=== PATIENT | male | born 1955 | race Caucasian/White ===

== ENCOUNTER 2018-06-14 03:47 | Emergency (ER) | payer MEDICARE, SELFPAY ==
[2018-06-14] VITALS (10 sets, daily range): BP systolic 179–219; BP diastolic 101–112; PULSE 67–91; RESP 14–19; TEMP 36.6; O2SAT 96–98; BMI 38.3
--- NOTE | 2018-06-14 03:55 | EKG12_ITS ---
Test Reason : Blood Pressure : / mmHG Vent. Rate : 070 BPM Atrial Rate : 070 BPM P-R Int : 162 ms QRS Dur : 094 ms QT Int : 440 ms P-R-T Axes : 037 -39 -16 degrees QTc Int : 475 ms Sinus rhythm with Premature atrial complexes Left axis deviation Inferior infarct , age undetermined, cannot be excluded Abnormal ECG Confirmed by ASHWINI NDIAYE, STEVEN ([id number]), commercial production editor HAILEE COLON ([id number] on 06/16/2018 10:59:57 AM Referred By: DEBI Confirmed By:STEVEN MARADIAGA MD
--- NOTE | 2018-06-14 03:57 | ED.DCSUM_ITS ---
- ER Visit Summary Date of Service: 06/14/18 Chief Complaint: Woke up sweaty History of Present Illness: The patient is a 62 M with no primary care physician. Reports an hour and a half ago he woke from sleep with a night sweats. He denies any fever or chills. No chest pain, cough, or shortness of breath. No abdominal pain, nausea, vomiting, or diarrhea. No dysuria or frequency. No headache. No numbness or weakness. Physical Examination: Vitals: Stable. Afebrile. General: Well-nourished and well-developed. Head: Normocephalic atraumatic. Neck: Supple, no lymphadenopathy. No JVD. Nontender. Cardiovascular: Regular rate and rhythm. No murmurs. Respiratory: No respiratory distress. Clear to auscultation bilaterally. Abdominal: Soft, nontender, nondistended, normal bowel sounds. No guarding, rebound, or peritoneal signs. Back: Nontender. Extremities: Nontender, 3+ pitting edema of his lower extremity bilaterally. Skin: Normal color, no rash. Neurologic: Alert and oriented ?3. Cranial nerves II through XII are intact. Normal strength and sensation. Psych: Normal affect. Test Results: EKG is sinus at [address] changes. Q's inferiorly. No old EKG for comparison. CBC is marked for monocytes of 11. Chem-7 marked potassium 3.1, glucose 120, BUN 35, creatinine 2.14. Initial troponin 0 0.543. Chest x-ray shows no acute disease. Emergency Department Course and Treatment: Patient had an IV placed. He was given aspirin p.o. He is resting comfortably. Treatment Plan: Patient was discussed with Dr. Briggs. He will be admitted to the hospital for further evaluation and treatment. Dr. Briggs spoke with Dr. Daly and he has to the patient be transferred to a tertiary care center. The patient has been seen at [facility] by a vascular surgeon is asked for transfer there. Disposition: Admitted in improved condition. Impression: 1. Diaphoresis. 2. Indeterminate troponin. 3. Renal insufficiency. 4. Hypokalemia. 5. CHRISTA score of 2. This note was generated with [employer] dictation software. It may contain incorrect words, spelling, and punctuation that were not noted in review of the chart prior to signing ED Disposition - Plan for ED Patient: Chief Complaint: General Illness Referrals: [facility] Doctor,Out of [Primary Care Provider] -
[2018-06-14] MEDS: Aspirin 81 MG TAB.CHEW 324 MG PO (04:03)
--- NOTE | 2018-06-14 04:05 | RAD_ITS ---
STUDY: X-RAY CHEST REASON FOR EXAM: Male, 62 years old. Patient woke up not feeling well. TECHNIQUE: AP portable chest. COMPARISON: March 26, 2007. FINDINGS: The lungs are clear and expanded. There is no demonstrated pleural abnormality. Surgical clips overlying the base of the neck on the right and the right lung apex. No pneumothorax. Normal size heart. Normal mediastinum and cirilo. Normal visualized pulmonary arteries. Normal visualized aortic arch and descending thoracic aorta. Normal visualized thoracic spine. Normal visualized ribs, clavicles, and shoulders. There is no demonstrated abnormality of the visualized soft tissue structures of the upper abdomen. RAD/Chest 1 View (Portable) IMPRESSION: No acute cardiopulmonary disease. Electronically Signed: Alfonso Curiel MD at 5:04 EDT , Service support ,
[2018-06-14 04:32] LABS: Absolute Neutrophil Count 4.9 X10^3/uL (2.0-7.7); Basophil# 0.05 X10^3/uL; Basophil% 0.6 % (0-1); Eosinophil# 0.43 X10^3/uL; Eosinophils% 4.9 % (0-5); Hematocrit 46.8 % (40-54); Hemoglobin 16.4 g/dl (13.0-16.5); Lymphocyte % 28.2 % (19-41); Mean Corpuscular Hgb 31.8 pg (27.0-32.0); Mean Corpuscular Volume 90.9 fL (80-94); Mean Platelet Vol. 11.1 fl (6.2-12.0); Monocyte# 0.94 X10^3/uL; Monocyte% 10.6 % (0-10); Neutrophil # 4.92 X10^3/uL (2.7-7.7); Neutrophil % 55.5 % (47-70); POSITIVE COUNT NO; POSITIVE DIFFERENTIAL NO; POSITIVE MORPHOLOGY NO; Platelet Count 187 K/mm3 (150-450); RBC Distribution Width CV 13.2 % (11.6-14.6); RBC Distribution Width SD 43.3 fl (35.1-43.9); Red Blood Count 5.15 M/mm3 (4.6-6.2); White Blood Count 8.9 K/mm3 (4.4-11.0)
[2018-06-14 04:49] LABS: Anion Gap 10 (5-15); BUN 35 mg/dL (7-18); BUN/Creat Ratio 16.4 RATIO (10-20); Calcium,Total 8.7 mg/dL (8.5-10.1); Chloride 104 mmol/L (98-107); Creatinine, Serum 2.14 mg/dL (0.70-1.30); EST Glomerular Filtration Rate 33 mL/min (>60); Est Glom Filt Rate - Afr Amer 40 mL/min (>60); Estimated Creatinine Clearance 38.12 ml/min; Glucose 122 mg/dL (74-106); Potassium 3.1 mmol/L (3.5-5.1); Sodium Level 139 mmol/L (136-145)
--- NOTE | 2018-06-14 05:10 | PCM.HP.STD ---
Problem List (1) Chest pain Status: Acute Qualifiers: Chest pain type: unspecified Qualified Code(s): R07.9 - Chest pain, unspecified (2) HTN (hypertension) Status: Chronic Qualifiers: Hypertension type: essential hypertension Qualified Code(s): I10 - Essential (primary) hypertension (3) Obesity (BMI 30-39.9) Status: Chronic (4) Tobacco use Status: Chronic (5) Rheumatoid arthritis Status: Chronic Qualifiers: Rheumatoid arthritis location: unspecified site Rheumatoid factor presence: unspecified presence Qualified Code(s): M06.9 - Rheumatoid arthritis, unspecified History of Present Illness Date of Admission: 06/14/18 Chief Complaint: Diaphoresis, BL UE paresthesias The patient is a 62 y/o M w/ PMHx: Chronic BL LE Lymphedema w/ PVD, ? 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 In the ED upon evaluation he notes feeling improved since the initial onset but anxious given his need for admission. He notes that he following w/ his Grey Inspector who also is his primary care physician. He notes recent labs and denies any baseline renal disease. In the ED work-up included T 98, heart rate 74, BP initially 215/103--> 200/112, respiratory rate 18, 97% on room air, CBC unremarkable, BMP with potassium 3.1, BUN/creatinine 35/2.14, glucose 122, troponin 0 0.543, chest x-ray with no acute finding, EKG with non-specific changes but no comparison. In the ED patient administered aspirin 324 mg p.o. ?1. Past Medical History Past Medical History (Chronic Problems): Chronic Problems HTN (hypertension) (Chronic) Obesity (BMI 30-39.9) (Chronic) Tobacco use (Chronic) Rheumatoid arthritis (Chronic) Allergies No Known Allergies Allergy (Verified 06/14/18 03:48) Home Medications: Ambulatory Orders Medication Instructions Recorded Amlodipine [Norvasc] 10 mg PO DAILY 06/14/18 Aspirin [Aspirin, Baby] 162 mg PO DAILY@0800 06/14/18 Atenolol [Atenolol] 100 mg PO DAILY 06/14/18 Surgical History: - - 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 Psychiatric History: No pertinent psych hx Lives: Spouse/ Significant Other Smoking Status: Current every day smoker - Audra approximate one half pack per day since teenager although he did quit intermittently in between. Tobacco Use: Cigarettes Alcohol: None Drugs: None - *Family History Maternal History Items: - - Patient notes a maternal family history of heart disease/CO, age 8888 year old. Paternal History Items: Heart Disease, - - Father w/ Review of Systems Constitutional: Reports: Malaise, Weakness, Fatigue. Denies: Chills, Fever, Weight Change HEENT: Denies: Head Aches, Sinus Congestion, Sinus Drainage Cardiovascular: Reports: Edema. Denies: Chest Pain, Palpitations Respiratory: Denies: Cough, Shortness of breath at rest, Sputum production Gastrointestinal: Denies: Abdominal Pain, Nausea, Vomiting Genitourinary: Denies: Dysuria Musculoskeletal: Reports: Arm Pain. Denies: Joint Pain, Joint Tenderness Skin: Denies: Rash, Wounds Neurological: Denies: Numbness, Tingling, Focal weakness Psychiatric: Denies: Anxiety, Depression, Homicidal Ideations, Suicidal Ideations Hematologic/ Lymphatic: Denies: Easy Bruising, Easy Bleeding VTE Information - Inpt Only VTE Present on Admission: No VTE Mechan Device Prophylaxis: SCD's VTE Pharm Prophylaxis ordered?: Yes Patient Problems: Active and Suspected Problems Chest pain (Acute) Subjective: Seated upright in the ED bed, fatigued appearance, notes prior paresthesias and diaphoresis have since resolved. Objective: Physical Examination: General: awake, alert, oriented x 3 and cooperative, seated upright in the ED bed in no apparent distress. Skin: normal color, turgor, no icterus, cyanosis except notable BL LE chronic venous stasis skin changes and severe bilateral lower extremity lymphedema. HEENT: AT/NC, EOMI, PERRLA, MMM, no carotid bruits or JVD noted; ever thickened neck makes examination occult. Lungs: CTA bilaterally, moderate effort, mild decrease BL bases, no rales, ronchi or wheezing. Heart: Regular rate and rhythm; no gallop, rub audible. Abdomen: soft, obese, NTTP, ND, normal BS, no HSM; however, habitus makes examination difficult. Extremities: no cyanosis, clubbing, tonic bilateral lower extremity venous skin changes and severe lymphedema extending to knee bilaterally. Neurological: patient awake, alert, oriented x 3; cognitive function intact; pupils equally reactive to light and accomodation; cranial nerves II-XII grossly normal, moving all 4 extremities, no focal deficits, strength moderately to severely globally decreased secondary to acute presentation. Psychiatric: affect appears normal, no acute evidence of depressive or anxiety feelings. - Physical Exam Vital Signs Temp Pulse Resp BP Pulse Ox 98 F 91 19 H 200/112 H 98 06/14/18 03:48 06/14/18 05:03 06/14/18 05:03 06/14/18 05:03 06/14/18 05:03 Oxygen Flow Rate (L/min) 2 Oxygen Delivery Method Nasal Cannula Weight: 275 lb 2.19 oz Body Mass Index (BMI) 38.3 Laboratory Tests Past 24 Hrs 06/14/18 06/14/18 04:00 04:00 WBC 8.9 RBC 5.15 Hgb 16.4 Hct 46.8 MCV 90.9 MCH 31.8 MCHC 35.0 RDW 13.2 RDW Differential 43.3 Plt Count 187 MPV 11.1 Immature Gran % (Auto) 0.200 Neut % (Auto) 55.5 Lymph % (Auto) 28.2 [place] % (Auto) 10.6 H Eos % (Auto) 4.9 Baso % (Auto) 0.6 Absolute Neuts (auto) 4.9 Absolute Lymphs (auto) 2.50 Total Counted Not Reportable Sodium 139 Potassium 3.1 L Chloride 104 Carbon Dioxide 25.0 Anion Gap 10 BUN 35 H Creatinine 2.14 H Estim Creat Clear Calc 38.12 Est GFR (MDRD) Af Amer 40 L Est GFR (MDRD) Non-Af 33 L BUN/Creatinine Ratio 16.4 Glucose 122 H Calcium 8.7 Troponin I 0.543 H Assessment/Plan All Active Problems Chest pain (Acute) The patient is a 62 y/o M w/ PMHx: Chronic BL LE Lymphedema w/ PVD, ? 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 (1) Chest Pain w/ Acute NSTEMI: EKG in ED w/ non-specific changes but no comparison, CXR w/ no acute process. Trop elevated, 0.543. Will admit to ICU if unable to lower BP appropriate without drip usage, otherwise will transition to PCU, maintain on a monitored bed, continue serial cardiac enzymes and EKGs. Obtain magnesium level upon admission. Start Heparin drip given unclear trending of enzymes. Continue medical management w/ asa, BB, add statin w/ AM FLP. Cardiology consulted. Maintain NPO. ASA, NG, morphine. ECHO pending. (2) Hypertensive emergency: BP initially 215/103--> 200/112, requested labetolol in the ED, if BP improved w/ regimen will consider admission to the PCU; however, if intractable may need to consider ICU w/ NG or alternate agent. Awaiting Cardiology input. (3) Hypokalemia: Admission K+ 3.1, supplementation given, repeat level in AM. (4) ? ANI versus possible CKD unclear stage: Unclear baseline renal function, noted normal per patient, admission BUN/Cr 35/2.14, will hydrate, obtain FeNa, repeat BMP in AM, renal US. Given possible need for cardiac catheterization will attempt to reach out to his physicians to obtain baseline renal function. (5) Hyperglycemia: Admission glucose 122, hemoglobin A1c pending. (6) Obesity: Weight loss and lifestyle changes encouraged, nutrition consulted. (7) Hypertension: Continue home regimen including atenolol, Norvasc, PRN hydralazine. (8) Tobacco Abuse: Encouraged cessation, inpatient consultation per RT, NR if desired. (9) Rheumatoid Arthritis: Regimen noted listed, does following w/ Rheumatology. (10) Chronic Lymphedema w/ PVD: Notable on examination, has never worn compression. (11) DVT Prophylaxis: SCDs, heparin drip. FOLLOWING EVALUATION OF PATIENT DISCUSSED WITH CARDIOLOGY, DR. MARADIAGA AND GIVEN HISTORY, POSSIBLE UNDERLYING VASCULAR ISSUES, ANI OR POSSIBLE CKD W/ CURRENT PRESENTATION REQUESTED PATIENT BE TRANSFERRED FROM THE ED TO TERTIARY FACILITY. PATIENT REQUESTED [facility] THIS IS WHERE IS VASCULAR SURGEON IS LOCATED WHO PERFORMED THE ANEURYSM REPAIR. Code Visit Procedures: Other Procedure - See Report - ED Consultation: [id number]
--- NOTE | 2018-06-14 05:31 | HP.PCM_ITS ---
Problem List (1) Chest pain Status: Acute Qualifiers: Chest pain type: unspecified Qualified Code(s): R07.9 - Chest pain, unspecified (2) HTN (hypertension) Status: Chronic Qualifiers: Hypertension type: essential hypertension Qualified Code(s): I10 - Essential (primary) hypertension (3) Obesity (BMI 30-39.9) Status: Chronic (4) Tobacco use Status: Chronic (5) Rheumatoid arthritis Status: Chronic Qualifiers: Rheumatoid arthritis location: unspecified site Rheumatoid factor presence : unspecified presence Qualified Code(s): M06.9 - Rheumatoid arthritis, unspecified History of Present Illness Date of Admission: 06/14/18 Chief Complaint: Diaphoresis, BL UE paresthesias The patient is a 62 y/o M w/ PMHx: Chronic BL LE Lymphedema w/ PVD, ? 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 In the ED upon evaluation he notes feeling improved since the initial onset but anxious given his need for admission. He notes that he following w/ his Final Application Reviewer who also is his primary care physician. He notes recent labs and denies any baseline renal disease. In the ED work-up included T 98, heart rate 74, BP initially 215/103--> 200/112, respiratory rate 18, 97% on room air, CBC unremarkable, BMP with potassium 3.1, BUN/creatinine 35/2.14, glucose 122, troponin 0 0.543, chest x-ray with no acute finding, EKG with non-specific changes but no comparison. In the ED patient administered aspirin 324 mg p.o. ? 1. Past Medical History Past Medical History (Chronic Problems): Chronic Problems HTN (hypertension) (Chronic) Obesity (BMI 30-39.9) (Chronic) Tobacco use (Chronic) Rheumatoid arthritis (Chronic) Allergies No Known Allergies Allergy (Verified 06/14/18 03:48) Home Medications: Ambulatory Orders Medication Instructions Recorded Amlodipine [Norvasc] 10 mg PO DAILY 06/14/18 Aspirin [Aspirin, Baby] 162 mg PO DAILY@0800 06/14/18 Atenolol [Atenolol] 100 mg PO DAILY 06/14/18 Surgical History: - - 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 Psychiatric History: No pertinent psych hx Lives: Spouse/ Significant Other Smoking Status: Current every day smoker - Audra approximate one half pack per day since teenager although he did quit intermittently in between. Tobacco Use: Cigarettes Alcohol: None Drugs: None - *Family History Maternal History Items: - - Patient notes a maternal family history of heart disease/VT, age 8888 year old. Paternal History Items: Heart Disease, - - Father w/ Review of Systems Constitutional: Reports: Malaise, Weakness, Fatigue. Denies: Chills, Fever, Weight Change HEENT: Denies: Head Aches, Sinus Congestion, Sinus Drainage Cardiovascular: Reports: Edema. Denies: Chest Pain, Palpitations Respiratory: Denies: Cough, Shortness of breath at rest, Sputum production Gastrointestinal: Denies: Abdominal Pain, Nausea, Vomiting Genitourinary: Denies: Dysuria Musculoskeletal: Reports: Arm Pain. Denies: Joint Pain, Joint Tenderness Skin: Denies: Rash, Wounds Neurological: Denies: Numbness, Tingling, Focal weakness Psychiatric: Denies: Anxiety, Depression, Homicidal Ideations, Suicidal Ideations Hematologic/ Lymphatic: Denies: Easy Bruising, Easy Bleeding VTE Information - Inpt Only VTE Present on Admission: No VTE Mechan Device Prophylaxis: SCD's VTE Pharm Prophylaxis ordered?: Yes Patient Problems: Active and Suspected Problems Chest pain (Acute) Subjective: Seated upright in the ED bed, fatigued appearance, notes prior paresthesias and diaphoresis have since resolved. Objective: Physical Examination: General: awake, alert, oriented x 3 and cooperative, seated upright in the ED bed in no apparent distress. Skin: normal color, turgor, no icterus, cyanosis except notable BL LE chronic venous stasis skin changes and severe bilateral lower extremity lymphedema. HEENT: AT/NC, EOMI, PERRLA, MMM, no carotid bruits or JVD noted; ever thickened neck makes examination occult. Lungs: CTA bilaterally, moderate effort, mild decrease BL bases, no rales, ronchi or wheezing. Heart: Regular rate and rhythm; no gallop, rub audible. Abdomen: soft, obese, NTTP, ND, normal BS, no HSM; however, habitus makes examination difficult. Extremities: no cyanosis, clubbing, tonic bilateral lower extremity venous skin changes and severe lymphedema extending to knee bilaterally. Neurological: patient awake, alert, oriented x 3; cognitive function intact; pupils equally reactive to light and accomodation; cranial nerves II-XII grossly normal, moving all 4 extremities, no focal deficits, strength moderately to severely globally decreased secondary to acute presentation. Psychiatric: affect appears normal, no acute evidence of depressive or anxiety feelings. - Physical Exam Vital Signs Temp Pulse Resp BP Pulse Ox 98 F 91 19 H 200/112 H 98 06/14/18 03:48 06/14/18 05:03 06/14/18 05:03 06/14/18 05:03 06/14/18 05:03 Oxygen Flow Rate (L/min) 2 Oxygen Delivery Method Nasal Cannula Weight: 275 lb 2.19 oz Body Mass Index (BMI) 38.3 Laboratory Tests Past 24 Hrs 06/14/18 06/14/18 04:00 04:00 WBC 8.9 RBC 5.15 Hgb 16.4 Hct 46.8 MCV 90.9 MCH 31.8 MCHC 35.0 RDW 13.2 RDW Differential 43.3 Plt Count 187 MPV 11.1 Immature Gran % (Auto) 0.200 Neut % (Auto) 55.5 Lymph % (Auto) 28.2 [place] % (Auto) 10.6 H Eos % (Auto) 4.9 Baso % (Auto) 0.6 Absolute Neuts (auto) 4.9 Absolute Lymphs (auto) 2.50 Total Counted Not Reportable Sodium 139 Potassium 3.1 L Chloride 104 Carbon Dioxide 25.0 Anion Gap 10 BUN 35 H Creatinine 2.14 H Estim Creat Clear Calc 38.12 Est GFR (MDRD) Af Amer 40 L Est GFR (MDRD) Non-Af 33 L BUN/Creatinine Ratio 16.4 Glucose 122 H Calcium 8.7 Troponin I 0.543 H Assessment/Plan All Active Problems Chest pain (Acute) The patient is a 62 y/o M w/ PMHx: Chronic BL LE Lymphedema w/ PVD, ? 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 (1) Chest Pain w/ Acute NSTEMI: EKG in ED w/ non-specific changes but no comparison, CXR w/ no acute process. Trop elevated, 0.543. Will admit to ICU if unable to lower BP appropriate without drip usage, otherwise will transition to PCU, maintain on a monitored bed, continue serial cardiac enzymes and EKGs. Obtain magnesium level upon admission. Start Heparin drip given unclear trending of enzymes. Continue medical management w/ asa, BB, add statin w/ AM FLP. Cardiology consulted. Maintain NPO. ASA, NG, morphine. ECHO pending. (2) Hypertensive emergency: BP initially 215/103--> 200/112, requested labetolol in the ED, if BP improved w/ regimen will consider admission to the PCU; however, if intractable may need to consider ICU w/ NG or alternate agent. Awaiting Cardiology input. (3) Hypokalemia: Admission K+ 3.1, supplementation given, repeat level in AM. (4) ? ANI versus possible CKD unclear stage: Unclear baseline renal function, noted normal per patient, admission BUN/Cr 35/2.14, will hydrate, obtain FeNa, repeat BMP in AM, renal US. Given possible need for cardiac catheterization will attempt to reach out to his physicians to obtain baseline renal function. (5) Hyperglycemia: Admission glucose 122, hemoglobin A1c pending. (6) Obesity: Weight loss and lifestyle changes encouraged, nutrition consulted. (7) Hypertension: Continue home regimen including atenolol, Norvasc, PRN hydralazine. (8) Tobacco Abuse: Encouraged cessation, inpatient consultation per RT, NR if desired. (9) Rheumatoid Arthritis: Regimen noted listed, does following w/ Rheumatology. (10) Chronic Lymphedema w/ PVD: Notable on examination, has never worn compression. (11) DVT Prophylaxis: SCDs, heparin drip. FOLLOWING EVALUATION OF PATIENT DISCUSSED WITH CARDIOLOGY, DR. MARADIAGA AND GIVEN HISTORY, POSSIBLE UNDERLYING VASCULAR ISSUES, ANI OR POSSIBLE CKD W/ CURRENT PRESENTATION REQUESTED PATIENT BE TRANSFERRED FROM THE ED TO TERTIARY FACILITY. PATIENT REQUESTED [facility] THIS IS WHERE IS VASCULAR SURGEON IS LOCATED WHO PERFORMED THE ANEURYSM REPAIR. Code Visit Procedures: Other Procedure - See Report - ED Consultation: [id number]
--- NOTE | 2018-06-14 07:42 | NURSING ---
[facility] ACCEPTING DR STEWARD REPORT [phone]
--- NOTE | 2018-06-14 09:00 | ED.RN ---
lab called with critical lab results trop 1.520. Dr. Bethea made aware. no new orders at this time
== END 2018-06-14 09:14 | disposition short-term general hospital (02) ==
LOC: ED 05:27 → PCU 05:40
PROVIDERS: Emergency Provider Emergency Medicine
DX: R61 Generalized hyperhidrosis (principal); N28.9 Disorder of kidney and ureter, unspecified; E87.6 Hypokalemia; R79.89 Other specified abnormal findings of blood chemistry; I10 Essential (primary) hypertension; M06.9 Rheumatoid arthritis, unspecified; Z72.0 Tobacco use; Z79.82 Long term (current) use of aspirin; Z79.899 Other long term (current) drug therapy
CPT/HCPCS: 71045; 80048; 84484; 85025; 93005; 96361; 96374; 96376; 99285; J7030; J7040; A4216

== ENCOUNTER 2018-11-11 11:09 | Emergency (ER) | payer MEDICARE, SELFPAY ==
[2018-11-11 11:10] VITALS: BP 155/84; PULSE 61; RESP 16; TEMP 36.8; O2SAT 97; BMI 37.6
[2018-11-11] MEDS: Ondansetron 4 MG/2 ML Vial IV ×2 (11:45→14:05)
[2018-11-11] MEDS: morphine 8 MG/ML Syringe IV ×2 (11:45→12:44)
[2018-11-11] MEDS: 0.9% Normal Saline 1,000 ML 150 ML IV (11:49)
[2018-11-11 12:00] LABS: Absolute Lymphocyte Count 1.07 X10^3/ul (0.83-4.51); Absolute Neutrophil Count 8.9 X10^3/uL (2.0-7.7); Basophil# 0.03 X10^3/uL; Basophil% 0.3 % (0-1); Eosinophils% 1.8 % (0-5); Hematocrit 42.1 % (40-54); Hemoglobin 14.2 g/dl (13.0-16.5); Lymphocyte # 1.07 X10^3/ul (4.0); Lymphocyte % 9.7 % (19-41); Mean Corp Hgb Conc 33.7 g/gl (32-36); Mean Corpuscular Hgb 31.1 pg (27.0-32.0); Mean Corpuscular Volume 92.1 fL (80-94); Mean Platelet Vol. 11.2 fl (6.2-12.0); Monocyte# 0.78 X10^3/uL; Monocyte% 7.1 % (0-10); Neutrophil % 80.8 % (47-70); POSITIVE COUNT NO; POSITIVE DIFFERENTIAL NO; POSITIVE MORPHOLOGY NO; Platelet Count 186 K/mm3 (150-450); RBC Distribution Width SD 42.9 fl (35.1-43.9); Red Blood Count 4.57 M/mm3 (4.6-6.2)
[2018-11-11 12:08] LABS: Anion Gap 12 (5-15); BUN 33 mg/dL (7-18); BUN/Creat Ratio 13.4 RATIO (10-20); Calcium,Total 8.7 mg/dL (8.5-10.1); Chloride 104 mmol/L (98-107); Creatinine, Serum 2.47 mg/dL (0.70-1.30); EST Glomerular Filtration Rate 28 mL/min (>60); Est Glom Filt Rate - Afr Amer 34 mL/min (>60); Estimated Creatinine Clearance 33.03 ml/min; Glucose 147 mg/dL (74-106); Potassium 3.6 mmol/L (3.5-5.1); Sodium Level 139 mmol/L (136-145)
[2018-11-11 12:28] LABS: White Blood Cells 0 SEEN /hpf (0-5)
[2018-11-11 12:29] LABS: Color, Urine Yellow (Yellow); Glucose, Dipstick Normal (Normal); Ketone-Dipstick Negative (Negative); Leukocyte Esterase-Dipstick Negative /ul (Negative); Nitrite-Dipstick Negative (Negative); Occult Blood-Urine 250 /ul (Negative); Protein-Dipstick 500 mg/dl (Negative); Specific Gravity, Urine 1.015 (1.002-1.030); Urine Bilirubin Dipstick Negative (Negative); Urine Clarity Sl. Cloudy (Clear); Urine Urobilinogen Normal (Normal)
[2018-11-11 12:35] LABS: Bacteria RARE /hpf (None Seen); Mucous, Urine RARE /hpf (<or=2+); Red Blood Cells-Urine 10-25 SEEN /hpf (0-5); Squamous Epithelial Cells - UA 0-5 SEEN /hpf (0-5)
--- NOTE | 2018-11-11 12:38 | CT_ITS ---
STUDY: CT ABDOMEN AND PELVIS WITHOUT CONTRAST REASON FOR EXAM: Male, 62 years old. Severe pain following a left renal biopsy. RADIATION DOSAGE (If Supplied By Facility): CTDIvol = ( 14.80 ) mGy, DLP = ( 800.05 ) mGycm TECHNIQUE: Transaxial images were obtained from the dome of the diaphragm to the symphysis pubis without oral contrast, and without intravenous contrast. Sagittal and coronal images were reconstructed. Individualized dose optimization techniques were used for this CT. COMPARISON: None. FINDINGS: Minimal degree of linear atelectasis at the right lung base. Coronary artery calcification. Normal liver. Normal gallbladder and extrahepatic biliary system. Normal spleen. Normal pancreas. Normal bilateral adrenal glands. Normal right kidney. There is evidence of a left perinephric stranding. Mild deformity along the anterior superior aspect of the left kidney most likely the site of the renal biopsy. There is no evidence of perinephric hematoma. Fullness of the left renal pelvis. There is evidence of a focal increased density at the left ureteropelvic junction. This may represent a small blood clot causing mild degree of left renal pelvic dilatation. There is a small hiatal hernia. Normal small intestine. There are multiple colonic diverticula consistent with diverticulosis. The appendix is visualized and appears normal. There is diffuse atherosclerotic calcification of the abdominal aorta, without a demonstrated aneurysm. Normal inferior vena cava. Normal retroperitoneum. Normal urinary bladder. There are prostatic calcifications. There is evidence of prior umbilical hernia repair with a mesh. There are degenerative changes of the visualized lumbar spine. Minimal anterior listhesis of L4 on L5. CT/Abdomen/Pelvis without Cont IMPRESSION: Left perinephric stranding with deformity of the anterior superior aspect of the left kidney most likely the site of the biopsy. Mild degree of dilatation of the left renal pelvis down to a focal area of increased density at the left ureteral pelvic junction most likely representing a small blood clot. No significant perinephric hematoma is seen. Electronically Signed: Pierce Kuhn MD at 13:25 EST Tel [phone], Service support ,
[2018-11-11 13:26] VITALS: BP 166/94; PULSE 69; RESP 18
[2018-11-11] MEDS: HYDROmorphone 1 MG/ML Syringe IV (14:02)
[2018-11-11 14:06] VITALS: BP 179/97; PULSE 72; RESP 18; O2SAT 95
--- NOTE | 2018-11-11 14:45 | ED.VISSUMM ---
- ER Visit Summary Date of Service: 11/11/18 Chief Complaint: Severe left flank pain History of Present Illness: The patient is a 62 M status post left renal biopsy at [facility] yesterday. Presents after speaking with the coordinator at [facility]. He reported chills and sweats this morning in addition to the severe pain. He does report nausea without vomiting or diarrhea. He reported hematuria last evening. He denies gross blood this morning. He denies discomfort with urination. He denies cough, shortness of breath, difficulty breathing or dyspnea on exertion. He denies anginal-like symptoms. He does report generalized weakness. Review of systems otherwise negative. Physical Examination: Vital signs noted and blood pressure is elevated 135/84. He does appear uncomfortable. HEENT exam is unremarkable. Heart is regular without murmur, gallop or rub. S1 and S2 are normal. Lungs are clear to auscultation with good movement of air bilaterally. Abdomen is soft nontender. There is no CVA tenderness noted. Biopsy site is noted with no erythema, warmth, induration or fluctuance. Lower extremity exam is unremarkable. Neuro exam is nonfocal. Test Results: White count is 11.0 with 81 segs no bands. BUN and creatinine are 33 and 2.47 with a GFR of 28. Glucose is 147. There are 5-10 RBCs on microscopic urinalysis. There is no evidence of infection. CT of the abdomen pelvis without contrast was ordered because of the low GFR. There is perinephric stranding with small hematoma and clot resulting in mild hydronephrosis. Emergency Department Course and Treatment: Patient had an IV established was given several doses of morphine IV push and Zofran. He was subsequently given 1 mg of Dilaudid. He states he feels markedly better. The pain is not resolved, however. Treatment Plan: Prescription for Dilaudid and follow-up with real estate underwriter as scheduled Disposition: Discharge to home Impression: Left flank pain secondary to hydronephrosis status post renal biopsy with small hematoma This note was generated with [employer] dictation software. It may contain incorrect words, spelling, and punctuation that were not noted in review of the chart prior to signing ED Disposition - Plan for ED Patient: Disposition: Home or Assisted Living Chief Complaint: Back Instructions: ED Wound Check Post Op No Infec, ED Post Op Pain Prescriptions: HYDROmorphone tablet [Dilaudid] 2 mg PO Q4H PRN PRN 2 Days #12 tab PRN Reason: Severe flank pain Referrals: Care Physician,No Primary [Primary Care Provider] - Additional Instructions: Follow-up with your real estate underwriter as scheduled and/or needed
--- NOTE | 2018-11-11 14:51 | ED.DCSUM_ITS ---
- ER Visit Summary Date of Service: 11/11/18 Chief Complaint: Severe left flank pain History of Present Illness: The patient is a 62 M status post left renal biopsy at [facility] yesterday. Presents after speaking with the coordinator at [facility]. He reported chills and sweats this morning in addition to the severe pain. He does report nausea without vomiting or diarrhea. He reported hematuria last evening. He denies gross blood this morning. He denies discomfort with urination. He denies cough, shortness of breath, difficulty breathing or dyspnea on exertion. He denies anginal-like symptoms. He does report generalized weakness. Review of systems otherwise negative. Physical Examination: Vital signs noted and blood pressure is elevated 135/84. He does appear uncomfortable. HEENT exam is unremarkable. Heart is regular without murmur, gallop or rub. S1 and S2 are normal. Lungs are clear to auscultation with good movement of air bilaterally. Abdomen is soft nontender. There is no CVA tenderness noted. Biopsy site is noted with no erythema, warmth, induration or fluctuance. Lower extremity exam is unremarkable. Neuro exam is nonfocal. Test Results: White count is 11.0 with 81 segs no bands. BUN and creatinine are 33 and 2.47 with a GFR of 28. Glucose is 147. There are 5-10 RBCs on microscopic urinalysis. There is no evidence of infection. CT of the abdomen pelvis without contrast was ordered because of the low GFR. There is perinephric stranding with small hematoma and clot resulting in mild hydronephrosis. Emergency Department Course and Treatment: Patient had an IV established was given several doses of morphine IV push and Zofran. He was subsequently given 1 mg of Dilaudid. He states he feels markedly better. The pain is not resolved, however. Treatment Plan: Prescription for Dilaudid and follow-up with hvac controls technician as scheduled Disposition: Discharge to home Impression: Left flank pain secondary to hydronephrosis status post renal biopsy with small hematoma This note was generated with [employer] dictation software. It may contain incorrect words, spelling, and punctuation that were not noted in review of the chart prior to signing ED Disposition - Plan for ED Patient: Disposition: Home or Assisted Living Chief Complaint: Back Instructions: ED Wound Check Post Op No Infec, ED Post Op Pain Prescriptions: HYDROmorphone tablet [Dilaudid] 2 mg PO Q4H PRN PRN 2 Days #12 tab PRN Reason: Severe flank pain Referrals: Care Physician,No Primary [Primary Care Provider] - Additional Instructions: Follow-up with your hvac controls technician as scheduled and/or needed
--- NOTE | 2018-11-11 14:53 | ED.DCSUM_ITS ---
- ER Visit Summary Date of Service: 11/11/18 Chief Complaint: [] History of Present Illness: The patient is a 62 M [] Physical Examination: [] Test Results: [] Emergency Department Course and Treatment: [] Treatment Plan: [] Disposition: [] Impression: [] This note was generated with [employer] dictation software. It may contain incorrect words, spelling, and punctuation that were not noted in review of the chart prior to signing ED Disposition - Plan for ED Patient: Disposition: Home or Assisted Living Chief Complaint: Back Instructions: ED Wound Check Post Op No Infec, ED Post Op Pain Prescriptions: HYDROmorphone tablet [Dilaudid] 2 mg PO Q4H PRN PRN 2 Days #12 tab PRN Reason: Severe flank pain Ondansetron [Zofran Odt] 4 mg PO Q8H PRN PRN #10 tab PRN Reason: Nausea Referrals: Care Physician,No Primary [Primary Care Provider] - Additional Instructions: Follow-up with your manager assisted living as scheduled and/or needed
[2018-11-11 15:16] VITALS: BP 159/102; PULSE 74; RESP 16; O2SAT 92
--- NOTE | 2018-11-11 15:30 | ED.RN ---
reviewed dc instructions. pt concerned for pain levels. conversation with dr domínguez. pt able to take his rx as soon as he gets it filled. tubed rx fro retail pharmacy for pt. to pickup prior to dc. no further needs voiced.
== END 2018-11-11 16:21 | disposition home or self-care (01) ==
PROVIDERS: Emergency Provider Emergency Medicine
DX: N99.840 Postprocedural hematoma of a genitourinary system organ or structure following a genitourinary system procedure (principal); N99.89 Other postprocedural complications and disorders of genitourinary system; N13.30 Unspecified hydronephrosis; E66.9 Obesity, unspecified; Z72.0 Tobacco use
CPT/HCPCS: 74176; 80048; 81001; 85025; 96361; 96374; 96375; 96376; 99284; J7030; A4216; J2405

== ENCOUNTER 2019-11-22 11:34 | Observation (INO) | payer MEDICARE, SELFPAY ==
[2019-11-21 14:29] VITALS: BMI 37.6
[2019-11-22] VITALS (15 sets, daily range): BP systolic 140–165; BP diastolic 78–96; PULSE 64–75; RESP 16–20; TEMP 36.4–36.9; O2SAT 96–98; BMI 40.3
--- NOTE | 2019-11-22 08:52 | EKG12_ITS ---
Test Reason : PREOP Blood Pressure : / mmHG Vent. 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
[2019-11-22] MEDS: 0.45% Normal Saline 1,000 ML 15 ML IV (09:15)
[2019-11-22 09:16] LABS: Hematocrit 30.6 % (40-54); Hemoglobin 10.1 g/dL (13.0-16.5); Mean Corpuscular Hgb 30.9 pg (27.0-32.0); Mean Corpuscular Volume 93.6 fL (80-94); Mean Platelet Vol. 9.9 fl (6.2-12.0); Platelet Count 121 K/mm3 (150-450); RBC Distribution Width CV 15.6 % (11.6-14.6); RBC Distribution Width SD 53.8 fl (35.1-43.9); Red Blood Count 3.27 M/mm3 (4.6-6.2); White Blood Count 6.7 K/mm3 (4.4-11.0)
[2019-11-22 09:32] LABS: Anion Gap 9 (5-15); BUN 102 mg/dL (7-18); Calcium,Total 7.4 mg/dL (8.5-10.1); Chloride 115 mmol/L (98-107); EST Glomerular Filtration Rate 10 mL/min (>60); Est Glom Filt Rate - Afr Amer 12 mL/min (>60); Estimated Creatinine Clearance 12.84 ml/min; Glucose 93 mg/dL (74-106); Potassium 4.2 mmol/L (3.5-5.1); Sodium Level 141 mmol/L (136-145)
--- NOTE | 2019-11-22 09:52 | HP.PCM_ITS ---
Problem List (1) Chronic renal insufficiency, stage V Status: Chronic History and Physical Date of Admission: 11/22/19 [facility] [address] [place], [place] [address] OFFICE VISIT Date of Service: 11/21/19 MR#: [id number] Acct: [id number] Name: BINDU DUMONT Rep #: [id number] : 1955 Provider: Love ott PA-C Age/Sex: 64/M Location: [facility] Status: Signed 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 Placement Branch Coordinator Required: No Is patient in pain?: Yes (generalized) Allergies No Known Allergies Allergy (Verified 11/21/19 14:29) Medications Aspirin [Aspirin, Baby] 81 mg PO DAILY@0800 06/14/18 [History Confirmed 11/21/19] Acetaminophen [Tylenol Extra Strength] 500 mg PO DAILY 11/21/19 [History Confirmed 11/21/19] Carvedilol 25 mg PO BID 11/21/19 [History Confirmed 11/21/19] Cyanocobalamin [Vitamin B12] 500 mcg PO DAILY@0800 11/21/19 [History Confirmed 11/21/19] Nifedipine [Nifedipine ER] 60 mg PO DAILY 11/21/19 [History Confirmed 11/21/19] Pantoprazole Sodium [Protonix] 40 mg PO DAILY 11/21/19 [History Confirmed 11/21/19] Prednisone 20 mg PO DAILY 11/21/19 [History Confirmed 11/21/19] [facility] Medical History Cardiac disease (Acute) Kidney failure due to vascular disorder (Acute) 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 Patient states back in June of 2018 he woke in the middle of the night with tingling all over his body. He presented to the [place] ED and was transferred to [facility] due to possible heart attack/previous subclavian graft placement. Patient noted he was hospitalized for 5 days. He noted there was never a definitive diagnosis made as far as why he had decreased renal function. Patient noted he had a kidney biopsy in November 2018 which was non-specific and did not have a diagnosis. Patient then went to his PCP who referred the patient to Dr. Russo. Dr. Russo ran numerous lab tests which revealed patient had rheumatoid vasculitis. Patient was started on prednisone approximately 1 month ago. He noted unfortunately his kidneys did not rebound back. Patient has never been on dialysis previously. He does not have a current start date for dialysis. Patient states he has discussed with Dr. Russo about a fistula creation which he would like to pursue. He has not had any vein mapping at this point. Patient notes the previous subclavian stent graft was placed approximately 12 years ago after having multiple blood clots in the right upper extremity. ROS General General: Yes fatigue; no weight change, appetite, colon cancer, breast cancer or weakness HEENT HEENT: No difficulty swallowing, eye injury, eye surgery, swollen glands or hoarseness Endo Endocrine: No thyroid disease, diabetes mellitus, thyroid cancer, Hair loss, heat intolerance or cold intolerance Skin Skin: No rash or changing moles Breast Breast: No left breast lump, right breast lump, nipple discharge, breast pain, abnormal mammogram, abnormal US or breast enlargement Musc Musculoskeletal: Yes back problems, arthritis and rheumatoid arthritis; no gout or joint pain Cardio Cardiovascular: Yes murmur; no pacemaker, heart disease, atrial fibrillation, high blood pressure, heart attack, heart stent, palpitations, shortness of breat with exertion or chest pain Psych Psychiatric: No depression, anxiety or hearing voices Resp Respiratory: Yes shortness of breath, No sleep apnea, No cough, No COPD, No asthma, No emphysema, No wheezing Gastro Gastrointestinal: No abdominal pain, No nausea or vomiting, No diarrhea, No constipation, No blood in stool, No acid reflux, No hemorrhoids, No ulcers, No gallbladder problem, No black,tarry stools Matthew Hematologic: Yes blood thinners, No blood disorders, No bleeding, No anemia, No blood clots Neuro Neurologic: No system reviewed and no additional complaints, except as docu, No as per HPI, No abnormal walking, No abnormal hearing, No abnormal movements, No abnormal speech, No behavioral changes, No burning sensations, No confusion, No seizure-like activity, No unsteadiness, No dizziness, No localized weakness, No frequent falls, No headache(s), No lack of coordination, No loss of vision, No memory loss, No numbness, No other visual disturbances, No radiating pain, No restless legs, No sensory deficit, No fainting, No tingling, No tremor(s), No weakness, No other Exam Const General: cooperative, healthy appearing, comfortable, no acute distress [facility] Head: normal to inspection Eyes General: appearance normal, both eyes and all related structures Neck Neck: normal visual inspection Neck mass: No Chest Breast Palpation: No nipple discharge Resp Effort & Inspection: normal respiratory effort Auscultation: clear to auscultation bilaterally Cardio Rate: regular rate Rhythm: regular rhythm Heart Sounds: murmur GI Inspection: normal to inspection, obesity Auscultation: normal bowel sounds Skin General: dry skin Other: right upper chest- two nicely healed incisions noted. Neuro General: no focal motor deficits, CN's II-XI intact bilaterally Extrem General: edema Laterality: bilateral Psych Appearance: grossly normal Affect: normal affect Assessment & Plan Problems 1. Stage 5 chronic kidney disease not on chronic dialysis N18.5 2. Rheumatoid vasculitis M05.[address] Nuñez will plan to perform a left possible right tunneled dialysis chest catheter placement. Procedure details, risks and benefits have been explained. Patient has had the opportunity to ask and have questions answered. Patient verbally understands and agrees with the plan. Patient will be scheduled for vein mapping. He is scheduled for chest catheters for tomorrow. 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 ~ The patient was reevaluated. He apparently has rheumatoid arthritis and rheumatoid vasculitis. Prednisone is not been effective. He has chronic bilateral lower extremity lymphedema and he has significant fluid retention throughout. He has been treated recently with prednisone without benefit. He has had a right subclavian biologic graft placed in treatment of a subclavian artery aneurysm. Clearly he represents a higher risk operative intervention candidate. I have proposed for him a left internal jugular tunneled dialysis catheter placement. With his present we have discussed the technique, benefit, risk, alternatives. He is aware that we anticipate that this is a bridge device and do not anticipate this to be a long-term access. The patient will require future vein mapping of his upper extremities to see if he would be a future fistula candidate. He has significant edema of both upper extremities which would make that surgery quite challenging at this time. We will proceed with placement of the tunneled catheters Arian Nuñez M.D., F.A.C.S.
[2019-11-22] MEDS: Cefazolin 2 GM in 0.9% Normal Saline 100 ML IV (10:17)
--- NOTE | 2019-11-22 10:20 | DCINST_ITS ---
Discharge Diet: Renal Diet Discharge Activity: May Not Drive, May Not Shower Lifting Restrictions: 10 lb weight lifting restriction Additional Dressing/Incision Instructions:: Please keep your catheter sites clean and dry. Dressing changes will be performed per the dialysis center Additional Instructions: You may resume your prednisone today. You may resume your aspirin tomorrow Allergies/Adverse Reactions: Allergies No Known Allergies Allergy (Verified 11/22/19 09:03) Medications to take at Discharge Aspirin [Aspirin, Baby] 81 mg PO DAILY@0806/14/18 Acetaminophen [Tylenol Extra Strength] 500 mg PO DAILY 11/21/19 Carvedilol 25 mg PO BID 11/21/19 Cyanocobalamin [Vitamin B12] 500 mcg PO DAILY@0800 11/21/19 Nifedipine [Nifedipine ER] 60 mg PO DAILY 11/21/19 Pantoprazole Sodium [Protonix] 40 mg PO DAILY 11/21/19 Prednisone 20 mg PO DAILY 11/21/19 Primary Care Physician: Bekah Washington MD [Primary Care Provider] - Test Results: Test results from this visit will be discussed in further detail at your follow- up appointment, if applicable. Please Follow Up With: Arian Nuñez MD - [phone] When: Please plan to follow up in 7 days in the office.
[2019-11-22] MEDS: Heparin 10,000 UNITS/10 ML Vial 10000 UNITS (10:58)
[2019-11-22] MEDS: Bupivacaine Mpf 0.5% 30 ML VIAL (11:07)
--- NOTE | 2019-11-22 11:07 | PCM.OPRPT ---
Problem List (1) Chronic renal insufficiency, stage V Status: Chronic Report of Operation Date of Procedure: 11/22/19 Pre-Operative Diagnosis: Stage V chronic renal insufficiency Post-Operative Diagnosis: Same Surgery/Procedure Performed:: Left internal jugular tunneled dual-lumen palindrome dialysis catheters. 23 cm. Reference #[id number]. Lot #[id number] Description of Surgical Findings:: 64-year-old gentleman was taken the operating room. He received 2 g of Ancef. Because of his shortness of breath he could not be placed supine. The head of the bed was elevated. He underwent monitored anesthesia care local anesthetic. His left neck was and chest were sterilely prepped draped. Ultrasound was used to identify the left internal jugular vein. 1% lidocaine mixed 50-50 with 0.5% Marcaine was used as local anesthetic. Total 20 cc was used. Local was instilled under ultrasound guidance. Micropuncture needle inserted. Micropuncture wire inserted. Micropuncture sheath inserted. 035 J-wire was inserted. The tubing was tunneled from the chest site to the neck. Then serial dilatation performed with fluoroscopic control. The sheath dilator was inserted the wire and dilator removed the catheters and through the sheath the sheath was split. The catheter ended up being in the very proximal SVC. This was a 23 cm catheter placed at essentially full length. It aspirated easily. It was flushed with saline and then with 2 cc heparinized saline per channel. The neck site was closed interrupted 5-0 Vicryl subdermal stitch. The catheter was secured to skin with 3-0 nylon. Silver impregnated dressing followed by Gelfoam and OpSite dressings applied. Counts correct blood loss minimal he tolerated well was taken to recovery room in satisfactory edition without apparent complication. Set portable chest x-ray is pending. Specimens none. Drains none. Blood loss minimal. Arian Nuñez M.D., F.A.C.S. Type of Anesthesia:: Local MAC Anesthesiologist: Rodney Rod
--- NOTE | 2019-11-22 11:23 | RAD_ITS ---
STUDY: X-RAY CHEST REASON FOR EXAM: Male, 64 years old. POST OP HEMODIALYSIS CATHETER PLACEMENT. TECHNIQUE: Hemodialysis catheter placement. COMPARISON: Comparison is made with prior study June 14, 2018. FINDINGS: A left-sided hemodialysis catheter has been placed. The tip is in the proximal portion of the superior vena cava. Surgical clips are seen in the inferior aspect of the right cervical region. There is evidence of a right cervical rib. Mild increased markings at the left lung base suggestive of atelectasis. There is no demonstrated pleural abnormality. Normal size heart. Normal mediastinum and cirilo. Normal visualized pulmonary arteries. There is atherosclerotic tortuosity of the aortic arch and descending thoracic aorta. There are diffuse degenerative changes of the visualized thoracic spine. Normal visualized ribs, clavicles, and shoulders. There is no demonstrated abnormality of the visualized soft tissue structures of the upper abdomen. RAD/CXR for Line Placement IMPRESSION: The tip of the hemodialysis catheter is in the proximal portion of the superior vena cava. Electronically Signed: Pierce Kuhn, at 12:20 EST , Service support ,
--- NOTE | 2019-11-22 11:40 | PCM.PN.BLA ---
Progress Note Chest x-ray demonstrates line to be in the superior vena cava brachiocephalic. No pneumothorax. It aspirated and flushed easily after completion of the procedure. I would recommend utilization. Arian Nuñez M.D., F.A.C.S. STROKE Vital Signs/Narrative: Vital Signs Temp Pulse Resp BP Pulse Ox 11/22/19 11:31 98.4 F 69 18 140/83 H 98 11/22/19 11:25 65 18 141/91 H 98 11/22/19 11:20 65 18 156/82 H 96 11/22/19 11:15 66 18 146/78 H 97 11/22/19 11:10 97.9 F 68 18 153/93 H 98 11/22/19 09:05 98.4 F 74 16 156/89 H 98
--- NOTE | 2019-11-22 12:45 | PCM.CONS.R ---
Consultation - Renal 11/22/19 PCP/ Referring MD: Requesting physician: [] Primary care physician: Bekah Washington MD - History of Present Illness History of Present Illness: The patient is a 64 year old M past medical history as below who underwent placement of left IJ tunneled dialysis catheter today and was found to be short of breath postoperatively. He was admitted to the floor for further evaluation and management. He denies chest pain headache fever chills dysuria hematuria. He has chronic lower extremity edema. 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 He denies abdominal pain nausea vomiting diarrhea. He has no other complaints. He also has some on and off wheezing. He never had dialysis before. He was sent here for placement of IJ tunneled dialysis catheter in order to initiate hemodialysis for likely end-stage renal disease. - Allergies Allergies: Allergies No Known Allergies Allergy (Verified 11/22/19 09:03) - Current Medications Current Medications: Current Medications Acetaminophen (Tylenol) 500 mg PO DAILY [facility] Acetaminophen (Tylenol) 650 mg PO Q6H PRN PRN PRN Reason: Pain Score 1-3/Temp > 100.7 F Hydrocodone Bitart/Acetaminophen (Chester 5mg-325mg) 1 tablet PO Q6H PRN PRN PRN Reason: Pain Score 1-10/10 Al Hydroxide/Mg Hydroxide (Mylanta Ii) 30 ml PO Q6H PRN PRN PRN Reason: Gastric Burning Albuterol Sulfate (Ventolin Aerosols) 2.5 mg INHALATION Q2H PRN PRN PRN Reason: SOB/Wheezing Aspirin (Aspirin, Baby) 81 mg PO DAILY@0800 [facility] Carvedilol (Coreg) 25 mg PO BID [facility] Cyanocobalamin (Vitamin B12) 500 mcg PO DAILY@0800 [facility] Guaifenesin (Robitussin) 20 ml PO Q4H PRN PRN PRN Reason: COUGH Heparin Sodium (Porcine) (Heparin Na) 5,000 unit SC Q8 [facility] Sodium Chloride () 1,000 mls @ 15 mls/hr IV .Q48H [facility] Last Admin: 11/22/19 09:15 Dose: 15 mls/hr Documented by: Nifedipine (Procardia Xl) 60 mg PO DAILY [facility] Nitroglycerin (Nitrostat) 0.4 mg SUBLINGUAL Q5M PRN PRN Reason: CARDIAC/CHEST PAIN Ondansetron HCl (Zofran) 4 mg IV Q8H PRN PRN PRN Reason: NAUSEA/VOMITING Oxycodone HCl (Oxyir) 5 mg PO Q4H PRN PRN PRN Reason: Pain Score 4-5/10 Oxycodone HCl (Oxyir) 10 mg PO Q4H PRN PRN PRN Reason: Pain Score 6-10/10 Pantoprazole Sodium (Protonix) 40 mg PO DAILY [facility] Prednisone () 20 mg PO DAILY@0800 [facility] Promethazine HCl (Phenergan) 25 mg IM Q6H PRN PRN PRN Reason: Breakthrough Nausea/Vomiting Senna/Docusate Sodium (Senokot-S, Mendy-Colace) 2 tablet PO BID PRN PRN PRN Reason: Constipation - Past Medical History Past Medical History (Chronic Problems): Chronic Problems (Last Reviewed 11/21/19 @ 14:27 by Allyssa Carr) Chronic renal insufficiency, stage V (Chronic) HTN (hypertension) (Chronic) Obesity (BMI 30-39.9) (Chronic) Tobacco use (Chronic) Rheumatoid arthritis (Chronic) - Past Surgical History Surgical History: - - 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 - Social History Smoking Status: Light Smoker (<10/day) - Family History Maternal History Items: - - Patient notes a maternal family history of heart disease/IA, age 8888 year old. Paternal History Items: Heart Disease, - - Father w/ Review of Systems Eyes: Reports: - - View of systems is otherwise essentially negative unless noted in the history of present illness. - Physical Exam Vitals/I&O's: Vital Signs Temp Pulse Resp BP Pulse Ox 97.6 F L 65 16 160/94 H 96 11/22/19 12:36 11/22/19 12:36 11/22/19 12:36 11/22/19 12:36 11/22/19 12:36 Oxygen Delivery Method Room Air Weight: 127.459 kg Body Mass Index (BMI) 40.3 Intake and Output for Last 24 Hours 11/20/19 11/21/19 11/22/19 23:59 23:59 23:59 Intake Total 110 / 110 Balance 110 / 110 Cardiovascular: - - LIJ tunneled dialysis catheter Abdomen: Obese Extremities: - - Lower extremity edema pretibial. Laboratory Results 11/22/19 09:08: WBC 6.7, RBC 3.27 L, Hgb 10.1 L, Hct 30.6 L, MCV 93.6, MCH 30.9, MCHC 33.0, RDW Std Deviation 53.8 H, RDW Coeff of Brynn 15.6 H, Plt Count 121 L, MPV 9.9 11/22/19 09:08: Sodium 141, Potassium 4.2, Chloride 115 H, Carbon Dioxide 17.0 L, Anion Gap 9, BUN 102 H*, Creatinine 6.00 H, Estim Creat Clear Calc 12.84, Est GFR (MDRD) Af Amer 12 L, Est GFR (MDRD) Non-Af 10 L, BUN/Creatinine Ratio 17.0, Glucose 93, Calcium 7.4 L Current Medications Acetaminophen (Tylenol) 500 mg PO DAILY [facility] Acetaminophen (Tylenol) 650 mg PO Q6H PRN PRN PRN Reason: Pain Score 1-3/Temp > 100.7 F Hydrocodone Bitart/Acetaminophen (Chester 5mg-325mg) 1 tablet PO Q6H PRN PRN PRN Reason: Pain Score 1-10/10 Al Hydroxide/Mg Hydroxide (Mylanta Ii) 30 ml PO Q6H PRN PRN PRN Reason: Gastric Burning Albuterol Sulfate (Ventolin Aerosols) 2.5 mg INHALATION Q2H PRN PRN PRN Reason: SOB/Wheezing Aspirin (Aspirin, Baby) 81 mg PO DAILY@0800 [facility] Carvedilol (Coreg) 25 mg PO BID [facility] Cyanocobalamin (Vitamin B12) 500 mcg PO DAILY@0800 [facility] Guaifenesin (Robitussin) 20 ml PO Q4H PRN PRN PRN Reason: COUGH Heparin Sodium (Porcine) (Heparin Na) 5,000 unit SC Q8 [facility] Sodium Chloride () 1,000 mls @ 15 mls/hr IV .Q48H [facility] Last Admin: 11/22/19 09:15 Dose: 15 mls/hr Documented by: Nifedipine (Procardia Xl) 60 mg PO DAILY [facility] Nitroglycerin (Nitrostat) 0.4 mg SUBLINGUAL Q5M PRN PRN Reason: CARDIAC/CHEST PAIN Ondansetron HCl (Zofran) 4 mg IV Q8H PRN PRN PRN Reason: NAUSEA/VOMITING Oxycodone HCl (Oxyir) 5 mg PO Q4H PRN PRN PRN Reason: Pain Score 4-5/10 Oxycodone HCl (Oxyir) 10 mg PO Q4H PRN PRN PRN Reason: Pain Score 6-10/10 Pantoprazole Sodium (Protonix) 40 mg PO DAILY [facility] Prednisone () 20 mg PO DAILY@0800 [facility] Promethazine HCl (Phenergan) 25 mg IM Q6H PRN PRN PRN Reason: Breakthrough Nausea/Vomiting Senna/Docusate Sodium (Senokot-S, Mendy-Colace) 2 tablet PO BID PRN PRN PRN Reason: Constipation Assessment/Plan All Active Problems (Last Reviewed 11/21/19 @ 14:27 by Allyssa Carr) Chest pain (Acute) ANI on CKD likely ESRD LE edema Metabolic acidosis Hypertension Status post left IJ tunneled dialysis catheter. We will initiate dialysis today with 1 to 1.5 L fluid removal as tolerated. We will also provide another dialysis treatment tomorrow with UF as tolerated. Case management to help facilitate placement in the dialysis unit. Resume home meds including tapering steroids The above assessment and plan was discussed at length with the patient and his present at the bedside. They were given the opportunity to ask questions and stated those were answered to their satisfaction and both voiced understanding and agreed to proceed with the plan as outlined above. Very much for allowing me to participate in the care of this patient. Please do not hesitate to call if you have any questions or concerns.
--- NOTE | 2019-11-22 13:00 | PCM.HP.STD ---
Problem List (1) Chronic renal insufficiency, stage V Status: Chronic (2) HTN (hypertension) Status: Chronic Qualifiers: Hypertension type: essential hypertension Qualified Code(s): I10 - Essential (primary) hypertension (3) Obesity (BMI 30-39.9) Status: Chronic (4) Tobacco use Status: Chronic (5) Rheumatoid arthritis Status: Chronic Qualifiers: Rheumatoid arthritis location: unspecified site Rheumatoid factor presence: unspecified presence Qualified Code(s): M06.9 - Rheumatoid arthritis, unspecified (6) Dyspnea Status: Acute History of Present Illness Date of Admission: 11/22/19 Chief Complaint: Dyspnea The patient is a 64 year old M with past medical history significant for 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 Arian Nuñez on 11/22/2019. Patient was reported to be dyspneic following his procedure. Decision was made to admit patient for initiation of dialysis in the hospital. 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 Allergies No Known Allergies Allergy (Verified 11/22/19 09:03) Home Medications: Ambulatory Orders Medication Instructions Recorded Aspirin [Aspirin, Baby] 81 mg PO DAILY@0800 06/14/18 Acetaminophen [Tylenol Extra 500 mg PO DAILY 11/21/19 Strength] Carvedilol 25 mg PO BID 11/21/19 Cyanocobalamin [Vitamin B12] 500 mcg PO DAILY@0800 11/21/19 Nifedipine [Nifedipine ER] 60 mg PO DAILY 11/21/19 Pantoprazole Sodium [Protonix] 40 mg PO DAILY 11/21/19 Prednisone 20 mg PO DAILY 11/21/19 Surgical History: Surgical History (Last Reviewed 11/22/19 @ 13:08 by Landon Carmen MD) History of bicuspid aortic valve Z87.74 History of umbilical hernia Z87.19 S/P knee surgery Z98.890 s/p subclavian graft Surgical History: - - 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 Psychiatric History: No pertinent psych hx Smoking Status: Light Smoker (<10/day) - *Family History Maternal History Items: - - Patient notes a maternal family history of heart disease/HI, age 8888 year old. Paternal History Items: Heart Disease, - - Father w/ Review of Systems Constitutional: Denies: Anorexia, Chills, Fever, Night Sweats, Weight Change HEENT: Denies: Head Aches, Sinus Congestion, Sinus Drainage Cardiovascular: Denies: Chest Pain, Orthopnea, Palpitations, Paroxysmal Noc. Dyspnea Respiratory: Reports: Shortness of breath at rest. Denies: Cough Gastrointestinal: Denies: Abdominal Pain, Hematemesis, Hematochezia, Nausea, Melena, Vomiting Genitourinary: Denies: Dysuria, Frequency, Hematuria, Urgency Musculoskeletal: Denies: Joint Pain, Joint Tenderness Skin: Denies: Rash Neurological: Denies: Focal weakness, Numbness, Tingling Psychiatric: Denies: Homicidal Ideations, Suicidal Ideations Hematologic/ Lymphatic: Denies: Easy Bruising, Easy Bleeding VTE Information - Inpt Only VTE Present on Admission: Yes VTE Mechan Device Prophylaxis: None VTE Pharm Prophylaxis ordered?: Yes Patient Problems: Active and Suspected Problems (Last Reviewed 11/21/19 @ 14:27 by Allyssa Carr) Dyspnea (Acute) Objective: GENERAL: cooperative HEENT: Atraumatic; EYES; Anicteric, Normal Conjunctiva NECK; supple, normal thyroid, RESPIRATORY: Diminished to auscultation CARDIOVASCULAR: Regular S1 S2, GI: soft, normoactive bowel sounds, : No Renal angle tenderness; EXTREMITIES: No edema, no clubbing, MUSCULOSKELETAL: no muscle waisting NEURO: Awake; no lateralizing signs. SKIN: No Rash PSYCH; Flat affect - Physical Exam Vitals/I&O's: Vital Signs Temp Pulse Resp BP Pulse Ox 97.6 F L 65 16 160/94 H 96 11/22/19 12:36 11/22/19 12:36 11/22/19 12:36 11/22/19 12:36 11/22/19 12:36 Oxygen Delivery Method Room Air Weight: 127.5 kg Body Mass Index (BMI) 40.3 Intake and Output for Last 24 Hours 11/20/19 11/21/19 11/22/19 23:59 23:59 23:59 Intake Total 110 / 110 Balance 110 / 110 Laboratory Results 11/22/19 09:08: WBC 6.7, RBC 3.27 L, Hgb 10.1 L, Hct 30.6 L, MCV 93.6, MCH 30.9, MCHC 33.0, RDW Std Deviation 53.8 H, RDW Coeff of Brynn 15.6 H, Plt Count 121 L, MPV 9.9 11/22/19 09:08: Sodium 141, Potassium 4.2, Chloride 115 H, Carbon Dioxide 17.0 L, Anion Gap 9, BUN 102 H*, Creatinine 6.00 H, Estim Creat Clear Calc 12.84, Est GFR (MDRD) Af Amer 12 L, Est GFR (MDRD) Non-Af 10 L, BUN/Creatinine Ratio 17.0, Glucose 93, Calcium 7.4 L 11/22/19 12:54: WBC Pending, RBC Pending, Hgb Pending, Hct Pending, MCV Pending, MCH Pending, MCHC Pending, RDW Std Deviation Pending, RDW Coeff of Brynn Pending, Plt Count Pending 11/22/19 12:54: Sodium Pending, Potassium Pending, Chloride Pending, Carbon Dioxide Pending, Anion Gap Pending, BUN Pending, Creatinine Pending, Est GFR (MDRD) Af Amer Pending, Est GFR (MDRD) Non-Af Pending, BUN/Creatinine Ratio Pending, Glucose Pending, Calcium Pending, Magnesium Pending, Total Bilirubin Pending, AST Pending, ALT Pending, Alkaline Phosphatase Pending, Total Protein Pending, Albumin Pending Current Medications Acetaminophen (Tylenol) 500 mg PO DAILY [facility] Acetaminophen (Tylenol) 650 mg PO Q6H PRN PRN PRN Reason: Pain Score 1-3/Temp > 100.7 F Hydrocodone Bitart/Acetaminophen ([place] 5mg-325mg) 1 tablet PO Q6H PRN PRN PRN Reason: Pain Score 1-10/10 Al Hydroxide/Mg Hydroxide (Mylanta Ii) 30 ml PO Q6H PRN PRN PRN Reason: Gastric Burning Albuterol Sulfate (Ventolin Aerosols) 2.5 mg INHALATION Q2H PRN PRN PRN Reason: SOB/Wheezing Aspirin (Aspirin, Baby) 81 mg PO DAILY@0800 [facility] Carvedilol (Coreg) 25 mg PO BID [facility] Cyanocobalamin (Vitamin B12) 500 mcg PO DAILY@0800 [facility] Guaifenesin (Robitussin) 20 ml PO Q4H PRN PRN PRN Reason: COUGH Heparin Sodium (Porcine) (Heparin Na) 5,000 unit SC Q8 [facility] Sodium Chloride () 1,000 mls @ 15 mls/hr IV .Q48H [facility] Last Admin: 11/22/19 09:15 Dose: 15 mls/hr Documented by: Sodium Chloride () 250 mls @ 15 mls/hr IV .[id number] PRN PRN Reason: Saline Flush Sodium Chloride () 250 mls @ 15 mls/hr IV .[id number] PRN PRN Reason: Additional IVPB Infusion Nifedipine (Procardia Xl) 60 mg PO DAILY [facility] Nitroglycerin (Nitrostat) 0.4 mg SUBLINGUAL Q5M PRN PRN Reason: CARDIAC/CHEST PAIN Ondansetron HCl (Zofran) 4 mg IV Q8H PRN PRN PRN Reason: NAUSEA/VOMITING Oxycodone HCl (Oxyir) 5 mg PO Q4H PRN PRN PRN Reason: Pain Score 4-5/10 Oxycodone HCl (Oxyir) 10 mg PO Q4H PRN PRN PRN Reason: Pain Score 6-10/10 Pantoprazole Sodium (Protonix) 40 mg PO DAILY [facility] Prednisone () 20 mg PO DAILY@0800 [facility] Promethazine HCl (Phenergan) 25 mg IM Q6H PRN PRN PRN Reason: Breakthrough Nausea/Vomiting Senna/Docusate Sodium (Senokot-S, Mendy-Colace) 2 tablet PO BID PRN PRN PRN Reason: Constipation Sodium Chloride () 10 - 40 ml IV UD PRN PRN Reason: SALINE FLUSH Assessment/Plan All Active Problems (Last Reviewed 11/21/19 @ 14:27 by Allyssa Carr) Dyspnea (Acute) Chest pain (Resolved) Patient is a 64-year-old gentleman who developed dyspnea following insertion of temporary dialysis catheter 1. Acute dyspnea Suspected to be secondary to congestive heart failure from fluid overload as a result of patient underlying impaired kidney function. Admitted to monitored bed consult placed to nephrology for patient undergo emergency dialysis echo ordered for EF assessment 2. 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 Essential hypertension ?Did continue home medications 4. Rheumatoid arthritis ?Currently asymptomatic symptoms well controlled with prednisone 5. Tobacco dependence ?Counseled on cessation offered nicotine patch for tobacco cravings 6. DVT prophylaxis ?SC heparin Code Visit OBSV E&M: 35932 Initial observation care L3
[2019-11-22 13:02] LABS: Hematocrit 29.6 % (40-54); Hemoglobin 9.8 g/dL (13.0-16.5); Mean Corp Hgb Conc 33.1 g/dL (32-36); Mean Corpuscular Volume 93.7 fL (80-94); Platelet Count 114 K/mm3 (150-450); RBC Distribution Width CV 15.5 % (11.6-14.6); RBC Distribution Width SD 53.7 fl (35.1-43.9); Red Blood Count 3.16 M/mm3 (4.6-6.2); White Blood Count 5.8 K/mm3 (4.4-11.0)
[2019-11-22] MEDS: Heparin Injection (Vial) 5,000 UNIT/ML VIAL 5000 UNIT SC ×2 (13:16→23:05)
[2019-11-22] MEDS: Acetaminophen 325 MG Tablet 650 MG PO (13:16)
[2019-11-22 13:17] LABS: AST(SGOT) 13 U/L (15-37); Alanine Aminotransfer ALT/SGPT 27 U/L (16-61); Albumin, Serum 2.9 g/dL (3.2-5.0); Alkaline Phosphatase 35 U/L (45-117); Anion Gap 7 (5-15); BUN 100 mg/dL (7-18); BUN/Creat Ratio 16.7 RATIO (10-20); Calcium,Total 7.3 mg/dL (8.5-10.1); Chloride 118 mmol/L (98-107); Creatinine, Serum 5.99 mg/dL (0.70-1.30); EST Glomerular Filtration Rate 10 mL/min (>60); Est Glom Filt Rate - Afr Amer 12 mL/min (>60); Estimated Creatinine Clearance 12.86 ml/min; Glucose 107 mg/dL (74-106); Magnesium 1.9 mg/dL (1.6-2.6); Potassium 4.1 mmol/L (3.5-5.1); Protein, Total 5.9 g/dL (6.4-8.2); Sodium Level 142 mmol/L (136-145)
--- NOTE | 2019-11-22 15:54 | CASEMGMT ---
Per Dr. Rueda, pt needs set up for OP dialysis at this time. This RN CM to room to speak with pt and regarding same and per pt/, they have started educational classes at [facility]. Per Brian at [facility], pt has not had a referral sent yet at this time. Pt/ state they would like referral faxed to [facility] and pt states would like TTS afternoons. Referral faxed to [facility] admissions at this time and to [facility]. Call to [facility] and Shereen made aware of pt referral at this time, voices understanding. She gave this RN CM a chair time of TTS 1150 at this time. Hep B antigen, antibody,and total core still need to be drawn at this time. Per pt/, pt to run for 2 hours tonight and 3 hours tomorrow. Pt is end stage renal per Dr. Rueda's note. Shereen states that pt could come to OP dialysis on if ready for discharge. Nargis, PCU charge, updated at this time, voices understanding. Mary RN CM
[2019-11-22] MEDS: Heparin 10,000 UNITS/10 ML Vial 2500 UNITS IV (22:10)
--- NOTE | 2019-11-22 22:17 | DIALYSIS ---
Hemodialysis completed as ordered. x 2 hours. -1500ml off. Stable t/o. tolerated well. CVC ran w/o issue. CVC closed with heparin to each lumen fill volume. Post op dressing not changed today. blood under dressing noted however not saturated. Report to Leatha FERNANDEZ at bedside given.
[2019-11-22] MEDS: Carvedilol 25 MG Tablet PO (23:04)
[2019-11-23] VITALS (9 sets, daily range): BP systolic 179–193; BP diastolic 77–100; PULSE 63–80; RESP 16–18; TEMP 36.8–37.1; O2SAT 97
[2019-11-23] MEDS: Acetaminophen 325 MG Tablet 650 MG PO (05:22)
[2019-11-23] MEDS: Heparin Injection (Vial) 5,000 UNIT/ML VIAL 5000 UNIT SC (05:22)
[2019-11-23] MEDS: hydrALAZINE 20 MG/ML Vial 10 MG IV (05:31)
[2019-11-23] MEDS: 0.9% Saline Lock 10 ML Syringe IV (05:31)
[2019-11-23 05:54] LABS: Absolute Lymphocyte Count 0.67 X10^3/uL (0.83-4.51); Absolute Neutrophil Count 3.2 X10^3/uL (2.0-7.7); Eosinophil# 0.05 X10^3/uL; Eosinophils% 1.1 % (0-5); Hematocrit 26.1 % (40-54); Hemoglobin 8.6 g/dL (13.0-16.5); Lymphocyte # 0.67 X10^3/ul (4.0); Lymphocyte % 14.8 % (19-41); Mean Corpuscular Hgb 30.4 pg (27.0-32.0); Mean Corpuscular Volume 92.2 fL (80-94); Mean Platelet Vol. 11.3 fl (6.2-12.0); Monocyte# 0.56 X10^3/uL; Monocyte% 12.4 % (0-10); NRBC Flagged by Analyzer 0 % (0-5); Neutrophil # 3.23 X10^3/uL (2.7-7.7); Neutrophil % 71.3 % (47-70); POSITIVE COUNT YES; Platelet Count 97 K/mm3 (150-450); RBC Distribution Width CV 15.4 % (11.6-14.6); RBC Distribution Width SD 52.3 fl (35.1-43.9); Red Blood Count 2.83 M/mm3 (4.6-6.2); White Blood Count 4.5 K/mm3 (4.4-11.0)
[2019-11-23 06:05] LABS: Anion Gap 8 (5-15); BUN 79 mg/dL (7-18); BUN/Creat Ratio 15.8 RATIO (10-20); Chloride 112 mmol/L (98-107); EST Glomerular Filtration Rate 13 mL/min (>60); Est Glom Filt Rate - Afr Amer 15 mL/min (>60); Estimated Creatinine Clearance 15.41 ml/min; Glucose 85 mg/dL (74-106); Magnesium 1.7 mg/dL (1.6-2.6); Phosphorus 4.4 mg/dL (2.5-4.9); Potassium 3.5 mmol/L (3.5-5.1); Sodium Level 141 mmol/L (136-145)
--- NOTE | 2019-11-23 06:07 | PN.SURG_ITS ---
Patient Problems: Active and Suspected Problems (Last Reviewed 11/22/19 @ 13:08 by Landon Carmen MD) Dyspnea (Acute) Subjective: Pt has no complaints SOB improved - Physical Exam Vitals/I&O's: Vital Signs Temp Pulse Resp BP Pulse Ox 98.3 F 68 18 179/88 H 97 11/23/19 03:30 11/23/19 05:31 11/23/19 03:30 11/23/19 05:30 11/23/19 03:30 Oxygen Delivery Method Room Air Weight: 281 lb 1.43 oz Body Mass Index (BMI) 40.3 Intake and Output for Last 24 Hours 11/21/19 11/22/19 11/23/19 23:59 23:59 23:59 Intake Total 909.5 / 909.5 Output Total 1750 / 1750 200 / 200 Balance -840.5 / -840.5 -200 / -200 Lungs: - - catheter site clean Laboratory Results 11/22/19 09:08: WBC 6.7, RBC 3.27 L, Hgb 10.1 L, Hct 30.6 L, MCV 93.6, MCH 30.9, MCHC 33.0, RDW Std Deviation 53.8 H, RDW Coeff of Brynn 15.6 H, Plt Count 121 L, MPV 9.9 11/22/19 09:08: Sodium 141, Potassium 4.2, Chloride 115 H, Carbon Dioxide 17.0 L , Anion Gap 9, BUN 102 H*, Creatinine 6.00 H, Estim Creat Clear Calc 12.84, Est GFR (MDRD) Af Amer 12 L, Est GFR (MDRD) Non-Af 10 L, BUN/Creatinine Ratio 17.0, Glucose 93, Calcium 7.4 L 11/22/19 12:54: WBC 5.8, RBC 3.16 L, Hgb 9.8 L, Hct 29.6 L, MCV 93.7, MCH 31.0, MCHC 33.1, RDW Std Deviation 53.7 H, RDW Coeff of Brynn 15.5 H, Plt Count 114 L, MPV 10.0 11/22/19 12:54: Sodium 142, Potassium 4.1, Chloride 118 H, Carbon Dioxide 17.0 L , Anion Gap 7, BUN 100 H, Creatinine 5.99 H, Estim Creat Clear Calc 12.86, Est GFR (MDRD) Af Amer 12 L, Est GFR (MDRD) Non-Af 10 L, BUN/Creatinine Ratio 16.7, Glucose 107 H, Calcium 7.3 L, Magnesium 1.9, Total Bilirubin 0.20, AST 13 L, ALT 27, Alkaline Phosphatase 35 L, Total Protein 5.9 L, Albumin 2.9 L, Globulin 3.0, Albumin/Globulin Ratio 1.0 11/22/19 19:35: Hep B Core Total Ab Pending 11/22/19 19:35: Hep Bs Antigen Pending, Hep Bs Antibody Pending 11/23/19 05:05: WBC Pending, RBC Pending, Hgb Pending, Hct Pending, MCV Pending, MCH Pending, MCHC Pending, RDW Std Deviation Pending, RDW Coeff of Brynn Pending, Plt Count Pending, Neut % (Auto) Pending, Absolute Neuts (auto) Pending 11/23/19 05:05: Sodium 141, Potassium 3.5, Chloride 112 H, Carbon Dioxide 21.0, Anion Gap 8, BUN 79 H, Creatinine 5.00 H, Estim Creat Clear Calc 15.41, Est GFR (MDRD) Af Amer 15 L, Est GFR (MDRD) Non-Af 13 L, BUN/Creatinine Ratio 15.8, Glucose 85, Calcium 7.0 L, Phosphorus 4.4, Magnesium 1.7 Current Medications Acetaminophen (Tylenol) 500 mg PO DAILY [facility] Acetaminophen (Tylenol) 650 mg PO Q6H PRN PRN PRN Reason: Pain Score 1-3/Temp > 100.7 F Last Admin: 11/23/19 05:22 Dose: 650 mg Documented by: Hydrocodone Bitart/Acetaminophen ([place] 5mg-325mg) 1 tablet PO Q6H PRN PRN PRN Reason: Pain Score 1-10/10 Al Hydroxide/Mg Hydroxide (Mylanta Ii) 30 ml PO Q6H PRN PRN PRN Reason: Gastric Burning Albuterol Sulfate (Ventolin Aerosols) 2.5 mg INHALATION Q2H PRN PRN PRN Reason: SOB/Wheezing Aspirin (Aspirin, Baby) 81 mg PO DAILY@0800 [facility] Carvedilol (Coreg) 25 mg PO BID [facility] Last Admin: 01/14/20 23:04 Dose: 25 mg Documented by: Cyanocobalamin (Vitamin B12) 500 mcg PO DAILY@0800 [facility] Guaifenesin (Robitussin) 20 ml PO Q4H PRN PRN PRN Reason: COUGH Heparin Sodium (Porcine) (Heparin Na) 5,000 unit SC Q8 [facility] Last Admin: 11/23/19 05:22 Dose: 5,000 unit Documented by: Heparin Sodium (Porcine) () 2,500 units IV UD PRN PRN Reason: Dialysis Cath Heparin Flush Last Admin: 11/22/19 22:10 Dose: 2,500 units Documented by: Hydralazine HCl (Apresoline Iv) 10 mg IV Q4H PRN PRN PRN Reason: SBP > 160 Last Admin: 11/23/19 05:31 Dose: 10 mg Documented by: Sodium Chloride () 250 mls @ 15 mls/hr IV .[id number] PRN PRN Reason: Saline Flush Sodium Chloride () 250 mls @ 15 mls/hr IV .[id number] PRN PRN Reason: Additional IVPB Infusion Nifedipine (Procardia Xl) 60 mg PO DAILY [facility] Nitroglycerin (Nitrostat) 0.4 mg SUBLINGUAL Q5M PRN PRN Reason: CARDIAC/CHEST PAIN Ondansetron HCl (Zofran) 4 mg IV Q8H PRN PRN PRN Reason: NAUSEA/VOMITING Oxycodone HCl (Oxyir) 5 mg PO Q4H PRN PRN PRN Reason: Pain Score 4-5/10 Oxycodone HCl (Oxyir) 10 mg PO Q4H PRN PRN PRN Reason: Pain Score 6-10/10 Pantoprazole Sodium (Protonix) 40 mg PO DAILY [facility] Prednisone () 20 mg PO DAILY@0800 [facility] Promethazine HCl (Phenergan) 25 mg IM Q6H PRN PRN PRN Reason: Breakthrough Nausea/Vomiting Senna/Docusate Sodium (Senokot-S, Mendy-Colace) 2 tablet PO BID PRN PRN PRN Reason: Constipation Sodium Chloride () 10 - 40 ml IV UD PRN PRN Reason: SALINE FLUSH Last Admin: 11/23/19 05:31 Dose: 10 ml Documented by: Sodium Chloride () 10 ml IV UD PRN PRN Reason: Dialysis Catheter Flush Medical Necessity - Tobacco Use Smoking Status: Light Smoker (<10/day) Assessment/Plan All Active Problems (Last Reviewed 11/22/19 @ 13:08 by Landon Carmen MD) Dyspnea (Acute) Chest pain (Resolved) Plan office f/u after vein mapping
[2019-11-23 06:14] LABS: Differential Indicated SCAN CRITERIA MET
[2019-11-23 06:21] LABS: Platelet Estimate MOD DEC (ADEQ)
--- NOTE | 2019-11-23 09:55 | NURSING ---
Dialysis in progress
--- NOTE | 2019-11-23 10:01 | ECHOD_ITS ---
Reason For Study: Dyspnea/SOB Procedure This was a 2D Doppler, Color Flow transthoracic echocardiogram. The study was technically difficult. Exam performed portable in patient room. Left Ventricle Moderate concentric left ventricular hypertrophy. The estimated ejection fraction is 65 %. Stage 1 diastolic dysfunction. No regional wall motion abnormalities noted. Right Ventricle Normal size and thickness. Normal systolic function. Atria Normal left atrium. Normal right atrium. Normal atrial septum. Mitral Valve Mild diffuse mitral valve thickening. Trivial mitral valve insufficiency. Tricuspid Valve Normal tricuspid valve. Unable to estimate RV systolic pressure due to insufficient tricuspid regurgitant envelope. Aortic Valve Bicuspid aortic valve. Severe focal aortic valve thickening. Proable immobile right coronary cusp. Moderate aortic stenosis. Peak aortic valve gradient 54 mmHg. Mean aortic valve gradient 29 mmHg. Calculated aortic valve area (continuity equation) is 1.2 cm2. Mild (1+) aortic valve insufficiency. Pulmonic Valve Normal pulmonic valve. Great Vessels Normal aortic root. Mild atherosclerosis of the aortic arch. The inferior vena cava is dilated. No collapse of the inferior vena cava. Pericardium/Pleural No pericardial effusion. MMode/2D Measurements & Calculations LVIDd: 5.4 cm IVSd: 1.7 cm LVOT diam: 2.1 cm LVIDs: 3.5 cm LVPWd: 1.5 cm LVOT area: 3.4 cm2 RVDd: 4.3 cm FS: 35.3 % Ao root diam: 3.1 cm LAV(MOD-bp): 78.7 ml LVAd ap4: 37.5 cm2 LAV(MOD-bp) Indexed: 32.6 ml/m2 EDV(MOD-sp4): 126.4 ml LAV(MOD-sp2): 103.3 ml EDV(sp4-el): 130.4 ml LAV(MOD-sp4): 56.5 ml LVAs ap4: 21.1 cm2 ESV(MOD-sp4): 52.6 ml ESV(sp4-el): 51.3 ml EF(MOD-sp4): 58.4 % EF(sp4-el): 60.6 % SV(MOD-sp4): 73.9 ml SV(sp4-el): 79.1 ml LA A4 area: 20.4 cm2 LA dimension(2D): 5.4 cm RA A4 area: 19.0 cm2 Doppler Measurements & Calculations MV E max tejas: 95.1 cm/sec Lat Peak E' Tejas: 10.3 cm/sec Med Peak E' Tejas: 10.4 cm/sec MV A max tejas: 131.0 cm/sec E/E' lat: 9.3 E/E' med: 9.2 MV E/A: 0.73 Ao V2 max: 368.5 cm/sec AI max tejas: 569.8 cm/sec LV V1 max: 125.1 cm/sec Ao max P.3 mmHg AI max P.9 mmHg LV V1 max P.3 mmHg Ao V2 mean: 252.1 cm/sec LV V1 mean P.1 mmHg Ao mean P.9 mmHg AI dec slope: 364.7 cm/sec2 LV V1 mean: 96.5 cm/sec Ao V2 VTI: 82.4 cm AI P1/2t: 457.6 msec LV V1 VTI: 29.6 cm BRITTANY(I,D): 1.2 cm2 BRITTANY(V,D): 1.1 cm2 SV(LVOT): 100.1 ml PA V2 max: 110.7 cm/sec Interpretation Summary Moderate concentric left ventricular hypertrophy. The estimated ejection fraction is 65 %. Stage 1 diastolic dysfunction. Trivial mitral valve insufficiency. Unable to estimate RV systolic pressure due to insufficient tricuspid regurgitant envelope. Proable immobile right coronary cusp. Possible bicuspid aortic valve. Moderate aortic stenosis. Peak aortic valve gradient 54 mmHg. Mean aortic valve gradient 29 mmHg. Calculated aortic valve area (continuity equation) is 1.2 cm2. Mild (1+) aortic valve insufficiency. There is no comparison study available. The study was technically difficult. Ordering Physician: Landon Carmen Referring Physician: Bekah Washington Performed By: Lesly Badillo, DON, RVT
--- NOTE | 2019-11-23 10:01 | PCM.PN.HOSP ---
Patient Problems: Active and Suspected Problems (Last Reviewed 11/22/19 @ 13:08 by Landon Carmen MD) Dyspnea (Acute) Reason for Visit: Acute dyspnea following insertion of dialysis catheter Subjective: Patient is a 64-year-old gentleman who developed dyspnea following insertion of temporary dialysis catheter Patient admitted to a monitored bed for initiation of dialysis Objective: GENERAL: cooperative HEENT: Atraumatic; EYES; Anicteric, Normal Conjunctiva NECK; supple, normal thyroid, RESPIRATORY: Diminished to auscultation CARDIOVASCULAR: Regular S1 S2, GI: soft, normoactive bowel sounds, : No Renal angle tenderness; EXTREMITIES: No edema, no clubbing, MUSCULOSKELETAL: no muscle waisting NEURO: Awake; no lateralizing signs. SKIN: No Rash PSYCH; Flat affect Vitals/I&O's: Vital Signs Temp Pulse Resp BP Pulse Ox 98.2 F 80 18 193/92 H 97 11/23/19 08:52 11/23/19 08:52 11/23/19 08:52 11/23/19 08:52 11/23/19 08:52 Oxygen Delivery Method Room Air Weight: 127.5 kg Body Mass Index (BMI) 40.3 Intake and Output for Last 24 Hours 11/21/19 11/22/19 11/23/19 23:59 23:59 23:59 Intake Total 909.5 / 909.5 Output Total 1750 / 1750 200 / 200 Balance -840.5 / -840.5 -200 / -200 Laboratory Results 11/22/19 12:54: WBC 5.8, RBC 3.16 L, Hgb 9.8 L, Hct 29.6 L, MCV 93.7, MCH 31.0, MCHC 33.1, RDW Std Deviation 53.7 H, RDW Coeff of Brynn 15.5 H, Plt Count 114 L, MPV 10.0 11/22/19 12:54: Sodium 142, Potassium 4.1, Chloride 118 H, Carbon Dioxide 17.0 L, Anion Gap 7, BUN 100 H, Creatinine 5.99 H, Estim Creat Clear Calc 12.86, Est GFR (MDRD) Af Amer 12 L, Est GFR (MDRD) Non-Af 10 L, BUN/Creatinine Ratio 16.7, Glucose 107 H, Calcium 7.3 L, Magnesium 1.9, Total Bilirubin 0.20, AST 13 L, ALT 27, Alkaline Phosphatase 35 L, Total Protein 5.9 L, Albumin 2.9 L, Globulin 3.0, Albumin/Globulin Ratio 1.0 11/22/19 19:35: Hep B Core Total Ab Pending 11/22/19 19:35: Hep Bs Antigen Pending, Hep Bs Antibody Pending 11/23/19 05:05: WBC 4.5, RBC 2.83 L, Hgb 8.6 L, Hct 26.1 L, MCV 92.2, MCH 30.4, MCHC 33.0, RDW Std Deviation 52.3 H, RDW Coeff of Brynn 15.4 H, Plt Count 97 L, MPV 11.3, Immature Gran % (Auto) 0.400, Neut % (Auto) 71.3 H, Lymph % (Auto) 14.8 L, [place] % (Auto) 12.4 H, Eos % (Auto) 1.1, Baso % (Auto) 0.0, Absolute Neuts (auto) 3.2, Absolute Lymphs (auto) 0.67 L, Nucleated RBC % 0, Platelet Estimate MOD 11/23/19 05:05: Sodium 141, Potassium 3.5, Chloride 112 H, Carbon Dioxide 21.0, Anion Gap 8, BUN 79 H, Creatinine 5.00 H, Estim Creat Clear Calc 15.41, Est GFR (MDRD) Af Amer 15 L, Est GFR (MDRD) Non-Af 13 L, BUN/Creatinine Ratio 15.8, Glucose 85, Calcium 7.0 L, Phosphorus 4.4, Magnesium 1.7 Current Medications Acetaminophen (Tylenol) 500 mg PO DAILY [facility] Acetaminophen (Tylenol) 650 mg PO Q6H PRN PRN PRN Reason: Pain Score 1-3/Temp > 100.7 F Last Admin: 11/23/19 05:22 Dose: 650 mg Documented by: Hydrocodone Bitart/Acetaminophen ([place] 5mg-325mg) 1 tablet PO Q6H PRN PRN PRN Reason: Pain Score 1-10/10 Al Hydroxide/Mg Hydroxide (Mylanta Ii) 30 ml PO Q6H PRN PRN PRN Reason: Gastric Burning Albuterol Sulfate (Ventolin Aerosols) 2.5 mg INHALATION Q2H PRN PRN PRN Reason: SOB/Wheezing Aspirin (Aspirin, Baby) 81 mg PO DAILY@0800 [facility] Carvedilol (Coreg) 25 mg PO BID [facility] Last Admin: 11/22/19 23:04 Dose: 25 mg Documented by: Cyanocobalamin (Vitamin B12) 500 mcg PO DAILY@0800 [facility] Guaifenesin (Robitussin) 20 ml PO Q4H PRN PRN PRN Reason: COUGH Heparin Sodium (Porcine) (Heparin Na) 5,000 unit SC Q8 [facility] Last Admin: 11/23/19 05:22 Dose: 5,000 unit Documented by: Heparin Sodium (Porcine) () 2,500 units IV UD PRN PRN Reason: Dialysis Cath Heparin Flush Last Admin: 11/22/19 22:10 Dose: 2,500 units Documented by: Hydralazine HCl (Apresoline Iv) 10 mg IV Q4H PRN PRN PRN Reason: SBP > 160 Last Admin: 11/23/19 05:31 Dose: 10 mg Documented by: Sodium Chloride () 250 mls @ 15 mls/hr IV .[id number] PRN PRN Reason: Saline Flush Sodium Chloride () 250 mls @ 15 mls/hr IV .[id number] PRN PRN Reason: Additional IVPB Infusion Nifedipine (Procardia Xl) 60 mg PO DAILY [facility] Nitroglycerin (Nitrostat) 0.4 mg SUBLINGUAL Q5M PRN PRN Reason: CARDIAC/CHEST PAIN Ondansetron HCl (Zofran) 4 mg IV Q8H PRN PRN PRN Reason: NAUSEA/VOMITING Oxycodone HCl (Oxyir) 5 mg PO Q4H PRN PRN PRN Reason: Pain Score 4-5/10 Oxycodone HCl (Oxyir) 10 mg PO Q4H PRN PRN PRN Reason: Pain Score 6-10/10 Pantoprazole Sodium (Protonix) 40 mg PO DAILY [facility] Prednisone () 20 mg PO DAILY@0800 [facility] Promethazine HCl (Phenergan) 25 mg IM Q6H PRN PRN PRN Reason: Breakthrough Nausea/Vomiting Senna/Docusate Sodium (Senokot-S, Mendy-Colace) 2 tablet PO BID PRN PRN PRN Reason: Constipation Sodium Chloride () 10 - 40 ml IV UD PRN PRN Reason: SALINE FLUSH Last Admin: 11/23/19 05:31 Dose: 10 ml Documented by: Sodium Chloride () 10 ml IV UD PRN PRN Reason: Dialysis Catheter Flush STROKE Vital Signs/Narrative: Vital Signs Temp Pulse Resp BP Pulse Ox 11/23/19 08:52 98.2 F 80 18 193/92 H 97 11/23/19 07:47 63 Medical Necessity - Tobacco Use Smoking Status: Light Smoker (<10/day) Assessment/Plan All Active Problems (Last Reviewed 11/22/19 @ 13:08 by Landon Carmen MD) Dyspnea (Acute) Chest pain (Resolved) Patient is a 64-year-old gentleman who developed dyspnea following insertion of temporary dialysis catheter 1. Acute dyspnea Suspected to be secondary to congestive heart failure from fluid overload as a result of patient underlying impaired kidney function. Admitted to monitored bed consult placed to nephrology for patient undergo emergency dialysis echo ordered for EF assessment ?11/23/2019. Patient had his first dialysis session on 11/22/2019. Is scheduled to have repeat this a.m. 2. 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 Essential hypertension ?Did continue home medications 4. Rheumatoid arthritis ?Currently asymptomatic symptoms well controlled with prednisone 5. Tobacco dependence ?Counseled on cessation offered nicotine patch for tobacco cravings 6. DVT prophylaxis ?SC heparin Code Visit OBSV E&M: 67257 Subsequent observation care L3
[2019-11-23 10:45] LABS: Hepatitis B Surface Antibody Non-Reactive; Hepatitis B Surface Antigen Non-Reactive (Nonreactive)
[2019-11-23 10:47] LABS: Iron 71 ug/dL (65-175); Iron Binding Capacity,Total 166 ug/dL (250-450); PERCENT IRON SATURATION 42.8 % (15.0-55.0)
--- NOTE | 2019-11-23 11:07 | DCINST_ITS ---
- Discharge Diagnoses Current Active Problems: Current Active and Chronic Problems (Last Reviewed 11/22/19 @ 13:08 by Landon Carmen MD) Chronic renal insufficiency, stage V (Chronic) Dyspnea (Acute) You will use the following diet at home:: Renal (restricted protein/sodium) Discharge Activity: May Not Drive, May Not Shower Additional Dressing/Incision Instructions:: Please keep your catheter sites clean and dry. Dressing changes will be performed per the dialysis center Allergies/Adverse Reactions: Allergies No Known Allergies Allergy (Verified 11/22/19 09:03) Medications to take at Discharge Aspirin [Aspirin, Baby] 81 mg PO DAILY@0800 06/14/18 Acetaminophen [Tylenol Extra Strength] 500 mg PO DAILY 11/21/19 Carvedilol 25 mg PO BID 11/21/19 Cyanocobalamin [Vitamin B12] 500 mcg PO DAILY@0800 11/21/19 Nifedipine [Nifedipine ER] 60 mg PO DAILY 11/21/19 Pantoprazole Sodium [Protonix] 40 mg PO DAILY 11/21/19 Prednisone 20 mg PO DAILY 11/21/19 Primary Care Physician: Bekah Washington MD [Primary Care Provider] - Please follow up with your Primary Care Physician in: in 1 week Test Results: Test results from this visit will be discussed in further detail at your follow- up appointment, if applicable. Please Follow Up With: Arian Nuñez MD - [phone] When: Please plan to follow up in 7 days in the office. Please Follow Up With: Hanh Russo MD When: as scheduled Proposed Discharge Date: 11/23/19
--- NOTE | 2019-11-23 11:07 | PCM.PROGNOTE ---
Patient Problems: Active and Suspected Problems (Last Reviewed 11/22/19 @ 13:08 by Landon Carmen MD) Dyspnea (Acute) Subjective: no sob/cp tolerating well dialysis - Physical Exam Vitals/I&O's: Vital Signs Temp Pulse Resp BP Pulse Ox 98.2 F 70 18 193/92 H 97 11/23/19 08:52 11/23/19 10:54 11/23/19 08:52 11/23/19 08:52 11/23/19 08:52 Oxygen Delivery Method Room Air Weight: 127.5 kg Body Mass Index (BMI) 40.3 Intake and Output for Last 24 Hours 11/21/19 11/22/19 11/23/19 23:59 23:59 23:59 Intake Total 909.5 / 909.5 Output Total 1750 / 1750 200 / 200 Balance -840.5 / -840.5 -200 / -200 General: Alert, Oriented x3, Cooperative HEENT: Atraumatic, PERRLA, EOMI, Normocephalic Neck: Supple, No JVD, Negative Carotid Bruits Lungs: Clear to auscultation, Normal air movement Cardiovascular: Regular rate, No murmurs Abdomen: Bowel Sounds Present, Soft, Non Tender, Obese - IJ tunneled dialysis catheter Extremities: No edema, Capillary Refill Less than 3 Seconds Skin: No rashes, No breakdown Musculoskeletal: No Tenderness to Palpation of Joints or Extremities Neurological: Cranial nerves II-XII grossly intact Psych/Mental Status: Normal Affect, Appropriate Laboratory Results 11/22/19 12:54: WBC 5.8, RBC 3.16 L, Hgb 9.8 L, Hct 29.6 L, MCV 93.7, MCH 31.0, MCHC 33.1, RDW Std Deviation 53.7 H, RDW Coeff of Brynn 15.5 H, Plt Count 114 L, MPV 10.0 11/22/19 12:54: Sodium 142, Potassium 4.1, Chloride 118 H, Carbon Dioxide 17.0 L, Anion Gap 7, BUN 100 H, Creatinine 5.99 H, Estim Creat Clear Calc 12.86, Est GFR (MDRD) Af Amer 12 L, Est GFR (MDRD) Non-Af 10 L, BUN/Creatinine Ratio 16.7, Glucose 107 H, Calcium 7.3 L, Magnesium 1.9, Total Bilirubin 0.20, AST 13 L, ALT 27, Alkaline Phosphatase 35 L, Total Protein 5.9 L, Albumin 2.9 L, Globulin 3.0, Albumin/Globulin Ratio 1.0 11/22/19 19:35: Hep B Core Total Ab Pending 11/22/19 19:35: Hep Bs Antigen Non-Reactive, Hep Bs Antibody Non-Reactive 11/23/19 05:05: WBC 4.5, RBC 2.83 L, Hgb 8.6 L, Hct 26.1 L, MCV 92.2, MCH 30.4, MCHC 33.0, RDW Std Deviation 52.3 H, RDW Coeff of Brynn 15.4 H, Plt Count 97 L, MPV 11.3, Immature Gran % (Auto) 0.400, Neut % (Auto) 71.3 H, Lymph % (Auto) 14.8 L, [place] % (Auto) 12.4 H, Eos % (Auto) 1.1, Baso % (Auto) 0.0, Absolute Neuts (auto) 3.2, Absolute Lymphs (auto) 0.67 L, Nucleated RBC % 0, Platelet Estimate MOD 11/23/19 05:05: Sodium 141, Potassium 3.5, Chloride 112 H, Carbon Dioxide 21.0, Anion Gap 8, BUN 79 H, Creatinine 5.00 H, Estim Creat Clear Calc 15.41, Est GFR (MDRD) Af Amer 15 L, Est GFR (MDRD) Non-Af 13 L, BUN/Creatinine Ratio 15.8, Glucose 85, Calcium 7.0 L, Phosphorus 4.4, Magnesium 1.7 11/23/19 05:05: Vitamin B12 Pending 11/23/19 05:05: Iron 71, TIBC 166 L, Iron Saturation 42.8 Current Medications Acetaminophen (Tylenol) 500 mg PO DAILY [facility] Acetaminophen (Tylenol) 650 mg PO Q6H PRN PRN PRN Reason: Pain Score 1-3/Temp > 100.7 F Last Admin: 11/23/19 05:22 Dose: 650 mg Documented by: Hydrocodone Bitart/Acetaminophen ([place] 5mg-325mg) 1 tablet PO Q6H PRN PRN PRN Reason: Pain Score 1-10/10 Al Hydroxide/Mg Hydroxide (Mylanta Ii) 30 ml PO Q6H PRN PRN PRN Reason: Gastric Burning Albuterol Sulfate (Ventolin Aerosols) 2.5 mg INHALATION Q2H PRN PRN PRN Reason: SOB/Wheezing Aspirin (Aspirin, Baby) 81 mg PO DAILY@0800 [facility] Carvedilol (Coreg) 25 mg PO BID [facility] Last Admin: 11/22/19 23:04 Dose: 25 mg Documented by: Cyanocobalamin (Vitamin B12) 500 mcg PO DAILY@0800 [facility] Guaifenesin (Robitussin) 20 ml PO Q4H PRN PRN PRN Reason: COUGH Heparin Sodium (Porcine) (Heparin Na) 5,000 unit SC Q8 [facility] Last Admin: 11/23/19 05:22 Dose: 5,000 unit Documented by: Heparin Sodium (Porcine) () 2,500 units IV UD PRN PRN Reason: Dialysis Cath Heparin Flush Last Admin: 11/22/19 22:10 Dose: 2,500 units Documented by: Hydralazine HCl (Apresoline Iv) 10 mg IV Q4H PRN PRN PRN Reason: SBP > 160 Last Admin: 11/23/19 05:31 Dose: 10 mg Documented by: Sodium Chloride () 250 mls @ 15 mls/hr IV .[id number] PRN PRN Reason: Saline Flush Sodium Chloride () 250 mls @ 15 mls/hr IV .[id number] PRN PRN Reason: Additional IVPB Infusion Nifedipine (Procardia Xl) 60 mg PO DAILY [facility] Nitroglycerin (Nitrostat) 0.4 mg SUBLINGUAL Q5M PRN PRN Reason: CARDIAC/CHEST PAIN Ondansetron HCl (Zofran) 4 mg IV Q8H PRN PRN PRN Reason: NAUSEA/VOMITING Oxycodone HCl (Oxyir) 5 mg PO Q4H PRN PRN PRN Reason: Pain Score 4-5/10 Oxycodone HCl (Oxyir) 10 mg PO Q4H PRN PRN PRN Reason: Pain Score 6-10/10 Pantoprazole Sodium (Protonix) 40 mg PO DAILY [facility] Prednisone () 20 mg PO DAILY@0800 [facility] Promethazine HCl (Phenergan) 25 mg IM Q6H PRN PRN PRN Reason: Breakthrough Nausea/Vomiting Senna/Docusate Sodium (Senokot-S, Mendy-Colace) 2 tablet PO BID PRN PRN PRN Reason: Constipation Sodium Chloride () 10 - 40 ml IV UD PRN PRN Reason: SALINE FLUSH Last Admin: 11/23/19 05:31 Dose: 10 ml Documented by: Sodium Chloride () 10 ml IV UD PRN PRN Reason: Dialysis Catheter Flush Medical Necessity - Tobacco Use Smoking Status: Light Smoker (<10/day) Assessment/Plan All Active Problems (Last Reviewed 11/22/19 @ 13:08 by Landon Carmen MD) Dyspnea (Acute) Chest pain (Resolved) ANI on CKD likely ESRD LE edema Metabolic acidosis Hypertension Status post left IJ tunneled dialysis catheter. seen on dialysis. The patient is tolerating dialysis well.
--- NOTE | 2019-11-23 11:09 | DS.PCM_ITS ---
Discharge Date and Diagnosis - Problem List Patient Problems: Active and Suspected Problems (Last Reviewed 11/22/19 @ 13:08 by Landon Carmen MD) Dyspnea (Acute) Date of Admission: 11/22/19 Date of Discharge: 11/23/19 - Primary Discharge Diagnosis Active and Suspected Problems (Last Reviewed 11/22/19 @ 13:08 by Landon Carmen MD) Dyspnea (Acute) - Secondary Discharge Diagnosis Chronic Problems (Last Reviewed 11/22/19 @ 13:08 by Landon Carmen MD) Chronic renal insufficiency, stage V (Chronic) HTN (hypertension) (Chronic) Obesity (BMI 30-39.9) (Chronic) Tobacco use (Chronic) Rheumatoid arthritis (Chronic) Hospital Course and Treatment Imaging Results: 11/23/19 10:01 Echo Complete [ECHO] Routine Summary of Care Provided: Patient is a 64-year-old gentleman who developed dyspnea following insertion of temporary dialysis catheter 1. Acute dyspnea Suspected to be secondary to congestive heart failure from fluid overload as a result of patient underlying impaired kidney function. Admitted to monitored bed consult placed to nephrology for patient undergo emergency dialysis echo ordered for EF assessment (results pending at the time of discharge) ?11/23/2019. Patient had his first dialysis session on 11/22/2019. Peaked on the day of his discharge. Patient already has a chair at the dialysis center. He is scheduled to undergo vein mapping on 11/24/2019 2. 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 Essential hypertension ?Did continue home medications 4. Rheumatoid arthritis ?Currently asymptomatic symptoms well controlled with prednisone 5. Tobacco dependence ?Counseled on cessation offered nicotine patch for tobacco cravings 6. DVT prophylaxis ?SC heparin Patient Problems: Active and Suspected Problems (Last Reviewed 11/22/19 @ 13:08 by Landon aCrmen MD) Dyspnea (Acute) - Physical Exam Vitals/I&O's: Vital Signs Temp Pulse Resp BP Pulse Ox 98.2 F 70 18 193/92 H 97 11/23/19 08:52 11/23/19 10:54 11/23/19 08:52 11/23/19 08:52 11/23/19 08:52 Oxygen Delivery Method Room Air Weight: 127.5 kg Body Mass Index (BMI) 40.3 Intake and Output for Last 24 Hours 11/21/19 11/22/19 11/23/19 23:59 23:59 23:59 Intake Total 909.5 / 909.5 Output Total 1750 / 1750 200 / 200 Balance -840.5 / -840.5 -200 / -200 General: Alert HEENT: Atraumatic Neck: Supple Neurological: Neuro grossly intact Psych/Mental Status: Normal Affect Laboratory Results 11/22/19 12:54: WBC 5.8, RBC 3.16 L, Hgb 9.8 L, Hct 29.6 L, MCV 93.7, MCH 31.0, MCHC 33.1, RDW Std Deviation 53.7 H, RDW Coeff of Brynn 15.5 H, Plt Count 114 L, MPV 10.0 11/22/19 12:54: Sodium 142, Potassium 4.1, Chloride 118 H, Carbon Dioxide 17.0 L , Anion Gap 7, BUN 100 H, Creatinine 5.99 H, Estim Creat Clear Calc 12.86, Est GFR (MDRD) Af Amer 12 L, Est GFR (MDRD) Non-Af 10 L, BUN/Creatinine Ratio 16.7, Glucose 107 H, Calcium 7.3 L, Magnesium 1.9, Total Bilirubin 0.20, AST 13 L, ALT 27, Alkaline Phosphatase 35 L, Total Protein 5.9 L, Albumin 2.9 L, Globulin 3.0, Albumin/Globulin Ratio 1.0 11/22/19 19:35: Hep B Core Total Ab Pending 11/22/19 19:35: Hep Bs Antigen Non-Reactive, Hep Bs Antibody Non-Reactive 11/23/19 05:05: WBC 4.5, RBC 2.83 L, Hgb 8.6 L, Hct 26.1 L, MCV 92.2, MCH 30.4, MCHC 33.0, RDW Std Deviation 52.3 H, RDW Coeff of Brynn 15.4 H, Plt Count 97 L, MPV 11.3, Immature Gran % (Auto) 0.400, Neut % (Auto) 71.3 H, Lymph % (Auto) 14.8 L, [place] % (Auto) 12.4 H, Eos % (Auto) 1.1, Baso % (Auto) 0.0, Absolute Neuts (auto) 3.2, Absolute Lymphs (auto) 0.67 L, Nucleated RBC % 0, Platelet Estimate MOD DEC 11/23/19 05:05: Sodium 141, Potassium 3.5, Chloride 112 H, Carbon Dioxide 21.0, Anion Gap 8, BUN 79 H, Creatinine 5.00 H, Estim Creat Clear Calc 15.41, Est GFR (MDRD) Af Amer 15 L, Est GFR (MDRD) Non-Af 13 L, BUN/Creatinine Ratio 15.8, Glucose 85, Calcium 7.0 L, Phosphorus 4.4, Magnesium 1.7 11/23/19 05:05: Vitamin B12 Pending 11/23/19 05:05: Iron 71, TIBC 166 L, Iron Saturation 42.8 Current Medications Acetaminophen (Tylenol) 500 mg PO DAILY [facility] Acetaminophen (Tylenol) 650 mg PO Q6H PRN PRN PRN Reason: Pain Score 1-3/Temp > 100.7 F Last Admin: 11/23/19 05:22 Dose: 650 mg Documented by: Hydrocodone Bitart/Acetaminophen ([place] 5mg-325mg) 1 tablet PO Q6H PRN PRN PRN Reason: Pain Score 1-10/10 Al Hydroxide/Mg Hydroxide (Mylanta Ii) 30 ml PO Q6H PRN PRN PRN Reason: Gastric Burning Albuterol Sulfate (Ventolin Aerosols) 2.5 mg INHALATION Q2H PRN PRN PRN Reason: SOB/Wheezing Aspirin (Aspirin, Baby) 81 mg PO DAILY@0800 [facility] Carvedilol (Coreg) 25 mg PO BID [facility] Last Admin: 11/22/19 23:04 Dose: 25 mg Documented by: Cyanocobalamin (Vitamin B12) 500 mcg PO DAILY@0800 [facility] Guaifenesin (Robitussin) 20 ml PO Q4H PRN PRN PRN Reason: COUGH Heparin Sodium (Porcine) (Heparin Na) 5,000 unit SC Q8 [facility] Last Admin: 11/23/19 05:22 Dose: 5,000 unit Documented by: Heparin Sodium (Porcine) () 2,500 units IV UD PRN PRN Reason: Dialysis Cath Heparin Flush Last Admin: 11/22/19 22:10 Dose: 2,500 units Documented by: Hydralazine HCl (Apresoline Iv) 10 mg IV Q4H PRN PRN PRN Reason: SBP > 160 Last Admin: 11/23/19 05:31 Dose: 10 mg Documented by: Sodium Chloride () 250 mls @ 15 mls/hr IV .[id number] PRN PRN Reason: Saline Flush Sodium Chloride () 250 mls @ 15 mls/hr IV .[id number] PRN PRN Reason: Additional IVPB Infusion Nifedipine (Procardia Xl) 60 mg PO DAILY [facility] Nitroglycerin (Nitrostat) 0.4 mg SUBLINGUAL Q5M PRN PRN Reason: CARDIAC/CHEST PAIN Ondansetron HCl (Zofran) 4 mg IV Q8H PRN PRN PRN Reason: NAUSEA/VOMITING Oxycodone HCl (Oxyir) 5 mg PO Q4H PRN PRN PRN Reason: Pain Score 4-5/10 Oxycodone HCl (Oxyir) 10 mg PO Q4H PRN PRN PRN Reason: Pain Score 6-10/10 Pantoprazole Sodium (Protonix) 40 mg PO DAILY [facility] Prednisone () 20 mg PO DAILY@0800 [facility] Promethazine HCl (Phenergan) 25 mg IM Q6H PRN PRN PRN Reason: Breakthrough Nausea/Vomiting Senna/Docusate Sodium (Senokot-S, Mendy-Colace) 2 tablet PO BID PRN PRN PRN Reason: Constipation Sodium Chloride () 10 - 40 ml IV UD PRN PRN Reason: SALINE FLUSH Last Admin: 11/23/19 05:31 Dose: 10 ml Documented by: Sodium Chloride () 10 ml IV UD PRN PRN Reason: Dialysis Catheter Flush Discharge Diet: Renal Diet Discharge Activity: May Not Drive, May Not Shower Additional Dressing/Incision Instructions:: Please keep your catheter sites clean and dry. Dressing changes will be performed per the dialysis center Home Medications: Medications to take at Discharge Aspirin [Aspirin, Baby] 81 mg PO DAILY@0800 06/14/18 Acetaminophen [Tylenol Extra Strength] 500 mg PO DAILY 11/21/19 Carvedilol 25 mg PO BID 11/21/19 Cyanocobalamin [Vitamin B12] 500 mcg PO DAILY@0800 11/21/19 Nifedipine [Nifedipine ER] 60 mg PO DAILY 11/21/19 Pantoprazole Sodium [Protonix] 40 mg PO DAILY 11/21/19 Prednisone 20 mg PO DAILY 11/21/19 Primary Care Physician: Bekah Washington MD [Primary Care Provider] - Please follow up with your Primary Care Physician in: in 1 week Please Follow Up With: Arian Nuñez MD - [phone] When: Please plan to follow up in 7 days in the office. Please Follow Up With: Hanh Russo MD When: as scheduled Additional Instructions: You may resume your prednisone today. You may resume your aspirin tomorrow Disposition: Home Minutes spent on discharge:: 35 Patient Condition:: Stable Medical Necessity - Tobacco Use Smoking Status: Light Smoker (<10/day) Meaningful Use Info Meaningful Use Diagnoses (Choose all that apply): None applicable Code Visit OBSV E&M: 66063 Observation care discharge
[2019-11-23 11:11] LABS: Vitamin B12 > 2000 pg/mL (211-911)
--- NOTE | 2019-11-23 11:13 | CASEMGMT ---
Hep B antibody/antigen resulted [facility] Call to [facility] to notify, voices understanding. Pt has vein mapping scheduled tomorrow OP at 1300. Pt will be discharged today and per mehran Alegre to discharge pt today and they will get pt into dialysis on 11/25/19 at 1415 for the first OP visit. Pt/ updated on all, voice understanding. Pt/ voice no further questions/concerns/needs at this time. Pt to be discharged after dialysis complete. Mary FERNANDEZ CM
--- NOTE | 2019-11-23 11:26 | PHA.DC.MR ---
Pharmacy Service has performed discharge medication reconciliation for this patient. Home Medications Aspirin [Aspirin, Baby] 81 mg PO DAILY@0800 06/14/18 Acetaminophen [Tylenol Extra Strength] 500 mg PO DAILY 11/21/19 Carvedilol 25 mg PO BID 11/21/19 Cyanocobalamin [Vitamin B12] 500 mcg PO DAILY@0800 11/21/19 Nifedipine [Nifedipine ER] 60 mg PO DAILY 11/21/19 Pantoprazole Sodium [Protonix] 40 mg PO DAILY 11/21/19 Prednisone 20 mg PO DAILY 11/21/19 The patient's discharge medication list was reviewed for discrepancies and discrepancies were resolved.
--- NOTE | 2019-11-23 12:39 | CASEMGMT ---
Intro role of CM to patient and GOFF form explained re: Observation status for treatment of chest pain. Explained hospitalization will be paid per? insurance policy for Outpatient billing?and condition will continue to be evaluated for Inpt necessity. Also let pt know that [facility] sends paper in the billing packet with their phone number if questions arise. Discussed Pharmacy section of GOFF form and self administered medication guideline.? Pt verbalizes understanding and does not have further questions. Form signed and placed in chart, copy to pt. IRAJ FERNANDEZ BSN CM
[2019-11-23] MEDS: Aspirin 81 MG TAB.CHEW PO (13:21)
[2019-11-23] MEDS: Cyanocobalamin 500 MCG Tablet PO (13:21)
[2019-11-23] MEDS: NIFEdipine 60 MG Tablet PO ×2 (13:21)
[2019-11-23] MEDS: Carvedilol 25 MG Tablet PO (13:21)
[2019-11-23] MEDS: predniSONE 20 MG Tablet PO (13:21)
[2019-11-23] MEDS: Pantoprazole Sodium 40 MG Tablet PO (13:21)
[2019-11-23] MEDS: Acetaminophen 500 MG Tablet PO (13:22)
--- NOTE | 2019-11-23 13:23 | DIALYSIS ---
HD x 3 hours complete. Tolerated tx well. UF of 2000ml. Ran on 4k bath. Used left chest wall catheter. Catheter closed with heparin per fill volume. Report was given to REBECCA Zuñiga.
[2019-11-24 13:39] LABS: Hepatitis B Core Ab Total Negative (Negative)
== END 2019-11-23 11:08 | disposition home or self-care (01) ==
LOC: SDC 12:32 → PCU 12:32
PROVIDERS: Internal Medicine; Admitting Provider Surgery; Family Provider Internal Medicine; PCP Internal Medicine; Referring Provider Surgery; Visit Provider Internal Medicine
PROC: (CPT 36558; principal; 2019-11-22 10:00)
DX: Z49.01 Encounter for fitting and adjustment of extracorporeal dialysis catheter (principal); N18.5 Chronic kidney disease, stage 5; F17.200 Nicotine dependence, unspecified, uncomplicated; K21.9 Gastro-esophageal reflux disease without esophagitis; I10 Essential (primary) hypertension; Q23.1 Congenital insufficiency of aortic valve; G25.81 Restless legs syndrome; E66.9 Obesity, unspecified; M05.20 Rheumatoid vasculitis with rheumatoid arthritis of unspecified site; Z86.718 Personal history of other venous thrombosis and embolism; Z79.899 Other long term (current) drug therapy; Z79.82 Long term (current) use of aspirin; Z79.52 Long term (current) use of systemic steroids; Z68.41 Body mass index [BMI] 40.0-44.9, adult; Z71.3 Dietary counseling and surveillance
CPT/HCPCS: 00532; 36558; 36415; 71045; 76000; 80048; 80053; 82607; 83540; 83550; 83735; 84100; 85025; 85027; 86704; 86706; 87340; 90937; 93005; 93306; 96372; 96374; 96375; 99218; 99251; J7030; Q9957; A4216; G0257; G0378; G0379; G0463

== ENCOUNTER 2019-11-24 11:56 | Emergency (ER) | payer MEDICARE, SELFPAY ==
[2019-11-22 12:40] VITALS: BMI 40.3
[2019-11-24 11:57] VITALS: BP 174/88; PULSE 78; RESP 17; TEMP 36.8; O2SAT 98; BMI 38.7
--- NOTE | 2019-11-24 12:20 | ED.VISSUMM ---
- ER Visit Summary Date of Service: 11/24/19 Chief Complaint: Bleeding from his left subclavian tunneled dialysis catheter. History of Present Illness: The patient is a 64 M recently diagnosed with renal failure. Had a left subclavian tunneled dialysis catheter placed on Thursday. He was dialyzed on ago Thursday and Thursday. And today's had oozing from the site. He was recently on Lovenox shots when he was hospitalized and he is on aspirin. He is not on Coumadin. He denies any other complaints. Physical Examination: Older male no acute distress vital signs are stable afebrile. H EENT exam unremarkable. Neck nontender. Lungs clear to auscultation bilaterally. Heart regular rhythm no murmur. Abdomen soft nontender normal bowel sounds no peritoneal signs. His left subclavian Vas-Cath there is dark blood around the dressing. There is minimal oozing. There is no pulsatile bleeding. There is no bright red blood. He is moving all 4 extremities. He has significant edema both lower extremities which is chronic. Neurologically is awake and alert with no focal motor deficits. Test Results: None Emergency Department Course and Treatment: Clean no dressing. Apply let to the area. Observe till the bleeding resolves. Treatment Plan: Follow-up as needed. Disposition: Discharge Impression: Bleeding from left subclavian vein. Vas-Cath dialysis site This note was generated with Animated Speech dictation software. It may contain incorrect words, spelling, and punctuation that were not noted in review of the chart prior to signing ED Disposition - Plan for ED Patient: Referrals: Bekah Washington MD [Primary Care Provider] -
--- NOTE | 2019-11-24 12:23 | ED.DEP ---
ED Disposition - Plan for ED Patient: Disposition: Home or Assisted Living Referrals: Bekah Washington MD [Primary Care Provider] - As Needed Additional Instructions: Follow-up with your doctors as needed. If the bleeding reoccurs hold direct pressure over the dressing and ice. Eventually typically the bleeding will resolve.
[2019-11-24] MEDS: Lidocaine/Epi/Tetracaine 50 ML 1 APPLIC TOPICAL (12:28)
== END 2019-11-24 14:26 | disposition home or self-care (01) ==
LOC: ED 12:32
PROVIDERS: Emergency Provider Emergency Medicine; PCP Internal Medicine; Referring Provider Internal Medicine
DX: T82.838A Hemorrhage due to vascular prosthetic devices, implants and grafts, initial encounter (principal); I12.0 Hypertensive chronic kidney disease with stage 5 chronic kidney disease or end stage renal disease; N18.6 End stage renal disease; Z99.2 Dependence on renal dialysis; Z79.82 Long term (current) use of aspirin; Z79.01 Long term (current) use of anticoagulants; Z79.52 Long term (current) use of systemic steroids; Z79.899 Other long term (current) drug therapy; Z01.818 Encounter for other preprocedural examination; N17.9 Acute kidney failure, unspecified
CPT/HCPCS: 93970; 99283

== ENCOUNTER → 2019-11-24 12:52 | Outpatient (CLI) | payer MEDICARE, SELFPAY ==
[2019-11-21 14:29] VITALS: BMI 37.6
[2019-11-24 11:57] VITALS: BMI 38.7
--- NOTE | 2019-11-24 12:53 | VDUE_ITS ---
Reason For Study: Pre op testing Right Arm Left Arm Right Cephalic Vein at the wrist measures Left Cephalic Vein at the wrist measures 0.26 x 0.29 cm. 0.16 x 0.19 cm. Right Cephalic Vein in the forearm measures Left Cephalic Vein in the forearm measures 0.43 x 0.44 cm. 0.34 x 0.37 cm. Right Cephalic Vein below antecub measures Left Cephalic Vein below antecub measures 0.38 x 0.44 cm. 0.32 x 0.36 cm. Right Cephalic Vein above antecub measures Left Cephalic Vein above antecub measures 0.41 x 0.43 cm. 0.44 x 0.43 cm. Right Cephalic Vein mid bicep measures 0.37 Left Cephalic Vein at mid bicep measures x 0.40 cm. 0.30 x 0.31 cm. Right Cephalic Vein at the shoulder measures Left Cephalic Vein at the shoulder measures 0.35 x 0.37 cm. 0.35 x 0.40 cm. Right Basilic Vein at the origin measures Basilic vein at origin measures 0.74 x 0.79 0.88 x 0.91 cm. cm. Right Basilic Vein mid bicep measures 0.53 x Basilic vein at bicep measures 0.67 x 0.71 0.54 cm. cm. Right Basilic Vein above antecub measures Basilic vein above antecub measures 0.56 x 0.64 x 0.65 cm. 0.56 cm. Right Brachial artery measures 0.51 x 0.50 Left Brachial artery measures 0.55 x 0.57 cm cm with a velocity of 64 cm/sec. with a velocity of 86.4 cm/sec. Right Radial artery measures 0.29 x 0.30 cm Left Radial artery measures 0.34 x 0.34 cm with a. with a velocity of 62 cm/sec. Interpretation Summary Patent and compressible bilateral upper extremity cephalic and basilic veins with dimensions as noted Normal diameter and flow bilateral brachial and radial arteries Ordering Physician: Love Leon Referring Physician: Bekah Washington Performed By: Ashlie Mast RVT ?
== END ==
PROVIDERS: Family Provider Internal Medicine; PCP Internal Medicine; Referring Provider Surgery; Visit Provider Surgery
DX: Z01.818 Encounter for other preprocedural examination (principal); N17.9 Acute kidney failure, unspecified; N18.4 Chronic kidney disease, stage 4 (severe)
CPT/HCPCS: 93970

== ENCOUNTER 2019-12-02 21:33 | Inpatient (IN) | payer MEDICARE, SELFPAY ==
[2019-12-02 21:34] VITALS: BP 155/87; PULSE 74; RESP 18; TEMP 37.2; O2SAT 97; BMI 35.9
[2019-12-02 22:58] LABS: Absolute Lymphocyte Count 0.62 X10^3/uL (0.83-4.51); Absolute Neutrophil Count 3.3 X10^3/uL (2.0-7.7); Basophil# 0.02 X10^3/uL; Basophil% 0.4 % (0-1); Eosinophil# 0.11 X10^3/uL; Eosinophils% 2.2 % (0-5); Hematocrit 28.3 % (40-54); Hemoglobin 9.1 g/dL (13.0-16.5); Lymphocyte # 0.62 X10^3/ul (4.0); Lymphocyte % 12.6 % (19-41); Mean Corp Hgb Conc 32.2 g/dL (32-36); Mean Corpuscular Hgb 30.1 pg (27.0-32.0); Mean Corpuscular Volume 93.7 fL (80-94); Mean Platelet Vol. 10.7 fl (6.2-12.0); Monocyte# 0.81 X10^3/uL; Monocyte% 16.5 % (0-10); NRBC Flagged by Analyzer 0 % (0-5); Neutrophil # 3.34 X10^3/uL (2.7-7.7); Neutrophil % 67.9 % (47-70); Platelet Count 146 K/mm3 (150-450); RBC Distribution Width CV 14.6 % (11.6-14.6); RBC Distribution Width SD 49.9 fl (35.1-43.9); Red Blood Count 3.02 M/mm3 (4.6-6.2); White Blood Count 4.9 K/mm3 (4.4-11.0)
--- NOTE | 2019-12-02 23:15 | HP.PCM_ITS ---
Problem List (1) Acute GI bleeding Status: Acute (2) Chronic renal insufficiency, stage V Status: Chronic (3) Anemia Status: Acute (4) HTN (hypertension) Status: Chronic Qualifiers: Hypertension type: essential hypertension Qualified Code(s): I10 - Essential (primary) hypertension (5) Obesity (BMI 30-39.9) Status: Chronic (6) Tobacco use Status: Chronic (7) Rheumatoid arthritis Status: Chronic Qualifiers: Rheumatoid arthritis location: unspecified site Rheumatoid factor presence: unspecified presence Qualified Code(s): M06.9 - Rheumatoid arthritis, unspecified History of Present Illness Date of Admission: 12/02/19 Chief Complaint: Hematochezia The patient is a 64 year old M with a significant history of end-stage renal disease; rheumatoid arthritis; subclavian aneurysm; and who was recently started on dialysis presenting with hematochezia. He had blood in his stool. He denies any nausea vomiting or abdominal pain. He denies any previous colonoscopy. Emergent department doctor reported maroon stool on rectal examination. Patient reports taking ibuprofen every day because of pain from rheumatoid arthritis. 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 Subclavian aneurysm I72.8 Allergies No Known Allergies Allergy (Verified 12/02/19 21:34) Home Medications: Ambulatory Orders Medication Instructions Recorded Aspirin [Aspirin, Baby] 81 mg PO DAILY@0800 06/14/18 Acetaminophen [Tylenol Extra 500 mg PO DAILY 11/21/19 Strength] Carvedilol 25 mg PO BID 11/21/19 Cyanocobalamin [Vitamin B12] 500 mcg PO DAILY@0800 11/21/19 Nifedipine [Nifedipine ER] 60 mg PO DAILY 11/21/19 Pantoprazole Sodium [Protonix] 40 mg PO DAILY 11/21/19 Surgical History: Surgical History (Last Reviewed 12/03/19 @ 01:10 by Sean Smith MD) History of bicuspid aortic valve Z87.74 History of umbilical hernia Z87.19 S/P knee surgery Z98.890 s/p subclavian graft Surgical History: - - 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 Psychiatric History: No pertinent psych hx Lives: Spouse/ Significant Other Smoking Status: Current every day smoker Alcohol: None - *Family History Maternal History Items: - - Patient notes a maternal family history of heart disease/[place], age 8888 year old. Paternal History Items: Heart Disease, - Review of Systems Constitutional: Denies: Chills, Fever, Weight Change HEENT: Denies: Head Aches, Sinus Congestion, Sinus Drainage Cardiovascular: Reports: Edema. Denies: Chest Pain, Palpitations Respiratory: Denies: Cough, Shortness of breath at rest, Sputum production Gastrointestinal: Reports: Hematochezia. Denies: Abdominal Pain, Nausea, Vomiting Genitourinary: Denies: Dysuria Musculoskeletal: Denies: Joint Pain, Joint Tenderness Skin: Denies: Rash, Wounds Neurological: Denies: Numbness, Tingling, Focal weakness Psychiatric: Denies: Anxiety, Depression, Homicidal Ideations, Suicidal Ideations Hematologic/ Lymphatic: Denies: Easy Bruising, Easy Bleeding VTE Information - Inpt Only VTE Present on Admission: No VTE Mechan Device Prophylaxis: SCD's VTE Pharm Prophylaxis ordered?: No Patient Problems: Active and Suspected Problems (Last Reviewed 12/03/19 @ 01:09 by Sean Smith MD) Anemia (Acute) Acute GI bleeding (Acute) - Physical Exam Vitals/I&O's: Vital Signs Temp Pulse Resp BP Pulse Ox 98.9 F 74 18 155/87 H 97 12/02/19 21:34 12/02/19 21:34 12/02/19 21:34 12/02/19 21:34 12/02/19 21:34 Oxygen Delivery Method Room Air Weight: 113.398 kg Body Mass Index (BMI) 35.9 General: Alert, Oriented x3, Cooperative HEENT: Atraumatic, PERRLA, EOMI, Normocephalic Neck: Supple, No JVD, Negative Carotid Bruits Lungs: Clear to auscultation, Normal air movement Cardiovascular: Regular rate, Normal S1, Normal S2, Murmur Abdomen: Bowel Sounds Present, Soft, Non Tender, - - Rectal exams was not done. Emergency department doctor reported maroon stools on rectal exams. Extremities: Capillary Refill Less than 3 Seconds, Edema - Bilateral leg edema Skin: No rashes, No breakdown Musculoskeletal: No Tenderness to Palpation of Joints or Extremities Neurological: Cranial nerves II-XII grossly intact Psych/Mental Status: Normal Affect, Appropriate Laboratory Results 12/02/19 22:40: WBC 4.9, RBC 3.02 L, Hgb 9.1 L, Hct 28.3 L, MCV 93.7, MCH 30.1, MCHC 32.2, RDW Std Deviation 49.9 H, RDW Coeff of Brynn 14.6, Plt Count 146 L, MPV 10.7, Immature Gran % (Auto) 0.400, Neut % (Auto) 67.9, Lymph % (Auto) 12.6 L, Bell % (Auto) 16.5 H, Eos % (Auto) 2.2, Baso % (Auto) 0.4, Absolute Neuts (auto) 3.3, Absolute Lymphs (auto) 0.62 L, Nucleated RBC % 0 12/02/19 22:40: PT Pending, INR Pending, APTT Pending 12/02/19 22:40: Sodium Pending, Potassium Pending, Chloride Pending, Carbon Dioxide Pending, Anion Gap Pending, BUN Pending, Creatinine Pending, Est GFR (M DRD) Af Amer Pending, Est GFR (MDRD) Non-Af Pending, BUN/Creatinine Ratio Pending, Glucose Pending, Calcium Pending 12/02/19 22:40: Blood Type Pending, Antibody Screen Pending Assessment/Plan All Active Problems (Last Reviewed 12/03/19 @ 01:09 by Sean Smith MD) Anemia (Acute) Acute GI bleeding (Acute) The patient is a 64 year old M with a significant history of end-stage renal disease; rheumatoid arthritis; subclavian aneurysm; and who was recently started on dialysis presenting with hematochezia. Acute GI bleed Hematochezia at home and maroon stools per rectal exams of emergency department doctor. Follow stool for guaiac ordered in the emergency department. Hemoglobin on presentation was 9.1 which is 1 g drop from 11/22/2019. Of note patient received iron with dialysis on the same week of presentation. Trend H&H. Hold aspirin and all p.o. medications from home. At home patient is on Protonix p.o. once a day. Escalate to Protonix 40 mg IV every 12 hours. Keep patient n.p.o. 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 General surgery consult. End Stage renal disease on dialysis Patient get dialysis Thursday and Thursday. So far he has had about 5 sessions of dialysis. Nephrology consult. Hypertension Presentation blood pressure was elevated. Home blood pressure medication held secondary to n.p.o. status in the setting of GI bleed. PRN labetalol ordered. Hypokalemia Potassium ordered with a sip of water. Trend BMP. Check magnesium. Lymphedema Continue compression dressing and SCDs. Tobacco abuse Patient smokes about 2 cigarettes/day. Counseled. DVT prophylaxis SCD ordered no chemoprophylaxis secondary to GI bleed. Code Visit OBSV E&M: 93165 Initial observation care L3
[2019-12-02 23:18] LABS: Anion Gap 7 (5-15); BUN 25 mg/dL (7-18); BUN/Creat Ratio 6.7 RATIO (10-20); Calcium,Total 7.5 mg/dL (8.5-10.1); Chloride 101 mmol/L (98-107); Creatinine, Serum 3.75 mg/dL (0.70-1.30); EST Glomerular Filtration Rate 17 mL/min (>60); Est Glom Filt Rate - Afr Amer 21 mL/min (>60); Estimated Creatinine Clearance 20.55 ml/min; Glucose 115 mg/dL (74-106); Partial Thromboplast Time 28.6 Seconds (24.1-36.2); Potassium 3.1 mmol/L (3.5-5.1); Prothrombin Time (Protime)PT. 13.3 SECONDS (11.7-14.9); Sodium Level 138 mmol/L (136-145)
--- NOTE | 2019-12-02 23:28 | ED.VIS.GEN ---
History of Present Illness Chief Complaint: GI Bleed Informant: Patient Onset: Today Narrative: Presents for concerns of bright red blood per rectum with bowel movement this evening. Denies abdominal pain. Denies lightheaded symptoms. Patient on baby aspirin. In addition he reports recently started dialysis with 5 total treatments, days are Thursday and Saturdays. He gets heparin through his Vas-Cath prior to his dialysis. Vas-Cath placed by Dr. Nuñez 11 days ago. He states 20 years ago had diverticulitis, states possibly had a sigmoidoscopy on follow-up however never had a colonoscopy. No current fistula however this is planned in the near future. Reports yesterday with his dialysis received an iron infusion due to anemia. He is followed by Dr. Gonzalez. Prior similar symptoms: No Past Medical History - Allergies and Home Meds Allergies/Adverse Reactions: Allergies No Known Allergies Allergy (Verified 12/02/19 21:34) Primary Care Physician: Bekah Washington MD [Primary Care Provider] - Past Medical History: - - Anemia, rheumatoid arthritis, end-stage renal disease on dialysis, hypertension Surgical History: - - 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 Smoking Status: Current every day smoker - Family History Maternal Family History: Reports: - - Patient notes a maternal family history of heart disease/[place], age 8888 year old. Paternal Family History: Reports: Heart Disease, - - Father w/ Review of Systems General: Denies: Chills, Fever, Sweats Eyes: Denies: Visual changes - bilaterally, Diplopia ENT: Denies: Rhinorrhea, Sore throat Cardiovascular: Denies: Chest pain, Palpitations Respiratory: Denies: Dyspnea, Cough, Dyspnea on exertion Gastrointestinal: Reports: Hematochezia. Denies: Abdominal pain, Nausea, Vomiting, Diarrhea, Melena Genitourinary: Denies: Dysuria, Hematuria, Frequency Musculoskeletal: Denies: Back pain, Extremity Pain Skin: Denies: Rash, Wounds Neurological: Denies: Headache, Weakness, Numbness Physical Exam Vital Signs/Narrative: Vital Signs Temp Pulse Resp BP Pulse Ox 12/02/19 21:34 98.9 F 74 18 155/87 H 97 Inital Vital Signs reviewed: Yes General: Well nourished, Well developed, No Acute Distress Head: Normocephalic, Atraumatic Eyes: Perrl, EOMI, - - Mild pallor of conjunctiva. ENT: Moist mucous membranes, No rhinorrhea Neck: Supple, Nontender Cardiovascular: Regular rate, Regular rhythm, No murmurs Respiratory: No distress, CTA bilaterally, Chest nontender, - - Left chest wall Vas-Cath, clean, dry, intact. Abdomen: Soft, Nontender, Nondistended, Normal bowel sounds Rectal: - - No hemorrhoids, digital rectal exam with maroon color stool, guaiac sent and pending. Back: Nontender, Normal Inspection Extremities: Nontender, No edema Skin: Normal color, No rash Neurological: Alert, Oriented x3, Cranial nerves II-XII grossly intact, Normal Strength, Normal Sensation Psychological: Normal affect, Normal Mood Diagnostic/Tx/Re-eval Abnormal Lab Results 12/02/19 12/02/19 12/02/19 22:40 22:40 22:40 WBC 4.9 RBC 3.02 L Hgb 9.1 L Hct 28.3 L MCV 93.7 MCH 30.1 MCHC 32.2 RDW Std Deviation 49.9 H RDW Coeff of Brynn 14.6 Plt Count 146 L MPV 10.7 Immature Gran % (Auto) 0.400 Neut % (Auto) 67.9 Lymph % (Auto) 12.6 L Walsh % (Auto) 16.5 H Eos % (Auto) 2.2 Baso % (Auto) 0.4 Absolute Neuts (auto) 3.3 Absolute Lymphs (auto) 0.62 L Nucleated RBC % 0 PT 13.3 INR 1.0 APTT 28.6 Sodium 138 Potassium 3.1 L Chloride 101 Carbon Dioxide 30.0 Anion Gap 7 BUN 25 H Creatinine 3.75 H Estim Creat Clear Calc 20.55 Est GFR (MDRD) Af Amer 21 L Est GFR (MDRD) Non-Af 17 L BUN/Creatinine Ratio 6.7 L Glucose 115 H Calcium 7.5 L - Medical Decision Making Patient vital signs stable, denies lightheaded symptoms. No abdominal pain on exam. Rectal exam with maroon color stools. Hemoglobin returned at 9.1 recently was 10 was trended down to 8.6 on the 14th. Stable for him at this point. Patient on aspirin along with receiving heparin with his dialysis I do feel benefit from observations. Spoke with hospitalist for admission. Surgeon Dr. Dixon also updated on patient's admission and will follow. ED Disposition - Plan for ED Patient: Disposition: Acute Care Hospital [facility] Diagnosis: GI bleed, Anemia, ESRD (end stage renal disease) on dialysis Referrals: Bekah Washington MD [Primary Care Provider] -
[2019-12-02 23:38] VITALS: BP 158/87; PULSE 74; RESP 16; O2SAT 96
[2019-12-02 23:59] VITALS: BMI 35.0
[2019-12-03] VITALS (17 sets, daily range): BP systolic 142–171; BP diastolic 75–107; PULSE 65–82; RESP 15–20; TEMP 36.6–37.2; O2SAT 93–97
[2019-12-03 01:30] LABS: Magnesium 1.8 mg/dL (1.6-2.6)
[2019-12-03] MEDS: 0.9% Saline Lock 10 ML Syringe IV ×4 (01:33→22:25)
[2019-12-03 04:24] LABS: Hematocrit 26.2 % (40-54); Hemoglobin 8.7 g/dL (13.0-16.5)
[2019-12-03 04:45] LABS: Anion Gap 6 (5-15); BUN 26 mg/dL (7-18); BUN/Creat Ratio 6.9 RATIO (10-20); Chloride 102 mmol/L (98-107); Creatinine, Serum 3.78 mg/dL (0.70-1.30); EST Glomerular Filtration Rate 17 mL/min (>60); Est Glom Filt Rate - Afr Amer 21 mL/min (>60); Estimated Creatinine Clearance 20.39 ml/min; Glucose 92 mg/dL (74-106); Potassium 3.1 mmol/L (3.5-5.1); Sodium Level 138 mmol/L (136-145)
--- NOTE | 2019-12-03 07:25 | PCM.CONS.GEN ---
Reason for Consult Date of Consultation: 12/03/19 History of Present Illness: The patient is a 64 year old M admitted for blood per rectum, pt states he had a large amount of brbpr yesterday; denies known hemorrhoids or previous colonoscopy or FH of colon cancer or previous episode of blood per rectum. Pt Hb was 9.1 on admit, now 8.7- VSS. Pt recently started dialysis via left chest catheter (goes //thu). Pt is on asa 81 mg 2/2 right subclavian graft; otherwise no other blood thinner except the heparin he gets with dialysis. Denies any n/v/abd pain/GERD. Pt is on PPI because he was also taking steriods which he completed this week. 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 Subclavian aneurysm I72.8 Allergies No Known Allergies Allergy (Verified 12/02/19 21:34) Home Medications: Ambulatory Orders Medication Instructions Recorded Aspirin [Aspirin, Baby] 81 mg PO DAILY@0800 06/14/18 Acetaminophen [Tylenol Extra 500 mg PO DAILY 11/21/19 Strength] Carvedilol 25 mg PO BID 11/21/19 Cyanocobalamin [Vitamin B12] 500 mcg PO DAILY@0800 11/21/19 Nifedipine [Nifedipine ER] 60 mg PO DAILY 11/21/19 Pantoprazole Sodium [Protonix] 40 mg PO DAILY 11/21/19 Surgical History: Surgical History (Last Reviewed 12/03/19 @ 01:10 by Sean Smith MD) History of bicuspid aortic valve Z87.74 History of umbilical hernia Z87.19 S/P knee surgery Z98.890 s/p subclavian graft Surgical History: - - 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 Psychiatric History: No pertinent psych hx Lives: Spouse/ Significant Other Smoking Status: Current every day smoker Tobacco Use: Cigarettes Alcohol: None - *Family History Maternal History Items: - - Patient notes a maternal family history of heart disease/[place], age 8888 year old. Paternal History Items: Heart Disease, - Review of Systems Constitutional: Denies: Anorexia HEENT: Denies: Difficulty Swallowing Cardiovascular: Denies: Chest Pain Respiratory: Denies: Shortness of Breath Gastrointestinal: Reports: Hematochezia. Denies: Abdominal Pain, Nausea, Melena, Vomiting Genitourinary: Denies: Dysuria Skin: Denies: Rash Psychiatric: Denies: Anxiety Hematologic/ Lymphatic: Denies: Easy Bleeding Patient Problems: Active and Suspected Problems (Last Reviewed 12/03/19 @ 01:09 by Sean Smith MD) Anemia (Acute) Acute GI bleeding (Acute) - Physical Exam Vitals/I&O's: Vital Signs Temp Pulse Resp BP Pulse Ox 98.1 F 69 16 161/91 H 95 12/03/19 04:25 12/03/19 04:51 12/03/19 04:25 12/03/19 04:51 12/03/19 04:25 Oxygen Delivery Method Room Air Weight: 244 lb 4.355 oz Body Mass Index (BMI) 35.0 Intake and Output for Last 24 Hours 12/01/19 12/02/19 12/03/19 23:59 23:59 23:59 Intake Total 110 / 110 Balance 110 / 110 General: Alert, Oriented x3, Cooperative, No apparent distress HEENT: Atraumatic Lungs: Normal air movement Cardiovascular: Regular rate Abdomen: Soft, Non Tender, Non-Distended, - - REN: small internal hemorrhoids, small amount of clotted blood on my finger, no masses appreciated Extremities: Edema Skin: - - Left chest- tunneled dialysis catheter in place. Neurological: Cranial nerves II-XII grossly intact Psych/Mental Status: Normal Affect Microbiology Past 72 Hours 12/02/19 22:35 Stool Stool Occult Blood (LAMONTE) - Final Laboratory Results 12/02/19 22:40: WBC 4.9, RBC 3.02 L, Hgb 9.1 L, Hct 28.3 L, MCV 93.7, MCH 30.1, MCHC 32.2, RDW Std Deviation 49.9 H, RDW Coeff of Brynn 14.6, Plt Count 146 L, MPV 10.7, Immature Gran % (Auto) 0.400, Neut % (Auto) 67.9, Lymph % (Auto) 12.6 L, [place] % (Auto) 16.5 H, Eos % (Auto) 2.2, Baso % (Auto) 0.4, Absolute Neuts (auto) 3.3, Absolute Lymphs (auto) 0.62 L, Nucleated RBC % 0 12/02/19 22:40: PT 13.3, INR 1.0, APTT 28.6 12/02/19 22:40: Sodium 138, Potassium 3.1 L, Chloride 101, Carbon Dioxide 30.0, Anion Gap 7, BUN 25 H, Creatinine 3.75 H, Estim Creat Clear Calc 20.55, Est GFR (MDRD) Af Amer 21 L, Est GFR (MDRD) Non-Af 17 L, BUN/Creatinine Ratio 6.7 L, Glucose 115 H, Calcium 7.5 L 12/02/19 22:40: Blood Type Cancelled, Antibody Screen Cancelled 12/02/19 22:40: Magnesium 1.8 12/03/19 00:20: Blood Type A POSITIVE, Antibody Screen NEGATIVE 12/03/19 04:15: Sodium 138, Potassium 3.1 L, Chloride 102, Carbon Dioxide 30.0, Anion Gap 6, BUN 26 H, Creatinine 3.78 H, Estim Creat Clear Calc 20.39, Est GFR (MDRD) Af Amer 21 L, Est GFR (MDRD) Non-Af 17 L, BUN/Creatinine Ratio 6.9 L, Glucose 92, Calcium 7.0 L 12/03/19 04:15: Hgb 8.7 L, Hct 26.2 L Current Medications Acetaminophen (Tylenol) 650 mg PO Q6H PRN PRN PRN Reason: Pain Score 1-10/Temp > 100.7 F Glucagon () 1 mg IM .X1 PRN PRN Reason: Hypoglycemia Pantoprazole Sodium 40 mg/ (Sodium Chloride) 110 mls @ 330 mls/hr IV Q12 DEBORAH Last Infusion: 12/03/19 01:53 Dose: Infused Documented by: Dextrose (Dextrose 10%-Water) 250 mls @ 999 mls/hr IV .Q16M PRN; Protocol PRN Reason: HYPOGLYCEMIA Sodium Chloride () 250 mls @ 15 mls/hr IV .[id number] PRN PRN Reason: Saline Flush Sodium Chloride () 250 mls @ 15 mls/hr IV .[id number] PRN PRN Reason: Additional IVPB Infusion Labetalol HCl (Trandate) 10 mg IV Q4H PRN PRN PRN Reason: SBP > 160 Last Admin: 12/03/19 04:33 Dose: 10 mg Documented by: Ondansetron HCl (Zofran) 4 mg IV Q8H PRN PRN PRN Reason: NAUSEA/VOMITING Sodium Chloride () 10 - 40 ml IV UD PRN PRN Reason: SALINE FLUSH Last Admin: 12/03/19 05:44 Dose: 10 ml Documented by: Assessment/Plan All Active Problems (Last Reviewed 12/03/19 @ 01:09 by Sean Smith MD) Anemia (Acute) Acute GI bleeding (Acute) 64 y/o M with blood per rectum, anemia 1. on exam pt does have internal hemorrhoids- grade I- his Hb is fairly stable at 8.7 from 9.1, will continue to monitor. If pt remains stable colonoscopy maybe done as an outpt, pt is on Asa 81mg due to right Subclavian graft placement- ok to continue. Ok for a renal diet. I have discussed the above with the patient. I have offered the patient colonoscopy for evaluation. I have explained the risks/benefits of the procedure and described the procedure. I have discussed the risks with the patient, including but not limited to: infection, bleeding, perforation of the GI tract requiring emergency surgery, inability to complete the procedure, injury to any internal organs, complications of anesthesia, etc. - the patient understands and agrees to proceed. I have answered all the patient's questions to the patient's satisfaction and the patient has no further questions. If pt remains stable he can contact our office for golytely prep and scheduling of colonoscopy. Multi Select Codes - Visit Charges Visit Charges: 33219 Init Hosp L2
--- NOTE | 2019-12-03 09:08 | PN_ITS ---
Patient Problems: Active and Suspected Problems (Last Reviewed 12/03/19 @ 01:09 by Sean Smith MD) Anemia (Acute) Acute GI bleeding (Acute) Reason for Visit: GI bleed Subjective: No further bleeding. Noted blood on toilet paper and in the toilet. Did not recall any clot (but states was not looking them either). No abdominal pain. No prior episodes. Vitals/I&O's: Vital Signs Temp Pulse Resp BP Pulse Ox 36.7 C 69 16 161/91 H 93 12/03/19 04:25 12/03/19 07:22 12/03/19 04:25 12/03/19 04:51 12/03/19 07:45 Oxygen Delivery Method Room Air Weight: 110.8 kg Body Mass Index (BMI) 35.0 Intake and Output for Last 24 Hours 12/01/19 12/02/19 12/03/19 23:59 23:59 23:59 Intake Total 110 / 110 Balance 110 / 110 General: Alert, No apparent distress HEENT: Atraumatic, Normocephalic Oral: Moist Mucosa, No Gingival or Mucosal Lesions/ Ulcerations Neck: No Nodes, Trachea Midline Lungs: Clear to auscultation, Normal air movement, No rhonchi, No wheeze, No rales Cardiovascular: Regular rate, Regular Rhythm, Normal S1, Normal S2, No murmurs Abdomen: Bowel Sounds Present, Soft, Non Tender, Non-Distended, No Hepato- splenomegaly Extremities: No Calf Tenderness, Edema Skin: No rashes, No breakdown Musculoskeletal: No Tenderness to Palpation of Joints or Extremities, No Muscle Wasting Psych/Mental Status: Normal Affect, Appropriate Microbiology Past 72 Hours 12/02/19 22:35 Stool Stool Occult Blood (LAMONTE) - Final Laboratory Results 12/02/19 22:40: WBC 4.9, RBC 3.02 L, Hgb 9.1 L, Hct 28.3 L, MCV 93.7, MCH 30.1, MCHC 32.2, RDW Std Deviation 49.9 H, RDW Coeff of Brynn 14.6, Plt Count 146 L, MPV 10.7, Immature Gran % (Auto) 0.400, Neut % (Auto) 67.9, Lymph % (Auto) 12.6 L, [place] % (Auto) 16.5 H, Eos % (Auto) 2.2, Baso % (Auto) 0.4, Absolute Neuts (auto) 3.3, Absolute Lymphs (auto) 0.62 L, Nucleated RBC % 0 12/02/19 22:40: PT 13.3, INR 1.0, APTT 28.6 12/02/19 22:40: Sodium 138, Potassium 3.1 L, Chloride 101, Carbon Dioxide 30.0, Anion Gap 7, BUN 25 H, Creatinine 3.75 H, Estim Creat Clear Calc 20.55, Est GFR (MDRD) Af Amer 21 L, Est GFR (MDRD) Non-Af 17 L, BUN/Creatinine Ratio 6.7 L, Glucose 115 H, Calcium 7.5 L 12/02/19 22:40: Blood Type Cancelled, Antibody Screen Cancelled 12/02/19 22:40: Magnesium 1.8 12/03/19 00:20: Blood Type A POSITIVE, Antibody Screen NEGATIVE 12/03/19 04:15: Sodium 138, Potassium 3.1 L, Chloride 102, Carbon Dioxide 30.0, Anion Gap 6, BUN 26 H, Creatinine 3.78 H, Estim Creat Clear Calc 20.39, Est GFR (MDRD) Af Amer 21 L, Est GFR (MDRD) Non-Af 17 L, BUN/Creatinine Ratio 6.9 L, Glucose 92, Calcium 7.0 L 12/03/19 04:15: Hgb 8.7 L, Hct 26.2 L Current Medications Acetaminophen (Tylenol) 650 mg PO Q6H PRN PRN PRN Reason: Pain Score 1-10/Temp > 100.7 F Glucagon () 1 mg IM .X1 PRN PRN Reason: Hypoglycemia Pantoprazole Sodium 40 mg/ (Sodium Chloride) 110 mls @ 330 mls/hr IV Q12 DEBORAH Last Infusion: 12/03/19 01:53 Dose: Infused Documented by: Dextrose (Dextrose 10%-Water) 250 mls @ 999 mls/hr IV .Q16M PRN; Protocol PRN Reason: HYPOGLYCEMIA Sodium Chloride () 250 mls @ 15 mls/hr IV .[id number] PRN PRN Reason: Saline Flush Sodium Chloride () 250 mls @ 15 mls/hr IV .[id number] PRN PRN Reason: Additional IVPB Infusion Labetalol HCl (Trandate) 10 mg IV Q4H PRN PRN PRN Reason: SBP > 160 Last Admin: 12/03/19 04:33 Dose: 10 mg Documented by: Ondansetron HCl (Zofran) 4 mg IV Q8H PRN PRN PRN Reason: NAUSEA/VOMITING Sodium Chloride () 10 - 40 ml IV UD PRN PRN Reason: SALINE FLUSH Last Admin: 12/03/19 05:44 Dose: 10 ml Documented by: STROKE Vital Signs/Narrative: Vital Signs Pulse Pulse Ox 12/03/19 07:45 93 12/03/19 07:22 69 Medical Necessity - Tobacco Use Smoking Status: Current every day smoker Tobacco Use: Cigarettes Assessment/Plan All Active Problems (Last Reviewed 12/03/19 @ 01:09 by Sean Smith MD) Anemia (Acute) Acute GI bleeding (Acute) 1. GI bleed * appears to have resolved * etiology suspected to be diverticulosis or internal hemorrhoids. * Discussed likely etiologies and recommended colonoscopy for evaluation, also, since he has never had one. Though this could be done as outpt * DW Dr. Mendoza 2. Anemia * appears stable * likely anemia of chronic disease 3. ESRD * HD due today. * nephrology on consult * Suspected due to rheumatid vasculitis, but not confirmed on Bx * Follow up with Dr. Nuñez this Thursday 4. Rheumatoid arthritis * on no DMARDs * take acetaminophen, no NSAIDs, for pain * follow up with Rheumatology as outpt. 5. VTE proph: SCDs. Chemical prophylaxis contraindicated given GI bleed Spent 35 minutes, of which greater than 50% of the time counseling the patient and his about the GI bleed, etiology and plan. All questions answered. Code Visit Inpatient E&M: 32489 Subs Hosp L3
[2019-12-03 12:36] LABS: Hematocrit 28.7 % (40-54); Hemoglobin 9.4 g/dL (13.0-16.5)
--- NOTE | 2019-12-03 13:16 | NURSING ---
called dialysis acute team asking when will preform dialysis today, informed that they are unaware of patient, have no orders from form worker yet, form worker called and reinformed of consult. lab work given.
[2019-12-03] MEDS: Acetaminophen 325 MG Tablet 650 MG PO (14:16)
--- NOTE | 2019-12-03 15:43 | PCM.CONS.R ---
Consultation - Renal 12/03/19 PCP/ Referring MD: Requesting physician: [] Primary care physician: Bekah Washington MD - History of Present Illness History of Present Illness: The patient is a 64 year old M with past medical history of end-stage renal disease and rheumatoid arthritis who presented with a chief complaint of hematochezia. He denies abdominal pain nausea vomiting diarrhea. Per ER he had maroon stool on rectal examination. He has been taking ibuprofen for pain because of rheumatoid arthritis. He denies fever chills discharge from the left IJ tunneled dialysis catheter chest pain or shortness of breath. He has no other complaints. His last dialysis was on and he dialyzes Thursday. - Allergies Allergies: Allergies No Known Allergies Allergy (Verified 12/02/19 21:34) - Current Medications Current Medications: Current Medications Acetaminophen (Tylenol) 650 mg PO Q6H PRN PRN PRN Reason: Pain Score 1-10/Temp > 100.7 F Last Admin: 12/03/19 14:16 Dose: 650 mg Documented by: Glucagon () 1 mg IM .X1 PRN PRN Reason: Hypoglycemia Pantoprazole Sodium 40 mg/ (Sodium Chloride) 110 mls @ 330 mls/hr IV Q12 DEBORAH Last Infusion: 12/03/19 10:21 Dose: Infused Documented by: Dextrose (Dextrose 10%-Water) 250 mls @ 999 mls/hr IV .Q16M PRN; Protocol PRN Reason: HYPOGLYCEMIA Sodium Chloride () 250 mls @ 15 mls/hr IV .[id number] PRN PRN Reason: Saline Flush Sodium Chloride () 250 mls @ 15 mls/hr IV .[id number] PRN PRN Reason: Additional IVPB Infusion Labetalol HCl (Trandate) 10 mg IV Q4H PRN PRN PRN Reason: SBP > 160 Last Admin: 12/03/19 04:33 Dose: 10 mg Documented by: Ondansetron HCl (Zofran) 4 mg IV Q8H PRN PRN PRN Reason: NAUSEA/VOMITING Sodium Chloride () 10 - 40 ml IV UD PRN PRN Reason: SALINE FLUSH Last Admin: 12/03/19 05:44 Dose: 10 ml Documented by: - Past Medical History Past Medical History (Chronic Problems): Chronic Problems (Last Reviewed 12/03/19 @ 01:09 by Sean Smith MD) Chronic renal insufficiency, stage V (Chronic) HTN (hypertension) (Chronic) Obesity (BMI 30-39.9) (Chronic) Tobacco use (Chronic) Rheumatoid arthritis (Chronic) - Past Surgical History Surgical History: - - 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 - Social History Smoking Status: Current every day smoker Alcohol: None - Family History Maternal History Items: - - Patient notes a maternal family history of heart disease/MT, age 8888 year old. Paternal History Items: Heart Disease, - Review of Systems Eyes: Reports: - - Of systems otherwise negative unless noted in the history of present illness Patient Problems: Active and Suspected Problems (Last Reviewed 12/03/19 @ 01:09 by Sean Smith MD) Anemia (Acute) Acute GI bleeding (Acute) - Physical Exam Vitals/I&O's: Vital Signs Temp Pulse Resp BP Pulse Ox 98.6 F 71 18 142/75 H 95 12/03/19 14:49 12/03/19 14:49 12/03/19 14:49 12/03/19 14:49 12/03/19 14:49 Oxygen Delivery Method Room Air Weight: 110.8 kg Body Mass Index (BMI) 35.0 Intake and Output for Last 24 Hours 12/01/19 12/02/19 12/03/19 23:59 23:59 23:59 Intake Total 684 / 684 Balance 684 / 684 General: Alert, Oriented x3, Cooperative HEENT: Atraumatic, PERRLA, EOMI, Normocephalic Neck: Supple, No JVD, Negative Carotid Bruits Lungs: Clear to auscultation, Normal air movement Cardiovascular: Regular rate, No murmurs Abdomen: Bowel Sounds Present, Soft, Non Tender Extremities: No edema, Capillary Refill Less than 3 Seconds Skin: No rashes, No breakdown Musculoskeletal: No Tenderness to Palpation of Joints or Extremities Neurological: Cranial nerves II-XII grossly intact Psych/Mental Status: Normal Affect, Appropriate Microbiology Past 72 Hours 12/02/19 22:35 Stool Stool Occult Blood (LAMONTE) - Final Laboratory Results 12/02/19 22:40: WBC 4.9, RBC 3.02 L, Hgb 9.1 L, Hct 28.3 L, MCV 93.7, MCH 30.1, MCHC 32.2, RDW Std Deviation 49.9 H, RDW Coeff of Brynn 14.6, Plt Count 146 L, MPV 10.7, Immature Gran % (Auto) 0.400, Neut % (Auto) 67.9, Lymph % (Auto) 12.6 L, [place] % (Auto) 16.5 H, Eos % (Auto) 2.2, Baso % (Auto) 0.4, Absolute Neuts (auto) 3.3, Absolute Lymphs (auto) 0.62 L, Nucleated RBC % 0 12/02/19 22:40: PT 13.3, INR 1.0, APTT 28.6 12/02/19 22:40: Sodium 138, Potassium 3.1 L, Chloride 101, Carbon Dioxide 30.0, Anion Gap 7, BUN 25 H, Creatinine 3.75 H, Estim Creat Clear Calc 20.55, Est GFR (MDRD) Af Amer 21 L, Est GFR (MDRD) Non-Af 17 L, BUN/Creatinine Ratio 6.7 L, Glucose 115 H, Calcium 7.5 L 12/02/19 22:40: Blood Type Cancelled, Antibody Screen Cancelled 12/02/19 22:40: Magnesium 1.8 12/03/19 00:20: Blood Type A POSITIVE, Antibody Screen NEGATIVE 12/03/19 04:15: Sodium 138, Potassium 3.1 L, Chloride 102, Carbon Dioxide 30.0, Anion Gap 6, BUN 26 H, Creatinine 3.78 H, Estim Creat Clear Calc 20.39, Est GFR (MDRD) Af Amer 21 L, Est GFR (MDRD) Non-Af 17 L, BUN/Creatinine Ratio 6.9 L, Glucose 92, Calcium 7.0 L 12/03/19 04:15: Hgb 8.7 L, Hct 26.2 L 12/03/19 12:20: Hgb 9.4 L, Hct 28.7 L Current Medications Acetaminophen (Tylenol) 650 mg PO Q6H PRN PRN PRN Reason: Pain Score 1-10/Temp > 100.7 F Last Admin: 12/03/19 14:16 Dose: 650 mg Documented by: Glucagon () 1 mg IM .X1 PRN PRN Reason: Hypoglycemia Pantoprazole Sodium 40 mg/ (Sodium Chloride) 110 mls @ 330 mls/hr IV Q12 DEBORAH Last Infusion: 12/03/19 10:21 Dose: Infused Documented by: Dextrose (Dextrose 10%-Water) 250 mls @ 999 mls/hr IV .Q16M PRN; Protocol PRN Reason: HYPOGLYCEMIA Sodium Chloride () 250 mls @ 15 mls/hr IV .[id number] PRN PRN Reason: Saline Flush Sodium Chloride () 250 mls @ 15 mls/hr IV .[id number] PRN PRN Reason: Additional IVPB Infusion Labetalol HCl (Trandate) 10 mg IV Q4H PRN PRN PRN Reason: SBP > 160 Last Admin: 12/03/19 04:33 Dose: 10 mg Documented by: Ondansetron HCl (Zofran) 4 mg IV Q8H PRN PRN PRN Reason: NAUSEA/VOMITING Sodium Chloride () 10 - 40 ml IV UD PRN PRN Reason: SALINE FLUSH Last Admin: 12/03/19 05:44 Dose: 10 ml Documented by: Assessment/Plan All Active Problems (Last Reviewed 12/03/19 @ 01:09 by Sean Smith MD) Anemia (Acute) Acute GI bleeding (Acute) ESRD anemia multifactorial GI bleed Dialysis today then resume Thursday. Blood pressure acceptable Continue to monitor hemoglobin. Noted surgery consult. Above assessment and plan was discussed at length with the patient voiced understanding and agrees to proceed with the plan as outlined above. He was given the opportunity to ask questions and stated that those were answered to his satisfaction. Thank you very much for allowing me to participate in the care of this patient. Please do not hesitate to call if you have any questions or concerns.
[2019-12-03 21:10] LABS: Hematocrit 29.6 % (40-54); Hemoglobin 9.5 g/dL (13.0-16.5)
[2019-12-03] MEDS: Heparin 10,000 UNITS/10 ML Vial 10000 UNITS IV (22:05)
--- NOTE | 2019-12-03 22:15 | DIALYSIS ---
Pt completed 3 hours hemodialysis via right chest CVC. 4 liters fluid removed during treatment. Dressing to CVC changed, site dry and nonred. CVC flushed with normal saline and locked with heparin per order. Pt tolerated treatment well.
[2019-12-04 00:08] VITALS: BP 155/88; PULSE 68; RESP 16; TEMP 37.5; O2SAT 94
[2019-12-04 00:39] VITALS: PULSE 138
[2019-12-04 01:31] VITALS: PULSE 70
[2019-12-04] MEDS: Acetaminophen 325 MG Tablet 650 MG PO (02:15)
[2019-12-04 06:00] VITALS: BP 147/86; PULSE 68; RESP 18; TEMP 36.8; O2SAT 97
[2019-12-04 06:49] LABS: Absolute Lymphocyte Count 0.82 X10^3/uL (0.83-4.51); Absolute Neutrophil Count 2.7 X10^3/uL (2.0-7.7); Basophil# 0.02 X10^3/uL; Basophil% 0.4 % (0-1); Eosinophil# 0.07 X10^3/uL; Eosinophils% 1.6 % (0-5); Hematocrit 28.2 % (40-54); Hemoglobin 9.1 g/dL (13.0-16.5); Lymphocyte # 0.82 X10^3/ul (4.0); Lymphocyte % 18.3 % (19-41); Mean Corp Hgb Conc 32.3 g/dL (32-36); Mean Corpuscular Hgb 30.8 pg (27.0-32.0); Mean Corpuscular Volume 95.6 fL (80-94); Mean Platelet Vol. 10.8 fl (6.2-12.0); Monocyte# 0.84 X10^3/uL; Monocyte% 18.8 % (0-10); NRBC Flagged by Analyzer 0 % (0-5); Neutrophil % 60.5 % (47-70); Platelet Count 156 K/mm3 (150-450); RBC Distribution Width CV 14.6 % (11.6-14.6); RBC Distribution Width SD 51.2 fl (35.1-43.9); Red Blood Count 2.95 M/mm3 (4.6-6.2); White Blood Count 4.5 K/mm3 (4.4-11.0)
[2019-12-04 06:58] LABS: Anion Gap 6 (5-15); BUN 21 mg/dL (7-18); BUN/Creat Ratio 5.8 RATIO (10-20); Calcium,Total 7.7 mg/dL (8.5-10.1); Chloride 105 mmol/L (98-107); Creatinine, Serum 3.59 mg/dL (0.70-1.30); EST Glomerular Filtration Rate 18 mL/min (>60); Est Glom Filt Rate - Afr Amer 22 mL/min (>60); Estimated Creatinine Clearance 21.46 ml/min; Glucose 90 mg/dL (74-106); Potassium 3.5 mmol/L (3.5-5.1); Sodium Level 139 mmol/L (136-145)
--- NOTE | 2019-12-04 08:52 | PCM.PN.SRG ---
Patient Problems: Active and Suspected Problems (Last Reviewed 12/03/19 @ 01:09 by Sean Smith MD) Anemia (Acute) Acute GI bleeding (Acute) Subjective: Patient's hemoglobin remained stable, patient did have a bowel movement with a small amount of blood stool was brown. - Physical Exam Vitals/I&O's: Vital Signs Temp Pulse Resp BP Pulse Ox 98.2 F 68 18 147/86 H 97 12/04/19 06:00 12/04/19 06:00 12/04/19 06:00 12/04/19 06:00 12/04/19 06:00 Oxygen Delivery Method Room Air Weight: 244 lb 4.355 oz Body Mass Index (BMI) 35.0 Intake and Output for Last 24 Hours 12/02/19 12/03/19 12/04/19 23:59 23:59 23:59 Intake Total 1314 / 1314 120 / 120 Balance 1314 / 1314 120 / 120 General: Alert, Oriented x3, Cooperative, No apparent distress HEENT: Atraumatic Lungs: Normal air movement Cardiovascular: Regular rate Abdomen: Soft, Non Tender, Non-Distended Microbiology Past 72 Hours 12/02/19 22:35 Stool Stool Occult Blood (LAMONTE) - Final Laboratory Results 12/03/19 12:20: Hgb 9.4 L, Hct 28.7 L 12/03/19 20:35: Hgb 9.5 L, Hct 29.6 L 12/04/19 05:44: Sodium 139, Potassium 3.5, Chloride 105, Carbon Dioxide 28.0, Anion Gap 6, BUN 21 H, Creatinine 3.59 H, Estim Creat Clear Calc 21.46, Est GFR (MDRD) Af Amer 22 L, Est GFR (MDRD) Non-Af 18 L, BUN/Creatinine Ratio 5.8 L, Glucose 90, Calcium 7.7 L 12/04/19 05:44: WBC 4.5, RBC 2.95 L, Hgb 9.1 L, Hct 28.2 L, MCV 95.6 H, MCH 30.8, MCHC 32.3, RDW Std Deviation 51.2 H, RDW Coeff of Brynn 14.6, Plt Count 156, MPV 10.8, Immature Gran % (Auto) 0.400, Neut % (Auto) 60.5, Lymph % (Auto) 18.3 L, [place] % (Auto) 18.8 H, Eos % (Auto) 1.6, Baso % (Auto) 0.4, Absolute Neuts (auto) 2.7, Absolute Lymphs (auto) 0.82 L, Nucleated RBC % 0 Current Medications Acetaminophen (Tylenol) 650 mg PO Q6H PRN PRN PRN Reason: Pain Score 1-10/Temp > 100.7 F Last Admin: 12/04/19 02:15 Dose: 650 mg Documented by: Glucagon () 1 mg IM .X1 PRN PRN Reason: Hypoglycemia Pantoprazole Sodium 40 mg/ (Sodium Chloride) 110 mls @ 330 mls/hr IV Q12 DEBORAH Last Infusion: 12/03/19 22:54 Dose: Infused Documented by: Dextrose (Dextrose 10%-Water) 250 mls @ 999 mls/hr IV .Q16M PRN; Protocol PRN Reason: HYPOGLYCEMIA Sodium Chloride () 250 mls @ 15 mls/hr IV .[id number] PRN PRN Reason: Saline Flush Sodium Chloride () 250 mls @ 15 mls/hr IV .[id number] PRN PRN Reason: Additional IVPB Infusion Labetalol HCl (Trandate) 10 mg IV Q4H PRN PRN PRN Reason: SBP > 160 Last Admin: 12/03/19 22:29 Dose: 10 mg Documented by: Ondansetron HCl (Zofran) 4 mg IV Q8H PRN PRN PRN Reason: NAUSEA/VOMITING Sodium Chloride () 10 - 40 ml IV UD PRN PRN Reason: SALINE FLUSH Last Admin: 12/03/19 22:25 Dose: 30 ml Documented by: Medical Necessity - Tobacco Use Smoking Status: Current every day smoker Tobacco Use: Cigarettes Assessment/Plan All Active Problems (Last Reviewed 12/03/19 @ 01:09 by Sean Smith MD) Anemia (Acute) Acute GI bleeding (Acute) 64 y/o M with blood per rectum, anemia 1. Tolerating diet hemoglobin remained stable okay to follow-up as an outpatient for colonoscopy. Patient is agreeable with plan. I have discussed the above with the patient. I have offered the patient colonoscopy for evaluation. I have explained the risks/benefits of the procedure and described the procedure. I have discussed the risks with the patient, including but not limited to: infection, bleeding, perforation of the GI tract requiring emergency surgery, inability to complete the procedure, injury to any internal organs, complications of anesthesia, etc. - the patient understands and agrees to proceed. I have answered all the patient's questions to the patient's satisfaction and the patient has no further questions. Patient can contact our office for golytely prep and scheduling of colonoscopy. Ivy Dixon M.D. Pager: [phone] [facility] [address] [place] [address], [address] [place] [address] Office: [phone] Code Visit Inpatient E&M: 86534 Subs Hosp L1
--- NOTE | 2019-12-04 09:31 | DCINST_ITS ---
- Discharge Diagnoses Current Active Problems: Current Active and Chronic Problems (Last Reviewed 12/03/19 @ 01:09 by Sean Smith MD) Anemia (Acute) Acute GI bleeding (Acute) You will use the following diet at home:: Renal (restricted protein/sodium) Discharge Activity: Return to Normal Activity Call your doctor if you observe: - - recurrent rectal bleeding. Allergies/Adverse Reactions: Allergies No Known Allergies Allergy (Verified 12/02/19 21:34) Medications to take at Discharge Acetaminophen [Tylenol Extra Strength] 500 mg PO DAILY 11/21/19 Carvedilol 25 mg PO BID 11/21/19 Cyanocobalamin [Vitamin B12] 500 mcg PO DAILY@0800 11/21/19 Nifedipine [Nifedipine ER] 60 mg PO DAILY 11/21/19 Pantoprazole Sodium [Protonix] 40 mg PO DAILY 11/21/19 Aspirin [Aspirin, Baby] 81 mg PO DAILY@0800 #0 12/04/19 Primary Care Physician: Bekah Washington MD [Primary Care Provider] - Within 2 Weeks Test Results: Test results from this visit will be discussed in further detail at your follow- up appointment, if applicable. Please Follow Up With: Ivy Dixon MD - General Surgery When: 2-4 weeks [facility] When: Every Thursday, , Thursday. Proposed Discharge Date: 12/04/19
--- NOTE | 2019-12-04 09:33 | DS.PCM_ITS ---
Discharge Date and Diagnosis - Problem List Patient Problems: Active and Suspected Problems (Last Reviewed 12/03/19 @ 01:09 by Saen Smith MD) Acute GI bleeding (Acute) Date of Admission: 12/02/19 Date of Discharge: 12/04/19 - Primary Discharge Diagnosis Active and Suspected Problems (Last Reviewed 12/03/19 @ 01:09 by Sean Smith MD) Anemia (Acute) Acute GI bleeding (Acute) - Secondary Discharge Diagnosis Chronic Problems (Last Reviewed 12/03/19 @ 01:09 by Sean Smith MD) Chronic renal insufficiency, stage V (Chronic) HTN (hypertension) (Chronic) Obesity (BMI 30-39.9) (Chronic) Tobacco use (Chronic) Rheumatoid arthritis (Chronic) Hospital Course and Treatment Anju Dixon, general surgery Nicolas Rueda, nephrology Operations: None Procedures: None Summary of Care Provided: The patient is a 64 year old M presents with rectal bleeding. Presented to the emergency room and was found to be anemic, with hemoglobin 9.1, but this is baseline for the patient. Patient was monitored and general surgery was consulted. Patient had no further bleeding while he was here and he denied having had any abdominal pain. Hemoglobin remained stable patient was otherwise doing well and tolerating diet. There is feeling of that this was due to diverticulosis or internal hemorrhoids. Patient will follow-up with general surgery to have an outpatient colonoscopy for further evaluation and screening purposes as patient is never had a colonoscopy. Patient was on aspirin which did not cause this but certainly did contribute to the amount of blood. That has been held and will be held until the when he can resume that. Patient instructed to hold that 5 days prior to any procedure. Patient is a dialysis patient and was seen in consultation by nephrology and patient did have hemodialysis on his regular scheduled day which was the . Patient will continue with his regular schedule of every Thursday and Thursday. [] Patient Problems: Active and Suspected Problems (Last Reviewed 12/03/19 @ 01:09 by Sean Smith MD) Acute GI bleeding (Acute) Subjective: No further bleeding. No abdominal pain. Tolerating diet. - Physical Exam Vitals/I&O's: Vital Signs Temp Pulse Resp BP Pulse Ox 36.8 C 68 18 147/86 H 97 12/04/19 06:00 12/04/19 06:00 12/04/19 06:00 12/04/19 06:00 12/04/19 06:00 Oxygen Delivery Method Room Air Weight: 110.8 kg Body Mass Index (BMI) 35.0 Intake and Output for Last 24 Hours 12/02/19 12/03/19 12/04/19 23:59 23:59 23:59 Intake Total 1314 / 1314 120 / 120 Balance 1314 / 1314 120 / 120 General: Alert, No apparent distress HEENT: Atraumatic, Normocephalic Oral: Moist Mucosa, No Gingival or Mucosal Lesions/ Ulcerations Neck: No Nodes, Trachea Midline Lungs: Clear to auscultation, Normal air movement, No rhonchi, No wheeze, No rales Cardiovascular: Regular rate, Regular Rhythm, Normal S1, Normal S2, No murmurs Abdomen: Bowel Sounds Present, Soft, Non Tender, Non-Distended, No Hepato- splenomegaly Extremities: No Calf Tenderness, Edema Microbiology Past 72 Hours 12/02/19 22:35 Stool Stool Occult Blood (LAMONTE) - Final Laboratory Results 12/03/19 12:20: Hgb 9.4 L, Hct 28.7 L 12/03/19 20:35: Hgb 9.5 L, Hct 29.6 L 12/04/19 05:44: Sodium 139, Potassium 3.5, Chloride 105, Carbon Dioxide 28.0, Anion Gap 6, BUN 21 H, Creatinine 3.59 H, Estim Creat Clear Calc 21.46, Est GFR (MDRD) Af Amer 22 L, Est GFR (MDRD) Non-Af 18 L, BUN/Creatinine Ratio 5.8 L, Glucose 90, Calcium 7.7 L 12/04/19 05:44: WBC 4.5, RBC 2.95 L, Hgb 9.1 L, Hct 28.2 L, MCV 95.6 H, MCH 30.8, MCHC 32.3, RDW Std Deviation 51.2 H, RDW Coeff of Brynn 14.6, Plt Count 156, MPV 10.8, Immature Gran % (Auto) 0.400, Neut % (Auto) 60.5, Lymph % (Auto) 18.3 L, [place] % (Auto) 18.8 H, Eos % (Auto) 1.6, Baso % (Auto) 0.4, Absolute Neuts (auto) 2.7, Absolute Lymphs (auto) 0.82 L, Nucleated RBC % 0 Current Medications Acetaminophen (Tylenol) 650 mg PO Q6H PRN PRN PRN Reason: Pain Score 1-10/Temp > 100.7 F Last Admin: 12/04/19 02:15 Dose: 650 mg Documented by: Glucagon () 1 mg IM .X1 PRN PRN Reason: Hypoglycemia Pantoprazole Sodium 40 mg/ (Sodium Chloride) 110 mls @ 330 mls/hr IV Q12 DEBORAH Last Infusion: 12/03/19 22:54 Dose: Infused Documented by: Dextrose (Dextrose 10%-Water) 250 mls @ 999 mls/hr IV .Q16M PRN; Protocol PRN Reason: HYPOGLYCEMIA Sodium Chloride () 250 mls @ 15 mls/hr IV .[id number] PRN PRN Reason: Saline Flush Sodium Chloride () 250 mls @ 15 mls/hr IV .[id number] PRN PRN Reason: Additional IVPB Infusion Labetalol HCl (Trandate) 10 mg IV Q4H PRN PRN PRN Reason: SBP > 160 Last Admin: 12/03/19 22:29 Dose: 10 mg Documented by: Ondansetron HCl (Zofran) 4 mg IV Q8H PRN PRN PRN Reason: NAUSEA/VOMITING Sodium Chloride () 10 - 40 ml IV UD PRN PRN Reason: SALINE FLUSH Last Admin: 12/03/19 22:25 Dose: 30 ml Documented by: Discharge Diet: Renal Diet Discharge Activity: Return to Normal Activity Call your doctor if you observe: - - recurrent rectal bleeding. Home Medications: Medications to take at Discharge Acetaminophen [Tylenol Extra Strength] 500 mg PO DAILY 11/21/19 Carvedilol 25 mg PO BID 11/21/19 Cyanocobalamin [Vitamin B12] 500 mcg PO DAILY@0800 11/21/19 Nifedipine [Nifedipine ER] 60 mg PO DAILY 11/21/19 Pantoprazole Sodium [Protonix] 40 mg PO DAILY 11/21/19 Aspirin [Aspirin, Baby] 81 mg PO DAILY@0800 #0 12/04/19 Primary Care Physician: Bekah Washington MD [Primary Care Provider] - Within 2 Weeks Please Follow Up With: Ivy Dixon MD - General Surgery When: 2-4 weeks Please Follow [facility] With: [facility] When: Every Thursday, , Thursday. Disposition: Home Minutes spent on discharge:: 28 Medical Necessity - Tobacco Use Smoking Status: Current every day smoker Tobacco Use: Cigarettes Meaningful Use Info Meaningful Use Diagnoses (Choose all that apply): None applicable Code Visit Inpatient E&M: 21926 Disch Hosp
[2019-12-04 10:01] VITALS: BP 148/93; PULSE 66; RESP 18; TEMP 37; O2SAT 99
--- NOTE | 2019-12-05 14:06 | CASEMGMT ---
REBECCA CM DC PHONE CALL DC DATE: 12.04.2019 DC Disposition: Home Diagnosis on Discharge: GIB LACE/STRATA: `08/11 Attempted call, no answer. PT has dialysis Juan GALO BSN RN ACM
== END 2019-12-04 10:16 | disposition home or self-care (01) | DRG 377 ==
LOC: ED 22:21 → MS3 23:34
PROVIDERS: Admitting Provider Hospitalist; Emergency Provider Emergency Medicine; PCP Internal Medicine
DX: K92.1 Melena (principal); N18.6 End stage renal disease; I12.0 Hypertensive chronic kidney disease with stage 5 chronic kidney disease or end stage renal disease; K64.0 First degree hemorrhoids; D63.8 Anemia in other chronic diseases classified elsewhere; M06.9 Rheumatoid arthritis, unspecified; E66.9 Obesity, unspecified; F17.210 Nicotine dependence, cigarettes, uncomplicated; Z68.35 Body mass index [BMI] 35.0-35.9, adult; Z99.2 Dependence on renal dialysis; E87.6 Hypokalemia; I89.0 Lymphedema, not elsewhere classified
CPT/HCPCS: 36415; 80048; 82274; 83735; 85014; 85018; 85025; 85610; 85730; 86850; 86900; 86901; 90937; 99284; 99406; A4216; G0257

== ENCOUNTER 2019-12-21 05:16 | Day surgery (SDC) | payer MEDICARE, SELFPAY ==
--- NOTE | 2019-11-21 03:20 | HP_ITS ---
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 Required: No Is patient in pain?: Yes (generalized) Allergies No Known Allergies Allergy (Verified 11/21/19 14:29) Medications Aspirin [Aspirin, Baby] 81 mg PO DAILY@0800 06/14/18 [History Confirmed 11/21/19] Acetaminophen [Tylenol Extra Strength] 500 mg PO DAILY 11/21/19 [History Confirmed 11/21/19] Carvedilol 25 mg PO BID 11/21/19 [History Confirmed 11/21/19] Cyanocobalamin [Vitamin B12] 500 mcg PO DAILY@0800 11/21/19 [History Confirmed 11/21/19] Nifedipine [Nifedipine ER] 60 mg PO DAILY 11/21/19 [History Confirmed 11/21/19] Pantoprazole Sodium [Protonix] 40 mg PO DAILY 11/21/19 [History Confirmed 11/21/19] Prednisone 20 mg PO DAILY 11/21/19 [History Confirmed 11/21/19] [facility] Medical History Cardiac disease (Acute) Kidney failure due to vascular disorder (Acute) 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 Patient states back in June of 2018 he woke in the middle of the night with tingling all over his body. He presented to the [place] ED and was transferred to [facility] due to possible heart attack/previous subclavian graft placement. Patient noted he was hospitalized for 5 days. He noted there was never a definitive diagnosis made as far as why he had decreased renal function. Patient noted he had a kidney biopsy in November 2018 which was non-specific and did not have a diagnosis. Patient then went to his PCP who referred the patient to Dr. Russo. Dr. Russo ran numerous lab tests which revealed patient had rheumatoid vasculitis. Patient was started on prednisone approximately 1 month ago. He noted unfortunately his kidneys did not rebound back. Patient has never been on dialysis previously. He does not have a current start date for dialysis. Patient states he has discussed with Dr. Russo about a fistula creation which he would like to pursue. He has not had any vein mapping at this point. Patient notes the previous subclavian stent graft was placed approximately 12 years ago after having multiple blood clots in the right upper extremity. ROS General General: Yes fatigue; no weight change, appetite, colon cancer, breast cancer or weakness HEENT HEENT: No difficulty swallowing, eye injury, eye surgery, swollen glands or hoarseness Endo Endocrine: No thyroid disease, diabetes mellitus, thyroid cancer, Hair loss, heat intolerance or cold intolerance Skin Skin: No rash or changing moles Breast Breast: No left breast lump, right breast lump, nipple discharge, breast pain, abnormal mammogram, abnormal US or breast enlargement Musc Musculoskeletal: Yes back problems, arthritis and rheumatoid arthritis; no gout or joint pain Cardio Cardiovascular: Yes murmur; no pacemaker, heart disease, atrial fibrillation, high blood pressure, heart attack, heart stent, palpitations, shortness of breat with exertion or chest pain Psych Psychiatric: No depression, anxiety or hearing voices Resp Respiratory: Yes shortness of breath, No sleep apnea, No cough, No COPD, No asthma, No emphysema, No wheezing Gastro Gastrointestinal: No abdominal pain, No nausea or vomiting, No diarrhea, No constipation, No blood in stool, No acid reflux, No hemorrhoids, No ulcers, No gallbladder problem, No black,tarry stools Matthew Hematologic: Yes blood thinners, No blood disorders, No bleeding, No anemia, No blood clots Neuro Neurologic: No system reviewed and no additional complaints, except as docu, No as per HPI, No abnormal walking, No abnormal hearing, No abnormal movements, No abnormal speech, No behavioral changes, No burning sensations, No confusion, No seizure-like activity, No unsteadiness, No dizziness, No localized weakness, No frequent falls, No headache(s), No lack of coordination, No loss of vision, No memory loss, No numbness, No other visual disturbances, No radiating pain, No restless legs, No sensory deficit, No fainting, No tingling, No tremor(s), No weakness, No other Exam Const General: cooperative, healthy appearing, comfortable, no acute distress HENFL Head: normal to inspection Eyes General: appearance normal, both eyes and all related structures Neck Neck: normal visual inspection Neck mass: No Chest Breast Palpation: No nipple discharge Resp Effort & Inspection: normal respiratory effort Auscultation: clear to auscultation bilaterally Cardio Rate: regular rate Rhythm: regular rhythm Heart Sounds: murmur GI Inspection: normal to inspection, obesity Auscultation: normal bowel sounds Skin General: dry skin Other: right upper chest- two nicely healed incisions noted. Neuro General: no focal motor deficits, CN's II-XI intact bilaterally Extrem General: edema Laterality: bilateral Psych Appearance: grossly normal Affect: normal affect Assessment & Plan Problems 1. Stage 5 chronic kidney disease not on chronic dialysis N18.5 2. Rheumatoid vasculitis M05.[address] Nuñez will plan to perform a left possible right tunneled dialysis chest catheter placement. Procedure details, risks and benefits have been explained. Patient has had the opportunity to ask and have questions answered. Patient verbally understands and agrees with the plan. Patient will be scheduled for vein mapping. He is scheduled for chest catheters for tomorrow. 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
--- NOTE | 2019-12-09 03:35 | HP_ITS ---
Intake Vital Signs 12/09/19 Height 5 ft 10 in 12/09/19 Weight: 235 lb 4 oz 12/09/19 BMI 33.7 12/09/19 BP 135/76 H 12/09/19 Blood Pressure Location Rt brachial 12/09/19 Position Sitting 12/09/19 Respiration 20 H 12/09/19 Pulse 68 12/09/19 Pulse Oximetry (%) 97 12/09/19 BMI 35.0 Intake Visit Reasons: FISTULA CREATION Chief Complaint: fistula creation Garment Liner Required: No Is patient in pain?: No Allergies No Known Allergies Allergy (Verified 12/09/19 15:11) Medications Acetaminophen [Tylenol Extra Strength] 500 mg PO DAILY 11/21/19 [History Confirmed 12/09/19] Carvedilol 25 mg PO BID 11/21/19 [History Confirmed 12/09/19] Cyanocobalamin [Vitamin B12] 500 mcg PO DAILY@0800 11/21/19 [History Confirmed 12/09/19] Nifedipine [Nifedipine ER] 60 mg PO DAILY 11/21/19 [History Confirmed 12/09/19] Pantoprazole Sodium [Protonix] 40 mg PO DAILY 11/21/19 [History Confirmed 12/09/19] Aspirin [Aspirin, Baby] 81 mg PO DAILY@0800 #0 12/04/19 [Rx Confirmed 12/09/19] [facility] Medical History (Updated 12/09/19 @ 15:32 by Arian Nuñez MD) Rectal bleeding (Acute) Cardiac disease (Acute) Kidney failure due to vascular disorder (Acute) 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 The patient has stage V chronic renal insufficiency. I urgently placed left internal jugular tunneled dialysis catheters. He has had remote right subclavian artery grafting. He ostensibly presents at this time for planning for a arteriovenous hemodialysis fistula. In the interim he has had an episode of rectal bleeding bright red blood around the stool. He was seen by [address] Maria Fernanda Dixon and recommendation for colonoscopy has been made. The patient states that that since that initial episode he has not had further rectal bleeding. He does not ever recall having had a colonoscopy. Since initiation of his dialysis he has lost 30 to 40 pounds in fluid weight. He feels much improved. [facility] [address] [place] [address] Saphenous Vein Mapping, Bilat 11/24/19 1302 MR#: [id number] Name:BINDU DUMONT PRep #:[id number] : 1955 64From:Arian Nuñez MD Attending Dr: ISABEL Brodericktatus: REG CLI Ordering Dr: Love Leon PA-CDate: 11/24/19 Location:CVSSex: Admitted: Reason For Study: Pre op testing Right Arm Left Arm Right Cephalic Vein at the wrist measures Left Cephalic Vein at the wrist measures 0.26 x 0.29 cm. 0.16 x 0.19 cm. Right Cephalic Vein in the forearm measures Left Cephalic Vein in the forearm measures 0.43 x 0.44 cm. 0.34 x 0.37 cm. Right Cephalic Vein below antecub measures Left Cephalic Vein below antecub measures 0.38 x 0.44 cm. 0.32 x 0.36 cm. Right Cephalic Vein above antecub measures Left Cephalic Vein above antecub measures 0.41 x 0.43 cm. 0.44 x 0.43 cm. Right Cephalic Vein mid bicep measures 0.37 Left Cephalic Vein at mid bicep measures x 0.40 cm. 0.30 x 0.31 cm. Right Cephalic Vein at the shoulder measures Left Cephalic Vein at the shoulder measures 0.35 x 0.37 cm. 0.35 x 0.40 cm. Right Basilic Vein at the origin measures Basilic vein at origin measures 0.74 x 0.79 0.88 x 0.91 cm. cm. Right Basilic Vein mid bicep measures 0.53 x Basilic vein at bicep measures 0.67 x 0.71 0.54 cm. cm. Right Basilic Vein above antecub measures Basilic vein above antecub measures 0.56 x 0.64 x 0.65 cm. 0.56 cm. Right Brachial artery measures 0.51 x 0.50 Left Brachial artery measures 0.55 x 0.57 cm cm with a velocity of 64 cm/sec. with a velocity of 86.4 cm/sec. Right Radial artery measures 0.29 x 0.30 cm Left Radial artery measures 0.34 x 0.34 cm with a. with a velocity of 62 cm/sec. Interpretation Summary Patent and compressible bilateral upper extremity cephalic and basilic veins with dimensions as noted Normal diameter and flow bilateral brachial and radial arteries Ordering Physician: Love Leon Referring Physician: Bekah Washington Performed By: Ashlie Mast RVT ? 11/24/19 1648 Date ROS General General: Yes fatigue; no weight change, appetite, colon cancer, breast cancer or weakness HEENT HEENT: No difficulty swallowing, eye injury, eye surgery, swollen glands or hoarseness Endo Endocrine: No thyroid disease, diabetes mellitus, thyroid cancer, Hair loss, heat intolerance or cold intolerance Skin Skin: No rash or changing moles Breast Breast: No left breast lump, right breast lump, nipple discharge, breast pain, abnormal mammogram, abnormal US or breast enlargement Musc Musculoskeletal: Yes back problems, arthritis and rheumatoid arthritis; no gout or joint pain Cardio Cardiovascular: Yes murmur (2/6 systolic ejection murmur); no pacemaker, heart disease, atrial fibrillation, high blood pressure, heart attack, heart stent, palpitations, shortness of breat with exertion or chest pain Psych Psychiatric: No depression, anxiety or hearing voices Resp Respiratory: Yes shortness of breath, No sleep apnea, No cough, No COPD, No asthma, No emphysema, No wheezing Gastro Gastrointestinal: No abdominal pain, No nausea or vomiting, No diarrhea, No constipation, No blood in stool, No acid reflux, No hemorrhoids, No ulcers, No gallbladder problem, No black,tarry stools Matthew Hematologic: Yes blood thinners, No blood disorders, No bleeding, No anemia, No blood clots Neuro Neurologic: No weakness Exam Const General: cooperative, comfortable, no acute distress Nutritional Appearance: obese Orientation: awake [facility] Head: normal to inspection Chest Breast Palpation: No nipple discharge Other: Marked kyphosis Resp Effort & Inspection: normal respiratory effort Auscultation: clear to auscultation bilaterally Cardio Rate: regular rate Rhythm: regular rhythm Heart Sounds: murmur (2/6 systolic ejection murmur) GI Palpation: soft, no hepatosplenomegaly Neuro Cognition: normal cognition Extrem Other: Persistent 2+ pitting edema bilateral lower extremities Left upper extremity has a nicely patent cephalic vein all the way from the wrist to the antecubital space. 3+ left radial pulse Normal Louis test with adequate ulnar flow Psych Affect: normal affect Assessment & Plan Problems 1. Chronic renal insufficiency, stage V N18.5 2. ESRD (end stage renal disease) on dialysis N18.6; Z99.2 3. Rectal bleeding K62.5 Plan For the patient's rectal bleeding I recommend to him a colonoscopy with possible biopsy or polypectomy as indicated. He claims that remotely he had an episode of diverticulitis. He thinks previously he had maybe a barium enema but that was greater than 20 years ago. I discussed with him colonoscopy with possible biopsy or polypectomy as indicated. He is aware of the technique, benefit, risk, alternatives. He has had an opportunity to ask and have questions answered. We will schedule and proceed at his discretion. Regarding the patient's need for arteriovenous fistula I propose for him a left forearm radial to cephalic arteriovenous fistula creation. I have described the technique, benefit, risk of alternatives. Because of the patient's previous right subclavian artery reconstruction grafting I prefer not to perform procedure on his right upper extremity. We additionally will schedule procedure at his discretion. I appreciate the ongoing opportunity of assisting with his surgical care. cc:Dr Washington and Dr Rafaela Nuñez M.D., F.A.C.S. Coding Level of Care Code Off vis,est,level 4 Diagnoses Chronic renal insufficiency, stage V N18.5 ESRD (end stage renal disease) on dialysis N18.6; Z99.2 Rectal bleeding K62.5 12/09/19 1535 <Electronically signed by Arian delaney MD> Date _ Arian Nuñez MD
[2019-12-09 15:07] VITALS: BMI 33.7
[2019-12-21 05:47] VITALS: BP 127/90; PULSE 71; RESP 16; TEMP 36.9; O2SAT 100; BMI 32.5
[2019-12-21] MEDS: Lactated Ringers 1,000 ML 100 ML IV (06:09)
--- NOTE | 2019-12-21 06:30 | COLBX_PTH ---
PATIENT: BINDU DUMONT LOC: EN U#:[id number] AGE/SX: 64/M ROOM: RE12/21/[address]: Dr. Arian Nuñez MD : 1955 BED: DIS: 12/21/2019 SPEC #: [id number] RECD: 12/21/19 08:18 STATUS: DALE REKizzy #: [id number] SHELBY: 12/21/19 06:[address]: Arian Nuñez DEPT: SURGICAL PATHOLOGY RECD BY: Milana Mcgee ENTERED: 12/22/19 08:19 SP TYPE: COLON BX OTHR DR: Dr. Bekah Washington MD Tissues: Transverse colon Procedures: Surgery Specimen Level IV HEADER OPERATION: Colonoscopy (MAC) PRE-OP DIAGNOSIS: Rectal bleeding TISSUE SUBMITTED: Transverse colon polyp MICROSCOPIC DIAGNOSIS Transverse colon polyp, biopsy: Tubular adenoma. AM:luis miguel 12/22/19 MICROSCOPIC DESCRIPTION Slides are reviewed. GROSS DESCRIPTION Received in fixative is one container labeled with the patient's name and designated transverse colon polyp. The specimen consists of a piece of hermosillo-pink polyp measuring 0.6 x 0.6 x 0.3 cm. The entire specimen is submitted in one cassette. / SJ:luis miguel 12/21/19 TC:5 CPT: 81363
[2019-12-21 07:04] VITALS: BP 127/90; BP 86/49; PULSE 61; RESP 12; TEMP 36.4; O2SAT 97
--- NOTE | 2019-12-21 07:08 | OP.CCLET_ITS ---
12/21/2019 Bekah Washington Md Re : Colonoscopy procedure for Barry Joe Sabino Washington This procedure was performed on Saturday, December 21, 2019. My impressions and recommendations are as follows: Impressions : - Preparation of the colon was fair. - Non-thrombosed external hemorrhoids, non-thrombosed internal hemorrhoids and internal hemorrhoids that prolapse with straining, but spontaneously regress to the resting position (Grade II) found on digital rectal exam. - A single non-bleeding colonic angiodysplastic lesion. Treated with argon beam coagulation. Clip was placed. - One 8 mm polyp in the distal transverse colon, removed with a hot snare. Resected and retrieved. Clip was placed. - One 4 mm polyp in the rectum, removed with a hot snare. Resected and retrieved. - Diverticulosis in the sigmoid colon and in the descending colon. Recommendations : - Discharge patient to home. - Resume previous diet. - Continue present medications. - Telephone my office for pathology results in 1 week. - Repeat colonoscopy in 5 years for surveillance based on pathology results. My findings are described in the full procedure note, which is enclosed. If I can be of further assistance, please feel free to contact me at Doctor phone number(s): Work: . Sincerely, Arian Nuñez MD 12/21/2019 7:08:06 AM This report has been signed electronically.
--- NOTE | 2019-12-21 07:08 | OP.COLON_ITS ---
Patient Name: Barry Joe Procedure Date: 12/21/2019 6:20 AM Date of : 1955 Age: 64 Procedure: Colonoscopy Indications: Rectal bleeding Providers: Arian Nuñez MD Referring MD: Bekah Washington Md Medicines: See the Anesthesia note for documentation of the administered medications Patient Profile: Last Colonoscopy: date unknown. Complications: No immediate complications. Procedure: Pre-Anesthesia Assessment: - Prior to the procedure, a History and Physical was performed, and patient medications and allergies were reviewed. The patient's tolerance of previous anesthesia was also reviewed. The risks and benefits of the procedure and the sedation options and risks were discussed with the patient. All questions were answered, and informed consent was obtained. Prior Anticoagulants: The patient has taken aspirin, last dose was day of procedure. ASA Grade Assessment: III - A patient with severe systemic disease. After reviewing the risks and benefits, the patient was deemed in satisfactory condition to undergo the procedure. After I obtained informed consent, the scope was passed under direct vision. Throughout the procedure, the patient's blood pressure, pulse, and oxygen saturations were monitored continuously. The colonoscope was introduced through the anus and advanced to the cecum, identified by appendiceal orifice and ileocecal valve. The colonoscopy was performed without difficulty. The patient tolerated the procedure well. The quality of the bowel preparation was fair. The ileocecal valve and the appendiceal orifice were photographed. Scope In: 6:39:41 AM Scope Withdrawal Time 0 hours 16 minutes 42 seconds Scope Out: 6:59:44 AM Total Procedure Duration Time 0 hours 20 minutes 3 seconds Findings: The digital rectal exam findings include non-thrombosed external hemorrhoids, non-thrombosed internal hemorrhoids and internal hemorrhoids that prolapse with straining, but spontaneously regress to the resting position (Grade II). A single medium-sized localized angiodysplastic lesion without bleeding was found in the cecum. Coagulation for bleeding prevention using argon beam at 0.8 liters/minute and 15 fortune was successful. To prevent bleeding post-intervention, one hemostatic clip was successfully placed. There was no bleeding at the end of the procedure. A 8 mm polyp was found in the distal transverse colon. The polyp was sessile. The polyp was removed with a hot snare. Resection and retrieval were complete. To prevent bleeding post-intervention, one hemostatic clip was successfully placed. There was no bleeding at the end of the procedure. A 4 mm polyp was found in the rectum. The polyp was sessile. The polyp was removed with a hot snare. Resection and retrieval were complete. Multiple diverticula were found in the sigmoid colon and descending colon. Impression: - Preparation of the colon was fair. - Non-thrombosed external hemorrhoids, non-thrombosed internal hemorrhoids and internal hemorrhoids that prolapse with straining, but spontaneously regress to the resting position (Grade II) found on digital rectal exam. - A single non-bleeding colonic angiodysplastic lesion. Treated with argon beam coagulation. Clip was placed. - One 8 mm polyp in the distal transverse colon, removed with a hot snare. Resected and retrieved. Clip was placed. - One 4 mm polyp in the rectum, removed with a hot snare. Resected and retrieved. - Diverticulosis in the sigmoid colon and in the descending colon. Recommendation: - Discharge patient to home. - Resume previous diet. - Continue present medications. - Telephone my office for pathology results in 1 week. - Repeat colonoscopy in 5 years for surveillance based on pathology results. Procedure Code(s): --- Professional --- 36368, 59, Colonoscopy, flexible; with control of bleeding, any method 32333, Colonoscopy, flexible; with removal of tumor(s), polyp(s), or other lesion(s) by snare technique Diagnosis Code(s): --- Professional --- K64.1, Second degree hemorrhoids K64.4, Residual hemorrhoidal skin tags K55.20, Angiodysplasia of colon without hemorrhage D12.3, Benign neoplasm of transverse colon (hepatic flexure or splenic flexure) K62.1, Rectal polyp K62.5, Hemorrhage of anus and rectum K57.30, Diverticulosis of large intestine without perforation or abscess without bleeding CPT copyright 2017 [employer] [place] [employer]. All rights reserved. The codes documented in this report are preliminary and upon wood heel attacher review may be revised to meet current compliance requirements. Arian Nuñez MD 12/21/2019 7:08:06 AM This report has been signed electronically. Number of Addenda: 0 Note Initiated On: 12/21/2019 6:20 AM
[2019-12-21 07:10] VITALS: BP 127/90; BP 82/70; PULSE 59; RESP 14; O2SAT 97
[2019-12-21 07:15] VITALS: BP 115/68; BP 127/90; PULSE 60; RESP 14; O2SAT 98
[2019-12-21 07:21] VITALS: BP 121/68; BP 127/90; PULSE 61; RESP 14; TEMP 36.2; O2SAT 99
[2019-12-21 07:44] VITALS: BP 127/90
== END 2019-12-21 07:46 | disposition home or self-care (01) ==
LOC: EN 05:16 → AC 05:17
PROVIDERS: PCP Internal Medicine; Referring Provider Internal Medicine; Visit Provider Surgery
PROC: 0DJD8ZZ Inspection of Lower Intestinal Tract, Via Natural or Artificial Opening Endoscopic (ICD-10-PCS; CPT 45378; principal; 2019-12-21 06:25)
DX: D12.3 Benign neoplasm of transverse colon (principal); K62.1 Rectal polyp; K55.20 Angiodysplasia of colon without hemorrhage; K64.1 Second degree hemorrhoids; K64.4 Residual hemorrhoidal skin tags; K57.30 Diverticulosis of large intestine without perforation or abscess without bleeding; M05.20 Rheumatoid vasculitis with rheumatoid arthritis of unspecified site; I12.0 Hypertensive chronic kidney disease with stage 5 chronic kidney disease or end stage renal disease; N18.6 End stage renal disease; Z99.2 Dependence on renal dialysis; R01.1 Cardiac murmur, unspecified; G25.81 Restless legs syndrome; Z87.19 Personal history of other diseases of the digestive system; Z86.718 Personal history of other venous thrombosis and embolism; Z79.82 Long term (current) use of aspirin; Z79.899 Other long term (current) drug therapy; F17.200 Nicotine dependence, unspecified, uncomplicated
CPT/HCPCS: 45382; 45385; 88305; J7120

== ENCOUNTER 2019-12-30 05:26 | Day surgery (SDC) | payer MEDICARE, SELFPAY ==
--- NOTE | 2019-11-21 03:20 | HP_ITS ---
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 Required: No Is patient in pain?: Yes (generalized) Allergies No Known Allergies Allergy (Verified 11/21/19 14:29) Medications Aspirin [Aspirin, Baby] 81 mg PO DAILY@0800 06/14/18 [History Confirmed 11/21/19] Acetaminophen [Tylenol Extra Strength] 500 mg PO DAILY 11/21/19 [History Confirmed 11/21/19] Carvedilol 25 mg PO BID 11/21/19 [History Confirmed 11/21/19] Cyanocobalamin [Vitamin B12] 500 mcg PO DAILY@0800 11/21/19 [History Confirmed 11/21/19] Nifedipine [Nifedipine ER] 60 mg PO DAILY 11/21/19 [History Confirmed 11/21/19] Pantoprazole Sodium [Protonix] 40 mg PO DAILY 11/21/19 [History Confirmed 11/21/19] Prednisone 20 mg PO DAILY 11/21/19 [History Confirmed 11/21/19] [facility] Medical History Cardiac disease (Acute) Kidney failure due to vascular disorder (Acute) 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 Patient states back in June of 2018 he woke in the middle of the night with tingling all over his body. He presented to the [place] ED and was transferred to [facility] due to possible heart attack/previous subclavian graft placement. Patient noted he was hospitalized for 5 days. He noted there was never a definitive diagnosis made as far as why he had decreased renal function. Patient noted he had a kidney biopsy in November 2018 which was non-specific and did not have a diagnosis. Patient then went to his PCP who referred the patient to Dr. Russo. Dr. Russo ran numerous lab tests which revealed patient had rheumatoid vasculitis. Patient was started on prednisone approximately 1 month ago. He noted unfortunately his kidneys did not rebound back. Patient has never been on dialysis previously. He does not have a current start date for dialysis. Patient states he has discussed with Dr. Russo about a fistula creation which he would like to pursue. He has not had any vein mapping at this point. Patient notes the previous subclavian stent graft was placed approximately 12 years ago after having multiple blood clots in the right upper extremity. ROS General General: Yes fatigue; no weight change, appetite, colon cancer, breast cancer or weakness HEENT HEENT: No difficulty swallowing, eye injury, eye surgery, swollen glands or hoarseness Endo Endocrine: No thyroid disease, diabetes mellitus, thyroid cancer, Hair loss, heat intolerance or cold intolerance Skin Skin: No rash or changing moles Breast Breast: No left breast lump, right breast lump, nipple discharge, breast pain, abnormal mammogram, abnormal US or breast enlargement Musc Musculoskeletal: Yes back problems, arthritis and rheumatoid arthritis; no gout or joint pain Cardio Cardiovascular: Yes murmur; no pacemaker, heart disease, atrial fibrillation, high blood pressure, heart attack, heart stent, palpitations, shortness of breat with exertion or chest pain Psych Psychiatric: No depression, anxiety or hearing voices Resp Respiratory: Yes shortness of breath, No sleep apnea, No cough, No COPD, No asthma, No emphysema, No wheezing Gastro Gastrointestinal: No abdominal pain, No nausea or vomiting, No diarrhea, No constipation, No blood in stool, No acid reflux, No hemorrhoids, No ulcers, No gallbladder problem, No black,tarry stools Matthew Hematologic: Yes blood thinners, No blood disorders, No bleeding, No anemia, No blood clots Neuro Neurologic: No system reviewed and no additional complaints, except as docu, No as per HPI, No abnormal walking, No abnormal hearing, No abnormal movements, No abnormal speech, No behavioral changes, No burning sensations, No confusion, No seizure-like activity, No unsteadiness, No dizziness, No localized weakness, No frequent falls, No headache(s), No lack of coordination, No loss of vision, No memory loss, No numbness, No other visual disturbances, No radiating pain, No restless legs, No sensory deficit, No fainting, No tingling, No tremor(s), No weakness, No other Exam Const General: cooperative, healthy appearing, comfortable, no acute distress HENNH Head: normal to inspection Eyes General: appearance normal, both eyes and all related structures Neck Neck: normal visual inspection Neck mass: No Chest Breast Palpation: No nipple discharge Resp Effort & Inspection: normal respiratory effort Auscultation: clear to auscultation bilaterally Cardio Rate: regular rate Rhythm: regular rhythm Heart Sounds: murmur GI Inspection: normal to inspection, obesity Auscultation: normal bowel sounds Skin General: dry skin Other: right upper chest- two nicely healed incisions noted. Neuro General: no focal motor deficits, CN's II-XI intact bilaterally Extrem General: edema Laterality: bilateral Psych Appearance: grossly normal Affect: normal affect Assessment & Plan Problems 1. Stage 5 chronic kidney disease not on chronic dialysis N18.5 2. Rheumatoid vasculitis M05.[address] Nuñez will plan to perform a left possible right tunneled dialysis chest catheter placement. Procedure details, risks and benefits have been explained. Patient has had the opportunity to ask and have questions answered. Patient verbally understands and agrees with the plan. Patient will be scheduled for vein mapping. He is scheduled for chest catheters for tomorrow. 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
--- NOTE | 2019-12-09 03:35 | HP_ITS ---
Intake Vital Signs 12/09/19 Height 5 ft 10 in 12/09/19 Weight: 235 lb 4 oz 12/09/19 BMI 33.7 12/09/19 BP 135/76 H 12/09/19 Blood Pressure Location Rt brachial 12/09/19 Position Sitting 12/09/19 Respiration 20 H 12/09/19 Pulse 68 12/09/19 Pulse Oximetry (%) 97 12/09/19 BMI 35.0 Intake Visit Reasons: FISTULA CREATION Chief Complaint: fistula creation Bilingual Administrative Assistant Required: No Is patient in pain?: No Allergies No Known Allergies Allergy (Verified 12/09/19 15:11) Medications Acetaminophen [Tylenol Extra Strength] 500 mg PO DAILY 11/21/19 [History Confirmed 12/09/19] Carvedilol 25 mg PO BID 11/21/19 [History Confirmed 12/09/19] Cyanocobalamin [Vitamin B12] 500 mcg PO DAILY@0800 11/21/19 [History Confirmed 12/09/19] Nifedipine [Nifedipine ER] 60 mg PO DAILY 11/21/19 [History Confirmed 12/09/19] Pantoprazole Sodium [Protonix] 40 mg PO DAILY 11/21/19 [History Confirmed 12/09/19] Aspirin [Aspirin, Baby] 81 mg PO DAILY@0800 #0 12/04/19 [Rx Confirmed 12/09/19] [facility] Medical History (Updated 12/09/19 @ 15:32 by Arian Nuñez MD) Rectal bleeding (Acute) Cardiac disease (Acute) Kidney failure due to vascular disorder (Acute) 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 The patient has stage V chronic renal insufficiency. I urgently placed left internal jugular tunneled dialysis catheters. He has had remote right subclavian artery grafting. He ostensibly presents at this time for planning for a arteriovenous hemodialysis fistula. In the interim he has had an episode of rectal bleeding bright red blood around the stool. He was seen by [address] Maria Fernanda Dixon and recommendation for colonoscopy has been made. The patient states that that since that initial episode he has not had further rectal bleeding. He does not ever recall having had a colonoscopy. Since initiation of his dialysis he has lost 30 to 40 pounds in fluid weight. He feels much improved. [facility] [address] [place] [address] Saphenous Vein Mapping, Bilat 11/24/19 1302 MR#: [id number] Name:BINDU DUMONT PRep #:[id number] : 1955 64From:Arian Nuñez MD Attending Dr: ISABEL Brodericktatus: REG CLI Ordering Dr: Love Leon PA-CDate: 11/24/19 Location:CVSSex: Admitted: Reason For Study: Pre op testing Right Arm Left Arm Right Cephalic Vein at the wrist measures Left Cephalic Vein at the wrist measures 0.26 x 0.29 cm. 0.16 x 0.19 cm. Right Cephalic Vein in the forearm measures Left Cephalic Vein in the forearm measures 0.43 x 0.44 cm. 0.34 x 0.37 cm. Right Cephalic Vein below antecub measures Left Cephalic Vein below antecub measures 0.38 x 0.44 cm. 0.32 x 0.36 cm. Right Cephalic Vein above antecub measures Left Cephalic Vein above antecub measures 0.41 x 0.43 cm. 0.44 x 0.43 cm. Right Cephalic Vein mid bicep measures 0.37 Left Cephalic Vein at mid bicep measures x 0.40 cm. 0.30 x 0.31 cm. Right Cephalic Vein at the shoulder measures Left Cephalic Vein at the shoulder measures 0.35 x 0.37 cm. 0.35 x 0.40 cm. Right Basilic Vein at the origin measures Basilic vein at origin measures 0.74 x 0.79 0.88 x 0.91 cm. cm. Right Basilic Vein mid bicep measures 0.53 x Basilic vein at bicep measures 0.67 x 0.71 0.54 cm. cm. Right Basilic Vein above antecub measures Basilic vein above antecub measures 0.56 x 0.64 x 0.65 cm. 0.56 cm. Right Brachial artery measures 0.51 x 0.50 Left Brachial artery measures 0.55 x 0.57 cm cm with a velocity of 64 cm/sec. with a velocity of 86.4 cm/sec. Right Radial artery measures 0.29 x 0.30 cm Left Radial artery measures 0.34 x 0.34 cm with a. with a velocity of 62 cm/sec. Interpretation Summary Patent and compressible bilateral upper extremity cephalic and basilic veins with dimensions as noted Normal diameter and flow bilateral brachial and radial arteries Ordering Physician: Love Leon Referring Physician: Bekah Washington Performed By: Ashlie Mast RVT ? 11/24/19 1648 Date ROS General General: Yes fatigue; no weight change, appetite, colon cancer, breast cancer or weakness HEENT HEENT: No difficulty swallowing, eye injury, eye surgery, swollen glands or hoarseness Endo Endocrine: No thyroid disease, diabetes mellitus, thyroid cancer, Hair loss, heat intolerance or cold intolerance Skin Skin: No rash or changing moles Breast Breast: No left breast lump, right breast lump, nipple discharge, breast pain, abnormal mammogram, abnormal US or breast enlargement Musc Musculoskeletal: Yes back problems, arthritis and rheumatoid arthritis; no gout or joint pain Cardio Cardiovascular: Yes murmur (2/6 systolic ejection murmur); no pacemaker, heart disease, atrial fibrillation, high blood pressure, heart attack, heart stent, palpitations, shortness of breat with exertion or chest pain Psych Psychiatric: No depression, anxiety or hearing voices Resp Respiratory: Yes shortness of breath, No sleep apnea, No cough, No COPD, No asthma, No emphysema, No wheezing Gastro Gastrointestinal: No abdominal pain, No nausea or vomiting, No diarrhea, No constipation, No blood in stool, No acid reflux, No hemorrhoids, No ulcers, No gallbladder problem, No black,tarry stools Matthew Hematologic: Yes blood thinners, No blood disorders, No bleeding, No anemia, No blood clots Neuro Neurologic: No weakness Exam Const General: cooperative, comfortable, no acute distress Nutritional Appearance: obese Orientation: awake [facility] Head: normal to inspection Chest Breast Palpation: No nipple discharge Other: Marked kyphosis Resp Effort & Inspection: normal respiratory effort Auscultation: clear to auscultation bilaterally Cardio Rate: regular rate Rhythm: regular rhythm Heart Sounds: murmur (2/6 systolic ejection murmur) GI Palpation: soft, no hepatosplenomegaly Neuro Cognition: normal cognition Extrem Other: Persistent 2+ pitting edema bilateral lower extremities Left upper extremity has a nicely patent cephalic vein all the way from the wrist to the antecubital space. 3+ left radial pulse Normal Louis test with adequate ulnar flow Psych Affect: normal affect Assessment & Plan Problems 1. Chronic renal insufficiency, stage V N18.5 2. ESRD (end stage renal disease) on dialysis N18.6; Z99.2 3. Rectal bleeding K62.5 Plan For the patient's rectal bleeding I recommend to him a colonoscopy with possible biopsy or polypectomy as indicated. He claims that remotely he had an episode of diverticulitis. He thinks previously he had maybe a barium enema but that was greater than 20 years ago. I discussed with him colonoscopy with possible biopsy or polypectomy as indicated. He is aware of the technique, benefit, risk, alternatives. He has had an opportunity to ask and have questions answered. We will schedule and proceed at his discretion. Regarding the patient's need for arteriovenous fistula I propose for him a left forearm radial to cephalic arteriovenous fistula creation. I have described the technique, benefit, risk of alternatives. Because of the patient's previous right subclavian artery reconstruction grafting I prefer not to perform procedure on his right upper extremity. We additionally will schedule procedure at his discretion. I appreciate the ongoing opportunity of assisting with his surgical care. cc:Dr Washington and Dr Rafaela Nuñez M.D., F.A.C.S. Coding Level of Care Code Off vis,est,level 4 Diagnoses Chronic renal insufficiency, stage V N18.5 ESRD (end stage renal disease) on dialysis N18.6; Z99.2 Rectal bleeding K62.5 12/09/19 1535 <Electronically signed by Arian delaney MD> Date Arian Nuñez MD I have re-examined the patient. There are no clinical changes since date of exam.
[2019-12-09 15:07] VITALS: BMI 33.7
[2019-12-22 17:25] LABS: Hematocrit 36.8 % (40-54); Hemoglobin 11.8 g/dL (13.0-16.5); Mean Corp Hgb Conc 32.1 g/dL (32-36); Mean Corpuscular Hgb 30.1 pg (27.0-32.0); Mean Corpuscular Volume 93.9 fL (80-94); Mean Platelet Vol. 10.5 fl (6.2-12.0); Platelet Count 323 K/mm3 (150-450); RBC Distribution Width CV 14.3 % (11.6-14.6); RBC Distribution Width SD 48.4 fl (35.1-43.9); Red Blood Count 3.92 M/mm3 (4.6-6.2); White Blood Count 8.1 K/mm3 (4.4-11.0)
[2019-12-22 17:51] LABS: Anion Gap 4 (5-15); BUN 11 mg/dL (7-18); BUN/Creat Ratio 4.6 RATIO (10-20); Calcium,Total 9.1 mg/dL (8.5-10.1); Chloride 101 mmol/L (98-107); Creatinine, Serum 2.41 mg/dL (0.70-1.30); EST Glomerular Filtration Rate 29 mL/min (>60); Est Glom Filt Rate - Afr Amer 35 mL/min (>60); Glucose 99 mg/dL (74-106); Potassium 3.2 mmol/L (3.5-5.1); Sodium Level 139 mmol/L (136-145)
--- NOTE | 2019-12-30 05:54 | HP.PCM_ITS ---
Problem List (1) Chronic renal insufficiency, stage V Status: Chronic History and Physical Date of Admission: 12/30/19 Intake Visit Reasons: FISTULA CREATION Chief Complaint: fistula creation [employer] Required: No Is patient in pain?: No Allergies No Known Allergies Allergy (Verified 12/09/19 15:11) Medications Acetaminophen [Tylenol Extra Strength] 500 mg PO DAILY 11/21/19 [History Confirmed 12/09/19] Carvedilol 25 mg PO BID 11/21/19 [History Confirmed 12/09/19] Cyanocobalamin [Vitamin B12] 500 mcg PO DAILY@0800 11/21/19 [History Confirmed 12/09/19] Nifedipine [Nifedipine ER] 60 mg PO DAILY 11/21/19 [History Confirmed 12/09/19] Pantoprazole Sodium [Protonix] 40 mg PO DAILY 11/21/19 [History Confirmed 12/09/19] Aspirin [Aspirin, Baby] 81 mg PO DAILY@0800 #0 12/04/19 [Rx Confirmed 12/09/19] [facility] Medical History (Updated 12/09/19 @ 15:32 by Arian Nuñez MD) Rectal bleeding (Acute) Cardiac disease (Acute) Kidney failure due to vascular disorder (Acute) 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 The patient has stage V chronic renal insufficiency. I urgently placed left internal jugular tunneled dialysis catheters. He has had remote right subclavian artery grafting. He ostensibly presents at this time for planning for a arteriovenous hemodialysis fistula. In the interim he has had an episode of rectal bleeding bright red blood around the stool. He was seen by [address] Maria Fernanda Dixon and recommendation for colonoscopy has been made. The patient states that that since that initial episode he has not had further rectal bleeding. He does not ever recall having had a colonoscopy. Since initiation of his dialysis he has lost 30 to 40 pounds in fluid weight. He feels much improved. [facility] [address] [place] [address] Saphenous Vein Mapping, Bilat 11/24/19 1302 MR#: [id number] Name:BINDU DUMONT PRep #:[id number] : 1955 64From:Arian Nuñez MD Attending Dr: ISABEL Brodericktatus: REG CLI Ordering Dr: Love Leon-CDate: 11/24/19 Location:[facility]: Admitted: Reason For Study: Pre op testing Right Arm Left Arm Right Cephalic Vein at the wrist measures Left Cephalic Vein at the wrist measures 0.26 x 0.29 cm. 0.16 x 0.19 cm. Right Cephalic Vein in the forearm measures Left Cephalic Vein in the forearm measures 0.43 x 0.44 cm. 0.34 x 0.37 cm. Right Cephalic Vein below antecub measures Left Cephalic Vein below antecub measures 0.38 x 0.44 cm. 0.32 x 0.36 cm. Right Cephalic Vein above antecub measures Left Cephalic Vein above antecub measures 0.41 x 0.43 cm. 0.44 x 0.43 cm. Right Cephalic Vein mid bicep measures 0.37 Left Cephalic Vein at mid bicep measures x 0.40 cm. 0.30 x 0.31 cm. Right Cephalic Vein at the shoulder measures Left Cephalic Vein at the shoulder measures 0.35 x 0.37 cm. 0.35 x 0.40 cm. Right Basilic Vein at the origin measures Basilic vein at origin measures 0.74 x 0.79 0.88 x 0.91 cm. cm. Right Basilic Vein mid bicep measures 0.53 x Basilic vein at bicep measures 0.67 x 0.71 0.54 cm. cm. Right Basilic Vein above antecub measures Basilic vein above antecub measures 0.56 x 0.64 x 0.65 cm. 0.56 cm. Right Brachial artery measures 0.51 x 0.50 Left Brachial artery measures 0.55 x 0.57 cm cm with a velocity of 64 cm/sec. with a velocity of 86.4 cm/sec. Right Radial artery measures 0.29 x 0.30 cm Left Radial artery measures 0.34 x 0.34 cm with a. with a velocity of 62 cm/sec. Interpretation Summary Patent and compressible bilateral upper extremity cephalic and basilic veins with dimensions as noted Normal diameter and flow bilateral brachial and radial arteries Ordering Physician: Love Leon Referring Physician: Bekah Washington Performed By: Ashlie Mast RVT ? 11/24/19 1648 Date ROS General General: Yes fatigue; no weight change, appetite, colon cancer, breast cancer or weakness HEENT HEENT: No difficulty swallowing, eye injury, eye surgery, swollen glands or hoarseness Endo Endocrine: No thyroid disease, diabetes mellitus, thyroid cancer, Hair loss, heat intolerance or cold intolerance Skin Skin: No rash or changing moles Breast Breast: No left breast lump, right breast lump, nipple discharge, breast pain, abnormal mammogram, abnormal US or breast enlargement Musc Musculoskeletal: Yes back problems, arthritis and rheumatoid arthritis; no gout or joint pain Cardio Cardiovascular: Yes murmur (2/6 systolic ejection murmur); no pacemaker, heart disease, atrial fibrillation, high blood pressure, heart att ack, heart stent, palpitations, shortness of breat with exertion or chest pain Psych Psychiatric: No depression, anxiety or hearing voices Resp Respiratory: Yes shortness of breath, No sleep apnea, No cough, No COPD, No asthma, No emphysema, No wheezing Gastro Gastrointestinal: No abdominal pain, No nausea or vomiting, No diarrhea, No constipation, No blood in stool, No acid reflux, No hemorrhoids, No ulcers, No gallbladder problem, No black,tarry stools Matthew Hematologic: Yes blood thinners, No blood disorders, No bleeding, No anemia, No blood clots Neuro Neurologic: No weakness Exam Const General: cooperative, comfortable, no acute distress Nutritional Appearance: obese Orientation: awake [facility] Head: normal to inspection Chest Breast Palpation: No nipple discharge Other: Marked kyphosis Resp Effort & Inspection: normal respiratory effort Auscultation: clear to auscultation bilaterally Cardio Rate: regular rate Rhythm: regular rhythm Heart Sounds: murmur (2/6 systolic ejection murmur) GI Palpation: soft, no hepatosplenomegaly Neuro Cognition: normal cognition Extrem Other: Persistent 2+ pitting edema bilateral lower extremities Left upper extremity has a nicely patent cephalic vein all the way from the wrist to the antecubital space. 3+ left radial pulse Normal Louis test with adequate ulnar flow Psych Affect: normal affect Assessment & Plan Problems 1. Chronic renal insufficiency, stage V N18.5 2. ESRD (end stage renal disease) on dialysis N18.6; Z99.2 3. Rectal bleeding K62.5 Plan For the patient's rectal bleeding I recommend to him a colonoscopy with possible biopsy or polypectomy as indicated. He claims that remotely he had an episode of diverticulitis. He thinks previously he had maybe a barium enema but that was greater than 20 years ago. I discussed with him colonoscopy with possible biopsy or polypectomy as indicated. He is aware of the technique, benefit, risk, alternatives. He has had an opportunity to ask and have questions answered. We will schedule and proceed at his discretion. Regarding the patient's need for arteriovenous fistula I propose for him a left forearm radial to cephalic arteriovenous fistula creation. I have described the technique, benefit, risk of alternatives. Because of the patient's previous right subclavian artery reconstruction grafting I prefer not to perform procedure on his right upper extremity. We additionally will schedule procedure at his discretion. I appreciate the ongoing opportunity of assisting with his surgical care. cc:Dr Washington and Dr Rafaela Nuñez M.D., F.A.C.S. Coding Level of Care Code Off vis,est,level 4 Diagnoses Chronic renal insufficiency, stage V N18.5 ESRD (end stage renal disease) on dialysis N18.6; Z99.2 Rectal bleeding K62.5 I anticipate proceeding with a left forearm radiocephalic arteriovenous fistula creation for him for long-term hemodialysis access. He has had an opportunity to ask and have questions answered. His colonoscopy was notable for an angiodysplasia quite small nonbleeding that was treated with argon beam and hemostatic clip. A tubular adenoma was resected from the colon was small. The patient did have hemorrhoids. There was no signs of GI bleeding at the time of the procedure. Arian Nuñez M.D., F.A.C.S.
[2019-12-30 05:55] VITALS: BP 163/95; PULSE 63; RESP 16; TEMP 36.7; O2SAT 97; BMI 31.6
[2019-12-30] MEDS: 0.45% Normal Saline 1,000 ML 100 ML IV (06:02)
--- NOTE | 2019-12-30 07:07 | DCINST_ITS ---
Discharge Diet: Renal Diet Discharge Activity: May Not Drive - for 2-3 days or while taking narcotic pain medications., May Shower, May Take a Tub Bath - in 5 days. May shower in (days): 2 Lifting Restrictions: 5 pounds Keep extremity elevated above heart level: - - Keep arm elevated above the heart level for 3 days. Additional Activity Instructions:: Exercise hand vigorously with a stress ball. Call your doctor if your incision/area has: Continuous Slow Oozing, Sudden Increased Bleeding - apply pressure and call your doctor., Increased Pain/ Swelling, Increased Redness, Foul Smelling Discharge Call your doctor if you observe: Fever of 101 or Higher Suture Line Care: Avoid Pulling/Pushing, Avoid Pinching/Bending Cleanse incision/area with: Keep Dressing Clean & Dry Additional Dressing/Incision Instructions:: Change or remove dressing in one day. May protect with a gauze bandaid. Allergies/Adverse Reactions: Allergies No Known Allergies Allergy (Verified 12/30/19 05:54) Medications to take at Discharge Acetaminophen [Tylenol Extra Strength] 500 mg PO DAILY 11/21/19 Carvedilol 25 mg PO BID 11/21/19 Cyanocobalamin [Vitamin B12] 500 mcg PO DAILY@0800 11/21/19 Nifedipine [Nifedipine ER] 30 mg PO QHS 11/21/19 Pantoprazole Sodium [Protonix] 40 mg PO DAILY 11/21/19 Aspirin [Aspirin, Baby] 81 mg PO DAILY@0800 #0 12/04/19 Orders to be completed after discharge: Basic Metabolic Profile (BMP) Time Frame: 12/19/19, Facility: [facility], Location: Laboratory CBC-Complete Blood Cnt No Diff Time Frame: 12/19/19, Facility: [facility], Location: Laboratory Primary Care Physician: Bekah Washington MD [Primary Care Provider] - Test Results: Test results from this visit will be discussed in further detail at your follow- up appointment, if applicable. Please Follow Up With: Arian Nuñez MD - [phone] When: Call to make an appointment for suture removal and follow up in 7-10 days
[2019-12-30] MEDS: Heparin Injection (Vial) 5,000 UNIT/ML VIAL 5000 UNIT (08:00)
[2019-12-30] MEDS: Bupivacaine Mpf 0.5% 30 ML VIAL (08:00)
--- NOTE | 2019-12-30 08:21 | OP.PCM_ITS ---
Problem List (1) Chronic renal insufficiency, stage V Status: Chronic Report of Operation Date of Procedure: 12/30/19 Pre-Operative Diagnosis: Stage V chronic renal insufficiency in need of arteriovenous access Post-Operative Diagnosis: Same Surgery/Procedure Performed:: Left forearm radial to cephalic arteriovenous hemodialysis fistula creation Description of Surgical Findings:: Timeout and informed consent was obtained. 64-year-old gentleman was taken the operating placement table. Underwent monitored anesthesia care. Clean procedure. No antibiotics required. The left upper extremity was sterilely prepped and draped. 1% lidocaine mixed 50-50 with 0.5% Marcaine was used as a local anesthetic. Throughout the procedure a total of 8 cc was used. Ultrasound was used to map the location of the left forearm cephalic vein and radial artery. The local was instilled. A slightly oblique transverse incision was created. Sharp and blunt dissection was used to identify the cephalic vein it was dissected free. Sharp and blunt dissection was used to identify the radial artery and it was elevated. The patient received 8000 units of heparin intravenously. The cephalic vein was ligated distally with a Hemoclip. The vein was slightly spatulated. Peripheral vascular clamps were placed on the radial artery. A 11 blade was used to make an arteriotomy which was extended wi th Castro scissors. A end-to-side anastomosis was created with a running 7-0 Prolene. Prior to completion of there is good retrograde and antegrade flow. The anastomosis was completed. There was initially very good flow through the vein. Vein appeared to be in good position. Doppler suggested nice flow. Hemostasis was intact. The deep tissue was approximated with a simple suture of 3-0 Vicryl. Skin edges proximal running septic or 4-0 Monocryl. Steri-Strips Telfa and tape dressings applied. Sponge and instrument and needle counts were reported to the surgeon to be correct. Blood loss quite minimal. He tolerated the procedure well was taken to the recovery room in satisfactory addition without apparent complication. Specimens none. Drains none. Blood loss minimal. Arian Nuñez M.D., F.A.C.S. Type of Anesthesia:: Local MAC Anesthesiologist: Erica Sutherland
[2019-12-30 08:25] VITALS: BP 124/92; BP 163/95; PULSE 70; RESP 16; TEMP 37; O2SAT 97
[2019-12-30 08:30] VITALS: BP 130/93; BP 163/95; PULSE 62; RESP 16; O2SAT 96
[2019-12-30 08:35] VITALS: BP 148/103; BP 163/95; PULSE 69; RESP 16; O2SAT 97
[2019-12-30 08:40] VITALS: BP 141/87; BP 163/95; PULSE 63; RESP 16; TEMP 36.9; O2SAT 97
[2019-12-30 10:57] VITALS: BP 163/95
== END 2019-12-30 10:58 | disposition home or self-care (01) ==
LOC: SDC 05:26 → AC 05:27
PROVIDERS: PCP Internal Medicine; Referring Provider Surgery; Visit Provider Surgery
PROC: (CPT 36821; principal; 2019-12-30 07:00)
DX: Z49.01 Encounter for fitting and adjustment of extracorporeal dialysis catheter (principal); I12.0 Hypertensive chronic kidney disease with stage 5 chronic kidney disease or end stage renal disease; N18.6 End stage renal disease; F17.200 Nicotine dependence, unspecified, uncomplicated; K55.20 Angiodysplasia of colon without hemorrhage; K64.9 Unspecified hemorrhoids; Z79.899 Other long term (current) drug therapy; Z79.82 Long term (current) use of aspirin; Z99.2 Dependence on renal dialysis; G25.81 Restless legs syndrome; Z86.718 Personal history of other venous thrombosis and embolism; M06.9 Rheumatoid arthritis, unspecified
CPT/HCPCS: 01844; 36821; 36415; 80048; 85027; J7120; J2405

== ENCOUNTER 2020-01-18 13:49 | Outpatient (RCR) | payer MEDICARE, SELFPAY ==
--- NOTE | 2020-01-18 15:26 | HP.PTEVAL ---
Patient's Visit Information BINDU DUMONT is a 64 year old M referred to Physical Therapy by Hanh Russo MD with a diagnosis of ESRD,LYMPHEDEMA,RA. Date of Evaluation: 01/18/20 Physical Therapist: Mike Danielle PT, Cert MDT, OCS - Visit Plan Frequency: 2x /Week Duration: 4 Weeks Plan: PRECATION: LIMIT RESTRICTION WT 20# .CHEST CATHEDAR ,DIAYLISIS T-TH-SAT. PT INTERVENTIONS GRADED LE STRENGTHENING,BALANCE/ENDURANCE PROGRAM - Subjective Subjective: This 64 y/o male presents to physical therapy with generalised weakness. Patient has multiple complexity issues developing ERSD 2018 whch progressivly worse with being hospitalized several times.Patient had dailysis left chest catheder placement Nov 2019 then 3 weeks fistaula left wrist surgery. Patient has h/o rheumatoid disease 20 years. Patient has lympedema in legs and calf uses compression sleeves. Patient lost 80 #. Patient denies parathesia/tingling. Patient major issue is weakness and balance,endurance. . Patient condtion affects ADLS',housework tasks.Patient affects QOL. PRECAUTION: 20 # wt limit,diaylsis T-TH-S. SOCAIL:. VOCATION: disablity. HOBBIES: fishing - Pain Bilateral Lower Extremity Pain Intensity (Out of 10): 5 Pain Intensity Range: 10 Comment: grossly - Objective POSTURE: mild foward posture. NEURO: intact. PALAPTION: unremarkabkle. EDEMA: 2+ lower legs. MMT: quads/hams 4-/5,hip flexion/abd 3+/5,ankle 4-/5. GAIT: reciprocal pattern. STAIRS: one step at a time. FLEXABLITY: hams mod tight - Balance Scores Functional Gait Assessment Score: 24 % Disability: 20.0000 CATSIB Score (Max score 120 seconds): 105 - Goals Goal 1:: Independant with HEP Goal Time Frame: 4-6 Weeks Goal 2:: Patient to improve functional gait assesment score by 5 points to improve gait. Goal Time Frame: 4-6 Weeks Goal 3:: Patient to increase strength by 4/5 to improve with ADLS' Goal Time Frame: 4-6 Weeks Goal 4:: Patient improve LFES score by 5-8 points to improve QOL. Goal Time Frame: 4-6 Weeks Goal 5:: Patient improve endurance to good - for ADL'S Goal Time Frame: 4-6 Weeks - Rehabilitation Potential Physical Therapy Diagnosis: Patient has multiple complexity issues with generalized weakness lower legs,decrease endurance and function/balance with with ADLS Rehabilitation Potential: Good - Anticipated Interventions Patient/Client Instruction: Educate patient on: Condition, Plan of Care For the Purpose of:: To decrease pain, To improve muscle performance and motor function, To improve ability to perform ADL's, To increase tolerance to activity/condition/position, To improve performance and independence with ADL's, To improve ability of physical actions for home/community/work/leisure Thank you for the opportunity to evaluate your patient. For Medicare and Medicare HMO plans, please review the plan of care and approve it. It will need to be FAXED BACK to us at [phone] for Medicare purposes. For Medicare only, by signing this I certify the plan of care. Please let me know if there are questions or concerns regarding this plan of care. Physician Signature: Date:
--- NOTE | 2020-02-29 08:56 | HP.PT.NRP ---
BINDU DUMONT was seen in my office for initial evaluation on 01/18/20. The following Plan of Care was established for this patient: Initial Frequency: 2x /Week Initial Duration: 4 Weeks Patient/Client Instruction: Educate patient on: Condition, Plan of Care For the Purpose of:: To decrease pain, To improve muscle performance and motor function, To improve ability to perform ADL's, To increase tolerance to activity/condition/position, To improve performance and independence with ADL's, To improve ability of physical actions for home/community/work/leisure This patient was last seen in our office . Pertinent comments regarding their Physical therapy will appear below: Patient seen for PT for valuation for HEP. At this point I will be discontinuing this patient from physical therapy. I would be happy to see this patient again in the future if found appropriate by the physician. Thank you! Mike Danielle, PT, Cert MDT, OCS
== END 2020-01-18 19:00 | disposition home or self-care (01) ==
LOC: PT 13:49
PROVIDERS: PCP Internal Medicine; Referring Provider Internal Medicine Nephrology; Visit Provider Internal Medicine Nephrology
DX: N18.6 End stage renal disease (principal); I89.0 Lymphedema, not elsewhere classified; M05.10 Rheumatoid lung disease with rheumatoid arthritis of unspecified site
CPT/HCPCS: 97110; 97162

== ENCOUNTER 2020-03-10 16:37 | Emergency (ER) | payer MEDICARE, SELFPAY ==
[2020-02-20 13:15] VITALS: BMI 31.6
[2020-03-10 16:38] VITALS: BP 118/79; PULSE 52; RESP 18; TEMP 36.6; O2SAT 99; BMI 31.7
[2020-03-10 16:42] VITALS: BP 118/79; PULSE 52; RESP 18; TEMP 36.6; O2SAT 99
--- NOTE | 2020-03-10 17:15 | EKG12_ITS ---
Test Reason : DIZZINESS Blood Pressure : / mmHG Vent. Rate : 053 BPM Atrial Rate : 053 BPM P-R Int : 200 ms QRS Dur : 084 ms QT Int : 494 ms P-R-T Axes : -17 -33 -28 degrees QTc Int : 463 ms Sinus bradycardia Left axis deviation Low voltage QRS Inferior infarct , age undetermined Abnormal ECG Confirmed by OTILIO NDIAYE, CRIS ([id number]), state editor HAILEE COLON ([id number]) on 03/13/2020 10:57:48 AM Referred By: DEBI Confirmed By:CRIS YAÑEZ MD
[2020-03-10 17:42] VITALS: BP 129/74; PULSE 51; RESP 18; TEMP 36.6; O2SAT 100
[2020-03-10 18:00] VITALS: BP 129/74; PULSE 51; RESP 18; TEMP 36.6; O2SAT 100
[2020-03-10 18:06] LABS: Absolute Lymphocyte Count 2.06 X10^3/uL (0.83-4.51); Absolute Neutrophil Count 3.2 X10^3/uL (2.0-7.7); Basophil# 0.06 X10^3/uL; Basophil% 0.9 % (0-1); Eosinophil# 0.61 X10^3/uL; Hematocrit 35.2 % (40-54); Hemoglobin 11.5 g/dL (13.0-16.5); Lymphocyte # 2.06 X10^3/ul (4.0); Lymphocyte % 30.3 % (19-41); Mean Corp Hgb Conc 32.7 g/dL (32-36); Mean Corpuscular Hgb 31.2 pg (27.0-32.0); Mean Corpuscular Volume 95.4 fL (80-94); Monocyte# 0.81 X10^3/uL; Monocyte% 11.9 % (0-10); NRBC Flagged by Analyzer 0 % (0-5); Neutrophil # 3.23 X10^3/uL (2.7-7.7); Neutrophil % 47.6 % (47-70); Platelet Count 156 K/mm3 (150-450); RBC Distribution Width CV 15.2 % (11.6-14.6); RBC Distribution Width SD 52.9 fl (35.1-43.9); Red Blood Count 3.69 M/mm3 (4.6-6.2); White Blood Count 6.8 K/mm3 (4.4-11.0)
[2020-03-10 18:17] LABS: Anion Gap 6 (5-15); BUN 40 mg/dL (7-18); Calcium,Total 8.8 mg/dL (8.5-10.1); Chloride 100 mmol/L (98-107); Creatinine, Serum 5.69 mg/dL (0.70-1.30); EST Glomerular Filtration Rate 11 mL/min (>60); Est Glom Filt Rate - Afr Amer 13 mL/min (>60); Estimated Creatinine Clearance 13.54 ml/min; Glucose 97 mg/dL (74-106); Potassium 4.1 mmol/L (3.5-5.1); Sodium Level 136 mmol/L (136-145)
--- NOTE | 2020-03-10 18:47 | ED.DCSUM_ITS ---
- ER Visit Summary Date of Service: 03/10/20 Chief Complaint: Lightheaded History of Present Illness: The patient is a [address] Rogers and Dr. Gonzalez. He has a history of end-stage renal disease. He had dialysis today. He reports that he was stopped an hour early because his fistula had infil trated. They took off 1 kg. However, he still 1 kg over his dry weight. Patient reports that he went home and been standing outside in the sun for approximately 10 minutes when he began feeling very lightheaded. He denies any chest pain or palpitations. No abdominal pain or shortness of breath with this. He denies any other symptoms. He went inside the house and sat down and this did not resolve. He laid his head on the table and then it did resolve after approximately 30 minutes. He denies any loss of consciousness. He denies any other complaints. He is never had any thing like this before. Physical Examination: Vitals: Stable. Afebrile. General: Well-nourished and well-developed. Head: Normocephalic atraumatic. Neck: Supple, no lymphadenopathy. No JVD. Nontender. Cardiovascular: Bradycardic regular rhythm. No murmurs. Respiratory: No respiratory distress. Clear to auscultation bilaterally. Abdominal: Soft, nontender, nondistended, normal bowel sounds. No guarding, rebound, or peritoneal signs. Back: Nontender. Extremities: Nontender, no edema. Fistula in his left forearm. There is a palpable thrill. Skin: Normal color, no rash. Neurologic: Alert and oriented ?3. Cranial nerves II through XII are intact. Normal strength and sensation. Psych: Normal affect. Test Results: EKG is sinus bradycardia at [address] changes. Chem- 7 shows a BUN of 40 and creatinine 5.69. CBC shows an H&H 11.5 and 35.2, monocytes 12, eosinophils of 9. Emergency Department Course and Treatment: Patient received reports that since beginning dialysis in November that he has been doing much better. He has lost a significant amount of weight. They are having to decrease his antihypertensive. He has had his Norvasc decreased to 5 mg a day. However, he still takes 25 mg of carvedilol twice daily. Has been on this for quite some time. I suspect the patient had some fluid shifts from dialysis. He went outside into the warm sun and vasodilated. Due to his carvedilol he was unable to increase his heart rate and became lightheaded from this. Treatment Plan: Patient was discussed with his conventional machinist, Dr. Russo, who agrees with cutting the dose of his carvedilol in half and will follow up with him next week. Patient is happy with this plan. Return to the emergency department for any worsening symptoms. Disposition: To home in improved and stable condition. Impression: 1. Near syncope. 2. Bradycardia on carvedilol. 3. End stage renal disease. This note was generated with [employer] dictation software. It may contain incorrect words, spelling, and punctuation that were not noted in review of the chart prior to signing ED Disposition - Plan for ED Patient: Disposition: Home or Assisted Living Instructions: ED Hypotension Orthostatic Prescriptions: Carvedilol [Coreg] 12.5 mg PO BID #60 tab Prescription Printed Referrals: Bekah Washington MD [Primary Care Provider] - Hanh Russo MD [STAFF PHYSICIAN] - Keep Curtis appointment Additional Instructions: Decrease your carvedilol to 12.5 mg twice a day.
[2020-03-10 19:19] VITALS: BP 129/73; PULSE 53; RESP 18; O2SAT 98
== END 2020-03-10 19:26 | disposition home or self-care (01) ==
LOC: ED 16:50
PROVIDERS: Emergency Provider Emergency Medicine; PCP Internal Medicine
DX: R55 Syncope and collapse (principal); R00.1 Bradycardia, unspecified; N18.6 End stage renal disease; I12.9 Hypertensive chronic kidney disease with stage 1 through stage 4 chronic kidney disease, or unspecified chronic kidney disease; F17.200 Nicotine dependence, unspecified, uncomplicated; Z99.2 Dependence on renal dialysis; Z79.82 Long term (current) use of aspirin
CPT/HCPCS: 80048; 85025; 93005; 99285; A4216

== ENCOUNTER 2020-06-18 10:10 | Day surgery (SDC) | payer MEDICARE, SELFPAY ==
[2020-06-06 15:55] VITALS: BMI 31.7
[2020-06-13 14:11] LABS: Hematocrit 35.8 % (40-54); Mean Corp Hgb Conc 33.5 g/dL (32-36); Mean Corpuscular Hgb 35.7 pg (27.0-32.0); Mean Corpuscular Volume 106.5 fL (80-94); Mean Platelet Vol. 10.6 fl (6.2-12.0); Platelet Count 206 K/mm3 (150-450); RBC Distribution Width CV 13.6 % (11.6-14.6); RBC Distribution Width SD 52.9 fl (35.1-43.9); Red Blood Count 3.36 M/mm3 (4.6-6.2); White Blood Count 7.2 K/mm3 (4.4-11.0)
[2020-06-13 15:04] LABS: Anion Gap 9 (5-15); BUN 65 mg/dL (7-18); Calcium,Total 8.6 mg/dL (8.5-10.1); Chloride 99 mmol/L (98-107); Creatinine, Serum 8.13 mg/dL (0.70-1.30); EST Glomerular Filtration Rate 7 mL/min (>60); Est Glom Filt Rate - Afr Amer 9 mL/min (>60); Glucose 82 mg/dL (74-106); Potassium 4.7 mmol/L (3.5-5.1); Sodium Level 136 mmol/L (136-145)
--- NOTE | 2020-06-18 09:51 | HP.PCM_ITS ---
Problem List (1) Problem with dialysis access Status: Acute Qualifiers: History and Physical Date of Admission: 06/18/20 Intake Visit Reasons: RECHECK FISTULA Chief Complaint: decreased flows, diff cannulating Pediatric Intensive Physician Required: No Is patient in pain?: No Allergies No Known Allergies Allergy (Verified 06/06/20 15:55) Medications Acetaminophen [Tylenol Extra Strength] 500 mg PO DAILY 11/21/19 [History Confirmed 06/06/20] Cyanocobalamin [Vitamin B12] 500 mcg PO DAILY@0800 11/21/19 [History Confirmed 06/06/20] Nifedipine [Nifedipine ER] 30 mg PO QHS 11/21/19 [History Confirmed 06/06/20] Pantoprazole Sodium [Protonix] 40 mg PO DAILY 11/21/19 [History Confirmed 06/06/20] Aspirin [Aspirin, Baby] 81 mg PO DAILY@0800 #0 12/04/19 [Rx Confirmed 06/06/20] Carvedilol [Coreg] 12.5 mg PO BID #60 tab 03/10/20 [Rx Confirmed 06/06/20] PFSH Medical History Rectal bleeding (Acute) Cardiac disease (Acute) Kidney failure due to vascular disorder (Acute) 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 Arian Nuñez MD) Smoking Status: Current every day smoker alcohol intake: never HPI HPI HPI: BINDU DUMONT, is a 64 M who presents to the office today for surgical consultation regarding difficulties with a left forearm radiocephalic arteriovenous hemodialysis fistula. There is been difficulty at the dialysis center with infiltration. His most recent attempt apparently was 4 separate efforts. I created this fistula for him on December 30, 2019. His most recent office visit was May 09, 2020 where I removed tunneled dialysis catheters for him. He otherwise has no complaints. No hand pain. He states that he is currently being evaluated for possible valve replacement or repair of his mitral valve HPI HPI HPI: BINDU DUMONT, is a 64 M who presents to the office today for ROS General General: Yes fatigue; no weight change, appetite, colon cancer, breast cancer or weakness HEENT HEENT: No difficulty swallowing, eye injury, eye surgery, swollen glands or hoarseness Endo Endocrine: No thyroid disease, diabetes mellitus, thyroid cancer, Hair loss, heat intolerance or cold intolerance Skin Skin: No rash or changing moles Breast Breast: No left breast lump, right breast lump, nipple discharge, breast pain, abnormal mammogram, abnormal US or breast enlargement Musc Musculoskeletal: Yes back problems, arthritis and rheumatoid arthritis; no gout or joint pain Cardio Cardiovascular: Yes murmur (2/6 systolic ejection murmur); no pacemaker, heart disease, atrial fibrillation, high blood pressure, heart attack, heart stent, palpitations, shortness of breat with exertion or chest pain Psych Psychiatric: No depression, anxiety or hearing voices Resp Respiratory: Yes shortness of breath, No sleep apnea, No cough, No COPD, No asthma, No emphysema, No wheezing Gastro Gastrointestinal: No abdominal pain, No nausea or vomiting, No diarrhea, No constipation, No blood in stool, No acid reflux, No hemorrhoids, No ulcers, No gallbladder problem, No black,tarry stools Matthew Hematologic: Yes blood thinners, No blood disorders, No bleeding, No anemia, No blood clots Neuro Neurologic: No weakness Exam Const General: cooperative, comfortable, no acute distress Nutritional Appearance: average body habitus Orientation: alert, awake [facility] Head: normal to inspection Chest Breast Palpation: No nipple discharge Resp Effort & Inspection: normal respiratory effort Auscultation: clear to auscultation bilaterally Cardio Rate: regular rate Rhythm: regular rhythm Heart Sounds: murmur (2/6 systolic ejection murmur) GI Palpation: soft Extrem Other: Left upper extremity demonstrates a radial cephalic arteriovenous hemodialysis fistula with a pulse and thrill and bruit. I performed ultrasound inspection and I believe that there is a relative area of stenosis within 1 to 2 cm of the arterial anastomosis. There are also several dominant side branches as well to in the proximal third of the forearm and one more distally. Assessment & Plan Problems 1. Problem with dialysis access, initial encounter T82.767V Plan I recommend to the patient a left upper extremity fistulogram. I would anticipate using ultrasound to access much closer to the antecubital space retrograde with flow. I have discussed with him the technique, benefit, risk and alternatives. He is aware of the Covid-19 pandemic. He is aware that the [facility] is reporting a low local incidence. We will schedule procedure at his discretion. In addition he has 2 dominant side branches in the proximal third of the forearm and one distally closer to the wrist. If the angioplasty is not sufficient then I would recommend an additional office appointment in future for sidebranch ligation. Arian Nuñez M.D., F.A.C.S. Coding Level of Care Code Off vis,est,level 2 Diagnoses Problem with dialysis access, initial encounter T82.898A ??Encounter type: initial encounter I have re-examined the patient. There are no clinical changes since date of exam. Procedure Criteria Procedure Type: Elective COVID Risk Discussion: The surgeon/proceduralist and patient have discussed in detail the risk of exposure to and/or potential harm posed by the COVID-19 virus with having a surgery/procedure at this time versus the risk of delaying the surgery/procedure. It is not possible to know either the risk of delaying the surgery or procedure or chance of getting an infection with perfect accuracy, but a joint decision was made between the patient and the surgeon/proceduralist to proceed at this time with the scheduled surgery/procedure as indicated on the consent form.
--- NOTE | 2020-06-18 11:45 | OP.PCM_ITS ---
Problem List (1) Problem with dialysis access Status: Acute Qualifiers: Report of Operation Date of Procedure: 06/18/20 Pre-Operative Diagnosis: Diminished flow left forearm radial to cephalic arteriovenous hemodialysis fistula Post-Operative Diagnosis: Moderately severe 4 cm long stenosis proximal left forearm radiocephalic AV fistula. Moderate mid forearm sidebranch collateralization Surgery/Procedure Performed:: Left upper extremity fistulogram with 6 x 4 [employer] proximal fistula balloon angioplasty Description of Surgical Findings:: Timeout and informed consent was obtained. 64-year-old gentleman was taken to the special procedures lab placed upon the table. The left upper semi-was sterilely prepped and draped. 50 mcg of fentanyl and 2 mg of Versed were given as intravenous sedation. Under ultrasound guidance 2% lidocaine was instilled closer to the antecubital space retrograde with flow. Micropuncture needle inserted. Micropuncture wire inserted. 6 Jordanian short sheath dilator is inserted. Using a 035 angled Glidewire and a 4 Jordanian glide cath access was gained to the radial artery proximal to the anastomosis. A fistulogram was o btained using Isovue contrast. This demonstrated about a 3 to 6 to 4 cm long area of moderately severe stenosis with variability. So then I was able to place the Glidewire back in. I placed a 6 x 4 [employer] balloon. Balloon angioplasty up to 30 steph of pressure was performed. Completion view demonstrated improvement some residual stenosis and there appeared to be some venous spasm at the access site so at this point I gave the patient 5000 units of heparin. I reintroduced a balloon and at the additional area of proximal venous stenosis reperform balloon angioplasty up to 30 steph of pressure. I then obtained a completion fistulogram demonstrated resolution of the area of proximal venous stenosis. We completed the fistulogram for the upper extremity demonstrating wide open central venous outflow. Sheath was removed. A U suture of 4-0 nylon was placed. Additional simple suture of 4-0 nylon was required. Hemostasis was intact. There was a nice pulse thrill and bruit at the completion no apparent complication hand was viable and the patient tolerated the procedure well. The fistulogram demonstrates a left forearm radiocephalic AV fistula. The anastomosis appears to be nicely patent however there appears to be some variability in the moderate severe stenosis of the proximal first 4 cm of the fistula. There is collateralized flow in the mid fistula. The upper arm outflo w is excellent. This is through the left upper arm cephalic and basilic vein. Subsequent to the balloon angioplasty there is resolution of the proximal fistula venous stenosis. Arian Nuñez M.D., F.A.C.S. Type of Anesthesia:: IV Sedation, Local
== END 2020-06-18 12:55 | disposition home or self-care (01) ==
LOC: CLSP 10:10
PROVIDERS: PCP Internal Medicine; Referring Provider Surgery; Visit Provider Surgery
DX: T82.858A Stenosis of other vascular prosthetic devices, implants and grafts, initial encounter (principal); Y83.9 Surgical procedure, unspecified as the cause of abnormal reaction of the patient, or of later complication, without mention of misadventure at the time of the procedure; Z79.82 Long term (current) use of aspirin; Z79.899 Other long term (current) drug therapy; I51.9 Heart disease, unspecified; F17.200 Nicotine dependence, unspecified, uncomplicated; Z99.2 Dependence on renal dialysis; N18.9 Chronic kidney disease, unspecified
CPT/HCPCS: 36415; 36902; 76937; 80048; 85027; 99152; 99153; Q9967; C1725; C1769

== ENCOUNTER → 2022-03-19 | Outpatient (CLI) | payer MEDICARE, BC, SELFPAY ==
[2022-03-19 11:09] LABS: Erythrocyte Sedimentation Rate 35 mm/hr (0-20)
[2022-03-19 11:11] LABS: Absolute Neutrophil Count 4.4 X10^3/uL (2.0-7.7); Basophil# 0.05 X10^3/uL; Basophil% 0.7 % (0-1); Eosinophil# 0.29 X10^3/uL; Eosinophils% 4.1 % (0-5); Hematocrit 35.2 % (40-54); Mean Corp Hgb Conc 34.1 g/dL (32-36); Mean Corpuscular Hgb 34.2 pg (27.0-32.0); Mean Corpuscular Volume 100.3 fL (80-94); Mean Platelet Vol. 10.5 fl (6.2-12.0); Monocyte# 0.88 X10^3/uL; Monocyte% 12.6 % (0-10); NRBC Flagged by Analyzer 0 % (0-5); Neutrophil # 4.36 X10^3/uL (2.7-7.7); Neutrophil % 62.3 % (47-70); Platelet Count 198 K/mm3 (150-450); RBC Distribution Width CV 12.6 % (11.6-14.6); RBC Distribution Width SD 45.9 fl (35.1-43.9); Red Blood Count 3.51 M/mm3 (4.6-6.2)
[2022-03-19 11:25] LABS: International Normalized Ratio 1.1; Prothrombin Time (Protime)PT. 13.5 SECONDS (11.7-14.9)
[2022-03-19 11:57] LABS: ALB/GLOB Ratio 0.9 RATIO (0.9-2.4); AST(SGOT) 19 U/L (15-37); Alanine Aminotransfer ALT/SGPT 29 U/L (16-61); Albumin, Serum 3.8 g/dL (3.2-5.0); Alkaline Phosphatase 54 U/L (45-117); Anion Gap 9 (5-15); BUN 42 mg/dL (7-18); BUN/Creat Ratio 6.7 RATIO (10-20); CRP < 2.90 mg/L (0.0-3.0); Calcium,Total 9.2 mg/dL (8.5-10.1); Chloride 94 mmol/L (98-107); EST Glomerular Filtration Rate 10 mL/min (>60); Est Glom Filt Rate - Afr Amer 12 mL/min (>60); Ferritin 166 ng/mL (26-388); Globulin 4.1 g/dL (2.2-4.2); Glucose 94 mg/dL (74-106); HIV - WCH Non-Reactive (Nonreactive); LDH 170 U/L (87-241); Potassium 4.8 mmol/L (3.5-5.1); Protein, Total 7.9 g/dL (6.4-8.2); Sodium Level 132 mmol/L (136-145)
[2022-03-19 12:55] LABS: Hemoglobin A1c 4.7 % (3.8-5.6)
[2022-03-20 14:10] LABS: Anti-Centromere B Ab <0.2 AI (0.0-0.9); Anti-Chromatin <0.2 AI (0.0-0.9); Anti-Jo <0.2 AI (0.0-0.9); Anti-Scleroderma-70 AB <0.2 AI (0.0-0.9); RNP Ab 0.2 AI (0.0-0.9); SJOGREN'S Anti-SS-A test < 0.2 AI (0.0-0.9); SJOGREN'S Anti-SS-B test < 0.2 AI (0.0-0.9); Smith Ab <0.2 AI (0.0-0.9)
[2022-03-20 16:04] LABS: Anti-Mitochondrial AB <20.0 Units (0.0-20.0); Anti-dsDNA Ab <1 IU/mL (0-9)
[2022-03-24 10:07] LABS: Angiotensin Convert Enzyme 35 U/L (14-82); Ceruloplasmin 20.2 mg/dL (16.0-31.0); Cytoplasmic Ab (C-ANCA) <1:20 titer (Neg:<1:20)
[2022-03-24 13:35] LABS: AFP, Tumor Marker 4.2 ng/mL (0.0-8.4); Anti-Smooth Muscle ABS 6 Units (0-19); Copper, Serum or Plasma 97 ug/dL (69-132); Haptoglobin 127 mg/dL (32-363); Perinuclear Ab (P-ANCA) <1:20 titer (Neg:<1:20)
[2022-03-24 14:15] LABS: Hepatitis C Genotype 1b
== END | disposition home or self-care (01) ==
LOC: LAB 10:38
PROVIDERS: PCP Internal Medicine; Visit Provider Nurse Practitioner Adult Health
DX: R07.9 Chest pain, unspecified (principal); N18.5 Chronic kidney disease, stage 5; B19.20 Unspecified viral hepatitis C without hepatic coma
CPT/HCPCS: 36415; 80053; 82105; 82140; 82164; 82390; 82525; 82728; 83010; 83036; 83516; 83615; 85025; 85610; 85652; 86140; 86225; 86235; 86256; 86703; 87902

== ENCOUNTER → 2022-04-11 | Outpatient (CLI) | payer MEDICARE, BC, SELFPAY ==
--- NOTE | 2022-04-11 09:19 | US_ITS ---
STUDY: ABDOMINAL ULTRASOUND - RIGHT UPPER QUADRANT REASON FOR VISIT: Male, 66 years old . History of hepatitis C. TECHNIQUE: Ultrasound evaluation of the right upper quadrant was performed with real-time and static marx-scale imaging. TECHNICAL QUALITY: Adequate. COMPARISON: None. FINDINGS: Liver: The liver measures 17.6 cm. There is a heterogeneous echogenicity of the liver. The bile ducts are within normal limits. There is hepatic color flow. The direction of portal flow is hepatopetal. There is no demonstrated mass lesion. Gallbladder: Normal distended gallbladder. The gallbladder wall measures 1.6 mm. There is a negative sonographic Nowak''s sign. There is no pericholecystic fluid. There are no gallstones. Common Bile Duct (C.B.D.): The common bile duct measures 5.2 mm. Pancreas: Normal size of the head, body and tail of the pancreas. There is normal echogenicity of the pancreas. There is no demonstrated pancreatic mass or cyst. Right Kidney: There is atrophy of the right kidney. The right kidney measures 8.8 cm x 4 cm x 3.6 cm. There is thinning of the renal cortex. The renal cortex is echogenic suggestive of medical renal disease. The right cortex measures 0.5 cm. 2 renal cysts are seen the largest measures 1.7 cm x 1.6 x 1.5 cm in the lower pole. There is no right hydronephrosis. US/Abdomen Limited IMPRESSION: Heterogeneous appearance of the liver. Borderline hepatomegaly. Atrophy of the right kidney. Electronically Signed: Pierce Kuhn MD at 11:50 EDT ,
--- NOTE | 2022-04-11 09:19 | US_ITS ---
STUDY: ABDOMINAL ULTRASOUND - ELASTOGRAPHY REASON FOR VISIT: Male, 66 years old. History of hepatitis C. TECHNIQUE: Liver stiffness measurements were obtained on a [employer] RS 85 ultrasound machine using a CA 1-7 probe following the SRU guidelines. 3 measurements were obtained using a 2-D-SWE method. The IQR/M was 23% suggesting a quality data set. TECHNICAL QUALITY: Adequate. COMPARISON: Comparison is made with prior study done earlier in the day. FINDINGS: Liver: Heterogeneous appearance of the hepatic parenchyma. Median liver stiffness measured 7.6 kPa. US/Elastography Parenchyma/Organ IMPRESSION: Liver stiffness measures 7.6 kPa compatible with F2-F3 (Mild to moderate liver fibrosis) Metavir score. Electronically Signed: Pierce Kuhn MD at 11:52 EDT ,
== END | disposition home or self-care (01) ==
LOC: US 09:18
PROVIDERS: PCP Internal Medicine; Referring Provider Nurse Practitioner Adult Health; Visit Provider Nurse Practitioner Adult Health
DX: B19.20 Unspecified viral hepatitis C without hepatic coma (principal)
CPT/HCPCS: 76705; 76981

== ENCOUNTER → 2022-06-04 | Outpatient (CLI) | payer MEDICARE, BC, SELFPAY ==
[2022-06-04 15:30] LABS: Absolute Lymphocyte Count 1.56 X10^3/uL (0.83-4.51); Absolute Neutrophil Count 4.9 X10^3/uL (2.0-7.7); Basophil# 0.04 X10^3/uL; Basophil% 0.5 % (0-1); Eosinophil# 0.29 X10^3/uL; Eosinophils% 3.7 % (0-5); Hematocrit 33.4 % (40-54); Hemoglobin 11.3 g/dL (13.0-16.5); Lymphocyte # 1.56 X10^3/ul (0.83-4.51); Lymphocyte % 20.1 % (19-41); Mean Corp Hgb Conc 33.8 g/dL (32-36); Mean Corpuscular Hgb 33.6 pg (27.0-32.0); Mean Corpuscular Volume 99.4 fL (80-94); Mean Platelet Vol. 11.3 fl (6.2-12.0); Monocyte# 0.99 X10^3/uL; Monocyte% 12.7 % (0-10); NRBC Flagged by Analyzer 0 % (0-5); Neutrophil # 4.87 X10^3/uL (2.7-7.7); Neutrophil % 62.7 % (47-70); Platelet Count 212 K/mm3 (150-450); RBC Distribution Width CV 12.4 % (11.6-14.6); RBC Distribution Width SD 45.1 fl (35.1-43.9); Red Blood Count 3.36 M/mm3 (4.6-6.2); White Blood Count 7.8 K/mm3 (4.4-11.0)
[2022-06-04 16:16] LABS: ALB/GLOB Ratio 0.9 RATIO (0.9-2.4); AST(SGOT) 13 U/L (15-37); Alanine Aminotransfer ALT/SGPT 15 U/L (16-61); Albumin, Serum 3.8 g/dL (3.2-5.0); Alkaline Phosphatase 54 U/L (45-117); Anion Gap 10 (5-15); BUN 46 mg/dL (7-18); BUN/Creat Ratio 6.6 RATIO (10-20); Calcium,Total 9.4 mg/dL (8.5-10.1); Chloride 93 mmol/L (98-107); Creatinine, Serum 6.93 mg/dL (0.70-1.30); EST Glomerular Filtration Rate 9 mL/min (>60); Est Glom Filt Rate - Afr Amer 10 mL/min (>60); Globulin 4.1 g/dL (2.2-4.2); Glucose 91 mg/dL (74-106); Potassium 4.6 mmol/L (3.5-5.1); Protein, Total 7.9 g/dL (6.4-8.2); Sodium Level 135 mmol/L (136-145)
[2022-06-06 21:07] LABS: HCV Quant. RNA PCR HCV Not Detected IU/mL (.)
== END | disposition home or self-care (01) ==
LOC: LAB 13:35
PROVIDERS: PCP Internal Medicine; Referring Provider Nurse Practitioner Adult Health; Visit Provider Nurse Practitioner Adult Health
DX: B19.20 Unspecified viral hepatitis C without hepatic coma (principal)
CPT/HCPCS: 36415; 80053; 85025; 87522

== ENCOUNTER → 2022-08-01 | Outpatient (CLI) | payer MEDICARE, BC, SELFPAY ==
[2022-08-01 13:43] LABS: Absolute Neutrophil Count 4.2 X10^3/uL (2.0-7.7); Basophil# 0.05 X10^3/uL; Basophil% 0.7 % (0-1); Eosinophil# 0.22 X10^3/uL; Eosinophils% 3.1 % (0-5); Hematocrit 34.9 % (40-54); Hemoglobin 11.6 g/dL (13.0-16.5); Lymphocyte % 24.1 % (19-41); Mean Corp Hgb Conc 33.2 g/dL (32-36); Mean Corpuscular Volume 102.3 fL (80-94); Mean Platelet Vol. 10.6 fl (6.2-12.0); Monocyte% 12.8 % (0-10); NRBC Flagged by Analyzer 0 % (0-5); Neutrophil # 4.15 X10^3/uL (2.7-7.7); Platelet Count 213 K/mm3 (150-450); RBC Distribution Width CV 13.2 % (11.6-14.6); RBC Distribution Width SD 49.5 fl (35.1-43.9); Red Blood Count 3.41 M/mm3 (4.6-6.2)
[2022-08-01 14:08] LABS: ALB/GLOB Ratio 0.8 RATIO (0.9-2.4); AST(SGOT) 10 U/L (15-37); Alanine Aminotransfer ALT/SGPT 15 U/L (16-61); Albumin, Serum 3.6 g/dL (3.2-5.0); Alkaline Phosphatase 46 U/L (45-117); Anion Gap 8 (5-15); BUN 38 mg/dL (7-18); BUN/Creat Ratio 5.9 RATIO (10-20); Chloride 95 mmol/L (98-107); Creatinine, Serum 6.48 mg/dL (0.70-1.30); EST Glomerular Filtration Rate 9 mL/min (>60); Est Glom Filt Rate - Afr Amer 11 mL/min (>60); Globulin 4.4 g/dL (2.2-4.2); Glucose 96 mg/dL (74-106); Potassium 4.8 mmol/L (3.5-5.1); Sodium Level 137 mmol/L (136-145)
[2022-08-04 16:08] LABS: HCV Quant. RNA PCR HCV Not Detected IU/mL (.)
== END | disposition home or self-care (01) ==
LOC: LAB 13:02
PROVIDERS: PCP Internal Medicine; Referring Provider Nurse Practitioner Adult Health; Visit Provider Nurse Practitioner Adult Health
DX: B19.20 Unspecified viral hepatitis C without hepatic coma (principal)
CPT/HCPCS: 36415; 80053; 85025; 87522

== ENCOUNTER 2023-11-08 00:12 | Emergency (ER) | payer MEDICARE, BC, SELFPAY ==
[2023-11-08 00:13] VITALS: BP 162/93; PULSE 89; RESP 18; TEMP 36.4; O2SAT 98; BMI 31.1
--- NOTE | 2023-11-08 00:22 | EDS_ITS ---
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 Home Medications acetaminophen 500 mg tablet 500 mg PO DAILY PAIN 11/21/19 [History Last Taken Unknown] cyanocobalamin (vitamin B-12) 500 mcg tablet 500 mcg PO DAILY@0800 supplement 11/21/19 [History Last Taken 12/02/19 08:00] nifedipine 60 mg tablet,extended release 30 mg PO QHS BLOOD PRESSURE 11/21/19 [History Last Taken 12/20/19 22:00] pantoprazole 40 mg tablet,delayed release 40 mg PO DAILY REFLUX 11/21/19 [History Last Taken 12/02/19 07:00] aspirin 81 mg chewable tablet 81 mg PO DAILY@0800 [employer] ##0 12/04/19 [Rx Last Taken 12/20/19 08:00] amlodipine 5 mg tablet 5 mg PO BID 08/24/23 [History Last Taken Unknown] carvedilol 12.5 mg tablet 6.25 mg PO BID 08/24/23 [History Last Taken Unknown] Allergy/AdvReac Type Severity Reaction Status Date / Time No Known Allergies Allergy Verified 11/08/23 00:13 Surgical History History of bicuspid aortic valve History of umbilical hernia Hx of arteriovenostomy for renal dialysis (~12/2019) S/P knee surgery s/p subclavian graft Status post insertion of dialysis catheter (~11/2019) Social History Smoking Status: Current every day smoker tobacco type: cigarettes alcohol intake: never EXAM Physical Exam Const Vital Signs: 11/08/23 00:13 Temperature 97.6 F L Temperature Source Temporal Pulse Rate 89 Respiratory Rate 18 Blood Pressure 162/93 H Blood Pressure Mean 116 Pulse Ox 98 Oxygen Delivery Method Room Air MDM MDM MDM Narrative Medical decision making narrative: HISTORY OF PRESENT ILLNESS: 67-year-old male scratched area on his upper lip that will not stop bleeding . States he received heparin today prior to dialysis. REVIEW OF SYSTEMS: Pertinent positives: Bleeding wound Pertinent negatives: Lightheadedness, dizziness, syncope, chest pain, shortness of breath PHYSICAL EXAM: Nursing triage notes reviewed, Vital signs reviewed Constitutional: please see mdm HENT: MMM, small punctate area of bleeding noted to the left upper lip. Eyes: Pupils equal round and reactive to light, Extraocular muscles intact MEDICAL DECISION MAKING: Chief Complaint: Lip bleeding External records reviewed: No blood thinners or upon medication review Factors affecting care: Hypertension, ESRD, tobacco abuse, rheumatoid arthritis no blood thinners noted Social determinants of health: none History obtained from others: The patient's Consults: none [facility] Narrative: Patient was hemodynamically stable, afebrile, nontoxic-appearing. There is a patchy area of the left upper lip that was slightly oozing bright red blood. There is a possibility of the bleeding. There is Surgicel and direct p ressure for approximate half hour without relief of symptoms. Apply chlorhexidine cleaning solution and then placed 1 [id number] stitch over the area with hemostasis. Bleeding precautions discussed. Infection precautions were discussed. Procedure: Laceration repair. The procedure was performed by myself. Indication: Wound repair Risks and benefits: risks, benefits and alternatives were discussed Consent: Consent was obtained. Wound Details: Punctate lesion to the left lateral upper lip Anesthesia: None Wound prep: Patient was prepped and draped in the usual sterile fashion. Tetanus: No indication for update as this was not a laceration Irrigation Solution: Saline Wound Preparation: Cleaned with chlorhexidine The wound was explored to its base in a bloodless field. Procedure Description: Placed one 5-0 Chromic Gut stitch in a [id number] pattern with complete hemostasis Patient tolerated the procedure well with no immediate complications The patient and/or family, caregivers express understanding. The patient and/or family, caregivers agrees with the plan. Shared decision making: I will have a discussion with the patient and or visitors regarding risk/benefits of further testing or admission. They will be made aware of of the risk/benefits inherent in this decision they will be given the opportunity to voice understanding. Total critical care time today provided was at least 0 minutes. This excludes separately billable procedures. Critical care time (if documented) is secondary to the patient having high probability of clinically significant/life threatening deterioration in the patient's condition which required my urgent intervention. Impression: 1. Lip hemorrhage Dispo: Discharge Discharge Plan Triage Chief Complaint: Wound Check ED Provider: Wiley Fraire Dx/Rx/DC Orders Clinical Impression: Hemorrhage Instructions: First Aid: Bleeding Prescriptions: No Action carvedilol 12.5 mg tablet 6.25 mg PO BID amlodipine 5 mg tablet 5 mg PO BID acetaminophen 500 MG tablet 500 mg PO DAILY cyanocobalamin (vitamin B-12) 500 MCG tablet 500 mcg PO DAILY@0800 pantoprazole 40 MG tablet 40 mg PO DAILY Patient Comments: Pt was taking Protonix when he was taking Prednisone. No longer taking Prednisone but not sure if he is to stop taking Protonix. nifedipine 60 MG tablet extended release 30 mg PO QHS Patient Comments: TAKE 1 TABLET BY MOUTH EVERY DAY aspirin 81 MG tablet,chewable 81 mg PO DAILY@0800 Qty: 0 0RF Rx Instructions: . Primary Care Provider: Bekah Washington Referrals: Bekah Washington MD [Primary Care Provider] - Activity Restrictions/Additional Instructions: Thank you for trusting us with your care today! Please return to the emergency department if your symptoms change or worsen. Specifically develop bleeding. Specifically if you develop lightheadedness, dizziness, fatigue, chest pain, syncope. Specifically develop redness, white- yellow discharge, increasing pain as these are signs of infection. Please follow with your primary care physician for further outpatient evaluation and management. Disposition Disposition: Home, Self Care Discharge Date/Time: 11/08/23 01:35
--- OUTSIDE RECORDS SUMMARY | 2023-11-08 01:02 | XMS RPT_ITS | CCD ---
Author Name Unknown Address [address] [place] [address] Organization [facility] Care Team Providers Care Global Professional Name Role Phone Preeti Emerson Unavailable Unavailable Preeti Emerson Unavailable Unavailable Kuchynski, Margarita Unavailable Unavailable Boshkos, Christopher Unavailable Unavailable Boshkos, Christopher Unavailable Unavailable Boshkos, Christopher Unavailable Unavailable Clavecilla, Flakito Unavailable Unavailable PROVIDER, UNKNOWN Unavailable Unavailable Kuchynski, Margarita Unavailable Unavailable JACKELINE Unavailable Unavailable PROVIDER, UNKNOWN Unavailable Unavailable Kuchynski, Margarita Unavailable Unavailable King Di Unavailable Unavailable PROVIDER, UNKNOWN Unavailable Unavailable Kuchynski, Margarita Unavailable Unavailable JACKELINE Unavailable Unavailable PROVIDER, UNKNOWN Unavailable Unavailable Kuchynski, Margarita Unavailable Unavailable Boshkos, Christopher Unavailable Unavailable Boshkos, Christopher Unavailable Unavailable Boshkos, Christopher Unavailable Unavailable Kuchynski, Margarita Unavailable Unavailable KIDNEY TRANSPLANT EDUCATION, NURSE Unavailable Unavailable Kuchynski, Margarita Unavailable Unavailable Sofia, Dayday Unavailable Unavailable Jittportillo, o[place] Unavailable Unavailable Margarita Shannon MD Unavailable Unavailable Kuchynski, Margarita Unavailable Unavailable Buffy Russo R Unavailable Unavailabl e Padmini Margarita Unavailable Unavailable Unavailable MARGARITA SHANNON Primary Care Unavailable GEORGI MENDOSA Attending Unavailable ERMELINDA EVERETT Referring Unavailable Margarita Shannon MD Primary Care Provider MARGARITA SHANNON Primary Care Unavailable RASHAD PIEDRA Referring Unavailable MARGARITA SHANNON Primary Care Unavailable RASHAD PIEDRA Attending Unavailable Medications Completed/Discontinued Medications Medication Drug Class(es) Dates Sig (Normalized) Sig (Original) amLODIPine 5 mg oral tablet (11 sources) Dihydropyridine Calcium Channel Yary Start: 02-10-2020 take 1 tablet by mouth once daily amLODIPine (NORVASC) 5 mg tablet Take 1 tablet by mouth once daily. 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] Chronic Chronic kidney disease (8 sources) Chronic kidney disease stage 5 on dialysis; Translations: [End stage renal disease] Chronic Coronary atherosclerosis and other heart disease (2 sources) Atherosclerotic heart disease of [place] coronary artery without angina pectoris; Translations: [Athscl heart disease of [place] coronary artery w/o ang pctrs] Onset: 06-14-2018 Chronic Deficiency and other anemia (8 sources) Anemia; Translations: [Anemia, unspecified] Episodic Disorders of lipid metabolism (8 sources) Mixed hyperlipidemia; Translations: [Mixed hyperlipidemia] Chronic Past or Other Problems Problem Classification Problem Date Documented Da te Episodic/Chronic Acute and unspecified renal failure (2 sources) Acute kidney failure, unspecified; Translations: [Acute kidney failure, unspecified] Onset: 07-03-2018 Episodic Coronary atherosclerosis and other heart disease (2 sources) Presence of aortocoronary bypass graft; Translations: [Presence of aortocoronary bypass graft] Onset: 06-14-2018 Episodic Crushing injury or internal injury (2 sources) Unspecified injury of unspecified kidney, initial encounter; Translations: [Unspecified injury of unspecified kidney, initial encounter] Onset: 06-29-2018 Episodic Fluid and electrolyte disorders (2 sources) Hypokalemia; Translations: [Hypokalemia] Onset: 06-14-2018 Episodic Mycoses (6 sources) Onychomycosis of toenails; Translations: [Dermatophytosis of nail] Resolved: 12-24-2016 Episodic Other aftercare (2 sources) group home (current) use of aspirin; Translations: [group home (current) use of aspirin] Onset: 06-14-2018 Episodic Other circulatory disease (8 sources) H/O: hypertension; Translations: [Personal history of other diseases of circulatory system] Resolved: 08-23-2019 Episodic Other connective tissue disease (6 sources) Soft tissue swelling; Translations: [Localized superficial swelling, mass, or lump] Resolved: 12-24-2016 Episodic Other non-traumatic joint disorders (6 sources) Shoulder pain; Translations: [Pain in joint, shoulder region] Resolved: 12-24-2016 Episodic Other skin disorders (6 sources) Mass of neck; Translations: [Swelling, mass, or lump in head and neck] Resolved: 12-24-2016 Episodic Residual codes; unclassified (2 sources) Localized edema; Translations: [Localized edema] Onset: 06-29-2018 Episodic Residual codes; unclassified (5 sources) Colonoscopy refused; Translations: [Surgical or other procedure not carried out because of patient's decision] Resolved: 04-19-2019 Episodic Results Test Name Value Interpretation Reference Range Facil ity Vital Signs Date Time Vital Sign Value Performing Clinician Geovany lity 07-12-2021 13:52-0400 Body mass index (BMI) [Ratio] 32.84 kg/m2 Margarita Currycecilleinderjit Work Phone: [facility] Work Phone: 07-12-2021 13:52-0400 Body surface area Derived from formula 2.25 m2 Margarita Currytristonmeenu Work Phone: [email or web address] [facility] Work Phone: 07-12-2021 13:52-0400 Body temperature 98 [degF] Margarita Caterinaibeth Work Phone: [facility] Work Phone: 07-12-2021 13:52-0400 Body weight 105.92 kg Margarita Padmini Work Phone: [place] [facility] Work Phone: 07-12-2021 13:52-0400 Diastolic blood pressure 117 mm[Hg] Margarita Shannon Work Phone: [employer] [facility] Work Phone: 07-12-2021 13:52-0400 Heart rate 75 /min Margarita Shannon Work Phone: [facility] Work Phone: 07-12-2021 13:52-0400 Respiratory rate 18 /min Margarita Shannon Work Phone: [facility] Work Phone: 07-12-2021 13:52-0400 SaO2% (BldA) [Mass fraction] 96 % Margarita Shannon Work Phone: [facility] Work Phone: 07-12-2021 13:52-0400 Systolic blood pressure 183 mm[Hg] Margarita Shannon Work Phone: [facility] Work Phone: 07-12-2021 13:52-0400 7 1 Margarita Shannon Work Phone: [facility] Work Phone: Encounters Encounter Date Encounter Type Care Provider Facility Start: 09-04-2023 End: 09-04-2023 ambulatory MARGARITA CURRYCECILLESHANMEENU Facility:[facility] Start: 09-04-2023 End: 09-04-2023 Patient encounter procedure Rashad Piedra DO Work Phone: [facility] Procedures Date Procedure Procedure Detail Performing Clinician Start: 09-04-2023 Arthrocentesis aspir &/inj major jt/bursa w/o us Rashad Piedra DO Work Phone: Start: 09-04-2023 Radex shoulder compl ete minimum 2 views Rashad Piedra DO Work Phone: Start: 06-27-2020 Ct abdomen & pelvis w/o contrast material Margarita Shannon Start: 06-27-2020 CT Cardiac Scoring Breana christine Shannon Start: 12-21-2019 Colonoscopy Rashad Artie dumont V, DO Work Phone: Arthroscopy of knee Margarita langston Cataract surgery Margarita daugherty MD Repair of umbilical hernia M edgar Shannon Plan of Treatment Date Care Activity Detail Author Start: 12-01-2024 Pneumococcal Vaccine: 65+ (3 - PPSV23 or PCV20) Pneumococcal Vaccine: 65+ (3 - PPSV23 or PCV20) [facility] Start: 07-10-2023 Covid-19 Vaccine () Covid-19 Vaccine () [facility] Start: 07-10-2023 Covid-19 Vaccine () Covid-19 Vaccine () [facility] Start: 07-10-2023 Influenza vaccination Influenza Vaccine (#1) [facility] Start: 11-09-2022 Advance Directive Discussion Advance Directive Discussion [facility] Start: 11-09-2022 Depression Assessment Depression Assessment [facility] Start: 10-11-2022 Diabetes Screening Diabetes Screening [facility] Start: 07-18-2022 Patient encounter procedure MCRANNUAL, Provider: Margarita Shannon, Status: Pen, Time: 2:15 PM [facility] Work Phone: Start: 01-10-2022 FUV, Provider: Margarita Shannon, Status: Pen, Time: 2:15 PM FUV, Provider: Margarita Shannon, Status: Pen, Time: 2:15 PM [employer] Work Phone: Start: 01-01-2021 Urine microalbumin profile DTaP,Tdap,Td Vaccine (2 - Td or Tdap) [facility] Start: 12-21-2020 Colonoscopy Colonoscopy [facility] Start: 12-21-2020 Colorectal Cancer Screening Colorectal Cancer Screening [facility] Start: 2015 Hepatitis B Vaccine (1 of 3 - Risk 3-dose series) Hepatitis B Vaccine (1 of 3 - Risk 3-dose series) [facility] Start: 2015 RSV Vaccine (1 - 1-dose 60+ series) RSV Vaccine (1 - 1-dose 60+ series) [facility] Start: 2010 Prostate Cancer Screening Discussion Prostate Cancer Screening Discussion [facility] Start: 2000 Cologuard (FIT-DNA) Cologuard (FIT-DNA) [facility] Start: [address] Colonography [facility] Start: 2000 Fecal Occult Blood Fecal Occult Blood [facility] Start: 2000 Sigmoidoscopy Sigmoidoscopy [facility] Start: 1990 Lipid 1996 panel - Serum or Plasma Lipid Screening [facility] Start: 1974 Hepatitis A Vaccine (1 of 2 - Risk 2-dose series) Hepatitis A Vaccine (1 of 2 - Risk 2-dose series) [facility] Start: 1974 Shingrix Vaccine (1 of 2) Shingrix Vaccine (1 of 2) [facility] Start: 1974 Urine microalbumin profile DTaP,Tdap,Td Vaccine (1 - Tdap) [facility] Start: 1973 Hepatitis C Screening Hepatitis C Screening [facility] Start: 1961 Pneumococcal Vaccine: 65+ (1 - PCV) Pneumococcal Vaccine: 65+ (1 - PCV) [facility] Start: 1955 Abdominal Aortic Aneurysm Screening Abdominal Aortic Aneurysm Screening [facility] End: 09-30-2024 XR SHOULDER GENERAL 3V OR MORE AP/TRUE AP/OTHER RIGHT XR SHOULDER GENERAL 3V OR MORE AP/TRUE AP/OTHER RIGHT Radiology Routine Right shoulder pain, unspecified chronicity 1 Occurrences starting 09/01/2023 until 09/30/2024 [facility] Work Phone: Immunizations Immunization Date Immunization Notes Care Provider Siva zamora 09-12-2021 Moderna COVID-19 Vac cine 100 MCG/0.5ML Intramuscular Suspension Margarita Shannon Work Phone: [facility] Work Phone: 02-08-2021 Moderna COVID-19 Vac cine 100 MCG/0.5ML Intramuscular Suspension Margarita Shannon Work Phone: [facility] Work Phone: 01-11-2021 Moderna COVID-19 Vac cine 100 MCG/0.5ML Intramuscular Suspension Margarita Shannon Work Phone: [employer] [facility] Work Phone: 01-11-2021 Pfizer-BioNTech COVI D-19 Vacc 30 MCG/0.3ML Intramuscular Suspension Margarita Shannon MD [facility] Work Phone: Payers Date Payer Category Payer Unknown 2020 Unknown [id number] 2006 Medicare 2003 Medicare [id number] 1955 Unknown [id number] [id number] 1955 Unknown [id number] [id number] [id number] 1955 Unknown [id number] 2.16.8 [id number] 1955 Unknown [id number] 2.16.8 [id number] 1955 Unknown [id number] 2.16.8 [id number] 1955 Unknown [id number] 2.16.8 [id number] 1955 Unknown [id number] [id number] Social History Date Type Detail Facility Start: 10-09-2021 End: 09-04-2023 Former tobacco use Former tobacco use [facility] Work Phone: Start: 10-09-2021 Tobacco smoking status NCIS Smokes tobacco daily [facility] History of tobacco use Cigarette Smoker [facility] Start: 10-09-2021 Tobacco use and exposure Smokeless tobacco non-user [facility] Start: 10-09-2021 End: 09-04-2023 Alcohol intake Lifetime non-drinker (finding) [facility] Start: 10-09-2021 End: 09-04-2023 Tobacco use panel [facility] National Score (1-100), lower number is lower risk Not on file [facility] Start: 1955 Sex Assigned At Not on file [facility] NEGATED: Highlighted row - - [facility] Work Phone: Functional Status Date Assessment Result Facility NEGATED: Highlighted row Functional performance Functional status health issues are not documented Disease QP-Ioavqnczuu-Wmazj r Work Phone: Mental Status Date Assessment Result Facility NEGATED: Highlighted row Cognitive function [Interpretation] Cognitive status health issues are not documented Disease VS-Xmmyilxlxl-Qzjjw r Work Phone: Clinical Notes 09-04-2023 Rashad Piedra V, DO - 09/04/2023 2:41 PM EDTRafferNy bright Ma M - 09/04/2023 2:01 PM EDFederica Patel RT(R) - 09/04/2023 1:40 PM EDT Note Date & Type Note Facility 09-04-2023 Note HNO ID: [id number] Author: Rashad Piedra V, DO Service: ? Author Type: Physician Type: Progress Notes Filed: 09/04/2023 3:12 PM Note Text: No referring provider defined for this encounter. Mr. Joe is a 67 year old right handed male that presents today complaining of shoulder problems on the right side for the last 1 month. He claims that there is no specific incident that brought on this pain. The pain is described as chronic located in the front and back of the shoulder. Patient states that his pain level is a number 7 on a scale of 1-10 He has had rheumatoid arthritis for many years. ALLERGIES: Patient has no known allergies. MEDICATIONS: Current Outpatient Medications Medication Sig calcium acetate,phosphat bind, (PHOSLO) 667 mg capsule TAKE 4 CAPSULES BY MOUTH THREE TIMES DAILY WITH MEALS amLODIPine (NORVASC) 5 mg tablet Take 1 tablet by mouth once daily. aspirin, enteric coated (ASPIRIN, ENTERIC COATED) 81 mg EC tablet Take 1 tablet by mouth once daily. carvedilol (COREG) 6.25 mg tablet Take 6.25 mg by mouth twice daily. No current facility-administered medications for this visit. MEDICAL HISTORY: No past medical history on file. SURGICAL HISTORY: No past surgical history on file. FAMILY HISTORY: No family history on file. SOCIAL HISTORY: Social History Tobacco Use Smoking status: Every Day Packs/day: .5 Types: Cigarettes Smokeless tobacco: Never Vaping Use Vaping Use: Never used Substance Use Topics Alcohol use: Never Drug use: Never PHYSICAL ASSESSMENT: ATROPHY: Yes, PAIN TO PALPATION: Yes, with palpable soft tissue mass over anterior shoulder ACTIVE ROM: Elevation: 100 Internal Rotation: 40 External Rotation: 30 ROTATOR CUFF STRENGTH: Abnormal 3/5 with positive drop arm RADIOGRAPH: Severe degenerative changes in the glenohumeral joint right shoulder ASSESSMENT: Rheumatoid arthritis with degenerative arthritis of the right shoulder PLAN: We discussed options for treatment. Patient states that he is not at all interested in pursuing surgical treatment options. He would like to try conservative measures, cortisone injection and therapeutic exercise. Large Joint Arthro/Inj: R shoulder joint Informed Consent Consent Obtained: Verbal [place] Protocol A moment to CARE was completed. SIGN IN TIME OUT 09/04/2023 2:41 PM The procedure site was prepped in the usual sterile fashion. Site: R shoulder joint Medications: 6 mg betamethasone acetate-betamethasone sodium phosphate 6 mg/mL Anesthetics: 4 mL lidocaine (PF) 10 mg/mL (1 %); 2 mL lidocaine (PF) 10 mg/mL (1 %); 2 mL BUPivacaine (PF) 0.5 % (5 mg/mL) Outcome: Tolerated well, no immediate complications Post-injection instructions were reviewed with the patient and the patient voiced understanding of these instructions. Rashad Piedra DO [facility] 09-04-2023 Note HNO ID: [id number] Author: Ny Sylvester Ma Service: ? Author Type: ? Type: Progress Notes Filed: 09/04/2023 3:12 PM Note Text: AMB ROOMING INTAKE FLOWSHEET DATA Risk Screening Do you have concerns about personal safety or safety in the home?: No Pain Pain Level: 7 Pain Location: Shoulder-Right Description: Sore Duration Amount of Time: 24 Duration Units: Hours Frequency: Continuous Intervention/Comfort measure: Medication Comments: Rhematoid Arthritis Patient here today for right shoulder pain x 1 month. He denies any injury. Gives history of RA. He has been taking tylenol in the morning and ibuprofen at night. He is left hand dominant. Does not work outside the home. New x-ray today at [facility]. [facility] 09-04-2023 Note HNO ID: [id number] Author: Federica Mai RT(R) Service: ? Author Type: Technologist Type: Progress Notes Filed: 09/04/2023 1:55 PM Note Text: Radiology Service Progress Note PATIENT NAME: Bindu Joe DATE OF SERVICE: September 04, 2023 TIME: 1:55 PM PATIENT IDENTITY VERIFICATION COMPLETED USING TWO (2) IDENTIFIERS: Name and Date of confirmed by patient verbally. FALL SCREENING: Has the patient had 2 falls in the last year or 1 fall with injury or currently using an Ambulatory Assistive Device (Walker, Cane, Wheelchair, Crutches, etc.)? 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 Mr. Joe is a 67 year old right handed male that presents today complaining of shoulder problems on the right side for the last 1 month. He claims that there is no specific incident that brought on this pain. The pain is described as chronic located in the front and back of the shoulder. Patient states that his pain level is a number 7 on a scale of 1-10 He has had rheumatoid arthritis for many years. ALLERGIES: Patient has no known allergies. MEDICATIONS: Current Outpatient Medications Medication Sig calcium acetate,phosphat bind, (PHOSLO) 667 mg capsule TAKE 4 CAPSULES BY MOUTH THREE TIMES DAILY WITH MEALS amLODIPine (NORVASC) 5 mg tablet Take 1 tablet by mouth once daily. aspirin, enteric coated (ASPIRIN, ENTERIC COATED) 81 mg EC tablet Take 1 tablet by mouth once daily. carvedilol (COREG) 6.25 mg tablet Take 6.25 mg by mouth twice daily. No current facility-administered medications for this visit. MEDICAL HISTORY: No past medical history on file. SURGICAL HISTORY: No past surgical history on file. FAMILY HISTORY: No family history on file. SOCIAL HISTORY: Social History Tobacco Use Smoking status: Every Day Packs/day: .5 Types: Cigarettes Smokeless tobacco: Never Vaping Use Vaping Use: Never used Substance Use Topics Alcohol use: Never Drug use: Never PHYSICAL ASSESSMENT: ATROPHY: Yes, PAIN TO PALPATION: Yes, with palpable soft tissue mass over anterior shoulder ACTIVE ROM: Elevation: 100 Internal Rotation: 40 External Rotation: 30 ROTATOR CUFF STRENGTH: Abnormal 3/5 with positive drop arm RADIOGRAPH: Severe degenerative changes in the glenohumeral joint right shoulder ASSESSMENT: Rheumatoid arthritis with degenerative arthritis of the right shoulder PLAN: We discussed options for treatment. Patient states that he is not at all interested in pursuing surgical treatment options. He would like to try conservative measures, cortisone injection and therapeutic exercise. Large Joint Arthro/Inj: R shoulder joint Informed Consent Consent Obtained: Verbal [place] Protocol A moment to CARE was completed. SIGN IN TIME OUT 09/04/2023 2:41 PM The procedure site was prepped in the usual sterile fashion. Site: R shoulder joint Medications: 6 mg betamethasone acetate-betamethasone sodium phosphate 6 mg/mL Anesthetics: 4 mL lidocaine (PF) 10 mg/mL (1 %); 2 mL lidocaine (PF) 10 mg/mL (1 %); 2 mL BUPivacaine (PF) 0.5 % (5 mg/mL) Outcome: Tolerated well, no immediate complications Post-injection instructions were reviewed with the patient and the patient voiced understanding of these instructions. Rashad Piedra DO AMB ROOMING INTAKE FLOWSHEET DATA Risk Screening Do you have concerns about personal safety or safety in the home?: No Pain Pain Level: 7 Pain Location: Shoulder-Right Description: Sore Duration Amount of Time: 24 Duration Units: Hours Frequency: Continuous Intervention/Comfort measure: Medication Comments: Rhematoid Arthritis Patient here today for right shoulder pain x 1 month. He denies any injury. Gives history of RA. He has been taking tylenol in the morning and ibuprofen at night. He is left hand dominant. Does not work outside the home. New x-ray today at [facility]. documented in this encounter [facility] 09-04-2023 History of Present illness Narrative Radiology Service Progress Note PATIENT NAME: Bindu Joe DATE OF SERVICE: September 04, 2023 TIME: 1:55 PM PATIENT IDENTITY VERIFICATION COMPLETED USING TWO (2) IDENTIFIERS: Name and Date of confirmed by patient verbally. FALL SCREENING: Has the patient had 2 falls in the last year or 1 fall with injury or currently using an Ambulatory Assistive Device (Walker, Cane, Wheelchair, Crutches, etc.)? 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 * Past Medical, Surgical and Family History: reviewed and updated in chart. * Interval History: Patient has not been hospitalized previously. * Medications and Supplements: Medications and supplements, including calcium and vitamins reviewed and updated in chart. * No, the patient is not using opioids. * Patient Self Assessment of Health Status: fair. * Tobacco use: User (recently restarted. ) * Alcohol use: Non-User * Illicit drug use: Non-User * Current diet: Heart Healthy Diet, does consume adequate fluids (on dialysis) and does consume caffeine. * Exercise Frequency: regularly. * Depression/Suicide Screening: . * During the past 2 weeks, the patient has not felt down, depressed or hopeless. * During the past 2 weeks, the patient has not felt little interest or pleasure in doing things. * Hearing Impairment: none. * Cognitive Impairment: No cognitive impairment observed. * Bathing: performs independently. * Dressing: performs independently. * Walking: performs independently. * Toileting: performs independently. * Feeding: performs independently. * Personal Hygiene: performs independently. * Bowels: continent. * Managing Finances: performs independently. * Shopping: performs independently. * Managing Medications: performs independently. * Housework / Basic Home Maintenance: performs independently. * Handling Transportation: performs independently. * Preparing Meals: performs independently. * Using the Telephone/ Communication Devices: performs independently. * Falls Risk Screening:. BINDU has not fallen in the last 6 months. * Home safety risk factors: none. * Advance directives:. Patient has no living will. * The patient presents for follow-up of primary hypertension. The patient states he has been stable with his blood pressure control since the last visit. Comorbid Illnesses: nephropathy. * Interval Events: getting dialysis 3x a week. Doing better overall. * Symptoms: Associated symptoms include no headache. * Home monitoring: The patient is not checking blood pressure at home. * Lifestyle: Diet: He consumes a diverse and healthy diet.Weight Issues: He does not have any weight concerns.Exercise: He does not exercise regularly. * Medications: the patient is adherent with his medication regimen. He denies medication side effects. * The patient states his rheumatoid arthritis has been stable since the last visit. * Interval Events: Doing exercises and doing better with less knee pain. * Symptoms: stable low back pain and swelling. * Associated Symptoms: no fatigue. * Activities: able to do activities of daily living with limitations, able to do housework with limitations and unable to work. * Medications: The patient is not currently on any medications for his rheumatoid arthritis. takes tylenol. [facility] Phone: Instructions* Name Dates Details Instructions not documented [facility] Phone: [facility] for referral (narrative)* Diagnostic Procedure Only (Routine) - Pending Review Specialty Diagnoses / Procedures Referred By Jennifer t Referred To Contact XR IMAGING Diagnoses Right shoulder pain, unspecified chronicity Procedures XR SHOULDER GENERAL 3V OR MORE AP/TRUE AP/OTHER RIGHT RADEX SHOULDER COMPLETE MINIMUM 2 VIEWS Rashad Piedra V, DO [address] [place] [address] [place] [address] Referral ID Status Reason Start Date Expiration Date Visits Requested Visits Authorized [id number] Pending Review Auto-Generat ed Referral 09/30/2024 1 1 [facility] for referral (narrative)* Diagnostic Procedure Only (Routine) - Closed Specialty Diagnoses / Procedures Referred By Jennifer t Referred To Contact XR IMAGING Diagnoses Right shoulder pain, unspecified chronicity Procedures XR SHOULDER GENERAL 3V OR MORE AP/TRUE AP/OTHER RIGHT RADEX SHOULDER COMPLETE MINIMUM 2 VIEWS Rashad Piedra V, DO [address] [place] [address] [place] [address] Referral ID Status Reason Start Date Expiration Date V isits Requested Visits Authorized [id number] Closed Auto-Generate d Referral 09/01/2023 09/30/2024 1 1 [facility] for visit Narrative* Diagnostic Procedure Only (Routine) - Closed Specialty Diagnoses / Procedures Referred By Contac t Referred To Contact XR IMAGING Diagnoses Right shoulder pain, unspecified chronicity Procedures XR SHOULDER GENERAL 3V OR MORE AP/TRUE AP/OTHER RIGHT RADEX SHOULDER COMPLETE MINIMUM 2 VIEWS Rashad Piedra V, DO [address] [place] [address] [place] [address] Referral ID Status Reason Start Date Expiration Date V isits Requested Visits Authorized [id number] Closed Auto-Generate d Referral 09/01/2023 09/30/2024 1 1 [facility] Summary Purpose Family History Unknown Family Member Name Dates Details Family history of diabetes m ellitus(V18.0, Z83.3) Comments:Family History Status:Active Family history of malignant neoplasm(V16.9, Z80.9) Comments:Family History Status:Active Family history of hypertensi on(V17.49, Z82.49) Comments:Family History Status:Active Family history of skin cance r(V16.8, Z80.8) Comments:Family History Status:Active Mother Name Dates Details Family history of myocardial infarction(V17.3, Z82.49) Status:Active Family history of (7 99.9, R99) Status:Active Unknown Family Member Name Dates Details Family history of diabetes m ellitus(V18.0, Z83.3) Comments:Family History Status:Active Family history of malignant neoplasm(V16.9, Z80.9) Comments:Family History Status:Active Family history of hypertensi on(V17.49, Z82.49) Comments:Family History Status:Active Family history of skin cance r(V16.8, Z80.8) Comments:Family History Status:Active Mother Name Dates Details Family history of myocardial infarction(V17.3, Z82.49) Status:Active Family history of (7 99.9, R99) Status:Active Unknown Family Member Name Dates Details Family history of diabetes m ellitus(V18.0, Z83.3) Comments:Family History Status:Active Family history of malignant neoplasm(V16.9, Z80.9) Comments:Family History Status:Active Family history of hypertensi on(V17.49, Z82.49) Comments:Family History Status:Active Family history of skin cance r(V16.8, Z80.8) Comments:Family History Status:Active Mother Name Dates Details Family history of myocardial infarction(V17.3, Z82.49) Status:Active Family history of (7 99.9, R99) Status:Active Unknown Family Member Name Dates Details Family history of skin cance r(V16.8, Z80.8) Comments:Family History Status:Active Family history of diabetes m ellitus(V18.0, Z83.3) Comments:Family History Status:Active Family history of malignant neoplasm(V16.9, Z80.9) Comments:Family History Status:Active Family history of hypertensi on(V17.49, Z82.49) Comments:Family History Status:Active Mother Name Dates Details Family history of myocardial infarction(V17.3, Z82.49) Status:Active Family history of (7 99.9, R99) Status:Active Unknown Family Member Name Dates Details Family history of skin cance r: Family History(V16.8, Z80.8) Status:Active : Mother Status:Active Family history of myocardial infarction: Mother(V17.3, Z82.49) Status:Active Family history of hypertensi on: Family History(V17.49, Z82.49) Status:Active Family history of malignant neoplasm: Family History(V16.9, Z80.9) Status:Active Family history of diabetes m ellitus: Family History(V18.0, Z83.3) Status:Active Unknown Family Member Name Dates Details Family history of diabetes m ellitus: Family History(V18.0, Z83.3) Status:Active Family history of malignant neoplasm: Family History(V16.9, Z80.9) Status:Active Family history of hypertensi on: Family History(V17.49, Z82.49) Status:Active Family history of myocardial infarction: Mother(V17.3, Z82.49) Status:Active : Mother Status:Active Family history of skin cance r: Family History(V16.8, Z80.8) Status:Active Unknown Family Member Name Dates Details Family history of diabetes m ellitus: Family History(V18.0, Z83.3) Status:Active Family history of malignant neoplasm: Family History(V16.9, Z80.9) Status:Active Family history of hypertensi on: Family History(V17.49, Z82.49) Status:Active Family history of myocardial infarction: Mother(V17.3, Z82.49) Status:Active : Mother Status:Active Family history of skin cance r: Family History(V16.8, Z80.8) Status:Active Unknown Family Member Name Dates Details Family history of diabetes m ellitus: Family History(V18.0, Z83.3) Status:Active Family history of malignant neoplasm: Family History(V16.9, Z80.9) Status:Active Family history of hypertensi on: Family History(V17.49, Z82.49) Status:Active Family history of myocardial infarction: Mother(V17.3, Z82.49) Status:Active : Mother Status:Active Family history of skin cance r: Family History(V16.8, Z80.8) Status:Active Advance Directives No Advanced Directives Records FoundNo Advanced Directives Records FoundNo Advanced Directives Records FoundNo Advanced Directives Records FoundNo Advanced Directives Records FoundNo Advanced Directives Records FoundNo Advanced Directives Records Found Chief Complaint Annual wellness check - RA follow-up Medications Administered Section Inactive Administered Medications - up to 3 most recent administrations Medication Order MAR Action Action Date Dose Rate Site betamethasone acetate-betamethasone sodium phosphate 6 mg injection (CELESTONE) 6 mg, Injection - FOR ORTHO USE ONLY, ONCE, 1 dose, Starting on Thu09/04/23 at 1441, Until Thu09/04/23 at 1441 Given 09/04/2023 2:41 PM EDT 6 mg Shoulder, Right BUPivacaine (PF) 0.5 % (5 mg/mL) 2 mL injection 2 mL, Injection - FOR ORTHO USE ONLY, ONCE, 1 dose, Starting on Thu09/04/23 at 1441, Until Thu09/04/23 at 1441 Given 09/04/2023 2:41 PM EDT 2 mL Shoulder, Right lidocaine (PF) 10 mg/mL (1 %) 2 mL injection (XYLOCAINE) 2 mL, Injection - FOR ORTHO USE ONLY, ONCE, 1 dose, Starting on Thu09/04/23 at 1441, Until Thu09/04/23 at 1441 Given 09/04/2023 2:41 PM EDT 2 mL Shoulder, Right lidocaine (PF) 10 mg/mL (1 %) 4 mL injection (XYLOCAINE) 4 mL, Injection - FOR ORTHO USE ONLY, ONCE, 1 dose, Starting on Thu09/04/23 at 1441, Until Thu09/04/23 at 1441 Given 09/04/2023 2:41 PM EDT 4 mL Shoulder, Right Additional Source Comments (unrecognized sect ion and content) No Status Records FoundNo Status Records FoundNo Status Records FoundNo Status Records FoundNo Status Records FoundNo Status Records FoundNo Status Records Found INFORMATION SOURCE (unrecogn ized section and content) DATE CREATED AUTHOR AUTHOR'S ORGANIZ ATION 11/03/2018 [facility] DATE CREATED AUTHOR AUTHOR'S ORGANIZ ATION 11/19/2018 [facility] DATE CREATED AUTHOR AUTHOR'S ORGANIZ ATION 06/03/2020 [facility] DATE CREATED AUTHOR AUTHOR'S ORGANIZ ATION 07/14/2021 [employer] DATE CREATED AUTHOR AUTHOR'S ORGANIZ ATION 12/10/2021 [facility] DATE CREATED AUTHOR AUTHOR'S ORGANIZ ATION 09/08/2023 [facility] Source Comments (unrecognize d section and content) In the event this informatio n is protected by the Federal Confidentiality of Alcohol and Drug Abuse Patient Records regulations: The Federal rules restrict any use of the information to criminally investigate or prosecute any alcohol or drug abuse patient.[facility] the event this information is protected by the Federal Confidentiality of Alcohol and Drug Abuse Patient Records regulations: The Federal rules restrict any use of the information to criminally investigate or prosecute any alcohol or drug abuse patient.[facility] the event this information is protected by the Federal Confidentiality of Alcohol and Drug Abuse Patient Records regulations: The Federal rules restrict any use of the information to criminally investigate or prosecute any alcohol or drug abuse patient.[facility] Care Teams (unrecognized sec tion and content) Global Professional Relationship Specialty Start Date End Date Margarita Shannon MD [address] [address] PCP - General 01/23/03 Reason for Visit (unrecogniz ed section and content) FOR RECORDS PERTAINING TO PATIENTS WHO ARE OR HAVE BEEN ENROLLED IN A CHEMICAL DEPENDENCY/SUBSTANCEABUSE PROGRAM, SOME INFORMATION MAY BE OMITTED. This clinical summary was aggregated from multiple sources. Caution should be exercised in using it in the provision of clinical care. This summary normalizes information from multiple sources, and as a consequence, information in this document may materially change the coding, format and clinical context of patient data. In addition, data may be omitted in some cases. CLINICAL DECISIONS SHOULD BE BASED ON THE PRIMARY CLINICAL RECORDS. [facility] [employer] [facility]. provides no warranty or guarantee of the accuracy or completeness of information in this document.
== END 2023-11-08 01:35 | disposition home or self-care (01) ==
PROVIDERS: Emergency Provider Emergency Medicine; PCP Internal Medicine; Visit Provider Emergency Medicine
DX: S09.93XA Unspecified injury of face, initial encounter (principal); Z99.2 Dependence on renal dialysis; N18.6 End stage renal disease; F17.210 Nicotine dependence, cigarettes, uncomplicated; X58.XXXA Exposure to other specified factors, initial encounter
CPT/HCPCS: 99282

== ENCOUNTER 2023-12-12 09:21 | Inpatient (IN) | payer MEDICARE, BC, SELFPAY ==
[2023-12-12] VITALS (10 sets, daily range): BP systolic 122–146; BP diastolic 73–89; PULSE 70–96; RESP 16–18; TEMP 36.4–37.1; O2SAT 95–100; BMI 30.8; BMI 30.4
--- NOTE | 2023-12-12 09:33 | EX.ED.DYSGE1 ---
HPI History of Present Illness Chief Complaint: Dizziness [facility] Medical History (Updated 12/12/23 @ 13:13 by Josefa Melton) Bursitis Cardiac disease Dialysis patient Hepatitis Kidney disease Kidney failure due to vascular disorder Migraines Problem with dialysis access Rectal bleeding Rheumatoid aortitis Rheumatoid vasculitis Smoker Subclavian aneurysm Home Medications acetaminophen 500 mg tablet 500 mg PO DAILY PAIN 11/21/19 [History Last Taken 12/12/23] cyanocobalamin (vitamin B-12) 500 mcg tablet 500 mcg PO DAILY@0800 supplement 11/21/19 [History Last Taken 12/02/19 08:00] nifedipine 60 mg tablet,extended release 30 mg PO QHS BLOOD PRESSURE 11/21/19 [History Last Taken 12/20/19 22:00] pantoprazole 40 mg tablet,delayed release 40 mg PO DAILY REFLUX 11/21/19 [History Last Taken 12/02/19 07:00] aspirin 81 mg chewable tablet 81 mg PO DAILY@0800 [employer] ##0 12/04/19 [Rx Last Taken 12/12/23] amlodipine 5 mg tablet 5 mg PO BID 08/24/23 [History Last Taken 12/12/23] calcium acetate(phosphat bind) 667 mg capsule 2,668 mg PO TID 12/12/23 [History Last Taken Unknown] carvedilol 6.25 mg tablet 6.25 mg PO Q12H 12/12/23 [History Last Taken 12/12/23] vitamin B complex-vitamin C-folic acid 0.8 mg tablet (Nephro-Christiano) 1 tab PO Q24H 12/12/23 [History Last Taken 12/12/23] Allergy/AdvReac Type Severity Reaction Status Date / Time No Known Allergies Allergy Verified 12/12/23 09:22 Family History (Updated 12/12/23 @ 14:[address] Mathew Vargas MD) Other Cancer Diabetes Heart disease Surgical History History of bicuspid aortic valve History of umbilical hernia Hx of arteriovenostomy for renal dialysis (~12/2019) S/P knee surgery s/p subclavian graft Status post insertion of dialysis catheter (~11/2019) Social History Smoking Status: Current every day smoker tobacco type: cigarettes alcohol intake: never EXAM Physical Exam Const Vital Signs: 12/12/23 09:22 12/12/23 09:42 12/12/23 10:21 Temperature 97.6 F L 97.6 F L Temperature Source Temporal Pulse Rate 96 77 Respiratory Rate 18 16 Respiratory Effort Normal Non-Labored Respiratory Pattern Normal Blood Pressure 133/80 H 131/78 H Blood Pressure Mean 97 95 Pulse Ox 98 97 Oxygen Delivery Method Room Air [facility] Narrative Medical decision making narrative: HISTORY OF PRESENT ILLNESS: 68-year-old male presents with lightheadedness and dizziness. He reports fatigue and skin pallor as well. THe Patient denies any bleeding diathesis (melena, hematochezia, hematemesis, hematuria) states symptoms are worse with exertion. Denies chest pain, shortness of breath, incoordination, focal weakness, slurred speech. Denies any blood thinner use. Denies any diarrhea, vomiting. Notes last dialysis session was on . States he typically has dialysis Thursday, and Thursday. States he did not go to dialysis today secondary to feeling fatigued and ill. REVIEW OF SYSTEMS: Pertinent positives: Lightheadedness/dizziness Pertinent negatives: Chest pain, focal weakness, slurred speech, incoordination, vomiting, diarrhea PHYSICAL EXAM: Nursing triage notes reviewed, Vital signs reviewed Constitutional: please see [facility] HENT: MMM, mucosal pallor Eyes: Pupils equal round and reactive to light, Extraocular muscles intact Neck: No stridor, no JVD, full neck ROM Lungs: Clear to auscultation, No wheezing or rales. No increased work of breathing, no conversational dyspnea, no accessory muscle use, no nasal flaring. No respiratory distress noted Heart: Regular rate and rhythm, No murmurs, No rubs and No gallops, 2+ distal pulses (radial, femoral, posterior tibial) in all extremities Abdomen: Soft, there is no tenderness, rigidity, rebound or guarding, no obvious peritoneal signs, no palpable pulsatile abdominal masses, no auscultated abdominal bruit : No CVAT Extremities: No edema, left upper extremity AV fistula palpable thrill Rectal: No hemorrhoids, noted dark stool Neuro: Alert and oriented x3, neuro exam at baseline, cranial nerves II through XII are intact. No pain with extraocular muscle movement. There is negative test of skew. 5 of 5 strength in upper and lower extremities in flexion extension. Intact sensation to light touch in upper and lower extremity dermatomes. No truncal or extremity ataxia. No dysdiadochokinesia. Normal gait. 2+ reflexes in upper and lower extremities. No meningeal signs. Negative Babinski. NIH of 0. Skin: Noted pallor MEDICAL DECISION MAKING: Chief Complaint: Lightheadedness/dizziness External records reviewed: Last ED visit on 11/08/2023 for bleeding. Factors affecting care: ESRD, GI bleed, GERD, hypertension, Social determinants of health: Tobacco abuse Consults: Internal Medicine (Dr. Vargas) MDM Narrative: Patient was initially hemodynamically stable, afebrile, nontoxic-appearing. Exam with pallor, no focal deficits, no focal cardiopulmonary maladies. Left upper extremity AV fistula with palpable thrill I considered the following differential diagnosis: Anemia, GI bleed, electrolyte disturbance, dehydration, ACS, arrhythmia, posterior circulation CVA I obtained a broad lab and imaging workup to further elucidate the etiology the patient complaints. ALL IMAGES (IF OBTAINED) HAVE BEEN PERSONALLY REVIEWED AND INTERPRETED BY MYSELF. CBC with no leukocytosis, noted significant anemia that is decreased from baseline, no thrombocytopenia EKG with normal sinus rhythm, normal axis, no intervals, no STEMI CMP with hyponatremia, no significant potassium issues, noted ESRD, no evidence of hepatobiliary issues Troponin elevated consistent with likely demand ischemia from anemia and end-stage renal disease. Had no chest pain or EKG changes to suggest STEMI CT scan of the head was negative for acute intracranial abnormality I have personally reviewed the patient's chest x-ray. Chest x-ray is unremarkable for pulmonary edema, pneumothorax, pneumonia or focal cardiopulmonary abnormality. Hemoccult blood testing is negative The synthesis of the patient's history, physical exam, labs images suggest evidence of severe anemia. His occult stool sample is negative for blood however I still suspect internal bleeding versus anemia of chronic disease as potential etiologies. He was typed and crossed for 2 units of packed red blood cells. Is consented verbally and in written form. To be admitted to medicine to undergo further transfusion and dialysis. Discussed with hospitalist (Dr. Vargas) who recommended med/surg. The patient and/or family, caregivers express understanding. The patient and/or family, caregivers agrees with the plan. Shared decision making: I will have a discussion with the patient and or visitors regarding risk/benefits of further testing or admission. They will be made aware of of the risk/benefits inherent in this decision they will be given the opportunity to voice understanding. Total critical care time today provided was at least 35 minutes. This excludes separately billable procedures. Critical care time (if documented) is secondary to the patient having high probability of clinically significant/life threatening deterioration in the patient's condition which required my urgent intervention. Impression: 1. Severe anemia 2. ESRD 3. Elevated Troponin Dispo: admit to PCU This note was generated with HASH dictation software. It may contain incorrect words, spelling, and punctuation that were not noted in review of the chart prior to signing. Lab Data Labs: Laboratory Results - last 24 hr 12/12/23 09:36 WBC 10.7 RBC 1.71 L Hgb 5.9 L* Hct 19.4 L MCV 113.5 H MCH 34.5 H MCHC 30.4 L RDW Std Deviation 66.2 H RDW Coeff of Brynn 16.7 H Plt Count 220 MPV 11.4 Immature Gran % (Auto) 1.000 H Neut % (Auto) 72.1 H Lymph % (Auto) 14.0 L [place] % (Auto) 10.5 H Eos % (Auto) 1.7 Baso % (Auto) 0.7 Absolute Neuts (auto) 7.7 Absolute Lymphs (auto) 1.50 Nucleated RBC % 0.3 Anisocytosis 2+ Sodium 135 L Potassium 4.6 Chloride 95 L Carbon Dioxide 27.0 Anion Gap 13 BUN 118 H* Creatinine 7.77 H* Estim Creat Clear Calc 10.98 Est GFR (MDRD) Af Amer 9 L Est GFR (MDRD) Non-Af 7 L BUN/Creatinine Ratio 15.2 Glucose 179 H Calcium 9.6 Iron 86 TIBC 249 L Iron Saturation 34.5 Ferritin 92 Total Bilirubin 0.30 Direct Bilirubin 0.07 AST 12 L ALT 12 L Alkaline Phosphatase 41 L Troponin I High Sens 186 H* Total Protein 6.3 L Albumin 3.0 L Globulin 3.3 Blood Type A POSITIVE Antibody Screen NEGATIVE Crossmatch See Detail Radiography Diagnostic Testing: Clinical Impression(s) from Imaging Studies Brain CT 12/12/23 09:46 IMPRESSION: Chronic involutional changes of the brain. Electronically Signed: Meliton Drew MD at 10:54 EST , Chest X-Ray 12/12/23 10:09 IMPRESSION: Degenerative changes, as described above. No demonstrated acute cardiopulmonary process. Electronically Signed: Meliton Drew MD at 11:04 EST , Discharge Plan Disposition Disposition: Acute Care Hospital [facility] Discharge Date/Time: 12/12/23 12:45
--- NOTE | 2023-12-12 09:46 | CT_ITS ---
STUDY: CT BRAIN WITHOUT CONTRAST REASON FOR EXAM: Male, 68 years old. Dizzy RADIATION DOSAGE (If Supplied By Facility): CTDIvol = ( 44.99 ) mGy, DLP = ( 829.85 ) mGycm TECHNIQUE: Transaxial CT imaging of the brain was performed without administration of intravenous contrast material. Individualized dose optimization techniques were used for this CT. COMPARISON: No relevant priors. FINDINGS: Normal soft tissue structures. Normal calvarium. There is mild cerebral atrophy with widening of the extra-axial spaces and ventricular dilatation. Normal white matter tracts of the cerebral hemispheres. Normal basal ganglia and thalami. Normal brainstem. Normal cerebellum. There is no intracranial hemorrhage. There are no findings of an acute ischemic infarction. Normal visualized paranasal sinuses. CT/Brain/Head without Contrast IMPRESSION: Chronic involutional changes of the brain. Electronically Signed: Meliton Drew MD at 10:54 EST ,
[2023-12-12 09:57] LABS: Absolute Neutrophil Count 7.7 X10^3/uL (2.0-7.7); Basophil# 0.08 X10^3/uL; Basophil% 0.7 % (0-1); Eosinophil# 0.18 X10^3/uL; Eosinophils% 1.7 % (0-5); Hematocrit 19.4 % (40-54); Hemoglobin 5.9 g/dL (13.0-16.5); Mean Corp Hgb Conc 30.4 g/dL (32-36); Mean Corpuscular Hgb 34.5 pg (27.0-32.0); Mean Corpuscular Volume 113.5 fL (80-94); Mean Platelet Vol. 11.4 fl (6.2-12.0); Monocyte# 1.13 X10^3/uL; Monocyte% 10.5 % (0-10); NRBC Flagged by Analyzer 0.3 % (0-5); Neutrophil # 7.73 X10^3/uL (2.7-7.7); Neutrophil % 72.1 % (47-70); POSITIVE COUNT YES; POSITIVE MORPHOLOGY YES; Platelet Count 220 K/mm3 (150-450); RBC Distribution Width CV 16.7 % (11.6-14.6); RBC Distribution Width SD 66.2 fl (35.1-43.9); Red Blood Count 1.71 M/mm3 (4.6-6.2); White Blood Count 10.7 K/mm3 (4.4-11.0)
--- NOTE | 2023-12-12 10:09 | RAD_ITS ---
STUDY: X-RAY CHEST REASON FOR EXAM: Male, 68 years old. Dizziness TECHNIQUE: PA and lateral views of the chest. COMPARISON: November 22, 2019 FINDINGS: There are monitoring devices. There are surgical clips overlying the right lung apex. The lungs are clear and expanded. There is no demonstrated pleural abnormality. Normal size heart. Normal mediastinum and cirilo. Normal visualized pulmonary arteries. There is atherosclerotic calcification of the aortic arch with tortuosity. There are diffuse degenerative changes of the visualized thoracic spine. Normal visualized ribs, clavicles, and shoulders. There is no demonstrated abnormality of the visualized soft tissue structures of the upper abdomen. RAD/Chest PA and Lateral IMPRESSION: Degenerative changes, as described above. No demonstrated acute cardiopulmonary process. Electronically Signed: Meliton Drew MD at 11:04 EST ,
[2023-12-12 10:12] LABS: Differential Indicated SCAN CRITERIA MET
[2023-12-12 10:27] LABS: AST(SGOT) 12 U/L (15-37); Alanine Aminotransfer ALT/SGPT 12 U/L (16-61); Alkaline Phosphatase 41 U/L (45-117); Anion Gap 13 (5-15); BUN 118 mg/dL (7-18); BUN/Creat Ratio 15.2 RATIO (10-20); Bilirubin, Direct 0.07 mg/dL (0.00-0.30); Calcium,Total 9.6 mg/dL (8.5-10.1); Chloride 95 mmol/L (98-107); Creatinine, Serum 7.77 mg/dL (0.70-1.30); EST Glomerular Filtration Rate 7 mL/min (>60); Est Glom Filt Rate - Afr Amer 9 mL/min (>60); Estimated Creatinine Clearance 10.98 ml/min; Globulin 3.3 g/dL (2.2-4.2); Glucose 179 mg/dL (74-106); Potassium 4.6 mmol/L (3.5-5.1); Protein, Total 6.3 g/dL (6.4-8.2); Sodium Level 135 mmol/L (136-145); Troponin-I HS 186 pg/mL (3.0-78.0)
[2023-12-12 10:40] LABS: Anisocytosis 2+
--- OUTSIDE RECORDS SUMMARY | 2023-12-12 10:47 | XMS RPT_ITS | CCD ---
Author Name Unknown Address [email or web address] [place] [address] Organization [facility] Care Team Providers Care Preform Machine Operator Name Role Phone Preeti Emerson Unavailable Unavailable [...] NURSE Unavailable Unavailable Kuchynski, Margarita Unavailable Unavailable Dayday Black Unavailable Unavailable Cesilia Balderrama Unavailable Unavailable Margarita Shannon MD Unavailable Unavailable Ernestoynski Margarita Unavailable Unavailable Buffy Russo Unavailable Unavailabl e Margarita Shannon Unavailable Unavailable Unavailable MARGARITA SHANNON Primary Care Unavailable GEORGI MENDOSA Attending Unavailable ERMELINDA EVERETT Referring Unavailable Margarita hSannon MD Primary Care Provider MARGARITA SHANNON Primary [...] disease (2 sources) Atherosclerotic heart disease of [place] coronary artery without angina pectoris; Translations: [Athscl heart disease of [place] coronary artery w/o ang pctrs] Onset: 06-14-2018 [...] Resolved: 12-24-2016 Episodic Other aftercare (2 sources) half-way (current) use of aspirin; 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] Onset: 06-14-2018 Episodic [...] Time Vital Sign Value Performing Clinician Geovany tinajero 07-12-2021 13:52-0400 Body mass index (BMI) [Ratio] 32.84 kg/m2 Margarita Aaronivis Work Phone: [facility] Work Phone: 07-12-2021 13:52-0400 Body surface area Derived from formula 2.25 m2 Margarita Padmini Work Phone: [facility] Work Phone: 07-12-2021 13:52-0400 Body temperature 98 [degF] Margarita Padmini Work Phone: [facility] Work Phone: 07-12-2021 13:52-0400 Body weight 105.92 kg Margarita Padmini Work Phone: [facility] Work Phone: 07-12-2021 13:52-0400 Diastolic blood pressure 117 mm[Hg] Margarita Shannon Work Phone: [employer] [facility] Work Phone: 07-12-2021 13:52-0400 Heart rate 75 /min Margarita Shannon Work Phone: [employer] [facility] Work Phone: 07-12-2021 13:52-0400 Respiratory rate 18 /min Margarita Shannon Work Phone: [employer] [facility] Work Phone: 07-12-2021 13:52-0400 SaO2% (BldA) [Mass fraction] 96 % Margarita Shannon Work Phone: [employer] [facility] Work Phone: 07-12-2021 13:52-0400 Systolic blood pressure 183 mm[Hg] Margarita Shannon Work Phone: [employer] [facility] Work Phone: 07-12-2021 13:52-0400 7 1 Margarita Shannon Work Phone: [employer] [facility] Work Phone: Encounters Encounter Date Encounter Type Care Provider Facility Start: 09-04-2023 End: 09-04-2023 ambulatory MARGARITA ERNESTOSHANHAKEEM Facility:[facility] Start: 09-04-2023 End: 09-04-2023 Patient encounter procedure Rashad Piedra DO Work Phone: [facility] [place] Procedures Date Procedure Procedure Detail Performing Clinician Start: 09-04-2023 Arthrocentesis aspir &/inj major jt/bursa w/o us Rashad Piedra DO Work Phone: Start: 09-04-2023 Radex shoulder compl ete minimum 2 views Rashad Piedra DO Work Phone: Start: 06-27-2020 Ct abdomen & pelvis w/o contrast material Margarita Shannon Start: 06-27-2020 CT Cardiac Scoring Breana Shannon Start: 12-21-2019 Colonoscopy Rashad Artie dumont V, DO Work Phone: Arthroscopy of knee Margarita langston Cataract surgery Margarita daugherty MD Repair of umbilical hernia M edgar Shannon Plan of Treatment Date Care Activity Detail Author Start: 12-01-2024 Pneumococcal Vaccine: 65+ (3 - PPSV23 or PCV20) Pneumococcal Vaccine: 65+ (3 - PPSV23 or PCV20) [facility] Start: 07-10-2023 Covid-19 Vaccine () Covid-19 Vaccine () [facility] Start: 07-10-2023 Covid-19 Vaccine () Covid-19 Vaccine () [facility] Start: 07-10-2023 Influenza vaccination Influenza Vaccine (#1) [facility] Start: 11-09-2022 Advance Directive Discussion Advance Directive Discussion [facility] Start: 11-09-2022 Depression Assessment Depression Assessment [facility] Start: 10-11-2022 Diabetes Screening Diabetes Screening [facility] Start: 07-18-2022 Patient encounter procedure MCRANNUAL, Provider: Margarita Shannon, Status: Pen, Time: 2:15 PM [facility] [facility] Work Phone: Start: 01-10-2022 FUV, Provider: Margarita Shannon, Status: Pen, Time: 2:15 PM FUV, Provider: Margarita Shannon, Status: Pen, Time: 2:15 PM [employer] [facility] Work Phone: Start: 01-01-2021 Urine microalbumin profile DTaP,Tdap,Td Vaccine (2 - Td or Tdap) [facility] Start: 12-21-2020 Colonoscopy Colonoscopy [facility] Start: 12-21-2020 Colorectal Cancer Screening Colorectal Cancer Screening [facility] Start: 2015 Hepatitis B Vaccine (1 of 3 - Risk 3-dose series) Hepatitis B Vaccine (1 of 3 - Risk 3-dose series) [facility] Start: 2015 RSV Vaccine (1 - 1-dose 60+ series) RSV Vaccine (1 - 1-dose 60+ series) [facility] Start: 2010 Prostate Cancer Screening Discussion Prostate Cancer Screening Discussion [facility] Start: 2000 Cologuard (FIT-DNA) Cologuard (FIT-DNA) [facility] Start: [address] Colonography [facility] Start: 2000 Fecal Occult Blood Fecal Occult Blood [facility] Start: 2000 Sigmoidoscopy Sigmoidoscopy [facility] Start: 1990 Lipid 1996 panel - Serum or Plasma Lipid Screening [facility] Start: 1974 Hepatitis A Vaccine (1 of 2 - Risk 2-dose series) Hepatitis A Vaccine (1 of 2 - Risk 2-dose series) [facility] Start: 1974 Shingrix Vaccine (1 of 2) Shingrix Vaccine (1 of 2) [facility] Start: 1974 Urine microalbumin profile DTaP,Tdap,Td Vaccine (1 - Tdap) [facility] Start: 1973 Hepatitis C Screening Hepatitis C Screening [facility] Start: 1961 Pneumococcal Vaccine: 65+ (1 - PCV) Pneumococcal Vaccine: 65+ (1 - PCV) [facility] Start: 1955 Abdominal Aortic Aneurysm Screening Abdominal Aortic Aneurysm Screening [facility] End: 09-30-2024 XR SHOULDER GENERAL 3V OR MORE AP/TRUE AP/OTHER RIGHT XR SHOULDER GENERAL 3V OR MORE AP/TRUE AP/OTHER RIGHT Radiology Routine Right shoulder pain, unspecified chronicity 1 Occurrences starting 09/01/2023 until 09/30/2024 [facility] Work Phone: Immunizations Immunization Date Immunization Notes Care Provider Siva zamroa 09-12-2021 Moderna COVID-19 Vac cine 100 MCG/0.5ML Intramuscular Suspension Margarita Shannon Work Phone: [facility] Work Phone: 02-08-2021 Moderna COVID-19 Vac cine 100 MCG/0.5ML Intramuscular Suspension Margarita Shannon Work Phone: [facility] Work Phone: 01-11-2021 Moderna COVID-19 Vac cine 100 MCG/0.5ML Intramuscular Suspension Margarita Shannon Work Phone: [facility] Work Phone: 01-11-2021 Pfizer-BioNTech COVI D-19 Vacc 30 MCG/0.3ML Intramuscular Suspension Margarita Shannon MD [facility] Work Phone: Payers Date Payer Category Payer Unknown 2020 Unknown [id number] 2006 Medicare 2003 Medicare [id number] 1955 Unknown [id number] [id number] 1955 Unknown [id number] 2.16.8 [id number] 1955 Unknown [id number] 2.16.8 [id number] 1955 Unknown [id number] 2.16.8 [id number] 1955 Unknown [id number] 2.16.8 [id number] 1955 Unknown [id number] 2.16.8 [id number] 1955 Unknown [id number] [id number] Social History Date Type Detail Facility Start: 10-09-2021 End: 09-04-2023 Former tobacco use Former tobacco use [facility] Work Phone: Start: 10-09-2021 Tobacco smoking status NHIS Smokes tobacco daily [facility] History of tobacco use Cigarette Smoker [facility] Start: 10-09-2021 Tobacco use and exposure Smokeless tobacco non-user [facility] Start: 10-09-2021 End: 09-04-2023 Alcohol intake Lifetime non-drinker (finding) [facility] Start: 10-09-2021 End: 09-04-2023 Tobacco use panel [facility] National Score (1-100), lower number is lower risk Not on file [facility] Start: 1955 Sex Assigned At Not on file [facility] NEGATED: Highlighted row - - [facility] Work Phone: Functional Status Date Assessment Result Facility NEGATED: Highlighted row Functional performance Functional status health issues are not documented Disease [facility] Work Phone: Mental Status Date Assessment Result Facility NEGATED: Highlighted row Cognitive function [Interpretation] Cognitive status health issues are not documented Disease [facility] Work Phone: Clinical Notes 09-04-2023 Rashad Piedra V, DO - 09/04/2023 2:41 PM EDTRaNy heller Ma - 09/04/2023 2:01 PM Federica Henderson RT(R) - 09/04/2023 1:40 PM EDT Note Date & Type Note Facility 09-04-2023 Note HNO ID: [id number] Author: Rashad Piedra V, DO Service: ? [...] shoulder joint Informed Consent Consent Obtained: Verbal [place] Protocol A moment to CARE was completed. [...] understanding of these instructions. Rashad Piedra DO [facility] 09-04-2023 Note HNO ID: [id number] Author: Ny Sylvester Ma Service: ? Author [...] outside the home. New x-ray today at [facility]. [facility] 09-04-2023 Note HNO ID: [id number] Author: Federica Mai RT(R) Service: ? Author [...] RT Aide(R) September 04, 2023 1:55 PM [facility] 09-04-2023 History of Present illness Narrative Associated [...] shoulder joint Informed Consent Consent Obtained: Verbal [place] Protocol A moment to CARE was completed. [...] outside the home. New x-ray today at [facility]. 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 takes tylenol. [employer] [facility] Work Phone: Instructions* Name Dates Details Instructions not documented -[facility] Work Phone: Reason for referral (narrative)* Diagnostic Procedure Only (Routine) - Pending Review Specialty Diagnoses / Procedures Referred By Jennifer sosa Referred To Contact XR IMAGING Diagnoses Right shoulder pain, unspecified chronicity Procedures XR SHOULDER GENERAL 3V OR MORE AP/TRUE AP/OTHER RIGHT RADEX SHOULDER COMPLETE MINIMUM 2 VIEWS Rashad Piedra V, DO [address] [place] [address] [place] [address] Referral ID Status Reason Start Date Expiration Date Visits Requested Visits Authorized [id number] Pending Review Auto-Generat ed Referral 09/30/2024 1 1 [facility] for referral (narrative)* Diagnostic Procedure Only (Routine) - Closed Specialty Diagnoses / Procedures Referred By Jennifer sosa Referred To Contact XR IMAGING Diagnoses Right shoulder pain, unspecified chronicity Procedures XR SHOULDER GENERAL 3V OR MORE AP/TRUE AP/OTHER RIGHT RADEX SHOULDER COMPLETE MINIMUM 2 VIEWS Rashad Piedra V, DO [address] [place] [address] [place] [address] Referral ID Status Reason Start Date Expiration Date V isits Requested Visits Authorized [id number] Closed Auto-Generate d Referral 09/01/2023 09/30/2024 1 1 [facility] for visit Narrative* Diagnostic Procedure Only (Routine) - Closed Specialty Diagnoses / Procedures Referred By Jennifer t Referred To Contact XR IMAGING Diagnoses Right shoulder pain, unspecified chronicity Procedures XR SHOULDER GENERAL 3V OR MORE AP/TRUE AP/OTHER RIGHT RADEX SHOULDER COMPLETE MINIMUM 2 VIEWS Rashad Piedra V DO [address] [place] [address] [place] [address] Referral ID Status Reason Start Date Expiration Date V isits Requested Visits Authorized [id number] Closed Auto-Generate d Referral 09/01/2023 09/30/2024 1 1 [facility] Summary Purpose Family History Unknown Family [...] DATE CREATED AUTHOR AUTHOR'S ORGANIZ ATION 11/03/2018 [facility] DATE CREATED AUTHOR AUTHOR'S ORGANIZ ATION 11/19/2018 [facility] DATE CREATED AUTHOR AUTHOR'S ORGANIZ ATION 06/03/2020 [facility] DATE CREATED AUTHOR AUTHOR'S ORGANIZ ATION 07/14/2021 [employer] DATE CREATED AUTHOR AUTHOR'S ORGANIZ ATION 12/10/2021 [facility] DATE CREATED AUTHOR AUTHOR'S ORGANIZ ATION 09/08/2023 [facility] Source Comments (unrecognize d section and content) In the event this informatio n is protected by the Federal Confidentiality of Alcohol and Drug Abuse Patient Records regulations: The Federal rules restrict any use of the information to criminally investigate or prosecute any alcohol or drug abuse patient.[facility] the event this information is protected by the Federal Confidentiality of Alcohol and Drug Abuse Patient Records regulations: The Federal rules restrict any use of the information to criminally investigate or prosecute any alcohol or drug abuse patient.[facility] Hospital[facility] the event this information is protected by the Federal Confidentiality of Alcohol and Drug Abuse Patient Records regulations: The Federal rules restrict any use of the information to criminally investigate or prosecute any alcohol or drug abuse patient.[facility] Care Teams (unrecognized sec tion and content) Preform Machine Operator Relationship Specialty Start Date End Date Margarita Shannon MD [address] [address] PCP - General 01/23/03 Reason for Visit [...] BE BASED ON THE PRIMARY CLINICAL RECORDS. [facility] [employer] [facility]. provides no warranty or guarantee of the accuracy or completeness of information in this document.
[2023-12-12 11:37] LABS: Ferritin 92 ng/mL (26-388); Iron 86 ug/dL (65-175); Iron Binding Capacity,Total 249 ug/dL (250-450); PERCENT IRON SATURATION 34.5 % (15.0-55.0)
--- OUTSIDE RECORDS SUMMARY | 2023-12-12 12:24 | XMS RPT_ITS | CCD ---
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] Onset: 06-14-2018 Episodic [...] [Ratio] 32.84 kg/m2 Margarita Aaronivis Work Phone: [facility] Work Phone: 07-12-2021 13:52-0400 Body surface area Derived from formula 2.25 m2 Margarita Padmini Work Phone: [facility] Work Phone: 07-12-2021 13:52-0400 Body temperature 98 [degF] Margarita Padmini Work Phone: [facility] Work Phone: 07-12-2021 13:52-0400 Body weight 105.92 kg Margarita Padmini Work Phone: [facility] Work Phone: 07-12-2021 13:52-0400 Diastolic blood pressure 117 mm[Hg] Margarita Shannon Work Phone: [facility] Work Phone: 07-12-2021 13:52-0400 Heart rate 75 /min Margarita Shannon Work Phone: [facility] Work Phone: 07-12-2021 13:52-0400 Respiratory rate 18 /min Margarita Shannon Work Phone: [facility] Work Phone: 07-12-2021 13:52-0400 SaO2% (BldA) [Mass fraction] 96 % Margarita Shannon Work Phone: [facility] Work Phone: 07-12-2021 13:52-0400 Systolic blood pressure 183 mm[Hg] Margarita Shannon Work Phone: [facility] Work Phone: 07-12-2021 13:52-0400 7 1 Margarita Shannon Work Phone: [facility] Work Phone: Encounters Encounter Date Encounter Type Care Provider Facility Start: 09-04-2023 End: 09-04-2023 ambulatory MARGARITA ERNESTOSHANHAKEEM Facility:[facility] Start: 09-04-2023 End: 09-04-2023 Patient encounter procedure Rashad Piedra DO Work Phone: [facility] Procedures Date Procedure Procedure Detail Performing Clinician [...] Arthroscopy of knee Margarita langston Cataract surgery Margraita daugherty MD Repair of umbilical hernia M edgar Shannon Plan of Treatment Date Care Activity Detail Author Start: 12-01-2024 Pneumococcal Vaccine: 65+ (3 - PPSV23 or PCV20) Pneumococcal Vaccine: 65+ (3 - PPSV23 or PCV20) [facility] Start: 07-10-2023 Covid-19 Vaccine () Covid-19 Vaccine () [facility] Start: 07-10-2023 Covid-19 Vaccine () Covid-19 Vaccine () [facility] Start: 07-10-2023 Influenza vaccination Influenza Vaccine (#1) [facility] Start: 11-09-2022 Advance Directive Discussion Advance Directive Discussion [facility] Start: 11-09-2022 Depression Assessment Depression Assessment [facility] Start: 10-11-2022 Diabetes Screening Diabetes Screening [facility] Start: 07-18-2022 Patient encounter procedure MCRANNUAL, Provider: Margarita Shannon, Status: Pen, Time: 2:15 PM [facility] Work Phone: Start: 01-10-2022 FUV, Provider: Margarita Shannon, Status: Pen, Time: 2:15 PM FUV, Provider: Margarita Shannon, Status: Pen, Time: 2:15 PM [facility] Work Phone: Start: 01-01-2021 Urine microalbumin profile DTaP,Tdap,Td Vaccine (2 - Td or Tdap) [facility] Start: 12-21-2020 Colonoscopy Colonoscopy [facility] Start: 12-21-2020 Colorectal Cancer Screening Colorectal Cancer Screening [facility] Start: 2015 Hepatitis B Vaccine (1 of 3 - Risk 3-dose series) Hepatitis B Vaccine (1 of 3 - Risk 3-dose series) [facility] Start: 2015 RSV Vaccine (1 - 1-dose 60+ series) RSV Vaccine (1 - 1-dose 60+ series) [facility] Start: 2010 Prostate Cancer Screening Discussion Prostate Cancer Screening Discussion [facility] Start: 2000 Cologuard (FIT-DNA) Cologuard (FIT-DNA) [facility] Start: [address] Colonography [facility] Start: 2000 Fecal Occult Blood Fecal Occult Blood [facility] Start: 2000 Sigmoidoscopy Sigmoidoscopy [facility] Start: 1990 Lipid 1996 panel - Serum or Plasma Lipid Screening [facility] Start: 1974 Hepatitis A Vaccine (1 of 2 - Risk 2-dose series) Hepatitis A Vaccine (1 of 2 - Risk 2-dose series) [facility] Start: 1974 Shingrix Vaccine (1 of 2) Shingrix Vaccine (1 of 2) [facility] Start: 1974 Urine microalbumin profile DTaP,Tdap,Td Vaccine (1 - Tdap) [facility] Start: 1973 Hepatitis C Screening Hepatitis C Screening [facility] Start: 1961 Pneumococcal Vaccine: 65+ (1 - PCV) Pneumococcal Vaccine: 65+ (1 - PCV) [facility] Start: 1955 Abdominal Aortic Aneurysm Screening Abdominal Aortic Aneurysm Screening [facility] End: 09-30-2024 XR SHOULDER GENERAL 3V OR MORE AP/TRUE AP/OTHER RIGHT XR SHOULDER GENERAL 3V OR MORE AP/TRUE AP/OTHER RIGHT Radiology Routine Right shoulder pain, unspecified chronicity 1 Occurrences starting 09/01/2023 until 09/30/2024 [facility] Work Phone: Immunizations Immunization Date Immunization Notes Care Provider Siva zamora 09-12-2021 Moderna COVID-19 Vac cine 100 MCG/0.5ML Intramuscular Suspension Margarita Shannon Work Phone: [facility] Work Phone: 02-08-2021 Moderna COVID-19 Vac cine 100 MCG/0.5ML Intramuscular Suspension Margarita Shannon Work Phone: [facility] Work Phone: 01-11-2021 Moderna COVID-19 Vac cine 100 MCG/0.5ML Intramuscular Suspension Margarita Shannon Work Phone: [facility] Work Phone: 01-11-2021 Pfizer-BioNTech COVI D-19 Vacc 30 MCG/0.3ML Intramuscular Suspension Margarita Shannon MD [facility] Work Phone: Payers Date Payer Category Payer Unknown 2020 Unknown [id number] 2006 Medicare 2003 Medicare [id number] 1955 Unknown [id number] [id number] 1955 Unknown [id number] 2.16.8 [id number] 1955 Unknown [id number] 2.16.8 [id number] 1955 Unknown [id number] 2.16.8 [id number] 1955 Unknown [id number] 2.16.8 [id number] 1955 Unknown [id number] 2.16.8 [id number] 1955 Unknown [id number] [id number] Social History Date Type Detail Facility Start: 10-09-2021 End: 09-04-2023 Former tobacco use Former tobacco use [facility] Work Phone: Start: 10-09-2021 Tobacco smoking status NHIS Smokes tobacco daily [facility] History of tobacco use Cigarette Smoker [facility] Start: 10-09-2021 Tobacco use and exposure Smokeless tobacco non-user [facility] Start: 10-09-2021 End: 09-04-2023 Alcohol intake Lifetime non-drinker (finding) [facility] Start: 10-09-2021 End: 09-04-2023 Tobacco use panel [facility] National Score (1-100), lower number is lower risk Not on file [facility] Start: 1955 Sex Assigned At Not on file [facility] NEGATED: Highlighted row - - [facility] Work Phone: Functional Status Date Assessment Result Facility NEGATED: Highlighted row Functional performance Functional status health issues are not documented Disease [facility] Work Phone: Mental Status Date Assessment Result Facility NEGATED: Highlighted row Cognitive function [Interpretation] Cognitive status health issues are not documented Disease [facility] Work Phone: Clinical Notes 09-04-2023 Rashad Piedra V, DO - 09/04/2023 2:41 PM EDTRaNy heller Ma - 09/04/2023 2:01 PM Federica Henderson RT(R) - 09/04/2023 1:40 PM EDT Note Date & Type Note Facility 09-04-2023 Note HNO ID: [id number] Author: Rashad Piedra V, DO Service: ? [...] shoulder joint Informed Consent Consent Obtained: Verbal Brea Protocol A moment to CARE was completed. [...] of these instructions. Rashad Piedra DO [facility] 09-04-2023 Note HNO ID: [id number] Author: Ny Sylvester Ma Service: ? Author [...] outside the home. New x-ray today at [facility]. [facility] 09-04-2023 Note HNO ID: [id number] Author: Federica Mai RT(R) Service: ? Author [...] Aide(R) September 04, 2023 1:55 PM [facility] 09-04-2023 History of Present illness [...] shoulder joint Informed Consent Consent Obtained: Verbal Brea Protocol A moment to CARE was completed. [...] outside the home. New x-ray today at [facility]. 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 takes tylenol. [facility] Work Phone: Instructions* Name Dates Details Instructions not documented -[facility] Work Phone: Reason for referral (narrative)* Diagnostic Procedure Only (Routine) - Pending Review Specialty Diagnoses / Procedures Referred By Jennifer sosa Referred To Contact XR IMAGING Diagnoses Right shoulder pain, unspecified chronicity Procedures XR SHOULDER GENERAL 3V OR MORE AP/TRUE AP/OTHER RIGHT RADEX SHOULDER COMPLETE MINIMUM 2 VIEWS Rashad Piedra V, DO [address] [place] [address] [place] [address] Referral ID Status Reason Start Date Expiration Date Visits Requested Visits Authorized [id number] Pending Review Auto-Generat ed Referral 09/30/2024 1 1 [facility] for referral (narrative)* Diagnostic Procedure Only (Routine) - Closed Specialty Diagnoses / Procedures Referred By Jennifer sosa Referred To Contact XR IMAGING Diagnoses Right shoulder pain, unspecified chronicity Procedures XR SHOULDER GENERAL 3V OR MORE AP/TRUE AP/OTHER RIGHT RADEX SHOULDER COMPLETE MINIMUM 2 VIEWS Rashad Piedra V, DO [address] [place] [address] [place] [address] Referral ID Status Reason Start Date Expiration Date V isits Requested Visits Authorized [id number] Closed Auto-Generate d Referral 09/01/2023 09/30/2024 1 1 [facility] for visit Narrative* Diagnostic Procedure Only (Routine) - Closed Specialty Diagnoses / Procedures Referred By Jennifer t Referred To Contact XR IMAGING Diagnoses Right shoulder pain, unspecified chronicity Procedures XR SHOULDER GENERAL 3V OR MORE AP/TRUE AP/OTHER RIGHT RADEX SHOULDER COMPLETE MINIMUM 2 VIEWS Rashad Piedra V DO [address] [place] [address] [place] [address] Referral ID Status Reason Start Date Expiration Date V isits Requested Visits Authorized [id number] Closed Auto-Generate d Referral 09/01/2023 09/30/2024 1 1 [facility] Summary Purpose Family History Unknown Family Member [...] DATE CREATED AUTHOR AUTHOR'S ORGANIZ ATION 11/03/2018 [facility] DATE CREATED AUTHOR AUTHOR'S ORGANIZ ATION 11/19/2018 [facility] DATE CREATED AUTHOR AUTHOR'S ORGANIZ ATION 06/03/2020 [facility] DATE CREATED AUTHOR AUTHOR'S ORGANIZ ATION 07/14/2021 [employer] DATE CREATED AUTHOR AUTHOR'S ORGANIZ ATION 12/10/2021 [facility] DATE CREATED AUTHOR AUTHOR'S ORGANIZ ATION 09/08/2023 [facility] Source Comments (unrecognize d section and content) In the event this informatio n is protected by the Federal Confidentiality of Alcohol and Drug Abuse Patient Records regulations: The Federal rules restrict any use of the information to criminally investigate or prosecute any alcohol or drug abuse patient.[facility] the event this information is protected by the Federal Confidentiality of Alcohol and Drug Abuse Patient Records regulations: The Federal rules restrict any use of the information to criminally investigate or prosecute any alcohol or drug abuse patient.[facility] the event this information is protected by the Federal Confidentiality of Alcohol and Drug Abuse Patient Records regulations: The Federal rules restrict any use of the information to criminally investigate or prosecute any alcohol or drug abuse patient.[facility] Care Teams (unrecognized sec tion and content) Shaper Setter Relationship Specialty Start Date End Date Margarita Shannon MD [address] [address] PCP - General 01/23/03 Reason for Visit [...] BE BASED ON THE PRIMARY CLINICAL RECORDS. [facility] [employer] [facility]. provides no warranty or guarantee of the accuracy or completeness of information in this document.
--- OUTSIDE RECORDS SUMMARY | 2023-12-12 12:35 | XMS RPT_ITS | CCD ---
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] Onset: 06-14-2018 Episodic [...] [Ratio] 32.84 kg/m2 Margarita Aaronivis Work Phone: [facility] Work Phone: 07-12-2021 13:52-0400 Body surface area Derived from formula 2.25 m2 Margarita Padmini Work Phone: [facility] Work Phone: 07-12-2021 13:52-0400 Body temperature 98 [degF] Margarita Padmini [facility] Phone: [facility] Work Phone: 07-12-2021 13:52-0400 Body weight 105.92 kg Margarita Padmini Work Phone: [facility] Work Phone: 07-12-2021 13:52-0400 Diastolic blood pressure 117 mm[Hg] Margarita Shannon Work Phone: [employer] [facility] Work Phone: 07-12-2021 13:52-0400 Heart rate 75 /min Margarita Shannon Work Phone: [employer] [facility] Work Phone: 07-12-2021 13:52-0400 Respiratory rate 18 /min Margarita Shannon Work Phone: [employer] [facility] Work Phone: 07-12-2021 13:52-0400 SaO2% (BldA) [Mass fraction] 96 % Margarita Shannon Work Phone: [employer] [facility] Work Phone: 07-12-2021 13:52-0400 Systolic blood pressure 183 mm[Hg] Margarita Shannon Work Phone: [employer] [facility] Work Phone: 07-12-2021 13:52-0400 7 1 Margarita Shannon Work Phone: [employer] [facility] Work Phone: Encounters Encounter Date Encounter Type Care Provider Facility Start: 09-04-2023 End: 09-04-2023 ambulatory MARGARITA ERNESTOSHANHAKEEM Facility:[facility] Start: 09-04-2023 End: 09-04-2023 Patient encounter procedure Rashad Piedra DO Work Phone: [facility] [place] Procedures Date Procedure Procedure Detail Performing Clinician [...] Vaccine: 65+ (3 - PPSV23 or PCV20) [facility] Start: 07-10-2023 Covid-19 Vaccine () Covid-19 Vaccine () [facility] Start: 07-10-2023 Covid-19 Vaccine () Covid-19 Vaccine () [facility] Start: 07-10-2023 Influenza vaccination Influenza Vaccine (#1) [facility] Start: 11-09-2022 Advance Directive Discussion Advance Directive Discussion [facility] Start: 11-09-2022 Depression Assessment Depression Assessment [facility] Start: 10-11-2022 Diabetes Screening Diabetes Screening [facility] Start: 07-18-2022 Patient encounter procedure MCRANNUAL, Provider: Margarita Shannon, Status: Pen, Time: 2:15 PM [facility] Work Phone: Start: 01-10-2022 FUV, Provider: Margarita Shannon, Status: Pen, Time: 2:15 PM FUV, Provider: Margarita Shannon, Status: Pen, Time: 2:15 PM [facility] Work Phone: Start: 01-01-2021 Urine microalbumin profile DTaP,Tdap,Td Vaccine (2 - Td or Tdap) [facility] Start: 12-21-2020 Colonoscopy Colonoscopy [facility] Start: 12-21-2020 Colorectal Cancer Screening Colorectal Cancer Screening [facility] Start: 2015 Hepatitis B Vaccine (1 of 3 - Risk 3-dose series) Hepatitis B Vaccine (1 of 3 - Risk 3-dose series) [facility] Start: 2015 RSV Vaccine (1 - 1-dose 60+ series) RSV Vaccine (1 - 1-dose 60+ series) [facility] Start: 2010 Prostate Cancer Screening Discussion Prostate Cancer Screening Discussion [facility] Start: 2000 Cologuard (FIT-DNA) Cologuard (FIT-DNA) [facility] Start: [address] Colonography [facility] Start: 2000 Fecal Occult Blood Fecal Occult Blood [facility] Start: 2000 Sigmoidoscopy Sigmoidoscopy [facility] Start: 1990 Lipid 1996 panel - Serum or Plasma Lipid Screening [facility] Start: 1974 Hepatitis A Vaccine (1 of 2 - Risk 2-dose series) Hepatitis A Vaccine (1 of 2 - Risk 2-dose series) [facility] Start: 1974 Shingrix Vaccine (1 of 2) Shingrix Vaccine (1 of 2) [facility] Start: 1974 Urine microalbumin profile DTaP,Tdap,Td Vaccine (1 - Tdap) [facility] Start: 1973 Hepatitis C Screening Hepatitis C Screening [facility] Start: 1961 Pneumococcal Vaccine: 65+ (1 - PCV) Pneumococcal Vaccine: 65+ (1 - PCV) [facility] Start: 1955 Abdominal Aortic Aneurysm Screening Abdominal Aortic Aneurysm Screening [facility] End: 09-30-2024 XR SHOULDER GENERAL 3V OR MORE AP/TRUE AP/OTHER RIGHT XR SHOULDER GENERAL 3V OR MORE AP/TRUE AP/OTHER RIGHT Radiology Routine Right shoulder pain, unspecified chronicity 1 Occurrences starting 09/01/2023 until 09/30/2024 [facility] Work Phone: Immunizations Immunization Date Immunization Notes Care Provider Siva zamora 09-12-2021 Moderna COVID-19 Vac cine 100 MCG/0.5ML Intramuscular Suspension Margarita Shannon Work Phone: [facility] Work Phone: 02-08-2021 Moderna COVID-19 Vac cine 100 MCG/0.5ML Intramuscular Suspension Margarita Shannon Work Phone: [facility] Work Phone: 01-11-2021 Moderna COVID-19 Vac cine 100 MCG/0.5ML Intramuscular Suspension Margarita Shannon Work Phone: [facility] Work Phone: 01-11-2021 Pfizer-BioNTech COVI D-19 Vacc 30 MCG/0.3ML Intramuscular Suspension Margarita Shannon MD [facility] Work Phone: Payers Date Payer Category Payer Unknown 2020 Unknown [id number] 2006 Medicare 2003 Medicare [id number] 1955 Unknown [id number] 1955 Unknown [id number] [id number] 1955 Unknown [id number] [id number] [id number] 1955 Unknown [id number] 2.16.8 [id number] 1955 Unknown [id number] 2.16.8 [id number] 1955 Unknown [id number] [id number] [id number] 1955 Unknown [id number] [id number] Social History Date Type Detail Facility Start: 10-09-2021 End: 09-04-2023 Former tobacco use Former tobacco use [facility] Work Phone: Start: 10-09-2021 Tobacco smoking status NHIS Smokes tobacco daily [facility] History of tobacco use Cigarette Smoker [facility] Start: 10-09-2021 Tobacco use and exposure Smokeless tobacco non-user [facility] Start: 10-09-2021 End: 09-04-2023 Alcohol intake Lifetime non-drinker (finding) [facility] Start: 10-09-2021 End: 09-04-2023 Tobacco use panel [facility] National Score (1-100), lower number is lower risk Not on file [facility] Start: 1955 Sex Assigned At Not on file [facility] NEGATED: Highlighted row - - [facility] Work Phone: Functional Status Date Assessment Result Facility NEGATED: Highlighted row Functional performance Functional status health issues are not documented Disease [facility] Work Phone: Mental Status Date Assessment Result Facility NEGATED: Highlighted row Cognitive function [Interpretation] Cognitive status health issues are not documented Disease [facility] Work Phone: Clinical Notes 09-04-2023 Rashad Piedra V, DO - 09/04/2023 2:41 PM EDTRaNy heller Ma - 09/04/2023 2:01 PM Federica Henderson RT(R) - 09/04/2023 1:40 PM EDT Note Date & Type Note Facility 09-04-2023 Note HNO ID: [id number] Author: Rashad Piedra V, DO Service: ? [...] shoulder joint Informed Consent Consent Obtained: Verbal Boelus Protocol A moment to CARE was completed. [...] understanding of these instructions. Rashad Piedra DO [facility] 09-04-2023 Note HNO ID: [id number] Author: Ny Sylvester Ma Service: ? Author [...] outside the home. New x-ray today at [facility]. [facility] 09-04-2023 Note HNO ID: [id number] Author: Federica Mai RT(R) Service: ? Author [...] RT Aide(R) September 04, 2023 1:55 PM [facility] 09-04-2023 History of Present illness [...] shoulder joint Informed Consent Consent Obtained: Verbal Boelus Protocol A moment to CARE was completed. [...] outside the home. New x-ray today at [facility]. 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 takes tylenol. [employer] [facility] Work Phone: Instructions* Name Dates Details Instructions not documented -[facility] [place] [facility] Work Phone: Reason for referral (narrative)* Diagnostic Procedure Only (Routine) - Pending Review Specialty Diagnoses / Procedures Referred By Jennifer sosa Referred To Contact XR IMAGING Diagnoses Right shoulder pain, unspecified chronicity Procedures XR SHOULDER GENERAL 3V OR MORE AP/TRUE AP/OTHER RIGHT RADEX SHOULDER COMPLETE MINIMUM 2 VIEWS Rasahd Piedra V, DO [address] [place] [address] [place] [address] Referral ID Status Reason Start Date Expiration Date Visits Requested Visits Authorized [id number] Pending Review Auto-Generat ed Referral 09/30/2024 1 1 [facility] for referral (narrative)* Diagnostic Procedure Only (Routine) - Closed Specialty Diagnoses / Procedures Referred By Jennifer sosa Referred To Contact XR IMAGING Diagnoses Right shoulder pain, unspecified chronicity Procedures XR SHOULDER GENERAL 3V OR MORE AP/TRUE AP/OTHER RIGHT RADEX SHOULDER COMPLETE MINIMUM 2 VIEWS Rashad Piedra V, DO [address] [place] [address] [place] [address] Referral ID Status Reason Start Date Expiration Date V isits Requested Visits Authorized [id number] Closed Auto-Generate d Referral 09/01/2023 09/30/2024 1 1 [facility] for visit Narrative* Diagnostic Procedure Only (Routine) - Closed Specialty Diagnoses / Procedures Referred By Jennifer t Referred To Contact XR IMAGING Diagnoses Right shoulder pain, unspecified chronicity Procedures XR SHOULDER GENERAL 3V OR MORE AP/TRUE AP/OTHER RIGHT RADEX SHOULDER COMPLETE MINIMUM 2 VIEWS Rashad Piedra V DO [address] [place] [address] [place] [address] Referral ID Status Reason Start Date Expiration Date V isits Requested Visits Authorized [id number] Closed Auto-Generate d Referral 09/01/2023 09/30/2024 1 1 [facility] Summary Purpose Family History Unknown Family [...] DATE CREATED AUTHOR AUTHOR'S ORGANIZ ATION 11/03/2018 [facility] DATE CREATED AUTHOR AUTHOR'S ORGANIZ ATION 11/19/2018 [facility] DATE CREATED AUTHOR AUTHOR'S ORGANIZ ATION 06/03/2020 [facility] DATE CREATED AUTHOR AUTHOR'S ORGANIZ ATION 07/14/2021 [employer] DATE CREATED AUTHOR AUTHOR'S ORGANIZ ATION 12/10/2021 [facility] DATE CREATED AUTHOR AUTHOR'S ORGANIZ ATION 09/08/2023 [facility] Source Comments (unrecognize d section and content) In the event this informatio n is protected by the Federal Confidentiality of Alcohol and Drug Abuse Patient Records regulations: The Federal rules restrict any use of the information to criminally investigate or prosecute any alcohol or drug abuse patient.[facility] the event this information is protected by the Federal Confidentiality of Alcohol and Drug Abuse Patient Records regulations: The Federal rules restrict any use of the information to criminally investigate or prosecute any alcohol or drug abuse patient.[facility] the event this information is protected by the Federal Confidentiality of Alcohol and Drug Abuse Patient Records regulations: The Federal rules restrict any use of the information to criminally investigate or prosecute any alcohol or drug abuse patient.[facility] Care Teams (unrecognized sec tion and content) Co Founder Relationship Specialty Start Date End Date Margarita Shannon MD [address] [address] PCP - General 01/23/03 Reason for Visit [...] BE BASED ON THE PRIMARY CLINICAL RECORDS. [facility] [employer] [facility]. provides no warranty or guarantee of the accuracy or completeness of information in this document.
--- NOTE | 2023-12-12 14:48 | HP.PCM.HOS_ITS ---
HPI - General General Date of Admission: 12/12/23 HPI Narrative BINDU DUMONT, is a 68 M who presents to the hospital with fatigue and dizziness consistent with his anemia of 5.9, he was supposed to go to dialysis today but did not feel well enough to go. He states that he has noticed dark stools but no bright red blood per rectum nor hematemesis. He does not take oral iron but he does have frequent iron infusions and is also given Epogen by nephrology during dialysis periodically. He does state that his last hemoglobin a few weeks ago was in the eights and a few weeks prior to that he was close to hemoglobin of 10 or 11 which is around his baseline. Currently unclear as to t he etiology as his stool occult was negative. Transfusions were started in the ER, he denies any fevers or chills or any abdominal pain. [facility] Medical History (Updated 12/12/23 @ 13:13 by Josefa Melton) Bursitis Cardiac disease Dialysis patient Hepatitis Kidney disease Kidney failure due to vascular disorder Migraines Problem with dialysis access Rectal bleeding Rheumatoid aortitis Rheumatoid vasculitis Smoker Subclavian aneurysm Home Medications acetaminophen 500 mg tablet 500 mg PO DAILY PAIN 11/21/19 [History Last Taken 12/12/23] cyanocobalamin (vitamin B-12) 500 mcg tablet 500 mcg PO DAILY@0800 supplement 11/21/19 [History Last Taken 12/02/19 08:00] nifedipine 60 mg tablet,extended release 30 mg PO QHS BLOOD PRESSURE 11/21/19 [History Last Taken 12/20/19 22:00] pantoprazole 40 mg tablet,delayed release 40 mg PO DAILY REFLUX 11/21/19 [History Last Taken 12/02/19 07:00] aspirin 81 mg chewable tablet 81 mg PO DAILY@0800 [facility] ##0 12/04/19 [Rx Last Taken 12/12/23] amlodipine 5 mg tablet 5 mg PO BID 08/24/23 [History Last Taken 12/12/23] calcium acetate(phosphat bind) 667 mg capsule 2,668 mg PO TID 12/12/23 [History Last Taken Unknown] carvedilol 6.25 mg tablet 6.25 mg PO Q12H 12/12/23 [History Last Taken 12/12/23] vitamin B complex-vitamin C-folic acid 0.8 mg tablet (Nephro-Christiano) 1 tab PO Q24H 12/12/23 [History Last Taken 12/12/23] Allergy/AdvReac Type Severity Reaction Status Date / Time No Known Allergies Allergy Verified 12/12/23 09:22 Family History (Updated 12/12/23 @ 14:[address] Mathew Vargas MD) Other Cancer Diabetes Heart disease Surgical History History of bicuspid aortic valve History of umbilical hernia Hx of arteriovenostomy for renal dialysis (~12/2019) S/P knee surgery s/p subclavian graft Status post insertion of dialysis catheter (~11/2019) Social History Smoking Status: Current every day smoker tobacco type: cigarettes alcohol intake: never ROS Constitutional Constitutional: Reports fatigue; Denies chills, fever(s) or malaise Eyes Eyes: Denies blurry vision ENT HEENT: Denies headache(s) or nasal discharge Cardiovascular Cardiovascular: Reports lightheadedness; Denies chest pain, dyspnea on exertion or syncope Respiratory/Chest Respiratory/Chest: Denies cough, shortness of breath at rest or shortness of breath with exertion Gastrointestinal Gastrointestinal: Denies constipation, diarrhea, nausea or vomiting Genitourinary Genitourinary: Denies dysuria Neurologic Neurologic: Denies focal weakness, numbness or tremor(s) Psychiatric Psychiatric: Denies anxiety or depression Vital Signs Vital Signs Vital Signs: 12/12/23 09:22 12/12/23 09:42 12/12/23 10:21 Temperature 97.6 F L 97.6 F L Temperature Source Temporal Pulse Rate 96 77 Respiratory Rate 18 16 Respiratory Effort Normal Non-Labored Respiratory Pattern Normal Blood Pressure 133/80 H 131/78 H Blood Pressure Mean 97 95 Blood Pressure Source Blood Pressure Position Blood Pressure Location Pulse Ox 98 97 Oxygen Delivery Method Room Air 12/12/23 11:38 12/12/23 11:53 12/12/23 12:53 Temperature 97.8 F 97.8 F 98.0 F Temperature Source Temporal Temporal Oral Pulse Rate 83 82 89 Respiratory Rate 16 16 18 Respiratory Effort Respiratory Pattern Blood Pressure 142/80 H 143/82 H 142/88 H Blood Pressure Mean 100 102 106 Blood Pressure Source Monitor Monitor Monitor Blood Pressure Position Semi-Fowlers Semi-Fowlers Semi-Fowlers Blood Pressure Location Right Arm Right Arm Right Forearm Pulse Ox 99 99 97 Oxygen Delivery Method Room Air Room Air Room Air 12/12/23 12:52 12/12/23 12:50 Temperature 98.0 F 98.5 F Temperature Source Temporal Temporal Pulse Rate 91 91 Respiratory Rate 18 18 Respiratory Effort Respiratory Pattern Blood Pressure 146/88 H 146/88 H Blood Pressure Mean 107 107 Blood Pressure Source Monitor Monitor Blood Pressure Position Semi-Fowlers Blood Pressure Location Right Arm Pulse Ox 100 100 Oxygen Delivery Method Room Air Room Air Weight Weight: 218 lb 7.649 oz Body Mass Index (BMI) 30.4 Physical Exam Narrative General: Alert, Oriented x3, Cooperative, No apparent distress HEENT: Atraumatic, PERRLA, EOMI, Normocephalic Oral: Moist Mucosa Neck: Supple, No JVD Lungs: Diminished, Normal air movement, No rhonchi, No wheeze, No rales Cardiovascular: Regular rate, Regular Rhythm, Normal S1, Normal S2, murmurs Abdomen: Soft, Non Tender, Non-Distended, No Hepato-splenomegaly Extremities: No edema, Capillary Refill Less than 3 Seconds Skin: No rashes, No breakdown Musculoskeletal: No Tenderness to Palpation of Joints or Extremities, left forearm fistula Neurological: No focal neurological deficits, Motor Exam 5/5 strength throughout, Sensory exam intact to light touch and pain Psych/Mental Status: Normal Affect, Appropriate Results Lab / Micro Data 12/12/23 09:36 12/12/23 09:36 Labs: Laboratory Results - last 24 hr 12/12/23 09:36: WBC 10.7, RBC 1.71 L, Hgb 5.9 L*, Hct 19.4 L, MCV 113.5 H, MCH 34.5 H, MCHC 30.4 L, RDW Std Deviation 66.2 H, RDW Coeff of Brynn 16.7 H, Plt Count 220, MPV 11.4, Immature Gran % (Auto) 1.000 H, Neut % (Auto) 72.1 H, Lymph % (Auto) 14.0 L, Williamson % (Auto) 10.5 H, Eos % (Auto) 1.7, Baso % (Auto) 0.7, Absolute Neuts (auto) 7.7, Absolute Lymphs (auto) 1.50, Nucleated RBC % 0.3, Anisocytosis 2+, Sodium 135 L, Potassium 4.6, Chloride 95 L, Carbon Dioxide 27.0, Anion Gap 13, BUN 118 H*, Creatinine 7.77 H*, Estim Creat Clear Calc 10.98, Est GFR (MDRD) Af Amer 9 L, Est GFR (MDRD) Non-Af 7 L, BUN/Creatinine Ratio 15.2, Glucose 179 H, Calcium 9.6, Iron 86, TIBC 249 L, Iron Saturation 34.5, Ferritin 92, Total Bilirubin 0.30, Direct Bilirubin 0.07, AST 12 L, ALT 12 L, Alkaline Phosphatase 41 L, Troponin I High Sens 186 H*, Total Protein 6.3 L, Albumin 3.0 L, Globulin 3.3, Blood Type A POSITIVE, Antibody Screen NEGATIVE, Crossmatch See Detail Micro: Microbiology 12/12/23 10:35 Stool Stool Occult Blood (LAMONTE) - Final Imaging Radiology Impression Brain CT 12/12/23 09:46 IMPRESSION: Chronic involutional changes of the brain. Electronically Signed: Meliton Drew MD at 10:54 EST , Chest X-Ray 12/12/23 10:09 IMPRESSION: Degenerative changes, as described above. No demonstrated acute cardiopulmonary process. Electronically Signed: Meliton Drew MD at 11:04 EST , Assessment & Plan Assessment/Plan (1) Anemia: PLAN: Plan 1. Acute anemia in the setting of anemia of chronic disease due to end-stage renal disease on dialysis ? Unclear as to his acute etiology currently we will place him on twice daily Protonix and consult GI ? Will place on a clear liquid diet ? Will transfuse 2 units and obtain iron studies ? 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 HTN ? Continue with his Norvasc but will hold his Coreg secondary to his anemia ? After transfusion if his blood pressures are still holding can resume his beta-ivelisse and his nifedipine ? Will monitor make adjustments as necessary DVT: SCDs 75 minutes was spent on direct patient care, including documentation as well as chart review and collaboration with colleagues Charges/Coding Visit Charges Inpatient E&M: 59968 Init Hosp L3
--- NOTE | 2023-12-12 16:03 | EX.PCM.CON.G ---
HPI Consult Data Date of Consult: 12/12/23 HPI Narrative Reason for Consultation: GI bleed HPI Narrative: BINDU DUMONT, is a 68 M who presents with worsening fatigue and weakness. He has a past medical history of end-stage renal disease on hemodialysis Thursday and history of chronic hepatitis C. I got a chance to know him approximately a year and a half ago for treatment of hepatitis C. He has no history of cirrhosis. He has no complications for hepatitis C except for end-stage renal disease. He has no history of vasculitis. He does not take any blood thinners on a daily basis except for aspirin. He says that his hemoglobin usually ranges around 11-1/2. Recently he was told that his hemoglobin was 8.3. When he came to the ER for evaluation he was determined to have a hemoglobin of 5.9. He denies any chest pain or shortness of breath. He has had a colonoscopy in the past. He has no history of polyps. He has no family history of GI malignancy. [facility] Medical History (Updated 12/12/23 @ 13:13 by Josefa Melton) Bursitis Cardiac disease Dialysis patient Hepatitis Kidney disease Kidney failure due to vascular disorder Migraines Problem with dialysis access Rectal bleeding Rheumatoid aortitis Rheumatoid vasculitis Smoker Subclavian aneurysm Home Medications acetaminophen 500 mg tablet 500 mg PO DAILY PAIN 11/21/19 [History Last Taken 12/12/23] cyanocobalamin (vitamin B-12) 500 mcg tablet 500 mcg PO DAILY@0800 supplement 11/21/19 [History Last Taken 12/02/19 08:00] nifedipine 60 mg tablet,extended release 30 mg PO QHS BLOOD PRESSURE 11/21/19 [History Last Taken 12/20/19 22:00] pantoprazole 40 mg tablet,delayed release 40 mg PO DAILY REFLUX 11/21/19 [History Last Taken 12/02/19 07:00] aspirin 81 mg chewable tablet 81 mg PO DAILY@0800 [facility] ##0 12/04/19 [Rx Last Taken 12/12/23] amlodipine 5 mg tablet 5 mg PO BID 08/24/23 [History Last Taken 12/12/23] calcium acetate(phosphat bind) 667 mg capsule 2,668 mg PO TID 12/12/23 [History Last Taken Unknown] carvedilol 6.25 mg tablet 6.25 mg PO Q12H 12/12/23 [History Last Taken 12/12/23] vitamin B complex-vitamin C-folic acid 0.8 mg tablet (Nephro-Christiano) 1 tab PO Q24H 12/12/23 [History Last Taken 12/12/23] Allergy/AdvReac Type Severity Reaction Status Date / Time No Known Allergies Allergy Verified 12/12/23 09:22 Family History (Updated 12/12/23 @ 14:[address] Mathew Vargas MD) Other Cancer Diabetes Heart disease Surgical History History of bicuspid aortic valve History of umbilical hernia Hx of arteriovenostomy for renal dialysis (~12/2019) S/P knee surgery s/p subclavian graft Status post insertion of dialysis catheter (~11/2019) Social History Smoking Status: Current every day smoker tobacco type: cigarettes alcohol intake: never ROS Constitutional Constitutional: Reports fatigue; Denies chills, fever(s) or malaise Eyes Eyes: Denies blurry vision ENT HEENT: Denies headache(s) or nasal discharge Cardiovascular Cardiovascular: Reports lightheadedness; Denies chest pain, dyspnea on exertion or syncope Respiratory/Chest Respiratory/Chest: Denies cough, shortness of breath at rest or shortness of breath with exertion Gastrointestinal Gastrointestinal: Denies constipation, diarrhea, nausea or vomiting Genitourinary Genitourinary: Denies dysuria Neurologic Neurologic: Denies focal weakness, numbness or tremor(s) Psychiatric Psychiatric: Denies anxiety or depression Physical Exam Narrative General: Alert, Oriented x3, Cooperative, No apparent distress HEENT: Atraumatic, PERRLA, EOMI, Normocephalic Oral: Moist Mucosa Neck: Supple, No JVD Lungs: Diminished, Normal air movement, No rhonchi, No wheeze, No rales Cardiovascular: Regular rate, Regular Rhythm, Normal S1, Normal S2, murmurs Abdomen: Soft, Non Tender, Non-Distended, No Hepato-splenomegaly Extremities: No edema, Capillary Refill Less than 3 Seconds Skin: No rashes, No breakdown Musculoskeletal: No Tenderness to Palpation of Joints or Extremities, left forearm fistula Neurological: No focal neurological deficits, Motor Exam 5/5 strength throughout, Sensory exam intact to light touch and pain Psych/Mental Status: Normal Affect, Appropriate Lab / Micro Data 12/12/23 09:36 12/12/23 09:36 Labs: Laboratory Results - last 24 hr 12/12/23 09:36: WBC 10.7, RBC 1.71 L, Hgb 5.9 L*, Hct 19.4 L, MCV 113.5 H, MCH 34.5 H, MCHC 30.4 L, RDW Std Deviation 66.2 H, RDW Coeff of Brynn 16.7 H, Plt Count 220, MPV 11.4, Immature Gran % (Auto) 1.000 H, Neut % (Auto) 72.1 H, Lymph % (Auto) 14.0 L, [place] % (Auto) 10.5 H, Eos % (Auto) 1.7, Baso % (Auto) 0.7, Absolute Neuts (auto) 7.7, Absolute Lymphs (auto) 1.50, Nucleated RBC % 0.3, Anisocytosis 2+, Sodium 135 L, Potassium 4.6, Chloride 95 L, Carbon Dioxide 27.0, Anion Gap 13, BUN 118 H*, Creatinine 7.77 H*, Estim Creat Clear Calc 10.98, Est GFR (MDRD) Af Amer 9 L, Est GFR (MDRD) Non-Af 7 L, BUN/Creatinine Ratio 15.2, Glucose 179 H, Calcium 9.6, Iron 86, TIBC 249 L, Iron Saturation 34.5, Ferritin 92, Total Bilirubin 0.30, Direct Bilirubin 0.07, AST 12 L, ALT 12 L, Alkaline Phosphatase 41 L, Troponin I High Sens 186 H*, Total Protein 6.3 L, Albumin 3.0 L, Globulin 3.3, Blood Type A POSITIVE, Antibody Screen NEGATIVE, Crossmatch See Detail Micro: Microbiology 12/12/23 10:35 Stool Stool Occult Blood (LAMONTE) - Final Imaging Radiology Impression Brain CT 12/12/23 09:46 IMPRESSION: Chronic involutional changes of the brain. Electronically Signed: Meliton Drew MD at 10:54 EST , Chest X-Ray 12/12/23 10:09 IMPRESSION: Degenerative changes, as described above. No demonstrated acute cardiopulmonary process. Electronically Signed: Meliton Drew MD at 11:04 EST , Assessment & Plan Assessment/Plan (1) Acute GI bleeding: PLAN: The differential diagnosis for GI bleed and a hemodialysis patient would be angiodysplasia, telangiectasia, upper GI bleed secondary to peptic ulcer disease. He will undergo an upper endoscopy on 12/14/2023. We will keep him n.p.o. past midnight. He can have full liquid diet at this time. We will keep an eye on his H&H. If he develops any bleeding prior to 12/14/2023 then we will do the upper endoscopy sooner. Recommend continue pantoprazole. Further recommendations to follow. Charges/Coding Visit Charges Inpatient E&M: 35814 Init Hosp L3
[2023-12-12] MEDS: 0.9% Saline Lock 10 ML Syringe IV (19:55)
[2023-12-12] MEDS: 0.9% Normal Saline (250mL Bag) 250 ML 15 ML IV (19:55)
[2023-12-12] MEDS: Pantoprazole Sodium 40 MG in 0.9% Normal Saline (100mL MB+) 100 ML 330 MG IV (19:56)
[2023-12-13] VITALS (15 sets, daily range): BP systolic 117–258; BP diastolic 66–93; PULSE 59–89; RESP 14–18; TEMP 36.5–36.7; O2SAT 94–99; BMI 30.5; BMI 29.6
[2023-12-13 05:50] LABS: Absolute Lymphocyte Count 1.87 X10^3/uL (0.83-4.51); Absolute Neutrophil Count 7.8 X10^3/uL (2.0-7.7); Basophil# 0.06 X10^3/uL; Basophil% 0.6 % (0-1); Eosinophil# 0.16 X10^3/uL; Eosinophils% 1.5 % (0-5); Hematocrit 21.8 % (40-54); Hemoglobin 7.1 g/dL (13.0-16.5); Lymphocyte # 1.87 X10^3/ul (0.83-4.51); Lymphocyte % 17.2 % (19-41); Mean Corp Hgb Conc 32.6 g/dL (32-36); Mean Corpuscular Hgb 32.3 pg (27.0-32.0); Mean Corpuscular Volume 99.1 fL (80-94); Mean Platelet Vol. 11.1 fl (6.2-12.0); Monocyte# 0.91 X10^3/uL; Monocyte% 8.4 % (0-10); NRBC Flagged by Analyzer 0.2 % (0-5); Neutrophil # 7.81 X10^3/uL (2.7-7.7); Neutrophil % 71.7 % (47-70); POSITIVE MORPHOLOGY YES; Platelet Count 187 K/mm3 (150-450); RBC Distribution Width CV 22.4 % (11.6-14.6); White Blood Count 10.9 K/mm3 (4.4-11.0)
[2023-12-13 06:18] LABS: Differential Indicated SCAN CRITERIA MET
[2023-12-13 06:36] LABS: Anisocytosis 1+
[2023-12-13 07:02] LABS: Anion Gap 13 (5-15); BUN 136 mg/dL (7-18); BUN/Creat Ratio 15.2 RATIO (10-20); Calcium,Total 9.4 mg/dL (8.5-10.1); Chloride 93 mmol/L (98-107); Creatinine, Serum 8.93 mg/dL (0.70-1.30); EST Glomerular Filtration Rate 6 mL/min (>60); Est Glom Filt Rate - Afr Amer 8 mL/min (>60); Glucose 95 mg/dL (74-106); Potassium 4.7 mmol/L (3.5-5.1); Sodium Level 132 mmol/L (136-145)
[2023-12-13] MEDS: Pantoprazole Sodium 40 MG in 0.9% Normal Saline (100mL MB+) 100 ML 330 MG IV ×2 (07:56→20:00)
[2023-12-13] MEDS: 0.9% Saline Lock 10 ML Syringe IV ×2 (07:56→20:01)
[2023-12-13] MEDS: amLODIPine 5 MG Tablet PO (07:57)
--- NOTE | 2023-12-13 10:06 | PCM.PN.HOSP ---
Subjective Subjective Still no obvious signs of GI bleeding Objective Data Objective Data Vital Signs: Vital Signs Temp Pulse Resp BP Pulse Ox O2 Del Method 98.1 F 89 18 137/88 H 97 Room Air 12/13/23 08:22 12/13/23 08:22 12/13/23 08:22 12/13/23 08:22 12/13/23 08:22 12/13/23 08:22 Oxygen Delivery Method Room Air Weight: 218 lb 7.649 oz Body Mass Index (BMI) 30.4 Intake & Output: Intake and Output for Last 24 Hours 12/12/23 12/13/23 12/14/23 03:59 03:59 03:59 Intake Total 861.25 / 861.25 Balance 861.25 / 861.25 Lab / Micro Data 12/13/23 05:25 12/13/23 05:25 Labs: Laboratory Results - last 24 hr 12/12/23 09:36: WBC 10.7, RBC 1.71 L, Hgb 5.9 L*, Hct 19.4 L, MCV 113.5 H, MCH 34.5 H, MCHC 30.4 L, RDW Std Deviation 66.2 H, RDW Coeff of Brynn 16.7 H, Plt Count 220, MPV 11.4, Immature Gran % (Auto) 1.000 H, Neut % (Auto) 72.1 H, Lymph % (Auto) 14.0 L, [place] % (Auto) 10.5 H, Eos % (Auto) 1.7, Baso % (Auto) 0.7, Absolute Neuts (auto) 7.7, Absolute Lymphs (auto) 1.50, Nucleated RBC % 0.3, Diff Path Review March foll, Anisocytosis 2+, Sodium 135 L, Potassium 4.6, Chloride 95 L, Carbon Dioxide 27.0, Anion Gap 13, BUN 118 H*, Creatinine 7.77 H*, Estim Creat Clear Calc 10.98, Est GFR (MDRD) Af Amer 9 L, Est GFR (MDRD) Non-Af 7 L, BUN/Creatinine Ratio 15.2, Glucose 179 H, Calcium 9.6, Iron 86, TIBC 249 L, Iron Saturation 34.5, Ferritin 92, Total Bilirubin 0.30, Direct Bilirubin 0.07, AST 12 L, ALT 12 L, Alkaline Phosphatase 41 L, Troponin I High Sens 186 H*, Total Protein 6.3 L, Albumin 3.0 L, Globulin 3.3, Blood Type A POSITIVE, Antibody Screen NEGATIVE, Crossmatch See Detail 12/13/23 05:25: WBC 10.9, RBC 2.20 L, Hgb 7.1 L, Hct 21.8 L, MCV 99.1 H D, MCH 32.3 H, MCHC 32.6 D, RDW Std Deviation 79.0 H, RDW Coeff of Brynn 22.4 H, Plt Count 187, MPV 11.1, Immature Gran % (Auto) 0.600, Neut % (Auto) 71.7 H, Lymph % (Auto) 17.2 L, [place] % (Auto) 8.4, Eos % (Auto) 1.5, Baso % (Auto) 0.6, Absolute Neuts (auto) 7.8 H, Absolute Lymphs (auto) 1.87, Nucleated RBC % 0.2, Anisocytosis 1+, Sodium 132 L, Potassium 4.7, Chloride 93 L, Carbon Dioxide 26.0, Anion Gap 13, BUN 136 H*, Creatinine 8.93 H*, Estim Creat Clear Calc 9.50, Est GFR (MDRD) Af Amer 8 L, Est GFR (MDRD) Non-Af 6 L, BUN/Creatinine Ratio 15.2, Glucose 95, Calcium 9.4 Micro: Microbiology 12/12/23 10:35 Stool Stool Occult Blood (LAMONTE) - Final Radiography Diagnostic Testing: Radiology Impression Brain CT 12/12/23 09:46 IMPRESSION: Chronic involutional changes of the brain. Electronically Signed: Meliton Drew MD at 10:54 EST , Chest X-Ray 12/12/23 10:09 IMPRESSION: Degenerative changes, as described above. No demonstrated acute cardiopulmonary process. Electronically Signed: Meliton Drew MD at 11:04 EST , Physical Exam Narrative General: Alert, Oriented x3, Cooperative, No apparent distress HEENT: Atraumatic, PERRLA, EOMI, Normocephalic Oral: Moist Mucosa Neck: Supple, No JVD Lungs: Diminished, Normal air movement, No rhonchi, No wheeze, No rales Cardiovascular: Regular rate, Regular Rhythm, Normal S1, Normal S2, murmurs Abdomen: Soft, Non Tender, Non-Distended, No Hepato-splenomegaly Extremities: No edema, Capillary Refill Less than 3 Seconds Skin: No rashes, No breakdown Musculoskeletal: No Tenderness to Palpation of Joints or Extremities, left forearm fistula Neurological: No focal neurological deficits, Motor Exam 5/5 strength throughout, Sensory exam intact to light touch and pain Psych/Mental Status: Normal Affect, Appropriate Assessment & Plan Assessment/Plan (1) Anemia: PLAN: Plan 1. Acute anemia in the setting of anemia of chronic disease due to end-stage renal disease on dialysis ? Unclear as to his acute etiology currently we will place him on twice daily Protonix and consult GI ? Will place on a full liquid diet ? Was given 2 units of blood on admission, iron studies do not show an iron deficiency anemia. He did not correct appropriately so we will recheck hemoglobin this afternoon ? 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 HTN ? Continue with his Norvasc but will hold his Coreg secondary to his anemia ? After transfusion if his blood pressures are still holding can resume his beta-ivelisse and his nifedipine ? Will monitor make adjustments as necessary DVT: SCDs Charges/Coding Visit Charges Inpatient E&M: 67463 Subs Hosp L2
[2023-12-13 12:31] LABS: Hemoglobin 6.9 g/dL (13.0-16.5)
[2023-12-13] MEDS: PureFlow B 2K Dialysis Soln 1 BAG 6 BAG PF (13:31)
[2023-12-13] MEDS: 0.9% Normal Saline 1,000 ML IV.SOLN. 1000 ML OPERA.SITE (13:32)
--- NOTE | 2023-12-13 17:32 | CON.PCM.RE_ITS ---
Assessment & Plan Assessment/Plan (1) ESRD (end stage renal disease) on dialysis: (2) Anemia: (3) GI bleed: PLAN: Plan Impression/Plan: The patient is a 68-year-old man with past history of ESRD, hypertension, and osteoarthritis. Patient presented to hospital on 12/12/2023 with fatigue and dizziness. He was found to have hemoglobin of 5.9 g/dL. The patient has received PRBC transfusion. The patient being evaluated for GI bleed. He is scheduled for EGD on 12/14/2023. Nephrology is following for ESRD. ESRD. The patient usually dialyzes at [facility] on TTS. He missed his outpatient dialysis yesterday because of presentation to the hospital. I arrange for dialysis and supervise dialysis treatment today. We used NxStage dialysis machine for IHD. Patient was dialyzed for 3 hours, and 3.25 L was removed. Patient should be okay for next dialysis on 12/15/2023. Acute blood loss anemia. Patient being evaluated for GI bleed. The patient has 1 month history of melena. He incorrectly attributed cause of melena to IV iron which she was getting on hemodialysis treatment. He is scheduled for EGD on 12/14/2023. Blood transfusion is as per hospital medicine service. HPI Consult Data Date of Consult: 12/13/23 HPI Narrative Reason for Consultation: ESRD HPI Narrative: The patient is a 68-year-old man with past history of ESRD, hypertension, and o steoarthritis. Patient presented to hospital on 12/12/2023 with fatigue and dizziness. The patient does report 1 month history of melena. He was found to have hemoglobin of 5.9 g/dL. The patient has been treated with blood transfusion and is on schedule for EGD with GI tomorrow on 12/14/2023. Nephrology is asked see the patient because of ESRD and need for dialysis management. The patient dialyzes at [facility] on TTS. He is followed there by my partner, Dr. Russo. However, the patient missed his scheduled dialysis on 12/12/2023 because of presentation to the [facility]. The patient was short of breath earlier today. However, dyspnea has improved after ultrafiltration. He denies current chest pain, shortness of breath at rest, or nausea. There has been no diarrhea. He has chronic lower extremity edema which is unchanged. [facility] Medical History (Updated 12/12/23 @ 13:13 by Josefa Melton) Bursitis Cardiac disease Dialysis patient Hepatitis Kidney disease Kidney failure due to vascular disorder Migraines Problem with dialysis access Rectal bleeding Rheumatoid aortitis Rheumatoid vasculitis Smoker Subclavian aneurysm Home Medications acetaminophen 500 mg tablet 500 mg PO DAILY PAIN 11/21/19 [History Last Taken 12/12/23] cyanocobalamin (vitamin B-12) 500 mcg tablet 500 mcg PO DAILY@0800 supplement 11/21/19 [History Last Taken 12/02/19 08:00] nifedipine 60 mg tablet,extended release 30 mg PO QHS BLOOD PRESSURE 11/21/19 [History Last Taken 12/20/19 22:00] pantoprazole 40 mg tablet,delayed release 40 mg PO DAILY REFLUX 11/21/19 [History Last Taken 12/02/19 07:00] aspirin 81 mg chewable tablet 81 mg PO DAILY@0800 [facility] ##0 12/04/19 [Rx Last Taken 12/12/23] amlodipine 5 mg tablet 5 mg PO BID 08/24/23 [History Last Taken 12/12/23] calcium acetate(phosphat bind) 667 mg capsule 2,668 mg PO TID 12/12/23 [History Last Taken Unknown] carvedilol 6.25 mg tablet 6.25 mg PO Q12H 12/12/23 [History Last Taken 12/12/23] vitamin B complex-vitamin C-folic acid 0.8 mg tablet (Nephro-Christiano) 1 tab PO Q24H 12/12/23 [History Last Taken 12/12/23] Allergy/AdvReac Type Severity Reaction Status Date / Time No Known Allergies Allergy Verified 12/12/23 09:22 Family History (Updated 12/12/23 @ 14:[address] Mathew Vargas MD) Other Cancer Diabetes Heart disease Surgical History History of bicuspid aortic valve History of umbilical hernia Hx of arteriovenostomy for renal dialysis (~12/2019) S/P knee surgery s/p subclavian graft Status post insertion of dialysis catheter (~11/2019) Social History Smoking Status: Current every day smoker tobacco type: cigarettes alcohol intake: never ROS ROS Narrative As per HPI, otherwise noncontributory. There is no hematochezia. Physical Exam Narrative General: Alert and oriented x3, NAD. HEENT: Normocephalic, atraumatic. Mucous membrane moist without erythema. PERRLA, EOMI. Hearing is intact. Neck: Supple, no JVD. Trachea is midline. No thyromegaly or lymphadenopathy. Cardiovascular: Normal S1, S2. No rubs, murmurs, or gallops. Respiratory: Decreased breath sound at bases. No wheezing, rhonchi, or rales. Abdomen: Normal bowel sounds, soft, nontender, no guarding or rebound, no organomegaly. Extremities: No clubbing, cyanosis, or edema. Musculoskeletal: Full passive range of motion, no joint swelling. Psychiatric: Normal mood and affect. Skin: Warm and dry, no rash. Neurologic: Cranial nerve II to XII are grossly intact. No focal neurologic deficits. Lab / Micro Data 12/13/23 12:24 12/13/23 05:25 Labs: Laboratory Results - last 24 hr 12/12/23 09:36: Diff Path Review Eneida shaffer, Crossmatch See Detail 12/13/23 05:25: WBC 10.9, RBC 2.20 L, Hgb 7.1 L, Hct 21.8 L, MCV 99.1 H D, MCH 32.3 H, MCHC 32.6 D, RDW Std Deviation 79.0 H, RDW Coeff of Brynn 22.4 H, Plt Count 187, MPV 11.1, Immature Gran % (Auto) 0.600, Neut % (Auto) 71.7 H, Lymph % (Auto) 17.2 L, [place] % (Auto) 8.4, Eos % (Auto) 1.5, Baso % (Auto) 0.6, Absolute Neuts (auto) 7.8 H, Absolute Lymphs (auto) 1.87, Nucleated RBC % 0.2, Anisocytosis 1+, Sodium 132 L, Potassium 4.7, Chloride 93 L, Carbon Dioxide 26.0, Anion Gap 13, BUN 136 H*, Creatinine 8.93 H*, Estim Creat Clear Calc 9.50, Est GFR (MDRD) Af Amer 8 L, Est GFR (MDRD) Non-Af 6 L, BUN/Creatinine Ratio 15.2, Glucose 95, Calcium 9.4 12/13/23 12:24: Hgb 6.9 L, Hct 21.0 L
[2023-12-14] VITALS (9 sets, daily range): BP systolic 80–138; BP diastolic 55–90; PULSE 73–85; RESP 15–16; TEMP 36.3–36.9; O2SAT 90–99
[2023-12-14 06:15] LABS: Absolute Lymphocyte Count 1.51 X10^3/uL (0.83-4.51); Absolute Neutrophil Count 6.3 X10^3/uL (2.0-7.7); Basophil# 0.05 X10^3/uL; Basophil% 0.6 % (0-1); Eosinophil# 0.15 X10^3/uL; Eosinophils% 1.7 % (0-5); Hemoglobin 8.3 g/dL (13.0-16.5); Lymphocyte # 1.51 X10^3/ul (0.83-4.51); Lymphocyte % 16.7 % (19-41); Mean Corp Hgb Conc 31.9 g/dL (32-36); Mean Corpuscular Hgb 31.9 pg (27.0-32.0); Mean Platelet Vol. 11.2 fl (6.2-12.0); Monocyte# 1.01 X10^3/uL; Monocyte% 11.2 % (0-10); NRBC Flagged by Analyzer 0 % (0-5); Neutrophil # 6.25 X10^3/uL (2.7-7.7); Neutrophil % 69.2 % (47-70); POSITIVE MORPHOLOGY YES; Platelet Count 200 K/mm3 (150-450); RBC Distribution Width CV 20.9 % (11.6-14.6); RBC Distribution Width SD 75.9 fl (35.1-43.9)
[2023-12-14 06:20] LABS: Differential Indicated SCAN CRITERIA MET
[2023-12-14 07:09] LABS: Anion Gap 9 (5-15); BUN 105 mg/dL (7-18); BUN/Creat Ratio 13.2 RATIO (10-20); Calcium,Total 9.2 mg/dL (8.5-10.1); Chloride 95 mmol/L (98-107); Creatinine, Serum 7.97 mg/dL (0.70-1.30); EST Glomerular Filtration Rate 7 mL/min (>60); Est Glom Filt Rate - Afr Amer 9 mL/min (>60); Estimated Creatinine Clearance 10.49 ml/min; Glucose 97 mg/dL (74-106); Potassium 4.4 mmol/L (3.5-5.1); Sodium Level 130 mmol/L (136-145)
--- NOTE | 2023-12-14 07:37 | PN.HOSP_ITS ---
Reason for Visit Reason for Visit: Diagnoses Anemia, unspecified (12/12/23) Gastrointestinal hemorrhage, unspecified (12/12/23) End stage renal disease (12/12/23) Dependence on renal dialysis (12/12/23) Subjective Subjective Patient is a 68-year-old gentleman with multiple comorbidities including end- stage renal disease on hemodialysis presented with progressive generalized weakness and fatigue and dizziness. Patient was found to have hemoglobin of 5.9. Admitted to regular nursing floor following transfusion with 2 unit PRBC Objective Data Objective Data Vital Signs: Vital Signs Temp Pulse Resp BP Pulse Ox O2 Del Method 98.1 F 82 16 122/74 H 95 Room Air 12/14/23 02:00 12/14/23 02:00 12/14/23 02:00 12/14/23 02:00 12/14/23 02:00 12/14/23 02:00 Oxygen Delivery Method Room Air Weight: 96 kg Body Mass Index (BMI) 29.6 Intake & Output: Intake and Output for Last 24 Hours 12/12/23 12/13/23 12/14/23 23:59 23:59 23:59 Intake Total 861.25 / 861.25 1270 / 1270 Output Total 3250 / 3250 0 / 0 Balance 861.25 / 861.25 -1979 / -1979 0 / 0 Lab / Micro Data 12/14/23 05:22 12/14/23 05:22 Labs: Laboratory Results - last 24 hr 12/12/23 09:36: Crossmatch See Detail 12/13/23 12:24: Hgb 6.9 L, Hct 21.0 L 12/14/23 05:22: WBC 9.0, RBC 2.60 L, Hgb 8.3 L, Hct 26.0 L, MCV 100.0 H, MCH 31.9, MCHC 31.9 L, RDW Std Deviation 75.9 H, RDW Coeff of Brynn 20.9 H, Plt Count 200, MPV 11.2, Immature Gran % (Auto) 0.600, Neut % (Auto) 69.2, Lymph % (Auto) 16.7 L, [place] % (Auto) 11.2 H, Eos % (Auto) 1.7, Baso % (Auto) 0.6, Absolute Neuts (auto) 6.3, Absolute Lymphs (auto) 1.51, Nucleated RBC % 0, Sodium 130 L, Potassium 4.4, Chloride 95 L, Carbon Dioxide 26.0, Anion Gap 9, BUN 105 H*, Creatinine 7.97 H*, Estim Creat Clear Calc 10.49, Est GFR (MDRD) Af Amer 9 L, Est GFR (MDRD) Non-Af 7 L, BUN/Creatinine Ratio 13.2, Glucose 97, Calcium 9.2 Micro: Microbiology 12/12/23 10:35 Stool Stool Occult Blood (LAMONTE) - Final Physical Exam Narrative GENERAL: cooperative HEENT: Atraumatic; normocephalic EYES; Anicteric, Normal Conjunctiva NECK; supple, normal thyroid, RESPIRATORY: Diminished to auscultation CARDIOVASCULAR: Regular S1 S2, GI: soft, normoactive bowel sounds, : No Renal angle tenderness; EXTREMITIES: No edema, no clubbing, MUSCULOSKELETAL: no muscle wasting NEURO: Awake; no lateralizing signs. SKIN: No Rash PSYCH; Flat affect Assessment & Plan Assessment/Plan (1) Anemia: PLAN: Plan Patient is a 68-year-old gentleman with multiple comorbidities including end- stage renal disease on hemodialysis presented with progressive generalized weakness and fatigue and dizziness. Patient was found to have hemoglobin of 5.9. Admitted to regular nursing floor following transfusion with 2 unit PRBC 1. Severe symptomatic anemia ? Patient was transfused with 2 unit PRBC consult placed to GI DrParas Ross plan is for patient to undergo endoscopic evaluation. 2. End-stage renal disease ? Patient on hemodialysis consult placed to nephrology for dialysis orders 3. Hypertension - Blood pressure controlled, home medications continued with dose adjustment as needed 4. GERD ? On PPI 5. DVT prophylaxis ? SCDs only given patient's significant anemia Time spent in the patient's overall evaluation,decision-making process, review of diagnostic data, adjustment of management, discussion with other providers, nursing nursing and ancillary staff involved in patient's care documentation, 50 Minutes Charges/Coding Visit Charges Inpatient E&M: 02704 [facility] Hosp L3
[2023-12-14] MEDS: Pantoprazole Sodium 40 MG in 0.9% Normal Saline (100mL MB+) 100 ML 330 MG IV ×2 (08:25→21:31)
[2023-12-14 09:34] LABS: Anisocytosis 2+; Differential Comment SCANNED; Macrocytosis 1+; Microcytosis 1+
[2023-12-14] MEDS: 0.9% Normal Saline (500mL Bag) 500 ML 15 ML IV (11:41)
--- NOTE | 2023-12-14 12:30 | EGD_PTH ---
PATHOLOGY RESULTS PATIENT: BINDU DUMONT LOC: MS3 U#:[id number] AGE/SX: 68/M ROOM: [facility] [place] RE12/12/[address]: Dr. Landon Carmen MD : 1955 BED: 1 DIS: 12/15/2023 SPEC #: [id number] RECD: 12/14/23 13:47 STATUS: DALE REQ #: [id number] SHELBY: 12/14/23 12:[address]: Cade Ross DEPT: SURGICAL PATHOLOGY RECD BY: Yasmin Luu ENTERED: 12/14/23 14:01 SP TYPE: EGD BIOPSY OTHR DR: MD Dr. Bekah Aguilar MD Dr. Nicholas F Kotsonis, MD Tissues: Duodenum, NOS Procedures: Surgery Specimen Level IV Comments: @ Ordering doctor for SUIV edited from to @ by CATHY at 12/14/23 1516 @ Submitting doctor edited from to @ by CATHY at 12/14/23 1516 HEADER OPERATION: EGD with biopsy PRE-OP DIAGNOSIS: Anemia TISSUE SUBMITTED: Duodenal biopsy MICROSCOPIC DIAGNOSIS Duodenal biopsy: Fragments of duodenal mucosa with focal congestion. CHAPO:luis miguel 12/15/2023 MICROSCOPIC DESCRIPTION Slides are reviewed. GROSS DESCRIPTION Received in fixative is one container labeled with the patient's name and designated duodenal biopsy. The specimen consists of two irregular fragments of light hermosillo soft tissue that in aggregate measure 0.8 x 0.4 x 0.1 cm. The specimen is totally submitted in one cassette. / CHAPO:luis miguel 12/14/2023 TC:5 CPT: 62880
--- NOTE | 2023-12-14 12:48 | OP.EGD_ITS ---
Patient Name: Barry Joe Procedure Date: 12/14/2023 12:28 PM Date of : 1955 Age: 68 Procedure: Upper GI endoscopy Indications: Iron deficiency anemia, Melena Providers: Cade Ross DO Medicines: Monitored Anesthesia Care Patient Profile: This is a 68 year old male. Refer to note in patient chart for documentation of history and physical. Patient has symptoms of acute epigastric abdominal pain. Complications: No immediate complications. Procedure: Pre-Anesthesia Assessment: - Prior to the procedure, a History and Physical was performed, and patient medications and allergies were reviewed. The risks and benefits of the procedure and the sedation options and risks were discussed with the patient. All questions were answered and informed consent was obtained. Patient identification and proposed procedure were verified by the physician in the pre-procedure area. Mental Status Examination: alert and oriented. Airway Examination: normal oropharyngeal airway and neck mobility. Respiratory Examination: clear to auscultation. CV Examination: normal. Prophylactic Antibiotics: The patient does not require prophylactic antibiotics. Prior Anticoagulants: The patient has taken no anticoagulant or antiplatelet agents. ASA Grade Assessment: III - A patient with severe systemic disease. After reviewing the risks and benefits, the patient was deemed in satisfactory condition to undergo the procedure. The anesthesia plan was to use monitored anesthesia care (MAC). Immediately prior to administration of medications, the patient was re-assessed for adequacy to receive sedatives. The heart rate, respiratory rate, oxygen saturations, blood pressure, adequacy of pulmonary ventilation, and response to care were monitored throughout the procedure. The physical status of the patient was re-assessed after the procedure. After obtaining informed consent, the endoscope was passed under direct vision. Throughout the procedure, the patient's blood pressure, pulse, and oxygen saturations were monitored continuously. The Endoscope was introduced through the mouth, and advanced to the second part of duodenum. The upper GI endoscopy was accomplished without difficulty. The patient tolerated the procedure well. Scope In: 12:40:24 PM Scope Out: 12:43:55 PM Total Procedure Duration Time 0 hours 3 minutes 31 seconds Findings: The examined esophagus was normal. A small hiatal hernia was present. No other significant abnormalities were identified in a careful examination of the stomach. Few oozing linear duodenal ulcers with pigmented material were found in the duodenal bulb and in the first portion of the duodenum. The largest lesion was 5 mm in largest dimension. Area was successfully injected with 5 mL of a 0.1 mg/mL solution of epinephrine for drug delivery. Coagulation for hemostasis using heater probe was successful. Estimated blood loss was minimal. Two non-bleeding superficial duodenal ulcers with no stigmata of bleeding were found in the duodenal bulb. The largest lesion was 3 mm in largest dimension. Biopsies were taken with a cold forceps for histology. Verification of patient identification for the specimen was done. Estimated blood loss was minimal. Impression: - Normal esophagus. - Small hiatal hernia. - Oozing duodenal ulcers with pigmented material. Injected. Treated with a heater probe. - Non-bleeding duodenal ulcers with no stigmata of bleeding. Biopsied. Recommendation: - [facility]. - Resume regular diet. - Continue present medications. - Use sucralfate suspension 1 gram PO BID for 13 days. Procedure Code(s): --- Professional --- 21815, 59, Esophagogastroduodenoscopy, flexible, transoral; with control of bleeding, any method 05893, Esophagogastroduodenoscopy, flexible, transoral; with biopsy, single or multiple 15627, 59,51, Esophagogastroduodenoscopy, flexible, transoral; with directed submucosal injection(s), any substance CPT copyright 2021 [employer]. All rights reserved. The codes documented in this report are preliminary and upon senior field service engineer review may be revised to meet current compliance requirements. Cade Ross DO 12/14/2023 12:48:24 PM This report has been signed electronically. Number of Addenda: 0 Note Initiated On: 12/14/2023 12:28 PM
--- NOTE | 2023-12-14 12:49 | OP.CCLET_ITS ---
12/14/2023 Bekah Washington Md Re : Upper GI endoscopy procedure for Barry Joe Sabino Washington This procedure was performed on Thursday, December 14, 2023. My impressions and recommendations are as follows: Impressions : - Normal esophagus. - Small hiatal hernia. - Oozing duodenal ulcers with pigmented material. Injected. Treated with a heater probe. - Non-bleeding duodenal ulcers with no stigmata of bleeding. Biopsied. Recommendations : - [facility]. - Resume regular diet. - Continue present medications. - Use sucralfate suspension 1 gram PO BID for 13 days. My findings are described in the full procedure note, which is enclosed. If I can be of further assistance, please feel free to contact me at . Sincerely, Cade Ross, 12/14/2023 12:48:24 PM This report has been signed electronically.
--- NOTE | 2023-12-14 14:40 | CASEMGMT ---
RN CM Face to Face with patient for initial transition planning/care coordination assessment. RN CM introduced self and role at [facility]. Patient sitting in chair, alert and oriented, at bedside. Patient willing to participate in assessment and is able to answer all questions appropriately. Care providers, pharmacy, and demographics verified. Patient wishes to discharge home, denies need for home health at this time. Patient states he has no further needs or concerns at this time. CM to follow for discharge planning needs that may arise. PCP: Padmini Specialists: Rafaela [employer] music director; Friend, GI; chris Piedra Preferred Pharmacy: [facility] Insurance: [employer] [place] Prescription Benefit: yes Living Will/HPOA: yes, Rohini Joe LNOK: Living Arrangements: Patient lives with in a story home with 2 steps to enter. Patient states he is independent Transportation: self, DME/HHC: [facility] denies DME in the home. No previous HHC or SNF. Patient attends HD at [facility] on [address]. Disposition Plan: Patient to discharge home with family support and follow-up plans in place. Ashlie JEROME, RN, CM
--- NOTE | 2023-12-14 15:30 | PN.RENAL_ITS ---
Subjective Subjective S/p endoscopy. No new complaints otherwise. Objective Data Objective Data Vital Signs: Vital Signs Temp Pulse Resp BP Pulse Ox O2 Del Method 98.3 F 73 16 110/55 L 97 Room Air 12/14/23 15:29 12/14/23 15:29 12/14/23 15:29 12/14/23 15:29 12/14/23 15:29 12/14/23 15:29 Oxygen Delivery Method Room Air Weight: 96 kg Body Mass Index (BMI) 29.6 Intake & Output: Intake and Output for Last 24 Hours 12/12/23 12/13/23 12/14/23 23:59 23:59 23:59 Intake Total 861.25 / 861.25 1270 / 1270 110 / 110 Output Total 3250 / 3250 0 / 0 Balance 861.25 / 861.25 -1979 / 110 / 110 Lab / Micro Data 12/14/23 05:22 12/14/23 05:22 Labs: Laboratory Results - last 24 hr 12/12/23 09:36: Crossmatch See Detail 12/14/23 05:22: WBC 9.0, RBC 2.60 L, Hgb 8.3 L, Hct 26.0 L, MCV 100.0 H, MCH 31.9, MCHC 31.9 L, RDW Std Deviation 75.9 H, RDW Coeff of Brynn 20.9 H, Plt Count 200, MPV 11.2, Immature Gran % (Auto) 0.600, Neut % (Auto) 69.2, Lymph % (Auto) 16.7 L, [place] % (Auto) 11.2 H, Eos % (Auto) 1.7, Baso % (Auto) 0.6, Absolute Neuts (auto) 6.3, Absolute Lymphs (auto) 1.51, Nucleated RBC % 0, Differential Comment SCANNED, Anisocytosis 2+, Microcytosis 1+, Macrocytosis 1+, Sodium 130 L , Potassium 4.4, Chloride 95 L, Carbon Dioxide 26.0, Anion Gap 9, BUN 105 H*, Creatinine 7.97 H*, Estim Creat Clear Calc 10.49, Est GFR (MDRD) Af Amer 9 L, Est GFR (MDRD) Non-Af 7 L, BUN/Creatinine Ratio 13.2, Glucose 97, Calcium 9.2 Micro: Microbiology 12/12/23 10:35 Stool Stool Occult Blood (LAMONTE) - Final Physical Exam Narrative General: Alert and oriented x3, NAD. HEENT: Normocephalic, atraumatic. Mucous membrane moist without erythema. PERRLA, EOMI. Hearing is intact. Neck: Supple, no JVD. Trachea is midline. No thyromegaly or lymphadenopathy. Cardiovascular: Normal S1, S2. No rubs, murmurs, or gallops. Respiratory: Decreased breath sound at bases. No wheezing, rhonchi, or rales. Abdomen: Normal bowel sounds, soft, nontender, no guarding or rebound, no organomegaly. Extremities: No clubbing, cyanosis, or edema. Musculoskeletal: Full passive range of motion, no joint swelling. Psychiatric: Normal mood and affect. Skin: Warm and dry, no rash. Neurologic: Cranial nerve II to XII are grossly intact. No focal neurologic deficits. Assessment & Plan Assessment/Plan (1) ESRD (end stage renal disease) on dialysis: (2) Anemia: (3) GI bleed: PLAN: Plan Impression/Plan: The patient is a 68-year-old man with past history of ESRD, hypertension, and osteoarthritis. Patient presented to hospital on 12/12/2023 with fatigue and dizziness. He was found to have hemoglobin of 5.9 g/dL. The patient has received PRBC transfusion. ESRD. The patient usually dialyzes at [facility] on TTS. Dialysis yesterday. Will continue dialysis as per schedule. Acute blood loss anemia. S/p PRBC. Endoscopy with bleeding ulcers
[2023-12-14] MEDS: Acetaminophen 325 MG Tablet 650 MG PO (17:20)
[2023-12-15] VITALS (12 sets, daily range): BP systolic 70–256; BP diastolic 51–105; PULSE 62–91; RESP 15–18; TEMP 36.6–36.8; O2SAT 95–98; BMI 29.6
[2023-12-15 06:55] LABS: Absolute Lymphocyte Count 0.85 X10^3/uL (0.83-4.51); Absolute Neutrophil Count 5.1 X10^3/uL (2.0-7.7); Basophil# 0.03 X10^3/uL; Basophil% 0.4 % (0-1); Eosinophil# 0.15 X10^3/uL; Eosinophils% 2.1 % (0-5); Hematocrit 24.8 % (40-54); Hemoglobin 7.8 g/dL (13.0-16.5); Lymphocyte # 0.85 X10^3/ul (0.83-4.51); Lymphocyte % 12.1 % (19-41); Mean Corp Hgb Conc 31.5 g/dL (32-36); Mean Corpuscular Hgb 31.5 pg (27.0-32.0); Mean Platelet Vol. 11.4 fl (6.2-12.0); Monocyte# 0.93 X10^3/uL; Monocyte% 13.2 % (0-10); NRBC Flagged by Analyzer 0 % (0-5); Neutrophil # 5.05 X10^3/uL (2.7-7.7); Neutrophil % 71.9 % (47-70); POSITIVE MORPHOLOGY YES; Platelet Count 177 K/mm3 (150-450); RBC Distribution Width CV 20.1 % (11.6-14.6); RBC Distribution Width SD 74.1 fl (35.1-43.9); Red Blood Count 2.48 M/mm3 (4.6-6.2)
[2023-12-15 07:05] LABS: Differential Indicated SCAN CRITERIA MET
[2023-12-15 07:28] LABS: Anisocytosis 2+; Differential Comment SCANNED
[2023-12-15 07:42] LABS: Anion Gap 12 (5-15); BUN 115 mg/dL (7-18); BUN/Creat Ratio 11.4 RATIO (10-20); Calcium,Total 8.5 mg/dL (8.5-10.1); Chloride 100 mmol/L (98-107); EST Glomerular Filtration Rate 6 mL/min (>60); Est Glom Filt Rate - Afr Amer 7 mL/min (>60); Estimated Creatinine Clearance 8.28 ml/min; Glucose 103 mg/dL (74-106); Magnesium 3.2 mg/dL (1.6-2.6); Phosphorus 8.4 mg/dL (2.5-4.9); Potassium 5.1 mmol/L (3.5-5.1); Sodium Level 135 mmol/L (136-145)
[2023-12-15] MEDS: 0.9% Normal Saline 1,000 ML IV.SOLN. 1000 ML OPERA.SITE (09:10)
[2023-12-15] MEDS: PureFlow B 2K Dialysis Soln 1 BAG 6 BAG PF (09:11)
[2023-12-15] MEDS: Acetaminophen 325 MG Tablet 650 MG PO (09:25)
--- NOTE | 2023-12-15 09:36 | PN.HOSP_ITS ---
Reason for Visit Reason for Visit: Diagnoses Anemia, unspecified (12/12/23) Gastrointestinal hemorrhage, unspecified (12/12/23) End stage renal disease (12/12/23) Dependence on renal dialysis (12/12/23) Subjective Subjective Patient seen EGD the day prior found the bleeding duodenal ulcer treated with a heater probe. Objective Data Objective Data Vital Signs: Vital Signs Temp Pulse Resp BP Pulse Ox O2 Del Method 98.2 F 84 18 152/105 H 97 Room Air 12/15/23 09:28 12/15/23 09:28 12/15/23 09:28 12/15/23 09:28 12/15/23 09:28 12/15/23 09:28 Oxygen Delivery Method Room Air Weight: 96 kg Body Mass Index (BMI) 29.6 Intake & Output: Intake and Output for Last 24 Hours 12/13/23 12/14/23 12/15/23 23:59 23:59 23:59 Intake Total 1270 / 1270 670 / 970 500 / 500 Output Total 3250 / 3250 0 / 0 Balance -1979 / -1979 670 / 970 500 / 500 Lab / Micro Data 12/15/23 06:13 12/15/23 06:13 Labs: Laboratory Results - last 24 hr 12/15/23 06:13: WBC 7.0, RBC 2.48 L, Hgb 7.8 L, Hct 24.8 L, MCV 100.0 H, MCH 31.5, MCHC 31.5 L, RDW Std Deviation 74.1 H, RDW Coeff of Brynn 20.1 H, Plt Count 177, MPV 11.4, Immature Gran % (Auto) 0.300, Neut % (Auto) 71.9 H, Lymph % (Auto) 12.1 L, [place] % (Auto) 13.2 H, Eos % (Auto) 2.1, Baso % (Auto) 0.4, Absolute Neuts (auto) 5.1, Absolute Lymphs (auto) 0.85, Nucleated RBC % 0, Differential Comment SCANNED, Anisocytosis 2+, Sodium 135 L, Potassium 5.1, Chloride 100, Carbon Dioxide 23.0, Anion Gap 12, BUN 115 H*, Creatinine 10.10 H* , Estim Creat Clear Calc 8.28, Est GFR (MDRD) Af Amer 7 L, Est GFR (MDRD) Non-Af 6 L, BUN/Creatinine Ratio 11.4, Glucose 103, Calcium 8.5, Phosphorus 8.4 H, Magnesium 3.2 H Micro: Microbiology 12/12/23 10:35 Stool Stool Occult Blood (LAMONTE) - Final Physical Exam Narrative GENERAL: cooperative HEENT: Atraumatic; normocephalic EYES; Anicteric, Normal Conjunctiva NECK; supple, normal thyroid, RESPIRATORY: Diminished to auscultation CARDIOVASCULAR: Regular S1 S2, GI: soft, normoactive bowel sounds, : No Renal angle tenderness; EXTREMITIES: No edema, no clubbing, MUSCULOSKELETAL: no muscle wasting NEURO: Awake; no lateralizing signs. SKIN: No Rash PSYCH; Flat affect Assessment & Plan Assessment/Plan (1) Anemia: PLAN: Plan Patient is a 68-year-old gentleman with multiple comorbidities including end- stage renal disease on hemodialysis presented with progressive generalized weakness and fatigue and dizziness. Patient was found to have hemoglobin of 5.9. Admitted to regular nursing floor following transfusion with 2 unit PRBC 1. Severe symptomatic anemia ? Patient was transfused with 2 unit PRBC consult placed to GI DrParas Ross plan is for patient to undergo endoscopic evaluation. 12/15/2023; patient underwent EGD on 12/14/2019 for results and recommendations as below Impressions : - Normal esophagus. - Small hiatal hernia. - Oozing duodenal ulcers with pigmented material. Injected. Treated with a heater probe. - Non-bleeding duodenal ulcers with no stigmata of bleeding. Biopsied. Recommendations : - [facility]. - Resume regular diet. - Continue present medications. - Use sucralfate suspension 1 gram PO BID for 13 days. 2. End-stage renal disease ? Patient on hemodialysis consult placed to nephrology for dialysis orders 3. Hypertension - Blood pressure controlled, home medications continued with dose adjustment as needed 4. GERD ? On PPI 5. DVT prophylaxis ? SCDs only given patient's significant anemia Time spent in the patient's overall evaluation,decision-making process, review of diagnostic data, adjustment of management, discussion with other providers, nursing nursing and ancillary staff involved in patient's care documentation, 35 Minutes
--- NOTE | 2023-12-15 09:41 | PCM.DC.SUM ---
Providers Date of Admission: 12/12/23 Date of Discharge: 12/15/23 Primary Care Physician: Dr. Bekah Washington MD Consultations 12/12/23 12:51 Consult: Gastroenterology Routine Consulting Provider: [facility] Reason for Consult: ? GI bleed EMERGENT Consult: No Notified: No Date Notified: 12/12/23 Time Notified: 11:19 12/12/23 12:55 Consult: Nephrology Routine Consulting Provider: Hanh Russo Reason for Consult: Dialysis EMERGENT Consult: No Notified: No Date Notified: 12/12/23 Time Notified: 12:55 Reason For Visit: LIGHTHEADED Diagnosis Discharge Diagnosis (1) Anemia: Status: Chronic Code(s): D64.9 - Anemia, unspecified Plan Patient is a 68-year-old gentleman with multiple comorbidities including end-stage renal disease on hemodialysis presented with progressive generalized weakness and fatigue and dizziness. Patient was found to have hemoglobin of 5.9. Admitted to regular nursing floor following transfusion with 2 unit PRBC 1. Severe symptomatic anemia ? Patient was transfused with 2 unit PRBC consult placed to GI Dr. Ross plan is for patient to undergo endoscopic evaluation. 12/15/2023; patient underwent EGD on 12/14/2019 for results and recommendations as below Impressions : - Normal esophagus. - Small hiatal hernia. - Oozing duodenal ulcers with pigmented material. Injected. Treated with a heater probe. - Non-bleeding duodenal ulcers with no stigmata of bleeding. Biopsied. Recommendations : - [facility]. - Resume regular diet. - Continue present medications. - Use sucralfate suspension 1 gram PO BID for 13 days. 2. End-stage renal disease ? Patient on hemodialysis consult placed to nephrology for dialysis orders 3. Hypertension - Blood pressure controlled, home medications continued with dose adjustment as needed 4. GERD ? On PPI 5. DVT prophylaxis ? SCDs only given patient's significant anemia Time spent in the patient's overall evaluation,decision-making process, review of diagnostic data, adjustment of management, discussion with other providers, nursing nursing and ancillary staff involved in patient's care documentation, 35 Minutes Medications at Discharge Home Medications acetaminophen 500 mg tablet 500 mg PO DAILY PAIN 11/21/19 cyanocobalamin (vitamin B-12) 500 mcg tablet 500 mcg PO DAILY@0800 supplement 11/21/19 nifedipine 60 mg tablet,extended release 30 mg PO QHS BLOOD PRESSURE 11/21/19 amlodipine 5 mg tablet 5 mg PO BID 08/24/23 calcium acetate(phosphat bind) 667 mg capsule 2,668 mg PO TID 12/12/23 carvedilol 6.25 mg tablet 6.25 mg PO Q12H 12/12/23 vitamin B complex-vitamin C-folic acid 0.8 mg tablet (Nephro-Christiano) 1 tab PO Q24H 12/12/23 ferrous sulfate 325 mg (65 mg iron) tablet (Feosol) 325 mg PO BID #60 tabs 12/15/23 pantoprazole 40 mg tablet,delayed release 40 mg PO DAILY REFLUX #60 tabs 12/15/23 sucralfate 1 gram tablet 1 g PO BID #30 tabs 12/15/23 Physical Exam Narrative GENERAL: cooperative HEENT: Atraumatic; normocephalic EYES; Anicteric, Normal Conjunctiva NECK; supple, normal thyroid, RESPIRATORY: Diminished to auscultation CARDIOVASCULAR: Regular S1 S2, GI: soft, normoactive bowel sounds, : No Renal angle tenderness; EXTREMITIES: No edema, no clubbing, MUSCULOSKELETAL: no muscle wasting NEURO: Awake; no lateralizing signs. SKIN: No Rash PSYCH; Flat affect Weight / BMI Weight Weight: 96 kg Body Mass Index (BMI) 29.6 ABG / Lab / Microbiology Data 12/15/23 06:13 12/15/23 06:13 Laboratory: Laboratory Results - last 24 hr 12/15/23 06:13: WBC 7.0, RBC 2.48 L, Hgb 7.8 L, Hct 24.8 L, MCV 100.0 H, MCH 31.5, MCHC 31.5 L, RDW Std Deviation 74.1 H, RDW Coeff of Brynn 20.1 H, Plt Count 177, MPV 11.4, Immature Gran % (Auto) 0.300, Neut % (Auto) 71.9 H, Lymph % (Auto) 12.1 L, [place] % (Auto) 13.2 H, Eos % (Auto) 2.1, Baso % (Auto) 0.4, Absolute Neuts (auto) 5.1, Absolute Lymphs (auto) 0.85, Nucleated RBC % 0, Differential Comment SCANNED, Anisocytosis 2+, Sodium 135 L, Potassium 5.1, Chloride 100, Carbon Dioxide 23.0, Anion Gap 12, BUN 115 H*, Creatinine 10.10 H*, Estim Creat Clear Calc 8.28, Est GFR (MDRD) Af Amer 7 L, Est GFR (MDRD) Non-Af 6 L, BUN/Creatinine Ratio 11.4, Glucose 103, Calcium 8.5, Phosphorus 8.4 H, Magnesium 3.2 H Microbiology: Microbiology 12/12/23 10:35 Stool Stool Occult Blood (LAMONTE) - Final D/C Instructions Discharge Activity: Return to Normal Activity Call your doctor if you observe: Fever of 101 or Higher, Shortness of breath, Fainting spells and Chest pain Meaningful Use Info Meaningful Use Diagnoses (Choose all that apply): None applicable Discharge Plan Admission Admit Date/Time: 12/12/23 11:14 Attending Provider: Landon Carmen Primary Care Provider: Bekah Washington Consulting Providers: Mathew Vargas Discharge Orders/Prescriptions Prescriptions: New sucralfate 1 gram tablet 1 g PO BID Qty: 30 0RF ferrous sulfate [Feosol] 325 mg (65 mg iron) tablet 325 mg PO BID Qty: 60 0RF Continued amlodipine 5 mg tablet 5 mg PO BID acetaminophen 500 MG tablet 500 mg PO DAILY cyanocobalamin (vitamin B-12) 500 MCG tablet 500 mcg PO DAILY@0800 nifedipine 60 MG tablet extended release 30 mg PO QHS Patient Comments: TAKE 1 TABLET BY MOUTH EVERY DAY calcium acetate(phosphat bind) 667 mg capsule 2,668 mg PO TID Patient Comments: TAKE 4 CAPSULES BY MOUTH THREE TIMES DAILY WITH MEALS carvedilol 6.25 mg tablet 6.25 mg PO Q12H Patient Comments: TAKE ONE TABLET BY MOUTH TWICE A DAY Nephro-Christiano 0.8 mg tablet 1 tab PO Q24H Patient Comments: TAKE 1 TABLET BY MOUTH EVERY DAY (ON DIALYSIS DAYS, TAKE AFTER DIALYSIS TREATMENT) pantoprazole 40 MG tablet 40 mg PO DAILY Qty: 60 0RF Discontinued aspirin 81 MG tablet,chewable 81 mg PO DAILY@0800 Qty: 0 0RF Rx Instructions: . Referrals / Follow Up: Bekah Washington MD [Primary Care Provider] - Friend,Cade, DO [Med Staff - Active Staff] - Within 2 Weeks Disposition Disposition (needs filled in before D/C Order can be placed): Home, Self Care Charges/Coding Visit Charges Inpatient E&M: 67145 Disch Hosp >30min
[2023-12-15 09:59] LABS: Pathologist Review Reviewed
--- NOTE | 2023-12-15 10:10 | CASEMGMT ---
Patient has order for discharge. RN CM in to discuss needs at discharge. Patient denies needs or help at discharge. Patient had no further questions or conerns.
--- NOTE | 2023-12-15 10:46 | PHA.DC.MC.R ---
Pharmacy [facility] has performed discharge medication reconciliation and counseling for this patient. Patient requested meds to beds delivery, this [facility] called retail and requested delivery. 1. FERROUS SULFATE 325MG PO BID 2. PANTOPRAZOLE 40MG PO DAILY 3. SUCRALFATE 1GM PO BID The patient's discharge medication list was reviewed for discrepancies and discrepancies were resolved. The patient was counseled on the following discharge medications and changes in medications for homegoing were reviewed. The Reason for Use, instructions for use, and potential side effects were reviewed for all new medications. The patient's questions regarding all of their medications were answered. The patient was able to verbally demonstrate an understanding of their discharge medications. Patient counseled by clinical pharmacy specialist, Marcelo. Medications at Discharge Home Medications acetaminophen 500 mg tablet 500 mg PO DAILY PAIN 11/21/19 cyanocobalamin (vitamin B-12) 500 mcg tablet 500 mcg PO DAILY@0800 supplement 11/21/19 nifedipine 60 mg tablet,extended release 30 mg PO QHS BLOOD PRESSURE 11/21/19 amlodipine 5 mg tablet 5 mg PO BID 08/24/23 calcium acetate(phosphat bind) 667 mg capsule 2,668 mg PO TID 12/12/23 carvedilol 6.25 mg tablet 6.25 mg PO Q12H 12/12/23 vitamin B complex-vitamin C-folic acid 0.8 mg tablet (Nephro-Christiano) 1 tab PO Q24H 12/12/23 ferrous sulfate 325 mg (65 mg iron) tablet (Feosol) 325 mg PO BID #60 tabs 12/15/23 pantoprazole 40 mg tablet,delayed release 40 mg PO DAILY REFLUX #60 tabs 12/15/23 sucralfate 1 gram tablet 1 g PO BID #30 tabs 12/15/23
--- NOTE | 2023-12-15 12:14 | PCM.PN.REN ---
Subjective Subjective Seen on dialysis today. No new complaints. Objective Data Objective Data Vital Signs: Vital Signs Temp Pulse Resp BP Pulse Ox O2 Del Method 98.2 F 74 16 140/86 H 97 Room Air 12/15/23 11:31 12/15/23 12:01 12/15/23 11:31 12/15/23 12:01 12/15/23 11:02 12/15/23 11:31 Oxygen Delivery Method Room Air Weight: 96 kg Body Mass Index (BMI) 29.6 Intake & Output: Intake and Output for Last 24 Hours 12/13/23 12/14/23 12/15/23 23:59 23:59 23:59 Intake Total 1270 / 1270 670 / 970 866.25 / 866.25 Output Total 3250 / 3250 0 / 0 Balance -1979 / 670 / 970 866.25 / 866.25 Lab / Micro Data 12/15/23 06:13 12/15/23 06:13 Labs: Laboratory Results - last 24 hr 12/12/23 09:36: Diff Path Review Reviewed 12/15/23 06:13: WBC 7.0, RBC 2.48 L, Hgb 7.8 L, Hct 24.8 L, MCV 100.0 H, MCH 31.5, MCHC 31.5 L, RDW Std Deviation 74.1 H, RDW Coeff of Brynn 20.1 H, Plt Count 177, MPV 11.4, Immature Gran % (Auto) 0.300, Neut % (Auto) 71.9 H, Lymph % (Auto) 12.1 L, [place] % (Auto) 13.2 H, Eos % (Auto) 2.1, Baso % (Auto) 0.4, Absolute Neuts (auto) 5.1, Absolute Lymphs (auto) 0.85, Nucleated RBC % 0, Differential Comment SCANNED, Anisocytosis 2+, Sodium 135 L, Potassium 5.1, Chloride 100, Carbon Dioxide 23.0, Anion Gap 12, BUN 115 H*, Creatinine 10.10 H*, Estim Creat Clear Calc 8.28, Est GFR (MDRD) Af Amer 7 L, Est GFR (MDRD) Non-Af 6 L, BUN/Creatinine Ratio 11.4, Glucose 103, Calcium 8.5, Phosphorus 8.4 H, Magnesium 3.2 H Micro: Microbiology 12/12/23 10:35 Stool Stool Occult Blood (LAMONTE) - Final Physical Exam Narrative General: Alert and oriented x3, NAD. HEENT: Normocephalic, atraumatic. Mucous membrane moist without erythema. PERRLA, EOMI. Hearing is intact. Neck: Supple, no JVD. Trachea is midline. No thyromegaly or lymphadenopathy. Cardiovascular: Normal S1, S2. No rubs, murmurs, or gallops. Respiratory: Decreased breath sound at bases. No wheezing, rhonchi, or rales. Abdomen: Normal bowel sounds, soft, nontender, no guarding or rebound, no organomegaly. Extremities: No clubbing, cyanosis, or edema. Musculoskeletal: Full passive range of motion, no joint swelling. Psychiatric: Normal mood and affect. Skin: Warm and dry, no rash. Neurologic: Cranial nerve II to XII are grossly intact. No focal neurologic deficits. Assessment & Plan Assessment/Plan (1) ESRD (end stage renal disease) on dialysis: (2) Anemia: (3) GI bleed: PLAN: Plan Impression/Plan: The patient is a 68-year-old man with past history of ESRD, hypertension, and osteoarthritis. Patient presented to hospital on 12/12/2023 with fatigue and dizziness. He was found to have hemoglobin of 5.9 g/dL. The patient has received PRBC transfusion. ESRD. The patient usually dialyzes at [facility] on TTS. Seen on dialysis today. Acute blood loss anemia. S/p PRBC. Endoscopy with bleeding ulcers We can arrange for IV iron with dialysis. Possible discharge home today
[2023-12-15] MEDS: amLODIPine 5 MG Tablet PO (12:34)
[2023-12-15] MEDS: Pantoprazole Sodium 40 MG Tablet PO (12:35)
== END 2023-12-15 13:19 | disposition home or self-care (01) | DRG 377 ==
LOC: ED 10:45 → MS3 12:32
PROVIDERS: Internal Medicine Gastroenterology; Admitting Provider Family Medicine; Emergency Provider Emergency Medicine; PCP Internal Medicine; Visit Provider Internal Medicine
PROC: 0DJ08ZZ Inspection of Upper Intestinal Tract, Via Natural or Artificial Opening Endoscopic (ICD-10-PCS; CPT 43235; principal; 2023-12-14 12:25)
DX: K26.4 Chronic or unspecified duodenal ulcer with hemorrhage (principal); N18.6 End stage renal disease; I12.0 Hypertensive chronic kidney disease with stage 5 chronic kidney disease or end stage renal disease; D62 Acute posthemorrhagic anemia; D63.1 Anemia in chronic kidney disease; Z99.2 Dependence on renal dialysis; K21.9 Gastro-esophageal reflux disease without esophagitis; K44.9 Diaphragmatic hernia without obstruction or gangrene; F17.210 Nicotine dependence, cigarettes, uncomplicated; Z79.82 Long term (current) use of aspirin; Z79.899 Other long term (current) drug therapy
CPT/HCPCS: 36415; 70450; 71046; 80048; 80076; 82274; 82728; 83540; 83550; 83735; 84100; 84484; 85014; 85018; 85025; 86850; 86900; 86901; 86920; 86922; 88305; 90937; 93005; 99285; 99406; J7030; J7040; J7050; P9016; A4216; G0257; J2405

== ENCOUNTER 2023-12-22 08:17 | Emergency (ER) | payer MEDICARE, BC, SELFPAY ==
[2023-12-22 08:18] VITALS: BP 147/100; PULSE 110; RESP 20; TEMP 36.4; O2SAT 92
[2023-12-22 08:20] VITALS: BP 146/91; PULSE 92; RESP 20; TEMP 36.6; O2SAT 95
[2023-12-22 08:35] VITALS: O2SAT 98
--- NOTE | 2023-12-22 08:59 | EKG12_ITS ---
Test Reason : SOB Blood Pressure : / mmHG Vent. Rate : 092 BPM Atrial Rate : 092 BPM P-R Int : 190 ms QRS Dur : 096 ms QT Int : 386 ms P-R-T Axes : 057 -13 050 degrees QTc Int : 477 ms Sinus rhythm with occasional Premature ventricular complexes and Premature atrial complexes Cannot rule out Anterior infarct , age undetermined Abnormal ECG Confirmed by Aric Palomo ([id number]), metropolitan editor DARRIUS ALONSO ([id number]) on 12/23/2023 10:54:41 AM Referred By: SAHARA/YONAS Confirmed By:Aric Palomo
--- NOTE | 2023-12-22 09:00 | ED.VIS.DYS ---
HPI History of Present Illness Chief Complaint: Shortness of Breath Narrative Narrative: 68-year-old male past medical history of end-stage renal disease, on dialysis Thursday, , and Thursday presents with increasing shortness of breath and dyspnea on exertion that has had over the last few days. He relates history that he is attended dialysis, the last being 3 days ago. He had full dialysis. He is supposed to have a treatment today and 15 minutes, but presents to the emergency department because he feels short of breath. He denies any fever but has an occasional cough. He also has dyspnea on exertion. Of note, he states that he is a smoker, but does not have a diagnosis of COPD. He has chronic lymphedema but has not noticed any increased leg swelling. He and his relate history that he was seen in the emergency department approximately a week ago where he was diagnosed with bleeding ulcers. He had a low hemoglobin at that time, but they performed endoscopy on Thursday of last week, cauterized areas, and he was released from the hospital on Thursday. He states that approximately 5 days ago they checked his hemoglobin and it was at 8. His stools have returned to normal color but have become dark again, but not black when he had his bleeding ulcers. [facility] Medical History Bursitis Cardiac disease Dialysis patient Hepatitis Kidney disease Kidney failure due to vascular disorder Migraines Problem with dialysis access Rectal bleeding Rheumatoid aortitis Rheumatoid vasculitis Smoker Subclavian aneurysm Home Medications acetaminophen 500 mg tablet 500 mg PO DAILY PAIN 11/21/19 [History Last Taken 12/12/23] cyanocobalamin (vitamin B-12) 500 mcg tablet 500 mcg PO DAILY@0800 supplement 11/21/19 [History Last Taken 12/02/19 08:00] nifedipine 60 mg tablet,extended release 30 mg PO QHS BLOOD PRESSURE 11/21/19 [History Last Taken 12/20/19 22:00] amlodipine 5 mg tablet 5 mg PO BID 08/24/23 [History Last Taken 12/12/23] calcium acetate(phosphat bind) 667 mg capsule 2,668 mg PO TID 12/12/23 [History Last Taken Unknown] carvedilol 6.25 mg tablet 6.25 mg PO Q12H 12/12/23 [History Last Taken 12/12/23] vitamin B complex-vitamin C-folic acid 0.8 mg tablet (Nephro-Christiano) 1 tab PO Q24H 12/12/23 [History Last Taken 12/12/23] ferrous sulfate 325 mg (65 mg iron) tablet (Feosol) 325 mg PO BID #60 tabs 12/15/23 [Rx Last Taken Unknown] pantoprazole 40 mg tablet,delayed release 40 mg PO DAILY REFLUX #60 tabs 12/15/23 [Rx Last Taken Unknown] sucralfate 1 gram tablet 1 g PO BID #30 tabs 12/15/23 [Rx Last Taken Unknown] Allergy/AdvReac Type Severity Reaction Status Date / Time No Known Allergies Allergy Verified 12/22/23 08:18 Family History Other Cancer Diabetes Heart disease Surgical History History of bicuspid aortic valve History of umbilical hernia Hx of arteriovenostomy for renal dialysis (~12/2019) S/P knee surgery s/p subclavian graft Status post insertion of dialysis catheter (~11/2019) Social History Smoking Status: Current every day smoker tobacco type: cigarettes alcohol intake: never ROS ROS ED ROS Narrative Constitutional: No fever, no chills. HEENT: No sore throat. No neck pain. No loss of vision. No rhinorrhea. Cardiovascular: No chest pain. No palpitations. Chronic pedal edema. Respiratory: Occasional productive cough, positive dyspnea on exertion and shortness of breath. Positive orthopnea. Abdominal: No abdominal pain. No nausea. No vomiting. Genitourinary: No dysuria. No hematuria. Musculoskeletal: No myalgias. No arthralgias. Neurologic: No headaches. No dizziness. No lightheadedness. Skin: No rash. No change in color. Psychiatric: No depression. No anxiety. EXAM Physical Exam Narrative Exam Narrative: Afebrile. Vital signs noted. HEENT: Normocephalic. Atraumatic. PERRL, EOMI. Neck soft and supple. No point tenderness or step off. Cardiovascular: Regular rate and rhythm. No murmurs, rubs, or gallops appreciated. Respiratory: No tachypnea. Lungs clear to auscultation bilaterally. Decreased breath sounds left base greater than right. Gastrointestinal: Abdomen soft, nontender, with normoactive bowel sounds. No rebound or guarding. Neurological: Awake. Alert. Nonfocal, nonlateralizing. Skin: No rash. Normal color. No pallor. Musculoskeletal: No pedal edema. Full range of motion extremities. Const Vital Signs: 12/22/23 08:18 12/22/23 08:35 12/22/23 08:20 Temperature 97.6 F L 97.9 F Temperature Source Temporal Temporal Pulse Rate 110 H 92 Respiratory Rate 20 H 20 H Respiratory Effort Short of Breath Respiratory Pattern Tachypnea Blood Pressure 147/100 H 146/91 H Blood Pressure Mean 115 109 Pulse Ox 92 95 Oxygen Delivery Method Room Air Room Air Room Air 12/22/23 09:09 Temperature Temperature Source Pulse Rate 91 Respiratory Rate 16 Respiratory Effort Respiratory Pattern Normal Blood Pressure Blood Pressure Mean Pulse Ox Oxygen Delivery Method MDM MDM MDM Narrative Medical decision making narrative: In the differential diagnosis is fluid overload/CHF as he is due for dialysis today. Additionally, he may have an undiagnosed COPD exacerbation as he is a smoker. Concern is also for pneumonia or pneumothorax. However, history and physical does not support pneumothorax. Apprehensive workup was pursued. I do feel chest x-ray is indicated in 1 view. I will obtain basic laboratory work as he is due for dialysis today as well. I do not feel that a troponin or BNP is indicated as he is not having chest pain and he has history of end-stage renal disease. EKG was obtained and interpreted by myself independently as normal sinus rhythm at 92 bpm with PVC but no acute ST changes. No STEMI. I reviewed his laboratory work and he has slightly elevated white count of 11.1 which I think is nonspecific, hemoglobin has increased to 8.4 and is stable, I do not feel he needs a blood transfusion or that he is having continued GI bleeding. Platelet count normal at 296. Electrolyte panel is grossly unremarkable except for the BUN of 75 and creatinine 9.47 consistent with his end-stage renal disease. Glucose is appropriately elevated at 136 with an anion gap normal at 13. Potassium is normal at 4.3. Chest x-ray in 1 view interpreted by myself shows bibasilar atelectasis with fluid overload with blunting of the costophrenic angles. At this point in time, I feel he can be discharged to follow-up with dialysis. The dialysis center was contacted and they state that they can still take him as long as he is discharged and reports there immediately. I feel he can be discharged to have his dialysis and for them to take off fluid. Disposition is discharged in stable condition. History & Record Review Discussion w/independent historian: Patient and Family Additional record(s) reviewed:: Prior ED visit and Prior labs Lab Data Attestation: I reviewed the patient's lab results. Labs: Laboratory Results - last 24 hr 12/22/23 08:35 WBC 11.1 H RBC 2.64 L Hgb 8.4 L Hct 27.1 L MCV 102.7 H MCH 31.8 MCHC 31.0 L RDW Std Deviation 67.7 H RDW Coeff of Brynn 18.3 H Plt Count 296 MPV 11.8 Immature Gran % (Auto) 0.400 Neut % (Auto) 79.9 H Lymph % (Auto) 9.1 L [place] % (Auto) 8.8 Eos % (Auto) 1.3 Baso % (Auto) 0.5 Absolute Neuts (auto) 8.9 H Absolute Lymphs (auto) 1.01 Nucleated RBC % 0 Anisocytosis 1+ Sodium 136 Potassium 4.3 Chloride 94 L Carbon Dioxide 29.0 Anion Gap 13 BUN 75 H Creatinine 9.47 H* Est GFR (MDRD) Af Amer 7 L Est GFR (MDRD) Non-Af 6 L BUN/Creatinine Ratio 7.9 L Glucose 136 H Calcium 9.6 Total Bilirubin 0.40 AST 13 L ALT 9 L Alkaline Phosphatase 50 Total Protein 7.2 Albumin 3.3 Globulin 3.9 Albumin/Globulin Ratio 0.8 L Radiography Diagnostic Testing: Clinical Impression(s) from Imaging Studies Chest X-Ray 12/22/23 09:15 IMPRESSION: Bibasilar atelectasis and/or infiltrates worse on the left side with some blunting of both costophrenic angles. Electronically Signed: Pierce Kuhn MD at 9:58 EST , Discharge Plan Triage Chief Complaint: Shortness of Breath ED Provider: Arnulfo Sofia Dx/Rx/DC Orders Clinical Impression: ESRD needing dialysis, SOB (shortness of breath) Instructions: ED Dyspnea Prescriptions: No Action amlodipine 5 mg tablet 5 mg PO BID acetaminophen 500 MG tablet 500 mg PO DAILY cyanocobalamin (vitamin B-12) 500 MCG tablet 500 mcg PO DAILY@0800 nifedipine 60 MG tablet extended release 30 mg PO QHS Patient Comments: TAKE 1 TABLET BY MOUTH EVERY DAY calcium acetate(phosphat bind) 667 mg capsule 2,668 mg PO TID Patient Comments: TAKE 4 CAPSULES BY MOUTH THREE TIMES DAILY WITH MEALS carvedilol 6.25 mg tablet 6.25 mg PO Q12H Patient Comments: TAKE ONE TABLET BY MOUTH TWICE A DAY Nephro-Christiano 0.8 mg tablet 1 tab PO Q24H Patient Comments: TAKE 1 TABLET BY MOUTH EVERY DAY (ON DIALYSIS DAYS, TAKE AFTER DIALYSIS TREATMENT) sucralfate 1 gram tablet 1 g PO BID Qty: 30 0RF ferrous sulfate [Feosol] 325 mg (65 mg iron) tablet 325 mg PO BID Qty: 60 0RF pantoprazole 40 MG tablet 40 mg PO DAILY Qty: 60 0RF Primary Care Provider: Bekah Washington Referrals: Bekah Washington MD [Primary Care Provider] - Activity Restrictions/Additional Instructions: Report immediately to dialysis. Disposition Disposition: Home, Self Care
[2023-12-22] MEDS: Ipratropium/Albuterol Sulfate 3 ML AMPUL.NEB INHALATION (09:07)
[2023-12-22 09:08] LABS: Absolute Lymphocyte Count 1.01 X10^3/uL (0.83-4.51); Absolute Neutrophil Count 8.9 X10^3/uL (2.0-7.7); Basophil# 0.05 X10^3/uL; Basophil% 0.5 % (0-1); Eosinophil# 0.14 X10^3/uL; Eosinophils% 1.3 % (0-5); Hematocrit 27.1 % (40-54); Hemoglobin 8.4 g/dL (13.0-16.5); Lymphocyte # 1.01 X10^3/ul (0.83-4.51); Lymphocyte % 9.1 % (19-41); Mean Corpuscular Hgb 31.8 pg (27.0-32.0); Mean Corpuscular Volume 102.7 fL (80-94); Mean Platelet Vol. 11.8 fl (6.2-12.0); Monocyte# 0.97 X10^3/uL; Monocyte% 8.8 % (0-10); NRBC Flagged by Analyzer 0 % (0-5); Neutrophil # 8.87 X10^3/uL (2.7-7.7); Neutrophil % 79.9 % (47-70); POSITIVE MORPHOLOGY YES; Platelet Count 296 K/mm3 (150-450); RBC Distribution Width CV 18.3 % (11.6-14.6); RBC Distribution Width SD 67.7 fl (35.1-43.9); Red Blood Count 2.64 M/mm3 (4.6-6.2); White Blood Count 11.1 K/mm3 (4.4-11.0)
[2023-12-22 09:09] VITALS: PULSE 91; RESP 16
[2023-12-22 09:11] LABS: Differential Indicated SCAN CRITERIA MET
--- NOTE | 2023-12-22 09:15 | RAD_ITS ---
STUDY: X-RAY CHEST REASON FOR EXAM: Male, 68 years old. Shortness of Breath TECHNIQUE: Single AP portable view of the chest. COMPARISON: Comparison is made with prior study dated December 12, 2023. FINDINGS: EKG electrodes are seen. Bibasilar patchy atelectasis and/or infiltrates more prominent on the left side. Blunting of the left costophrenic angle. There is borderline cardiomegaly. Normal mediastinum and cirilo. Normal visualized pulmonary arteries. There is atherosclerotic calcification of the aortic arch with tortuosity. There are diffuse degenerative changes of the visualized thoracic spine. Normal visualized ribs, clavicles, and shoulders. There is no demonstrated abnormality of the visualized soft tissue structures of the upper abdomen. RAD/Chest 1 View (Portable) IMPRESSION: Bibasilar atelectasis and/or infiltrates worse on the left side with some blunting of both costophrenic angles. Electronically Signed: Pierce Kuhn MD at 9:58 EST ,
[2023-12-22 09:27] LABS: ALB/GLOB Ratio 0.8 RATIO (0.9-2.4); AST(SGOT) 13 U/L (15-37); Alanine Aminotransfer ALT/SGPT 9 U/L (16-61); Albumin, Serum 3.3 g/dL (3.2-5.0); Alkaline Phosphatase 50 U/L (45-117); Anion Gap 13 (5-15); BUN 75 mg/dL (7-18); BUN/Creat Ratio 7.9 RATIO (10-20); Calcium,Total 9.6 mg/dL (8.5-10.1); Chloride 94 mmol/L (98-107); Creatinine, Serum 9.47 mg/dL (0.70-1.30); EST Glomerular Filtration Rate 6 mL/min (>60); Est Glom Filt Rate - Afr Amer 7 mL/min (>60); Globulin 3.9 g/dL (2.2-4.2); Glucose 136 mg/dL (74-106); Potassium 4.3 mmol/L (3.5-5.1); Protein, Total 7.2 g/dL (6.4-8.2); Sodium Level 136 mmol/L (136-145)
[2023-12-22 10:13] LABS: Anisocytosis 1+
[2023-12-22 11:06] VITALS: BP 140/100; PULSE 93; RESP 18; TEMP 36.6; O2SAT 94
== END 2023-12-22 11:08 | disposition home or self-care (01) ==
PROVIDERS: Emergency Provider Emergency Medicine; PCP Internal Medicine; Visit Provider Emergency Medicine
DX: N18.6 End stage renal disease (principal); Z99.2 Dependence on renal dialysis; F17.210 Nicotine dependence, cigarettes, uncomplicated; R06.02 Shortness of breath
CPT/HCPCS: 99284; 71045; 80053; 85025; 93005; 94640

== ENCOUNTER 2023-12-24 16:05 | Inpatient (IN) | payer MEDICARE, BC, SELFPAY ==
[2023-12-24] VITALS (7 sets, daily range): BP systolic 101–135; BP diastolic 69–85; PULSE 72–84; RESP 12–17; TEMP 36.4–37; O2SAT 96–98; BMI 29.7; BMI 29.3
--- NOTE | 2023-12-24 16:38 | EKG12_ITS ---
Test Reason : GENERAL Blood Pressure : / mmHG Vent. Rate : 078 BPM Atrial Rate : 078 BPM P-R Int : 194 ms QRS Dur : 100 ms QT Int : 444 ms P-R-T Axes : 056 -11 107 degrees QTc Int : 506 ms Normal sinus rhythm Nonspecific ST changes Prolonged QT Abnormal ECG Confirmed by Aric Palomo ([id number]), medical editor DARRIUS ALONSO ([id number]) on 12/25/2023 9:46:06 AM Referred By: Ofelia Walls Confirmed By:Aric Palomo
[2023-12-24 16:53] LABS: Absolute Lymphocyte Count 0.74 X10^3/uL (0.83-4.51); Absolute Neutrophil Count 5.5 X10^3/uL (2.0-7.7); Basophil# 0.04 X10^3/uL; Basophil% 0.6 % (0-1); Eosinophil# 0.14 X10^3/uL; Eosinophils% 1.9 % (0-5); Hematocrit 25.4 % (40-54); Hemoglobin 7.9 g/dL (13.0-16.5); Lymphocyte # 0.74 X10^3/ul (0.83-4.51); Lymphocyte % 10.3 % (19-41); Mean Corp Hgb Conc 31.1 g/dL (32-36); Mean Corpuscular Hgb 32.6 pg (27.0-32.0); Mean Platelet Vol. 11.3 fl (6.2-12.0); Monocyte# 0.79 X10^3/uL; NRBC Flagged by Analyzer 0 % (0-5); Neutrophil # 5.46 X10^3/uL (2.7-7.7); Neutrophil % 75.8 % (47-70); POSITIVE MORPHOLOGY YES; Platelet Count 249 K/mm3 (150-450); RBC Distribution Width CV 18.6 % (11.6-14.6); RBC Distribution Width SD 71.3 fl (35.1-43.9); Red Blood Count 2.42 M/mm3 (4.6-6.2); White Blood Count 7.2 K/mm3 (4.4-11.0)
--- NOTE | 2023-12-24 16:54 | EX.ED.DYSGE1 ---
HPI <Pretty Hyde RN - Last Filed: 12/24/23 18:20> History of Present Illness Chief Complaint: Abn Labs Detail of Chief Complaint: Weakness and shortness of breath Informant: patient Onset/Context/Timing Onset: Days (1) Context: Gradual Onset Timing: Continuous Current Severity: Mild Maximum Severity: Moderate Worsened by: Activity Relieved by: Rest Narrative Narrative: Patient presents to the ED for weakness and increased shortness of breath. Patient reports hemoglobin 7.6 after dialysis (Thursday, , Thursday) today. Patient reports being too weak to shower. Also reports black stool today. Patient reports stool had returned to normal/dark brown after admission. Of note, patient 12/12/2023 to 12/15/2023 for GI bleeding. Had EGD on 12/14/2023 for which he was treated for oozing duodenal ulcers. Patient required transfusions during admission. Patient seen in the ED on 12/22/2023 for increasing shortness of breath and dyspnea on exertion. Patient had dialysis following ED visit in which he reports feeling better after dialysis. Prior similar symptoms: Yes Recent Illness/Hospitalization: Yes PFSH <Pretty Hyde RN - Last Filed: 12/24/23 18:20> [facility] Medical History Bursitis Cardiac disease Dialysis patient Hepatitis Kidney disease Kidney failure due to vascular disorder Migraines Problem with dialysis access Rectal bleeding Rheumatoid aortitis Rheumatoid vasculitis Smoker Subclavian aneurysm Home Medications acetaminophen 500 mg tablet 500 mg PO DAILY PAIN 11/21/19 [History Last Taken 12/12/23] amlodipine 5 mg tablet 5 mg PO BID 08/24/23 [History Last Taken 12/24/23] calcium acetate(phosphat bind) 667 mg capsule 2,668 mg PO TID 12/12/23 [History Last Taken 12/23/23] carvedilol 6.25 mg tablet 6.25 mg PO Q12H 12/12/23 [History Last Taken 12/24/23] vitamin B complex-vitamin C-folic acid 0.8 mg tablet (Nephro-Christiano) 1 tab PO Q24H 12/12/23 [History Last Taken 12/23/23] pantoprazole 40 mg tablet,delayed release 40 mg PO DAILY REFLUX #60 tabs 12/15/23 [Rx Last Taken 12/23/23] sucralfate 1 gram tablet 1 g PO BID #30 tabs 12/15/23 [Rx Last Taken 12/23/23] Allergy/AdvReac Type Severity Reaction Status Date / Time No Known Allergies Allergy Verified 12/22/23 08:18 Family History Other Cancer Diabetes Heart disease Surgical History History of bicuspid aortic valve History of umbilical hernia Hx of arteriovenostomy for renal dialysis (~12/2019) S/P knee surgery s/p subclavian graft Status post insertion of dialysis catheter (~11/2019) Social History Smoking Status: Current every day smoker tobacco type: cigarettes alcohol intake: never ROS <Pretty Hyde RN - Last Filed: 12/24/23 18:20> ROS ED Constitutional Constitutional ED: Denies chills, fever(s) or sweats Eyes Eyes: Denies blurry vision or change in vision Cardiovascular Cardiovascular: Denies chest pain, orthopnea, palpitations or racing heartbeat Respiratory/Chest Respiratory/Chest: Reports dyspnea and dyspnea on exertion; Denies cough or orthopnea Gastrointestinal Gastrointestinal: Reports melena; Denies abdominal pain, constipation, diarrhea, nausea or vomiting Genitourinary Genitourinary ED: Denies dysuria, hematuria or urinary frequency Musculoskeletal Musculoskeletal: Denies arthralgias or myalgias Neurologic Neurologic: Reports weakness; Denies headache(s) or paresthesias EXAM <Pretty Hyde RN - Last Filed: 12/24/23 18:20> Physical Exam Const Vital Signs: 12/24/23 16:05 12/24/23 16:14 12/24/23 17:19 Temperature 97.6 F L Temperature Source Temporal Pulse Rate 82 76 Respiratory Rate 16 13 Respiratory Effort Short of Breath Respiratory Pattern Normal Blood Pressure 118/69 115/70 Blood Pressure Mean 85 85 Pulse Ox 97 97 Oxygen Delivery Method Room Air Room Air 12/24/23 18:10 Temperature Temperature Source Pulse Rate 77 Respiratory Rate 14 Respiratory Effort Respiratory Pattern Blood Pressure 101/76 Blood Pressure Mean 84 Pulse Ox 96 Oxygen Delivery Method Room Air Positive well nourished and well developed General Appearance ED: well developed and NAD HEENT Reports moist mucous membranes Eyes PERRL Chest Wall inspection of chest normal and palpation of chest normal Resp normal respiratory effort and clear to auscultation bilaterally Cardio regular rate, regular rhythm, S1 normal heart sound and S2 normal heart sound; Negative for no murmurs Rate: other Other Details: Systolic murmur GI normal to inspection, nondistended, normoactive bowel sounds and non-tender Auscultation: normoactive bowel sounds Palpation: soft Extremity Extremity Narrative: AV fistula to left lower arm with positive bruit and thrill. 2+ bilateral lower extremity edema. Patient reports history of lymphedema. Reports this is his usual edema. General Extremety ED: Yes edema General Extremity: edema Neuro oriented x3 Sensorium / Orientation: alert Motor Exam: strength 5/5 throughout Psych mental status grossly normal Skin no rashes or lesions noted Skin Narrative: Pale <Dr. Eric Lema MD - Last Filed: 12/24/23 18:28> Physical Exam Const Vital Signs: 12/24/23 16:05 12/24/23 16:14 12/24/23 17:19 Temperature 97.6 F L Temperature Source Temporal Pulse Rate 82 76 Respiratory Rate 16 13 Respiratory Effort Short of Breath Respiratory Pattern Normal Blood Pressure 118/69 115/70 Blood Pressure Mean 85 85 Pulse Ox 97 97 Oxygen Delivery Method Room Air Room Air 12/24/23 18:10 Temperature Temperature Source Pulse Rate 77 Respiratory Rate 14 Respiratory Effort Respiratory Pattern Blood Pressure 101/76 Blood Pressure Mean 84 Pulse Ox 96 Oxygen Delivery Method Room Air MDM <Pretty Hyde RN - Last Filed: 12/24/23 18:20> [facility] Narrative Medical decision making narrative: IV line initiated. Labwork obtained to evaluate for leukocytosis, anemia, and electrolyte derangement. EKG obtained to evaluate for cardiac arrhythmia/ischemia. Stool collected to evaluate for occult blood. I have personally performed a face to face assessment of the patient and have reviewed the VIJAY Note. I performed a substantive portion of the visit including all aspects of the following. My tilley findings include: History is [68-year-old male recent history of an upper GI bleed due to bleeding gastric ulcer. Basically presents today complaining of black stool. Currently on no blood thinners. He does get dialysis. I believe that he is not on heparin at this time either. He denies any hematemesis.] Exam is [well-appearing 60-year-old male. Vital signs stable afebrile. HEENT exam unremarkable. Neck nontender. Lungs clear. Heart regular rhythm rate about 75 no murmur. Abdomen soft, nontender, nondistended normal bowel sounds no peritoneal signs. Moving all 4 extremities. He does have a dialysis shunt in his left forearm with good thrill. Chronic lower extremity edema. Neurologically is awake and alert with no focal motor deficits.] Medical Decision Making [68-year-old with concern for possible recurrent upper GI bleed. CBC shows a white count of 7. H&H is 7.9 and 25. Platelets 249.] Other additions or changes: [None] History & Record Review Discussion w/independent historian: Patient Additional record(s) reviewed:: Prior inpatient record Lab Data Attestation: I reviewed the patient's lab results. Labs: Laboratory Results - last 24 hr 12/24/23 16:21 WBC 7.2 RBC 2.42 L Hgb 7.9 L Hct 25.4 L MCV 105.0 H MCH 32.6 H MCHC 31.1 L RDW Std Deviation 71.3 H RDW Coeff of Brynn 18.6 H Plt Count 249 MPV 11.3 Immature Gran % (Auto) 0.400 Neut % (Auto) 75.8 H Lymph % (Auto) 10.3 L [place] % (Auto) 11.0 H Eos % (Auto) 1.9 Baso % (Auto) 0.6 Absolute Neuts (auto) 5.5 Absolute Lymphs (auto) 0.74 L Nucleated RBC % 0 Platelet Estimate ADEQUATE RBC Morphology N CHROM Anisocytosis 1+ Macrocytosis 1+ Ovalocytes RARE Sodium 138 Potassium 3.1 L Chloride 96 L Carbon Dioxide 36.0 H Anion Gap 6 BUN 18 Creatinine 3.97 H Estim Creat Clear Calc 21.10 Est GFR (MDRD) Af Amer 20 L Est GFR (MDRD) Non-Af 16 L BUN/Creatinine Ratio 4.5 L Glucose 139 H Calcium 8.5 Total Bilirubin 0.40 AST 12 L ALT 10 L Alkaline Phosphatase 51 Total Protein 6.9 Albumin 3.2 Globulin 3.7 Albumin/Globulin Ratio 0.9 Blood Type A POSITIVE Antibody Screen NEGATIVE Crossmatch See Detail Differential Diagnosis Chest pain/SOB: CHF Abdominal Pain: UTI Differential Diagnosis: Upper GI bleed Management Discussion w/another healthcare provider: Other (Dr. Lema, ED provider) Treatment and Re-Evaluation :: Upon reevaluation, patient awake and alert. No acute distress noted. at bedside. CBC revealed hemoglobin 7.9 which had previously been 7.6 earlier today. Chemistry showed a potassium of 3.1, creatinine 3.97. Patient with chronically elevated creatinine due to renal disease. Case discussed with Dr. Friend by Dr. Lema who recommended discharge home with follow-up CBC tomorrow. Discussed plan for discharge with patient. Patient and both concerned about patient overall weakness and ability to care for self at home. <Dr. Eric Lema MD - Last Filed: 12/24/23 18:28> MDM MDM Narrative Medical decision making narrative: IV line initiated. Labwork obtained to evaluate for leukocytosis, anemia, and electrolyte derangement. EKG obtained to evaluate for cardiac arrhythmia/ischemia. Stool collected to evaluate for occult blood. I have personally performed a face to face assessment of the patient and have reviewed the VIJAY Note. I performed a substantive portion of the visit including all aspects of the following. My tilley findings include: History is [68-year-old male recent history of an upper GI bleed due to bleeding gastric ulcer. Basically presents today complaining of black stool. Currently on no blood thinners. He does get dialysis. I believe that he is not on heparin at this time either. He denies any hematemesis.] Exam is [well-appearing 60-year-old male. Vital signs stable afebrile. HEENT exam unremarkable. Neck nontender. Lungs clear. Heart regular rhythm rate about 75 no murmur. Abdomen soft, nontender, nondistended normal bowel sounds no peritoneal signs. Moving all 4 extremities. He does have a dialysis shunt in his left forearm with good thrill. Chronic lower extremity edema. Neurologically is awake and alert with no focal motor deficits.] Medical Decision Making [68-year-old with concern for possible recurrent upper GI bleed. CBC shows a white count of 7. H&H is 7.9 and 25. Platelets 249.] Other additions or changes: [None] I spoke to the hospitalist then GI. We initially relent the patient go home with outpatient follow-up with a repeat CBC to check his blood counts. Discussed and have the patient and his states she is unable to care for him he is too weak to go home so the hospitalist will admit the patient. Lab Data Attestation: I reviewed the patient's lab results. Lab results narrative: CBC is a white count 7. H&H 10.9 and 25.4. Platelets 249. Potassium 3.1. Gap of 6. BUN of 18 creatinine 3.97. He was dialyzed today. Glucose 139. Liver enzymes are unremarkable. Labs: Laboratory Results - last 24 hr 12/24/23 16:21 WBC 7.2 RBC 2.42 L Hgb 7.9 L Hct 25.4 L MCV 105.0 H MCH 32.6 H MCHC 31.1 L RDW Std Deviation 71.3 H RDW Coeff of Brynn 18.6 H Plt Count 249 MPV 11.3 Immature Gran % (Auto) 0.400 Neut % (Auto) 75.8 H Lymph % (Auto) 10.3 L [place] % (Auto) 11.0 H Eos % (Auto) 1.9 Baso % (Auto) 0.6 Absolute Neuts (auto) 5.5 Absolute Lymphs (auto) 0.74 L Nucleated RBC % 0 Platelet Estimate ADEQUATE RBC Morphology N CHROM Anisocytosis 1+ Macrocytosis 1+ Ovalocytes RARE Sodium 138 Potassium 3.1 L Chloride 96 L Carbon Dioxide 36.0 H Anion Gap 6 BUN 18 Creatinine 3.97 H Estim Creat Clear Calc 21.10 Est GFR (MDRD) Af Amer 20 L Est GFR (MDRD) Non-Af 16 L BUN/Creatinine Ratio 4.5 L Glucose 139 H Calcium 8.5 Total Bilirubin 0.40 AST 12 L ALT 10 L Alkaline Phosphatase 51 Total Protein 6.9 Albumin 3.2 Globulin 3.7 Albumin/Globulin Ratio 0.9 Blood Type A POSITIVE Antibody Screen NEGATIVE Crossmatch See Detail Rhythm Strip Rhythm Strip: Sinus Rhythm Rate: 78 Ectopy: None EKG Initial EKG: Attestation: I personally reviewed and interpreted this EKG as follows: Interpretation: Sinus Rhythm and No Acute Injury Pattern Comments: Normal sinus rhythm rate 78 no acute signs of VT or ischemia. No dysrhythmia. Discharge Plan Dx/Rx/DC Orders Clinical Impression: History of renal dialysis, History of end stage renal disease, Acute upper GI bleed, Chronic anemia Disposition Disposition: [facility]
[2023-12-24 17:07] LABS: ALB/GLOB Ratio 0.9 RATIO (0.9-2.4); AST(SGOT) 12 U/L (15-37); Alanine Aminotransfer ALT/SGPT 10 U/L (16-61); Albumin, Serum 3.2 g/dL (3.2-5.0); Alkaline Phosphatase 51 U/L (45-117); Anion Gap 6 (5-15); BUN 18 mg/dL (7-18); BUN/Creat Ratio 4.5 RATIO (10-20); Calcium,Total 8.5 mg/dL (8.5-10.1); Chloride 96 mmol/L (98-107); Creatinine, Serum 3.97 mg/dL (0.70-1.30); EST Glomerular Filtration Rate 16 mL/min (>60); Est Glom Filt Rate - Afr Amer 20 mL/min (>60); Globulin 3.7 g/dL (2.2-4.2); Glucose 139 mg/dL (74-106); Potassium 3.1 mmol/L (3.5-5.1); Protein, Total 6.9 g/dL (6.4-8.2); Sodium Level 138 mmol/L (136-145)
[2023-12-24 17:08] LABS: Differential Indicated SCAN CRITERIA MET
[2023-12-24] MEDS: Pantoprazole Sodium 80 MG in 0.9% Normal Saline (50mL Bag) 15 ML 420 MG IV BOLUS (17:16)
[2023-12-24 17:17] LABS: Platelet Estimate ADEQUATE (ADEQ); Red Cell Morphology N CHROM NORMAL (NORM C&C)
[2023-12-24 17:18] LABS: Anisocytosis 1+; Macrocytosis 1+; Ovalocyte RARE
--- NOTE | 2023-12-24 18:38 | EDS_ITS ---
HPI History of Present Illness Chief Complaint: Abn Labs [facility] Medical History Bursitis Cardiac disease Dialysis patient Hepatitis Kidney disease Kidney failure due to vascular disorder Migraines Problem with dialysis access Rectal bleeding Rheumatoid aortitis Rheumatoid vasculitis Smoker Subclavian aneurysm Home Medications acetaminophen 500 mg tablet 500 mg PO DAILY PAIN 11/21/19 [History Last Taken 12/12/23] amlodipine 5 mg tablet 5 mg PO BID 08/24/23 [History Last Taken 12/24/23] calcium acetate(phosphat bind) 667 mg capsule 2,668 mg PO TID 12/12/23 [History Last Taken 12/23/23] carvedilol 6.25 mg tablet 6.25 mg PO Q12H 12/12/23 [History Last Taken 12/24/23] vitamin B complex-vitamin C-folic acid 0.8 mg tablet (Nephro-Christiano) 1 tab PO Q24H 12/12/23 [History Last Taken 12/23/23] pantoprazole 40 mg tablet,delayed release 40 mg PO DAILY REFLUX #60 tabs 12/15/23 [Rx Last Taken 12/23/23] sucralfate 1 gram tablet 1 g PO BID #30 tabs 12/15/23 [Rx Last Taken 12/23/23] Allergy/AdvReac Type Severity Reaction Status Date / Time No Known Allergies Allergy Verified 12/22/23 08:18 Family History Other Cancer Diabetes Heart disease Surgical History History of bicuspid aortic valve History of umbilical hernia Hx of arteriovenostomy for renal dialysis (~12/2019) S/P knee surgery s/p subclavian graft Status post insertion of dialysis catheter (~11/2019) Social History Smoking Status: Current every day smoker tobacco type: cigarettes alcohol intake: never EXAM Physical Exam Const Vital Signs: 12/24/23 16:05 12/24/23 16:14 12/24/23 17:19 Temperature 97.6 F L Temperature Source Temporal Pulse Rate 82 76 Respiratory Rate 16 13 Respiratory Effort Short of Breath Respiratory Pattern Normal Blood Pressure 118/69 115/70 Blood Pressure Mean 85 85 Pulse Ox 97 97 Oxygen Delivery Method Room Air Room Air 12/24/23 18:10 Temperature Temperature Source Pulse Rate 77 Respiratory Rate 14 Respiratory Effort Respiratory Pattern Blood Pressure 101/76 Blood Pressure Mean 84 Pulse Ox 96 Oxygen Delivery Method Room Air MDM MDM MDM Narrative Medical decision making narrative: IV line initiated. Labwork obtained to evaluate for leukocytosis, anemia, and electrolyte derangement. EKG obtained to evaluate for cardiac arrhythm ia/ischemia. Type and cross obtained in the event patient would need blood products. Stool of obtained for occult blood. History & Record Review Discussion w/independent historian: Patient and Family Additional record(s) reviewed:: Prior inpatient record Lab Data Attestation: I reviewed the patient's lab results. Labs: Laboratory Results - last 24 hr 12/24/23 16:21 WBC 7.2 RBC 2.42 L Hgb 7.9 L Hct 25.4 L MCV 105.0 H MCH 32.6 H MCHC 31.1 L RDW Std Deviation 71.3 H RDW Coeff of Brynn 18.6 H Plt Count 249 MPV 11.3 Immature Gran % (Auto) 0.400 Neut % (Auto) 75.8 H Lymph % (Auto) 10.3 L Child[place] % (Auto) 11.0 H Eos % (Auto) 1.9 Baso % (Auto) 0.6 Absolute Neuts (auto) 5.5 Absolute Lymphs (auto) 0.74 L Nucleated RBC % 0 Platelet Estimate ADEQUATE RBC Morphology N CHROM Anisocytosis 1+ Macrocytosis 1+ Ovalocytes RARE Sodium 138 Potassium 3.1 L Chloride 96 L Carbon Dioxide 36.0 H Anion Gap 6 BUN 18 Creatinine 3.97 H Estim Creat Clear Calc 21.10 Est GFR (MDRD) Af Amer 20 L Est GFR (MDRD) Non-Af 16 L BUN/Creatinine Ratio 4.5 L Glucose 139 H Calcium 8.5 Total Bilirubin 0.40 AST 12 L ALT 10 L Alkaline Phosphatase 51 Total Protein 6.9 Albumin 3.2 Globulin 3.7 Albumin/Globulin Ratio 0.9 Blood Type A POSITIVE Antibody Screen NEGATIVE Crossmatch See Detail Rhythm Strip Rhythm Strip: Sinus Rhythm Rate: 78 Ectopy: None EKG Initial EKG: Interpretation: Sinus Rhythm and No Acute Injury Pattern Prior EKG tracings: not available for review Differential Diagnosis Abdominal Pain: Bowel obstruction and UTI Differential Diagnosis: GI bleed Management Discussion w/another healthcare provider: Other (Dr. Lema, ED provider) Treatment and Re-Evaluation :: Upon reevaluation, patient awake and alert. No acute distress. at bedside. CBC shows a white count of 7.2, hemoglobin 7.9 which is actually increased from 7.6 earlier today. Chemistry shows a potassium of 3.1, creatinine 3.97 yesterday. Patient has chronically elevated creatinine due to end-stage renal disease. Protonix 80 mg ordered for concern for GI bleed. Dr. Lema spoke with Dr. Ross who suggested patient be discharged home with repeat CBC tomorrow. Patient and concerned about going home due to weakness. Spoke with hospitalist who is agreeable for observation with repeat lab work tomorrow. Patient agreeable with plan. Discharge Plan Dx/Rx/DC Orders Clinical Impression: History of renal dialysis, History of end stage renal disease, Acute upper GI bleed, Chronic anemia Disposition Disposition: Acute Care Hospital [facility]
--- NOTE | 2023-12-24 18:42 | HP.PCM.HOS_ITS ---
HPI - General General Date of Admission: 12/24/23 Date of Service: 12/24/23 Chief Complaint: Generalized weakness/abnormal lab-worsening anemia HPI Narrative BINDU DUMONT, is a 68 M who presented to the emergency department at [facility] on 12/24/2023 with weakness and worsening anemia. Patient was recently admitted for acute GI bleed from 12/12/2023 through 12/15/2023. At that time he had an EGD that revealed a normal esophagus, small hiatal hernia and an oozing duodenal ulcers with pigmented material which were injected and treated with heater probe. He also had a nonbleeding duodenal ulcer with no stigmata of recent bleeding that was biopsied. He was maintained on Protonix 40 mg daily and Carafate at the time of discharge. Pathology has been reviewed and showed fragments of duodenal mucosa with focal congestion. He came back to the emergency department on the and was seen by the emergency department ph ysician at which time he was complaining of worsening shortness of breath with dyspnea on exertion. He is dialysis dependent and had been going to dialysis and receiving full treatments. He reported at that time that his stools were dark again but not black when he came in with bleeding ulcers. Repeat hemoglobin was assessed at that time and found to be 8.4. It was 7.8 at the time of discharge. Today he presented with worsening anemia with a hemoglobin of 7.6 done after dialysis. He reported too weak to be in the shower and reported black stools again today. He was having shortness of breath prior to dialysis today but states his breathing is much improved. He has had no nausea and vomiting no hematemesis or coffee-ground emesis. He denies any focal weakness but still feels generally weak and his is concerned about him being able to go home and take care of himself. At the time of my exam he was able to get out of bed independently and stand at the bedside without any li ghtheadedness and no assistive device. Vital signs on presentation demonstrated temperature of 97.6, heart rate 82, blood pressure is 118/69, respiratory was 16 oxygen saturations were 97% on room air. CBC showed a normal white count with a hemoglobin of 7.9 and normal platelet count. His chemistry panel revealed mild hypokalemia with potassium of 3.1 and chronically elevated serum creatinine. Stool guaiac was negative however it was negative prior to his previous scope as well despite our findings on EGD with an oozing duodenal ulcer. With his concern for weakness and slight drop in his hemoglobin the case was discussed with Dr. Ross and he recommended a repeat hemoglobin tomorrow. If hemoglobin drops we will be happy to reconsult for repeat EGD. [facility] Medical History Bursitis Cardiac disease Dialysis patient Hepatitis Kidney disease Kidney failure due to vascular disorder Migraines Problem with dialysis access Rectal bleeding Rheumatoid aortitis Rheumatoid vasculitis Smoker Subclavian aneurysm Home Medications acetaminophen 500 mg tablet 500 mg PO DAILY PAIN 11/21/19 [History Last Taken 12/12/23] amlodipine 5 mg tablet 5 mg PO BID 08/24/23 [History Last Taken 12/24/23] calcium acetate(phosphat bind) 667 mg capsule 2,668 mg PO TID 12/12/23 [History Last Taken 12/23/23] carvedilol 6.25 mg tablet 6.25 mg PO Q12H 12/12/23 [History Last Taken 12/24/23] vitamin B complex-vitamin C-folic acid 0.8 mg tablet (Nephro-Christiano) 1 tab PO Q24H 12/12/23 [History Last Taken 12/23/23] pantoprazole 40 mg tablet,delayed release 40 mg PO DAILY REFLUX #60 tabs 12/15/23 [Rx Last Taken 12/23/23] sucralfate 1 gram tablet 1 g PO BID #30 tabs 12/15/23 [Rx Last Taken 12/23/23] Allergy/AdvReac Type Severity Reaction Status Date / Time No Known Allergies Allergy Verified 12/22/23 08:18 Family History Other Cancer Diabetes Heart disease Surgical History History of bicuspid aortic valve History of umbilical hernia Hx of arteriovenostomy for renal dialysis (~12/2019) S/P knee surgery s/p subclavian graft Status post insertion of dialysis catheter (~11/2019) Social History (Updated 12/24/23 @ 18:[address] Ofelia Walls DO) household members: spouse housing: house Smoking Status: Current every day smoker tobacco type: cigarettes alcohol intake: never substance use type: does not use ROS Constitutional Constitutional: Reports fatigue, malaise and weakness; Denies anorexia, change in weight, chills, fever(s), night sweats or other Eyes Eyes: Denies blurry vision, change in eye color, change in vision, discharge from eye(s), double vision, erythema, eye pain, loss of vision or other ENT HEENT: Reports abnormal hearing and hearing loss; Denies dysphagia, ear pain, epistaxis, headache(s), nasal congestion, nasal discharge, post nasal drip, sinus pressure, sore throat or other Cardiovascular Cardiovascular: Reports edema; Denies chest pain, claudication, dyspnea on exertion, lightheadedness, orthopnea, palpitations, paroxysmal nocturnal dyspnea, rapid heart rate, syncope or other Respiratory/Chest Respiratory/Chest: Denies cough, dyspnea, excessive phlegm production, hemoptysis, productive cough, shortness of breath at rest, shortness of breath with exertion, wheezing or other Gastrointestinal Gastrointestinal: Reports other Details: Dark stools ; Denies abdominal pain, coffee ground emesis, constipation, diarrhea, dyspepsia, hematemesis, hematochezia, loose stools, melena, nausea or vomiting Genitourinary Genitourinary: Denies burning urination, difficulty urinating, dysuria, hematuria, nocturia, urinary frequency, urinary hesitancy, urinary incontinence, urinary urgency or other Musculoskeletal Musculoskeletal: Reports back pain, joint pain and other Details: Right leg cramp Neurologic Neurologic: Denies abnormal gait, abnormal speech, confusion, disequilibrium, dizziness, focal weakness, headache(s), numbness, paresthesias, seizure-like activity, seizures, syncope, tingling, tremor(s) or other Psychiatric Psychiatric: Denies anxiety, depression, homicidal ideation, suicidal ideation or other Endocrine Endocrinology: Denies change in body appearance, cold intolerance, excessive sweating, heat intolerance, polydipsia, polyuria or other Hematologic/Lymphatic Hematologic/Lymphatic: Denies anemia, easy bleeding, easy bruising, lymphadenopathy or other Allergic/Immunologic Allergic/Immunologic: Denies rhinitis, hives, eczemia, asthma or other Vital Signs Vital Signs Vital Signs: 12/24/23 16:05 12/24/23 16:14 12/24/23 17:19 Temperature 97.6 F L Temperature Source Temporal Pulse Rate 82 76 Respiratory Rate 16 13 Respiratory Effort Short of Breath Respiratory Pattern Normal Blood Pressure 118/69 115/70 Blood Pressure Mean 85 85 Pulse Ox 97 97 Oxygen Delivery Method Room Air Room Air 12/24/23 18:10 Temperature Temperature Source Pulse Rate 77 Respiratory Rate 14 Respiratory Effort Respiratory Pattern Blood Pressure 101/76 Blood Pressure Mean 84 Pulse Ox 96 Oxygen Delivery Method Room Air Weight Weight: 96.5 kg Body Mass Index (BMI) 29.7 Physical Exam Const alert, oriented x3, no apparent distress and well nourished; Negative for healthy appearing Constitutional Narrative: Abnormal age white male who appears older than stated age, sitting up in bed, appears comfortable currently, at bedside, nontoxic, appears chronically ill General Appearance: cooperative HEENT normocephalic, head/scalp atraumatic and moist oral mucous membranes HEENT Narrative: Mild hearing loss, Mallampati 2, no thrush Resp normal respiratory effort, no retractions, no use of accessory muscles and clear to auscultation bilaterally Auscultation: Negative for rales, rhonchi or wheezes Cardio regular rate, regular rhythm, S1 normal heart sound, S2 normal heart sound, no rub, no gallops and no clicks Cardio Narrative: Holosystolic murmur noted from fistula GI normal to inspection, nondistended, normoactive bowel sounds, soft to palpation and non-tender Extremity Extremity Narrative: Chronic right lower extremity edema, wraps in place, no cyanosis or clubbing Skin Skin Narrative: Left distal upper extremity fistula noted with palpable thrill and positive bruit Neuro oriented x3, moves all extremities and no focal motor deficits Neuro Narrative: Mild generalized weakness noted however patient was able to independently perform bed mobility independent stand up at the bedside without any signs of significant weakness Speech: speech normal Psych Psych Narrative: Slightly agitated at first but became more pleasant and interactive-seems frustrated with the overall situation Results Lab / Micro Data 12/24/23 16:21 12/24/23 16:21 Labs: Laboratory Results - last 24 hr 12/24/23 16:21: WBC 7.2, RBC 2.42 L, Hgb 7.9 L, Hct 25.4 L, MCV 105.0 H, MCH 32.6 H, MCHC 31.1 L, RDW Std Deviation 71.3 H, RDW Coeff of Brynn 18.6 H, Plt Count 249, MPV 11.3, Immature Gran % (Auto) 0.400, Neut % (Auto) 75.8 H, Lymph % (Auto) 10.3 L, [place] % (Auto) 11.0 H, Eos % (Auto) 1.9, Baso % (Auto) 0.6, Absolute Neuts (auto) 5.5, Absolute Lymphs (auto) 0.74 L, Nucleated RBC % 0, Platelet Estimate ADEQUATE, RBC Morphology N CHROM, Anisocytosis 1+, Macrocytosis 1+, Ovalocytes RARE, Sodium 138, Potassium 3.1 L, Chloride 96 L, Carbon Dioxide 36.0 H, Anion Gap 6, BUN 18, Creatinine 3.97 H, Estim Creat Clear Calc 21.10, Est GFR (MDRD) Af Amer 20 L, Est GFR (MDRD) Non-Af 16 L, BUN/Creatinine Ratio 4.5 L, Glucose 139 H, Calcium 8.5, Total Bilirubin 0.40, AST 12 L, ALT 10 L, Alkaline Phosphatase 51, Total Protein 6.9, Albumin 3.2, Globulin 3.7, Albumin/Globulin Ratio 0.9, Blood Type A POSITIVE, Antibody Screen NEGATIVE, Crossmatch See Detail Micro: Microbiology 12/24/23 17:45 Stool Stool Occult Blood (LAMONTE) - Final Rhythm Strip Rhythm Strip: Sinus Rhythm Rate: 78 Ectopy: None Assessment & Plan Assessment/Plan (1) Acute on chronic anemia: (2) Generalized weakness: PLAN: Plan Acute on chronic anemia -Recent EGD on 12/15/2023 that showed normal esophagus, small hiatal hernia, oozing duodenal ulcers that were injected and treated with heater probe as well as a nonbleeding duodenal ulcer -Biopsies are unremarkable -Continue Protonix but increase dose from 40 mg daily to 40 mg p.o. twice daily -Continue home Carafate -Repeat CBC in a.m. if hemoglobin drops consult Dr. Ross for repeat EGD if stable and patient does well with therapy may be able to go home -Will make n.p.o. after midnight just in case EGD is required Generalized weakness -Patient states this has been more significant since he was admitted for his GI bleed -Patient's was worried about him going home -Will have PT and OT see him and see if he may qualify for outpatient therapy or home health -Consult case management/social work End-stage renal disease on HD -Has dialysis Thursday//Thursday -Follows with Dr. Russo -Continue home phosphate binder -Continue home nephro vitamin -Will hold off on consultation to nephrology as the patient may be able to be discharged tomorrow but if not we will need to be consulted for dialysis on Thursday Hypertension -Amlodipine is on hold -Continue home carvedilol 6.25 mg grams twice daily Peptic ulcer disease -Continue Carafate and Protonix but increase Protonix to twice daily for now -Outpatient GI follow-up after discharge History of migraines -Patient's not in any chronic medication -As needed Tylenol available History of subclavian aneurysm -Status postrepair History of rheumatoid arthritis/vasculitis -Patient is not on any chronic medication for this -Continue outpatient follow-up Tobacco abuse -Recommend cessation -Nicotine patch if patient desires DVT prophylaxis -SCDs for now given recent GI bleed CODE STATUS -Full code is verified on admission Charges/Coding Visit Charges Inpatient E&M: 90969 Init Hosp L2
--- OUTSIDE RECORDS SUMMARY | 2023-12-24 21:15 | XMS RPT_ITS | CCD ---
Author Name Unknown Address [address] [place] [address] Organization [facility] Care Team Providers Care Privacy Officer Name Role Phone Preeti Emerson Unavailable Unavailable [...] Unavailable Unavailable Boshkos, Christopher Unavailable Unavailable Kuchynski, Magrarita Unavailable Unavailable KIDNEY TRANSPLANT EDUCATION, NURSE Unavailable Unavailable Kuchynski, Margarita Unavailable Unavailable Sofia, Dayday Unavailable Unavailable Jittportillo, [place] Unavailable Unavailable Margarita Shannon MD Unavailable Unavailable [...] disease (2 sources) Atherosclerotic heart disease of [place] coronary artery without angina pectoris; Translations: [Athscl heart disease of [place] coronary artery w/o ang pctrs] Onset: 06-14-2018 [...] Body mass index (BMI) [Ratio] 32.84 kg/m2 Margairta Currycecilleinderjit Work Phone: [facility] Work Phone: 07-12-2021 13:52-0400 Body surface area Derived from formula 2.25 m2 Margarita Currytristonmeenu Work Phone: [facility] Work Phone: 07-12-2021 13:52-0400 Body temperature 98 [degF] Margarita Caterinaibeth Work Phone: [facility] Work Phone: 07-12-2021 13:52-0400 Body weight 105.92 kg Margarita Padmini Work Phone: [employer] [facility] Work Phone: 07-12-2021 13:52-0400 Diastolic blood pressure 117 mm[Hg] Margarita Shannon Work Phone: [employer] [facility] Work Phone: 07-12-2021 13:52-0400 Heart rate 75 /min Margarita Shannon Work Phone: [employer] [facility] Work Phone: 07-12-2021 13:52-0400 Respiratory rate 18 /min Margarita Shannon Work Phone: [employer] [facility] Work Phone: 07-12-2021 13:52-0400 SaO2% (BldA) [Mass fraction] 96 % Margarita Shannon Work Phone: [employer] [facility] Work Phone: 07-12-2021 13:52-0400 Systolic blood pressure 183 mm[Hg] Margarita Shannon Work Phone: [employer] [facility] Work Phone: 07-12-2021 13:52-0400 7 1 Margarita Shannon Work Phone: [employer] [facility] Work Phone: Encounters Encounter Date Encounter Type Care Provider Facility Start: 09-04-2023 End: 09-04-2023 ambulatory MARGARITA CURRYCECILLESHANMEENU Facility:[facility] Start: 09-04-2023 End: 09-04-2023 Patient encounter procedure Rashad Piedra DO Work Phone: [facility] Procedures Date Procedure Procedure Detail Performing Clinician [...] Vaccine: 65+ (3 - PPSV23 or PCV20) [facility] Start: 07-10-2023 Covid-19 Vaccine () Covid-19 Vaccine () [facility] Start: 07-10-2023 Covid-19 Vaccine () Covid-19 Vaccine () [facility] Start: 07-10-2023 Influenza vaccination Influenza Vaccine (#1) [facility] Start: 11-09-2022 Advance Directive Discussion Advance Directive Discussion [facility] Start: 11-09-2022 Depression Assessment Depression Assessment [facility] Start: 10-11-2022 Diabetes Screening Diabetes Screening [facility] Start: 07-18-2022 Patient encounter procedure MCRANNUAL, Provider: Margarita Shannon, Status: Pen, Time: 2:15 PM [employer] ([employer]) Work Phone: Start: 01-10-2022 FUV, Provider: Margarita Shannon, Status: Pen, Time: 2:15 PM FUV, Provider: Margarita Shannon, Status: Pen, Time: 2:15 PM [employer] ([employer]) Work Phone: Start: 01-01-2021 Urine microalbumin profile DTaP,Tdap,Td Vaccine (2 - Td or Tdap) [facility] Start: 12-21-2020 Colonoscopy Colonoscopy [facility] Start: 12-21-2020 Colorectal Cancer Screening Colorectal Cancer Screening [facility] Start: 2015 Hepatitis B Vaccine (1 of 3 - Risk 3-dose series) Hepatitis B Vaccine (1 of 3 - Risk 3-dose series) [facility] Start: 2015 RSV Vaccine (1 - 1-dose 60+ series) RSV Vaccine (1 - 1-dose 60+ series) [facility] Start: 2010 Prostate Cancer Screening Discussion Prostate Cancer Screening Discussion [facility] Start: 2000 Cologuard (FIT-DNA) Cologuard (FIT-DNA) [facility] Start: [address] Colonography [facility] Start: 2000 Fecal Occult Blood Fecal Occult Blood [facility] Start: 2000 Sigmoidoscopy Sigmoidoscopy [facility] Start: 1990 Lipid 1996 panel - Serum or Plasma Lipid Screening [facility] Start: 1974 Hepatitis A Vaccine (1 of 2 - Risk 2-dose series) Hepatitis A Vaccine (1 of 2 - Risk 2-dose series) [facility] Start: 1974 Shingrix Vaccine (1 of 2) Shingrix Vaccine (1 of 2) [facility] Start: 1974 Urine microalbumin profile DTaP,Tdap,Td Vaccine (1 - Tdap) [facility] Start: 1973 Hepatitis C Screening Hepatitis C Screening [facility] Start: 1961 Pneumococcal Vaccine: 65+ (1 - PCV) Pneumococcal Vaccine: 65+ (1 - PCV) [facility] Start: 1955 Abdominal Aortic Aneurysm Screening Abdominal Aortic Aneurysm Screening [facility] End: 09-30-2024 XR SHOULDER GENERAL 3V OR MORE AP/TRUE AP/OTHER RIGHT XR SHOULDER GENERAL 3V OR MORE AP/TRUE AP/OTHER RIGHT Radiology Routine Right shoulder pain, unspecified chronicity 1 Occurrences starting 09/01/2023 until 09/30/2024 [facility] Work Phone: Immunizations Immunization Date Immunization Notes Care Provider Siva zamora 09-12-2021 Moderna COVID-19 Vac cine 100 MCG/0.5ML Intramuscular Suspension Margarita Shannon Work Phone: [facility] Work Phone: 02-08-2021 Moderna COVID-19 Vac cine 100 MCG/0.5ML Intramuscular Suspension Margarita Shannon Work Phone: [facility] Work Phone: 01-11-2021 Moderna COVID-19 Vac cine 100 MCG/0.5ML Intramuscular Suspension Margarita Shannon Work Phone: [facility] [facility] Work Phone: 01-11-2021 Pfizer-BioNTech COVI D-19 Vacc 30 MCG/0.3ML Intramuscular Suspension Margarita Shannon MD [facility] Work Phone: Payers Date Payer Category Payer Unknown 2020 Unknown [id number] 2006 Medicare 2003 Medicare [id number] 1955 Unknown [id number] [id number] 1955 Unknown [id number] [id number] [id number] 1955 Unknown [id number] 2.16.8 [id number] 1955 Unknown [id number] 2.16.8 [id number] 1955 Unknown [id number] 2.16.8 [id number] 1955 Unknown [id number] 2.16.8 [id number] 1955 Unknown [id number] [id number] Social History Date Type Detail Facility Start: 10-09-2021 End: 09-04-2023 Former tobacco use Former tobacco use [facility] Work Phone: Start: 10-09-2021 Tobacco smoking status FLIS Smokes tobacco daily [facility] History of tobacco use Cigarette Smoker [facility] Start: 10-09-2021 Tobacco use and exposure Smokeless tobacco non-user [facility] Start: 10-09-2021 End: 09-04-2023 Alcohol intake Lifetime non-drinker (finding) [facility] Start: 10-09-2021 End: 09-04-2023 Tobacco use panel [facility] National Score (1-100), lower number is lower risk Not on file [facility] Start: 1955 Sex Assigned At Not on file [facility] NEGATED: Highlighted row - - [facility] Work Phone: Functional Status Date Assessment Result Facility NEGATED: Highlighted row Functional performance Functional status health issues are not documented Disease EX[facility] Work Phone: Mental Status Date Assessment Result Facility NEGATED: Highlighted row Cognitive function [Interpretation] Cognitive status health issues are not documented Disease TX-[facility]yl[facility] Work Phone: Clinical Notes 09-04-2023 Rashad Piedra V, DO - 09/04/2023 2:41 PM EDTRafferNy bright Ma M - 09/04/2023 2:01 PM EDFederica Patel RT(R) - 09/04/2023 1:40 PM EDT Note Date & Type Note Facility 09-04-2023 Note HNO ID: [id number] Author: Rashad Piedra V, DO Service: ? [...] shoulder joint Informed Consent Consent Obtained: Verbal Thurman Protocol A moment to CARE was completed. [...] understanding of these instructions. Rashad Piedra DO [facility] 09-04-2023 Note HNO ID: [id number] Author: Ny Sylvester Ma Service: ? Author [...] outside the home. New x-ray today at [facility]. [facility] 09-04-2023 Note HNO ID: [id number] Author: Federica Mai RT(R) Service: ? Author [...] RT Aide(R) September 04, 2023 1:55 PM [facility] 09-04-2023 History of Present illness Narrative Associated [...] shoulder joint Informed Consent Consent Obtained: Verbal Thurman Protocol A moment to CARE was completed. [...] outside the home. New x-ray today at [facility]. 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 takes tylenol. [employer] [facility] [email or web address] Phone: Instructions* Name Dates Details Instructions not documented [email or web address] Phone: [facility] for referral (narrative)* Diagnostic Procedure Only (Routine) - Pending Review Specialty Diagnoses / Procedures Referred By Jennifer t Referred To Contact XR IMAGING Diagnoses Right shoulder pain, unspecified chronicity Procedures XR SHOULDER GENERAL 3V OR MORE AP/TRUE AP/OTHER RIGHT RADEX SHOULDER COMPLETE MINIMUM 2 VIEWS Rashad Piedra V, DO [address] [place] [address] [place] [address] Referral ID Status Reason Start Date Expiration Date Visits Requested Visits Authorized [id number] Pending Review Auto-Generat ed Referral 09/30/2024 1 1 [facility] for referral (narrative)* Diagnostic Procedure Only (Routine) - Closed Specialty Diagnoses / Procedures Referred By Jennifer t Referred To Contact XR IMAGING Diagnoses Right shoulder pain, unspecified chronicity Procedures XR SHOULDER GENERAL 3V OR MORE AP/TRUE AP/OTHER RIGHT RADEX SHOULDER COMPLETE MINIMUM 2 VIEWS Rashad Piedra V, DO [address] [place] [address] [place] [address] Referral ID Status Reason Start Date Expiration Date V isits Requested Visits Authorized [id number] Closed Auto-Generate d Referral 09/01/2023 09/30/2024 1 1 [facility] for visit Narrative* Diagnostic Procedure Only (Routine) - Closed Specialty Diagnoses / Procedures Referred By Contac t Referred To Contact XR IMAGING Diagnoses Right shoulder pain, unspecified chronicity Procedures XR SHOULDER GENERAL 3V OR MORE AP/TRUE AP/OTHER RIGHT RADEX SHOULDER COMPLETE MINIMUM 2 VIEWS Rashad Piedra V, DO [address] [place] [address] [place] [address] Referral ID Status Reason Start Date Expiration Date V isits Requested Visits Authorized [id number] Closed Auto-Generate d Referral 09/01/2023 09/30/2024 1 1 [facility] Summary Purpose Family History Unknown Family [...] DATE CREATED AUTHOR AUTHOR'S ORGANIZ ATION 11/03/2018 [facility] DATE CREATED AUTHOR AUTHOR'S ORGANIZ ATION 11/19/2018 [facility] DATE CREATED AUTHOR AUTHOR'S ORGANIZ ATION 06/03/2020 [facility] DATE CREATED AUTHOR AUTHOR'S ORGANIZ ATION 07/14/2021 [employer] DATE CREATED AUTHOR AUTHOR'S ORGANIZ ATION 12/10/2021 [facility] DATE CREATED AUTHOR AUTHOR'S ORGANIZ ATION 09/08/2023 [facility] Source Comments (unrecognize d section and content) In the event this informatio n is protected by the Federal Confidentiality of Alcohol and Drug Abuse Patient Records regulations: The Federal rules restrict any use of the information to criminally investigate or prosecute any alcohol or drug abuse patient.[facility] the event this information is protected by the Federal Confidentiality of Alcohol and Drug Abuse Patient Records regulations: The Federal rules restrict any use of the information to criminally investigate or prosecute any alcohol or drug abuse patient.[facility] the event this information is protected by the Federal Confidentiality of Alcohol and Drug Abuse Patient Records regulations: The Federal rules restrict any use of the information to criminally investigate or prosecute any alcohol or drug abuse patient.[facility] Care Teams (unrecognized sec tion and content) Privacy Officer Relationship Specialty Start Date End Date Margarita Shannon MD [address] [address] PCP - General 01/23/03 Reason for Visit [...] BE BASED ON THE PRIMARY CLINICAL RECORDS. [facility] [facility]. provides no warranty or guarantee of the accuracy or completeness of information in this document.
[2023-12-24] MEDS: Calcium Acetate 667 MG Capsule 2668 MG PO (22:33)
[2023-12-24] MEDS: Carvedilol 6.25 MG Tablet PO (22:34)
[2023-12-24] MEDS: Pantoprazole Sodium 40 MG Tablet PO (22:35)
[2023-12-25] VITALS (7 sets, daily range): BP systolic 101–122; BP diastolic 68–77; PULSE 67–80; RESP 16; TEMP 36.8–37.3; O2SAT 94–99; BMI 29.3
[2023-12-25 05:53] LABS: Absolute Lymphocyte Count 1.02 X10^3/uL (0.83-4.51); Absolute Neutrophil Count 3.8 X10^3/uL (2.0-7.7); Basophil# 0.04 X10^3/uL; Basophil% 0.7 % (0-1); Eosinophil# 0.15 X10^3/uL; Eosinophils% 2.5 % (0-5); Hematocrit 24.1 % (40-54); Hemoglobin 7.3 g/dL (13.0-16.5); Lymphocyte # 1.02 X10^3/ul (0.83-4.51); Lymphocyte % 17.2 % (19-41); Mean Corp Hgb Conc 30.3 g/dL (32-36); Mean Corpuscular Volume 105.7 fL (80-94); Mean Platelet Vol. 11.1 fl (6.2-12.0); Monocyte# 0.94 X10^3/uL; Monocyte% 15.9 % (0-10); NRBC Flagged by Analyzer 0.3 % (0-5); Neutrophil # 3.75 X10^3/uL (2.7-7.7); Neutrophil % 63.4 % (47-70); POSITIVE MORPHOLOGY YES; Platelet Count 218 K/mm3 (150-450); RBC Distribution Width CV 18.5 % (11.6-14.6); RBC Distribution Width SD 71.1 fl (35.1-43.9); Red Blood Count 2.28 M/mm3 (4.6-6.2); White Blood Count 5.9 K/mm3 (4.4-11.0)
[2023-12-25 06:00] LABS: Differential Indicated SCAN CRITERIA MET
[2023-12-25] MEDS: Sucralfate 1 GM Tablet PO ×2 (06:20→15:21)
[2023-12-25 06:32] LABS: Differential Comment SCANNED
[2023-12-25 06:33] LABS: Anisocytosis 2+
[2023-12-25] MEDS: Carvedilol 6.25 MG Tablet PO ×2 (08:06→19:48)
[2023-12-25] MEDS: Acetaminophen 500 MG Tablet PO (08:06)
[2023-12-25] MEDS: Pantoprazole Sodium 40 MG Tablet PO ×2 (08:06→19:48)
[2023-12-25] MEDS: Folic Acid/Vitamin B Comp W-C 1 Capsule 1 CAP PO (08:06)
[2023-12-25] MEDS: Electrolyte Solution/Peg's 4000 ML 2000 ML PO (15:21)
--- NOTE | 2023-12-25 17:30 | CON.PCM.GI_ITS ---
HPI Consult Data Date of Consult: 12/25/23 HPI Narrative Reason for Consultation: Anemia HPI Narrative: BINDU DUMONT, is a 68 M who presented to the emergency department at [facility] on 12/24/2023 with weakness and worsening anemia. Patient was recently admitted for acute GI bleed from 12/12/2023 through 12/15/2023. At that time he had an EGD that revealed a normal esophagus, small hiatal hernia and an oozing duodenal ulcers with pigmented material which were injected and treated with heater probe. He also had a nonbleeding duodenal ulcer with no stigmata of recent bleeding that was biopsied. He was maintained on Protonix 40 mg daily and Carafate at the time of discharge. Pathology has been reviewed and showed fragments of duodenal mucosa with focal congestion. He came back to the emergency department on the and was seen by the emergency department physician at which time he was complaining of worsening shortness of breath with dyspnea on exertion. He is dialysis dependent and had been going to dialysis and receiving full treatments. He reported at that time that his stools were dark again but not black when he came in with bleeding ulcers. Repeat hemoglobin was assessed at that time and found to be 8.4. It was 7.8 at the time of discharge. Today he presented with worsening anemia with a hemoglobin of 7.6 done after dialysis. He reported too weak to be in the shower and reported black stools again today. He was having shortness of breath prior to dialysis today but states his b reathing is much improved. He has had no nausea and vomiting no hematemesis or coffee-ground emesis. He denies any focal weakness but still feels generally weak and his is concerned about him being able to go home and take care of himself. At the time of my exam he was able to get out of bed independently and stand at the bedside without any lightheadedness and no assistive device. Vital signs on presentation demonstrated temperature of 97.6, heart rate 82, blood pressure is 118/69, respiratory was 16 oxygen saturations were 97% on room air. CBC showed a normal white count with a hemoglobin of 7.9 and normal platelet count. His chemistry panel revealed mild hypokalemia with potassium of 3.1 and chronically elevated serum creatinine. Stool guaiac was negative however it was negative prior to his previous scope as well despite our findings on EGD with an oozing duodenal ulcer. With his concern for weakness and slight drop in his hemoglobin I recommended EGD and colonoscopy. [facility] Medical History Bursitis Cardiac disease Dialysis patient Hepatitis Kidney disease Kidney failure due to vascular disorder Migraines Problem with dialysis access Rectal bleeding Rheumatoid aortitis Rheumatoid vasculitis Smoker Subclavian aneurysm Home Medications acetaminophen 500 mg tablet 500 mg PO DAILY PAIN 11/21/19 [History Last Taken 12/12/23] amlodipine 5 mg tablet 5 mg PO BID 08/24/23 [History Last Taken 12/24/23] calcium acetate(phosphat bind) 667 mg capsule 2,668 mg PO TID 12/12/23 [History Last Taken 12/23/23] carvedilol 6.25 mg tablet 6.25 mg PO Q12H 12/12/23 [History Last Taken 12/24/23] vitamin B complex-vitamin C-folic acid 0.8 mg tablet (Nephro-Christiano) 1 tab PO Q24H 12/12/23 [History Last Taken 12/23/23] pantoprazole 40 mg tablet,delayed release 40 mg PO DAILY REFLUX #60 tabs 12/15/23 [Rx Last Taken 12/23/23] sucralfate 1 gram tablet 1 g PO BID #30 tabs 12/15/23 [Rx Last Taken 12/23/23] Allergy/AdvReac Type Severity Reaction Status Date / Time No Known Allergies Allergy Verified 12/22/23 08:18 Family History Other Cancer Diabetes Heart disease Surgical History History of bicuspid aortic valve History of umbilical hernia Hx of arteriovenostomy for renal dialysis (~12/2019) S/P knee surgery s/p subclavian graft Status post insertion of dialysis catheter (~11/2019) Social History (Updated 12/24/23 @ 18:[address] Ofelia Walls DO) household members: spouse housing: house Smoking Status: Current every day smoker tobacco type: cigarettes alcohol intake: never substance use type: does not use ROS Constitutional Constitutional: Reports fatigue, malaise and weakness; Denies anorexia, change in weight, chills, fever(s), night sweats or other Eyes Eyes: Denies blurry vision, change in eye color, change in vision, discharge from eye(s), double vision, erythema, eye pain, loss of vision or other ENT HEENT: Reports abnormal hearing and hearing loss; Denies dysphagia, ear pain, epistaxis, headache(s), nasal congestion, nasal discharge, post nasal drip, sinus pressure, sore throat or other Cardiovascular Cardiovascular: Reports edema; Denies chest pain, claudication, dyspnea on exertion, lightheadedness, orthopnea, palpitations, paroxysmal nocturnal dyspnea, rapid heart rate, syncope or other Respiratory/Chest Respiratory/Chest: Denies cough, dyspnea, excessive phlegm production, hemoptysis, productive cough, shortness of breath at rest, shortness of breath with exertion, wheezing or other Gastrointestinal Gastrointestinal: Reports other Details: Dark stools ; Denies abdominal pain, coffee ground emesis, constipation, diarrhea, dyspepsia, hematemesis, hematochezia, loose stools, melena, nausea or vomiting Genitourinary Genitourinary: Denies burning urination, difficulty urinating, dysuria, hematuria, nocturia, urinary frequency, urinary hesitancy, urinary incontinence, urinary urgency or other Musculoskeletal Musculoskeletal: Reports back pain, joint pain and other Details: Right leg cramp Neurologic Neurologic: Denies abnormal gait, abnormal speech, confusion, disequilibrium, dizziness, focal weakness, headache(s), numbness, paresthesias, seizure-like activity, seizures, syncope, tingling, tremor(s) or other Psychiatric Psychiatric: Denies anxiety, depression, homicidal ideation, suicidal ideation or other Endocrine Endocrinology: Denies change in body appearance, cold intolerance, excessive sweating, heat intolerance, polydipsia, polyuria or other Hematologic/Lymphatic Hematologic/Lymphatic: Denies anemia, easy bleeding, easy bruising, lymphadenopathy or other Allergic/Immunologic Allergic/Immunologic: Denies rhinitis, hives, eczemia, asthma or other Physical Exam Const alert, oriented x3, no apparent distress and well nourished; Negative for healthy appearing Constitutional Narrative: Abnormal age white male who appears older than stated age, sitting up in bed, appears comfortable currently, at bedside, nontoxic, appears chronically ill General Appearance: cooperative HEENT normocephalic, head/scalp atraumatic and moist oral mucous membranes HEENT Narrative: Mild hearing loss, Mallampati 2, no thrush Resp normal respiratory effort, no retractions, no use of accessory muscles and clear to auscultation bilaterally Auscultation: Negative for rales, rhonchi or wheezes Cardio regular rate, regular rhythm, S1 normal heart sound, S2 normal heart sound, no rub, no gallops and no clicks Cardio Narrative: Holosystolic murmur noted from fistula GI normal to inspection, nondistended, normoactive bowel sounds, soft to palpation and non-tender Extremity Extremity Narrative: Chronic right lower extremity edema, wraps in place, no cyanosis or clubbing Skin Skin Narrative: Left distal upper extremity fistula noted with palpable thrill and positive bruit Neuro oriented x3, moves all extremities and no focal motor deficits Neuro Narrative: Mild generalized weakness noted however patient was able to independently perform bed mobility independent stand up at the bedside without any signs of significant weakness Speech: speech normal Psych Psych Narrative: Slightly agitated at first but became more pleasant and interactive-seems frustrated with the overall situation Lab / Micro Data 12/25/23 05:09 12/24/23 16:21 Labs: Laboratory Results - last 24 hr 12/24/23 16:21: Blood Type A POSITIVE, Antibody Screen NEGATIVE, Crossmatch See Detail 12/25/23 05:09: WBC 5.9, RBC 2.28 L, Hgb 7.3 L, Hct 24.1 L, MCV 105.7 H, MCH 32.0, MCHC 30.3 L, RDW Std Deviation 71.1 H, RDW Coeff of Brynn 18.5 H, Plt Count 218, MPV 11.1, Immature Gran % (Auto) 0.300, Neut % (Auto) 63.4, Lymph % (Auto) 17.2 L, [place] % (Auto) 15.9 H, Eos % (Auto) 2.5, Baso % (Auto) 0.7, Absolute Neuts (auto) 3.8, Absolute Lymphs (auto) 1.02, Nucleated RBC % 0.3, Differential Comment SCANNED, Anisocytosis 2+ Micro: Microbiology 12/24/23 17:45 Stool Stool Occult Blood (LAMONTE) - Final Rhythm Strip Rhythm Strip: Sinus Rhythm Rate: 78 Ectopy: None Assessment & Plan Assessment/Plan (1) Acute on chronic anemia: (2) Generalized weakness: PLAN: Plan 68-year-old gentleman with past medical history of CKD resulting in end-stage renal disease on dialysis, anemia of chronic disease, rheumatoid arthritis, GI bleed who presents with worsening fatigue and weakness and discovered to have decreased hemoglobin and Hemoccult positive stools. Recommend upper endoscopy and colonoscopy evaluate his upper and lower GI tract. If that is normal then we will have to have capsule endoscopy. He was explained alternatives, risk, benefits including not withstanding bleeding, in fection, sepsis, perforation, need for emergent urgent . He will have an ASA of 3. Peptic ulcer disease -Continue Carafate and Protonix but increase Protonix to twice daily for now -Outpatient GI follow-up after discharge Charges/Coding Visit Charges Inpatient E&M: 07969 Init Hosp L3
--- NOTE | 2023-12-25 18:04 | PCM.CONS.R ---
Assessment & Plan Assessment/Plan (1) ESRD needing dialysis: (2) Acute on chronic anemia: (3) Secondary hyperparathyroidism: PLAN: Plan Impression/Plan: The patient is a 68-year-old man with past history of ESRD, hypertension, and osteoarthritis. Patient presented to hospital on 12/24/2023 with with fatigue and acute on chronic anemia. He was found to have hemoglobin of 7.6 g/dL on 12/24/2023. The patient was just admitted to hospital tween 12/12/2023 until 12/15/2023 with upper GI bleed. The patient being evaluated for recurrent GI bleed. He is scheduled for repeat EGD and colonoscopy on 12/26/2023 with automation lead. Nephrology is following for ESRD. ESRD. The patient usually dialyzes at [facility] on TTS. I arrange for dialysis tomorrow on his usual schedule after GI workup. Acute blood loss anemia. Patient being evaluated for GI bleed. He is scheduled for repeat EGD and for colonoscopy tomorrow with Dr. Ross. Will continue HERMINIO with dialysis as outpatient. Secondary hyperparathyroidism. The patient is on calcium acetate with meals. Recheck calcium/phosphorus tomorrow. HPI Consult Data Date of Consult: 12/25/23 HPI Narrative Reason for Consultation: ESRD HPI Narrative: BINDU DUMONT, is a 68-year-old man with past history of ESRD, hypertension, and osteoarthritis. Patient was recently admitted to the hospital between 12/12/2023 until 12/15/2023 with GI bleed attributed to duodenal ulcer. The patient presents to hospital again on on 12/24/2023 with weakness and recurrent acute blood loss anemia. Hemoglobin was 7.6 g/dL on presentation on 12/24/2023. On 12/22/2023, hemoglobin was 8.4 g/dL. Nephrology is asked see the patient because of ESRD and need for dialysis management. The patient dialyzes at [facility] on TTS. He is followed there by my partner, Dr. Russo. The patient reports fatigued. He is undergoing bowel prep for colonoscopy which is scheduled for tomorrow. He denies current chest pain, shortness of breath, nausea, or vomiting. There is some edema of the lower extremity which has not increased in severity over her usual baseline. The patient did receive dialysis at his outpatient dialysis center yesterday. [facility] Medical History Bursitis Cardiac disease Dialysis patient Hepatitis Kidney disease Kidney failure due to vascular disorder Migraines Problem with dialysis access Rectal bleeding Rheumatoid aortitis Rheumatoid vasculitis Smoker Subclavian aneurysm Home Medications acetaminophen 500 mg tablet 500 mg PO DAILY PAIN 11/21/19 [History Last Taken 12/12/23] amlodipine 5 mg tablet 5 mg PO BID 08/24/23 [History Last Taken 12/24/23] calcium acetate(phosphat bind) 667 mg capsule 2,668 mg PO TID 12/12/23 [History Last Taken 12/23/23] carvedilol 6.25 mg tablet 6.25 mg PO Q12H 12/12/23 [History Last Taken 12/24/23] vitamin B complex-vitamin C-folic acid 0.8 mg tablet (Nephro-Christiano) 1 tab PO Q24H 12/12/23 [History Last Taken 12/23/23] pantoprazole 40 mg tablet,delayed release 40 mg PO DAILY REFLUX #60 tabs 12/15/23 [Rx Last Taken 12/23/23] sucralfate 1 gram tablet 1 g PO BID #30 tabs 12/15/23 [Rx Last Taken 12/23/23] Allergy/AdvReac Type Severity Reaction Status Date / Time No Known Allergies Allergy Verified 12/22/23 08:18 Family History Other Cancer Diabetes Heart disease Surgical History History of bicuspid aortic valve History of umbilical hernia Hx of arteriovenostomy for renal dialysis (~12/2019) S/P knee surgery s/p subclavian graft Status post insertion of dialysis catheter (~11/2019) Social History (Updated 12/24/23 @ 18:[address] Ofelia Walls DO) household members: spouse housing: house Smoking Status: Current every day smoker tobacco type: cigarettes alcohol intake: never substance use type: does not use Physical Exam Narrative General: Alert and oriented x3, NAD. HEENT: Normocephalic, atraumatic. Mucous membrane moist without erythema. PERRLA, EOMI. Hearing is intact. Neck: Supple, no JVD. Trachea is midline. No thyromegaly or lymphadenopathy. Cardiovascular: Normal S1, S2. No rubs, murmurs, or gallops. Respiratory: Clear to auscultation bilaterally. No wheezing, rhonchi, or rales. Abdomen: Normal bowel sounds, soft, nontender, no guarding or rebound, no organomegaly. Extremities: No clubbing or cyanosis. There is trace edema lower extremities bilaterally.. Musculoskeletal: Full passive range of motion, no joint swelling. Psychiatric: Normal mood and affect. Skin: Warm and dry, no rash. Neurologic: Cranial nerve II to XII are grossly intact. No focal neurologic deficits. Lab / Micro Data 12/25/23 05:09 12/24/23 16:21 Labs: Laboratory Results - last 24 hr 12/24/23 16:21: Blood Type A POSITIVE, Antibody Screen NEGATIVE, Crossmatch See Detail 12/25/23 05:09: WBC 5.9, RBC 2.28 L, Hgb 7.3 L, Hct 24.1 L, MCV 105.7 H, MCH 32.0, MCHC 30.3 L, RDW Std Deviation 71.1 H, RDW Coeff of Brynn 18.5 H, Plt Count 218, MPV 11.1, Immature Gran % (Auto) 0.300, Neut % (Auto) 63.4, Lymph % (Auto) 17.2 L, [place] % (Auto) 15.9 H, Eos % (Auto) 2.5, Baso % (Auto) 0.7, Absolute Neuts (auto) 3.8, Absolute Lymphs (auto) 1.02, Nucleated RBC % 0.3, Differential Comment SCANNED, Anisocytosis 2+ Micro: Microbiology 12/24/23 17:45 Stool Stool Occult Blood (LAMONTE) - Final Rhythm Strip Rhythm Strip: Sinus Rhythm Rate: 78 Ectopy: None
--- NOTE | 2023-12-25 18:34 | PCM.PN.HOSP ---
Reason for Visit Reason for Visit: Diagnoses Anemia, unspecified (12/25/23) End stage renal disease (12/25/23) Secondary hyperparathyroidism of renal origin (12/25/23) Weakness (12/25/23) Dependence on renal dialysis (12/25/23) Subjective Subjective Patient was seen and examined today, I talked with him and his , he will need to go undergo an EGD and a colonoscopy, he will be prepped for the procedures tomorrow morning. Patient will also need dialysis tomorrow morning. Patient's hemoglobin dropped slightly this morning as compared with yesterday. Objective Data Objective Data Vital Signs: Vital Signs Temp Pulse Resp BP Pulse Ox O2 Del Method 98.7 F 67 16 101/68 94 Room Air 12/25/23 14:46 12/25/23 14:46 12/25/23 14:46 12/25/23 14:46 12/25/23 14:46 12/25/23 14:46 Oxygen Delivery Method Room Air Weight: 95.5 kg Body Mass Index (BMI) 29.3 Intake & Output: Intake and Output for Last 24 Hours 12/23/23 12/24/23 12/25/23 23:59 23:59 23:59 Intake Total 35 / 35 1100 / 1100 Balance 35 / 35 1100 / 1100 Lab / Micro Data 12/25/23 05:09 12/24/23 16:21 Labs: Laboratory Results - last 24 hr 12/25/23 05:09: WBC 5.9, RBC 2.28 L, Hgb 7.3 L, Hct 24.1 L, MCV 105.7 H, MCH 32.0, MCHC 30.3 L, RDW Std Deviation 71.1 H, RDW Coeff of Brynn 18.5 H, Plt Count 218, MPV 11.1, Immature Gran % (Auto) 0.300, Neut % (Auto) 63.4, Lymph % (Auto) 17.2 L, [place] % (Auto) 15.9 H, Eos % (Auto) 2.5, Baso % (Auto) 0.7, Absolute Neuts (auto) 3.8, Absolute Lymphs (auto) 1.02, Nucleated RBC % 0.3, Differential Comment SCANNED, Anisocytosis 2+ Micro: Microbiology 12/24/23 17:45 Stool Stool Occult Blood (LAMONTE) - Final Rhythm Strip Rhythm Strip: Sinus Rhythm Rate: 78 Ectopy: None Physical Exam Const alert, oriented x3 and no apparent distress General Appearance: cooperative, well kempt and well developed Orientation / Consciousness: awake, oriented to person, oriented to place and oriented to time HEENT normocephalic and moist oral mucous membranes Eyes PERRL, EOMs intact bilaterally and conjunctivae normal Neck supple, no JVD, thyroid normal and no carotid bruits General: trachea midline Resp normal respiratory effort, no retractions, no use of accessory muscles and clear to auscultation bilaterally Auscultation: Negative for rales, rhonchi or wheezes Cardio regular rate, regular rhythm, no rub and no gallops Cardio Narrative: 2/6 systolic murmur is noted at the right sternal border GI normal to inspection, nondistended, normoactive bowel sounds, soft to palpation, non-tender and non-distended Extremity no clubbing, cyanosis or edema Skin no rashes or lesions noted General Skin Exam: no breakdown Neuro oriented x3, CN's II-XII intact bilaterally, moves all extremities, no focal motor deficits and no sensory deficits noted Sensorium / Orientation: awake and alert Speech: speech normal Psych affect normal Assessment & Plan Assessment/Plan (1) Acute on chronic anemia: PLAN: Plan 1. Acute on chronic anemia-secondary to suspected GI blood loss, patient will undergo an EGD and a colonoscopy tomorrow, labs will be repeated tomorrow morning #2 #2 end-stage renal disease on hemodialysis-patient will be dialyzed tomorrow #3 essential hypertension-patient is on carvedilol, his amlodipine is being held due to concerns of it causing low blood pressure #4 peptic ulcer disease-patient will continue Carafate and Protonix twice a day #5 bicuspid aortic valve #6 melena secondary to GI bleed-exact location unknown at this time, again patient will undergo an EGD and a colonoscopy tomorrow Total clinical time spent by myself addressing the patient's medical issues, reviewing all of his data, and collaborating with patient's care team: 35 minutes Charges/Coding Visit Charges Inpatient E&M: 53991 Subs Hosp L2
[2023-12-26] VITALS (21 sets, daily range): BP systolic 80–266; BP diastolic 46–88; PULSE 64–88; RESP 16–86; TEMP 35.5–37; O2SAT 94–97; BMI 29.3; BMI 28.5
--- NOTE | 2023-12-26 | COLBX_PTH ---
PATHOLOGY RESULTS PATIENT: BINDU DUMONT LOC: MS3 U#:[id number] AGE/SX: 68/M ROOM: OK319 RE12/25/[address]: Dr. Juan Irene DO : 1955 BED: 1 DIS: 12/26/2023 SPEC #: [id number] RECD: 12/28/23 05:43 STATUS: DALE BAER #: [id number] SHELBY: 12/26/23 00:[address]: Cade Ross DEPT: SURGICAL PATHOLOGY RECD BY: Agustin Hendrickson ENTERED: 12/28/23 08:01 SP TYPE: COLON BX OTHR DR: DO Dr. Bekah Mcghee MD Dr. Mark Tereletsky, DO Tissues: Descending colon Procedures: Surgery Specimen Level IV Comments: @ Ordering doctor for SUIV edited from to @ by CATHY at 12/28/23 1443 @ Submitting doctor edited from to @ by CATHY at 12/28/23 1443 HEADER OPERATION: Colonoscopy with polypectomy, EGD with bipolar electrohemostasis PRE-OP DIAGNOSIS: Acute on chronic anemia, generalized weakness TISSUE SUBMITTED: Descending colon polyp MICROSCOPIC DIAGNOSIS Descending colon polyp, biopsy: Tubular adenoma. AM:luis miguel 12/29/2023 MICROSCOPIC DESCRIPTION Slides are reviewed. GROSS DESCRIPTION Received in fixative is one container labeled with the patient's name and designated descending colon polyp. The specimen consists of a hermosillo-pink polyp measuring 0.7 x 0.6 x 0.3 cm. The specimen is totally submitted in one cassette. / SJ:luis miguel 12/28/2023 TC:5 CPT: 77266
[2023-12-26] MEDS: Sucralfate 1 GM Tablet PO (06:06)
[2023-12-26 06:36] LABS: Absolute Lymphocyte Count 0.99 X10^3/uL (0.83-4.51); Basophil# 0.03 X10^3/uL; Basophil% 0.5 % (0-1); Eosinophil# 0.12 X10^3/uL; Hematocrit 24.4 % (40-54); Hemoglobin 7.8 g/dL (13.0-16.5); Lymphocyte # 0.99 X10^3/ul (0.83-4.51); Lymphocyte % 16.7 % (19-41); Mean Corpuscular Hgb 32.9 pg (27.0-32.0); Monocyte% 13.5 % (0-10); NRBC Flagged by Analyzer 0 % (0-5); Neutrophil # 3.98 X10^3/uL (2.7-7.7); POSITIVE MORPHOLOGY YES; Platelet Count 228 K/mm3 (150-450); RBC Distribution Width CV 17.9 % (11.6-14.6); Red Blood Count 2.37 M/mm3 (4.6-6.2); White Blood Count 5.9 K/mm3 (4.4-11.0)
[2023-12-26 06:40] LABS: Differential Indicated SCAN CRITERIA MET
[2023-12-26 07:08] LABS: Anisocytosis 3+
[2023-12-26 07:28] LABS: Albumin, Serum 3.1 g/dL (3.2-5.0); BUN 36 mg/dL (7-18); BUN/Creat Ratio 4.8 RATIO (10-20); Calcium,Total 9.1 mg/dL (8.5-10.1); Chloride 95 mmol/L (98-107); Creatinine, Serum 7.45 mg/dL (0.70-1.30); EST Glomerular Filtration Rate 8 mL/min (>60); Est Glom Filt Rate - Afr Amer 9 mL/min (>60); Estimated Creatinine Clearance 11.19 ml/min; Glucose 86 mg/dL (74-106); Phosphorus 5.2 mg/dL (2.5-4.9); Potassium 3.6 mmol/L (3.5-5.1); Sodium Level 135 mmol/L (136-145)
[2023-12-26] MEDS: PureFlow B 3K Dialysis Soln 1 BAG 6 BAG PF (08:36)
--- NOTE | 2023-12-26 09:19 | CASEMGMT ---
REBECCA REDMOND Readmission Review/Discharge Planning: Index: 12/12 thru 12/15/23 Dx: Anemia DC Disposition: Home with spouse support Readmission: 12/24/23 obs, changed to inpt 12/25/23 Dx: Anemia Pt with comorbidities including ESRD, HTN, PUD, and RA was admitted on the above noted dates for the corresponding noted dx's. Pt underwent EGD on index with tx for oozing duodenal ulcers. Pt with ESRD and attends HD at the [facility] TTS at 0915. Pt is independent at baseline without DME or previous HH or SNF providers. Pt returned home at index with the support of his spouse without DC needs identified. Pt returned with recurrent GI bleeding noted. This RN NYLA met with pt face to face. Pt states he had been doing well after discharge but then began to feel weaker and weaker. States they checked his Hgb at HD and was directed to be seen in the ED. Pt's questions answered and support provided. Pt states he would be interested in outpt therapy at discharge to help increase his strength. Order received from Dr. Irene for PT/OT evaluations which were entered. Script for oupt tx placed on chart with green sheet if pt discharged to home this weekend. Pt awaiting EGD and colonoscopy after HD this date to determine next steps in his treatment plan. DC Plan: Return home with outpt tx and spouse support. Greta Poe RN AC
[2023-12-26] MEDS: Carvedilol 6.25 MG Tablet PO (11:13)
--- NOTE | 2023-12-26 13:21 | OP.EGD_ITS ---
Patient Name: Barry Joe Procedure Date: 12/26/2023 12:00 PM Date of : 1955 Age: 68 Procedure: Upper GI endoscopy Indications: Iron deficiency anemia, Hematochezia, Melena Providers: Cade Ross DO Referring MD: Ofelia Walls DO Medicines: Monitored Anesthesia Care Patient Profile: This is a 68 year old male. Refer to note in patient chart for documentation of history and physical. Patient has symptoms. Complications: No immediate complications. Procedure: Pre-Anesthesia Assessment: - Prior to the procedure, a History and Physical was performed, and patient medications and allergies were reviewed. The patient is competent. The risks and benefits of the procedure and the sedation options and risks were discussed with the patient. All questions were answered and informed consent was obtained. Patient identification and proposed procedure were verified by the physician in the pre-procedure area. Mental Status Examination: alert and oriented. Airway Examination: normal oropharyngeal airway and neck mobility. Respiratory Examination: clear to auscultation. CV Examination: normal. Prophylactic Antibiotics: The patient does not require prophylactic antibiotics. Prior Anticoagulants: The patient has taken no anticoagulant or antiplatelet agents. ASA Grade Assessment: III - A patient with severe systemic disease. After reviewing the risks and benefits, the patient was deemed in satisfactory condition to undergo the procedure. The anesthesia plan was to use monitored anesthesia care (MAC). Immediately prior to administration of medications, the patient was re-assessed for adequacy to receive sedatives. The heart rate, respiratory rate, oxygen saturations, blood pressure, adequacy of pulmonary ventilation, and response to care were monitored throughout the procedure. The physical status of the patient was re-assessed after the procedure. After obtaining informed consent, the endoscope was passed under direct vision. Throughout the procedure, the patient's blood pressure, pulse, and oxygen saturations were monitored continuously. The Colonoscope was introduced through the mouth, and advanced to the second part of duodenum. The upper GI endoscopy was accomplished without difficulty. The patient tolerated the procedure well. Scope In: 12:45:04 PM Scope Out: 12:56:41 PM Total Procedure Duration Time 0 hours 11 minutes 37 seconds Findings: The examined esophagus was normal. A mild Schatzki ring was found at the gastroesophageal junction. A single 5 mm angiodysplastic lesion with bleeding was found in the gastric fundus. Coagulation for hemostasis using heater probe was successful. Estimated blood loss was minimal. One oozing cratered duodenal ulcer with pigmented material was found in the duodenal bulb. The lesion was 6 mm in largest dimension. Coagulation for hemostasis using heater probe was successful. Estimated blood loss was minimal. Impression: - Normal esophagus. - Mild Schatzki ring. - A single bleeding angiodysplastic lesion in the stomach. Treated with a heater probe. - Oozing duodenal ulcer with pigmented material. Treated with a heater probe. - No specimens collected. Recommendation: - [facility] to [facility] care. - Advance diet as tolerated. - Continue present medications. Procedure Code(s): --- Professional --- 28046, Esophagogastroduodenoscopy, flexible, transoral; with control of bleeding, any method CPT copyright 2021 [employer]. All rights reserved. The codes documented in this report are preliminary and upon knockout machine operator review may be revised to meet current compliance requirements. Cade Ross DO 12/26/2023 1:21:35 PM This report has been signed electronically. Number of Addenda: 0 Note Initiated On: 12/26/2023 12:00 PM
--- NOTE | 2023-12-26 13:22 | OP.CCLET_ITS ---
12/26/2023 Bekah Washington Md Re : Upper GI endoscopy procedure for Barry Joe Sabino Washington This procedure was performed on Tuesday, December 26, 2023. My impressions and recommendations are as follows: Impressions : - Normal esophagus. - Mild Schatzki ring. - A single bleeding angiodysplastic lesion in the stomach. Treated with a heater probe. - Oozing duodenal ulcer with pigmented material. Treated with a heater probe. - No specimens collected. Recommendations : - [facility] to [facility] care. - Advance diet as tolerated. - Continue present medications. My findings are described in the full procedure note, which is enclosed. If I can be of further assistance, please feel free to contact me at . Sincerely, Cade Friend, 12/26/2023 1:21:35 PM This report has been signed electronically.
--- NOTE | 2023-12-26 13:26 | OP.COLON_ITS ---
Patient Name: Barry Joe Procedure Date: 12/26/2023 12:57 PM Date of : 1955 Age: 68 Procedure: Colonoscopy Indications: Iron deficiency anemia Providers: Cade Ross DO Referring MD: Ofelia Walls DO Medicines: Monitored Anesthesia Care Patient Profile: This is a 68 year old male. Refer to note in patient chart for documentation of history and physical. Patient has symptoms. Last Colonoscopy: date unknown. Unable to locate last colonoscopy report. Complications: No immediate complications. Procedure: Pre-Anesthesia Assessment: - Prior to the procedure, a History and Physical was performed, and patient medications and allergies were reviewed. The patient is competent. The risks and benefits of the procedure and the sedation options and risks were discussed with the patient. All questions were answered and informed consent was obtained. Patient identification and proposed procedure were verified by the physician in the pre-procedure area. Mental Status Examination: alert and oriented. Airway Examination: normal oropharyngeal airway and neck mobility. Respiratory Examination: clear to auscultation. CV Examination: normal. Prophylactic Antibiotics: The patient does not require prophylactic antibiotics. Prior Anticoagulants: The patient has taken no anticoagulant or antiplatelet agents. ASA Grade Assessment: III - A patient with severe systemic disease. After reviewing the risks and benefits, the patient was deemed in satisfactory condition to undergo the procedure. The anesthesia plan was to use monitored anesthesia care (MAC). Immediately prior to administration of medications, the patient was re-assessed for adequacy to receive sedatives. The heart rate, respiratory rate, oxygen saturations, blood pressure, adequacy of pulmonary ventilation, and response to care were monitored throughout the procedure. The physical status of the patient was re-assessed after the procedure. After I obtained informed consent, the scope was passed under direct vision. Throughout the procedure, the patient's blood pressure, pulse, and oxygen saturations were monitored continuously. The Colonoscope was introduced through the anus and advanced to the cecum, identified by appendiceal orifice and ileocecal valve. The colonoscopy was performed without difficulty. The patient tolerated the procedure well. The quality of the bowel preparation was unsatisfactory. Scope In: 12:59:39 PM Scope Withdrawal Time 0 hours 5 minutes 37 seconds Scope Out: 1:14:18 PM Total Procedure Duration Time 0 hours 14 minutes 39 seconds Findings: The perianal and digital rectal examinations were normal. Multiple small and large-mouthed diverticula were found in the recto-sigmoid colon, sigmoid colon and descending colon. A 12 mm polyp was found in the descending colon. The polyp was sessile. The polyp was removed with a hot snare. Resection and retrieval were complete. Verification of patient identification for the specimen was done. Estimated blood loss was minimal. Extensive amounts of stool was found in the entire colon. Impression: - Preparation of the colon was unsatisfactory. - Diverticulosis in the recto-sigmoid colon, in the sigmoid colon and in the descending colon. - One 12 mm polyp in the descending colon, removed with a hot snare. Resected and retrieved. - Stool in the entire examined colon. Recommendation: - Return patient to [facility] for ongoing care. - Advance diet as tolerated. - Continue present medications. - Repeat colonoscopy in 3 months because the bowel preparation was poor. Procedure Code(s): --- Professional --- 33678, Colonoscopy, flexible; with removal of tumor(s), polyp(s), or other lesion(s) by snare technique CPT copyright 2021 [employer]. All rights reserved. The codes documented in this report are preliminary and upon dental hygiene teacher review may be revised to meet current compliance requirements. Cade Ross DO 12/26/2023 1:25:49 PM This report has been signed electronically. Number of Addenda: 0 Note Initiated On: 12/26/2023 12:57 PM
--- NOTE | 2023-12-26 13:26 | OP.CCLET_ITS ---
12/26/2023 Bekah Washington Md Re : Colonoscopy procedure for Barry Joe Sabino Washington This procedure was performed on Tuesday, December 26, 2023. My impressions and recommendations are as follows: Impressions : - Preparation of the colon was unsatisfactory. - Diverticulosis in the recto-sigmoid colon, in the sigmoid colon and in the descending colon. - One 12 mm polyp in the descending colon, removed with a hot snare. Resected and retrieved. - Stool in the entire examined colon. Recommendations : - Return patient to [facility] for ongoing care. - Advance diet as tolerated. - Continue present medications. - Repeat colonoscopy in 3 months because the bowel preparation was poor. My findings are described in the full procedure note, which is enclosed. If I can be of further assistance, please feel free to contact me at . Sincerely, Cade Ross, 12/26/2023 1:25:49 PM This report has been signed electronically.
--- NOTE | 2023-12-26 16:17 | DCINST_ITS ---
Discharge Instructions Diet Discharge Diet: Renal Diet Activity Discharge Activity: Return to Normal Activity Weight Bearing Status: Full weight bearing Follow Up Care Test Results: Test results from this visit will be discussed in further detail at your follow- up appointment, if applicable. Discharge Plan Admission Admit Date/Time: 12/25/23 14:56 Primary Reason for Your Visit: Upper GI bleed Attending Provider: Juan Irene Primary Care Provider: Bekah [place] Consulting Providers: Ofelia Walls Instructions Additional Instructions / Restrictions: Contact Dr. Ross's office to schedule a repeat colonoscopy for 3 months from now Discharge Orders/Prescriptions Prescriptions: Continued amlodipine 5 mg tablet 5 mg PO BID Patient Comments: WAS TOLD TO STOP TAKING TODAY acetaminophen 500 MG tablet 500 mg PO DAILY calcium acetate(phosphat bind) 667 mg capsule 2,668 mg PO TID Patient Comments: TAKE 4 CAPSULES BY MOUTH THREE TIMES DAILY WITH MEALS carvedilol 6.25 mg tablet 6.25 mg PO Q12H Patient Comments: TAKE ONE TABLET BY MOUTH TWICE A DAY Nephro-Christiano 0.8 mg tablet 1 tab PO Q24H Patient Comments: TAKE 1 TABLET BY MOUTH EVERY DAY (ON DIALYSIS DAYS, TAKE AFTER DIALYSIS TREATMENT) sucralfate 1 gram tablet 1 g PO BID Qty: 30 0RF pantoprazole 40 MG tablet 40 mg PO DAILY Qty: 60 0RF Referrals / Follow Up: Bekah Washington MD [Primary Care Provider] - Within 1 Month Disposition Disposition (needs filled in before D/C Order can be placed): Home, Self Care
--- NOTE | 2023-12-26 16:19 | PCM.DC.SUM ---
Providers Date of Admission: 12/25/23 Date of Discharge: 12/26/23 Primary Care Physician: Dr. Bekah Washington MD Consultations 12/25/23 12:56 Consult: Gastroenterology Routine Consulting Provider: [facility] Reason for Consult: anemia EMERGENT Consult: No MD Notified: Yes Date Notified: 12/25/23 Time Notified: 12:57 Method of Notification: Verbal Reason For Visit: ANEMIA Diagnosis Discharge Diagnosis (1) Acute on chronic anemia: Status: Chronic Code(s): D64.9 - Anemia, unspecified Plan 1. Acute on chronic anemia-secondary to suspected GI blood loss, patient will undergo an EGD and a colonoscopy tomorrow, labs will be repeated tomorrow morning #2 #2 end-stage renal disease on hemodialysis-patient will be dialyzed tomorrow #3 essential hypertension-patient is on carvedilol, his amlodipine is being held due to concerns of it causing low blood pressure #4 peptic ulcer disease-patient will continue Carafate and Protonix twice a day #5 bicuspid aortic valve #6 melena secondary to GI bleed-exact location unknown at this time, again patient will undergo an EGD and a colonoscopy tomorrow Total clinical time spent by myself addressing the patient's medical issues, reviewing all of his data, and collaborating with patient's care team: 35 minutes Medications at Discharge Home Medications acetaminophen 500 mg tablet 500 mg PO DAILY PAIN 11/21/19 amlodipine 5 mg tablet 5 mg PO BID 08/24/23 calcium acetate(phosphat bind) 667 mg capsule 2,668 mg PO TID 12/12/23 carvedilol 6.25 mg tablet 6.25 mg PO Q12H 12/12/23 vitamin B complex-vitamin C-folic acid 0.8 mg tablet (Nephro-Christiano) 1 tab PO Q24H 12/12/23 pantoprazole 40 mg tablet,delayed release 40 mg PO DAILY REFLUX #60 tabs 12/15/23 sucralfate 1 gram tablet 1 g PO BID #30 tabs 12/15/23 Hospital Course Procedures Blood transfusion, Colonoscopy, Dialysis and EGD Summary of Care Provided Minutes Spent on Discharge: 32 Hospital Course: This 68-year-old white male was seen in the emergency room at [facility] with complaints of generalized weakness and suspected continued upper GI bleeding, he complained of melanotic stools. Patient had been hospitalized earlier this month and had been given blood transfusions for symptomatic anemia, there was noted to be oozing duodenal ulcers which were injected and nonbleeding duodenal ulcers which were biopsied on his EGD. Labs in the ER revealed his hemoglobin to be 7.9, creatinine was elevated at 3.97, glucose was 139. Patient was admitted to [facility], repeat hemoglobins dropped slightly, he underwent dialysis and due to his weakness he was given 1 unit of packed red blood cells. Patient was seen by gastroenterology and underwent an EGD and a colonoscopy on 12/26/2023, colonoscopy revealed a poorly prepped colon but a small polyp was removed, it was recommended that the patient undergo another colonoscopy in 3 months due to the poor prep. EGD showed a single bleeding angiodysplastic lesion in the stomach that was treated with a heater probe and a oozing duodenal ulcer with pigmented material treated with a heater probe. A mild Schatzki's ring was noted. On 12/26/2023, patient was seen and examined: On examination he appeared in good health and spirits. Vital signs as documented. Skin warm and dry and without overt rashes. Neck without JVD, neck was supple, trachea midline, thyroid was normal. Lungs clear bilaterally, normal air movement was noted. Heart exam notable for regular rhythm, 2/6 systolic murmur was noted at the right sternal border, rubs or gallops. Abdomen unremarkable and without evidence of organomegaly, masses, or abdominal aortic enlargement. Bowel sounds are present, abdomen is not distended. Extremities nonedematous, no cyanosis was noted, no clubbing was noted. Neuro: Cranial nerves II through XII are grossly intact, no focal motor deficits were noted, sensation to light touch and pinprick intact, motor exam 5/5 throughout. Psych: Patient is alert and oriented x3, he does not appear anxious or depressed, he does not appear agitated. Patient was felt to be stable for discharge home on 12/26/2023. I talked to his and son who are in the room at the time my examination about his medical care today. Weight / BMI Weight Weight: 93 kg Body Mass Index (BMI) 28.5 ABG / Lab / Microbiology Data 12/26/23 06:10 12/26/23 06:10 Laboratory: Laboratory Results - last 24 hr 12/24/23 16:21: Blood Type A POSITIVE, Antibody Screen NEGATIVE, Crossmatch See Detail 12/26/23 06:10: WBC 5.9, RBC 2.37 L, Hgb 7.8 L, Hct 24.4 L, MCV 103.0 H, MCH 32.9 H, MCHC 32.0 D, RDW Std Deviation 67.0 H, RDW Coeff of Brynn 17.9 H, Plt Count 228, MPV 11.0, Immature Gran % (Auto) 0.300, Neut % (Auto) 67.0, Lymph % (Auto) 16.7 L, Chase % (Auto) 13.5 H, Eos % (Auto) 2.0, Baso % (Auto) 0.5, Absolute Neuts (auto) 4.0, Absolute Lymphs (auto) 0.99, Nucleated RBC % 0, Anisocytosis 3+, Sodium 135 L, Potassium 3.6, Chloride 95 L, Carbon Dioxide 31.0, BUN 36 H, Creatinine 7.45 H*, Estim Creat Clear Calc 11.19, Est GFR (MDRD) Af Amer 9 L, Est GFR (MDRD) Non-Af 8 L, BUN/Creatinine Ratio 4.8 L, Glucose 86, Calcium 9.1, Phosphorus 5.2 H, Albumin 3.1 L Microbiology: Microbiology 12/24/23 17:45 Stool Stool Occult Blood (LAMONTE) - Final D/C Instructions Discharge Diet: Renal Diet Weight Bearing Status: Full weight bearing Meaningful Use Info Meaningful Use Diagnoses (Choose all that apply): None applicable Discharge Plan Admission Admit Date/Time: 12/25/23 14:56 Primary Reason for Your Visit: Upper GI bleed Attending Provider: Juan Irene Primary Care Provider: Bekah Washington Consulting Providers: Ofelia Walls Instructions Additional Instructions / Restrictions: Contact Dr. Ross's office to schedule a repeat colonoscopy for 3 months from now Discharge Orders/Prescriptions Prescriptions: Continued amlodipine 5 mg tablet 5 mg PO BID Patient Comments: WAS TOLD TO STOP TAKING TODAY acetaminophen 500 MG tablet 500 mg PO DAILY calcium acetate(phosphat bind) 667 mg capsule 2,668 mg PO TID Patient Comments: TAKE 4 CAPSULES BY MOUTH THREE TIMES DAILY WITH MEALS carvedilol 6.25 mg tablet 6.25 mg PO Q12H Patient Comments: TAKE ONE TABLET BY MOUTH TWICE A DAY Nephro-Christiano 0.8 mg tablet 1 tab PO Q24H Patient Comments: TAKE 1 TABLET BY MOUTH EVERY DAY (ON DIALYSIS DAYS, TAKE AFTER DIALYSIS TREATMENT) sucralfate 1 gram tablet 1 g PO BID Qty: 30 0RF pantoprazole 40 MG tablet 40 mg PO DAILY Qty: 60 0RF Referrals / Follow Up: Bekah Washington MD [Primary Care Provider] - Within 1 Month Disposition Disposition (needs filled in before D/C Order can be placed): Home, Self Care Charges/Coding Visit Charges Inpatient E&M: 55525 Disch Hosp >30min
== END 2023-12-26 17:03 | disposition home or self-care (01) | DRG 377 ==
LOC: ED 18:44 → MS3 19:04
PROVIDERS: Internal Medicine Gastroenterology; Internal Medicine Nephrology; Admitting Provider Internal Medicine; Emergency Provider Emergency Medicine; PCP Internal Medicine; Referring Provider Internal Medicine; Visit Provider Internal Medicine
PROC: 0DJD8ZZ Inspection of Lower Intestinal Tract, Via Natural or Artificial Opening Endoscopic (ICD-10-PCS; CPT 45378; principal; 2023-12-26 10:15)
DX: K31.811 Angiodysplasia of stomach and duodenum with bleeding (principal); N18.6 End stage renal disease; I12.0 Hypertensive chronic kidney disease with stage 5 chronic kidney disease or end stage renal disease; D62 Acute posthemorrhagic anemia; N25.81 Secondary hyperparathyroidism of renal origin; D63.1 Anemia in chronic kidney disease; K22.2 Esophageal obstruction; Z99.2 Dependence on renal dialysis; D12.4 Benign neoplasm of descending colon; F17.210 Nicotine dependence, cigarettes, uncomplicated; K26.4 Chronic or unspecified duodenal ulcer with hemorrhage; K57.31 Diverticulosis of large intestine without perforation or abscess with bleeding; Z79.899 Other long term (current) drug therapy; Z87.74 Personal history of (corrected) congenital malformations of heart and circulatory system
CPT/HCPCS: 36415; 71045; 80053; 80069; 82274; 85025; 86850; 86900; 86901; 86920; 86922; 88305; 90937; 93005; 94640; 94668; 99252; 99284; 99406; J7120; P9016; A4216; G0257; G0463; J3490

== ENCOUNTER → 2023-12-28 | Outpatient (CLI) | payer MEDICARE, BC, SELFPAY ==
[2023-12-28 15:34] LABS: Hematocrit 27.7 % (40-54); Hemoglobin 8.4 g/dL (13.0-16.5)
--- OUTSIDE RECORDS SUMMARY | 2023-12-28 17:51 | XMS RPT_ITS | CCD ---
Author Name Unknown Address [address] [place] [address] Organization [facility] Care Team Providers Care [employer] Hel[employer] Name Role Phone Preeti Emerson Unavailable Unavailable [...] disease (2 sources) Atherosclerotic heart disease of [place] coronary artery without angina pectoris; Translations: [Athscl heart disease of [place] coronary artery w/o ang pctrs] Onset: 06-14-2018 [...] Resolved: 12-24-2016 Episodic Other aftercare (2 sources) care home (current) use of aspirin; Translations: [care home (current) use of aspirin] Onset: 06-14-2018 [...] [Ratio] 32.84 kg/m2 Margarita Currycecilleinderjit Work Phone: [facility] Work Phone: 07-12-2021 13:52-0400 Body surface area Derived from formula 2.25 m2 Margarita Currytristonmeenu Work Phone: [employer] [facility] Work Phone: 07-12-2021 13:52-0400 Body temperature 98 [degF] Margarita Caterinaibeth Work Phone: [facility] Work Phone: 07-12-2021 13:52-0400 Body weight 105.92 kg Margarita Padmini Work Phone: [employer] [facility] Work Phone: 07-12-2021 13:52-0400 Diastolic blood pressure 117 mm[Hg] Margarita Shannon Work Phone: [facility] Work Phone: 07-12-2021 13:52-0400 Heart rate 75 /min Margarita Shannon Work Phone: [facility] Work Phone: 07-12-2021 13:52-0400 Respiratory rate 18 /min Margarita Shannon Work Phone: [facility] Work Phone: 07-12-2021 13:52-0400 SaO2% (BldA) [Mass fraction] 96 % Margarita Shannon Work Phone: [facility] Work Phone: 07-12-2021 13:52-0400 Systolic blood pressure 183 mm[Hg] Margarita Shannon Work Phone: [facility] Work Phone: 07-12-2021 13:52-0400 7 1 Margarita Shannon Work Phone: [facility] Work Phone: Encounters Encounter Date Encounter Type Care Provider Facility Start: 09-04-2023 End: 09-04-2023 ambulatory MARGARITA CURRYCECILLESHANMEENU Facility:[facility] Start: 09-04-2023 End: 09-04-2023 Patient encounter procedure Rashad Piedra DO Work Phone: [facility] Procedures Date Procedure Procedure Detail Performing Clinician [...] Vaccine: 65+ (3 - PPSV23 or PCV20) [facility] Start: 07-10-2023 Covid-19 Vaccine () Covid-19 Vaccine () [facility] Start: 07-10-2023 Covid-19 Vaccine () Covid-19 Vaccine () [facility] Start: 07-10-2023 Influenza vaccination Influenza Vaccine (#1) [facility] Start: 11-09-2022 Advance Directive Discussion Advance Directive Discussion [facility] Start: 11-09-2022 Depression Assessment Depression Assessment [facility] Start: 10-11-2022 Diabetes Screening Diabetes Screening [facility] Start: 07-18-2022 Patient encounter procedure MCRANNUAL, Provider: Margarita Shannon, Status: Pen, Time: 2:15 PM [employer] Work Phone: Start: 01-10-2022 FUV, Provider: Mragarita Shannon, Status: Pen, Time: 2:15 PM FUV, Provider: Margarita Shannon, Status: Pen, Time: 2:15 PM [employer] Work Phone: Start: 01-01-2021 Urine microalbumin profile DTaP,Tdap,Td Vaccine (2 - Td or Tdap) [facility] Start: 12-21-2020 Colonoscopy Colonoscopy [facility] Start: 12-21-2020 Colorectal Cancer Screening Colorectal Cancer Screening [facility] Start: 2015 Hepatitis B Vaccine (1 of 3 - Risk 3-dose series) Hepatitis B Vaccine (1 of 3 - Risk 3-dose series) [facility] Start: 2015 RSV Vaccine (1 - 1-dose 60+ series) RSV Vaccine (1 - 1-dose 60+ series) [facility] Start: 2010 Prostate Cancer Screening Discussion Prostate Cancer Screening Discussion [facility] Start: 2000 Cologuard (FIT-DNA) Cologuard (FIT-DNA) [facility] Start: [address] Colonography [facility] Start: 2000 Fecal Occult Blood Fecal Occult Blood [facility] Start: 2000 Sigmoidoscopy Sigmoidoscopy [facility] Start: 1990 Lipid 1996 panel - Serum or Plasma Lipid Screening [facility] Start: 1974 Hepatitis A Vaccine (1 of 2 - Risk 2-dose series) Hepatitis A Vaccine (1 of 2 - Risk 2-dose series) [facility] Start: 1974 Shingrix Vaccine (1 of 2) Shingrix Vaccine (1 of 2) [facility] Start: 1974 Urine microalbumin profile DTaP,Tdap,Td Vaccine (1 - Tdap) [facility] Start: 1973 Hepatitis C Screening Hepatitis C Screening [facility] Start: 1961 Pneumococcal Vaccine: 65+ (1 - PCV) Pneumococcal Vaccine: 65+ (1 - PCV) [facility] Start: 1955 Abdominal Aortic Aneurysm Screening Abdominal Aortic Aneurysm Screening [facility] End: 09-30-2024 XR SHOULDER GENERAL 3V OR MORE AP/TRUE AP/OTHER RIGHT XR SHOULDER GENERAL 3V OR MORE AP/TRUE AP/OTHER RIGHT Radiology Routine Right shoulder pain, unspecified chronicity 1 Occurrences starting 09/01/2023 until 09/30/2024 [facility] Work Phone: Immunizations Immunization Date Immunization Notes Care Provider Siva zamora 09-12-2021 Moderna COVID-19 Vac cine 100 MCG/0.5ML Intramuscular Suspension Margarita Shannon Work Phone: [facility] Work Phone: 02-08-2021 Moderna COVID-19 Vac cine 100 MCG/0.5ML Intramuscular Suspension Margarita Shannon Work Phone: [facility] Work Phone: 01-11-2021 Moderna COVID-19 Vac cine 100 MCG/0.5ML Intramuscular Suspension Margarita Shannon Work Phone: [facility] [facility] Work Phone: 01-11-2021 Pfizer-BioNTech COVI D-19 Vacc 30 MCG/0.3ML Intramuscular Suspension Margarita Shannon MD [facility] Work Phone: Payers Date Payer Category Payer Unknown 2020 Unknown [id number] 2006 Medicare 2003 Medicare [id number] 1955 Unknown [id number] [id number] 1955 Unknown [id number] [id number] [id number] 1955 Unknown [id number] 2.16.8 [id number] 1955 Unknown [id number] 2.16.8 [id number] 1955 Unknown [id number] 2.16.8 [id number] 1955 Unknown [id number] 2.16.8 [id number] 1955 Unknown [id number] [id number] Social History Date Type Detail Facility Start: 10-09-2021 End: 09-04-2023 Former tobacco use Former tobacco use [facility] Work Phone: Start: 10-09-2021 Tobacco smoking status ORIS Smokes tobacco daily [facility] History of tobacco use Cigarette Smoker [facility] Start: 10-09-2021 Tobacco use and exposure Smokeless tobacco non-user [facility] Start: 10-09-2021 End: 09-04-2023 Alcohol intake Lifetime non-drinker (finding) [facility] Start: 10-09-2021 End: 09-04-2023 Tobacco use panel [facility] National Score (1-100), lower number is lower risk Not on file [facility] Start: 1955 Sex Assigned At Not on file [facility] NEGATED: Highlighted row - - [place]-Ylnfdhqgxc-Hkwbba Work Phone: Functional Status Date Assessment Result Facility NEGATED: Highlighted row Functional performance Functional status health issues are not documented Disease NQ-Equcdpsuvg-Yfjwb r Work Phone: Mental Status Date Assessment Result Facility NEGATED: Highlighted row Cognitive function [Interpretation] Cognitive status health issues are not documented Disease SW-Hlsesxvtcv-Ygpis r Work Phone: Clinical Notes 09-04-2023 Rashad Piedra V, DO - 09/04/2023 2:41 PM EDTRafferNy bright Ma M - 09/04/2023 2:01 PM EDFederica Patel RT(R) - 09/04/2023 1:40 PM EDT Note Date & Type Note Facility 09-04-2023 Note HNO ID: [id number] Author: Rashad Piedra V, DO Service: ? [...] shoulder joint Informed Consent Consent Obtained: Verbal [place] Protocol A moment to CARE was completed. [...] these instructions. Rashad Piedra DO [facility] 09-04-2023 Note HNO ID: [id number] Author: Ny Sylvester Ma Service: ? Author [...] outside the home. New x-ray today at [facility]. [facility] 09-04-2023 Note HNO ID: [id number] Author: Federica Mai RT(R) Service: ? Author [...] September 04, 2023 1:55 PM [facility] 09-04-2023 History of Present illness Narrative [...] shoulder joint Informed Consent Consent Obtained: Verbal [place] Protocol A moment to CARE was completed. [...] outside the home. New x-ray today at [facility]. 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 takes tylenol. [facility] [employer] Phone: Instructions* Name Dates Details Instructions not documented [facility] [employer] Phone: [facility] for referral (narrative)* Diagnostic Procedure Only (Routine) - Pending Review Specialty Diagnoses / Procedures Referred By Jennifer t Referred To Contact XR IMAGING Diagnoses Right shoulder pain, unspecified chronicity Procedures XR SHOULDER GENERAL 3V OR MORE AP/TRUE AP/OTHER RIGHT RADEX SHOULDER COMPLETE MINIMUM 2 VIEWS Rashad Piedra V, DO [address] [place] [address] [place] [address] Referral ID Status Reason Start Date Expiration Date Visits Requested Visits Authorized [id number] Pending Review Auto-Generat ed Referral 09/30/2024 1 1 [facility] for referral (narrative)* Diagnostic Procedure Only (Routine) - Closed Specialty Diagnoses / Procedures Referred By Jennifer t Referred To Contact XR IMAGING Diagnoses Right shoulder pain, unspecified chronicity Procedures XR SHOULDER GENERAL 3V OR MORE AP/TRUE AP/OTHER RIGHT RADEX SHOULDER COMPLETE MINIMUM 2 VIEWS Rashad Piedra V, DO [address] [place] [address] [place] [address] Referral ID Status Reason Start Date Expiration Date V isits Requested Visits Authorized [id number] Closed Auto-Generate d Referral 09/01/2023 09/30/2024 1 1 [facility] for visit Narrative* Diagnostic Procedure Only (Routine) - Closed Specialty Diagnoses / Procedures Referred By Contac t Referred To Contact XR IMAGING Diagnoses Right shoulder pain, unspecified chronicity Procedures XR SHOULDER GENERAL 3V OR MORE AP/TRUE AP/OTHER RIGHT RADEX SHOULDER COMPLETE MINIMUM 2 VIEWS Rashad Piedra V, DO [address] [place] [address] [place] [address] Referral ID Status Reason Start Date Expiration Date V isits Requested Visits Authorized [id number] Closed Auto-Generate d Referral 09/01/2023 09/30/2024 1 1 [facility] Summary Purpose Family History Unknown Family Member [...] DATE CREATED AUTHOR AUTHOR'S ORGANIZ ATION [facility] DATE CREATED AUTHOR AUTHOR'S ORGANIZ ATION 11/19/2018 [facility] DATE CREATED AUTHOR AUTHOR'S ORGANIZ ATION 06/03/2020 [facility] DATE CREATED AUTHOR AUTHOR'S ORGANIZ ATION 07/14/2021 [employer] DATE CREATED AUTHOR AUTHOR'S ORGANIZ ATION 12/10/2021 [facility] DATE CREATED AUTHOR AUTHOR'S ORGANIZ ATION 09/08/2023 [facility] Source Comments (unrecognize d section and content) In the event this informatio n is protected by the Federal Confidentiality of Alcohol and Drug Abuse Patient Records regulations: The Federal rules restrict any use of the information to criminally investigate or prosecute any alcohol or drug abuse patient.[facility] the event this information is protected by the Federal Confidentiality of Alcohol and Drug Abuse Patient Records regulations: The Federal rules restrict any use of the information to criminally investigate or prosecute any alcohol or drug abuse patient.[facility] the event this information is protected by the Federal Confidentiality of Alcohol and Drug Abuse Patient Records regulations: The Federal rules restrict any use of the information to criminally investigate or prosecute any alcohol or drug abuse patient.[facility] Care Teams (unrecognized sec tion and content) [employer] Relationship Specialty Start Date End Date Margarita Shannon MD [address] [address] PCP - General 01/23/03 Reason for Visit [...] PRIMARY CLINICAL RECORDS. [facility] [employer] [facility]. provides no warranty or guarantee of the accuracy or completeness of information in this document.
== END | disposition home or self-care (01) ==
LOC: LAB 14:52
PROVIDERS: PCP Internal Medicine; Referring Provider Internal Medicine Gastroenterology; Visit Provider Internal Medicine Gastroenterology
DX: D64.9 Anemia, unspecified (principal)
CPT/HCPCS: 36415; 85014; 85018

== ENCOUNTER 2024-01-12 13:31 | Inpatient (IN) | payer MEDICARE, BC, SELFPAY ==
[2024-01-12] VITALS (7 sets, daily range): BP systolic 122–159; BP diastolic 68–103; PULSE 78–96; RESP 13–18; TEMP 36.4–36.8; O2SAT 97–100; BMI 29.3; BMI 28.9
[2024-01-12 14:45] LABS: Absolute Lymphocyte Count 1.36 X10^3/uL (0.83-4.51); Absolute Neutrophil Count 5.5 X10^3/uL (2.0-7.7); Basophil# 0.05 X10^3/uL; Basophil% 0.6 % (0-1); Eosinophil# 0.07 X10^3/uL; Eosinophils% 0.9 % (0-5); Hematocrit 27.6 % (40-54); Hemoglobin 8.7 g/dL (13.0-16.5); Lymphocyte # 1.36 X10^3/ul (0.83-4.51); Mean Corp Hgb Conc 31.5 g/dL (32-36); Mean Corpuscular Hgb 31.1 pg (27.0-32.0); Mean Corpuscular Volume 98.6 fL (80-94); Mean Platelet Vol. 10.4 fl (6.2-12.0); Monocyte# 0.99 X10^3/uL; Monocyte% 12.4 % (0-10); NRBC Flagged by Analyzer 0 % (0-5); Neutrophil # 5.48 X10^3/uL (2.7-7.7); Neutrophil % 68.6 % (47-70); Platelet Count 206 K/mm3 (150-450); RBC Distribution Width SD 60.6 fl (35.1-43.9)
[2024-01-12 15:05] LABS: ALB/GLOB Ratio 0.9 RATIO (0.9-2.4); AST(SGOT) 13 U/L (15-37); Alanine Aminotransfer ALT/SGPT 11 U/L (16-61); Albumin, Serum 3.4 g/dL (3.2-5.0); Alkaline Phosphatase 60 U/L (45-117); Anion Gap 3 (5-15); BUN 32 mg/dL (7-18); BUN/Creat Ratio 7.8 RATIO (10-20); Calcium,Total 8.4 mg/dL (8.5-10.1); Chloride 96 mmol/L (98-107); Creatinine, Serum 4.12 mg/dL (0.70-1.30); EST Glomerular Filtration Rate 15 mL/min (>60); Est Glom Filt Rate - Afr Amer 19 mL/min (>60); Estimated Creatinine Clearance 20.24 ml/min; Globulin 3.7 g/dL (2.2-4.2); Glucose 83 mg/dL (74-106); Potassium 3.2 mmol/L (3.5-5.1); Protein, Total 7.1 g/dL (6.4-8.2); Sodium Level 137 mmol/L (136-145)
--- NOTE | 2024-01-12 15:06 | EX.ED.DYSGE1 ---
HPI History of Present Illness Chief Complaint: GI Bleed Informant: patient and spouse/S.O. Narrative Narrative: 68-year-old male presenting to the emergency room with a chief complaint of GI bleed. Patient is currently seeing Dr. Ross from gastroenterology. He has been in the hospital twice in recent weeks for GI bleeding. He was transfused each admission. He underwent EGD as well as colonoscopy last month. He was noted to have bleeding from a stomach and duodenal areas that were treated. He states his stool had normalized at the end of last week. On Thursday he states the stool became black and tarry again. Initially felt ulcers due to NSAID use. Low-dose aspirin and heparin during dialysis were discontinued but he has since restarted them last week. Patient states he feels generalized fatigue. He states that typically if his hemoglobin is around 11 he feels pretty good. He went to dialysis today where his hemoglobin was reported to be 8.0. He states that he stayed for treatment and then was advised to come to emergency by GI. He currently denies any new pains specifically in the abdomen or chest. No known coronary artery disease. He does have a history of bicuspid valve and subclavian artery aneurysm repair. [facility] Medical History Acute on chronic anemia Acute upper GI bleed Bursitis Cardiac disease Chronic anemia Dialysis patient Generalized weakness Hepatitis History of end stage renal disease History of renal dialysis Kidney disease Kidney failure due to vascular disorder Migraines Problem with dialysis access Rectal bleeding Rheumatoid aortitis Rheumatoid vasculitis Secondary hyperparathyroidism Smoker Subclavian aneurysm Home Medications acetaminophen 500 mg tablet 500 mg PO DAILY PAIN 11/21/19 [History Last Taken 12/12/23] amlodipine 5 mg tablet 5 mg PO BID 08/24/23 [History Last Taken 12/24/23] calcium acetate(phosphat bind) 667 mg capsule 2,668 mg PO TID 12/12/23 [History Last Taken 12/23/23] carvedilol 6.25 mg tablet 6.25 mg PO Q12H 12/12/23 [History Last Taken 12/24/23] vitamin B complex-vitamin C-folic acid 0.8 mg tablet (Nephro-Christiano) 1 tab PO Q24H 12/12/23 [History Last Taken 12/23/23] pantoprazole 40 mg tablet,delayed release 40 mg PO DAILY REFLUX 90 days #90 tabs 12/28/23 [Rx Last Taken Unknown] sucralfate 1 gram tablet 1 g PO BID 90 days #180 tabs 12/28/23 [Rx Last Taken Unknown] Allergy/AdvReac Type Severity Reaction Status Date / Time No Known Allergies Allergy Verified 01/12/24 13:32 Family History Other Cancer Diabetes Heart disease Surgical History History of bicuspid aortic valve History of umbilical hernia Hx of arteriovenostomy for renal dialysis (~12/2019) S/P knee surgery s/p subclavian graft Status post insertion of dialysis catheter (~11/2019) Social History household members: spouse housing: house Smoking Status: Current every day smoker tobacco type: cigarettes alcohol intake: never substance use type: does not use ROS ROS ED Constitutional Constitutional ED: Reports other Details: Generalized weakness ; Denies chills, fever(s) or weight loss Eyes Eyes: Denies change in vision or diplopia ENT ENT ED: Denies ear pain, rhinorrhea or sore throat Cardiovascular Cardiovascular: Denies chest pain, orthopnea, palpitations or racing heartbeat Respiratory/Chest Respiratory/Chest: Denies cough, dyspnea or orthopnea Gastrointestinal Gastrointestinal: Denies abdominal pain, diarrhea, nausea or vomiting Genitourinary Genitourinary ED: Denies dysuria, hematuria or urinary frequency Musculoskeletal Musculoskeletal: Reports back pain and other Details: Back pain is chronic and he reports no change in this. He reports it is due to his RA ; Denies arthralgias or myalgias Integumentary Denies abscess or rash Neurologic Neurologic: Denies headache(s) or weakness Psychiatric Psychiatric: Denies anxiety, depression, suicidal ideation or suicidal thoughts Endocrine Endocrinology: Denies polydipsia, polyphagia or polyuria Allergic/Immunologic Allergic/Immunologic ED: Denies mouth swelling, tongue swelling or urticaria EXAM Physical Exam Const Vital Signs: 01/12/24 13:32 01/12/24 13:44 01/12/24 16:01 Temperature 97.5 F L 98.1 F Temperature Source Temporal Temporal Pulse Rate 96 78 84 Respiratory Rate 18 13 18 Blood Pressure 140/103 H 122/85 H 136/68 H Blood Pressure Mean 115 97 90 Pulse Ox 100 99 99 Oxygen Delivery Method Room Air Room Air Positive well nourished and well developed General Appearance ED: well developed HEENT Reports normocephalic, head/scalp atraumatic and moist mucous membranes Eyes PERRL and EOMs intact bilaterally Neck no lymphadenopathy, supple and no JVD Resp normal respiratory effort and clear to auscultation bilaterally Cardio regular rate and regular rhythm Heart Sounds: murmur systolic GI normal to inspection, nondistended, normoactive bowel sounds and non-tender Palpation: soft Back/Spine no CVA tenderness and normal ROM Extremity normal to inspection Extremity Narrative: AV fistula left arm General Extremety ED: Yes edema General Extremity: edema bilateral lower extremity Neuro oriented x3 and CN's II-XII intact bilaterally Sensorium / Orientation: alert Motor Exam: strength 5/5 throughout Psych mental status grossly normal Mood & Affect: Negative for depressed or tearful Skin no rashes or lesions noted and no wounds MDM MDM MDM Narrative Medical decision making narrative: After dialysis his hemoglobin is 8.7. White count 8.0 with platelet count of 206. BUN of 32 with a creatinine of 4.12. INR 1.1 PTT 30.5. Liver enzymes are normal. Normal total protein. I spoke with Dr. Ross. Plan will be admission I will speak with the hospitalist regarding this. History & Record Review Discussion w/independent historian: Patient and Significant other Additional record(s) reviewed:: Prior inpatient record, Prior ED visit and Prior labs Lab Data Attestation: I reviewed the patient's lab results. Labs: Laboratory Results - last 24 hr 01/12/24 01/12/24 14:30 15:13 WBC 8.0 RBC 2.80 L Hgb 8.7 L Hct 27.6 L MCV 98.6 H MCH 31.1 MCHC 31.5 L RDW Std Deviation 60.6 H RDW Coeff of Brynn 17.0 H Plt Count 206 MPV 10.4 Immature Gran % (Auto) 0.500 Neut % (Auto) 68.6 Lymph % (Auto) 17.0 L [place] % (Auto) 12.4 H Eos % (Auto) 0.9 Baso % (Auto) 0.6 Absolute Neuts (auto) 5.5 Absolute Lymphs (auto) 1.36 Nucleated RBC % 0 PT 14.1 INR 1.1 APTT 30.5 Sodium 137 Potassium 3.2 L Chloride 96 L Carbon Dioxide 38.0 H Anion Gap 3 L BUN 32 H Creatinine 4.12 H Estim Creat Clear Calc 20.24 Est GFR (MDRD) Af Amer 19 L Est GFR (MDRD) Non-Af 15 L BUN/Creatinine Ratio 7.8 L Glucose 83 Calcium 8.4 L Total Bilirubin 0.40 AST 13 L ALT 11 L Alkaline Phosphatase 60 Total Protein 7.1 Albumin 3.4 Globulin 3.7 Albumin/Globulin Ratio 0.9 Management Discussion w/another healthcare provider: Hospitalist (Dr Walls) and Clinical Documentation Consultant (Dr Ross) Discharge Plan Dx/Rx/DC Orders Clinical Impression: Rheumatoid arthritis, Acute on chronic anemia, End stage renal disease on dialysis Disposition Disposition: [facility]
[2024-01-12 15:45] LABS: International Normalized Ratio 1.1; Prothrombin Time (Protime)PT. 14.1 SECONDS (11.7-14.9)
[2024-01-12 15:46] LABS: Partial Thromboplast Time 30.5 Seconds (24.1-36.2)
--- NOTE | 2024-01-12 16:55 | HP.PCM.HOS_ITS ---
HPI - General General Date of Admission: 01/12/24 Date of Service: 01/12/24 Chief Complaint: Black stool HPI Narrative BINDU DUMONT, is a 68 M who presented to the emergency department at [facility] on 01/12/2024 with weakness and black tarry stools. He was recently admitted for an acute GI bleed from 12/12/2023 through 12/15/2023 and at that time an EGD that showed a normal esophagus, small hiatal hernia, and n oozing duodenal ulcer with pigmented material. This was injected and he had was treated with heater probe. He also had a nonbleeding duodenal ulcer that had no stigmata of recent bleeding it was biopsied. He was discharged on Protonix and Carafate and biopsies were unremarkable. He came back to the emergency department on 12/24/2023 at which time he was complaining of worsening shortness of breath and weakness. He reported that his stools were dark again and his hemoglobin at dialysis was assessed to be 8.4. Upon presentation it was 7.8 and he was admitted with recurrent upper GI bleed. He was taken for EGD which demonstrated normal esophagus, mild Schatzki's ring, a single bleeding angiodysplastic lesion in the stomach that was treated with heater probe and oozing duodenal ulcer that was treated with heater probe. A colonoscopy was done at that time which had unsatisfactory prep but did show diverticulosis in the rectosigmoid colon, sigmoid colon and descending colon with 112 mm polyp in the descending colon that was removed with hot snare. 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 He was discharged home and had been doing well. He recently saw Dr. Ross in the outpatient setting on 01/06/2024 and was doing well so his aspirin was reinstituted and he was allowed to start heparin with dialysis again. On Thursday his stool became tarry and black again so he came to the emergency department today after his hemoglobin was found to be 8.0 at dialysis. He did have a full dialysis session prior to coming emergency department. Vital signs on presentation showed temperature of 97.5, heart rate 96, blood pressure 140/103, respiratory to 18 oxygen saturations were 100% room air. CBC shows a normal white count with a hemoglobin of 8.7 however his repeat hemoglobin had dropped to 7.1. Platelet count was normal. Coags are unremarkable. Chemistry panel showed mild hypokalemia with potassium of 3.2 but was otherwise at his baseline with regard to his renal dysfunction. Liver enzymes are unremarkable. His stool is negative for occult blood but it has been every time he is been admitted. [facility] Medical History Acute on chronic anemia Acute upper GI bleed Bursitis Cardiac disease Chronic anemia Dialysis patient Generalized weakness Hepatitis History of end stage renal disease History of renal dialysis Kidney disease Kidney failure due to vascular disorder Migraines Problem with dialysis access Rectal bleeding Rheumatoid aortitis Rheumatoid vasculitis Secondary hyperparathyroidism Smoker Subclavian aneurysm Home Medications acetaminophen 500 mg tablet 500 mg PO DAILY PAIN 11/21/19 [History Last Taken 12/12/23] amlodipine 5 mg tablet 5 mg PO BID 08/24/23 [History Last Taken 12/24/23] calcium acetate(phosphat bind) 667 mg capsule 2,668 mg PO TID 12/12/23 [History Last Taken 12/23/23] carvedilol 6.25 mg tablet 6.25 mg PO Q12H 12/12/23 [History Last Taken 12/24/23] vitamin B complex-vitamin C-folic acid 0.8 mg tablet (Nephro-Christiano) 1 tab PO Q24H 12/12/23 [History Last Taken 12/23/23] pantoprazole 40 mg tablet,delayed release 40 mg PO DAILY REFLUX 90 days #90 tabs 12/28/23 [Rx Last Taken Unknown] sucralfate 1 gram tablet 1 g PO BID 90 days #180 tabs 12/28/23 [Rx Last Taken Unknown] Allergy/AdvReac Type Severity Reaction Status Date / Time No Known Allergies Allergy Verified 01/12/24 13:32 Family History Other Cancer Diabetes Heart disease Surgical History History of bicuspid aortic valve History of umbilical hernia Hx of arteriovenostomy for renal dialysis (~12/2019) S/P knee surgery s/p subclavian graft Status post insertion of dialysis catheter (~11/2019) Social History household members: spouse housing: house Smoking Status: Current every day smoker tobacco type: cigarettes alcohol intake: never substance use type: does not use ROS Constitutional Constitutional: Reports fatigue and weakness; Denies anorexia, change in weight, chills, fever(s), malaise, night sweats or other Eyes Eyes: Denies blurry vision, change in eye color, change in vision, discharge from eye(s), double vision, erythema, eye pain, loss of vision or other ENT HEENT: Denies abnormal hearing, dysphagia, ear pain, epistaxis, headache(s), hearing loss, nasal congestion, nasal discharge, post nasal drip, sinus pressure, sore throat or other Cardiovascular Cardiovascular: Denies chest pain, claudication, dyspnea on exertion, edema, lightheadedness, orthopnea, palpitations, paroxysmal nocturnal dyspnea, rapid heart rate, syncope or other Respiratory/Chest Respiratory/Chest: Denies cough, dyspnea, excessive phlegm production, hemoptysis, productive cough, shortness of breath at rest, shortness of breath with exertion, wheezing or other Gastrointestinal Gastrointestinal: Reports melena; Denies abdominal pain, coffee ground emesis, constipation, diarrhea, dyspepsia, hematemesis, hematochezia, loose stools, nausea, vomiting or other Genitourinary Genitourinary: Denies burning urination, difficulty urinating, dysuria, shabnam turia, nocturia, urinary frequency, urinary hesitancy, urinary incontinence, urinary urgency or other Musculoskeletal Musculoskeletal: Reports other Details: Generalized weakness ; Denies arthralgias, back pain, joint pain, joint stiffness, joint swelling, myalgias or neck pain Neurologic Neurologic: Denies abnormal gait, abnormal speech, confusion, disequilibrium, dizziness, focal weakness, headache(s), numbness, paresthesias, seizure-like activity, seizures, syncope, tingling, tremor(s) or other Psychiatric Psychiatric: Denies anxiety, depression, homicidal ideation, suicidal ideation or other Endocrine Endocrinology: Denies change in body appearance, cold intolerance, excessive sweating, heat intolerance, polydipsia, polyuria or other Hematologic/Lymphatic Hematologic/Lymphatic: Denies anemia, easy bleeding, easy bruising, lymphadenopathy or other Allergic/Immunologic Allergic/Immunologic: Denies rhinitis, hives, eczemia, asthma or other Vital Signs Vital Signs Vital Signs: 01/12/24 13:32 01/12/24 13:44 01/12/24 16:01 Temperature 97.5 F L 98.1 F Temperature Source Temporal Temporal Pulse Rate 96 78 84 Respiratory Rate 18 13 18 Blood Pressure 140/103 H 122/85 H 136/68 H Blood Pressure Mean 115 97 90 Pulse Ox 100 99 99 Oxygen Delivery Method Room Air Room Air Weight Weight: 95.527 kg Body Mass Index (BMI) 29.3 Results Lab / Micro Data 01/12/24 14:30 01/12/24 14:30 Labs: Laboratory Results - last 24 hr 01/12/24 14:30: WBC 8.0, RBC 2.80 L, Hgb 8.7 L, Hct 27.6 L, MCV 98.6 H, MCH 31.1, MCHC 31.5 L, RDW Std Deviation 60.6 H, RDW Coeff of Brynn 17.0 H, Plt Count 206, MPV 10.4, Immature Gran % (Auto) 0.500, Neut % (Auto) 68.6, Lymph % (Auto) 17.0 L, [place] % (Auto) 12.4 H, Eos % (Auto) 0.9, Baso % (Auto) 0.6, Absolute Neuts (auto) 5.5, Absolute Lymphs (auto) 1.36, Nucleated RBC % 0, Sodium 137, Potassium 3.2 L, Chloride 96 L, Carbon Dioxide 38.0 H, Anion Gap 3 L, BUN 32 H, Creatinine 4.12 H, Estim Creat Clear Calc 20.24, Est GFR (MDRD) Af Amer 19 L, Est GFR (MDRD) Non-Af 15 L, BUN/Creatinine Ratio 7.8 L, Glucose 83, Calcium 8.4 L, Total Bilirubin 0.40, AST 13 L, ALT 11 L, Alkaline Phosphatase 60, Total Pr otein 7.1, Albumin 3.4, Globulin 3.7, Albumin/Globulin Ratio 0.9 01/12/24 15:13: PT 14.1, INR 1.1, APTT 30.5 Assessment & Plan Assessment/Plan (1) Acute on chronic anemia: (2) UGIB (upper gastrointestinal bleed): (3) Hypokalemia: (4) End stage renal disease on dialysis: PLAN: Plan Acute on chronic anemia -EGD on 12/15/2023 that showed normal esophagus, small hiatal hernia, oozing duodenal ulcers that were injected and treated with heater probe as well as a nonbleeding duodenal ulcer -Readmitted on 12/24/2023 and an EGD was done at that time and showed normal esophagus, mild Schatzki's ring, a single bleeding angiodysplastic lesion in the stomach which was treated with heater probe and an oozing duodenal ulcer that had pigmented material treated with heater probe -Continue Protonix but increase dose fro -Colonoscopy was unremarkable -Protonix 40 mg BID IVP -Continue home Carafate -Patient saw Dr. Ross recently and he told him is okay to restart his aspirin and heparin with dialysis -N.p.o. at midnight with clear liquids for now -Consult gastroenterology for probable EGD tomorrow -Has chronic anemia secondary to chronic renal disease Hypokalemia -Potassium 3.2 on admission -40 mEq given -Repeat BMP in a.m. Generalized weakness -Weak again with darkening of stools -Will have PT and OT see him and see if he may qualify for outpatient therapy or home health -Consult case management/social work consultation to assist with discharge planning End-stage renal disease on HD -Has dialysis Thursday//Thursday -Follows with Dr. Russo--> will consult nephrology if he requires ongoing admission on a dialysis day -Continue home phosphate binder -Continue home nephro vitamin CAD/hypertension -Continue home amlodipine -Continue home carvedilol 6.25 mg grams twice daily -Hold aspirin indefinitely Peptic ulcer disease -Continue Carafate and Protonix however Protonix will be IV for now -Outpatient GI follow-up after discharge History of migraines -Patient's not in any chronic medication -As needed Tylenol available History of subclavian aneurysm -Status postrepair History of rheumatoid arthritis/vasculitis -Patient is not on any chronic medication for this -Continue outpatient follow-up Tobacco abuse -Recommend cessation -Nicotine patch if patient desires DVT prophylaxis -SCDs for now given recent GI bleed CODE STATUS -Full code is verified on admission Charges/Coding Visit Charges Inpatient E&M: 65225 Init Hosp L2
[2024-01-12 17:28] LABS: Hemoglobin 7.1 g/dL (13.0-16.5)
--- NOTE | 2024-01-12 18:45 | CON.PCM.GI_ITS ---
HPI Consult Data Date of Consult: 01/12/24 HPI Narrative Reason for Consultation: Anemia HPI Narrative: BINDU DUMONT, is a 68 M who presented to the emergency department at [facility] on 01/12/2024 with weakness and black tarry stools. He was recently admitted for an acute GI bleed from 12/12/2023 through 12/15/2023 and at th at time an EGD that showed a normal esophagus, small hiatal hernia, and n oozing duodenal ulcer with pigmented material. This was injected and he had was treated with heater probe. He also had a nonbleeding duodenal ulcer that had no stigmata of recent bleeding it was biopsied. He was discharged on Protonix and Carafate and biopsies were unremarkable. He came back to the emergency department on 12/24/2023 at which time he was complaining of worsening shortness of breath and weakness. He re ported that his stools were dark again and his hemoglobin at dialysis was assessed to be 8.4. Upon presentation it was 7.8 and he was admitted with recurrent upper GI bleed. He was taken for EGD which demonstrated normal esophagus, mild Schatzki's ring, a single bleeding angiodysplastic lesion in the stomach that was treated with heater probe and oozing duodenal ulcer that was treated with heater probe. A colonoscopy was done at that time which had unsatisfactory prep but did show diverticulosis in the rectosigmoid colon, sigmoid colon and descending colon with 112 mm polyp in the descending colon that was removed with hot snare. 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 He was discharged home and had been doing well. He recently saw Dr. Ross in the outpatient setting on 01/06/2024 and was doing well so his aspirin was reinstituted and he was allowed to start heparin with dialysis again. On Thursday his stool became tarry and black again so he came to the emergency department today after his hemoglobin was found to be 8.0 at dialysis. He did have a full dialysis session prior to coming emergency department. CBC shows a normal white count with a hemoglobin of 8.7 however his repeat hemoglobin had dropped to 7.1. Everything else is within normal limits except for low potassium at 3.2. [facility] Medical History (Updated 01/12/24 @ 17:55 by Carolyn Clayton) Acute on chronic anemia Acute upper GI bleed Bursitis Cardiac disease Chronic anemia Dialysis patient DVT (deep venous thrombosis) Generalized weakness Hepatitis History of end stage renal disease History of renal dialysis Kidney disease Kidney failure due to vascular disorder Migraines Non-smoker Problem with dialysis access Rectal bleeding Rheumatoid aortitis Rheumatoid vasculitis Secondary hyperparathyroidism Smoker Subclavian aneurysm Home Medications acetaminophen 500 mg tablet 500 mg PO DAILY PAIN 11/21/19 [History Last Taken 12/12/23] amlodipine 5 mg tablet 5 mg PO BID BLOOD PRESSURE 08/24/23 [History Last Taken 12/24/23] calcium acetate(phosphat bind) 667 mg capsule 2,668 mg PO TID PHOSPHATE LEVELS 12/12/23 [History Last Taken 12/23/23] carvedilol 6.25 mg tablet 6.25 mg PO BID HEART 12/12/23 [History Last Taken 12/24/23] vitamin B complex-vitamin C-folic acid 0.8 mg tablet (Nephro-Christiano) 1 tab PO DAILY RENAL HEALTH 12/12/23 [History Last Taken 12/23/23] pantoprazole 40 mg tablet,delayed release 40 mg PO DAILY REFLUX 90 days #90 tabs 12/28/23 [Rx Last Taken Unknown] sucralfate 1 gram tablet 1 g PO BID ULCER TREATMENT/PREVENTION 90 days #180 tabs 12/28/23 [Rx Last Taken Unknown] cyanocobalamin (vitamin B-12) 1,000 mcg tablet (Vitamin B-12) 1,000 mcg PO DAILY supplement 01/12/24 [History Last Taken Unknown] Allergy/AdvReac Type Severity Reaction Status Date / Time No Known Allergies Allergy Verified 01/12/24 13:32 Family History Other Cancer Diabetes Heart disease Surgical History History of bicuspid aortic valve History of umbilical hernia Hx of arteriovenostomy for renal dialysis (~12/2019) S/P knee surgery s/p subclavian graft Status post insertion of dialysis catheter (~11/2019) Social History household members: spouse housing: house Smoking Status: Current every day smoker tobacco type: cigarettes alcohol intake: never substance use type: does not use ROS Constitutional Constitutional: Reports fatigue and weakness; Denies anorexia, change in weight, chills, fever(s), malaise, night sweats or other Eyes Eyes: Denies blurry vision, change in eye color, change in vision, discharge from eye(s), double vision, erythema, eye pain, loss of vision or other ENT HEENT: Denies abnormal hearing, dysphagia, ear pain, epistaxis, headache(s), hearing loss, nasal congestion, nasal discharge, post nasal drip, sinus pressure, sore throat or other Cardiovascular Cardiovascular: Denies chest pain, claudication, dyspnea on exertion, edema, lightheadedness, orthopnea, palpitations, paroxysmal nocturnal dyspnea, rapid heart rate, syncope or other Respiratory/Chest Respiratory/Chest: Denies cough, dyspnea, excessive phlegm production, hemoptysis, productive cough, shortness of breath at rest, shortness of breath with exertion, wheezing or other Gastrointestinal Gastrointestinal: Reports melena; Denies abdominal pain, coffee ground emesis, constipation, diarrhea, dyspepsia, hematemesis, hematochezia, loose stools, nausea, vomiting or other Genitourinary Genitourinary: Denies burning urination, difficulty urinating, dysuria, hematuria, nocturia, urinary frequency, urinary hesitancy, urinary incontinence, urinary urgency or other Musculoskeletal Musculoskeletal: Reports other Details: Generalized weakness ; Denies arthralgias, back pain, joint pain, joint stiffness, joint swelling, myalgias or neck pain Neurologic Neurologic: Denies abnormal gait, abnormal speech, confusion, disequilibrium, dizziness, focal weakness, headache(s), numbness, paresthesias, seizure-like activity, seizures, syncope, tingling, tremor(s) or other Psychiatric Psychiatric: Denies anxiety, depression, homicidal ideation, suicidal ideation or other Endocrine Endocrinology: Denies change in body appearance, cold intolerance, excessive sweating, heat intolerance, polydipsia, polyuria or other Hematologic/Lymphatic Hematologic/Lymphatic: Denies anemia, easy bleeding, easy bruising, lymphadenopathy or other Allergic/Immunologic Allergic/Immunologic: Denies rhinitis, hives, eczemia, asthma or other Physical Exam Const alert, oriented x3 and no apparent distress General Appearance: cooperative, well kempt and well developed Orientation / Consciousness: awake, oriented to person, oriented to place and oriented to time HEENT normocephalic and moist oral mucous membranes Eyes PERRL, EOMs intact bilaterally and conjunctivae normal Neck supple, no JVD, thyroid normal and no carotid bruits General: trachea midline Resp normal respiratory effort, no retractions, no use of accessory muscles and clear to auscultation bilaterally Auscultation: Negative for rales, rhonchi or wheezes Cardio regular rate, regular rhythm, no rub and no gallops Cardio Narrative: 2/6 systolic murmur is noted at the right sternal border GI normal to inspection, nondistended, normoactive bowel sounds, soft to palpation, non-tender and non-distended Extremity no clubbing, cyanosis or edema Skin no rashes or lesions noted General Skin Exam: no breakdown Neuro oriented x3, CN's II-XII intact bilaterally, moves all extremities, no focal motor deficits and no sensory deficits noted Sensorium / Orientation: awake and alert Speech: speech normal Psych affect normal Lab / Micro Data 01/12/24 17:16 01/12/24 14:30 Labs: Laboratory Results - last 24 hr 01/12/24 14:30: WBC 8.0, RBC 2.80 L, Hgb 8.7 L, Hct 27.6 L, MCV 98.6 H, MCH 31.1, MCHC 31.5 L, RDW Std Deviation 60.6 H, RDW Coeff of Brynn 17.0 H, Plt Count 206, MPV 10.4, Immature Gran % (Auto) 0.500, Neut % (Auto) 68.6, Lymph % (Auto) 17.0 L, [place] % (Auto) 12.4 H, Eos % (Auto) 0.9, Baso % (Auto) 0.6, Absolute Neuts (auto) 5.5, Absolute Lymphs (auto) 1.36, Nucleated RBC % 0, Sodium 137, Potassium 3.2 L, Chloride 96 L, Carbon Dioxide 38.0 H, Anion Gap 3 L, BUN 32 H, Creatinine 4.12 H, Estim Creat Clear Calc 20.24, Est GFR (MDRD) Af Amer 19 L, Est GFR (MDRD) Non-Af 15 L, BUN/Creatinine Ratio 7.8 L, Glucose 83, Calcium 8.4 L, Total Bilirubin 0.40, AST 13 L, ALT 11 L, Alkaline Phosphatase 60, Total Protein 7.1, Albumin 3.4, Globulin 3.7, Albumin/Globulin Ratio 0.9, Blood Type A POSITIVE, Antibody Screen NEGATIVE 01/12/24 15:13: PT 14.1, INR 1.1, APTT 30.5 01/12/24 17:16: Hgb 7.1 L Assessment & Plan Assessment/Plan (1) Acute on chronic anemia: (2) Generalized weakness: PLAN: Plan Acute on chronic anemia -Recent EGD on 12/15/2023 that showed normal esophagus, small hiatal hernia, oozing duodenal ulcers that were injected and treated with heater probe as well as a nonbleeding duodenal ulcer -Biopsies are unremarkable -Continue Protonix but increase dose from 40 mg daily to 40 mg p.o. twice daily -Continue home Carafate -Repeat CBC in a.m. - n.p.o. after midnight for EGD tomorrow Charges/Coding Visit Charges Inpatient E&M: 92048 Init Hosp L3
[2024-01-12] MEDS: Potassium Chloride Oral Tablet 20 MEQ 40 MEQ PO (18:48)
[2024-01-12] MEDS: Sucralfate 1 GM Tablet PO (21:32)
[2024-01-12] MEDS: Acetaminophen 325 MG Tablet 650 MG PO (21:32)
[2024-01-12] MEDS: Pantoprazole Sodium 40 MG in 0.9% Normal Saline (100mL MB+) 100 ML 330 MG IV (22:32)
[2024-01-13] VITALS (13 sets, daily range): BP systolic 90–146; BP diastolic 59–99; PULSE 70–85; RESP 14–18; TEMP 36.6–37.2; O2SAT 93–100; BMI 29.0
[2024-01-13 00:16] LABS: Hemoglobin 7.3 g/dL (13.0-16.5)
[2024-01-13 06:15] LABS: Absolute Lymphocyte Count 1.28 X10^3/uL (0.83-4.51); Absolute Neutrophil Count 3.9 X10^3/uL (2.0-7.7); Basophil# 0.05 X10^3/uL; Basophil% 0.8 % (0-1); Eosinophil# 0.11 X10^3/uL; Eosinophils% 1.8 % (0-5); Hematocrit 24.6 % (40-54); Hemoglobin 7.4 g/dL (13.0-16.5); Lymphocyte # 1.28 X10^3/ul (0.83-4.51); Lymphocyte % 21.1 % (19-41); Mean Corp Hgb Conc 30.1 g/dL (32-36); Mean Corpuscular Volume 99.6 fL (80-94); Mean Platelet Vol. 11.1 fl (6.2-12.0); Monocyte# 0.75 X10^3/uL; Monocyte% 12.4 % (0-10); NRBC Flagged by Analyzer 0 % (0-5); Neutrophil # 3.85 X10^3/uL (2.7-7.7); Neutrophil % 63.6 % (47-70); Platelet Count 186 K/mm3 (150-450); RBC Distribution Width CV 17.2 % (11.6-14.6); RBC Distribution Width SD 61.7 fl (35.1-43.9); Red Blood Count 2.47 M/mm3 (4.6-6.2); White Blood Count 6.1 K/mm3 (4.4-11.0)
[2024-01-13 06:30] LABS: Anion Gap 7 (5-15); BUN 47 mg/dL (7-18); BUN/Creat Ratio 8.3 RATIO (10-20); Calcium,Total 8.4 mg/dL (8.5-10.1); Chloride 96 mmol/L (98-107); Creatinine, Serum 5.65 mg/dL (0.70-1.30); EST Glomerular Filtration Rate 11 mL/min (>60); Est Glom Filt Rate - Afr Amer 13 mL/min (>60); Estimated Creatinine Clearance 14.66 ml/min; Glucose 79 mg/dL (74-106); Potassium 4.2 mmol/L (3.5-5.1); Sodium Level 138 mmol/L (136-145)
[2024-01-13] MEDS: Carvedilol 6.25 MG Tablet PO ×2 (08:07→18:09)
--- NOTE | 2024-01-13 08:30 | EGD_PTH ---
PATHOLOGY RESULTS PATIENT: BINDU DUMONT LOC: ICU U#:[id number] AGE/SX: 68/M ROOM: [place] [address] RE01/12/[address]: Dr. Kian Calvert MD : [id number] BED: 1 DIS: 01/14/2024 SPEC #: [id number] RECD: 01/14/24 08:56 STATUS: DALE REKizzy #: [id number] SHELBY: 01/13/24 08:[address]: Cade Ross DEPT: SURGICAL PATHOLOGY RECD BY: Alessia Pradhan ENTERED: 01/14/24 08:56 SP TYPE: EGD BIOPSY OTHR DR: MD Dr. Ofelia Palmer DO Dr. Michael Hughes, MD Dr. Marie Kuchynski, MD Dr. Prakash Chand, MD Tissues: Duodenum, NOS Procedures: Surgery Specimen Level IV Comments: @ Ordering doctor for SUIV edited from to @ by CATHY at 01/14/24 1443 @ Submitting doctor edited from to @ by CATHY at 01/14/24 1443 HEADER OPERATION: EGD, biopsy, electrohemostasis PRE-OP DIAGNOSIS: Acute on chronic anemia, upper GI bleed, hypokalemia, end-stage renal disease TISSUE SUBMITTED: Duodenal ulcer biopsy MICROSCOPIC DIAGNOSIS Duodenal ulcer, biopsy: Fragments of duodenal mucosa with focal superficial erosion, chronic inflammation and reactive changes. CHAPO:luis miguel 01/15/2024 MICROSCOPIC DESCRIPTION Slides are reviewed. GROSS DESCRIPTION Received in fixative is one container labeled with the patient's name and designated duodenal ulcer biopsy. The specimen consists of multiple irregular fragments of light hermosillo soft tissue that in aggregate measure 1.0 x 0.5 x 0.1 cm. The specimen is totally submitted in one cassette. / CHAPO:luis miguel 01/14/2024 TC:5 CPT: 69442
--- NOTE | 2024-01-13 09:19 | PCM.PN.HOSP ---
Reason for Visit Reason for Visit: Diagnoses Anemia, unspecified (01/12/24) Hypokalemia (01/12/24) Gastrointestinal hemorrhage, unspecified (01/12/24) End stage renal disease (01/12/24) Dependence on renal dialysis (01/12/24) Objective Data Objective Data Vital Signs: Vital Signs Temp Pulse Resp BP Pulse Ox O2 Del Method 97.9 F 77 16 136/96 H 100 Room Air 01/13/24 09:08 01/13/24 09:08 01/13/24 09:08 01/13/24 09:08 01/13/24 09:08 01/13/24 09:09 Oxygen Delivery Method Room Air Weight: 207 lb 7.28 oz Body Mass Index (BMI) 29.0 Intake & Output: Intake and Output for Last 24 Hours 01/11/24 01/12/24 01/13/24 23:59 23:59 23:59 Intake Total 110 / 110 Balance 110 / 110 Lab / Micro Data 01/13/24 05:10 01/13/24 05:10 Labs: Laboratory Results - last 24 hr 01/12/24 14:30: WBC 8.0, RBC 2.80 L, Hgb 8.7 L, Hct 27.6 L, MCV 98.6 H, MCH 31.1, MCHC 31.5 L, RDW Std Deviation 60.6 H, RDW Coeff of Brynn 17.0 H, Plt Count 206, MPV 10.4, Immature Gran % (Auto) 0.500, Neut % (Auto) 68.6, Lymph % (Auto) 17.0 L, [place] % (Auto) 12.4 H, Eos % (Auto) 0.9, Baso % (Auto) 0.6, Absolute Neuts (auto) 5.5, Absolute Lymphs (auto) 1.36, Nucleated RBC % 0, Sodium 137, Potassium 3.2 L, Chloride 96 L, Carbon Dioxide 38.0 H, Anion Gap 3 L, BUN 32 H, Creatinine 4.12 H, Estim Creat Clear Calc 20.24, Est GFR (MDRD) Af Amer 19 L, Est GFR (MDRD) Non-Af 15 L, BUN/Creatinine Ratio 7.8 L, Glucose 83, Calcium 8.4 L, Total Bilirubin 0.40, AST 13 L, ALT 11 L, Alkaline Phosphatase 60, Total Protein 7.1, Albumin 3.4, Globulin 3.7, Albumin/Globulin Ratio 0.9, Blood Type A POSITIVE, Antibody Screen NEGATIVE 01/12/24 15:13: PT 14.1, INR 1.1, APTT 30.5 01/12/24 17:16: Hgb 7.1 L 01/12/24 23:34: Hgb 7.3 L 01/13/24 05:10: WBC 6.1, RBC 2.47 L, Hgb 7.4 L, Hct 24.6 L, MCV 99.6 H, MCH 30.0, MCHC 30.1 L, RDW Std Deviation 61.7 H, RDW Coeff of Brynn 17.2 H, Plt Count 186, MPV 11.1, Immature Gran % (Auto) 0.300, Neut % (Auto) 63.6, Lymph % (Auto) 21.1, [place] % (Auto) 12.4 H, Eos % (Auto) 1.8, Baso % (Auto) 0.8, Absolute Neuts (auto) 3.9, Absolute Lymphs (auto) 1.28, Nucleated RBC % 0, Sodium 138, Potassium 4.2, Chloride 96 L, Carbon Dioxide 35.0 H, Anion Gap 7, BUN 47 H, Creatinine 5.65 H, Estim Creat Clear Calc 14.66, Est GFR (MDRD) Af Amer 13 L, Est GFR (MDRD) Non-Af 11 L, BUN/Creatinine Ratio 8.3 L, Glucose 79, Calcium 8.4 L Physical Exam Narrative Seen and examined. Patient admitted with melena. Denies abdominal pain. Recently was discharged 2 times after admission for GI bleed Physical exam General: Alert, Oriented x3, Cooperative HEENT: Atraumatic, PERRLA, EOMI, Normocephalic Oral: No Gingival or Mucosal Lesions/ Ulcerations Neck: Supple, No JVD, Negative Carotid Bruits Chest wall/Lungs: Air entry diminished in bilateral lung bases. No crepitation/rhonchi Cardiovascular: Sinus rhythm, normal S1, Normal S2, systolic murmur over right second ICS with radiation to carotids, bicuspid aortic valve, moderate aortic stenosis. Right subclavian artery surgery. Abdomen: Bowel Sounds Present, Soft, Non Tender, Non-Distended : No dysuria. No renal angle tenderness. No suprapubic tenderness. Extremities: No edema, Capillary Refill Less than 3 Seconds Skin: No rashes, No breakdown Musculoskeletal: No Tenderness to Palpation of Joints or Extremities Neurological: Cranial nerves II-XII grossly intact, DTR 2+/4. No acute focal neurological deficit. Psych/Mental Status: Normal Affect, Appropriate. Assessment & Plan Assessment/Plan (1) Acute on chronic anemia: (2) UGIB (upper gastrointestinal bleed): (3) Hypokalemia: (4) End stage renal disease on dialysis: PLAN: Plan 68-year-old gentleman came to ED with black tarry stool on past Thursday on 01/09/2023. His hemoglobin typically is around 11 g. He has multiple recent admissions for GI bleed and follows Dr. Ross. 1. Acute on chronic anemia -EGD on 12/15/2023 that showed normal esophagus, small hiatal hernia, oozing duodenal ulcers that were injected and treated with heater probe as well as a nonbleeding duodenal ulcer -Readmitted on 12/24/2023 and an EGD was done at that time and showed normal esophagus, mild Schatzki's ring, a single bleeding angiodysplastic lesion in the stomach which was treated with heater probe and an oozing duodenal ulcer that had pigmented material treated with heater probe -Continue Protonix -Colonoscopy was unremarkable -Protonix 40 mg BID IVP -Continue home Carafate -Patient saw Dr. Ross recently and he told him is okay to restart his aspirin and heparin with dialysis -N.p.o. at midnight with clear liquids for now -Consult gastroenterology for probable EGD tomorrow -Has chronic anemia secondary to chronic renal disease. Probably need to hold baby aspirin and heparin for 3 months. 2. Hypokalemia -Potassium 3.2 on admission -40 mEq given Repeat BMP shows potassium 4.2. Bicarb 35 anion gap 7. 3. Moderate aortic stenosis, mild AI due to bicuspid aortic valve, history of right subclavian artery surgery: Patient had echo on November 23, 2019 which shows bicuspid aortic valve, mean AV gradient 29 mmHg, calculated aortic valve area 1.2 cm squire, mild AI. Moderate concentric LVH, EF 65%, stage I diastolic function. 4. Generalized weakness -Weak again with darkening of stools -Will have PT and OT see him and see if he may qualify for outpatient therapy or home health -Consult case management/social work consultation to assist with discharge planning 5. End-stage renal disease on HD -Has dialysis Thursday//Thursday -Follows with Dr. Russo--> nephrology consulted. -Continue home phosphate binder -Continue home nephro vitamin CAD/hypertension -Continue home amlodipine -Continue home carvedilol 6.25 mg grams twice daily -Hold aspirin indefinitely Peptic ulcer disease -Continue Carafate and Protonix however Protonix will be IV for now -Outpatient GI follow-up after discharge History of migraines -Patient's not in any chronic medication -As needed Tylenol available History of subclavian aneurysm -Status postrepair History of rheumatoid arthritis/vasculitis -Patient is not on any chronic medication for this -Continue outpatient follow-up Tobacco abuse -Recommend cessation -Nicotine patch if patient desires DVT prophylaxis -SCDs for now given recent GI bleed CODE STATUS -Full code is verified on admission Charges/Coding Visit Charges Inpatient E&M: 97157 Subs Hosp L2
[2024-01-13] MEDS: Pantoprazole Sodium 40 MG in 0.9% Normal Saline (100mL MB+) 100 ML 330 MG IV ×2 (09:40→21:05)
--- NOTE | 2024-01-13 12:43 | CON.PCM.RE_ITS ---
Assessment & Plan Assessment/Plan (1) End stage renal disease on dialysis: PLAN: On hemodialysis. Thursday, , Thursday schedule. He did receive full dialysis yesterday. We will arrange for dialysis tomorrow. Anemia. With low iron. Has been getting IV iron with dialysis. Ongoing GI bleed. Transfuse if hemoglobin is less than 7. Scheduled for upper GI endoscopy today HPI Consult Data Date of Consult: 01/13/24 HPI Narrative Reason for Consultation: ESRD. HPI Narrative: BINDU DUMONT, is a 68 M who presents To the hospital with melena. She is w ell-known to us, known history of ESRD, on hemodialysis Thursday, , Thursday schedule. Recently having issues with GI bleed. Initially was found to have a duodenal ulcer which was treated. Had another episode of bleeding hence had a repeat endoscopy and colonoscopy. Despite this he continues to have melena. Routine blood work drawn in dialysis yesterday showed a hemoglobin dropped to 8.0. He had another episode of melena hence he was directed to GI office who advised him to come into the hospital. Scheduled for upper GI endoscopy today [facility] Medical History Acute on chronic anemia Acute upper GI bleed Bursitis Cardiac disease Chronic anemia Dialysis patient DVT (deep venous thrombosis) Generalized weakness Hepatitis History of end stage renal disease History of renal dialysis Kidney disease Kidney failure due to vascular disorder Migraines Non-smoker Problem with dialysis access Rectal bleeding Rheumatoid aortitis Rheumatoid vasculitis Secondary hyperparathyroidism Smoker Subclavian aneurysm Home Medications acetaminophen 500 mg tablet 500 mg PO DAILY PAIN 11/21/19 [History Last Taken 12/12/23] amlodipine 5 mg tablet 5 mg PO BID BLOOD PRESSURE 08/24/23 [History Last Taken 12/24/23] calcium acetate(phosphat bind) 667 mg capsule 2,668 mg PO TID PHOSPHATE LEVELS 12/12/23 [History Last Taken 12/23/23] carvedilol 6.25 mg tablet 6.25 mg PO BID HEART 12/12/23 [History Last Taken 12/24/23] vitamin B complex-vitamin C-folic acid 0.8 mg tablet (Nephro-Christiano) 1 tab PO DAILY RENAL HEALTH 12/12/23 [History Last Taken 12/23/23] pantoprazole 40 mg tablet,delayed release 40 mg PO DAILY REFLUX 90 days #90 tabs 12/28/23 [Rx Last Taken Unknown] sucralfate 1 gram tablet 1 g PO BID ULCER TREATMENT/PREVENTION 90 days #180 tabs 12/28/23 [Rx Last Taken Unknown] cyanocobalamin (vitamin B-12) 1,000 mcg tablet (Vitamin B-12) 1,000 mcg PO DAILY supplement 01/12/24 [History Last Taken Unknown] Allergy/AdvReac Type Severity Reaction Status Date / Time No Known Allergies Allergy Verified 01/12/24 13:32 Family History Other Cancer Diabetes Heart disease Surgical History History of bicuspid aortic valve History of umbilical hernia Hx of arteriovenostomy for renal dialysis (~12/2019) S/P knee surgery s/p subclavian graft Status post insertion of dialysis catheter (~11/2019) Social History household members: spouse housing: house Smoking Status: Current every day smoker tobacco type: cigarettes alcohol intake: never substance use type: does not use ROS ROS Narrative Negative except above Physical Exam Narrative Alert awake oriented x 3 no obvious distress no pallor no icterus no JVD s1s2 no murmurs lungs clear abdomen soft no organomegaly no edema no cyanosis Lab / Micro Data 01/13/24 05:10 01/13/24 05:10 Labs: Laboratory Results - last 24 hr 01/12/24 14:30: WBC 8.0, RBC 2.80 L, Hgb 8.7 L, Hct 27.6 L, MCV 98.6 H, MCH 31.1, MCHC 31.5 L, RDW Std Deviation 60.6 H, RDW Coeff of Brynn 17.0 H, Plt Count 206, MPV 10.4, Immature Gran % (Auto) 0.500, Neut % (Auto) 68.6, Lymph % (Auto) 17.0 L, [place] % (Auto) 12.4 H, Eos % (Auto) 0.9, Baso % (Auto) 0.6, Absolute Neuts (auto) 5.5, Absolute Lymphs (auto) 1.36, Nucleated RBC % 0, Sodium 137, Potassium 3.2 L, Chloride 96 L, Carbon Dioxide 38.0 H, Anion Gap 3 L, BUN 32 H, Creatinine 4.12 H, Estim Creat Clear Calc 20.24, Est GFR (MDRD) Af Amer 19 L, Est GFR (MDRD) Non-Af 15 L, BUN/Creatinine Ratio 7.8 L, Glucose 83, Calcium 8.4 L, Total Bilirubin 0.40, AST 13 L, ALT 11 L, Alkaline Phosphatase 60, Total Protein 7.1, Albumin 3.4, Globulin 3.7, Albumin/Globulin Ratio 0.9, Blood Type A POSITIVE, Antibody Screen NEGATIVE 01/12/24 15:13: PT 14.1, INR 1.1, APTT 30.5 01/12/24 17:16: Hgb 7.1 L 01/12/24 23:34: Hgb 7.3 L 01/13/24 05:10: WBC 6.1, RBC 2.47 L, Hgb 7.4 L, Hct 24.6 L, MCV 99.6 H, MCH 30.0, MCHC 30.1 L, RDW Std Deviation 61.7 H, RDW Coeff of Brynn 17.2 H, Plt Count 186, MPV 11.1, Immature Gran % (Auto) 0.300, Neut % (Auto) 63.6, Lymph % (Auto) 21.1, [place] % (Auto) 12.4 H, Eos % (Auto) 1.8, Baso % (Auto) 0.8, Absolute Neuts (auto) 3.9, Absolute Lymphs (auto) 1.28, Nucleated RBC % 0, Sodium 138, Potassium 4.2, Chloride 96 L, Carbon Dioxide 35.0 H, Anion Gap 7, BUN 47 H, Creatinine 5.65 H, Estim Creat Clear Calc 14.66, Est GFR (MDRD) Af Amer 13 L, Est GFR (MDRD) Non-Af 11 L, BUN/Creatinine Ratio 8.3 L, Glucose 79, Calcium 8.4 L
--- NOTE | 2024-01-13 13:30 | OP.EGD_ITS ---
Patient Name: Barry Joe Procedure Date: 01/13/2024 1:05 PM Date of : 1955 Age: 68 Procedure: Upper GI endoscopy Indications: Iron deficiency anemia, Melena Providers: Cade Ross DO Medicines: Monitored Anesthesia Care Patient Profile: This is a 68 year old male. Refer to note in patient chart for documentation of history and physical. Patient has symptoms of acute dyspepsia. His most recent EGD for treatment of bleeding was within the past month. Complications: No immediate complications. Procedure: Pre-Anesthesia Assessment: - Prior to the procedure, a History and Physical was performed, and patient medications and allergies were reviewed. The patient is competent. The risks and benefits of the procedure and the sedation options and risks were discussed with the patient. All questions were answered and informed consent was obtained. Patient identification and proposed procedure were verified by the physician in the pre-procedure area. Mental Status Examination: alert and oriented. Airway Examination: normal oropharyngeal airway and neck mobility. Respiratory Examination: clear to auscultation. CV Examination: normal. Prophylactic Antibiotics: The patient does not require prophylactic antibiotics. Prior Anticoagulants: The patient has taken no anticoagulant or antiplatelet agents. ASA Grade Assessment: III - A patient with severe systemic disease. After reviewing the risks and benefits, the patient was deemed in satisfactory condition to undergo the procedure. The anesthesia plan was to use monitored anesthesia care (MAC). Immediately prior to administration of medications, the patient was re-assessed for adequacy to receive sedatives. The heart rate, respiratory rate, oxygen saturations, blood pressure, adequacy of pulmonary ventilation, and response to care were monitored throughout the procedure. The physical status of the patient was re-assessed after the procedure. After obtaining informed consent, the endoscope was passed under direct vision. Throughout the procedure, the patient's blood pressure, pulse, and oxygen saturations were monitored continuously. The Colonoscope was introduced through the mouth, and advanced to the second part of duodenum. The upper GI endoscopy was accomplished without difficulty. The patient tolerated the procedure well. Scope In: 1:14:55 PM Scope Out: 1:26:44 PM Total Procedure Duration Time 0 hours 11 minutes 49 seconds Findings: The examined esophagus was normal. A small hiatal hernia was present. No other significant abnormalities were identified in a careful examination of the stomach. One oozing linear duodenal ulcer with a visible vessel was found in the duodenal bulb. The lesion was 5 mm in largest dimension. Area was successfully injected with 5 mL of a 0.1 mg/mL solution of epinephrine for drug delivery. Coagulation for hemostasis using heater probe was successful. Estimated blood loss was minimal. Impression: - Normal esophagus. - Small hiatal hernia. - Oozing duodenal ulcer with a visible vessel. Injected. Treated with a heater probe. - No specimens collected. Recommendation: - Return patient to [facility] for ongoing care. - Full liquid diet. - Continue present medications. - Await pathology results. Procedure Code(s): --- Professional --- 47372, Esophagogastroduodenoscopy, flexible, transoral; with control of bleeding, any method 61458, 59,51, Esophagogastroduodenoscopy, flexible, transoral; with directed submucosal injection(s), any substance CPT copyright 2021 [employer]. All rights reserved. The codes documented in this report are preliminary and upon insurance coder review may be revised to meet current compliance requirements. Cade Ross DO 01/13/2024 1:30:25 PM This report has been signed electronically. Number of Addenda: 0 Note Initiated On: 01/13/2024 1:05 PM
--- NOTE | 2024-01-13 13:31 | OP.CCLET_ITS ---
01/13/2024 Bekah Washington Md Re : Upper GI endoscopy procedure for Barry Joe Dear Padmini This procedure was performed on Saturday, January 13, 2024. My impressions and recommendations are as follows: Impressions : - Normal esophagus. - Small hiatal hernia. - Oozing duodenal ulcer with a visible vessel. Injected. Treated with a heater probe. - No specimens collected. Recommendations : - Return patient to [facility] for ongoing care. - Full liquid diet. - Continue present medications. - Await pathology results. My findings are described in the full procedure note, which is enclosed. If I can be of further assistance, please feel free to contact me at . Sincerely, Cade Ross, 01/13/2024 1:30:25 PM This report has been signed electronically.
--- NOTE | 2024-01-13 14:58 | ECHOD_ITS ---
Reason For Study: AND AI Procedure This was a 2D Doppler, Color Flow transthoracic echocardiogram. Exam performed portable in patient room. Left Ventricle Moderately dilated left ventricle. Mild concentric left ventricular hypertrophy. The left ventricular ejection fraction is 45 %. Diastolic function is indeterminate. Right Ventricle Normal right ventricle. Atria The left atrium is moderately enlarged. Normal right atrium. Mitral Valve Moderately severe (3+) posteriorly directed mitral valve insufficiency. Tricuspid Valve Trivial tricuspid valve insufficiency. Unable to estimate RV systolic pressure due to insufficient tricuspid regurgitant envelope. Aortic Valve The aortic valve is not well visualized in the short axis view. Severe aortic stenosis. Mild- Moderate (1-2+) aortic valve insufficiency. Pulmonic Valve The pulmonic valve is not well visualized. Great Vessels Mildly dilated aortic root. Pericardium/Pleural No pericardial effusion. MMode/2D Measurements & Calculations LVIDd: 6.6 cm IVSd: 1.3 cm LVOT diam: 2.1 cm LVIDs: 4.8 cm LVPWd: 1.2 cm LVOT area: 3.6 cm2 RVDd: 3.3 cm FS: 27.6 % Ao root diam: 3.9 cm LAV(MOD-bp): 92.7 ml LVAd ap4: 45.7 cm2 LAV(MOD-bp) Indexed: 43.3 ml/m2 LVLd ap4: 9.7 cm LAV(MOD-sp2): 123.1 ml EDV(MOD-sp4): 174.5 ml LAV(MOD-sp4): 70.0 ml EDV(sp4-el): 181.5 ml LVAs ap4: 31.8 cm2 LVLs ap4: 8.8 cm ESV(MOD-sp4): 96.9 ml ESV(sp4-el): 97.9 ml EF(MOD-sp4): 44.5 % EF(sp4-el): 46.1 % LVAd ap2: 46.8 cm2 SV(MOD-sp4): 77.6 ml SV(MOD-sp2): 85.0 ml LVLd ap2: 9.7 cm EDV(MOD-sp2): 183.9 ml EDV(sp2-el): 191.2 ml LVAs ap2: 32.2 cm2 LVLs ap2: 8.8 cm ESV(MOD-sp2): 98.9 ml ESV(sp2-el): 99.6 ml EF(MOD-sp2): 46.2 % SV(sp4-el): 83.6 ml LA dimension(2D): 4.6 cm LA A4 area: 22.5 cm2 RA A4 area: 13.9 cm2 TAPSE: 2.5 cm Time Measurements MV dec time: 0.12 sec Doppler Measurements & Calculations MV E max tejas: 120.3 cm/sec Lat Peak E' Tejas: 7.3 cm/sec Med Peak E' Tejas: 5.9 cm/sec MV A max tejas: 141.2 cm/sec E/E' lat: 16.5 E/E' med: 20.4 MV E/A: 0.85 MV V2 max: 150.4 cm/sec Ao V2 max: 444.6 cm/sec MV max P.1 mmHg MV dec slope: 1001 cm/sec2 Ao max P.2 mmHg MV V2 mean: 115.4 cm/sec Ao V2 mean: 341.3 cm/sec MV mean P.6 mmHg Ao mean P.4 mmHg MV V2 VTI: 33.2 cm Ao V2 VTI: 107.5 cm AV (velocity ratio): 0.29 MVA(VTI): 3.4 cm2 BRITTANY(I,D): 1.1 cm2 BRITTANY(V,D): 0.88 cm2 AI max tejas: 450.0 cm/sec LV V1 max: 109.0 cm/sec SV(LVOT): 114.2 ml AI max P.4 mmHg LV V1 max P.8 mmHg AI dec slope: 442.2 cm/sec2 LV V1 mean P.0 mmHg AI P1/2t: 298.0 msec LV V1 mean: 82.2 cm/sec LV V1 VTI: 31.7 cm PA V2 max: 73.9 cm/sec PA max PG (full): 0.09 mmHg ECHO/Echo Complete Interpretation Summary There is a moderate sized posterior and lateral wall motion abnormality with hy pokinesis of the segments. The left ventricular ejection fraction is 45-50 %. Diastolic function is indeterminate. Moderately dilated left ventricle. Mild concentric left ventricular hypertrophy. Moderately severe (3+) posteriorly directed mitral valve insufficiency. Mild-Moderate (1-2+) aortic valve insufficiency. Severe aortic stenosis. Mean peak gradient 50 mmHg Ordering Physician: Kian Calvert Performed By: Vanessa Kamara RDCS
--- NOTE | 2024-01-13 15:56 | CASEMGMT ---
REBECCA REDMOND Readmission Note Previous Admission: 12/24/23-12/26/23 Diagnosis: anemia DC Disposition: Home with outpt therapy rx Current Admission: Admitted 01/12/24 Current Diagnosis: UGIB Pt admitted as above with anemia, Hgb of 7.6. Pt received packed red blood cells. He underwent a EGD which showed a single lesion and oozing duodenal ulcer that were both treated with heater probe. A mild schatzkis ring was noted. Pt also had a colonoscopy with poor prep and showed a small polyp that was removed. Pt to have follow up colonoscopy d/t prep in 3mos. Pt was dc?d home with outpt therapy rx and follow up with PCP in 1 month. Pt returned to [facility] ER with UGIB. Pt was directed to come to ER after dialysis by GI. Pt has dialysis on at 9:15 at [facility]. REBECCA REDMOND into pt room, pt sitting on edge of bed, had EGD today, pt present. Pt states he took his meds as ordered after last hospitalization. He did not go to outpt therapy and states he was fine at home until his hgb dropped. Pt does still have the rx and will decide if he needs this post dc. Pt states he has not followed with his PCP and does not know if he will. He states he may switch PCP's. Provided pt with a local healthcare directory pamphlet. Pt and deny further needs. 6 clicks=23. DC Plan: Home with support, pt may use his outpt therapy rx that he already has.
[2024-01-13 15:58] LABS: Hemoglobin 7.5 g/dL (13.0-16.5)
[2024-01-13] MEDS: Sucralfate 1 GM Tablet PO (21:07)
[2024-01-14] VITALS (21 sets, daily range): BP systolic 107–282; BP diastolic 52–105; PULSE 81–108; RESP 13–20; TEMP 36.6–36.7; O2SAT 92–100; BMI 29.0; BMI 27.8
--- NOTE | 2024-01-14 03:42 | EKG12_ITS ---
Test Reason : CP Blood Pressure : / mmHG Vent. Rate : 087 BPM Atrial Rate : 087 BPM P-R Int : 198 ms QRS Dur : 094 ms QT Int : 394 ms P-R-T Axes : 049 -18 009 degrees QTc Int : 474 ms Sinus rhythm with Premature atrial complexes Inferior infarct , age undetermined Cannot rule out Anterior infarct (cited on or before 14-JAN-2024) Abnormal ECG Confirmed by Aric Palomo ([id number]), editor news BHAVNA LOOMIS ([id number]) on 01/19/2024 8:21:48 AM Referred By: ABDULKADIR Confirmed By:Aric Palomo
[2024-01-14] MEDS: Calcium Carbonate 500 MG Tablet 1000 MG PO (04:12)
[2024-01-14] MEDS: Mag Hydrox/Al Hydrox/Simeth 30 ML UDC PO (04:58)
[2024-01-14 05:17] LABS: Absolute Lymphocyte Count 0.78 X10^3/uL (0.83-4.51); Absolute Neutrophil Count 4.7 X10^3/uL (2.0-7.7); Basophil# 0.04 X10^3/uL; Basophil% 0.6 % (0-1); Eosinophil# 0.11 X10^3/uL; Eosinophils% 1.7 % (0-5); Hematocrit 27.2 % (40-54); Hemoglobin 8.5 g/dL (13.0-16.5); Lymphocyte # 0.78 X10^3/ul (0.83-4.51); Lymphocyte % 12.1 % (19-41); Mean Corp Hgb Conc 31.3 g/dL (32-36); Mean Corpuscular Hgb 30.6 pg (27.0-32.0); Mean Corpuscular Volume 97.8 fL (80-94); Mean Platelet Vol. 10.9 fl (6.2-12.0); Monocyte# 0.81 X10^3/uL; Monocyte% 12.6 % (0-10); NRBC Flagged by Analyzer 0 % (0-5); Neutrophil # 4.68 X10^3/uL (2.7-7.7); Neutrophil % 72.7 % (47-70); Platelet Count 192 K/mm3 (150-450); RBC Distribution Width CV 17.8 % (11.6-14.6); RBC Distribution Width SD 62.9 fl (35.1-43.9); Red Blood Count 2.78 M/mm3 (4.6-6.2); White Blood Count 6.4 K/mm3 (4.4-11.0)
[2024-01-14] MEDS: Acetaminophen 325 MG Tablet 650 MG PO (05:27)
[2024-01-14 05:36] LABS: Troponin-I HS 115 pg/mL (3.0-78.0)
[2024-01-14 05:46] LABS: Anion Gap 11 (5-15); BUN 62 mg/dL (7-18); BUN/Creat Ratio 8.4 RATIO (10-20); Calcium,Total 8.9 mg/dL (8.5-10.1); Chloride 96 mmol/L (98-107); Creatinine, Serum 7.34 mg/dL (0.70-1.30); EST Glomerular Filtration Rate 8 mL/min (>60); Est Glom Filt Rate - Afr Amer 10 mL/min (>60); Estimated Creatinine Clearance 11.27 ml/min; Glucose 110 mg/dL (74-106); Potassium 4.7 mmol/L (3.5-5.1); Sodium Level 137 mmol/L (136-145)
--- NOTE | 2024-01-14 05:46 | PCM.HOSP.N ---
Hospitalist Note Patient with chest pain overnight, initially concerned dyspepsia; however, worse than normal, Hgb this AM appropriate. EKG without acute findings. No success with mylanta/tums ordered. Trop initial 115 but patient is of note ESRD and it is chronically elevated. NG, morphine. Patient very anxious thus discussed with staff plan for PCU transition, cycle cardiac enzymes and per discussion will have cardiology involvement. Patient does have history of bicuspid AV other no cardiac history noted in history section.
--- NOTE | 2024-01-14 05:52 | NURSING ---
sera notified of pt being transferred to icu bed 204
[2024-01-14 06:06] LABS: Cholesterol 132 mg/dL (200); High Density Lipoprotein 39 mg/dL; Magnesium 2.8 mg/dL (1.6-2.6); Triglycerides 97 mg/dL; Very Low Density Lipoprotein 19 mg/dL (5-40)
--- NOTE | 2024-01-14 06:16 | NURSING ---
called report to icu. pt transferred to 204
[2024-01-14] MEDS: Morphine 2 MG/ML Syringe IV (06:47)
--- NOTE | 2024-01-14 07:47 | PCM.CONS.C ---
Assessment & Plan Assessment/Plan (1) ESRD (end stage renal disease) on dialysis: PLAN: The patient has been on renal replacement therapy with hemodialysis for 4 years. He reports he tolerates this well and his blood pressures have been maintained to 130/80 range in his home environment. The patient appears to be volume overloaded this morning he did receive blood yesterday and is scheduled for dialysis this morning. (2) Chest pain: QUALIFIERS: Chest pain type: unspecified Qualified Code(s): R07.9 - Chest pain, unspecified PLAN: The patient developed an episode of chest discomfort late last night early this morning. It improved with sitting up and oxygen therapy. By physical exam he is volume overloaded and is due for dialysis this morning. I suspect that his chest discomfort is related to a combination of his tobacco use with his pulmonary insufficiency in the face of volume overload. This would explain the small bump in troponins to 115 he has had a history of this in the past. The level of troponins are inaccurate in the face of end-stage renal disease. (3) Bicuspid aortic valve determined by imaging: PLAN: Patient carries a history of bicuspid aortic valve. He does not remember the last time he had an echocardiogram done. He has not followed up routinely. The valve does not sound critical but it does sound like there is significant aortic stenosis. The gradients are overestimated in the face of his hemoglobin of 7 when the echo was done. This echo should be repeated after his hemoglobin is replaced and he is back to his stable chronic anemia level. Ideally this should be a hemoglobin above 10 but he may never reside at that level given his end-stage renal disease. The patient also has aortic insufficiency and mitral regurgitation both of which could be overestimated with the gradients being falsely elevated. The LV function is impaired with an EF of 45% with mild LVH but he has segmental wall motion abnormality in the posterior lateral segments. This is not inconsistent with his EKG. The patient will require invasive right and left heart cath evaluation in the future. The approach should be via the femoral approach as the patient has dialysis fistula in his left forearm and he has a surgically repaired grafted right subclavian artery. Pulses are very diminished at both radial sites. (4) Tobacco use: PLAN: The patient has pulmonary insufficiency by physical exam and he continues to smoke. I counseled him briefly on the mandatory nature he stop smoking. 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 I feel if he could accomplish this he should be able to stop smoking on his own. (5) Acute on chronic anemia: PLAN: The patient has a history of chronic anemia this will be followed and treated expectantly by the primary service. Once he is felt to be at his chronic hemoglobin level we will repeat his echocardiogram which can be done in the ambulatory setting. The patient has baseline hemoglobin is between 11 and 12. It was actually 12 last July. This was after he had been on hemodialysis for 3 years. (6) UGIB (upper gastrointestinal bleed): PLAN: The GI bleed is being handled by gastroenterology and the primary service. This will need to be well-healed before we proceed with any type of cardiovascular invasive evaluation. PLAN: Plan 1. The patient dialysis will be done today hopefully he will be able to get another unit of blood during dialysis. 2. The patient be followed up in our office after discharge. 3. If the patient hemoglobin gets back to his baseline prior to discharge would repeat his echocardiogram. Otherwise, we will repeat the echocardiogram in the ambulatory setting. 4. The patient needs to concentrate on cessation of tobacco use. It is highly likely that he will need some intervention on this valve in the near future. Pending his coronary anatomy he may require surgical intervention. 5. Once we have the hemodynamic data and invasive evaluation of his coronary anatomy and valvular heart disease he will be referred to the structural heart program for further evaluation and potential therapies including TAVR versus open surgical procedure. 6. He will probably be 6 to 8 weeks before he is back to baseline he has had recurrent GI bleeds in mid December and then again this month in January. 7. I discussed the situation with his who works in the legal field. I went over the details of the plans and options for potential future interventions. HPI Consult Data Date of Consult: 01/14/24 HPI Narrative Reason for Consultation: Chest Pain HPI Narrative: BINDU DUMONT, is a 68 M who presents with a history of GI bleed on 01/12/2024. He underwent endoscopic treatment of an oozing duodenal ulcer on 01/13/2024. The patient has a history of end-stage renal disease on renal replacement therapy with hemodialysis. He also has a history of a bicuspid aortic valve and rheumatoid vasculitis. The patient reports that he is intermittently been short of breath and his chest discomfort he complained of has resolved spontaneously. The patient's EKG did not show any acute ischemic changes. He had a troponin of 115 but this has been in this range prior by report due to his end-stage renal disease. Currently the patient denies any chest symptoms but he is struggling to breathe and requiring to be sitting straight up in the bed. He is on supplemental oxygen and he is due for dialysis this morning. He received a unit of blood yesterday and his hemoglobin went from 7 up to the little over 8. An echocardiogram done earlier in this admission when his hemoglobin was 7 showed left-ventricular ejection fraction of 45% there was some posterior lateral segmental wall motion changes mild dilation with mild left ventricular prophy. He had moderate left atrial enlargement 3+ mitral regurgitation 2+ aortic insufficiency would severe aortic stenosis with a peak gradient of 79 mean gradient of 50. However this was done when the patient was anemic. Therefore potentially giving falsely elevated gradients. The patient's lipids are in good shape he denies diabetes mellitus he does have a history of hypertension. The patient does continue to smoke. There is a family history of the ill described heart disease. The patient has a history of the rheumatoid vasculitis that he reports is the etiology of his end-stage renal disease. He has been on hemodialysis for 4 years. He also is status post a right subclavian aneurysm repair with graft material by Dr. Traore [facility] several years ago. He has a history of chronic lower extremity edema and has a compression apparatus in place. He denies any lower extremity chronic wounds or ulcers. Blood pressures he reports normally runs in the 130/80 range in his home environment. [facility] Medical History Acute on chronic anemia Acute upper GI bleed Bursitis Cardiac disease Chronic anemia Dialysis patient DVT (deep venous thrombosis) Generalized weakness Hepatitis History of end stage renal disease History of renal dialysis Kidney disease Kidney failure due to vascular disorder Migraines Non-smoker Problem with dialysis access Rectal bleeding Rheumatoid aortitis Rheumatoid vasculitis Secondary hyperparathyroidism Smoker Subclavian aneurysm Home Medications acetaminophen 500 mg tablet 500 mg PO DAILY PAIN 11/21/19 [History Last Taken 12/12/23] amlodipine 5 mg tablet 5 mg PO BID BLOOD PRESSURE 08/24/23 [History Last Taken 12/24/23] calcium acetate(phosphat bind) 667 mg capsule 2,668 mg PO TID PHOSPHATE LEVELS 12/12/23 [History Last Taken 12/23/23] carvedilol 6.25 mg tablet 6.25 mg PO BID HEART 12/12/23 [History Last Taken 12/24/23] vitamin B complex-vitamin C-folic acid 0.8 mg tablet (Nephro-Christiano) 1 tab PO DAILY RENAL HEALTH 12/12/23 [History Last Taken 12/23/23] pantoprazole 40 mg tablet,delayed release 40 mg PO DAILY REFLUX 90 days #90 tabs 12/28/23 [Rx Last Taken Unknown] sucralfate 1 gram tablet 1 g PO BID ULCER TREATMENT/PREVENTION 90 days #180 tabs 12/28/23 [Rx Last Taken Unknown] cyanocobalamin (vitamin B-12) 1,000 mcg tablet (Vitamin B-12) 1,000 mcg PO DAILY supplement 01/12/24 [History Last Taken Unknown] Allergy/AdvReac Type Severity Reaction Status Date / Time No Known Allergies Allergy Verified 01/12/24 13:32 Family History Other Cancer Diabetes Heart disease Surgical History History of bicuspid aortic valve History of umbilical hernia Hx of arteriovenostomy for renal dialysis (~12/2019) S/P knee surgery s/p subclavian graft Status post insertion of dialysis catheter (~11/2019) Social History household members: spouse housing: house Smoking Status: Current every day smoker tobacco type: cigarettes alcohol intake: never substance use type: does not use ROS Constitutional Constitutional: Reports as per HPI Eyes Eyes: Reports systems reviewed and no addt'l complaints, except as documented ENT HEENT: Reports systems reviewed and no addt'l complaints, except as documented Cardiovascular Cardiovascular: Reports as per HPI Respiratory/Chest Respiratory/Chest: Reports as per HPI Gastrointestinal Gastrointestinal: Reports systems reviewed and no addt'l complaints, except as documented Genitourinary Genitourinary: Reports systems reviewed and no addt'l complaints, except as documented Musculoskeletal Musculoskeletal: Reports systems reviewed and no addt'l complaints, except as documented Integumentary Integumentary: Reports systems reviewed and no addt'l complaints, except as documented Neurologic Neurologic: Reports systems reviewed and no addt'l complaints, except as documented Psychiatric Psychiatric: Reports systems reviewed and no addt'l complaints, except as documented Endocrine Endocrinology: Reports systems reviewed and no addt'l complaints, except as documented Hematologic/Lymphatic Hematologic/Lymphatic: Reports as per HPI Allergic/Immunologic Allergic/Immunologic: Reports systems reviewed and no addt'l complaints, except as documented Physical Exam Const oriented x3 HEENT normocephalic Eyes EOMs intact bilaterally Neck no carotid bruits Chest inspection of chest normal Resp Effort and Inspection: uses accessory muscles Auscultation: rales bilateral base and diminished lung sounds bilateral lower Cardio regular rate, regular rhythm and S1 normal heart sound Heart Sounds: murmur systolic III/ harsh holo left sternal border, right sternal border and other (Radiates widely across the precordium.) and abnormal sounds diminished A2 Bruits: Negative for carotid bruit Peripheral Pulses: radial pulses present bilateral diminished and femoral pulses present bilateral (No femoral bruits auscultated.) diminished GI soft to palpation, non-tender and no bruits Extremity Extremity Narrative: There are compression devices on both lower extremities and his feet are covered with thick socks. These are up underneath the compression devices which were not removed. Skin no rashes or lesions noted Neuro Neuro Narrative: Alert and oriented x 3 Psych mental status grossly normal Risk Stratification Risk Stratification Applicable: Yes Age >/= 65: Yes >/= 3 CAD Risk Factors (HTN, HLD, DM, family hx of CAD, or current smoker): Yes Aspirin Use in the Past 7 Days: No Severe Angina (>/= episodes in 24 hours): No EKG ST Changes >/= 0.5mm: No Positive Cardiac Marker: Yes CHRISTA Risk Stratification Score: 3 CHRISTA % Risk: 13% Risk Charges/Coding Visit Charges Inpatient E&M: 79184 Init Hosp L3 Objective Data Vital Signs: Vital Signs Temp Pulse Resp BP Pulse Ox O2 Del Method O2 Flow Rate 98.0 F 91 15 157/102 H 93 Nasal Cannula 3 01/14/24 06:42 01/14/24 07:11 01/14/24 07:11 01/14/24 06:42 01/14/24 07:11 01/14/24 07:11 01/14/24 07:11 Oxygen Flow Rate (L/min) 3 Oxygen Delivery Method Nasal Cannula Weight: 207 lb 0.225 oz Body Mass Index (BMI) 29.0 Intake & Output: Intake and Output for Last 24 Hours 01/12/24 01/13/24 01/14/24 23:59 23:59 23:59 Intake Total 110 / 110 621 / 621 250 / 250 Balance 110 / 110 621 / 621 250 / 250 Lab / Micro Data 01/14/24 05:03 01/14/24 05:03 Labs: Laboratory Results - last 24 hr 01/12/24 14:30: Crossmatch See Detail 01/13/24 15:36: Hgb 7.5 L, Hct 25.0 L 01/14/24 05:03: WBC 6.4, RBC 2.78 L, Hgb 8.5 L, Hct 27.2 L, MCV 97.8 H, MCH 30.6, MCHC 31.3 L, RDW Std Deviation 62.9 H, RDW Coeff of Brynn 17.8 H, Plt Count 192, MPV 10.9, Immature Gran % (Auto) 0.300, Neut % (Auto) 72.7 H, Lymph % (Auto) 12.1 L, [place] % (Auto) 12.6 H, Eos % (Auto) 1.7, Baso % (Auto) 0.6, Absolute Neuts (auto) 4.7, Absolute Lymphs (auto) 0.78 L, Nucleated RBC % 0, Sodium 137, Potassium 4.7, Chloride 96 L, Carbon Dioxide 30.0, Anion Gap 11, BUN 62 H, Creatinine 7.34 H, Estim Creat Clear Calc 11.27, Est GFR (MDRD) Af Amer 10 L, Est GFR (MDRD) Non-Af 8 L, BUN/Creatinine Ratio 8.4 L, Glucose 110 H, Calcium 8.9, Troponin I High Sens 115 H 01/14/24 05:12: Magnesium 2.8 H, Triglycerides 97, Cholesterol 132, LDL Cholesterol 74, VLDL Cholesterol 19, HDL Cholesterol 39 L Rhythm Strip Rhythm Strip: Sinus Rhythm Rate: 100 Cardiology Labs/Tests 01/13/24 15:36: Hgb 7.5 L, Hct 25.0 L 01/14/24 05:03: WBC 6.4, RBC 2.78 L, Hgb 8.5 L, Hct 27.2 L, MCV 97.8 H, MCH 30.6, MCHC 31.3 L, Plt Count 192, MPV 10.9, Immature Gran % (Auto) 0.300, Neut % (Auto) 72.7 H, Lymph % (Auto) 12.1 L, [place] % (Auto) 12.6 H, Eos % (Auto) 1.7, Baso % (Auto) 0.6, Absolute Neuts (auto) 4.7, Nucleated RBC % 0, Sodium 137, Potassium 4.7, Chloride 96 L, Carbon Dioxide 30.0, Anion Gap 11, BUN 62 H, Creatinine 7.34 H, Est GFR (MDRD) Af Amer 10 L, Est GFR (MDRD) Non-Af 8 L, BUN/Creatinine Ratio 8.4 L, Glucose 110 H, Calcium 8.9 01/14/24 05:12: Magnesium 2.8 H, Triglycerides 97, Cholesterol 132, LDL Cholesterol 74, VLDL Cholesterol 19, HDL Cholesterol 39 L Rhythm: EKG: ECHO: Stress Test: Cardiac Cath: PCI: CT Surgery: Holter monitor: EPS: PPM: CXR: Chest CT Scan: Radiography Diagnostic Testing: Radiology Impression Echocardiogram 01/13/24 14:58 Interpretation Summary There is a moderate sized posterior and lateral wall motion abnormality with hypokinesis of the segments. The left ventricular ejection fraction is 45-50 %. Diastolic function is indeterminate. Moderately dilated left ventricle. Mild concentric left ventricular hypertrophy. Moderately severe (3+) posteriorly directed mitral valve insufficiency. Mild-Moderate (1-2+) aortic valve insufficiency. Severe aortic stenosis. Mean peak gradient 50 mmHg Ordering Physician: Kian Calvert Performed By: Vanessa Kamara RDCS Initial EKG: Attestation: I personally reviewed and interpreted this EKG as follows: Interpretation: Normal sinus rhythm at 85 bpm. Some possible old inferior wall infarct and poor R wave progression. This is unchanged from December 24, 2023.
--- NOTE | 2024-01-14 08:00 | NURSING ---
pt in chair mode and getting ready to be hooked up to dialysis this am. spoke with cardiology and would like pt to have another unit prbc this am with dialysis. called and updated on poc. no questions at this time. pt with no further cp since morphine given
[2024-01-14] MEDS: 0.9% Normal Saline 1,000 ML IV.SOLN. 1000 ML OPERA.SITE (08:05)
[2024-01-14] MEDS: PureFlow B 2K Dialysis Soln 1 BAG 6 BAG PF (08:06)
--- NOTE | 2024-01-14 09:09 | PN.HOSP_ITS ---
Reason for Visit Reason for Visit: Diagnoses Anemia, unspecified (01/12/24) Hypokalemia (01/12/24) Gastrointestinal hemorrhage, unspecified (01/12/24) End stage renal disease (01/12/24) Congenital insufficiency of aortic valve (01/12/24) Chest pain, unspecified (01/12/24) Tobacco use (01/12/24) Dependence on renal dialysis (01/12/24) Objective Data Objective Data Vital Signs: Vital Signs Temp Pulse Resp BP Pulse Ox O2 Del Method O2 Flow Rate 98.0 F 84 15 149/95 H 100 Nasal Cannula 5 01/14/24 06:42 01/14/24 08:52 01/14/24 08:52 01/14/24 08:52 01/14/24 08:52 01/14/24 08:52 01/14/24 08:52 Oxygen Flow Rate (L/min) 5 Oxygen Delivery Method Nasal Cannula Weight: 207 lb 0.225 oz Body Mass Index (BMI) 29.0 Intake & Output: Intake and Output for Last 24 Hours 01/12/24 01/13/24 01/14/24 23:59 23:59 23:59 Intake Total 110 / 110 621 / 621 250 / 250 Balance 110 / 110 621 / 621 250 / 250 Lab / Micro Data 01/14/24 05:03 01/14/24 05:03 Labs: Laboratory Results - last 24 hr 01/12/24 14:30: Crossmatch See Detail 01/13/24 15:36: Hgb 7.5 L, Hct 25.0 L 01/14/24 05:03: WBC 6.4, RBC 2.78 L, Hgb 8.5 L, Hct 27.2 L, MCV 97.8 H, MCH 30.6, MCHC 31.3 L, RDW Std Deviation 62.9 H, RDW Coeff of Brynn 17.8 H, Plt Count 192, MPV 10.9, Immature Gran % (Auto) 0.300, Neut % (Auto) 72.7 H, Lymph % (Auto) 12.1 L, [place] % (Auto) 12.6 H, Eos % (Auto) 1.7, Baso % (Auto) 0.6, Absolute Neuts (auto) 4.7, Absolute Lymphs (auto) 0.78 L, Nucleated RBC % 0, Sodium 137, Potassium 4.7, Chloride 96 L, Carbon Dioxide 30.0, Anion Gap 11, BUN 62 H, Creatinine 7.34 H, Estim Creat Clear Calc 11.27, Est GFR (MDRD) Af Amer 10 L, Est GFR (MDRD) Non-Af 8 L, BUN/Creatinine Ratio 8.4 L, Glucose 110 H, Calcium 8.9, Troponin I High Sens 115 H 01/14/24 05:12: Magnesium 2.8 H, Triglycerides 97, Cholesterol 132, LDL Cholesterol 74, VLDL Cholesterol 19, HDL Cholesterol 39 L Radiography Diagnostic Testing: Radiology Impression Echocardiogram 01/13/24 14:58 Interpretation Summary There is a moderate sized posterior and lateral wall motion abnormality with hypokinesis of the segments. The left ventricular ejection fraction is 45-50 %. Diastolic function is indeterminate. Moderately dilated left ventricle. Mild concentric left ventricular hypertrophy. Moderately severe (3+) posteriorly directed mitral valve insufficiency. Mild-Moderate (1-2+) aortic valve insufficiency. Severe aortic stenosis. Mean peak gradient 50 mmHg Ordering Physician: Kian Calvert Performed By: Vanessa Kamara JACKIE Rhythm Strip Rhythm Strip: Sinus Rhythm Rate: 100 Physical Exam Narrative Seen and examined. Patient had chest discomfort/pain and shortness of breath on Versed and transferred to ICU. Denied any new melena. Denies abdominal pain. Recently was discharged 2 times after admission for GI bleed Physical exam General: Alert, Oriented x3, Cooperative HEENT: Atraumatic, PERRLA, EOMI, Normocephalic Oral: No Gingival or Mucosal Lesions/ Ulcerations Neck: Supple, No JVD, Negative Carotid Bruits Chest wall/Lungs: Air entry diminished in bilateral lung bases. No crepitation/rhonchi Cardiovascular: Sinus rhythm, normal S1, Normal S2, systolic murmur over right second ICS with radiation to carotids, grade 4/6 bicuspid aortic valve, moderate aortic stenosis. Right subclavian artery aneurysm surgery Abdomen: Bowel Sounds Present, Soft, Non Tender, Non-Distended : No dysuria. No renal angle tenderness. No suprapubic tenderness. Extremities: Bilateral lower extremity lymphedema, Capillary Refill Less than 3 Seconds Skin: No rashes, No breakdown Musculoskeletal: No Tenderness to Palpation of Joints or Extremities Neurological: Cranial nerves II-XII grossly intact, DTR 2+/4. No acute focal neurological deficit. Psych/Mental Status: Normal Affect, Appropriate. Assessment & Plan Assessment/Plan (1) Acute on chronic anemia: (2) UGIB (upper gastrointestinal bleed): (3) Hypokalemia: (4) End stage renal disease on dialysis: PLAN: Plan 68-year-old gentleman came to ED with black tarry stool on past Thursday on 01/09/2023. His hemoglobin typically is around 11 g. He has multiple recent admissions for GI bleed and follows Dr. Ross. Patient had chest discomfort and shortness of breath on 01/13/2024 night and transferred to ICU 1. Acute on chronic anemia -EGD on 12/15/2023 that showed normal esophagus, small hiatal hernia, oozing duodenal ulcers that were injected and treated with heater probe as well as a nonbleeding duodenal ulcer -Readmitted on 12/24/2023 and an EGD was done at that time and showed normal esophagus, mild Schatzki's ring, a single bleeding angiodysplastic lesion in the stomach which was treated with heater probe and an oozing duodenal ulcer that had pigmented material treated with heater probe -Continue Protonix -Colonoscopy was unremarkable -Protonix 40 mg BID IVP -Continue home Carafate -Patient saw Dr. Ross recently and he told him is okay to restart his aspirin and heparin with dialysis -N.p.o. at midnight with clear liquids for now -Consult gastroenterology for probable EGD tomorrow -Has chronic anemia secondary to chronic renal disease. Probably need to hold baby aspirin and heparin for 3 months. 2. Hypokalemia -Potassium 3.2 on admission -40 mEq given Repeat BMP shows potassium 4.2. Bicarb 35 anion gap 7. 3. Acute on chronic systolic and diastolic heart failure due to fluid overload: Patient had shortness of breath and chest discomfort due to fluid overload: Patient symptoms got better on sitting upright and dialysis. Troponin was elevated 115. EKG does not show acute ischemic changes. Patient was evaluated by foreign exchange student coordinator. According to Dr. Palomo, mean aortic valve gradient 50 mmHg looks worse because patient was anemic therefore may have falsely elevated grad ients. Getting hemodialysis. 4. Moderate aortic stenosis, mild AI due to bicuspid aortic valve, history of right subclavian aneurysm repair with graft by , [facility] several years ago: Patient had echo on November 23, 2019 which shows bicuspid aortic valve, mean AV gradient 29 mmHg, calculated aortic valve area 1.2 cm squire, mild AI. Moderate concentric LVH, EF 65%, stage I diastolic function. 01/13: Patient got chest pressure/pressure and shortness of breath last night and was moved to ICU. Echo was done yesterday which shows moderately dilated LV, mild concentric LVH EF 45%. LA moderately enlarged. Moderately severe 3+ posteriorly directed MR. Aortic valve reported severe with mild to moderate AI. Aortic valve area 1.21 cm?. Mean AV peak gradient reported 50 mmHg. Generalized weakness -Weak again with darkening of stools -Will have PT and OT see him and see if he may qualify for outpatient therapy or home health -Consult case management/social work consultation to assist with discharge planning 5. End-stage renal disease on HD -Has dialysis Thursday//Thursday -Follows with Dr. Russo--> nephrology consulted. -Continue home phosphate binder -Continue home nephro vitamin CAD/hypertension -Continue home amlodipine -Continue home carvedilol 6.25 mg grams twice daily -Hold aspirin indefinitely Peptic ulcer disease -Continue Carafate and Protonix however Protonix will be IV for now -Outpatient GI follow-up after discharge History of migraines -Patient's not in any chronic medication -As needed Tylenol available History of subclavian aneurysm -Status postrepair History of rheumatoid arthritis/vasculitis -Patient is not on any chronic medication for this -Continue outpatient follow-up Tobacco abuse -Recommend cessation -Nicotine patch if patient desires DVT prophylaxis -SCDs for now given recent GI bleed CODE STATUS -Full code is verified on admission Clinical Impression(s) from Imaging Studies Echocardiogram 01/13/24 14:58 Interpretation Summary There is a moderate sized posterior and lateral wall motion abnormality with hypokinesis of the segments. The left ventricular ejection fraction is 45-50 %. Diastolic function is indeterminate. Moderately dilated left ventricle. Mild concentric left ventricular hypertrophy. Moderately severe (3+) posteriorly directed mitral valve insufficiency. Mild-Moderate (1-2+) aortic valve insufficiency. Severe aortic stenosis. Mean peak gradient 50 mmHg Charges/Coding Addendum Addendum: Total time of the visit including total time spent in counseling or coordination of care, (more than 50% of the total time, spent in obtaining medical information from nurses and other ancillary care providers,explaining to the patient about labs, imaging, diagnosis and management of active complex medical conditions), discussion with foreign exchange student coordinator, up gradation of the level of care from MedSurg to ICU for acute on chronic combined heart failure, review of labs and imaging is 40 minutes. Visit Charges Inpatient E&M: 71834 [facility] Hosp L3
[2024-01-14 11:40] LABS: Hematocrit 28.1 % (40-54); Hemoglobin 8.7 g/dL (13.0-16.5); Mean Corpuscular Hgb 29.8 pg (27.0-32.0); Mean Corpuscular Volume 96.2 fL (80-94); Platelet Count 199 K/mm3 (150-450); RBC Distribution Width CV 17.4 % (11.6-14.6); Red Blood Count 2.92 M/mm3 (4.6-6.2); White Blood Count 7.2 K/mm3 (4.4-11.0)
[2024-01-14] MEDS: Pantoprazole Sodium 40 MG in 0.9% Normal Saline (100mL MB+) 100 ML 330 MG IV (11:41)
[2024-01-14] MEDS: Carvedilol 6.25 MG Tablet PO (11:42)
[2024-01-14] MEDS: Sucralfate 1 GM Tablet PO (11:43)
[2024-01-14] MEDS: Folic Acid/Vitamin B Comp W-C 1 Capsule 1 CAP PO (11:44)
[2024-01-14] MEDS: Calcium Acetate 667 MG Capsule 2668 MG PO (11:45)
--- NOTE | 2024-01-14 13:30 | PCM.DC ---
Discharge Instructions Diet Discharge Diet: Low fat / Low cholesterol and 2000 mg Sodium Diet Activity Discharge Activity: Return to Normal Activity Weight Bearing Status: Weight bearing as tolerated Dressing / Incision Call your doctor if you observe: Fever of 101 or Higher, Coldness, Increased Pain, Numbness or Tingling, Change in Color, Inability to urinate, Inability to have a bowel movement, Shortness of breath, Dizziness, Fainting spells, Swelling in the ankles, Chest pain, Prolonged hiccupping, Increased palpitations (irregular heartbeat) and Calf discomfort Follow Up Care When: IN 2 WEEKS Test Results: Test results from this visit will be discussed in further detail at your follow-up appointment, if applicable. Discharge Plan Admission Admit Date/Time: 01/12/24 17:04 Primary Reason for Your Visit: Upper GI bleed. Attending Provider: Kian Calvert Primary Care Provider: Bekah Washington Consulting Providers: Ofelia Walls; Aric Palomo; Hanh Russo Discharge Orders/Prescriptions Prescriptions: New sennosides-docusate sodium [Stool Softener-Stimulant Laxat] 8.6-50 mg Tablet 2 tab PO BID PRN PRN (Reason: Constipation) Qty: 0 0RF Continued amlodipine 5 mg tablet 5 mg PO BID acetaminophen 500 MG tablet 500 mg PO DAILY calcium acetate(phosphat bind) 667 mg capsule 2,668 mg PO TID Rx Instructions: TAKE 4 CAPSULES BY MOUTH THREE TIMES DAILY WITH MEALS. carvedilol 6.25 mg tablet 6.25 mg PO BID Nephro-Christiano 0.8 mg tablet 1 tab PO DAILY Rx Instructions: TAKE 1 TABLET BY MOUTH EVERY DAY (ON DIALYSIS DAYS, TAKE AFTER DIALYSIS TREATMENT) cyanocobalamin (vitamin B-12) [Vitamin B-12] 1,000 mcg tablet 1,000 mcg PO DAILY sucralfate 1 gram tablet 1 g PO BID 90 Days Qty: 180 0RF Changed pantoprazole 40 mg tablet,delayed release (DR/EC) 40 mg PO BIDCM 90 Days Qty: 90 1RF Referrals / Follow Up: Hanh Russo MD [Med Staff - Consulting] - Within 2 Weeks (Correction of anemia, goal hemoglobin 10 g%.) Aric Palomo MD [Med Staff - Active Staff] - Within 1 Month Bekah Washington MD [Primary Care Provider] - FriendCade DO [Med Staff - Active Staff] - Within 1 Month (For duodenal ulcer.) Disposition Disposition (needs filled in before D/C Order can be placed): Home, Self Care
--- NOTE | 2024-01-14 13:42 | PCM.DC.SUM ---
Providers Date of Admission: 01/12/24 Date of Discharge: 01/14/24 Primary Care Physician: Dr. Bekah Washington MD Consultations 01/12/24 18:22 Consult: Gastroenterology Routine Consulting Provider: [facility] Reason for Consult: GIB EMERGENT Consult: No Notified: Yes Date Notified: 01/12/24 Time Notified: 17:05 Method of Notification: ED Physician Initiated 01/13/24 09:23 Consult: Nephrology Routine Consulting Provider: Hanh Russo Reason for Consult: ESRD on HD, admitted for GI Bleed EMERGENT Consult: No Notified: Yes Date Notified: 01/13/24 Time Notified: 09:23 Method of Notification: Text 01/14/24 05:41 Consult: Cardiology Routine Consulting Provider: Aric Palomo Reason for Consult: Chest pain, elevated trop, admit w/ GI bleed EMERGENT Consult: No Notified: Yes Date Notified: 01/14/24 Time Notified: 05:41 Method of Notification: Text Reason For Visit: UGIB Diagnosis Discharge Diagnosis (1) Acute on chronic anemia: Status: Chronic Code(s): D64.9 - Anemia, unspecified (2) UGIB (upper gastrointestinal bleed): Status: Acute Code(s): K92.2 - Gastrointestinal hemorrhage, unspecified (3) Hypokalemia: Status: Acute Code(s): E87.6 - Hypokalemia (4) End stage renal disease on dialysis: Status: Acute Code(s): N18.6 - End stage renal disease; Z99.2 - Dependence on renal dialysis Plan 68-year-old gentleman came to ED with black tarry stool on past Thursday on 01/09/2023. His hemoglobin typically is around 11 g. He has multiple recent admissions for GI bleed and follows Dr. Ross. Patient had chest discomfort and shortness of breath on 01/13/2024 night and transferred to ICU 1. Acute on chronic anemia from multiple reasons including upper GI bleed, chronic kidney disease/ESRD: -Readmitted on 12/24/2023 and an EGD was done at that time and showed normal esophagus, mild Schatzki's ring, a single bleeding angiodysplastic lesion in the stomach which was treated with heater probe and an oozing duodenal ulcer that had pigmented material treated with heater probe -Continue Protonix -Colonoscopy was unremarkable -Protonix 40 mg BID IVP -Continue home Carafate -Patient saw Dr. Ross recently and he told him is okay to restart his aspirin and heparin with dialysis -N.p.o. at midnight with clear liquids for now -Has chronic anemia secondary to chronic renal disease. Probably need to hold baby aspirin and heparin for 3 months. 01/13: Patient had EGD on 01/13/2024 that showed normal esophagus, small hiatal hernia, oozing duodenal ulcers that were injected and treated with heater probe as well as a nonbleeding duodenal ulcer. Hemoglobin 8.7 after 1 unit of transfusion. 2. Hypokalemia -Potassium 3.2 on admission -40 mEq given Repeat BMP shows potassium 4.2. Bicarb 35 anion gap 7. 3. 01/13: Acute on chronic systolic and diastolic heart failure due to fluid overload: Patient had shortness of breath and chest discomfort due to fluid overload: Patient symptoms got better on sitting upright and dialysis. Troponin was elevated 115. EKG does not show acute ischemic changes. Patient was evaluated by share holder. According to Dr. Palomo, mean aortic valve gradient 50 mmHg looks worse because patient was anemic therefore may have falsely elevated gradients. Getting hemodialysis. Patient symptoms got much better and improved after dialysis. 4. Moderate aortic stenosis, mild AI due to bicuspid aortic valve, history of right subclavian aneurysm repair with graft by , [facility] several years ago: Patient had echo on November 23, 2019 which shows bicuspid aortic valve, mean AV gradient 29 mmHg, calculated aortic valve area 1.2 cm squire, mild AI. Moderate concentric LVH, EF 65%, stage I diastolic function. 01/13: Patient got chest pressure/pressure and shortness of breath last night and was moved to ICU. Echo was done yesterday which shows moderately dilated LV, mild concentric LVH EF 45%. LA moderately enlarged. Moderately severe 3+ posteriorly directed MR. Aortic valve reported severe with mild to moderate AI. Aortic valve area 1.21 cm?. Mean AV peak gradient reported 50 mmHg. Generalized weakness -Weak again with darkening of stools -Will have PT and OT see him and see if he may qualify for outpatient therapy or home health -Consult case management/social work consultation to assist with discharge planning 5. End-stage renal disease on HD -Has dialysis Thursday//Thursday -Follows with Dr. Russo--> nephrology consulted. -Continue home phosphate binder -Continue home nephro vitamin CAD/hypertension -Continue home amlodipine -Continue home carvedilol 6.25 mg grams twice daily -Hold aspirin indefinitely Peptic ulcer disease -Continue Carafate and Protonix however Protonix will be IV for now -Outpatient GI follow-up after discharge History of migraines -Patient's not in any chronic medication -As needed Tylenol available History of subclavian aneurysm -Status postrepair History of rheumatoid arthritis/vasculitis -Patient is not on any chronic medication for this -Continue outpatient follow-up Tobacco abuse -Recommend cessation -Nicotine patch if patient desires DVT prophylaxis -SCDs for now given recent GI bleed CODE STATUS -Full code is verified on admission Patient given prescription for pantoprazole 40 mg twice daily at least for 2 months. Follow-up cardiology in 1 month. Goal hemoglobin to be 10 g for 30 days to follow with Dr. Russo, [employer] party for Procrit/erythropoietin injection. Once hemoglobin is 10 g will need repeat echo as increased gradient of AV valve is related to be falsely elevated due to severe anemia. Clinical Impression(s) from Imaging Studies Echocardiogram 01/13/24 14:58 Interpretation Summary There is a moderate sized posterior and lateral wall motion abnormality with hypokinesis of the segments. The left ventricular ejection fraction is 45-50 %. Diastolic function is indeterminate. Moderately dilated left ventricle. Mild concentric left ventricular hypertrophy. Moderately severe (3+) posteriorly directed mitral valve insufficiency. Mild-Moderate (1-2+) aortic valve insufficiency. Severe aortic stenosis. Mean peak gradient 50 mmHg Medications at Discharge Home Medications acetaminophen 500 mg tablet 500 mg PO DAILY PAIN 11/21/19 amlodipine 5 mg tablet 5 mg PO BID BLOOD PRESSURE 08/24/23 calcium acetate(phosphat bind) 667 mg capsule 2,668 mg PO TID PHOSPHATE LEVELS 12/12/23 carvedilol 6.25 mg tablet 6.25 mg PO BID HEART 12/12/23 vitamin B complex-vitamin C-folic acid 0.8 mg tablet (Nephro-Christiano) 1 tab PO DAILY RENAL HEALTH 12/12/23 sucralfate 1 gram tablet 1 g PO BID ULCER TREATMENT/PREVENTION 90 days #180 tabs 12/28/23 cyanocobalamin (vitamin B-12) 1,000 mcg tablet (Vitamin B-12) 1,000 mcg PO DAILY supplement 01/12/24 pantoprazole 40 mg tablet,delayed release 40 mg PO BIDCM REFLUX 90 days #90 tabs 01/14/24 sennosides 8.6 mg-docusate sodium 50 mg tablet (Stool Softener-Stimulant Laxative) 2 tab PO BID PRN PRN Constipation #0 tabs 01/14/24 Physical Exam Narrative Seen and examined. Please see exam finding on the progress note of the same date. Patient comfortable after dialysis. Lungs clear. Chronic bilateral lymphedema. Weight / BMI Weight Weight: 199 lb 4.766 oz Body Mass Index (BMI) 27.8 ABG / Lab / Microbiology Data 01/14/24 11:40 01/14/24 05:03 Laboratory: Laboratory Results - last 24 hr 01/12/24 14:30: Crossmatch See Detail 01/13/24 15:36: Hgb 7.5 L, Hct 25.0 L 01/14/24 05:03: WBC 6.4, RBC 2.78 L, Hgb 8.5 L, Hct 27.2 L, MCV 97.8 H, MCH 30.6, MCHC 31.3 L, RDW Std Deviation 62.9 H, RDW Coeff of Brynn 17.8 H, Plt Count 192, MPV 10.9, Immature Gran % (Auto) 0.300, Neut % (Auto) 72.7 H, Lymph % (Auto) 12.1 L, [place] % (Auto) 12.6 H, Eos % (Auto) 1.7, Baso % (Auto) 0.6, Absolute Neuts (auto) 4.7, Absolute Lymphs (auto) 0.78 L, Nucleated RBC % 0, Sodium 137, Potassium 4.7, Chloride 96 L, Carbon Dioxide 30.0, Anion Gap 11, BUN 62 H, Creatinine 7.34 H, Estim Creat Clear Calc 11.27, Est GFR (MDRD) Af Amer 10 L, Est GFR (MDRD) Non-Af 8 L, BUN/Creatinine Ratio 8.4 L, Glucose 110 H, Calcium 8.9, Troponin I High Sens 115 H 01/14/24 05:12: Magnesium 2.8 H, Triglycerides 97, Cholesterol 132, LDL Cholesterol 74, VLDL Cholesterol 19, HDL Cholesterol 39 L 01/14/24 11:40: WBC 7.2, RBC 2.92 L, Hgb 8.7 L, Hct 28.1 L, MCV 96.2 H, MCH 29.8, MCHC 31.0 L, RDW Std Deviation 61.0 H, RDW Coeff of Brynn 17.4 H, Plt Count 199, MPV 11.0 Radiography Diagnostic Testing: Radiology Impression Echocardiogram 01/13/24 14:58 Interpretation Summary There is a moderate sized posterior and lateral wall motion abnormality with hypokinesis of the segments. The left ventricular ejection fraction is 45-50 %. Diastolic function is indeterminate. Moderately dilated left ventricle. Mild concentric left ventricular hypertrophy. Moderately severe (3+) posteriorly directed mitral valve insufficiency. Mild-Moderate (1-2+) aortic valve insufficiency. Severe aortic stenosis. Mean peak gradient 50 mmHg Ordering Physician: Kian Calvert Performed By: Vanessa Kamara RDCS D/C Instructions Discharge Diet: Low fat / Low cholesterol and 2000 mg Sodium Diet Weight Bearing Status: Weight bearing as tolerated Call your doctor if you observe: Fever of 101 or Higher, Coldness, Increased Pain, Numbness or Tingling, Change in Color, Inability to urinate, Inability to have a bowel movement, Shortness of breath, Dizziness, Fainting spells, Swelling in the ankles, Chest pain, Prolonged hiccupping, Increased palpitations (irregular heartbeat) and Calf discomfort When: IN 2 WEEKS Meaningful Use Info Meaningful Use Diagnoses (Choose all that apply): None applicable and CHF CHF CHELA/ARB ordered at discharge?: No Reason CHELA/ARB not ordered?: Not indicated and Worsening renal disease Documented LVEF (%): 45 Discharge Plan Admission Admit Date/Time: 01/12/24 17:04 Primary Reason for Your Visit: Upper GI bleed. Attending Provider: Kian Calvert Primary Care Provider: Bekah Washington Consulting Providers: Ofelia Walls; Aric Palomo; Hanh Russo Discharge Orders/Prescriptions Prescriptions: New sennosides-docusate sodium [Stool Softener-Stimulant Laxat] 8.6-50 mg Tablet 2 tab PO BID PRN PRN (Reason: Constipation) Qty: 0 0RF Continued amlodipine 5 mg tablet 5 mg PO BID acetaminophen 500 MG tablet 500 mg PO DAILY calcium acetate(phosphat bind) 667 mg capsule 2,668 mg PO TID Rx Instructions: TAKE 4 CAPSULES BY MOUTH THREE TIMES DAILY WITH MEALS. carvedilol 6.25 mg tablet 6.25 mg PO BID Nephro-Christiano 0.8 mg tablet 1 tab PO DAILY Rx Instructions: TAKE 1 TABLET BY MOUTH EVERY DAY (ON DIALYSIS DAYS, TAKE AFTER DIALYSIS TREATMENT) cyanocobalamin (vitamin B-12) [Vitamin B-12] 1,000 mcg tablet 1,000 mcg PO DAILY sucralfate 1 gram tablet 1 g PO BID 90 Days Qty: 180 0RF Changed pantoprazole 40 mg tablet,delayed release (DR/EC) 40 mg PO BIDCM 90 Days Qty: 90 1RF Referrals / Follow Up: Hanh Russo MD [Med Staff - Consulting] - Within 2 Weeks (Correction of anemia, goal hemoglobin 10 g%.) Aric Palomo MD [Med Staff - Active Staff] - Within 1 Month Bekah Washington MD [Primary Care Provider] - Cade Ross DO [Med Staff - Active Staff] - Within 1 Month (For duodenal ulcer.) Disposition Disposition (needs filled in before D/C Order can be placed): Home, Self Care Charges/Coding Visit Charges Inpatient E&M: 71929 Disch Hosp >30min
--- NOTE | 2024-01-14 14:13 | CASEMGMT ---
RN CM to pt room at this time regarding DC. Pt states that he feels safe and comfortable going home today. Pt states that he has an Rx for OP therapy and will most likely utilize the script through [facility]. Pt states that the transport corps officer is recommending the pt to keep an eye on his Hgb levels after DC from [facility]. Per the pt DC instructions, the pt is to f/u with his PCP, Dr. Palomo, Dr. Ross, and Dr. Russo. Pt educated to call and schedule appts as soon as possible to follow up on the pt Hgb count per the PCP. Pt states understanding and declines further needs at this time regarding DC. Pt at bedside and to transport pt home.
--- NOTE | 2024-01-14 19:24 | PN.RENAL_ITS ---
Subjective Subjective no new events Objective Data Objective Data Vital Signs: Vital Signs Temp Pulse Resp BP Pulse Ox O2 Del Method O2 Flow Rate 98.1 F 83 17 140/91 H 100 Room Air 2 01/14/24 12:00 01/14/24 12:00 01/14/24 12:00 01/14/24 12:00 01/14/24 12:00 01/14/24 12:00 01/14/24 10:58 Oxygen Flow Rate (L/min) 2 Oxygen Delivery Method Room Air Weight: 90.4 kg Body Mass Index (BMI) 27.8 Intake & Output: Intake and Output for Last 24 Hours 01/12/24 01/13/24 01/14/24 23:59 23:59 23:59 Intake Total 110 / 110 621 / 621 360 / 360 Output Total 7200 / 7200 Balance 110 / 110 621 / 621 -6840 / -6840 Lab / Micro Data 01/14/24 11:40 01/14/24 05:03 Labs: Laboratory Results - last 24 hr 01/12/24 14:30: Crossmatch See Detail 01/14/24 05:03: WBC 6.4, RBC 2.78 L, Hgb 8.5 L, Hct 27.2 L, MCV 97.8 H, MCH 30.6, MCHC 31.3 L, RDW Std Deviation 62.9 H, RDW Coeff of Brynn 17.8 H, Plt Count 192, MPV 10.9, Immature Gran % (Auto) 0.300, Neut % (Auto) 72.7 H, Lymph % (Auto) 12.1 L, [place] % (Auto) 12.6 H, Eos % (Auto) 1.7, Baso % (Auto) 0.6, Absolute Neuts (auto) 4.7, Absolute Lymphs (auto) 0.78 L, Nucleated RBC % 0, Sodium 137, Potassium 4.7, Chloride 96 L, Carbon Dioxide 30.0, Anion Gap 11, BUN 62 H, Creatinine 7.34 H, Estim Creat Clear Calc 11.27, Est GFR (MDRD) Af Amer 10 L, Est GFR (MDRD) Non-Af 8 L, BUN/Creatinine Ratio 8.4 L, Glucose 110 H, Calcium 8.9, Troponin I High Sens 115 H 01/14/24 05:12: Magnesium 2.8 H, Triglycerides 97, Cholesterol 132, LDL Cholesterol 74, VLDL Cholesterol 19, HDL Cholesterol 39 L 01/14/24 11:40: WBC 7.2, RBC 2.92 L, Hgb 8.7 L, Hct 28.1 L, MCV 96.2 H, MCH 29.8, MCHC 31.0 L, RDW Std Deviation 61.0 H, RDW Coeff of Brynn 17.4 H, Plt Count 199, MPV 11.0 Rhythm Strip Rhythm Strip: Sinus Rhythm Rate: 100 Physical Exam Narrative Alert awake oriented x 3 no obvious distress no pallor no icterus no JVD s1s2 no murmurs lungs clear abdomen soft no organomegaly no edema no cyanosis Assessment & Plan Assessment/Plan (1) End stage renal disease on dialysis: PLAN: On hemodialysis. Thursday, , Thursday schedule. HD today. looks better Anemia. With low iron. Has been getting IV iron with dialysis. Ongoing GI bleed. Transfuse if hemoglobin is less than 7. s/p EGD dc today will check HB at dialysis
== END 2024-01-14 14:55 | disposition home or self-care (01) | DRG 377 ==
LOC: ED 17:11 → MS3 17:18 → ICU 01-14 07:05
PROVIDERS: Family Medicine; Internal Medicine Gastroenterology; Admitting Provider Internal Medicine; Emergency Provider Emergency Medicine; PCP Internal Medicine; Visit Provider Internal Medicine
PROC: 0DJ08ZZ Inspection of Upper Intestinal Tract, Via Natural or Artificial Opening Endoscopic (ICD-10-PCS; CPT 43235; principal; 2024-01-13 08:25)
DX: K26.4 Chronic or unspecified duodenal ulcer with hemorrhage (principal); N18.6 End stage renal disease; I50.43 Acute on chronic combined systolic (congestive) and diastolic (congestive) heart failure; Q23.1 Congenital insufficiency of aortic valve; I13.2 Hypertensive heart and chronic kidney disease with heart failure and with stage 5 chronic kidney disease, or end stage renal disease; D63.1 Anemia in chronic kidney disease; Z99.2 Dependence on renal dialysis; D50.0 Iron deficiency anemia secondary to blood loss (chronic); K44.9 Diaphragmatic hernia without obstruction or gangrene; E87.6 Hypokalemia; F17.210 Nicotine dependence, cigarettes, uncomplicated; I25.10 Atherosclerotic heart disease of native coronary artery without angina pectoris; Z79.82 Long term (current) use of aspirin; Z79.899 Other long term (current) drug therapy; Z86.79 Personal history of other diseases of the circulatory system
CPT/HCPCS: 36415; 80048; 80053; 80061; 83735; 84484; 85014; 85018; 85025; 85027; 85610; 85730; 86850; 86900; 86901; 86920; 88305; 90937; 93005; 93306; 97802; 99284; J7030; J7040; P9016; G0257; J2405

== ENCOUNTER → 2024-01-12 | Outpatient (CLI) | payer MEDICARE, BC, SELFPAY | END | disposition home or self-care (01) | LOC: LABSPEC 10:10 | PROVIDERS: PCP Internal Medicine; Referring Provider Internal Medicine Nephrology; Visit Provider Internal Medicine Nephrology | DX: Z00.00 Encounter for general adult medical examination without abnormal findings (principal) | CPT/HCPCS: 85018 ==

== ENCOUNTER 2024-01-21 14:09 | Emergency (ER) | payer MEDICARE, BC, SELFPAY ==
[2024-01-21 14:11] VITALS: BP 122/84; PULSE 81; RESP 16; TEMP 36.3; O2SAT 98
[2024-01-21 15:14] VITALS: BMI 29.3
--- NOTE | 2024-01-21 15:48 | EX.ED.DYSGE1 ---
HPI History of Present Illness Chief Complaint: GI Bleed [facility] Medical History Acute on chronic anemia Acute upper GI bleed Bursitis Cardiac disease Chronic anemia Dialysis patient DVT (deep venous thrombosis) Generalized weakness Hepatitis History of end stage renal disease History of renal dialysis Kidney disease Kidney failure due to vascular disorder Migraines Non-smoker Problem with dialysis access Rectal bleeding Rheumatoid aortitis Rheumatoid vasculitis Secondary hyperparathyroidism Smoker Subclavian aneurysm Home Medications acetaminophen 500 mg tablet 500 mg PO DAILY PAIN 11/21/19 [History Last Taken 12/12/23] amlodipine 5 mg tablet 5 mg PO BID BLOOD PRESSURE 08/24/23 [History Last Taken 12/24/23] calcium acetate(phosphat bind) 667 mg capsule 2,668 mg PO TID PHOSPHATE LEVELS 12/12/23 [History Last Taken 12/23/23] carvedilol 6.25 mg tablet 6.25 mg PO BID HEART 12/12/23 [History Last Taken 12/24/23] vitamin B complex-vitamin C-folic acid 0.8 mg tablet (Nephro-Christiano) 1 tab PO DAILY RENAL HEALTH 12/12/23 [History Last Taken 12/23/23] sucralfate 1 gram tablet 1 g PO BID ULCER TREATMENT/PREVENTION 90 days #180 tabs 12/28/23 [Rx Last Taken Unknown] cyanocobalamin (vitamin B-12) 1,000 mcg tablet (Vitamin B-12) 1,000 mcg PO DAILY supplement 01/12/24 [History Last Taken Unknown] pantoprazole 40 mg tablet,delayed release 40 mg PO BIDCM REFLUX 90 days #90 tabs 01/14/24 [Rx Last Taken Unknown] sennosides 8.6 mg-docusate sodium 50 mg tablet (Stool Softener-Stimulant Laxative) 2 tab PO BID PRN PRN Constipation #0 tabs 01/14/24 [Rx Last Taken Unknown] Allergy/AdvReac Type Severity Reaction Status Date / Time No Known Allergies Allergy Verified 01/21/24 14:10 Family History Other Cancer Diabetes Heart disease Surgical History History of bicuspid aortic valve History of umbilical hernia Hx of arteriovenostomy for renal dialysis (~12/2019) S/P knee surgery s/p subclavian graft Status post insertion of dialysis catheter (~11/2019) Social History household members: spouse housing: house Smoking Status: Current every day smoker tobacco type: cigarettes alcohol intake: never substance use type: does not use EXAM Physical Exam Const Vital Signs: 01/21/24 14:11 01/21/24 16:09 01/21/24 16:21 Temperature 97.3 F L Temperature Source Temporal Pulse Rate 81 83 84 Respiratory Rate 16 13 13 Blood Pressure 122/84 H 137/80 H 137/80 H Blood Pressure Mean 96 99 99 Pulse Ox 98 98 97 Oxygen Delivery Method Room Air Room Air Room Air 01/21/24 18:00 01/21/24 19:16 Temperature 97.2 F L Temperature Source Pulse Rate 91 68 Respiratory Rate 20 H 16 Blood Pressure 128/76 H 123/78 H Blood Pressure Mean 93 93 Pulse Ox 100 96 Oxygen Delivery Method Room Air [facility] [place] Narrative Medical decision making narrative: HISTORY OF PRESENT ILLNESS: 68-year-old male presents with concern fo rNo recent ED visits, dark stools. Notes his hemoglobin is 8.1 this mornin. Notes he completed dialysis prior to coming in. REVIEW OF SYSTEMS: Pertinent positives: Dark stools Pertinent negatives: Lightheaded, chest pain, palpitations, shortness of breath, syncope PHYSICAL EXAM: Nursing triage notes reviewed, Vital signs reviewed Constitutional: please see mdm HENT: MMM Eyes: Pupils equal round and reactive to light, Extraocular muscles intact Neck: No stridor, no JVD, full neck ROM Lungs: Clear to auscultation, No wheezing or rales. No increased work of breathing, no conversational dyspnea, no accessory muscle use, no nasal flaring. No respiratory distress noted Heart: Regular rate and rhythm, No murmurs, No rubs and No gallops, 2+ distal pulses (radial, femoral, posterior tibial) in all extremities Abdomen: Soft, there is no tenderness, rigidity, rebound or guarding, no obvious peritoneal signs, no palpable pulsatile abdominal masses, no auscultated abdominal bruit : No CVAT Extremities: No edema Rectal: Performed with nurse at [facility] RN as a registration representative shows no obvious bleeding stool is brown Neuro: No focal neurological deficits, cranial nerves II through XII intact, 5/5 strength in all extremities. Intact sensation to light touch in all extremities, 2+ reflexes bilateral patella tendons. Normal gait. No ataxia. Skin: No rash or lesions noted, no pallor noted MEDICAL DECISION MAKING: Chief Complaint: Dark stools External records reviewed: This upper GI from 01/13/2024 shows normal esophagus, small hiatal hernia, oozing duodenal ulcer with visible vessel Factors affecting care: DVT, chronic anemia, migraines, ESRD no blood thinners Social determinants of health: none History obtained from others: Patient's Consults: Gastroenterology (Dr. Ross) MDM Narrative: Patient was hemodynamically stable, afebrile and nontoxic-appearing. I considered the following differential diagnosis: Upper/lower GI bleed, significant anemia ALL IMAGES (IF OBTAINED) HAVE BEEN PERSONALLY REVIEWED AND INTERPRETED BY MYSELF. Occult stool sample positive CBC with no leukocytosis, improved anemia from prior study, no thrombocytopenia BMP with ESRD LFTs show no evidence of hepatobiliary pathology. Discussed the case with the GI doctor Dr. oRss. Dr. Ross recommended discharge. Recommended close PCP follow-up to assess titration of blood thinner given recent scope only 8 days ago did not reveal any obvious source of bleeding. Dr. Ross did not think the patient benefit from hospitalization I agree. He is hemodynamically stable with uptrending hemoglobin. He is appropriate discharge home The patient and/or family, caregivers express understanding. The patient and/or family, caregivers agrees with the plan. Shared decision making: I will have a discussion with the patient and or visitors regarding risk/benefits of further testing or admission. They will be made aware of of the risk/benefits inherent in this decision they will be given the opportunity to voice understanding. Total critical care time today provided was at least 0 minutes. This excludes separately billable procedures. Critical care time (if documented) is secondary to the patient having high probability of clinically significant/life threatening deterioration in the patient's condition which required my urgent intervention. Impression: 1. GI bleed 2. History of anticoagulation 3. History of ESRD Dispo: Discharge home This note was generated with [employer] dictation software. It may contain incorrect words, spelling, and punctuation that were not noted in review of the chart prior to signing. Lab Data Labs: Laboratory Results - last 24 hr 01/21/24 16:12 WBC 7.0 RBC 2.91 L Hgb 8.6 L Hct 28.1 L MCV 96.6 H MCH 29.6 MCHC 30.6 L RDW Std Deviation 56.8 H RDW Coeff of Brynn 16.1 H Plt Count 246 MPV 10.8 Sodium 137 Potassium 3.6 Chloride 94 L Carbon Dioxide 37.0 H Anion Gap 6 BUN 26 H Creatinine 4.16 H Estim Creat Clear Calc 19.47 Est GFR (MDRD) Af Amer 18 L Est GFR (MDRD) Non-Af 15 L BUN/Creatinine Ratio 6.2 L Glucose 106 Calcium 8.6 Total Bilirubin 0.30 AST 15 ALT 11 L Alkaline Phosphatase 61 Total Protein 7.1 Albumin 3.3 Globulin 3.8 Albumin/Globulin Ratio 0.9 Blood Type A POSITIVE Antibody Screen NEGATIVE Discharge Plan Triage Chief Complaint: GI Bleed ED Provider: Wiley Fraire Dx/Rx/DC Orders Clinical Impression: Rectal bleeding Instructions: GI Bleeding Causes and Tests Prescriptions: No Action amlodipine 5 mg tablet 5 mg PO BID acetaminophen 500 MG tablet 500 mg PO DAILY calcium acetate(phosphat bind) 667 mg capsule 2,668 mg PO TID Rx Instructions: TAKE 4 CAPSULES BY MOUTH THREE TIMES DAILY WITH MEALS. carvedilol 6.25 mg tablet 6.25 mg PO BID Nephro-Christiano 0.8 mg tablet 1 tab PO DAILY Rx Instructions: TAKE 1 TABLET BY MOUTH EVERY DAY (ON DIALYSIS DAYS, TAKE AFTER DIALYSIS TREATMENT) cyanocobalamin (vitamin B-12) [Vitamin B-12] 1,000 mcg tablet 1,000 mcg PO DAILY sennosides-docusate sodium [Stool Softener-Stimulant Laxat] 8.6-50 mg Tablet 2 tab PO BID PRN PRN (Reason: Constipation) Qty: 0 0RF pantoprazole 40 mg tablet,delayed release (DR/EC) 40 mg PO BIDCM 90 Days Qty: 90 1RF sucralfate 1 gram tablet 1 g PO BID 90 Days Qty: 180 0RF Primary Care Provider: Bekah Washington Referrals: Bekah Washington MD [Primary Care Provider] - Activity Restrictions/Additional Instructions: Thank you for trusting us with your care today! Please take Tylenol (2 pills, 650 mg) every 6 hours as needed for pain and fever control. Please return to the emergency department if your symptoms change or worsen. Specifically develop lightheadedness, dizziness, chest pain, if you develop heavy bleeding or large volume dark stools. Please follow with your Gastroenterology (Dr. Ross) for further outpatient evaluation and management. Disposition Disposition: Home, Self Care Discharge Date/Time: 01/21/24 19:17
[2024-01-21 16:09] VITALS: BP 137/80; PULSE 83; RESP 13; O2SAT 98
[2024-01-21 16:21] VITALS: BP 137/80; PULSE 84; RESP 13; O2SAT 97
[2024-01-21 16:23] LABS: Hematocrit 28.1 % (40-54); Hemoglobin 8.6 g/dL (13.0-16.5); Mean Corp Hgb Conc 30.6 g/dL (32-36); Mean Corpuscular Hgb 29.6 pg (27.0-32.0); Mean Corpuscular Volume 96.6 fL (80-94); Mean Platelet Vol. 10.8 fl (6.2-12.0); Platelet Count 246 K/mm3 (150-450); RBC Distribution Width CV 16.1 % (11.6-14.6); RBC Distribution Width SD 56.8 fl (35.1-43.9); Red Blood Count 2.91 M/mm3 (4.6-6.2)
--- NOTE | 2024-01-21 16:31 | ED.RN ---
ISSUE WITH MOLDER PUNCH. HAND HELD MONITOR AND LEADS HAVE BEEN SWITCHED, CONTINUE TO HAVE ISSUES WITH RHYTHM STRIPS.
[2024-01-21 16:45] LABS: ALB/GLOB Ratio 0.9 RATIO (0.9-2.4); AST(SGOT) 15 U/L (15-37); Alanine Aminotransfer ALT/SGPT 11 U/L (16-61); Albumin, Serum 3.3 g/dL (3.2-5.0); Alkaline Phosphatase 61 U/L (45-117); Anion Gap 6 (5-15); BUN 26 mg/dL (7-18); BUN/Creat Ratio 6.2 RATIO (10-20); Calcium,Total 8.6 mg/dL (8.5-10.1); Chloride 94 mmol/L (98-107); Creatinine, Serum 4.16 mg/dL (0.70-1.30); EST Glomerular Filtration Rate 15 mL/min (>60); Est Glom Filt Rate - Afr Amer 18 mL/min (>60); Estimated Creatinine Clearance 19.47 ml/min; Globulin 3.8 g/dL (2.2-4.2); Glucose 106 mg/dL (74-106); Potassium 3.6 mmol/L (3.5-5.1); Protein, Total 7.1 g/dL (6.4-8.2); Sodium Level 137 mmol/L (136-145)
[2024-01-21 18:00] VITALS: BP 128/76; PULSE 91; RESP 20; O2SAT 100
--- NOTE | 2024-01-21 18:08 | NURSING ---
[address] FRIEND [address] FRIEND [address] FRIEND'S PHONE, LEFT MESSAGE [phone] DR FRIEND CALLED BACK
[2024-01-21 19:16] VITALS: BP 123/78; PULSE 68; RESP 16; TEMP 36.2; O2SAT 96
== END 2024-01-21 19:17 | disposition home or self-care (01) ==
PROVIDERS: Emergency Provider Emergency Medicine; PCP Internal Medicine; Visit Provider Emergency Medicine
DX: K92.2 Gastrointestinal hemorrhage, unspecified (principal); N18.6 End stage renal disease; F17.210 Nicotine dependence, cigarettes, uncomplicated; Z86.718 Personal history of other venous thrombosis and embolism
CPT/HCPCS: 80053; 82274; 85027; 86850; 86900; 86901; 99284; A4216

== ENCOUNTER 2024-02-02 08:06 | Observation (INO) | payer MEDICARE, BC, SELFPAY ==
[2024-02-02] VITALS (18 sets, daily range): BP systolic 123–225; BP diastolic 80–132; PULSE 86–133; RESP 11–97; TEMP 36.1–37; O2SAT 10–100; BMI 30.6; BMI 29.7; BMI 29.6; BMI 28.5
--- NOTE | 2024-02-02 08:27 | EKG12_ITS ---
Test Reason : SOB Blood Pressure : / mmHG Vent. Rate : 118 BPM Atrial Rate : 118 BPM P-R Int : 182 ms QRS Dur : 078 ms QT Int : 308 ms P-R-T Axes : 037 -47 059 degrees QTc Int : 431 ms Sinus tachycardia with occasional Premature ventricular complexes Left axis deviation Minimal voltage criteria for LVH, may be normal variant ( R in aVL ) Inferior infarct (cited on or before 14-JAN-2024) Anteroseptal infarct (cited on or before 14-JAN-2024) Abnormal ECG Confirmed by OTILIO NDIAYE, CRIS ([id number]), scientific publications editor BHAVNA LOOMIS ([id number]) on 02/03/2024 9:31:03 AM Referred By: BRENNAN Confirmed By:CRIS YAÑZE MD
--- NOTE | 2024-02-02 08:27 | RAD_ITS ---
STUDY: X-RAY CHEST REASON FOR EXAM: Male, 68 years old. Dyspnea and increasing shortness of breath. TECHNIQUE: Single AP portable view of the chest. COMPARISON: Comparison is made with prior study dated December 22, 2023. FINDINGS: EKG electrodes are seen. Findings suggestive of vascular congestion and a mild degree of CHF with superimposed bibasilar atelectasis. Stable blunting of both cost phrenic angles. There is mild cardiac enlargement. Normal mediastinum and cirilo. Normal visualized pulmonary arteries. There is atherosclerotic calcification of the aortic arch with tortuosity. There are diffuse degenerative changes of the visualized thoracic spine. Normal visualized ribs, clavicles, and shoulders. There is no demonstrated abnormality of the visualized soft tissue structures of the upper abdomen. RAD/Chest 1 View (Portable) IMPRESSION: Findings suggestive of vascular congestion and mild CHF with bibasilar atelectasis and blunting of both costophrenic angles more prominent on the left side. Electronically Signed: Pierce Kuhn MD at 8:46 EDT ,
--- NOTE | 2024-02-02 08:28 | ED.VIS.DYS ---
HPI History of Present Illness Chief Complaint: Shortness of Breath Detail of Chief Complaint: Shortness of breath Informant: patient and family Narrative Narrative: Patient presents the emergency department via EMS from home with complaint shortness of breath this morning. Patient was scheduled to have dialysis today. Started feeling more short of breath and EMS was called. He was noted to be hypoxic with O2 sat of 88% on room air. Patient's had multiple admissions recently for GI bleed and has had blood transfusions and has been getting fluids. concerned he may be fluid overloaded. Patient denies any chest pain. He denies recent travel or surgery. He has history of anemia. [facility] Medical History Acute on chronic anemia Acute upper GI bleed Bursitis Cardiac disease Chronic anemia Dialysis patient DVT (deep venous thrombosis) Generalized weakness Hepatitis History of end stage renal disease History of renal dialysis Kidney disease Kidney failure due to vascular disorder Migraines Non-smoker Problem with dialysis access Rectal bleeding Rheumatoid aortitis Rheumatoid vasculitis Secondary hyperparathyroidism Smoker Subclavian aneurysm Home Medications acetaminophen 500 mg tablet 500 mg PO DAILY PAIN 11/21/19 [History Last Taken 02/02/24] amlodipine 5 mg tablet 5 mg PO BID BLOOD PRESSURE 08/24/23 [History Last Taken 02/01/24] calcium acetate(phosphat bind) 667 mg capsule 2,668 mg PO TID PHOSPHATE LEVELS 12/12/23 [History Last Taken 02/02/24] carvedilol 6.25 mg tablet 6.25 mg PO BID HEART 12/12/23 [History Last Taken 02/01/24] vitamin B complex-vitamin C-folic acid 0.8 mg tablet (Nephro-Christiano) 1 tab PO DAILY RENAL HEALTH 12/12/23 [History Last Taken 02/02/24] sucralfate 1 gram tablet 1 g PO BID ULCER TREATMENT/PREVENTION 90 days #180 tabs 12/28/23 [Rx Last Taken 02/02/24] cyanocobalamin (vitamin B-12) 1,000 mcg tablet (Vitamin B-12) 1,000 mcg PO DAILY supplement 01/12/24 [History Last Taken 02/02/24] pantoprazole 40 mg tablet,delayed release 40 mg PO BIDCM REFLUX 90 days #90 tabs 01/14/24 [Rx Last Taken 02/02/24] sennosides 8.6 mg-docusate sodium 50 mg tablet (Stool Softener-Stimulant Laxative) 2 tab PO BID PRN PRN Constipation #0 tabs 01/14/24 [Rx Last Taken Unknown] Allergy/AdvReac Type Severity Reaction Status Date / Time No Known Allergies Allergy Verified 02/02/24 08:08 Family History Other Cancer Diabetes Heart disease Surgical History History of bicuspid aortic valve History of umbilical hernia Hx of arteriovenostomy for renal dialysis (~12/2019) S/P knee surgery s/p subclavian graft Status post insertion of dialysis catheter (~11/2019) Social History household members: spouse housing: house Smoking Status: Current every day smoker tobacco type: cigarettes alcohol intake: never substance use type: does not use ROS ROS ED Review of Systems ROS Unobtainable: other Constitutional Constitutional ED: Reports lethargy; Denies chills, fever(s), sweats or weight loss Eyes Eyes: Denies blurry vision, change in vision or diplopia ENT ENT ED: Denies rhinorrhea or sore throat Cardiovascular Cardiovascular: Denies chest pain, orthopnea or racing heartbeat Respiratory/Chest Respiratory/Chest: Reports dyspnea and dyspnea on exertion; Denies cough, orthopnea or sputum Gastrointestinal Gastrointestinal: Denies abdominal pain, diarrhea, nausea or vomiting Genitourinary Genitourinary ED: Denies dysuria, hematuria or urinary frequency Musculoskeletal Musculoskeletal: Denies arthralgias, back pain, myalgias or neck pain Integumentary Denies abscess, Abrasions or rash Neurologic Neurologic: Denies headache(s) or weakness Psychiatric Psychiatric: Denies anxiety, depression or suicidal thoughts Endocrine Endocrinology: Denies polydipsia, polyphagia or polyuria Hematologic/Lymphatic Hematologic/Lymphatic: Denies easy bleeding, easy bruising or lymphadenopathy Allergic/Immunologic Allergic/Immunologic ED: Denies mouth swelling, tongue swelling or urticaria EXAM Physical Exam Const Vital Signs: 02/02/24 08:07 02/02/24 08:07 02/02/24 08:15 Temperature 97.1 F L 97.1 F L 97.1 F L Temperature Source Temporal Temporal Temporal Pulse Rate 132 H 133 H 130 H Respiratory Rate 97 H 21 H 15 Respiratory Effort Respiratory Depth Respiratory Pattern Blood Pressure 176/132 H 176/132 H 155/115 H Blood Pressure Mean 146 146 128 Pulse Ox 94 93 93 Oxygen Delivery Method CPAP Bi-pap Bi-pap Oxygen Flow Rate (L/min) 10 Fraction of Inspired Oxygen (FIO2) 40 40 02/02/24 08:10 02/02/24 08:27 02/02/24 08:15 Temperature Temperature Source Pulse Rate 130 H Respiratory Rate 20 H Respiratory Effort Short of Breath Labored Accessory Muscle Use Respiratory Depth Deep Respiratory Pattern Tachypnea Tachypnea Blood Pressure Blood Pressure Mean Pulse Ox 93 95 Oxygen Delivery Method CPAP Bi-pap Oxygen Flow Rate (L/min) 10 Fraction of Inspired Oxygen (FIO2) 40 40 02/02/24 08:45 Temperature Temperature Source Pulse Rate Respiratory Rate Respiratory Effort Respiratory Depth Respiratory Pattern Blood Pressure Blood Pressure Mean Pulse Ox Oxygen Delivery Method Oxygen Flow Rate (L/min) Fraction of Inspired Oxygen (FIO2) 30 Positive well nourished and well developed General Appearance ED: well developed and NAD HEENT Reports TM's clear and moist mucous membranes normocephalic and atraumatic; Negative for trauma or tenderness Tympanic Membrane ED: Yes TM's clear Eyes PERRL and EOMs intact bilaterally General Eye ED: Negative for pale conjunctiva or scleral icterus Neck no lymphadenopathy, supple and no JVD General: Negative for tenderness Chest Wall inspection of chest normal and palpation of chest normal Chest: Negative for tenderness Resp normal respiratory effort and clear to auscultation bilaterally Resp Narrative: Diminished breath sounds both lower lobes with some faint Rales. Mild tachypnea. Mild conversational dyspnea. Patient on BiPAP as I entered the room and does not appear to be in any acute respiratory distress. Effort and Inspection: Negative for respiratory distress or pain with movement Auscultation: Negative for rhonchi, wheezes or diminished lung sounds Cardio regular rate, regular rhythm, S1 normal heart sound, S2 normal heart sound and no murmurs Peripheral Pulses: pulses 2+ throughout GI normal to inspection, nondistended, normoactive bowel sounds, soft to palpation, non-tender, non-distended and no masses Back/Spine no CVA tenderness and no thoracic nor lumbar tenderness Extremity normal to inspection Extremity Narrative: Lymphedema both lower extremities. General Extremety ED: Yes edema General Extremity: edema Neuro oriented x3, CN's II-XII intact bilaterally, no sensory deficits noted and gait normal Sensorium / Orientation: awake, alert, oriented to person, oriented to place and oriented to time Motor Exam: strength 5/5 throughout and strength abnormal Psych mental status grossly normal Skin no rashes or lesions noted and no wounds MDM MDM MDM Narrative Medical decision making narrative: Patient presents with respiratory failure scheduled for dialysis today. Clinically suspect fluid overload. Patient was started on BiPAP. Patient placed on a playground monitor. EKG obtained showed sinus sinus tachycardia with ventricular rate of 118 bpm with evidence of LVH. CBC with differential showed a white count 11.5 with hemoglobin 9.7 and platelet count of 273. Chest x-ray showed fluid overload/CHF. Discussed case with patient's thread marker who will arrange emergent dialysis for patient. Will discuss with hospitalist evaluate for admission. Lab Data Attestation: I reviewed the patient's lab results. Labs: Laboratory Results - last 24 hr 02/02/24 08:15 WBC 11.5 H RBC 3.39 L Hgb 9.7 L Hct 34.2 L MCV 100.9 H MCH 28.6 MCHC 28.4 L RDW Std Deviation 62.1 H RDW Coeff of Brynn 17.1 H Plt Count 273 MPV 11.6 Immature Gran % (Auto) 0.300 Neut % (Auto) 68.8 Lymph % (Auto) 17.5 L [place] % (Auto) 10.0 Eos % (Auto) 2.4 Baso % (Auto) 1.0 Absolute Neuts (auto) 7.9 H Absolute Lymphs (auto) 2.00 Nucleated RBC % 0 Radiography Diagnostic Testing: Clinical Impression(s) from Imaging Studies Chest X-Ray 02/02/24 08:27 IMPRESSION: Findings suggestive of vascular congestion and mild CHF with bibasilar atelectasis and blunting of both costophrenic angles more prominent on the left side. Electronically Signed: Pierce Kuhn MD at 8:46 EDT , 1 view chest x-ray obtained interpreted by myself as mild cardiomegaly with vascular congestion and suspect CHF. Radiology in agreement. EKG Initial EKG: Attestation: I personally reviewed and interpreted this EKG as follows: Comments: Sinus tachycardia with ventricular rate of 118 bpm with LVH Discharge Plan Dx/Rx/DC Orders Clinical Impression: Respiratory failure, Anemia, CHF (congestive heart failure), Chronic renal failure Disposition Disposition: Acute Care Hospital [facility]
[2024-02-02 08:33] LABS: Absolute Neutrophil Count 7.9 X10^3/uL (2.0-7.7); Basophil# 0.11 X10^3/uL; Eosinophil# 0.27 X10^3/uL; Eosinophils% 2.4 % (0-5); Hematocrit 34.2 % (40-54); Hemoglobin 9.7 g/dL (13.0-16.5); Lymphocyte % 17.5 % (19-41); Mean Corp Hgb Conc 28.4 g/dL (32-36); Mean Corpuscular Hgb 28.6 pg (27.0-32.0); Mean Corpuscular Volume 100.9 fL (80-94); Mean Platelet Vol. 11.6 fl (6.2-12.0); Monocyte# 1.15 X10^3/uL; NRBC Flagged by Analyzer 0 % (0-5); Neutrophil # 7.88 X10^3/uL (2.7-7.7); Neutrophil % 68.8 % (47-70); Platelet Count 273 K/mm3 (150-450); RBC Distribution Width CV 17.1 % (11.6-14.6); RBC Distribution Width SD 62.1 fl (35.1-43.9); Red Blood Count 3.39 M/mm3 (4.6-6.2); White Blood Count 11.5 K/mm3 (4.4-11.0)
--- NOTE | 2024-02-02 08:45 | CPS ---
decreased FiO2 to 30%
--- NOTE | 2024-02-02 09:14 | PCM.HP.STD ---
HPI - General General Date of Admission: 02/02/24 Date of Service: 02/02/24 Chief Complaint: Shortness of breath HPI Narrative BINDU DUMONT, is a 68 M who presented to the emergency department at [facility] on 02/02/2024 complaining of shortness of breath. Symptoms starting on the morning of presentation. He was scheduled to have dialysis today as he is a Thursday, , Thursday dialysis patient. EMS was called due to his shortness of breath and he was found to be hypoxic with an oxygen saturation of 88% on room air. He had multiple recent admissions recently for GI bleed and multiple transfusions along with getting IV fluids. is concerned that he may be overloaded on presentation. The patient states that he has been having shortness of breath even between his Thursday and dialysis sessions. He is unclear what his current dry weight is and states that they have been changing it. He states at the [facility] he is going to for his dialysis they are not able to tell much fluid they are taking off because the machines are broken. They do weigh him before and after but he cannot recall his last weight. He had multiple admissions recently for bleeding gastric ulcers but his hemoglobin at this point is stable and actually improving up to 9.7 today. He denies any fevers, chills, cough, hemoptysis, nausea, vomiting, diarrhea or chest pain. Vital signs on presentation showed a temperature of 97.1, heart rate was 132, blood pressure was 176/132, respiratory rate was 21 and the squad had placed him on CPAP on 10 L and his pulse ox was 94%. Evidently on room air, his oxygen saturations were in the 80s in the field. CBC shows a mild leukocytosis with white count 11.5, hemoglobin is improving and currently at 9.7 he had no left shift. His chemistry panel shows chronic BUN and serum creatinine elevation consistent with his hemodialysis requirements at baseline. A troponin was done and was 240 however the significance of this is unclear as he has chronic troponin elevation and he has chronic renal disease. A BNP was ordered but is pending. Chest x-ray is consistent with volume overload showing vascular congestion and mild CHF with bibasilar atelectasis and blunting of both costophrenic angles more prominent on the left than the right. EKG showed sinus tachycardia with no ST-T wave changes concerning for acute ischemia. Respiratory viral workup is pending at the time of admission. The emergency department physician contacted nephrology and arranged for emergent dialysis to be done. [facility] Medical History Acute on chronic anemia Acute upper GI bleed Bursitis Cardiac disease Chronic anemia Dialysis patient DVT (deep venous thrombosis) Generalized weakness Hepatitis History of end stage renal disease History of renal dialysis Kidney disease Kidney failure due to vascular disorder Migraines Non-smoker Problem with dialysis access Rectal bleeding Rheumatoid aortitis Rheumatoid vasculitis Secondary hyperparathyroidism Smoker Subclavian aneurysm Home Medications acetaminophen 500 mg tablet 500 mg PO DAILY PAIN 11/21/19 [History Last Taken 02/02/24] amlodipine 5 mg tablet 5 mg PO BID BLOOD PRESSURE 08/24/23 [History Last Taken 02/01/24] calcium acetate(phosphat bind) 667 mg capsule 2,668 mg PO TID PHOSPHATE LEVELS 12/12/23 [History Last Taken 02/02/24] carvedilol 6.25 mg tablet 6.25 mg PO BID HEART 12/12/23 [History Last Taken 02/01/24] vitamin B complex-vitamin C-folic acid 0.8 mg tablet (Nephro-Christiano) 1 tab PO DAILY RENAL HEALTH 12/12/23 [History Last Taken 02/02/24] sucralfate 1 gram tablet 1 g PO BID ULCER TREATMENT/PREVENTION 90 days #180 tabs 12/28/23 [Rx Last Taken 02/02/24] cyanocobalamin (vitamin B-12) 1,000 mcg tablet (Vitamin B-12) 1,000 mcg PO DAILY supplement 01/12/24 [History Last Taken 02/02/24] pantoprazole 40 mg tablet,delayed release 40 mg PO BIDCM REFLUX 90 days #90 tabs 01/14/24 [Rx Last Taken 02/02/24] sennosides 8.6 mg-docusate sodium 50 mg tablet (Stool Softener-Stimulant Laxative) 2 tab PO BID PRN PRN Constipation #0 tabs 01/14/24 [Rx Last Taken Unknown] Allergy/AdvReac Type Severity Reaction Status Date / Time No Known Allergies Allergy Verified 02/02/24 08:08 Family History Other Cancer Diabetes Heart disease Surgical History History of bicuspid aortic valve History of umbilical hernia Hx of arteriovenostomy for renal dialysis (~12/2019) S/P knee surgery s/p subclavian graft Status post insertion of dialysis catheter (~11/2019) Social History household members: spouse housing: house Smoking Status: Current every day smoker tobacco type: cigarettes alcohol intake: never substance use type: does not use ROS Constitutional Constitutional: Reports change in weight; Denies anorexia, chills, fatigue, fever(s), malaise, night sweats, weakness or other Eyes Eyes: Denies blurry vision, change in eye color, change in vision, discharge from eye(s), double vision, erythema, eye pain, loss of vision or other ENT HEENT: Denies abnormal hearing, dysphagia, ear pain, epistaxis, headache(s), hearing loss, nasal congestion, nasal discharge, post nasal drip, sinus pressure, sore throat or other Cardiovascular Cardiovascular: Reports dyspnea on exertion; Denies chest pain, claudication, edema, lightheadedness, orthopnea, palpitations, paroxysmal nocturnal dyspnea, rapid heart rate, syncope or other Respiratory/Chest Respiratory/Chest: Reports dyspnea, shortness of breath at rest and shortness of breath with exertion; Denies cough, excessive phlegm production, hemoptysis, productive cough, wheezing or other Gastrointestinal Gastrointestinal: Denies abdominal pain, coffee ground emesis, constipation, diarrhea, dyspepsia, hematemesis, hematochezia, loose stools, melena, nausea, vomiting or other Genitourinary Genitourinary: Denies burning urination, difficulty urinating, dysuria, hematuria, nocturia, urinary frequency, urinary hesitancy, urinary incontinence, urinary urgency or other Musculoskeletal Musculoskeletal: Denies arthralgias, back pain, joint pain, joint stiffness, joint swelling, myalgias, neck pain or other Neurologic Neurologic: Denies abnormal gait, abnormal speech, confusion, disequilibrium, dizziness, focal weakness, headache(s), numbness, paresthesias, seizure-like activity, seizures, syncope, tingling, tremor(s) or other Psychiatric Psychiatric: Denies anxiety, depression, homicidal ideation, suicidal ideation or other Endocrine Endocrinology: Denies change in body appearance, cold intolerance, excessive sweating, heat intolerance, polydipsia, polyuria or other Hematologic/Lymphatic Hematologic/Lymphatic: Reports anemia; Denies easy bleeding, easy bruising, lymphadenopathy or other Allergic/Immunologic Allergic/Immunologic: Denies rhinitis, hives, eczemia, asthma or other Vital Signs Vital Signs Vital Signs: 02/02/24 08:07 02/02/24 08:07 02/02/24 08:15 Temperature 97.1 F L 97.1 F L 97.1 F L Temperature Source Temporal Temporal Temporal Pulse Rate 132 H 133 H 130 H Respiratory Rate 97 H 21 H 15 Respiratory Effort Respiratory Depth Respiratory Pattern Blood Pressure 176/132 H 176/132 H 155/115 H Blood Pressure Mean 146 146 128 Pulse Ox 94 93 93 Oxygen Delivery Method CPAP Bi-pap Bi-pap Oxygen Flow Rate (L/min) 10 Fraction of Inspired Oxygen (FIO2) 40 40 02/02/24 08:10 02/02/24 08:27 02/02/24 08:15 Temperature Temperature Source Pulse Rate 130 H Respiratory Rate 20 H Respiratory Effort Short of Breath Labored Accessory Muscle Use Respiratory Depth Deep Respiratory Pattern Tachypnea Tachypnea Blood Pressure Blood Pressure Mean Pulse Ox 93 95 Oxygen Delivery Method CPAP Bi-pap Oxygen Flow Rate (L/min) 10 Fraction of Inspired Oxygen (FIO2) 40 40 02/02/24 08:45 Temperature Temperature Source Pulse Rate Respiratory Rate Respiratory Effort Respiratory Depth Respiratory Pattern Blood Pressure Blood Pressure Mean Pulse Ox Oxygen Delivery Method Oxygen Flow Rate (L/min) Fraction of Inspired Oxygen (FIO2) 30 Weight Weight: 96.9 kg Body Mass Index (BMI) 30.6 Physical Exam Const alert, oriented x3, no apparent distress and well nourished; Negative for average body habitus or healthy appearing Constitutional Narrative: Obese, chronically ill-appearing, white male, sitting up in bed, currently appears comfortable on 2 L nasal cannula, at bedside, nontoxic, very pleasant General Appearance: cooperative HEENT normocephalic, head/scalp atraumatic and moist oral mucous membranes Resp normal respiratory effort, no retractions and no use of accessory muscles Resp Narrative: Diffuse bilateral crackles worse at bilateral bases Auscultation: crackles Cardio regular rate, regular rhythm, S1 normal heart sound, no rub, no gallops and no clicks; Negative for S2 normal heart sound or no murmurs Cardio Narrative: 3 out of 6 to 4 out of 6 systolic murmur loudest at right upper sternal border and radiates to bilateral carotids, soft S2 GI normal to inspection, nondistended, normoactive bowel sounds, soft to palpation and non-tender Extremity Extremity Narrative: Bilateral lower extremity edema that is chronic, no cyanosis or clubbing Skin Skin Narrative: Left upper extremity fistula Neuro oriented x3, moves all extremities and no focal motor deficits Speech: speech normal Psych affect normal Psych Narrative: Eye contact is good, patient is extremely pleasant, interacts appropriately Results Lab / Micro Data 02/02/24 08:15 02/02/24 08:15 Labs: Laboratory Results - last 24 hr 02/02/24 08:15: WBC 11.5 H, RBC 3.39 L, Hgb 9.7 L, Hct 34.2 L, MCV 100.9 H, MCH 28.6, MCHC 28.4 L, RDW Std Deviation 62.1 H, RDW Coeff of Brynn 17.1 H, Plt Count 273, MPV 11.6, Immature Gran % (Auto) 0.300, Neut % (Auto) 68.8, Lymph % (Auto) 17.5 L, [place] % (Auto) 10.0, Eos % (Auto) 2.4, Baso % (Auto) 1.0, Absolute Neuts (auto) 7.9 H, Absolute Lymphs (auto) 2.00, Nucleated RBC % 0 Imaging Radiology Impression Chest X-Ray 02/02/24 08:27 IMPRESSION: Findings suggestive of vascular congestion and mild CHF with bibasilar atelectasis and blunting of both costophrenic angles more prominent on the left side. Electronically Signed: Pierce Kuhn MD at 8:46 EDT , Assessment & Plan Assessment/Plan (1) CHF (congestive heart failure): (2) Respiratory failure: PLAN: Plan Acute hypoxic respiratory failure secondary to volume overload - on presentation patient was hypoxic with hypertension, tachycardia, and tachypnea -Required transient BiPAP in the emergency department to decrease work of breathing with oxygen saturations at 93% on BiPAP of 40% -Recent echocardiogram done however he was markedly anemic at the time -If hemoglobin above 10 tomorrow will repeat echocardiogram and discussed case with Dr. Barclay -I did discuss the case with Dr. Palomo and the above was his suggestion the patient does have pretty significant aortic valve disease however his anemia was felt to be confounding the clinical picture and the intent was to repeat his echocardiogram once his hemoglobin was above 10. -Chest x-ray shows volume overload -Will check flu/COVID/RSV panel and this is currently pending -Continuous pulse ox while on BiPAP -ER physician has already discussed the case with nephrology and they are arranging for emergent dialysis here today -As needed nebulizers Tachycardia -Likely related to the above -Anticipate heart rate should improve once his respiratory status improves -Will monitor on telemetry Aortic valve stenosis -Severity is unclear -Last echocardiogram reported severe disease however he is anemic which confounded the clinical picture -Will repeat echocardiogram tomorrow if hemoglobin above 10 -Hemoglobin is currently 9.7 Chronic anemia -Hemoglobin is stable and actually up trending nicely -Continue to monitor End-stage renal disease on HD -Has dialysis Thursday//Thursday -Emergent dialysis arranged by Dr. Russo -Will try to call Dr. 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
[2024-02-02 09:24] LABS: Anion Gap 14 (5-15); BUN 51 mg/dL (7-18); BUN/Creat Ratio 5.4 RATIO (10-20); Calcium,Total 9.3 mg/dL (8.5-10.1); Chloride 99 mmol/L (98-107); Creatinine, Serum 9.47 mg/dL (0.70-1.30); EST Glomerular Filtration Rate 6 mL/min (>60); Est Glom Filt Rate - Afr Amer 7 mL/min (>60); Estimated Creatinine Clearance 8.72 ml/min; Glucose 245 mg/dL (74-106); Potassium 4.2 mmol/L (3.5-5.1); Sodium Level 139 mmol/L (136-145); Troponin-I HS 240 pg/mL (3.0-78.0)
[2024-02-02] MEDS: Calcium Acetate 667 MG Capsule 2668 MG PO ×2 (11:19→17:21)
[2024-02-02 12:24] LABS: BNP,B-Type NATRIURETIC PEPTIDE > 5000.0 pg/mL (0-100)
[2024-02-02] MEDS: Folic Acid/Vitamin B Comp W-C 1 Capsule 1 CAP PO (17:21)
[2024-02-02] MEDS: Pantoprazole Sodium 40 MG Tablet PO (17:22)
--- NOTE | 2024-02-02 18:10 | CON.PCM.RE_ITS ---
Assessment & Plan Assessment/Plan (1) End stage renal disease on dialysis: PLAN: On hemodialysis. He is previous dry weight was 97 kg. Due to repeated hospitalizations, he has lost a significant amount of weight. Over the last 1 week, his dry weight has been adjusted down to 93 kg. With aggressive volume removal, his blood pressure has been dropping. Chest x-ray looks somewhat wet. Troponins are borderline high. For now we will plan for dialysis today, with goal fluid removal of 3 to 4 L. Depending on the response, we might plan for extra ultrafiltration tomorrow. Will call outpatient dialysis unit to arrange for isolated UF followed by hemodialysis. HPI Consult Data Date of Consult: 02/02/24 HPI Narrative Reason for Consultation: ESRD HPI Narrative: BINDU DUMONT, is a 68 M who presents To the hospital with shortness of breath. Nephrology on consultation due to ESRD. Currently on hemodialysis Thursday, , Thursday schedule. Last dialysis was Thursday, uneventful. He has had several hospitalizations recently due to GI bleed. On aggressive IV iron regimen along with HERMINIO. Did require 1 extra dialysis treatment last week due to shortness of breath. Currently does not have any lower extremity edema. Woke up this morning with sudden onset of shortness of breath. Denies any chest pain, chest tightness. Reviewed dialysis records, his blood pressure coming in has been okay but has been dropping blood pressure with aggressive volume removal. [facility] Medical History Acute on chronic anemia Acute upper GI bleed Bursitis Cardiac disease Chronic anemia Dialysis patient DVT (deep venous thrombosis) Generalized weakness Hepatitis History of end stage renal disease History of renal dialysis Kidney disease Kidney failure due to vascular disorder Migraines Non-smoker Problem with dialysis access Rectal bleeding Rheumatoid aortitis Rheumatoid vasculitis Secondary hyperparathyroidism Smoker Subclavian aneurysm Home Medications acetaminophen 500 mg tablet 500 mg PO DAILY PAIN 11/21/19 [History Last Taken 02/02/24] amlodipine 5 mg tablet 5 mg PO BID BLOOD PRESSURE 08/24/23 [History Last Taken 02/01/24] calcium acetate(phosphat bind) 667 mg capsule 2,668 mg PO TID PHOSPHATE LEVELS 12/12/23 [History Last Taken 02/02/24] carvedilol 6.25 mg tablet 6.25 mg PO BID HEART 12/12/23 [History Last Taken 02/01/24] vitamin B complex-vitamin C-folic acid 0.8 mg tablet (Nephro-Christiano) 1 tab PO DAILY RENAL HEALTH 12/12/23 [History Last Taken 02/02/24] sucralfate 1 gram tablet 1 g PO BID ULCER TREATMENT/PREVENTION 90 days #180 tabs 12/28/23 [Rx Last Taken 02/02/24] cyanocobalamin (vitamin B-12) 1,000 mcg tablet (Vitamin B-12) 1,000 mcg PO DAILY supplement 01/12/24 [History Last Taken 02/02/24] pantoprazole 40 mg tablet,delayed release 40 mg PO BIDCM REFLUX 90 days #90 tabs 01/14/24 [Rx Last Taken 02/02/24] sennosides 8.6 mg-docusate sodium 50 mg tablet (Stool Softener-Stimulant Laxative) 2 tab PO BID PRN PRN Constipation #0 tabs 01/14/24 [Rx Last Taken Unknown] Allergy/AdvReac Type Severity Reaction Status Date / Time No Known Allergies Allergy Verified 02/02/24 08:08 Family History Other Cancer Diabetes Heart disease Surgical History History of bicuspid aortic valve History of umbilical hernia Hx of arteriovenostomy for renal dialysis (~12/2019) S/P knee surgery s/p subclavian graft Status post insertion of dialysis catheter (~11/2019) Social History household members: spouse housing: house Smoking Status: Current every day smoker tobacco type: cigarettes alcohol intake: never substance use type: does not use ROS ROS Narrative Negative except above Physical Exam Narrative Alert awake oriented x 3 no obvious distress no pallor no icterus no JVD s1s2 no murmurs lungs clear abdomen soft no organomegaly no edema no cyanosis Lab / Micro Data 02/02/24 08:15 02/02/24 08:15 Labs: Laboratory Results - last 24 hr 02/02/24 08:15: WBC 11.5 H, RBC 3.39 L, Hgb 9.7 L, Hct 34.2 L, MCV 100.9 H, MCH 28.6, MCHC 28.4 L, RDW Std Deviation 62.1 H, RDW Coeff of Brynn 17.1 H, Plt Count 273, MPV 11.6, Immature Gran % (Auto) 0.300, Neut % (Auto) 68.8, Lymph % (Auto) 17.5 L, [place] % (Auto) 10.0, Eos % (Auto) 2.4, Baso % (Auto) 1.0, Absolute Neuts (auto) 7.9 H, Absolute Lymphs (auto) 2.00, Nucleated RBC % 0, Sodium 139, Potassium 4.2, Chloride 99, Carbon Dioxide 26.0, Anion Gap 14, BUN 51 H, Creatinine 9.47 H*, Estim Creat Clear Calc 8.72, Est GFR (MDRD) Af Amer 7 L, Est GFR (MDRD) Non-Af 6 L, BUN/Creatinine Ratio 5.4 L, Glucose 245 H, Calcium 9.3, Troponin I High Sens 240 H*, B-Natriuretic Peptide > 5000.0 H Micro: Microbiology 02/02/24 09:40 Mucosa - Nasopharyngeal SARS-CoV-2, Influenza & RSV (PCR) - Final Imaging Radiology Impression Chest X-Ray 02/02/24 08:27 IMPRESSION: Findings suggestive of vascular congestion and mild CHF with bibasilar atelectasis and blunting of both costophrenic angles more prominent on the left side. Electronically Signed: Pierce Kuhn MD at 8:46 EDT ,
--- NOTE | 2024-02-02 20:45 | CPS ---
Patient refused PAP therapy for the night.
[2024-02-02] MEDS: Sucralfate 1 GM Tablet PO (22:38)
[2024-02-03 03:05] VITALS: BP 116/84; PULSE 86; RESP 18; TEMP 37.2; O2SAT 96
[2024-02-03 05:31] VITALS: BMI 29.5
[2024-02-03 06:02] LABS: Absolute Lymphocyte Count 0.81 X10^3/uL (0.83-4.51); Basophil# 0.05 X10^3/uL; Basophil% 0.9 % (0-1); Eosinophil# 0.11 X10^3/uL; Eosinophils% 1.9 % (0-5); Hematocrit 28.6 % (40-54); Hemoglobin 8.4 g/dL (13.0-16.5); Lymphocyte # 0.81 X10^3/ul (0.83-4.51); Lymphocyte % 14.1 % (19-41); Mean Corp Hgb Conc 29.4 g/dL (32-36); Mean Corpuscular Hgb 29.3 pg (27.0-32.0); Mean Corpuscular Volume 99.7 fL (80-94); Mean Platelet Vol. 10.7 fl (6.2-12.0); Monocyte# 0.77 X10^3/uL; Monocyte% 13.4 % (0-10); NRBC Flagged by Analyzer 0 % (0-5); Neutrophil # 4.02 X10^3/uL (2.7-7.7); Neutrophil % 69.7 % (47-70); Platelet Count 199 K/mm3 (150-450); RBC Distribution Width CV 16.7 % (11.6-14.6); RBC Distribution Width SD 60.8 fl (35.1-43.9); Red Blood Count 2.87 M/mm3 (4.6-6.2); White Blood Count 5.8 K/mm3 (4.4-11.0)
[2024-02-03] MEDS: Sucralfate 1 GM Tablet PO (06:05)
[2024-02-03 07:13] LABS: Anion Gap 8 (5-15); BUN 47 mg/dL (7-18); BUN/Creat Ratio 5.5 RATIO (10-20); Calcium,Total 9.1 mg/dL (8.5-10.1); Chloride 103 mmol/L (98-107); Creatinine, Serum 8.62 mg/dL (0.70-1.30); EST Glomerular Filtration Rate 7 mL/min (>60); Est Glom Filt Rate - Afr Amer 8 mL/min (>60); Estimated Creatinine Clearance 9.42 ml/min; Glucose 119 mg/dL (74-106); Sodium Level 139 mmol/L (136-145)
[2024-02-03 09:05] VITALS: BP 112/91; PULSE 95; RESP 18; TEMP 36.9; O2SAT 98
--- NOTE | 2024-02-03 09:15 | CASEMGMT ---
RN [facility] NOTE: RN CM to room. Pt sitting up in chair. @ bedside. Intro role of CM to patient and GOFF form explained re: Observation status for treatment of hypoxia secondary to volume overload.? Explained hospitalization will be paid per?his insurance policy for Outpatient billing?and condition will continue to be evaluated for Inpt necessity. Also let pt and know that [facility] sends paper in the billing packet with their phone number if questions arise. Discussed Pharmacy section of GOFF form and self administered medication guideline.? Pt and verbalizes understanding and do not have further questions. ?Form signed, copy made and placed in chart, and original given to pt. Gordon JEROME RN CM
[2024-02-03] MEDS: Acetaminophen 500 MG Tablet PO (10:01)
[2024-02-03] MEDS: Calcium Acetate 667 MG Capsule 2668 MG PO ×2 (10:01→11:33)
[2024-02-03] MEDS: Cyanocobalamin 500 MCG Tablet 1000 MCG PO (10:01)
[2024-02-03] MEDS: Folic Acid/Vitamin B Comp W-C 1 Capsule 1 CAP PO (10:01)
[2024-02-03] MEDS: Pantoprazole Sodium 40 MG Tablet PO (10:02)
[2024-02-03 10:10] VITALS: O2SAT 95; O2SAT 96
[2024-02-03 11:59] LABS: Hemoglobin 8.7 g/dL (13.0-16.5)
--- NOTE | 2024-02-03 13:04 | DS.PCM_ITS ---
Providers Date of Admission: 02/02/24 Date of Discharge: 02/03/24 Primary Care Physician: Dr. Bekah Washington MD Consultations 02/02/24 10:14 Consult: Nephrology Routine Consulting Provider: Hanh Russo Reason for Consult: HD EMERGENT Consult: No MD Notified: Yes Date Notified: 02/02/24 Time Notified: 09:12 Method of Notification: ED Physician Initiated Reason For Visit: HYPOXIA 2/2 VOLUME OVERLOAD Diagnosis Discharge Diagnosis (1) End stage renal disease on dialysis: Status: Acute Code(s): N18.6 - End stage renal disease; Z99.2 - Dependence on renal dialysis Medications at Discharge Home Medications acetaminophen 500 mg tablet 500 mg PO DAILY PAIN 11/21/19 calcium acetate(phosphat bind) 667 mg capsule 2,668 mg PO TID PHOSPHATE LEVELS 12/12/23 carvedilol 6.25 mg tablet 6.25 mg PO BID HEART 12/12/23 vitamin B complex-vitamin C-folic acid 0.8 mg tablet (Nephro-Christiano) 1 tab PO DAILY RENAL HEALTH 12/12/23 sucralfate 1 gram tablet 1 g PO BID ULCER TREATMENT/PREVENTION 90 days #180 tabs 12/28/23 cyanocobalamin (vitamin B-12) 1,000 mcg tablet (Vitamin B-12) 1,000 mcg PO DAILY supplement 01/12/24 pantoprazole 40 mg tablet,delayed release 40 mg PO BIDCM REFLUX 90 days #90 tabs 01/14/24 sennosides 8.6 mg-docusate sodium 50 mg tablet (Stool Softener-Stimulant Laxative) 2 tab PO BID PRN PRN Constipation #0 tabs 01/14/24 Hospital Course Operations None Procedures Dialysis, EKG and - (Chest x-ray) Summary of Care Provided Minutes Spent on Discharge: 30 Hospital Course: Mr. Joe is a 68-year-old white male who presented to emergency department was from hospital on 02/02/2024 complaining of shortness of breath. His symptoms started on the morning of presentation. He was scheduled to have dialysis that day as he gets dialysis on Thursday, , and Thursday. EMS was called due to his shortness of breath and he was found to be hypoxic with an oxygen saturations of 88% on room air. He has had recent multiple admissions for GI bleeding with multiple transfusions along with getting IV fluids and his is concerned that he may be volume overloaded on presentation. The patient reported that he been having shortness of breath even between his Thursday and dialysis sessions and does not feel like there pulling enough fluid at his outpatient dialysis unit. His hemoglobin was noted to be stable on admission so this was felt to be noncontributory. His vital signs on presentation demonstrated temperature of 97.1, heart rate 132, blood pressure 176/132 and respiratory rate was 21. The squad placed him on CPAP at 10 L and h is pulse ox improved to 94%. He required transient BiPAP in the emergency department however recovered quite nicely and was able to be weaned to 2 L supplemental nasal cannula. CBC showed mild leukocytosis with a white count of 11.5. Again his hemoglobin was stable compared to his most recent admission. He had no left shift. His chemistry panel was overtly unremarkable and at his baseline with regards to his serum creatinine and BUN. His troponin was 240 however the significance of this was unclear due to his history of chronic renal disease. He had no chest pain. I discussed the case with cardiology and they felt that this was likely insignificant at this point and we have arranged outpatient follow-up for further evaluation and ongoing evaluation of his aortic valve which is stenotic on his most recent echocardiogram. We have scheduled appointment to see Dr. Aric Palomo in the outpatient setting on February 14. His chest x-ray did show vascular congestion. EKG showed sinus tachycardia with no ST-T wave changes concerning for acute ischemia. Respiratory viral panel was ne gative at the time of admission. He was admitted to the PCU and nephrology was consulted. I discussed the case with nephrology and they were able to remove fluid with dialysis on 02/02/2024. Just with dialysis his oxygenation improved and he was able to be on room air with oxygen saturations at 96% at rest and 95% with exertion. Dr. Russo has also arranged changes in his outpatient dialysis unit which were reflected yesterday in his dialysis which I am hoping help him considerably with fluid removal and help him from being short of breath and get volume overloaded between his dialysis sessions as an outpatient. I suspect this is likely multifactorial with a bad aortic valve, his worsening anemia from baseline due to his recent multiple GI bleeds, and his volume removal with dialysis. He was able to be discharged in stable condition on 02/03/2024 to home. He is to follow-up with his primary care physician in the next 2 to 4 weeks, appointment with Dr. Palomo has been made for February 14 and he is to continue dialysis and follow-up with Dr. Russo as previously directed. Discharge diagnoses Acute hypoxic respiratory failure secondary to volume overload-resolved with dialysis Tachycardia-resolved Aortic valve stenosis-moderate to severe Anemia End-stage renal disease CAD Hypertension Peptic ulcer disease History of migraines History of subclavian aneurysm History of rheumatoid arthritis/vasculitis History of tobacco abuse Physical Exam Narrative Patient states his breathing feels fine. Was worried about his hemoglobin because it dropped from yesterday however was stable after 6-hour check here going from 8.4-8.7. He is comfortable with discharge home. Const alert, oriented x3, no apparent distress, no limitations and well nourished; Negative for average body habitus or healthy appearing Constitutional Narrative: Obese, chronically ill-appearing, white male, sitting up in a chair at the beds giovanny, on room air, at bedside, nontoxic, very pleasant General Appearance: cooperative, comfortable, well kempt and well developed Orientation / Consciousness: awake, oriented to person, oriented to place and oriented to time Exam Limitations: no limitations Nutritional Appearance: overweight HEENT normocephalic, head/scalp atraumatic and moist oral mucous membranes HEENT Narrative: Mild to moderate hearing loss, Mallampati 2, no thrush Resp normal respiratory effort, no retractions, no use of accessory muscles and clear to auscultation bilaterally Auscultation: Negative for crackles, rhonchi or wheezes Cardio regular rate, regular rhythm, S1 normal heart sound, no rub, no gallops and no clicks; Negative for S2 normal heart sound or no murmurs Cardio Narrative: 3 out of 6 to 4 out of 6 systolic murmur loudest at right upper sternal border and radiates to bilateral carotids, soft S2 GI normal to inspection, nondistended, normoactive bowel sounds, soft to palpation and non-tender Extremity Extremity Narrative: Bilateral lower extremity edema that is chronic, no cyanosis or clubbing Skin Skin Narrative: Left upper extremity fistula Neuro oriented x3, moves all extremities and no focal motor deficits Speech: speech normal Psych affect normal Psych Narrative: Eye contact is good, patient is extremely pleasant, interacts appropriately Weight / BMI Weight Weight: 93.6 kg Body Mass Index (BMI) 29.5 ABG / Lab / Microbiology Data 02/03/24 11:41 02/03/24 05:45 Laboratory: Laboratory Results - last 24 hr 02/03/24 05:45: WBC 5.8, RBC 2.87 L, Hgb 8.4 L, Hct 28.6 L, MCV 99.7 H, MCH 29.3, MCHC 29.4 L, RDW Std Deviation 60.8 H, RDW Coeff of Brynn 16.7 H, Plt Count 199, MPV 10.7, Immature Gran % (Auto) 0.000, Neut % (Auto) 69.7, Lymph % (Auto) 14.1 L, Cobb % (Auto) 13.4 H, Eos % (Auto) 1.9, Baso % (Auto) 0.9, Absolute Neuts (auto) 4.0, Absolute Lymphs (auto) 0.81 L, Nucleated RBC % 0, Sodium 139, Potassium 4.0, Chloride 103, Carbon Dioxide 28.0, Anion Gap 8, BUN 47 H, Creatinine 8.62 H*, Estim Creat Clear Calc 9.42, Est GFR (MDRD) Af Amer 8 L, Est GFR (MDRD) Non-Af 7 L, BUN/Creatinine Ratio 5.5 L, Glucose 119 H, Calcium 9.1 02/03/24 11:41: Hgb 8.7 L Microbiology: Microbiology 02/02/24 09:40 Mucosa - Nasopharyngeal SARS-CoV-2, Influenza & RSV (PCR) - Final D/C Instructions Discharge Diet: Low fat / Low cholesterol and Renal Diet Discharge Activity: Return to Normal Activity Meaningful Use Info Meaningful Use Diagnoses (Choose all that apply): None applicable Discharge Plan Admission Admit Date/Time: 02/02/24 09:09 Primary Reason for Your Visit: Shortness of breath Attending Provider: Ofelia Walls Primary Care Provider: Bekah Washington Consulting Providers: Hanh Russo Discharge Orders/Prescriptions Prescriptions: Continued acetaminophen 500 MG tablet 500 mg PO DAILY calcium acetate(phosphat bind) 667 mg capsule 2,668 mg PO TID Rx Instructions: TAKE 4 CAPSULES BY MOUTH THREE TIMES DAILY WITH MEALS. carvedilol 6.25 mg tablet 6.25 mg PO BID Nephro-Christiano 0.8 mg tablet 1 tab PO DAILY Rx Instructions: TAKE 1 TABLET BY MOUTH EVERY DAY (ON DIALYSIS DAYS, TAKE AFTER DIALYSIS TREATMENT) cyanocobalamin (vitamin B-12) [Vitamin B-12] 1,000 mcg tablet 1,000 mcg PO DAILY sennosides-docusate sodium [Stool Softener-Stimulant Laxat] 8.6-50 mg Tablet 2 tab PO BID PRN PRN (Reason: Constipation) Qty: 0 0RF pantoprazole 40 mg tablet,delayed release (DR/EC) 40 mg PO BIDCM 90 Days Qty: 90 1RF sucralfate 1 gram tablet 1 g PO BID 90 Days Qty: 180 0RF Discontinued amlodipine 5 mg tablet 5 mg PO BID Referrals / Follow Up: Aric Palomo MD [Med Staff - Active Staff] - 02/15/24 2:30 pm Bekah Washington MD [Primary Care Provider] - Disposition Disposition (needs filled in before D/C Order can be placed): Home, Self Care Charges/Coding Visit Charges Inpatient E&M: 41862 Disch Hosp
--- NOTE | 2024-02-03 13:21 | PN.RENAL_ITS ---
Subjective Subjective Breathing is better, back to baseline. Hemoglobin is noted to be lower. No obvious bleeding. Objective Data Objective Data Vital Signs: Vital Signs Temp Pulse Resp BP Pulse Ox O2 Del Method O2 Flow Rate 98.5 F 95 18 112/91 H 96 Room Air 0 02/03/24 09:05 02/03/24 09:05 02/03/24 09:05 02/03/24 09:05 02/03/24 10:10 02/03/24 09:05 02/03/24 10:10 FiO2 30 02/02/24 08:45 Oxygen Flow Rate (L/min) [ 0 AMBULATING on Room Air] Oxygen Flow Rate (L/min) [At 0 REST on Room Air] Oxygen Flow Rate (L/min) 2 Oxygen Delivery Method Room Air Weight: 93.6 kg Body Mass Index (BMI) 29.5 Intake & Output: Intake and Output for Last 24 Hours 02/01/24 02/02/24 02/03/24 23:59 23:59 23:59 Intake Total 930 / 930 360 / 360 Output Total 3550 / 3550 Balance -2620 / -2620 360 / 360 Lab / Micro Data 02/03/24 11:41 02/03/24 05:45 Labs: Laboratory Results - last 24 hr 02/03/24 05:45: WBC 5.8, RBC 2.87 L, Hgb 8.4 L, Hct 28.6 L, MCV 99.7 H, MCH 29.3, MCHC 29.4 L, RDW Std Deviation 60.8 H, RDW Coeff of Brynn 16.7 H, Plt Count 199, MPV 10.7, Immature Gran % (Auto) 0.000, Neut % (Auto) 69.7, Lymph % (Auto) 14.1 L, [place] % (Auto) 13.4 H, Eos % (Auto) 1.9, Baso % (Auto) 0.9, Absolute Neuts (auto) 4.0, Absolute Lymphs (auto) 0.81 L, Nucleated RBC % 0, Sodium 139, Potassium 4.0, Chloride 103, Carbon Dioxide 28.0, Anion Gap 8, BUN 47 H, Creatinine 8.62 H*, Estim Creat Clear Calc 9.42, Est GFR (MDRD) Af Amer 8 L, Est GFR (MDRD) Non-Af 7 L, BUN/Creatinine Ratio 5.5 L, Glucose 119 H, Calcium 9.1 02/03/24 11:41: Hgb 8.7 L Micro: Microbiology 02/02/24 09:40 Mucosa - Nasopharyngeal SARS-CoV-2, Influenza & RSV (PCR) - Final Physical Exam Narrative Alert awake oriented x 3 no obvious distress no pallor no icterus no JVD s1s2 no murmurs lungs clear abdomen soft no organomegaly no edema no cyanosis Assessment & Plan Assessment/Plan (1) End stage renal disease on dialysis: PLAN: On hemodialysis. S/p dialysis yesterday. We were able to remove good amount of fluid. Breathing is better. His troponins were borderline, will follow with cardiology. Hemoglobin is lower today. Values to be repeated. I have called the dialysis unit and updated orders for isolated ultrafiltration in the beginning and hemodialysis after. Possible discharge home this afternoon as long as hemoglobin is stable.
[2024-02-03 13:26] VITALS: BP 112/91; PULSE 95; RESP 18; TEMP 36.9; O2SAT 98
--- NOTE | 2024-02-03 14:40 | PHA.DC.MR.R ---
Pharmacy ID Med Reconciliation Pharmacy Service has performed discharge medication reconciliation for this patient. The patient's discharge medication list was reviewed for discrepancies and discrepancies were resolved. Medications at Discharge Home Medications acetaminophen 500 mg tablet 500 mg PO DAILY PAIN 11/21/19 calcium acetate(phosphat bind) 667 mg capsule 2,668 mg PO TID PHOSPHATE LEVELS 12/12/23 carvedilol 6.25 mg tablet 6.25 mg PO BID HEART 12/12/23 vitamin B complex-vitamin C-folic acid 0.8 mg tablet (Nephro-Christiano) 1 tab PO DAILY RENAL HEALTH 12/12/23 sucralfate 1 gram tablet 1 g PO BID ULCER TREATMENT/PREVENTION 90 days #180 tabs 12/28/23 cyanocobalamin (vitamin B-12) 1,000 mcg tablet (Vitamin B-12) 1,000 mcg PO DAILY supplement 01/12/24 pantoprazole 40 mg tablet,delayed release 40 mg PO BIDCM REFLUX 90 days #90 tabs 01/14/24 sennosides 8.6 mg-docusate sodium 50 mg tablet (Stool Softener-Stimulant Laxative) 2 tab PO BID PRN PRN Constipation #0 tabs 01/14/24
--- NOTE | 2024-02-03 14:41 | CASEMGMT ---
Patient has order for discharge. RN CM in to discuss needs or help at discharge. Patient denies needs or help at discharge. Patient had no further questions or concerns.
== END 2024-02-03 13:05 | disposition home or self-care (01) ==
LOC: ED 09:04 → PCU 09:17
PROVIDERS: Admitting Provider Internal Medicine; Emergency Provider Emergency Medicine; PCP Internal Medicine; Visit Provider Internal Medicine
DX: E87.70 Fluid overload, unspecified (principal); I13.2 Hypertensive heart and chronic kidney disease with heart failure and with stage 5 chronic kidney disease, or end stage renal disease; N18.6 End stage renal disease; M06.9 Rheumatoid arthritis, unspecified; J96.01 Acute respiratory failure with hypoxia; I50.20 Unspecified systolic (congestive) heart failure; I35.0 Nonrheumatic aortic (valve) stenosis; Z99.2 Dependence on renal dialysis; F17.210 Nicotine dependence, cigarettes, uncomplicated; D64.9 Anemia, unspecified; Z79.899 Other long term (current) drug therapy
CPT/HCPCS: 36415; 71045; 80048; 83880; 84484; 85018; 85025; 87631; 90937; 93005; 94002; 94668; 99221; 99252; 99284; G0257; G0378; G0463

== ENCOUNTER 2024-02-10 06:02 | Day surgery (SDC) | payer MEDICARE, BC, SELFPAY ==
[2024-02-10 06:20] VITALS: BP 114/78; PULSE 81; RESP 18; TEMP 36.9; O2SAT 98; BMI 28.8
[2024-02-10] MEDS: 0.9% Normal Saline (500mL Bag) 500 ML 15 ML IV (06:30)
--- NOTE | 2024-02-10 07:15 | EGD_PTH ---
PATIENT: BINDU DUMONT LOC: EN U#:[id number] AGE/SX: 68/M ROOM: RE02/10/[address]: Dr. Cade Ross DO : 1955 BED: DIS: 02/10/2024 SPEC #: [id number] RECD: 02/10/24 10:17 STATUS: DALE KEYUR #: [id number] SHELBY: 02/10/24 07:[address]: Cade Ross DEPT: SURGICAL PATHOLOGY RECD BY: Yasmin Luu ENTERED: 02/10/24 11:22 SP TYPE: EGD BIOPSY MENA DR: Dr. Bekah Washington MD Tissues: Esophagus, NOS Procedures: Special Stain Group II Surgery Specimen Level IV Alcian Blue/PAS (control) HEADER OPERATION: EGD PRE-OP DIAGNOSIS: GI bleed TISSUE SUBMITTED: Distal esophagus biopsy MICROSCOPIC DIAGNOSIS Distal esophagus, biopsy: Fragments of gastric mucosa with moderate chronic inflammation. Intestinal metaplasia (goblet cell metaplasia) not identified. See comment. [facility] 02/11/24 COMMENT Alcian blue/PAS stain with matched control is used in the evaluation of the specimen. MICROSCOPIC DESCRIPTION Slides are reviewed. GROSS DESCRIPTION Received in fixative is one container labeled with the patient's name and designated Distal esophagus biopsy. The specimen consists of one irregular fragment of light hermosillo soft tissue that measures 0.3 x 0.3 x 0.1 cm. The specimen is totally submitted in one cassette. [facility] 02/10/24 TC:3 CPT: 32111,31521
--- NOTE | 2024-02-10 07:18 | PCM.HP.BLA ---
History and Physical Date of Admission: 02/10/24 BINDU DUMONT, is a 68 M who presented to the emergency department at [facility] on 01/12/2024 with weakness and black tarry stools. He was recently admitted for an acute GI bleed from 12/12/2023 through 12/15/2023 and at that time an EGD that showed a normal esophagus, small hiatal hernia, and n oozing duodenal ulcer with pigmented material. This was injected and he had was treated with heater probe. He also had a nonbleeding duodenal ulcer that had no stigmata of recent bleeding it was biopsied. He was discharged on Protonix and Carafate and biopsies were unremarkable. He came back to the emergency department on 12/24/2023 at which time he was complaining of worsening shortness of breath and weakness. He reported that his stools were dark again and his hemoglobin at dialysis was assessed to be 8.4. Upon presentation it was 7.8 and he was admitted with recurrent upper GI bleed. He was taken for EGD which demonstrated normal esophagus, mild Schatzki's ring, a single bleeding angiodysplastic lesion in the stomach that was treated with heater probe and oozing duodenal ulcer that was treated with heater probe. A colonoscopy was done at that time which had unsatisfactory prep but did show diverticulosis in the rectosigmoid colon, sigmoid colon and descending colon with 112 mm polyp in the descending colon that was removed with hot snare. 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 He was discharged home and had been doing well. He recently saw us in the outpatient setting on 01/06/2024 and was doing well so his aspirin was reinstituted and he was allowed to start heparin with dialysis again. On Thursday his stool became tarry and black again so he came to the emergency department today after his hemoglobin was found to be 8.0 at dialysis. He did have a full dialysis session prior to coming emergency department. CBC shows a normal white count with a hemoglobin of 8.7 however his repeat hemoglobin had dropped to 7.1. Everything else is within normal limits except for low potassium at 3.2. 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 Smoker Subclavian aneurysm Home Medications acetaminophen 500 mg tablet 500 mg PO DAILY PAIN 11/21/19 [History Last Taken 12/12/23] amlodipine 5 mg tablet 5 mg PO BID BLOOD PRESSURE 08/24/23 [History Last Taken 12/24/23] calcium acetate(phosphat bind) 667 mg capsule 2,668 mg PO TID PHOSPHATE LEVELS 12/12/23 [History Last Taken 12/23/23] carvedilol 6.25 mg tablet 6.25 mg PO BID HEART 12/12/23 [History Last Taken 12/24/23] vitamin B complex-vitamin C-folic acid 0.8 mg tablet (Nephro-Christiano) 1 tab PO DAILY RENAL HEALTH 12/12/23 [History Last Taken 12/23/23] pantoprazole 40 mg tablet,delayed release 40 mg PO DAILY REFLUX 90 days #90 tabs 12/28/23 [Rx Last Taken Unknown] sucralfate 1 gram tablet 1 g PO BID ULCER TREATMENT/PREVENTION 90 days #180 tabs 12/28/23 [Rx Last Taken Unknown] cyanocobalamin (vitamin B-12) 1,000 mcg tablet (Vitamin B-12) 1,000 mcg PO DAILY supplement 01/12/24 [History Last Taken Unknown] Allergy/AdvReac Type Severity Reaction Status Date / Time No Known Allergies Allergy Verified 01/12/24 13:32 Family History Other Cancer Diabetes Heart disease Surgical History History of bicuspid aortic valve History of umbilical hernia Hx of arteriovenostomy for renal dialysis (~12/2019) S/P knee surgery s/p subclavian graft Status post insertion of dialysis catheter (~11/2019) Social History household members: spouse housing: house Smoking Status: Current every day smoker tobacco type: cigarettes alcohol intake: never substance use type: does not use ROS Constitutional Constitutional: Reports fatigue and weakness; Denies anorexia, change in weight, chills, fever(s), malaise, night sweats or other Eyes Eyes: Denies blurry vision, change in eye color, change in vision, discharge from eye(s), double vision, erythema, eye pain, loss of vision or other ENT HEENT: Denies abnormal hearing, dysphagia, ear pain, epistaxis, headache(s), hearing loss, nasal congestion, nasal discharge, post nasal drip, sinus pressure, sore throat or other Cardiovascular Cardiovascular: Denies chest pain, claudication, dyspnea on exertion, edema, lightheadedness, orthopnea, palpitations, paroxysmal nocturnal dyspnea, rapid heart rate, syncope or other Respiratory/Chest Respiratory/Chest: Denies cough, dyspnea, excessive phlegm production, hemoptysis, productive cough, shortness of breath at rest, shortness of breath with exertion, wheezing or other Gastrointestinal Gastrointestinal: Reports melena; Denies abdominal pain, coffee ground emesis, constipation, diarrhea, dyspepsia, hematemesis, hematochezia, loose stools, nausea, vomiting or other Genitourinary Genitourinary: Denies burning urination, difficulty urinating, dysuria, hematuria, nocturia, urinary frequency, urinary hesitancy, urinary incontinence, urinary urgency or other Musculoskeletal Musculoskeletal: Reports other Details: Generalized weakness ; Denies arthralgias, back pain, joint pain, joint stiffness, joint swelling, myalgias or neck pain Neurologic Neurologic: Denies abnormal gait, abnormal speech, confusion, disequilibrium, dizziness, focal weakness, headache(s), numbness, paresthesias, seizure-like activity, seizures, syncope, tingling, tremor(s) or other Psychiatric Psychiatric: Denies anxiety, depression, homicidal ideation, suicidal ideation or other Endocrine Endocrinology: Denies change in body appearance, cold intolerance, excessive sweating, heat intolerance, polydipsia, polyuria or other Hematologic/Lymphatic Hematologic/Lymphatic: Denies anemia, easy bleeding, easy bruising, lymphadenopathy or other Allergic/Immunologic Allergic/Immunologic: Denies rhinitis, hives, eczemia, asthma or other Physical Exam Const alert, oriented x3 and no apparent distress General Appearance: cooperative, well kempt and well developed Orientation / Consciousness: awake, oriented to person, oriented to place and oriented to time HEENT normocephalic and moist oral mucous membranes Eyes PERRL, EOMs intact bilaterally and conjunctivae normal Neck supple, no JVD, thyroid normal and no carotid bruits General: trachea midline Resp normal respiratory effort, no retractions, no use of accessory muscles and clear to auscultation bilaterally Auscultation: Negative for rales, rhonchi or wheezes Cardio regular rate, regular rhythm, no rub and no gallops Cardio Narrative: 2/6 systolic murmur is noted at the right sternal border GI normal to inspection, nondistended, normoactive bowel sounds, soft to palpation, non-tender and non-distended Extremity no clubbing, cyanosis or edema Skin no rashes or lesions noted General Skin Exam: no breakdown Neuro oriented x3, CN's II-XII intact bilaterally, moves all extremities, no focal motor deficits and no sensory deficits noted Sensorium / Orientation: awake and alert Speech: speech normal Psych affect normal Lab / Micro Data 01/12/24 17:16 01/12/24 14:30 Labs: Laboratory Results - last 24 hr 01/12/24 14:30: WBC 8.0, RBC 2.80 L, Hgb 8.7 L, Hct 27.6 L, MCV 98.6 H, MCH 31.1, MCHC 31.5 L, RDW Std Deviation 60.6 H, RDW Coeff of Brynn 17.0 H, Plt Count 206, MPV 10.4, Immature Gran % (Auto) 0.500, Neut % (Auto) 68.6, Lymph % (Auto) 17.0 L, [place] % (Auto) 12.4 H, Eos % (Auto) 0.9, Baso % (Auto) 0.6, Absolute Neuts (auto) 5.5, Absolute Lymphs (auto) 1.36, Nucleated RBC % 0, Sodium 137, Potassium 3.2 L, Chloride 96 L, Carbon Dioxide 38.0 H, Anion Gap 3 L, BUN 32 H, Creatinine 4.12 H, Estim Creat Clear Calc 20.24, Est GFR (MDRD) Af Amer 19 L, Est GFR (MDRD) Non-Af 15 L, BUN/Creatinine Ratio 7.8 L, Glucose 83, Calcium 8.4 L, Total Bilirubin 0.40, AST 13 L, ALT 11 L, Alkaline Phosphatase 60, Total Protein 7.1, Albumin 3.4, Globulin 3.7, Albumin/Globulin Ratio 0.9, Blood Type A POSITIVE, Antibody Screen NEGATIVE 01/12/24 15:13: PT 14.1, INR 1.1, APTT 30.5 01/12/24 17:16: Hgb 7.1 L Assessment & Plan Assessment/Plan (1) Acute on chronic anemia: (2) Generalized weakness: PLAN: Plan Acute on chronic anemia -Recent EGD on 12/15/2023 that showed normal esophagus, small hiatal hernia, oozing duodenal ulcers that were injected and treated with heater probe as well as a nonbleeding duodenal ulcer -Biopsies are unremarkable -Continue Protonix but increase dose from 40 mg daily to 40 mg p.o. twice daily -Continue home Carafate -Repeat CBC in a.m. - EGD I have examined the patient and the H&P has been reviewed. There are no clinical changes since date of exam.
[2024-02-10 07:33] VITALS: BP 114/78; BP 92/55; PULSE 76; RESP 18; TEMP 36.6; O2SAT 99
--- NOTE | 2024-02-10 07:39 | OP.EGD_ITS ---
Patient Name: Barry Joe Procedure Date: 02/10/2024 7:13 AM Date of : 1955 Age: 68 Procedure: Upper GI endoscopy Indications: Iron deficiency anemia secondary to chronic blood loss, Melena Providers: Cade Ross DO Referring MD: Bekah Washington Md Medicines: Monitored Anesthesia Care Patient Profile: This is a 68 year old male. Refer to note in patient chart for documentation of history and physical. Patient has symptoms of chronic epigastric abdominal pain. Complications: No immediate complications. Procedure: Pre-Anesthesia Assessment: - Prior to the procedure, a History and Physical was performed, and patient medications and allergies were reviewed. The patient is competent. The risks and benefits of the procedure and the sedation options and risks were discussed with the patient. All questions were answered and informed consent was obtained. Patient identification and proposed procedure were verified by the physician in the pre-procedure area. Mental Status Examination: alert and oriented. Airway Examination: normal oropharyngeal airway and neck mobility. Respiratory Examination: clear to auscultation. CV Examination: normal. Prophylactic Antibiotics: The patient does not require prophylactic antibiotics. Prior Anticoagulants: The patient has taken no anticoagulant or antiplatelet agents. ASA Grade Assessment: III - A patient with severe systemic disease. After reviewing the risks and benefits, the patient was deemed in satisfactory condition to undergo the procedure. The anesthesia plan was to use monitored anesthesia care (MAC). Immediately prior to administration of medications, the patient was re-assessed for adequacy to receive sedatives. The heart rate, respiratory rate, oxygen saturations, blood pressure, adequacy of pulmonary ventilation, and response to care were monitored throughout the procedure. The physical status of the patient was re-assessed after the procedure. After obtaining informed consent, the endoscope was passed under direct vision. Throughout the procedure, the patient's blood pressure, pulse, and oxygen saturations were monitored continuously. The Endoscope was introduced through the mouth, and advanced to the second part of duodenum. The upper GI endoscopy was accomplished without difficulty. The patient tolerated the procedure well. Scope In: 7:25:30 AM Scope Out: 7:28:36 AM Total Procedure Duration Time 0 hours 3 minutes 6 seconds Findings: The Z-line was irregular and was found 40 cm from the incisors. Biopsies were taken with a cold forceps for histology. Verification of patient identification for the specimen was done. Estimated blood loss was minimal. No gross lesions were noted in the stomach. No gross lesions were noted in the second portion of the duodenum. Impression: - Z-line irregular, 40 cm from the incisors. Biopsied. - No gross lesions in the stomach. - No gross lesions in the second portion of the duodenum. Recommendation: - Discharge patient to home. - Resume previous diet. - Continue present medications. Procedure Code(s): --- Professional --- 14404, Esophagogastroduodenoscopy, flexible, transoral; with biopsy, single or multiple CPT copyright 2021 [employer]. All rights reserved. The codes documented in this report are preliminary and upon certified medical records coder review may be revised to meet current compliance requirements. Cade Ross DO 02/10/2024 7:39:00 AM This report has been signed electronically. Number of Addenda: 0 Note Initiated On: 02/10/2024 7:13 AM
--- NOTE | 2024-02-10 07:39 | OP.CCLET_ITS ---
02/10/2024 Bekah Washington Md Re : Upper GI endoscopy procedure for Barry Joe Sabino Washington This procedure was performed on Saturday, February 10, 2024. My impressions and recommendations are as follows: Impressions : - Z-line irregular, 40 cm from the incisors. Biopsied. - No gross lesions in the stomach. - No gross lesions in the second portion of the duodenum. Recommendations : - Discharge patient to home. - Resume previous diet. - Continue present medications. My findings are described in the full procedure note, which is enclosed. If I can be of further assistance, please feel free to contact me at . Sincerely, Cade Ross, 02/10/2024 7:39:00 AM This report has been signed electronically.
[2024-02-10 07:40] VITALS: BP 114/78; BP 99/65; PULSE 76; RESP 18; O2SAT 97
[2024-02-10 07:45] VITALS: BP 114/78; BP 84/59; PULSE 69; RESP 18; O2SAT 96
[2024-02-10 07:48] VITALS: BP 114/78; BP 86/61; PULSE 71; RESP 18; TEMP 36.9; O2SAT 96
[2024-02-10 08:04] VITALS: BP 114/78
== END 2024-02-10 08:18 | disposition home or self-care (01) ==
LOC: EN 06:03 → AC 06:03
PROVIDERS: PCP Internal Medicine; Referring Provider Internal Medicine; Visit Provider Internal Medicine Gastroenterology
PROC: 0DJ08ZZ Inspection of Upper Intestinal Tract, Via Natural or Artificial Opening Endoscopic (ICD-10-PCS; CPT 43235; principal; 2024-02-10 07:10)
DX: K20.90 Esophagitis, unspecified without bleeding (principal); N18.6 End stage renal disease; I12.0 Hypertensive chronic kidney disease with stage 5 chronic kidney disease or end stage renal disease; D50.0 Iron deficiency anemia secondary to blood loss (chronic); R53.1 Weakness; F17.210 Nicotine dependence, cigarettes, uncomplicated; Z79.899 Other long term (current) drug therapy; Z86.718 Personal history of other venous thrombosis and embolism
CPT/HCPCS: 43239; 88305; 88313; J7030; J7120; J2405

== ENCOUNTER → 2024-03-02 | Outpatient (CLI) | payer MEDICARE, BC, SELFPAY ==
--- NOTE | 2024-03-02 10:50 | ECHOL_ITS ---
Reason For Study: AORTIC STENOSIS Procedure This was a limited 2D transthoracic echocardiogram. Exam performed in department. Left Ventricle Mildly dilated left ventricle. The estimated ejection fraction is 40 %. Unable to assess diastolic dysfunction. There is moderate global hypokinesis of the left ventricle. Right Ventricle Normal RV size. Normal systolic function. Atria The left atrium is mildly enlarged. Normal right atrium. No doppler evidence for ASD. Mitral Valve There is moderate mitral annular calcification. There is no mitral valve stenosis. Moderate (2+) mitral valve insufficiency. Tricuspid Valve There is no tricuspid stenosis. Unable to estimate RV systolic pressure due to insufficient tricuspid regurgitant envelope. Trivial tricuspid valve insufficiency. Aortic Valve Severe aortic stenosis. Mild-Moderate (1-2+) aortic valve insufficiency. Pulmonic Valve There is no pulmonic valvular stenosis. No pulmonic valve insufficiency. Great Vessels Normal aortic root. Pericardium/Pleural No pericardial effusion. MMode/2D Measurements & Calculations LVIDd: 5.9 cm IVSd: 1.3 cm LVOT diam: 2.1 cm LVIDs: 5.2 cm LVPWd: 1.2 cm LVOT area: 3.4 cm2 RVDd: 3.9 cm FS: 12.8 % Ao root diam: 3.5 cm LAV(MOD-bp): 70.0 ml LVAd ap4: 49.1 cm2 LAV(MOD-bp) Indexed: 33.8 ml/m2 LVLd ap4: 9.9 cm LAV(MOD-sp2): 75.2 ml EDV(MOD-sp4): 201.8 ml LAV(MOD-sp4): 63.9 ml EDV(sp4-el): 206.5 ml LVAs ap4: 37.9 cm2 LVLs ap4: 9.1 cm ESV(MOD-sp4): 132.1 ml ESV(sp4-el): 133.7 ml EF(MOD-sp4): 34.6 % EF(sp4-el): 35.3 % LVAd ap2: 51.6 cm2 SV(MOD-sp4): 69.8 ml SV(MOD-sp2): 86.6 ml LVLd ap2: 9.7 cm EDV(MOD-sp2): 225.9 ml EDV(sp2-el): 232.5 ml LVAs ap2: 38.1 cm2 LVLs ap2: 8.6 cm ESV(MOD-sp2): 139.2 ml ESV(sp2-el): 142.6 ml EF(MOD-sp2): 38.4 % SV(sp4-el): 72.8 ml LA dimension(2D): 4.4 cm LA A4 area: 20.5 cm2 RA A4 area: 18.2 cm2 TAPSE: 1.9 cm Time Measurements MV dec time: 0.12 sec Doppler Measurements & Calculations MV E max tejas: 126.5 cm/sec Lat Peak E' Tejas: 9.6 cm/sec Med Peak E' Tejas: 5.4 cm/sec MV A max tejas: 119.6 cm/sec E/E' lat: 13.1 E/E' med: 23.5 MV E/A: 1.1 Ao V2 max: 429.1 cm/sec AI max tejas: 425.8 cm/sec MV dec slope: 1080 cm/sec2 Ao max P.7 mmHg AI max P.5 mmHg Ao V2 mean: 343.3 cm/sec Ao mean P.0 mmHg AI dec slope: 288.2 cm/sec2 Ao V2 VTI: 95.9 cm AI P1/2t: 432.7 msec AV (velocity ratio): 0.21 BRITTANY(I,D): 0.70 cm2 BRITTANY(V,D): 0.65 cm2 LV V1 max: 82.8 cm/sec SV(LVOT): 67.2 ml LV V1 max P.7 mmHg LV V1 mean P.7 mmHg LV V1 mean: 62.8 cm/sec LV V1 VTI: 19.9 cm ECHO/Echo, Limited Study Interpretation Summary The estimated ejection fraction is 40 %. There is moderate global hypokinesis of the left ventricle. The left atrium is mildly enlarged. Unable to assess diastolic dysfunction. Moderate (2+) mitral valve insufficiency. Severe aortic stenosis. Mild-Moderate (1-2+) aortic valve insufficiency. Ordering Physician: Aric Palomo Referring Physician: Aric Palomo MD Performed By: Vanessa Kamara RDCS
== END | disposition home or self-care (01) ==
LOC: CVS 10:47
PROVIDERS: PCP Internal Medicine; Referring Provider Internal Medicine Cardiovascular Disease; Visit Provider Internal Medicine Cardiovascular Disease
DX: Q23.1 Congenital insufficiency of aortic valve (principal)
CPT/HCPCS: 93308

== ENCOUNTER 2024-03-10 07:27 | Inpatient (IN) | payer MEDICARE, BC, SELFPAY ==
[2024-03-10] VITALS (24 sets, daily range): BP systolic 94–189; BP diastolic 67–111; PULSE 76–119; RESP 12–21; TEMP 36.1–37.1; O2SAT 2–100; BMI 29.4; BMI 28.8; BMI 28.7; BMI 27.7
--- NOTE | 2024-03-10 07:33 | EKG12_ITS ---
Test Reason : SOB Blood Pressure : / mmHG Vent. Rate : 106 BPM Atrial Rate : 106 BPM P-R Int : 172 ms QRS Dur : 098 ms QT Int : 344 ms P-R-T Axes : 044 -54 085 degrees QTc Int : 456 ms Sinus tachycardia Possible Left atrial enlargement Left anterior fascicular block Minimal voltage criteria for LVH, may be normal variant ( R in aVL ) Cannot rule out Anterior infarct (cited on or before 14-JAN-2024) Abnormal ECG Confirmed by OTILIO NDIAYE, CRIS ([id number]), editorial specialist BHAVNA LOOMIS ([id number]) on 03/11/2024 10:27:37 AM Referred By: Confirmed By:CRIS YAÑEZ MD
--- NOTE | 2024-03-10 07:36 | ED.VIS.DYS ---
HPI History of Present Illness Chief Complaint: Shortness of Breath Informant: patient Onset/Context/Timing Onset: Today Context: gradual Narrative Narrative: Patient presents via EMS secondary to progressive shortness of breath that started overnight. He does have a history of chronic renal failure and is on dialysis Thursday, , and Thursday. He presents early on a morning and was due for dialysis at 930. He states he did have a full run on Thursday. He denies any chest pain. No significant cough or fever. states that they are following closely with cardiology and recently had an echocardiogram. He is undergoing workup for possible valve replacement. EMS reported patient's O2 sat was 86% on room air. He does not wear home oxygen. [facility] Medical History Acute on chronic anemia Acute upper GI bleed Anemia Back pain Bursitis Cardiac disease Cardiology follow-up encounter Chronic anemia Chronic renal failure Dialysis patient Dietary restriction DVT (deep venous thrombosis) End stage renal disease on dialysis Generalized weakness Hepatitis History of diverticulitis History of echocardiogram History of end stage renal disease History of renal dialysis History of renal disease History of steroid therapy History of ulceration Hypertension Kidney failure due to vascular disorder Low iron Lymphedema Migraine headache Problem with dialysis access Rectal bleeding 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 hyperparathyroidism Shortness of breath on exertion Smoker Subclavian aneurysm Wears glasses Home Medications acetaminophen 500 mg tablet 500 mg PO DAILY PAIN 11/21/19 [History Last Taken 02/10/24] calcium acetate(phosphat bind) 667 mg capsule 2,668 mg PO TID PHOSPHATE LEVELS 12/12/23 [History Last Taken 02/09/24] carvedilol 6.25 mg tablet 6.25 mg PO BID HEART 12/12/23 [History Last Taken 02/10/24] vitamin B complex-vitamin C-folic acid 0.8 mg tablet (Nephro-Christiano) 1 tab PO DAILY RENAL HEALTH 12/12/23 [History Last Taken 02/09/24] sucralfate 1 gram tablet 1 g PO BID ULCER TREATMENT/PREVENTION 90 days #180 tabs 12/28/23 [Rx Last Taken 02/10/24] cyanocobalamin (vitamin B-12) 1,000 mcg tablet (Vitamin B-12) 1,000 mcg PO DAILY supplement 01/12/24 [History Last Taken 02/09/24] pantoprazole 40 mg tablet,delayed release 40 mg PO BIDCM REFLUX 90 days #90 tabs 01/14/24 [Rx Last Taken 02/09/24] Allergy/AdvReac Type Severity Reaction Status Date / Time No Known Allergies Allergy Verified 02/15/24 13:28 Family History Other Cancer Diabetes Heart disease Surgical History History of bicuspid aortic valve History of esophagogastroduodenoscopy (EGD) History of umbilical hernia Hx of arteriovenostomy for renal dialysis (~12/2019) Hx of colonoscopy with polypectomy S/P knee surgery s/p subclavian graft Status post insertion of dialysis catheter (~11/2019) Social History household members: spouse housing: house Smoking Status: Current every day smoker tobacco type: cigarettes alcohol intake: never substance use type: does not use ROS ROS ED Constitutional Constitutional ED: Denies chills or fever(s) Eyes Eyes: Denies discharge from eye(s) ENT ENT ED: Denies discharge from eye(s), rhinorrhea or sore throat Cardiovascular Cardiovascular: Denies chest pain or palpitations Respiratory/Chest Respiratory/Chest: Reports dyspnea; Denies cough Gastrointestinal Gastrointestinal: Denies abdominal pain, nausea or vomiting Musculoskeletal Musculoskeletal: Denies back pain or extremity pain Integumentary Denies Abrasions or rash Neurologic Neurologic: Denies headache(s) or weakness Psychiatric Psychiatric: Denies anxiety or depression Allergic/Immunologic Allergic/Immunologic ED: Denies lip swelling or urticaria EXAM Physical Exam Const Vital Signs: 03/10/24 07:26 03/10/24 07:34 03/10/24 07:26 Temperature 98.8 F 98.8 F 98.8 F Temperature Source Oral Oral Oral Pulse Rate 119 H 117 H 115 H Respiratory Rate 20 H 19 H 21 H Respiratory Effort Respiratory Depth Respiratory Pattern Blood Pressure 171/111 H 171/111 H 171/111 H Blood Pressure Mean 131 131 131 Pulse Ox 97 97 97 Oxygen Delivery Method Nasal Cannula Nasal Cannula Bi-pap Oxygen Flow Rate (L/min) 4 4 Fraction of Inspired Oxygen (FIO2) 03/10/24 07:38 03/10/24 07:37 03/10/24 08:21 Temperature Temperature Source Pulse Rate 117 H 86 Respiratory Rate 20 H 20 H Respiratory Effort Short of Breath Head Bobbing Respiratory Depth Normal Respiratory Pattern Tachypnea Blood Pressure 94/67 Blood Pressure Mean 76 Pulse Ox 97 97 Oxygen Delivery Method Nasal Cannula Bi-pap Oxygen Flow Rate (L/min) 4 Fraction of Inspired Oxygen (FIO2) 30 Positive well nourished and well developed General Appearance ED: well developed HEENT Reports moist mucous membranes Eyes EOMs intact bilaterally Resp Resp Narrative: Tachypnea with diminished breath sounds and slight expiratory wheezes in the upper lung morgan. Diminished breath sounds at the bases bilaterally. Cardio Rate: tachycardic GI non-tender Palpation: soft Extremity Extremity Narrative: 2-3+ bilateral lower extremity edema, symmetric. Neuro oriented x3 Neuro Narrative: No focal neurologic deficit. 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 BiPAP ordered given the patient's work of breathing. Labwork obtained to evaluate for leukocytosis, anemia, and electrolyte derangement. Chest x-ray obtained to evaluate for acute lung pathology, cardiac size, or mediastinal abnormality. 0.5 inches Nitropaste ordered to the chest to help with fluid redistribution. History & Record Review Discussion w/independent historian: Patient and Significant other Additional record(s) reviewed:: Prior inpatient record, Prior outpatient record, Prior ED visit and Prior labs Lab Data Attestation: I reviewed the patient's lab results. Labs: Laboratory Results - last 24 hr 03/10/24 07:38 WBC 8.6 RBC 4.12 L Hgb 11.1 L Hct 38.1 L MCV 92.5 MCH 26.9 L MCHC 29.1 L RDW Std Deviation 65.6 H RDW Coeff of Brynn 20.9 H Plt Count 250 MPV 11.8 Immature Gran % (Auto) 0.500 Neut % (Auto) 71.0 H Lymph % (Auto) 16.0 L Schley % (Auto) 9.6 Eos % (Auto) 2.0 Baso % (Auto) 0.9 Absolute Neuts (auto) 6.1 Absolute Lymphs (auto) 1.38 Nucleated RBC % 0 Differential Comment SCANNED Anisocytosis 2+ Microcytosis 1+ Macrocytosis 1+ Sodium 134 L Potassium 4.5 Chloride 96 L Carbon Dioxide 24.0 Anion Gap 14 BUN 50 H Creatinine 8.68 H* Estim Creat Clear Calc 9.33 Est GFR (MDRD) Af Amer 8 L Est GFR (MDRD) Non-Af 7 L BUN/Creatinine Ratio 5.8 L Glucose 211 H Calcium 9.3 Troponin I High Sens 59 B-Natriuretic Peptide > 5000.0 H Radiography Chest X-Ray - ED: 1 View, Read by ED Physician and CHF Diagnostic Testing: Clinical Impression(s) from Imaging Studies Chest X-Ray 03/10/24 07:52 IMPRESSION: Findings suggestive of vascular congestion mild CHF with bibasilar atelectasis. Electronically Signed: Pierce Kuhn MD at 8:29 EDT , EKG Initial EKG: Attestation: I personally reviewed and interpreted this EKG as follows: Interpretation: Sinus Tachycardia (Sinus tachycardia at 106. No acute ischemia.) Treatment and Re-Evaluation :: Patient was placed on BiPAP for ease of breathing and is much more comfortable. Heart rate is improved into the 80s. I had initially ordered nitro topically as his pressure was in the 170s over 1 teens. He declined this stating it typically drops his blood pressure too much and then he is unable to get dialysis. With easing his breathing, his blood pressure has come down to 110 systolic at most recent check. CBC reveals a white count of 8.6 with a hemoglobin of 11.1. 71% neutrophils noted. Chemistry studies reveal a BUN of 50 and a creatinine of six 8.68. Potassium is 4.5. Troponin is 59 and BNP is greater than 5000. Portable chest x-ray per my interpretation reveals mild CHF. Radiology interpretation reviewed and agrees. EKG is sinus tachycardia with no evidence of ischemia. 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 He will arrange to get the patient dialyzed. I hospitalist on page. Family also asked that I speak with Dr. Palomo, his cook 3 pastry given his aortic stenosis. I am awaiting a callback at this time. I did explain to the family that even if we do need to transfer him given his aortic stenosis, he needs dialyzed initially to get the fluid off. They voiced understanding and agreement. Discharge Plan Triage Chief Complaint: Shortness of Breath ED Provider: Yocasta Marx Dx/Rx/DC Orders Clinical Impression: CHF (congestive heart failure), Aortic stenosis, Respiratory failure Prescriptions: No Action acetaminophen 500 MG tablet 500 mg PO DAILY calcium acetate(phosphat bind) 667 mg capsule 2,668 mg PO TID Rx Instructions: TAKE 4 CAPSULES BY MOUTH THREE TIMES DAILY WITH MEALS. carvedilol 6.25 mg tablet 6.25 mg PO BID Patient Comments: CRISTOBALHSKailyn NO MORNING DOSE TAKEN Nephro-Christiano 0.8 mg tablet 1 tab PO DAILY Rx Instructions: TAKE 1 TABLET BY MOUTH EVERY DAY (ON DIALYSIS DAYS, TAKE AFTER DIALYSIS TREATMENT) cyanocobalamin (vitamin B-12) [Vitamin B-12] 1,000 mcg tablet 1,000 mcg PO DAILY pantoprazole 40 mg tablet,delayed release (DR/EC) 40 mg PO BIDCM 90 Days Qty: 90 1RF sucralfate 1 gram tablet 1 g PO BID 90 Days Qty: 180 0RF Primary Care Provider: Bekah Washington Referrals: Bekah Washington MD [Primary Care Provider] - Disposition Disposition: Acute Care Hospital [facility]
--- NOTE | 2024-03-10 07:52 | RAD_ITS ---
STUDY: X-RAY CHEST REASON FOR EXAM: Male, 68 years old. Shortness of breath. TECHNIQUE: Single AP portable view of the chest. COMPARISON: Comparison is made with prior study February 02, 2024. FINDINGS: EKG electrodes are seen. Surgical clips are seen in the right axilla. Mild degree of vascular congestion. Increased markings at the lung bases suggestive of bibasilar atelectasis. There is no demonstrated pleural abnormality. Normal size heart. Normal mediastinum and cirilo. Normal visualized pulmonary arteries. Normal visualized aortic arch and descending thoracic aorta. There are diffuse degenerative changes of the visualized thoracic spine. Normal visualized ribs, clavicles, and shoulders. There is no demonstrated abnormality of the visualized soft tissue structures of the upper abdomen. RAD/Chest 1 View (Portable) IMPRESSION: Findings suggestive of vascular congestion mild CHF with bibasilar atelectasis. Electronically Signed: Pierce Kuhn MD at 8:29 EDT ,
[2024-03-10 07:56] LABS: Absolute Lymphocyte Count 1.38 X10^3/uL (0.83-4.51); Absolute Neutrophil Count 6.1 X10^3/uL (2.0-7.7); Basophil# 0.08 X10^3/uL; Basophil% 0.9 % (0-1); Eosinophil# 0.17 X10^3/uL; Hematocrit 38.1 % (40-54); Hemoglobin 11.1 g/dL (13.0-16.5); Lymphocyte # 1.38 X10^3/ul (0.83-4.51); Mean Corp Hgb Conc 29.1 g/dL (32-36); Mean Corpuscular Hgb 26.9 pg (27.0-32.0); Mean Corpuscular Volume 92.5 fL (80-94); Mean Platelet Vol. 11.8 fl (6.2-12.0); Monocyte# 0.83 X10^3/uL; Monocyte% 9.6 % (0-10); NRBC Flagged by Analyzer 0 % (0-5); Neutrophil # 6.12 X10^3/uL (2.7-7.7); POSITIVE MORPHOLOGY YES; Platelet Count 250 K/mm3 (150-450); RBC Distribution Width CV 20.9 % (11.6-14.6); RBC Distribution Width SD 65.6 fl (35.1-43.9); Red Blood Count 4.12 M/mm3 (4.6-6.2); White Blood Count 8.6 K/mm3 (4.4-11.0)
[2024-03-10 08:03] LABS: Differential Indicated SCAN CRITERIA MET
[2024-03-10 08:10] LABS: Anion Gap 14 (5-15); BUN 50 mg/dL (7-18); BUN/Creat Ratio 5.8 RATIO (10-20); Calcium,Total 9.3 mg/dL (8.5-10.1); Chloride 96 mmol/L (98-107); Creatinine, Serum 8.68 mg/dL (0.70-1.30); EST Glomerular Filtration Rate 7 mL/min (>60); Est Glom Filt Rate - Afr Amer 8 mL/min (>60); Estimated Creatinine Clearance 9.33 ml/min; Glucose 211 mg/dL (74-106); Potassium 4.5 mmol/L (3.5-5.1); Sodium Level 134 mmol/L (136-145); Troponin-I HS 59 pg/mL (3.0-78.0)
[2024-03-10 08:28] LABS: BNP,B-Type NATRIURETIC PEPTIDE > 5000.0 pg/mL (0-100)
[2024-03-10 08:30] LABS: Anisocytosis 2+; Differential Comment SCANNED; Macrocytosis 1+; Microcytosis 1+
--- NOTE | 2024-03-10 09:07 | PCM.HP.STD ---
HPI - General General Date of Admission: 03/10/24 Date of Service: 03/10/24 Chief Complaint: Shortness of breath HPI Narrative BINDU DUMONT, is a 68 M with past medical history signal for end-stage renal disease on hemodialysis Tuesdays and Saturdays who presented with shortness of breath. Patient symptoms started suddenly on the morning of his admission. He also did notice swelling involving both lower extremities. In view of worsening symptoms patient presented to the emergency department. Chest x-ray obtained did show findings suggestive of vascular congestion mild CHF with bibasilar atelectasis. 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 [facility] Medical History Acute on chronic anemia Acute upper GI bleed Anemia Back pain Bursitis Cardiac disease Cardiology follow-up encounter Chronic anemia Chronic renal failure Dialysis patient Dietary restriction DVT (deep venous thrombosis) End stage renal disease on dialysis Generalized weakness Hepatitis History of diverticulitis History of echocardiogram History of end stage renal disease History of renal dialysis History of renal disease History of steroid therapy History of ulceration Hypertension Kidney failure due to vascular disorder Low iron Lymphedema Migraine headache Problem with dialysis access Rectal bleeding 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 hyperparathyroidism Shortness of breath on exertion Smoker Subclavian aneurysm Wears glasses Home Medications acetaminophen 500 mg tablet 500 mg PO BID PAIN 11/21/19 [History Last Taken 02/10/24] calcium acetate(phosphat bind) 667 mg capsule 2,668 mg PO TID PHOSPHATE LEVELS 12/12/23 [History Last Taken 02/09/24] vitamin B complex-vitamin C-folic acid 0.8 mg tablet (Nephro-Christiano) 1 tab PO DAILY RENAL HEALTH 12/12/23 [History Last Taken 02/09/24] cyanocobalamin (vitamin B-12) 1,000 mcg tablet (Vitamin B-12) 1,000 mcg PO DAILY supplement 01/12/24 [History Last Taken 02/09/24] epoetin beta, methoxy peg .ROUTE anemia 03/10/24 [History Last Taken Unknown] metoprolol succinate 25 mg tablet,extended release 24 hr 25 mg PO QHS blood pressure 03/10/24 [History Last Taken Unknown] Allergy/AdvReac Type Severity Reaction Status Date / Time No Known Allergies Allergy Verified 02/15/24 13:28 Family History Other Cancer Diabetes Heart disease Surgical History History of bicuspid aortic valve History of esophagogastroduodenoscopy (EGD) History of umbilical hernia Hx of arteriovenostomy for renal dialysis (~12/2019) Hx of colonoscopy with polypectomy S/P knee surgery s/p subclavian graft Status post insertion of dialysis catheter (~11/2019) Social History household members: spouse housing: house Smoking Status: Current every day smoker tobacco type: cigarettes alcohol intake: never substance use type: does not use ROS ROS Narrative GENERAL: denies fever, chills, night sweats, weight loss, anorexia HEENT: denies headache, sinus congestion, or drainage, dysphagia RESPIRATORY: shortness of breath, dyspnea on exertion CARDIAC: denies chest pain, palpitations, orthopnea, PND GASTROINTESTINAL: denies abdominal pain, nausea, vomiting, melena, GENITOURINARY: denies dysuria, urgency, frequency, heamaturia EXTREMITY: denies swelling MUSCULOSKELETAL: denies current joint pain or tenderness NEUROLOGIC: denies focal numbness, weakness, tingling HEMATOLOGIC: denies easy bruising and/or hemorrhage INTEGUMENT: denies rashes PSYCHIATRIC: denies suicidal or homicidal ideation Vital Signs Vital Signs Vital Signs: 03/10/24 07:26 03/10/24 07:34 03/10/24 07:26 Temperature 98.8 F 98.8 F 98.8 F Temperature Source Oral Oral Oral Pulse Rate 119 H 117 H 115 H Respiratory Rate 20 H 19 H 21 H Respiratory Effort Respiratory Depth Respiratory Pattern Blood Pressure 171/111 H 171/111 H 171/111 H Blood Pressure Mean 131 131 131 Pulse Ox 97 97 97 Oxygen Delivery Method Nasal Cannula Nasal Cannula Bi-pap Oxygen Flow Rate (L/min) 4 4 Fraction of Inspired Oxygen (FIO2) 03/10/24 07:38 03/10/24 07:37 03/10/24 08:21 Temperature Temperature Source Pulse Rate 117 H 86 Respiratory Rate 20 H 20 H Respiratory Effort Short of Breath Head [place] Respiratory Depth Normal Respiratory Pattern Tachypnea Blood Pressure 94/67 Blood Pressure Mean 76 Pulse Ox 97 97 Oxygen Delivery Method Nasal Cannula Bi-pap Oxygen Flow Rate (L/min) 4 Fraction of Inspired Oxygen (FIO2) 30 Weight Weight: 93 kg Body Mass Index (BMI) 29.4 Physical Exam Narrative GENERAL: cooperative HEENT: Atraumatic; normocephalic EYES; Anicteric, Normal Conjunctiva NECK; supple, normal thyroid, RESPIRATORY: Diminished to auscultation CARDIOVASCULAR: Regular S1 S2, GI: soft, normoactive bowel sounds, : No Renal angle tenderness; EXTREMITIES: edema, no clubbing, MUSCULOSKELETAL: no muscle wasting NEURO: Awake; no lateralizing signs. SKIN: No Rash PSYCH; Flat affect Results Lab / Micro Data 03/10/24 07:38 03/10/24 07:38 Labs: Laboratory Results - last 24 hr 03/10/24 07:38: WBC 8.6, RBC 4.12 L, Hgb 11.1 L, Hct 38.1 L, MCV 92.5, MCH 26.9 L, MCHC 29.1 L, RDW Std Deviation 65.6 H, RDW Coeff of Brynn 20.9 H, Plt Count 250, MPV 11.8, Immature Gran % (Auto) 0.500, Neut % (Auto) 71.0 H, Lymph % (Auto) 16.0 L, [place] % (Auto) 9.6, Eos % (Auto) 2.0, Baso % (Auto) 0.9, Absolute Neuts (auto) 6.1, Absolute Lymphs (auto) 1.38, Nucleated RBC % 0, Differential Comment SCANNED, Anisocytosis 2+, Microcytosis 1+, Macrocytosis 1+, Sodium 134 L, Potassium 4.5, Chloride 96 L, Carbon Dioxide 24.0, Anion Gap 14, BUN 50 H, Creatinine 8.68 H*, Estim Creat Clear Calc 9.33, Est GFR (MDRD) Af Amer 8 L, Est GFR (MDRD) Non-Af 7 L, BUN/Creatinine Ratio 5.8 L, Glucose 211 H, Calcium 9.3, Troponin I High Sens 59, B-Natriuretic Peptide > 5000.0 H Imaging Radiology Impression Chest X-Ray 03/10/24 07:52 IMPRESSION: Findings suggestive of vascular congestion mild CHF with bibasilar atelectasis. Electronically Signed: Pierce Kuhn MD at 8:29 EDT , Assessment & Plan Assessment/Plan (1) CHF (congestive heart failure): QUALIFIERS: Heart failure type: systolic Heart failure chronicity: acute on chronic Qualified Code(s): I50.23 - Acute on chronic systolic (congestive) heart failure PLAN: Plan Patient is a 68-year-old gentleman with multiple comorbidities including end-stage renal disease on hemodialysis presented with progressive generalized shortness of breath. Diagnosed with acute congestive heart failure admitted to monitored bed for further management 1. Acute on chronic congestive heart failure with reduced ejection fraction ? Recent echo on 03/02/2024 demonstrated EF of 40%. Patient has been admitted to a monitored bed placed on strict input and output Daily weight low-sodium diet with consultation placed to nephrology for dialysis to manage patient fluid overload status 2. End-stage renal disease ? Patient on hemodialysis consult placed to nephrology for dialysis orders 3. Hypertension - Blood pressure controlled, home medications continued with dose adjustment as needed 4. GERD ? On PPI 5. Anemia - Secondary to chronic disorder/ESRD monitoring H&H and transfuse if patient becomes symptomatic or hemoglobin falls below 7 6. Mild hyponatremia Secondary to ESRD monitor with daily BMP 7. History of oozing duodenal ulcers ? Based on EGD performed on 12/14/2023. Patient was discharged on PPI as well as sacral 8. DVT prophylaxis ? SC heparin Time spent in the patient's overall evaluation,decision-making process, review of diagnostic data, adjustment of management, discussion with other providers, nursing nursing and ancillary staff involved in patient's care documentation, 75 Minutes Advance planning; did discuss with the patient and family regarding advanced directives as well as CODE STATUS. Did explain the various scenarios involved ( FULL CODE, DNR CCA, DNR CCA with no intubation, and DNR CC and what each meant) patient elected to to remain full code with CPR intubation if needed. Order was placed. Time spent on discussion 16 minutes. Charges/Coding Visit Charges Inpatient E&M: 38781 Init Hosp L3 Procedures Hospitalists Procedures: 58299 Advncd Care Plan 30 Min
--- NOTE | 2024-03-10 09:30 | ED.RN ---
pt off bipap per request and [facility] at 2l
--- NOTE | 2024-03-10 10:51 | CON.PCM.RE_ITS ---
Assessment & Plan Assessment/Plan (1) ESRD (end stage renal disease) on dialysis: PLAN: Plan This is a 68-year-old male with past medical history significant for ESRD on hemodialysis Thursday schedule who presented to the emergency room with sudden onset shortness of breath. Admitted for acute on chronic decompensated heart failure with history of reduced EF (echo on 03/02/2024 demonstrated EF 40%, left atrium mildly enlarged, unable to assess diastolic dysfunction, moderate mitral valve insufficiency, severe aortic stenosis, mild to moderate aortic valve insufficiency). Nephrology consulted as patient has history of ESRD requiring hemodialysis. Will plan for dialysis today over arou nd 4 hours and aim for ~3 L fluid removal but if patient is tolerating dialysis with no cramping or hypotension then we will try to increase fluid removal amount during dialysis. Will evaluate for dialysis needs tomorrow. Likely patient's dry weight will be lowered during hospitalization. His current outpatient EDW is 89 kg. Patient's breathing has already improved and he is now on nasal cannula. Patient has a history of congestive heart failure, aortic valve insufficiency and has been following with cardiology with possible plans for cardiac cath and TAVR in near future. Patient has history of recurrent GI bleeding and has had multiple hospitalizations over the past few months requiri ng EGDs and colonoscopy. Hemoglobin today is 11.1. Patient received Mircera 225 mcg at [facility] on March 05. He is also receiving Venofer. Will monitor hemoglobin trends. Further orders forthcoming as hospitalization evolves, thank you for allowing us to participate in the care of Mr. Dumont. HPI Consult Data Date of Consult: 03/10/24 HPI Narrative HPI Narrative: BINDU DUMONT, is a 68 M with past medical history significant for ESRD on hemodialysis at [facility] Thursday schedule, last dialyzed Thursday who presented emergency room this morning with complaints of difficulty breathing. Chest x-ray emergency room showed vascular congestion and mild CHF with bibasilar atelectasis, patient was initially placed on BiPAP therapy. He was admitted for further evaluation and treatment. Nephrology consulted as patient has history of end-stage renal disease requiring hemodialysis. Patient is compliant with his dialysis sessions and normally does not have large fluid gains. He last dialyzed on Thursday. [facility] Medical History Acute on chronic anemia Acute upper GI bleed Anemia Back pain Bursitis Cardiac disease Cardiology follow-up encounter Chronic anemia Chronic renal failure Dialysis patient Dietary restriction DVT (deep venous thrombosis) End stage renal disease on dialysis Generalized weakness Hepatitis History of diverticulitis History of echocardiogram History of end stage renal disease History of renal dialysis History of renal disease History of steroid therapy History of ulceration Hypertension Kidney failure due to vascular disorder Low iron Lymphedema Migraine headache Problem with dialysis access Rectal bleeding 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 hyperparathyroidism Shortness of breath on exertion Smoker Subclavian aneurysm Wears glasses Home Medications acetaminophen 500 mg tablet 500 mg PO BID PAIN 11/21/19 [History Last Taken 02/10/24] calcium acetate(phosphat bind) 667 mg capsule 2,668 mg PO TID PHOSPHATE LEVELS 12/12/23 [History Last Taken 02/09/24] vitamin B complex-vitamin C-folic acid 0.8 mg tablet (Nephro-Christiano) 1 tab PO DAILY RENAL HEALTH 12/12/23 [History Last Taken 02/09/24] cyanocobalamin (vitamin B-12) 1,000 mcg tablet (Vitamin B-12) 1,000 mcg PO DAILY supplement 01/12/24 [History Last Taken 02/09/24] epoetin beta, methoxy peg .ROUTE anemia 03/10/24 [History Last Taken Unknown] metoprolol succinate 25 mg tablet,extended release 24 hr 25 mg PO QHS blood pressure 03/10/24 [History Last Taken Unknown] Allergy/AdvReac Type Severity Reaction Status Date / Time No Known Allergies Allergy Verified 02/15/24 13:28 Family History Other Cancer Diabetes Heart disease Surgical History History of bicuspid aortic valve History of esophagogastroduodenoscopy (EGD) History of umbilical hernia Hx of arteriovenostomy for renal dialysis (~12/2019) Hx of colonoscopy with polypectomy S/P knee surgery s/p subclavian graft Status post insertion of dialysis catheter (~11/2019) Social History household members: spouse housing: house Smoking Status: Current every day smoker tobacco type: cigarettes alcohol intake: never substance use type: does not use ROS ROS Narrative As in HPI and past medical history Physical Exam Narrative Alert and orient x 3, no apparent distress S1, S2, RRR Diminished breath sounds with faint rales abdomen soft, nontender Edema bilateral lower legs AVF left FA +thrill and bruit Lab / Micro Data 03/10/24 07:38 03/10/24 07:38 Labs: Laboratory Results - last 24 hr 03/10/24 07:38: WBC 8.6, RBC 4.12 L, Hgb 11.1 L, Hct 38.1 L, MCV 92.5, MCH 26.9 L, MCHC 29.1 L, RDW Std Deviation 65.6 H, RDW Coeff of Brynn 20.9 H, Plt Count 250, MPV 11.8, Immature Gran % (Auto) 0.500, Neut % (Auto) 71.0 H, Lymph % (Auto) 16.0 L, [place] % (Auto) 9.6, Eos % (Auto) 2.0, Baso % (Auto) 0.9, Absolute Neuts (auto) 6.1, Absolute Lymphs (auto) 1.38, Nucleated RBC % 0, Differential Comment SCANNED, Anisocytosis 2+, Microcytosis 1+, Macrocytosis 1+, Sodium 134 L , Potassium 4.5, Chloride 96 L, Carbon Dioxide 24.0, Anion Gap 14, BUN 50 H, Creatinine 8.68 H*, Estim Creat Clear Calc 9.33, Est GFR (MDRD) Af Amer 8 L, Est GFR (MDRD) Non-Af 7 L, BUN/Creatinine Ratio 5.8 L, Glucose 211 H, Calcium 9.3, Troponin I High Sens 59, B-Natriuretic Peptide > 5000.0 H Imaging Radiology Impression Chest X-Ray 03/10/24 07:52 IMPRESSION: Findings suggestive of vascular congestion mild CHF with bibasilar atelectasis. Electronically Signed: Pierce Kuhn MD at 8:29 EDT ,
[2024-03-10] MEDS: 0.9% Normal Saline 1,000 ML IV.SOLN. 1000 ML OPERA.SITE (11:18)
[2024-03-10] MEDS: PureFlow B 2K Dialysis Soln 1 BAG 6 BAG PF (11:18)
[2024-03-10 12:20] LABS: Troponin-I HS 203 pg/mL (3.0-78.0)
[2024-03-10 13:35] LABS: Troponin-I HS 231 pg/mL (3.0-78.0)
[2024-03-10] MEDS: Calcium Acetate 667 MG Capsule 2668 MG PO (15:31)
[2024-03-10] MEDS: Metoprolol(XL)Succ 25 MG Tablet PO (22:12)
[2024-03-11 03:00] VITALS: BP 125/90; PULSE 77; RESP 18; TEMP 35.8; O2SAT 99
[2024-03-11 06:00] VITALS: BMI 27.8
[2024-03-11 06:28] LABS: Absolute Lymphocyte Count 1.14 X10^3/uL (0.83-4.51); Absolute Neutrophil Count 4.4 X10^3/uL (2.0-7.7); Basophil# 0.05 X10^3/uL; Basophil% 0.8 % (0-1); Eosinophil# 0.12 X10^3/uL; Eosinophils% 1.8 % (0-5); Hematocrit 34.1 % (40-54); Hemoglobin 9.9 g/dL (13.0-16.5); Lymphocyte # 1.14 X10^3/ul (0.83-4.51); Lymphocyte % 17.4 % (19-41); Mean Corpuscular Hgb 26.8 pg (27.0-32.0); Mean Corpuscular Volume 92.2 fL (80-94); Mean Platelet Vol. 11.6 fl (6.2-12.0); Monocyte# 0.87 X10^3/uL; Monocyte% 13.3 % (0-10); NRBC Flagged by Analyzer 0 % (0-5); Neutrophil # 4.36 X10^3/uL (2.7-7.7); Neutrophil % 66.4 % (47-70); POSITIVE MORPHOLOGY YES; Platelet Count 187 K/mm3 (150-450); RBC Distribution Width CV 20.9 % (11.6-14.6); RBC Distribution Width SD 66.2 fl (35.1-43.9); White Blood Count 6.6 K/mm3 (4.4-11.0)
[2024-03-11 06:40] LABS: Differential Indicated SCAN CRITERIA MET
[2024-03-11 06:58] VITALS: O2SAT 95
--- NOTE | 2024-03-11 07:24 | PN.HOSP_ITS ---
Reason for Visit Reason for Visit: Diagnoses Acute on chronic systolic (congestive) heart failure (03/10/24) Objective Data Objective Data Vital Signs: Vital Signs Temp Pulse Resp BP Pulse Ox O2 Del Method O2 Flow Rate 96.5 F L 77 18 125/90 H 99 Room Air 2 03/11/24 03:00 03/11/24 03:00 03/11/24 03:00 03/11/24 03:00 03/11/24 03:00 03/11/24 03:00 03/10/24 15:08 FiO2 30 03/10/24 07:37 Oxygen Flow Rate (L/min) 2 Oxygen Delivery Method Room Air Weight: 88.4 kg Body Mass Index (BMI) 27.8 Intake & Output: Intake and Output for Last 24 Hours 03/09/24 03/10/24 03/11/24 23:59 23:59 23:59 Intake Total 850 / 1090 240 / 240 Output Total 3200 / 3200 Balance -2350 / -2110 240 / 240 Lab / Micro Data 03/11/24 05:35 03/11/24 05:35 Labs: Laboratory Results - last 24 hr 03/10/24 07:38: WBC 8.6, RBC 4.12 L, Hgb 11.1 L, Hct 38.1 L, MCV 92.5, MCH 26.9 L, MCHC 29.1 L, RDW Std Deviation 65.6 H, RDW Coeff of Brynn 20.9 H, Plt Count 250, MPV 11.8, Immature Gran % (Auto) 0.500, Neut % (Auto) 71.0 H, Lymph % (Auto) 16.0 L, [place] % (Auto) 9.6, Eos % (Auto) 2.0, Baso % (Auto) 0.9, Absolute Neuts (auto) 6.1, Absolute Lymphs (auto) 1.38, Nucleated RBC % 0, Differential Comment SCANNED, Anisocytosis 2+, Microcytosis 1+, Macrocytosis 1+, Sodium 134 L , Potassium 4.5, Chloride 96 L, Carbon Dioxide 24.0, Anion Gap 14, BUN 50 H, Creatinine 8.68 H*, Estim Creat Clear Calc 9.33, Est GFR (MDRD) Af Amer 8 L, Est GFR (MDRD) Non-Af 7 L, BUN/Creatinine Ratio 5.8 L, Glucose 211 H, Calcium 9.3, Troponin I High Sens 59, B-Natriuretic Peptide > 5000.0 H 03/10/24 11:30: Troponin I High Sens 203 H* 03/10/24 13:05: Troponin I High Sens 231 H* 03/11/24 05:35: WBC 6.6, RBC 3.70 L, Hgb 9.9 L, Hct 34.1 L, MCV 92.2, MCH 26.8 L , MCHC 29.0 L, RDW Std Deviation 66.2 H, RDW Coeff of Brynn 20.9 H, Plt Count 187, MPV 11.6, Immature Gran % (Auto) 0.300, Neut % (Auto) 66.4, Lymph % (Auto) 17.4 L, [place] % (Auto) 13.3 H, Eos % (Auto) 1.8, Baso % (Auto) 0.8, Absolute Neuts (auto) 4.4, Absolute Lymphs (auto) 1.14, Nucleated RBC % 0 Radiography Diagnostic Testing: Radiology Impression Chest X-Ray 03/10/24 07:52 IMPRESSION: Findings suggestive of vascular congestion mild CHF with bibasilar atelectasis. Electronically Signed: Pierce Kuhn MD at 8:29 EDT , Physical Exam Narrative GENERAL: cooperative HEENT: Atraumatic; normocephalic EYES; Anicteric, Normal Conjunctiva NECK; supple, normal thyroid, RESPIRATORY: Diminished to auscultation CARDIOVASCULAR: Regular S1 S2, GI: soft, normoactive bowel sounds, : No Renal angle tenderness; EXTREMITIES: edema, no clubbing, MUSCULOSKELETAL: no muscle wasting NEURO: Awake; no lateralizing signs. SKIN: No Rash PSYCH; Flat affect Assessment & Plan Assessment/Plan (1) CHF (congestive heart failure): QUALIFIERS: Heart failure chronicity: acute on chronic Heart failure type: systolic Qualified Code(s): I50.23 - Acute on chronic systolic (congestive) heart failure PLAN: Plan Patient is a 68-year-old gentleman with multiple comorbidities including end- stage renal disease on hemodialysis presented with progressive generalized shortness of breath. Diagnosed with acute congestive heart failure admitted to monitored bed for further management 1. Acute on chronic congestive heart failure with reduced ejection fraction ? Recent echo on 03/02/2024 demonstrated EF of 40%. Patient has been admitted to a monitored bed placed on strict input and output Daily weight low-sodium diet with consultation placed to nephrology for dialysis to manage patient fluid overload status The estimated ejection fraction is 40 %. There is moderate global hypokinesis of the left ventricle. The left atrium is mildly enlarged. Unable to assess diastolic dysfunction. Moderate (2+) mitral valve insufficiency. Severe aortic stenosis. Mild-Moderate (1-2+) aortic valve insufficiency. 2. End-stage renal disease ? Patient on hemodialysis consult placed to nephrology for dialysis orders 3.valvular heart disease ? Recent 2D echo demonstrated severe stenosis patient has been referred to [facility] for subsequent evaluation 4. Hypertension - Blood pressure controlled, home medications continued with dose adjustment as needed 5. Anemia - Secondary to chronic disorder/ESRD monitoring H&H and transfuse if patient becomes symptomatic or hemoglobin falls below 7 6. Mild hyponatremia Secondary to ESRD monitor with daily BMP 7. History of oozing duodenal ulcers ? Based on EGD performed on 12/14/2023. Patient was discharged on PPI as well as sacral 8. GERD ? On PPI 9. DVT prophylaxis ? SC heparin patient however declined citing his recent GI bleed Time spent in the patient's overall evaluation,decision-making process, review of diagnostic data, adjustment of management, discussion with other providers, nursing nursing and ancillary staff involved in patient's care documentation, 50 Minutes Charges/Coding Visit Charges Inpatient E&M: 07329 [facility] Hosp L3
[2024-03-11 07:44] LABS: Anisocytosis 2+; Differential Comment SCANNED; Polychromasia 1+
[2024-03-11 08:29] LABS: Anion Gap 8 (5-15); BUN 49 mg/dL (7-18); BUN/Creat Ratio 6.2 RATIO (10-20); Calcium,Total 9.4 mg/dL (8.5-10.1); Chloride 97 mmol/L (98-107); Creatinine, Serum 7.88 mg/dL (0.70-1.30); EST Glomerular Filtration Rate 7 mL/min (>60); Est Glom Filt Rate - Afr Amer 9 mL/min (>60); Estimated Creatinine Clearance 10.05 ml/min; Glucose 90 mg/dL (74-106); Magnesium 2.9 mg/dL (1.6-2.6); Phosphorus 4.5 mg/dL (2.5-4.9); Potassium 4.6 mmol/L (3.5-5.1); Sodium Level 135 mmol/L (136-145)
[2024-03-11 09:33] VITALS: BP 118/85; PULSE 82; RESP 14; TEMP 36.9; O2SAT 96
[2024-03-11] MEDS: Calcium Acetate 667 MG Capsule 2668 MG PO (09:39)
[2024-03-11] MEDS: Folic Acid/Vitamin B Comp W-C 1 Capsule 1 CAP PO (09:39)
[2024-03-11] MEDS: Cyanocobalamin 500 MCG Tablet 1000 MCG PO (09:39)
--- NOTE | 2024-03-11 09:39 | PCM.DC.SUM ---
Providers Date of Admission: 03/10/24 Date of Discharge: 03/11/24 Primary Care Physician: Dr. Bekah Washington MD Reason For Visit: CHF Diagnosis Discharge Diagnosis (1) CHF (congestive heart failure): Status: Acute Code(s): I50.9 - Heart failure, unspecified Qualifiers: Heart failure type: systolic Heart failure chronicity: acute on chronic Qualified Code(s): I50.23 - Acute on chronic systolic (congestive) heart failure Plan Patient is a 68-year-old gentleman with multiple comorbidities including end-stage renal disease on hemodialysis presented with progressive generalized shortness of breath. Diagnosed with acute congestive heart failure admitted to monitored bed for further management 1. Acute on chronic congestive heart failure with reduced ejection fraction ? Recent echo on 03/02/2024 demonstrated EF of 40%. Patient has been admitted to a monitored bed placed on strict input and output Daily weight low-sodium diet with consultation placed to nephrology for dialysis to manage patient fluid overload status The estimated ejection fraction is 40 %. There is moderate global hypokinesis of the left ventricle. The left atrium is mildly enlarged. Unable to assess diastolic dysfunction. Moderate (2+) mitral valve insufficiency. Severe aortic stenosis. Mild-Moderate (1-2+) aortic valve insufficiency. 03/11/2024; patient clinical condition did improve following his dialysis. Plan is for patient to have been monitored for 1 additional day he however requested to be discharged. His clinical condition did improve much faster than expected 2. End-stage renal disease ? Patient on hemodialysis consult placed to nephrology for dialysis orders 3.valvular heart disease ? Recent 2D echo demonstrated severe stenosis patient has been referred to [facility] for subsequent evaluation 4. Hypertension - Blood pressure controlled, home medications continued with dose adjustment as needed 5. Anemia - Secondary to chronic disorder/ESRD monitoring H&H and transfuse if patient becomes symptomatic or hemoglobin falls below 7 6. Mild hyponatremia Secondary to ESRD monitor with daily BMP 7. History of oozing duodenal ulcers ? Based on EGD performed on 12/14/2023. Patient was discharged on PPI as well as sacral 8. GERD ? On PPI 9. DVT prophylaxis ? SC heparin patient however declined citing his recent GI bleed Time spent in the patient's overall evaluation,decision-making process, review of diagnostic data, adjustment of management, discussion with other providers, nursing nursing and ancillary staff involved in patient's care documentation, 50 Minutes Medications at Discharge Home Medications acetaminophen 500 mg tablet 500 mg PO BID PAIN 11/21/19 calcium acetate(phosphat bind) 667 mg capsule 2,668 mg PO TID PHOSPHATE LEVELS 12/12/23 vitamin B complex-vitamin C-folic acid 0.8 mg tablet (Nephro-Christiano) 1 tab PO DAILY RENAL HEALTH 12/12/23 cyanocobalamin (vitamin B-12) 1,000 mcg tablet (Vitamin B-12) 1,000 mcg PO DAILY supplement 01/12/24 epoetin beta, methoxy peg .ROUTE anemia 03/10/24 metoprolol succinate 25 mg tablet,extended release 24 hr 25 mg PO QHS blood pressure 03/10/24 Physical Exam Narrative GENERAL: cooperative HEENT: Atraumatic; normocephalic EYES; Anicteric, Normal Conjunctiva NECK; supple, normal thyroid, RESPIRATORY: Diminished to auscultation CARDIOVASCULAR: Regular S1 S2, GI: soft, normoactive bowel sounds, : No Renal angle tenderness; EXTREMITIES: edema, no clubbing, MUSCULOSKELETAL: no muscle wasting NEURO: Awake; no lateralizing signs. SKIN: No Rash PSYCH; Flat affect Weight / BMI Weight Weight: 88.4 kg Body Mass Index (BMI) 27.8 ABG / Lab / Microbiology Data 03/11/24 05:35 03/11/24 05:35 Laboratory: Laboratory Results - last 24 hr 03/10/24 11:30: Troponin I High Sens 203 H* 03/10/24 13:05: Troponin I High Sens 231 H* 03/11/24 05:35: WBC 6.6, RBC 3.70 L, Hgb 9.9 L, Hct 34.1 L, MCV 92.2, MCH 26.8 L, MCHC 29.0 L, RDW Std Deviation 66.2 H, RDW Coeff of Brynn 20.9 H, Plt Count 187, MPV 11.6, Immature Gran % (Auto) 0.300, Neut % (Auto) 66.4, Lymph % (Auto) 17.4 L, [place] % (Auto) 13.3 H, Eos % (Auto) 1.8, Baso % (Auto) 0.8, Absolute Neuts (auto) 4.4, Absolute Lymphs (auto) 1.14, Nucleated RBC % 0, Differential Comment SCANNED, Polychromasia 1+, Anisocytosis 2+, Sodium 135 L, Potassium 4.6, Chloride 97 L, Carbon Dioxide 30.0, Anion Gap 8, BUN 49 H, Creatinine 7.88 H*, Estim Creat Clear Calc 10.05, Est GFR (MDRD) Af Amer 9 L, Est GFR (MDRD) Non-Af 7 L, BUN/Creatinine Ratio 6.2 L, Glucose 90, Calcium 9.4, Phosphorus 4.5, Magnesium 2.9 H D/C Instructions Discharge Diet: 8 Cup Fluid Restriction, 2000 mg Sodium Diet and Renal Diet Discharge Activity: Return to Normal Activity Call your doctor if you observe: Fever of 101 or Higher, Shortness of breath, Fainting spells and Chest pain Meaningful Use Info Meaningful Use Meaningful Use Diagnoses (Choose all that apply): CHF CHF CHELA/ARB ordered at discharge?: Yes Reason CHELA/ARB not ordered?: Severe aortic stenosis and Worsening renal disease Documented LVEF (%): 40 Ischemic Stroke Statin Dosing Therapy Reference: STATIN DOSE THERAPY REFERENCE: * Patients > 75 years receive moderate or high dose statin therapy. * Patients 75 years or YOUNGER should receive HIGH intensity statin dose unless contraindicated. You will be required to document reason for non-treatment if statin daily dose does not meet guidelines. HIGH DOSE STATIN THERAPY DAILY Atorvastatin > than or = to 40 mg Rosuvastatin > than or = to 20 mg Amlodipine + Atorvastatin > than or = to 2.5/40 mg Ezetimibe + Simvastatin 10/80 mg Simvastatin 80mg Discharge Plan Admission Admit Date/Time: 03/10/24 09:08 Attending Provider: Landon Carmen Primary Care Provider: Bekah Washington Discharge Orders/Prescriptions Prescriptions: Continued acetaminophen 500 MG tablet 500 mg PO BID calcium acetate(phosphat bind) 667 mg capsule 2,668 mg PO TID Rx Instructions: TAKE 4 CAPSULES BY MOUTH THREE TIMES DAILY WITH MEALS. Nephro-Christiano 0.8 mg tablet 1 tab PO DAILY Rx Instructions: TAKE 1 TABLET BY MOUTH EVERY DAY (ON DIALYSIS DAYS, TAKE AFTER DIALYSIS TREATMENT) cyanocobalamin (vitamin B-12) [Vitamin B-12] 1,000 mcg tablet 1,000 mcg PO DAILY metoprolol succinate 25 mg tablet extended release 24 hr 25 mg PO QHS epoetin beta, methoxy peg [Mircera] .ROUTE Rx Instructions: pt gets every 10days at dialysis. Referrals / Follow Up: Aric Palomo MD [Med Staff - Active Staff] - Within 2 Weeks Bekah Washington MD [Primary Care Provider] - Disposition Disposition (needs filled in before D/C Order can be placed): Home, Self Care Charges/Coding Visit Charges Inpatient E&M: 16311 Disch Hosp >30min
--- NOTE | 2024-03-11 09:57 | PHA.DC.MR.R ---
Pharmacy [place] Med Reconciliation Pharmacy Service has performed discharge medication reconciliation for this patient. The patient's discharge medication list was reviewed for discrepancies and discrepancies were resolved. Medications at Discharge Home Medications acetaminophen 500 mg tablet 500 mg PO BID PAIN 11/21/19 calcium acetate(phosphat bind) 667 mg capsule 2,668 mg PO TID PHOSPHATE LEVELS 12/12/23 vitamin B complex-vitamin C-folic acid 0.8 mg tablet (Nephro-Christiano) 1 tab PO DAILY RENAL HEALTH 12/12/23 cyanocobalamin (vitamin B-12) 1,000 mcg tablet (Vitamin B-12) 1,000 mcg PO DAILY supplement 01/12/24 epoetin beta, methoxy peg .ROUTE anemia 03/10/24 metoprolol succinate 25 mg tablet,extended release 24 hr 25 mg PO QHS blood pressure 03/10/24
--- NOTE | 2024-03-11 10:15 | CASEMGMT ---
Addendum entered by Jacob Jimenez 03/11/24 17:25: 10:45 AM: Call placed to [facility] and spoke w/Melissa. She was made aware pt is discharging home today and will return to [facility] tomorrow for OP HD. Original Note: REBECCA REDMOND assessment: RN CM to room to meet with patient for initial transition planning/care coordination assessment. RN CM introduced self and role at [facility]. Patient sitting in chair, alert and oriented. Patient willing to participate in assessment and is able to answer all questions appropriately. Care providers, pharmacy, and demographics verified. Patient wishes to discharge home, denies need for home health at this time. Patient states he has no further needs or concerns at this time. CM to follow for discharge planning needs that may arise. PCP: Dr Washington. Pt states is not pleased w/this PCP and interested in switching PCP's. Provided w/PCP local directory list and he voices appreciation. i Specialists: Rafaela, sample sawyer; Friend, GI; Tadeo, ortho; Stacia, cardio OP HD: Patient goes to OP HD at [facility] on [address], chair time 0915. Preferred Pharmacy: [facility] Retail Insurance: Tanner REILLY Prescription Benefit: yes Living Will/HPOA: Pt states he has not done LW but has done HCPOA, who is his Rohini Joe LNOK: Living Arrangements: Patient lives with in a one- story home w/basement with 2 steps to enter. Pt states he does not have to go to the basement and does okay w/the 2 steps to enter home. Patient states he is independent w/ADL's and manages his own medications. does the laundry and they both do grocery shopping and cooking. Transportation: pt states he drives, but states, not that much. His does most of the driving. DME/HHC: Patient denies DME in the home and denies needs. No previous HHC or SNF. Pt states has the script for OP therapy from prior admission but decided not to go, stating he may be willing to go after he has his valve replacement. He is aware he will need new script for that and aware to f/u with PCP. Plan: Home Gordon JEROME RN, CM
--- NOTE | 2024-03-11 13:22 | CHAPLAIN ---
Type of Pastoral Visit ___ Initial Visit ___ Follow-up Visit ___ On-call Visit ___ General Patient Visit ___ Spiritual Assessment ___ Family Conference ___ Bereavement ___ Rapid Response ___ Code Blue ___ Other (describe below) Pastoral Care Referral From ___ Patient ___ Family ___ Nurse ___ Physician ___ Grinding And Spraying Supervisor ___ Doctor Of Dental Medicine ___ Other (describe below) Sacrament/Intervention ___ Active listening ___ Anointing ___ Temple ___ Bereavement ___ Communion ___ Mee exploration ___ ___ Life review ___ Prayer ___ Reconciliation ___ Sacrament of Sick ___ Supportive presence ___ Wedding ___ Other (describe below) Pastoral Comments patient was being wheeled out for discharge when this curatorial assistant entered the unit
== END 2024-03-11 11:47 | disposition home or self-care (01) | DRG 291 ==
LOC: ED 09:06 → PCU 09:20
PROVIDERS: Admitting Provider Internal Medicine; Emergency Provider Emergency Medicine; PCP Internal Medicine; Visit Provider Internal Medicine
DX: I13.2 Hypertensive heart and chronic kidney disease with heart failure and with stage 5 chronic kidney disease, or end stage renal disease (principal); I50.23 Acute on chronic systolic (congestive) heart failure; N18.6 End stage renal disease; E87.1 Hypo-osmolality and hyponatremia; D63.1 Anemia in chronic kidney disease; I35.0 Nonrheumatic aortic (valve) stenosis; Z99.2 Dependence on renal dialysis; K21.9 Gastro-esophageal reflux disease without esophagitis; F17.210 Nicotine dependence, cigarettes, uncomplicated; Z79.899 Other long term (current) drug therapy; Z87.19 Personal history of other diseases of the digestive system
CPT/HCPCS: 71045; 80048; 83735; 83880; 84100; 84484; 85025; 90937; 93005; 94002; 94668; 99285; J7030; A4216; G0257

== ENCOUNTER 2024-03-14 12:00 | Day surgery (SDC) | payer MEDICARE, BC, SELFPAY ==
[2024-03-11 16:47] VITALS: BMI 29.4
[2024-03-14] VITALS (10 sets, daily range): BP systolic 112–137; BP diastolic 76–87; PULSE 77–82; RESP 16–18; TEMP 36.1–36.6; O2SAT 91–100
--- NOTE | 2024-03-14 14:32 | CL.D_ITS ---
Patient Name: BINDU DUMONT Study Date: 03/14/2024 Performing: Remy Barclay MD Ht: 70 inches 177.8 cm : 1955 Wt: 205.01 lbs 92.99 kg Age: 68 Gender: male BSA: 2.11 PROCEDURE(S) PERFORMED DC06-([id number])RHC/LHC/COR CLINICAL PROFILE AND INDICATIONS Indications: Valvular Disease Heart Failure: NYHA Class: 2, Newly Diagnosed: Yes, Heart Failure Type: Diastolic Stress/Imaging Stress/Image Study Performed: No CAD Presentations: Symptom unlikely to be ischemic. CONCLUSIONS Right heart pressures - moderately elevated High-grade left circumflex artery stenosis and severe aortic valve stenosis and calcification and moderately elevated wedge pressure. RECOMMENDATIONS Referred to [facility] to be evaluated in the valve clinic. DESCRIPTION OF PROCEDURE The patient arrived to the procedure lab. The risks and benefits of the procedure as well as a full description of our services here and current unavailability of surgical backup were fully explained to the patient and/or their significant other prior to the catheterization. The Timeout was completed, verifying the correct patient and procedure. The patient's procedural site was prepped and draped in the usual fashion. Local anesthetic was given subcutaneously to right groin region with Lidocaine 2%. Using a modified Seldinger technique, arterial access was obtained via the right femoral artery, a 5Fr sheath was inserted. Venous access was obtained via the right femoral vein, a 7Fr sheath was inserted. Left Coronary Artery selective angiography was performed in multiple views using a 5 Fr. JL4 catheter. Right Coronary Artery selective angiography was then performed in multiple views using a 5 Fr. 3DRC (Ravin) catheter. A 7Fr thermal dilution catheter was inserted and right heart pressures were recorded, it was then advanced to PA position for cardiac outputs. The Thermal dilution catheter was then removed. CORONARY ANGIOGRAPHY LEFT HEART ASSESSMENT Left Ventricular Ejection Fraction: by Echo 65 % Normal Left Ventricular systolic function RIGHT HEART ASSESSMENT PW: 26 PA: 44/28 36 RV: 54/2 8 RA: 14 LEFT MAIN: Mild calcification, No significant disease noted LEFT ANTERIOR DESCENDING ARTERY: Mild luminal irregularities less than 30% CIRCUMFLEX ARTERY: First and second obtuse marginal branches appear to be free of significant disease the mid circumflex artery has a high-grade eccentric calcified 95% stenotic lesion. RIGHT CORONARY ARTERY: Mild luminal irregularities less than 30% VALVE FINDINGS: Aortic Valve Stenosis - severe Aortic Valve Calcification - severe Mitral Valve Calcification Moderate COMPLICATIONS No Complications PROCEDURE MEDICATIONS Fentanyl 50 mcg IV Versed 1 mg IV Fentanyl 25 mcg IV Oxygen: 2 L/min via nasal cannula SUMMARY OF HEMODYNAMIC DATA Time AIR REST ECG 12:47:23 AO 120/87 (96) SA 13:16:30 RA 16/14 (14) SV 13:53:11 RA 8/4 (4) 13:54:43 RV 54/2, 8 13:54:53 PA 44/28 (36) PA 14:00:12 PW 27/31 (26) PV 14:00:41 14:20:19 Signed By Remy Barclay MD On 03/14/2024 14:31:15 Remy Barclay MD
== END 2024-03-14 19:45 | disposition home or self-care (01) ==
LOC: CLSP 12:02 → PCU 14:20
PROVIDERS: PCP Internal Medicine; Referring Provider Internal Medicine Cardiovascular Disease; Visit Provider Internal Medicine Cardiovascular Disease
DX: I35.0 Nonrheumatic aortic (valve) stenosis (principal); I50.30 Unspecified diastolic (congestive) heart failure; I70.90 Unspecified atherosclerosis; Z79.899 Other long term (current) drug therapy
CPT/HCPCS: 93456; 99152; 99153; J7040; C1751; C1769; C1894

== ENCOUNTER → 2024-04-13 | Outpatient (CLI) | payer MEDICARE, BC, SELFPAY ==
--- NOTE | 2024-04-13 10:30 | RAD_ITS ---
STUDY: X-RAY CHEST REASON FOR EXAM: Male, 68 years old. AORTIC STENOSIS TECHNIQUE: PA and lateral views of the chest. COMPARISON: Comparison is made with prior study dated March 10, 2024. FINDINGS: EKG electrodes are seen. Surgical clips are seen overlying the right lateral upper chest wall. The lungs are clear and expanded. There is no demonstrated pleural abnormality. There is mild cardiac enlargement. Normal mediastinum and cirilo. Normal visualized pulmonary arteries. There is atherosclerotic tortuosity of the aortic arch and descending thoracic aorta. There are diffuse degenerative changes of the visualized thoracic spine. Increased kyphosis. Normal visualized ribs, clavicles, and shoulders. There is no demonstrated abnormality of the visualized soft tissue structures of the upper abdomen. RAD/Chest PA and Lateral IMPRESSION: No acute abnormality is seen. Electronically Signed: Pierce Kuhn MD at 11:15 EDT ,
[2024-04-13 10:52] LABS: Absolute Lymphocyte Count 0.98 X10^3/uL (0.83-4.51); Absolute Neutrophil Count 3.4 X10^3/uL (2.0-7.7); Basophil# 0.05 X10^3/uL; Eosinophils% 1.9 % (0-5); Hematocrit 39.8 % (40-54); Hemoglobin 12.1 g/dL (13.0-16.5); Lymphocyte # 0.98 X10^3/ul (0.83-4.51); Mean Corp Hgb Conc 30.4 g/dL (32-36); Mean Corpuscular Hgb 28.8 pg (27.0-32.0); Mean Corpuscular Volume 94.8 fL (80-94); Mean Platelet Vol. 10.9 fl (6.2-12.0); Monocyte# 0.64 X10^3/uL; Monocyte% 12.4 % (0-10); NRBC Flagged by Analyzer 0 % (0-5); Neutrophil # 3.37 X10^3/uL (2.7-7.7); Neutrophil % 65.5 % (47-70); POSITIVE MORPHOLOGY YES; Platelet Count 197 K/mm3 (150-450); RBC Distribution Width SD 75.7 fl (35.1-43.9); White Blood Count 5.2 K/mm3 (4.4-11.0)
[2024-04-13 10:54] LABS: Differential Indicated SCAN CRITERIA MET
[2024-04-13 11:16] LABS: Anion Gap 11 (5-15); BUN 43 mg/dL (7-18); BUN/Creat Ratio 6.5 RATIO (10-20); Calcium,Total 9.4 mg/dL (8.5-10.1); Chloride 92 mmol/L (98-107); Creatinine, Serum 6.66 mg/dL (0.70-1.30); EST Glomerular Filtration Rate 9 mL/min (>60); Est Glom Filt Rate - Afr Amer 11 mL/min (>60); Glucose 128 mg/dL (74-106); Potassium 4.2 mmol/L (3.5-5.1); Sodium Level 135 mmol/L (136-145)
[2024-04-13 11:37] LABS: Anisocytosis 1+
== END | disposition home or self-care (01) ==
LOC: LAB 10:10
PROVIDERS: PCP Internal Medicine; Referring Provider Nurse Practitioner Adult Health; Visit Provider Nurse Practitioner Adult Health
DX: I35.0 Nonrheumatic aortic (valve) stenosis (principal)
CPT/HCPCS: 36415; 71046; 80048; 85025

== ENCOUNTER → 2024-05-18 | Outpatient (CLI) | payer MEDICARE, BC, SELFPAY ==
--- NOTE | 2024-05-18 10:06 | CR.HP_ITS ---
CR - History & Physical General Arrival date:: 05/18/24 Arrival time:: 10:06 Date of Referral:: 05/02/24 Date of CR Evaluation:: 05/18/24 Referring Physician: Dr. Palomo Primary Diagnosis: heart valve replacement History of Present Cardiac Event Onset Date Heart valve replacement or repair:: Yes (onset 04/20/24) Medications Ambulatory Orders ?Medication ?Instructions ?Recorded acetaminophen 500 mg tablet 500 mg PO BID PAIN 11/21/19 calcium acetate(phosphat bind) 667 2,668 mg PO TID PHOSPHATE LEVELS 12/12/23 mg capsule vitamin B complex-vitamin C-folic 1 tab PO DAILY RENAL HEALTH 12/12/23 acid 0.8 mg tablet (Nephro-Christiano) cyanocobalamin (vitamin B-12) 1,000 mcg PO DAILY supplement 01/12/24 1,000 mcg tablet (Vitamin B-12) epoetin beta, methoxy peg .Route anemia 03/10/24 metoprolol succinate 25 mg 25 mg PO QHS blood pressure 03/10/24 tablet,extended release 24 hr Allergies Allergies No Known Allergies Allergy (Verified 02/15/24 13:28) Sleep Disorder Evaluation Hx of Sleep Apnea: No Do you snore loudly (louder than talking or can be heard through closed doors)?: No Do you often feel tired/ fatigued/ sleepy during daytime?: No Has anyone observed you stop breathing during sleep?: No History of Hypertension (for STOP score): Yes STOP Results: Negative Advanced Directives Advanced Directives Power of International Organizer: Yes Living Will: No Advance Directives Information Provided: No Advance Directives on File: No DNR Order?:: No Past Medical History Covid-19 Screening Physicial Symptoms Other Clinical Concerns Exposure Risk Pertinent Comorbidities 65 years or older:: Yes Has a serious heart condition:: Yes Has chronic kidney disease undergoing dialysis:: Yes Past Medical Illness Past Medical History (Updated 05/06/24 @ 16:00 by Lilo Emerson RN) History of transcatheter aortic valve replacement (TAVR) Z95.2 04/20/2024, Dr. Butts ([facility]) 29mm Celia S3 valve implantation Wears glasses Z97.3 History of steroid therapy Z92.241 CORTISONE INJECTION SHOULDER 10/2023 History of renal disease Z87.448 END STAGE Low iron E61.1 IRON INFUSIONS WITH DIALYSIS Rheumatoid arthritis M06.9 Back pain M54.9 Migraine headache G43.909 RESOLVED Dietary restriction Z71.3 RENAL History of diverticulitis Z87.19 History of ulceration Z87.898 ON PROTONIX Shortness of breath on exertion R06.02 SLIGHTLY WITH EXERTION AND STAIRS Lymphedema I89.0 LOWER LEGS History of echocardiogram Z92.89 01/2024. PATIENT WAS OVERLOADED WITH FLUID. 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 Bursitis M71.9 Problem with dialysis access T82.898A Rectal bleeding K62.5 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 15 YRS AGO Kidney failure due to vascular disorder N19, I99.9 Cardiac disease I51.9 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 Past Surgical History Past Surgical History (Updated 05/06/24 @ 16:00 by Lilo Emerson RN) History of cardiac catheterization Z98.890 03/14/2024 Hx of colonoscopy with polypectomy Z98.890, Z86.010 2023 History of esophagogastroduodenoscopy (EGD) Z98.890 X3 2023 Hx of arteriovenostomy for renal dialysis (~12/2019) Z99.2 Status post insertion of dialysis catheter (~11/2019) Z95.828, Z99.2 History of umbilical hernia Z87.19 s/p subclavian graft S/P knee surgery Z98.890 History of bicuspid aortic valve Z87.74 Surgical History: - (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) Family History Summary Family History Other Cancer Diabetes Heart disease Social History Smoking History Smoking Status: Current every day smoker Years Smokin Packs Smoked per Day: 0.5 Alcohol Use Alcohol Usage: No Substance Abuse Hx Substance Use: No Occupation Occupation (List type of work in comments):: Retired Hobbies, Recreation, Social Activities Hobbies: Other (music, computers) Recreational Activities: I am able to engage in all my recreational activities Social Environment Status Marital Status: Current Living Arrangements Living Environment:: Spouse Children How many children do you have?: 2 Do any of your children live nearby?: Yes Safety Do you feel safe in your surroundings?: Yes Assistance Do you need any assistance at home?: no Review of Systems Review of Systems Hints Review of Present Symptoms: Reports PVD, Fatigue, Heart Arrhythmia/Irregularities, Appetite - Normal and Appetite - Special Diet; Denies Shortness of Breath at Rest, Shortness of Breath with Exertion, Operative Discomfort, Angina, Wound Healing, Dizziness/Lightheadedness, Sleep - Normal or Sexual Changes Pain Is Patient Pain Free?: No Pain Location: other (joint pain due to arthritis) Pain Level: 8/10 Risk Factor Assessment Chief Complaint Chief Complaint: heart valve replacement Vital Signs Pulse Ox: 95 Blood Pressure: 135/84 Pulse Pulse Rate: 84 Hypertension Blood Pressure Sitting - Right Arm: 135/84 Obesity Height: 5 ft 10 in Weight:: 205 lb Weight in Pounds: 205.0 lbs Body Mass Index (BMI): 29.4 Physical Inactivity Physical Inactivity: None Risk Stratification Risk Guidelines: Moderate Risk: Risk Factor for Dyslipidemia, Risk Factor for Diabetes, Risk Factor for Obesity, Risk Factor for Sedentary Lifestyle and Risk Factor for Depression and Highest Risk: Risk Factor for Smoking and Risk Factor for Hypertension For Smoking Smoking Risk Guidelines For Dyslipidemia Dyslipidemia Risk Guidelines For Diabetes Mellitus Diabetes Risk Guidelines For Obesity/Overweight Obesity/Overweight Risk Guidelines For Hypertension Hypertension Risk Guidelines For Sedentary Lifestyle Sedentary Lifestyle Risk Guidelines For Depression Depression Risk Guidelines Family History Family History Other Cancer Diabetes Heart disease Motivation Motivation to Participate On a scale of 1 to 10, how prepared are you to commit to attending program?: 10 What do you see as barriers to successfully being able to complete the program?: nothing What do you see as the benefits of succesfully completing the program? In other words, what do you hope to get out of participating in the program?: live without limitations Are there issues you are dealing with that will interfere with completing the program?: ne Do you have a spouse or signficant other, family or friends who will help support you to complete the program?: yes
[2024-05-18 10:14] VITALS: BP 135/84; PULSE 84; O2SAT 95
--- NOTE | 2024-05-18 10:15 | CR.ITP_ITS ---
Diagnosis General Information Admitting Diagnosis: heart valve replacement Personal Learning Style:: Audio/Visual Barriers to Learning: No Barriers Stage of change r/t lifestyle modifications:: Contemplation Gave educational material for:: Treating Heart Disease, How The Heart Works, What it means to have Heart Disease, How Coronary Artery Disease is Diagnosed, Heart Procedures, What Heart Medications Do, Risk Factors & Modifications, Living an Active Life, Nutrition, Emotions & Heart Disease, Stress Management & Relaxation and Sleep Disorders & Heart Disease Education/Goals Cardiac Rehabilitation Goals Personal Goals: Initial Assessment: Quit smoking (participate in smoking cessation, Improve energy level, Participate in home exercise program, Get back to work, or to resume activities faster and Improve muscle strength and endurance Scale for measuring improvement of personal goals Diagnosis & Disease Process Outcomes/Goals: Pt IDs own risk factors & lifestyle modifications by Session 10, Verbalizes symptoms of angina & response by session 3., Pt independently manages and Other Additional Outcomes/Goals: Plan/Interventions: Assist Pt to ID & engage in lifestyle modification to reduce CVD risk, Instruct on individual risk factors, Review symptoms of angina & emergency actions, Review secondary diagnosis & identify educational needs. and Other see comment 30 day Reassessments:: Not Met 30 day Reassessments:: Not Met 30 day Reassessments:: Not Met 30 day Reassessments:: Not Met Final Reassessments:: Not Met Safety Referral to Physical Therapy: No Referral to [facility] Case Management: No Fall Risk Assessed:: Yes Assistive Devices:: None Exercise - Initial Assessment Visit Date of Eval: 05/18/24 (initial eval ) Mets: Pre-: >3 METS for 30 minutes by discharge Physician Prescribed Exercise Modalities: Treadmill, Schwinn Airdyne AD-7, SciFit Stepper, [employer] Pro-II Ergometer and [employer] Lateral [place] Frequency: 3x/week for 12 weeks [36 sessions] Intensity: 60-80% of age predicted maximum heart rate reserve Duration: 30 - 45 minutes Current METSs:: 3 Target Heart Rate:: 100 Resting Blood Pressure: 135/84 EKG Type: ST L fascicular block Outcomes & Goals Goals:: Verbalizes understanding of THR, RPE & goal METS by session 6, Documents in home exercise log/reports 30 min aerobic 5 day/wk by DC, Demonstrates accurate pulse taking by DC and Other additional outcome/goals: see below Intervention & Plan Exercise Program Goals: Instruct on personal THR & RPE, Instruct on MET level & personal MET goal, Show patient to take own pulse /validate performance until accurate, Instruct on home exercise and Other additional plan/int Physical Activity Home Exercise Physical Activity - Home Exercise: Safe Exercise, Warm-up, Self-monitoring, Cool-Down, Home Exercise > 30 min Daily and Sitting Time <3 hours/daily Outcomes & Goals Outcomes/Goals: Demonstrates correct Warm-up/exercise Cool-Down (S3) if = 2.5 METs, Verbalizes symptoms of exercise intolerance by Session 3 (S3), Demonstrate safe equipment use (S3) & follows exercise prescrition (6) and Other: See below Intervention & Plan Plan/Intervention: Instruct warm-up & cool-down if exercising at > 2 METs, Instruct on symptoms of exercise intolerance & actions to take, Instruct & monitor on saf, Assess intial functional capacity & safety risk and Other See below Nutrition - Initial Assessment Program Goals Nutrition Program Goals Patient has diagnosis of Hyperlipidemia (ICD E78)?: No Visit Date of Eval: 05/18/24 (initial eval ) Cholesterol/Lipids (Other Core Measures) Determine presence & major risk factors that modify LDL goal: Cigarette smoking, Hypertension or hypertensive medication, Low HDL cholesterol <40 mg/dL*, Family history of premature CHD in Male < 55 years: female <65 yearsFa and Age men > 45 years; women >/= 55 years Outcomes/Goals: Pt IDs own risk factors & lifestyle modifications by Session 10, Verbalizes symptoms of angina & response by session 3., Pt independently manages and Other Additional Outcomes/Goals: Intervention/Plan: Advocate for lipid panel cholesterol medication if applicable, Instruct on personal lipid levels & lipid goals/NCEP guidelines, Instruct on cholesterol and Other additional plan/int Referral to dietitian:: No Diabetes (Other Core Measures) Diabetes Type: Not Applicable Weight Mgt (Other Care) Height: 5 ft 10 in Weight:: 205 lb BMI: 29.4 Diagnosis Overweight/Obesity BMI> 30% ICD-10 E66: No Diagnosis High BMI/Morbid Obesity BMI> 35% ICD-10 Z68: No Outcomes/Goals: Pt sets, maintains & shows weight loss goal & trend during rehab and Other additional outcomes/goals Intervention/Plan: Instruct on ideal BMI & set weight loss goal w/patient, Assist pt to ID & incorporate diet changes for weight loss by S9, Refer to Structured Weight Loss program as appropriate, Encourage goal of using 250- 300dcal per session for weight loss and Other additional plan/interventions Healthy Eating Habits Will attend diet classes:: Yes Outcomes/Goals:: Consume diet rich in vegs,fruits,whole grain/high fiber,fish,lean meat, Limit sat/trans fats,cholesterol & added salts & sugars and Other additional outcome/goals: Intervention/Plan:: Assess current eating habits and Other Additional plan/interventions Education Gave educational materials for:: Signs & symptoms of hypoglycemia, Signs & symptoms of hyperglycemia, Relate diabetes to coronary artery disease and Healthy eating Core - Initial Assessment Visit Date of Eval: 05/18/24 (initial eval ) Medication Compliance H/O mental health issues: depression, anxiety, or addiction?: No Doesn?t believe in the benefits of treatment?: No Believes medications are unnecessary or harmful?: No Has a concern about medication side effects?: No Expresses concern over the cost of medications?: No Outcomes/Goals: Verbalizes medications,desired effect & common side effects @ DC, Pt self-reports following medication regimen, Keeps card in wallet w/medications listed by DC and Other additional outcome/goals: Interventions/plans: Instruct on medication effects & side effects, Review medication list w/patient every two weeks, Instruct importance of taking meds as ordered & assist problem solving and Other additional Tobacco Use Tobacco Use: Cigarettes How many cigarettes do you smoke per day?: 10 Years Smokin Outcomes/Goals: Smoking cessation achieved or maintained by discharge, Identify aids/strategies for achieving smoking cessation by session 6 and Other additional outcome/goals Interventions/plan: Instruct on effects of smoking & provide smoking cessation resource, Assist pt to set quit date & provide encouragement, Assist pt to develop strategies to achieve/maintain quit date, Assist pt w/nicotine replacement & medication for cessation success and Other additional plan/interventions Hypertension Hypertension Diagnosis:: Hypertension ICD-10 I10 Resting Blood Pressure:: 135/84 [place] [employer] Hypertension Guidelines Outcomes/Goals: Able to verbalize/achieve optimal blood pressure <130/80, Incorporates diet changes & exercise for blood pressure control by DC and Other additional outcomes/goals Interventions/plan: Instruct on optimal blood pressure, hypertension & medications, Instruct on effects of sodium, alcohol, stress, exercise &hypertension and Other additional plan/interventions Tobacco Cessation Referral Smoking Cessation Referral:: Yes Individual Education/Counseling:: No Education Schedule Given:: Yes Psychosocial - Initial Assess VIsit Date of Eval: 05/18/24 History of previous Mental disease:: No Target Goals Target Goals Outcomes/Goals: See list Psychosocial Outcomes/Goals:: ID's personal stressors & 2 strategies to manage stress by discharge and Other Additional outcome/goals: Intervention/Plan: See List Interventions/Plan:: Assess stressors,coping strategies & signs of derpression on admission, Instruct/assist pt to develop coping & personal stress Mgt maico quiñones, Refer to Behavioral Health if appropriate, Refer to Physician if appropriate, Instruct patient to recognize signs & symptoms of depression, Instruct patient to recog and Other additional plan/intervention Patient Health Questionnaire PHQ-9 Screening Initial Assessment: 1. Little interest or pleasure in doing things: Not at all 2. Feeling down, depressed, or hopeless: Not at all 3. Trouble falling or staying asleep, or sleeping too much: Several days 4. Feeling tired or having little energy: Several days 5. Poor appetite or overeating: Not at all 6. Feeling bad about yourself -- or that you are a failure or have let yourself or your family down: Not at all 7. Trouble concentrating on things, such as reading the newspaper or watching television: Not at all 8. Moving or speaking so slowly that other people could have noticed. Or the opposite - being so fidgety or restless that you have been moving around a lot more than usual: Not at all 9. Thoughts that you would be better off , or of hurting yourself in some way: Not at all How difficult have these problems made it for you to do your work, take care of things at home, or get along with other people?: Somewhat difficult Total Score: 2 ANGELICA-Q SV Test Statements CAD is a disease of the arteries in the heart: False Examples of risk factors for heart disease: True Angina is chest pain or discomfort: I Don't Know The benefits of resistance training include: True Eating more meat and dairy products: False Anti-platelet medications such as aspirin are important: I Don't Know The only effective way to manage stress: False An exercise warm-up slowly increases heart rate: I Don't Know Prepared, processed foods usually have high sodium: True Depression is common after a heart attack: I Don't Know The statin medications lower cholesterol: I Don't Know To control blood pressure, lower the amount of sodium: True If someone gets chest discomfort during walking: False Transfats are partially hydrogenated vegetable oils: True Sleep apnea that is not treated increases the risk: I Don't Know To control cholesterol, one should become a vegetarian: False Someone knows if he/she is exercising at the right level: I Don't Know Diabetes cannot be prevented with exercise & health eating: False Stress is a large risk for heart attack: I Don't Know A diet that can help lower blood pressure is rich in: I Don't Know Total Score Total Correct Responses: 11 Self-Efficacy 6-Item Scale Initial Assessment: We would like to know how confident you are in doing certain activities. Please select your confidence level for: Fatigue Select Number: 8 Physical Discomfort or Pain Select Number: 8 Emotional Distress Select Number: 10 Other Symptoms or Health Problems Select Number: 8 Different Tasks and Activities Select Number: 8 Medication Select Number: 10 Total Score:: 8 Nutrition Survey Nutrition Survey Instructions Scoring Instructions Nutrition Survey Initial: Have you lost >10 lbs over the past 2 months without trying?: Yes Are you following a special diet at home for diabetes, low fat, or low salt?: Yes Are you interested in meeting with a dietitian for help understanding your diet?: No Do you eat less than 3 meals a day?: Yes Do you eat fatty meats (mclaughlin, sausage, ribs, etc), fried foods, desserts, large amounts of salad dressings, margarine, butter, or cheese most days?: Yes Do you have food allergies? [Enter types in comment field]: No Do you eat in restaurants more than 3 times a week?: No Do you season food with salt, seasoning salt, or garlic salt?: Yes Do you used canned, boxed, frozen meals, or soups, seasoning packets?: Yes Total Score:: 6 Exercise - 30-day Assessment Physician Prescribed Exercise Modalities: Treadmill, Priscilla Dasilva AD-7, SciFit Stepper, SciFit Pro-II Ergometer and SciFit Lateral Aws Consultant Exercise - 60-day Assessment Physician Prescribed Exercise Modalities: Treadmill, Priscilla Dasilva AD-7, SciFit Stepper, SciFit Pro-II Ergometer and SciFit Lateral Aws Consultant Exercise - 90-day Assessment Physician Prescribed Exercise Modalities: Treadmill, Schwinn Airdyne AD-7, SciFit Stepper, SciFit Pro-II Ergometer and SciFit Lateral [place] Exercise - Final/Discharge Physician Prescribed Exercise Modalities: Treadmill, Schwinn Airdyne AD-7, SciFit Stepper, SciFit Pro-II Ergometer and SciFit Lateral Aws Consultant Frequency: 3x/week for 12 weeks [36 sessions] Intensity: 60-80% of age predicted maximum heart rate reserve Current METSs:: 3 Target Heart Rate:: 100 Nutrition - 30-Day Assessment Weight Mgt (Other Care) Height: 5 ft 10 in Weight:: 205 lb BMI: 29.4 Nutrition - 60-Day Assessment Weight Mgt (Other Care) Height: 5 ft 10 in Weight:: 205 lb BMI: 29.4 Core - 30-Day Assessment Tobacco Use Years Smokin Core - Final Assessment Hypertension Resting Blood Pressure:: 135/84 [employer] Hypertension Guidelines Core - 60-Day Assessment Hypertension Resting Blood Pressure:: 135/84 [place] [employer] Hypertension Guidelines Psychosocial - 30-Day Assess Target Goals Target Goals Psychosocial - 60-Day Assess Target Goals Target Goals Psychosocial - 90-Day Assess Target Goals Target Goals Psychosocial - Final Assessmen Target Goals Target Goals Nutrition - 90-Day Assessment Weight Mgt (Other Care) Height: 5 ft 10 in Weight:: 205 lb BMI: 29.4 Nutrition - Final Assessment Program Goals Patient has diagnosis of Hyperlipidemia (ICD E78)?: No Weight Mgt (Other Care) Height: 5 ft 10 in Weight:: 205 lb BMI: 29.4
[2024-05-18 10:21] VITALS: BP 135/84
[2024-05-18 10:32] VITALS: BMI 29.4
[2024-05-18 11:07] VITALS: BMI 29.4
== END | disposition home or self-care (01) ==
LOC: CR 09:56
PROVIDERS: PCP Internal Medicine; Referring Provider Internal Medicine Cardiovascular Disease; Visit Provider Internal Medicine Cardiovascular Disease
DX: Z95.2 Presence of prosthetic heart valve (principal)

== ENCOUNTER 2024-06-03 10:15 | Outpatient (RCR) | payer MEDICARE, BC, SELFPAY ==
[2024-05-18 10:32] VITALS: BMI 29.4
== END 2024-06-08 23:59 ==
LOC: CR 10:15
PROVIDERS: PCP Internal Medicine; Referring Provider Internal Medicine Cardiovascular Disease; Visit Provider Internal Medicine Cardiovascular Disease
DX: Z95.4 Presence of other heart-valve replacement (principal)
CPT/HCPCS: 93798

== ENCOUNTER → 2024-07-27 | Outpatient (CLI) | payer MEDICARE, BC, SELFPAY ==
[2024-05-18 10:32] VITALS: BMI 29.4
--- NOTE | 2024-07-27 12:42 | ECHOL_ITS ---
Reason For Study: AVR/ CARDIOMYOPATHY Procedure This was a limited 2D transthoracic echocardiogram. Myocardial strain analysis was performed in this exam to aid in the assessment of cardiac function. Exam performed in department. Left Ventricle Severely dilated left ventricle. Severe global hypokinesis of the left ventricle. Estimated LVEF 20 to 25%. Right Ventricle Normal right ventricle. Atria The left atrium is moderately enlarged. The right atrium is mildly enlarged. Mitral Valve Moderate mitral annular calcification. Moderate posteriorly directed mitral valve regurgitation. Tricuspid Valve Trivial tricuspid valve insufficiency. Unable to estimate RV systolic pressure due to insufficient tricuspid regurgitant envelope. Aortic Valve Bioprosthetic aortic valve not well-visualized. Mean peak gradient 24 mmHg. No aortic valve regurgitation. Pulmonic Valve The pulmonic valve is not well visualized. Great Vessels Normal sized aortic root. Pericardium/Pleural Trivial pericardial effusion. MMode/2D Measurements & Calculations LVIDd: 6.6 cm IVSd: 1.3 cm LVOT diam: 2.1 cm LVIDs: 5.6 cm LVPWd: 1.2 cm LVOT area: 3.4 cm2 RVDd: 3.5 cm FS: 14.5 % LAV(MOD-bp): 129.8 ml LVAd ap4: 44.8 cm2 LVAd ap2: 52.3 cm2 LAV(MOD-bp) Indexed: 63.8 ml/m2 LVLd ap4: 9.7 cm LVLd ap2: 10.2 cm LAV(MOD-sp2): 142.5 ml EDV(MOD-sp4): 170.0 ml EDV(MOD-sp2): 218.1 ml LAV(MOD-sp4): 112.9 ml EDV(sp4-el): 174.8 ml EDV(sp2-el): 228.5 ml LVAs ap4: 35.8 cm2 LVAs ap2: 39.9 cm2 LVLs ap4: 9.0 cm LVLs ap2: 9.6 cm ESV(MOD-sp4): 117.5 ml ESV(MOD-sp2): 138.4 ml ESV(sp4-el): 120.7 ml ESV(sp2-el): 140.9 ml EF(MOD-sp4): 30.9 % EF(MOD-sp2): 36.5 % EF(sp4-el): 30.9 % SV(MOD-sp4): 52.5 ml SV(MOD-sp2): 79.7 ml SV(sp4-el): 54.0 ml Ao sinus diam: 3.2 cm LA dimension(2D): 4.1 cm LA A4 area: 29.2 cm2 RA A4 area: 18.2 cm2 Time Measurements MV dec time: 0.17 sec Doppler Measurements & Calculations MV E max tejas: 111.2 cm/sec Lat Peak E' [place]: 13.2 cm/sec Med Peak E' [place]jas: 10.4 cm/sec MV A max tejas: 147.7 cm/sec E/E' lat: 8.4 E/E' med: 10.7 MV E/A: 0.75 Ao V2 max: 316.4 cm/sec LV V1 max: 116.8 cm/sec MV dec slope: 659.6 cm/sec2 Ao max P.2 mmHg LV V1 max P.5 mmHg Ao V2 mean: 236.2 cm/sec LV V1 mean P.1 mmHg Ao mean P.1 mmHg LV V1 mean: 83.8 cm/sec Ao V2 VTI: 58.9 cm LV V1 VTI: 22.0 cm AV (velocity ratio): 0.37 BRITTANY(I,D): 1.3 cm2 BRITTANY(V,D): 1.2 cm2 SV(LVOT): 74.3 ml ECHO/Echo, Limited Study Interpretation Summary Severely dilated left ventricle. Severe global hypokinesis of the left ventricle. Estimated LVEF 20 to 25%. The right atrium is mildly enlarged. Moderate posteriorly directed mitral valve regurgitation Bioprosthetic aortic valve not well-visualized. Mean peak gradient 24 mmHg. No aortic valve regurgitation. Ordering Physician: Meryl Estrada Referring Physician: Meryl Estrada Performed By: Vanessa Kamara RDCS
== END | disposition home or self-care (01) ==
LOC: CVS 12:40
PROVIDERS: PCP Internal Medicine; Referring Provider Nurse Practitioner Gerontology; Visit Provider Nurse Practitioner Gerontology
DX: I42.8 Other cardiomyopathies (principal); Z95.2 Presence of prosthetic heart valve
CPT/HCPCS: 93308

== ENCOUNTER → 2024-09-28 | Outpatient (CLI) | payer MEDICARE, BC, SELFPAY ==
[2024-05-18 10:32] VITALS: BMI 29.4
--- NOTE | 2024-09-28 10:40 | ECHOL_ITS ---
Version 2 Reason For Study: CONGESTIVE HEART FAILURE Procedure This was a limited 2D transthoracic echocardiogram. Myocardial strain analysis was performed in this exam to aid in the assessment of cardiac function. Exam performed in department. Left Ventricle Mildly dilated left ventricle. The left ventricular ejection fraction is 25 %. There is moderate to severe global hypokinesis of the left ventricle. Right Ventricle Normal RV size. Normal systolic function. Atria Normal left atrium. Normal right atrium. Mitral Valve Normal mitral valve. Tricuspid Valve Normal tricuspid valve. Aortic Valve Peak aortic valve gradient 34 mmHg. Mean aortic valve gradient 20 mmHg. Bioprosthetic aortic valve. Pulmonic Valve Normal pulmonic valve. Great Vessels Normal aortic root. The pulmonary artery is normal size. Inferior vena cava collapse with respiration. Pericardium/Pleural No pericardial effusion. MMode/2D Measurements & Calculations LVIDd: 6.1 cm IVSd: 1.3 cm LVOT diam: 2.1 cm LVIDs: 5.1 cm LVPWd: 1.3 cm LVOT area: 3.5 cm2 RVDd: 3.8 cm FS: 17.1 % LAV(MOD-bp): 98.6 ml LVAd ap4: 47.6 cm2 LVAd ap2: 49.6 cm2 LAV(MOD-bp) Indexed: 48.8 ml/m2 LVLd ap4: 9.9 cm LVLd ap2: 9.9 cm LAV(MOD-sp2): 97.4 ml EDV(MOD-sp4): 190.1 ml EDV(MOD-sp2): 202.2 ml LAV(MOD-sp4): 98.5 ml EDV(sp4-el): 194.3 ml EDV(sp2-el): 211.7 ml LVAs ap4: 35.7 cm2 LVAs ap2: 36.6 cm2 LVLs ap4: 9.2 cm LVLs ap2: 9.2 cm ESV(MOD-sp4): 115.1 ml ESV(MOD-sp2): 117.9 ml ESV(sp4-el): 117.5 ml ESV(sp2-el): 122.9 ml EF(MOD-sp4): 39.5 % EF(MOD-sp2): 41.7 % EF(sp4-el): 39.5 % SV(MOD-sp4): 75.1 ml SV(MOD-sp2): 84.3 ml SV(sp4-el): 76.8 ml SI(MOD-sp4): 37.2 ml/m2 SI(MOD-sp2): 41.8 ml/m2 LA A4 area: 26.6 cm2 LA dimension(2D): 5.3 cm RA A4 area: 16.4 cm2 TAPSE: 1.5 cm Time Measurements MV dec time: 0.14 sec Doppler Measurements & Calculations MV E max tejas: 66.2 cm/sec Lat Peak E' [place]: 11.0 cm/sec Med Peak E' [place]: 5.3 cm/sec MV A max tejas: 123.9 cm/sec E/E' lat: 6.0 E/E' med: 12.6 MV E/A: 0.53 Ao V2 max: 292.9 cm/sec LV V1 max: 130.4 cm/sec MV dec slope: 470.2 cm/sec2 Ao max P.3 mmHg LV V1 max P.8 mmHg Ao V2 mean: 211.4 cm/sec LV V1 mean P.2 mmHg Ao mean P.0 mmHg LV V1 mean: 98.5 cm/sec Ao V2 VTI: 60.3 cm LV V1 VTI: 22.5 cm AV (velocity ratio): 0.37 BRITTANY(I,D): 1.3 cm2 BRITTANY(V,D): 1.6 cm2 SV(LVOT): 79.7 ml ECHO/Echo, Limited Study Interpretation Summary The left ventricular ejection fraction is 25 %. Mildly dilated left ventricle. Mean aortic valve gradient 20 mmHg. Bioprosthetic aortic valve. There is moderate to severe global hypokinesis of the left ventricle. Compared to previous study, the left ventricular systolic function is the same. . The global longitudinal strain = -10.8% (abnormal). Ordering Physician: Aric Palomo Referring Physician: Aric Palomo MD Performed By: Vanessa Kamara RDCS
== END | disposition home or self-care (01) ==
LOC: CVS 10:39
PROVIDERS: PCP Internal Medicine; Referring Provider Internal Medicine Cardiovascular Disease; Visit Provider Internal Medicine Cardiovascular Disease
DX: I35.2 Nonrheumatic aortic (valve) stenosis with insufficiency (principal)
CPT/HCPCS: 93308

== ENCOUNTER 2024-12-27 15:22 | Inpatient (IN) | payer MEDICARE, BC, SELFPAY ==
[2024-05-18 10:32] VITALS: BMI 29.4
[2024-12-27 15:26] VITALS: BP 122/72; PULSE 86; RESP 18; TEMP 36.7; O2SAT 100
[2024-12-27 15:29] VITALS: BMI 27.9
--- NOTE | 2024-12-27 16:52 | ED.VIS.GI ---
HPI HPI - GI History of Present Illness Chief Complaint: GI Bleed Informant: patient Nausea/Vomiting/Emesis GI Symptom: Negative for Nausea or Vomiting Diarrhea/Melena/Hematochezia GI Symptom: Positive for Melena Onset: Days (5) Stool Quality: Positive for Black Associated Symptoms Associated Symptoms: Negative for Dysuria or Hematuria Narrative Narrative: Patient presents with gastrointestinal bleeding that has been getting worse over the past 5 to 6 days. Patient states he has a history of peptic ulcer disease and has had 4 peptic ulcers cauterized in the past. Patient has a history of end-stage renal disease and is on dialysis. Patient gets heparin through his dialysis. Patient is also on aspirin for coronary artery disease. Patient states he has noted some black stools over the last 5 to 6 days. Patient admits to increasing weakness and fatigue. Patient states his hemoglobin last week was 11.4 and is 8.8 this week. Patient denies any abdominal pain. [facility] Medical History History of transcatheter aortic valve replacement (TAVR) Wears glasses History of steroid therapy History of renal disease Low iron Rheumatoid arthritis Back pain Migraine headache Dietary restriction History of diverticulitis History of ulceration Shortness of breath on exertion Lymphedema History of echocardiogram Cardiology follow-up encounter Hypertension Chronic renal failure Anemia DVT (deep venous thrombosis) End stage renal disease on dialysis Secondary hyperparathyroidism Generalized weakness Acute on chronic anemia Chronic anemia Acute upper GI bleed History of end stage renal disease History of renal dialysis Dialysis patient Hepatitis Smoker Bursitis Problem with dialysis access Rectal bleeding Subclavian aneurysm Kidney failure due to vascular disorder Cardiac disease Rheumatoid vasculitis Rheumatoid aortitis Home Medications ?Medication ?Instructions ?Recorded ?Last Taken ?Type vitamin B complex-vitamin C-folic 1 tab PO DAILY RENAL HEALTH 12/12/23 12/27/24 History acid 0.8 mg tablet (Nephro-Christiano) cyanocobalamin (vitamin B-12) 1,000 mcg PO DAILY supplement 01/12/24 12/27/24 History 1,000 mcg tablet (Vitamin B-12) acetaminophen 500 mg tablet 1,000 mg PO BID PAIN 12/02/24 12/27/24 History carvedilol 12.5 mg tablet 12.5 mg PO BID 12/02/24 12/27/24 History coenzyme Q10 200 mg capsule (Co 200 mg PO QDAY 12/02/24 12/27/24 History Q-10) epoetin beta, methoxy peg subcut PRN low blood counts 12/02/24 Unknown History losartan 25 mg tablet 25 mg PO BID 12/27/24 12/26/24 History sevelamer carbonate 800 mg tablet 800 mg PO TIDCM 12/27/24 12/27/24 History Allergy/AdvReac Type Severity Reaction Status Date / Time No Known Allergies Allergy Verified 12/27/24 15:26 Family History Other Cancer Diabetes Heart disease Surgical History History of cardiac catheterization Hx of colonoscopy with polypectomy History of esophagogastroduodenoscopy (EGD) Hx of arteriovenostomy for renal dialysis (~12/2019) Status post insertion of dialysis catheter (~11/2019) History of umbilical hernia s/p subclavian graft S/P knee surgery History of bicuspid aortic valve Social History household members: spouse housing: house Smoking Status: Heavy Smoker (>10/day) alcohol intake: never substance use type: does not use caffeine: Yes Type: coffee Number of servings: 2 ROS ROS ED Constitutional Constitutional ED: Denies chills or fever(s) Eyes Eyes: Denies blurry vision or change in vision ENT ENT ED: Denies rhinorrhea or sore throat Cardiovascular Cardiovascular: Denies chest pain or palpitations Respiratory/Chest Respiratory/Chest: Reports cough; Denies dyspnea Gastrointestinal Gastrointestinal: Reports melena; Denies abdominal pain, nausea or vomiting Genitourinary Genitourinary ED: Denies dysuria or hematuria Musculoskeletal Musculoskeletal: Denies back pain or neck pain Integumentary Denies abscess or rash Neurologic Neurologic: Denies headache(s) or weakness Allergic/Immunologic Allergic/Immunologic ED: Denies mouth swelling or urticaria EXAM Physical Exam Const Vital Signs: 12/27/24 15:26 12/27/24 17:29 12/27/24 18:46 Temperature 98.1 F 98.1 F Temperature Source Oral Pulse Rate 86 81 81 Respiratory Rate 18 16 16 Blood Pressure 122/72 H 141/79 H 141/79 H Blood Pressure Mean 88 99 99 Pulse Ox 100 98 98 Oxygen Delivery Method Room Air Room Air 12/27/24 19:00 Temperature Temperature Source Pulse Rate 82 Respiratory Rate 17 Blood Pressure 110/60 Blood Pressure Mean 76 Pulse Ox Oxygen Delivery Method Positive well nourished and well developed General Appearance ED: well developed and NAD HEENT Reports moist mucous membranes Neck supple and no JVD Resp normal respiratory effort and clear to auscultation bilaterally Cardio regular rate and regular rhythm GI non-tender and non-distended GI Narrative: Rectal exam showed good sphincter tone. There is mild tenderness. There is black stool noted. There are no masses palpated. Auscultation: normoactive bowel sounds Palpation: soft Rectal Exam: normal sphincter tone and prostate normal Extremity full ROM Neuro CN's II-XII intact bilaterally, moves all extremities and no sensory deficits noted Sensorium / Orientation: alert Motor Exam: strength 5/5 throughout Psych mental status grossly normal and thought process normal MDM MDM MDM Narrative Medical decision making narrative: Differential diagnosis includes upper gastrointestinal bleeding, anemia, electrolyte abnormality, coagulopathy, cardiac dysrhythmia, cardiac ischemia, and peptic ulcer disease. EKG will be obtained to assess for cardiac dysrhythmia and cardiac ischemia. CBC will be obtained to assess for leukocytosis and anemia. Comprehensive metabolic profile will be obtained to assess for electrolyte abnormality, renal function, and hepatic function. PT with INR and PTT will be obtained to assess for coagulopathy. Type and screen will be obtained to assess for possible transfusion. Lab Data Attestation: I reviewed the patient's lab results. Lab results narrative: CBC was reviewed. There is a mild anemia with a hemoglobin of 8.9 and hematocrit of 25.7. White blood cell count is mildly elevated at 13.1. Comprehensive metabolic profile was reviewed. BUN was elevated at 55 and creatinine was 4.21. These are actually improved from previous results. High-sensitivity troponin was reviewed and was slightly elevated at 155. Blood type was reviewed and is A positive. PT with INR and PTT were reviewed and were within normal limits. Labs: Laboratory Results - last 24 hr 12/27/24 16:30 WBC 13.1 H RBC 2.47 L Hgb 8.9 L Hct 25.7 L MCV 104.0 H MCH 36.0 H MCHC 34.6 RDW Std Deviation 55.6 H RDW Coeff of Brynn 14.8 H Plt Count 217 MPV 11.0 Immature Gran % (Auto) 0.400 Neut % (Auto) 85.9 H Lymph % (Auto) 5.2 L Gosper % (Auto) 7.5 Eos % (Auto) 0.6 Baso % (Auto) 0.4 Absolute Neuts (auto) 11.3 H Absolute Lymphs (auto) 0.68 L Nucleated RBC % 0 PT 14.1 INR 1.1 APTT 30.4 Sodium 135 L Potassium 3.7 Chloride 93 L Carbon Dioxide 32.0 Anion Gap 10 BUN 55 H Creatinine 4.21 H Estim Creat Clear Calc 18.54 Est GFR (MDRD) Af Amer 18 L Est GFR (MDRD) Non-Af 15 L BUN/Creatinine Ratio 13.1 Glucose 112 H Calcium 8.4 L Total Bilirubin 0.30 AST 17 ALT 17 Alkaline Phosphatase 49 Troponin I High Sens 155 H* Total Protein 7.4 Albumin 3.2 Globulin 4.2 Albumin/Globulin Ratio 0.8 L Blood Type A POSITIVE Antibody Screen NEGATIVE EKG Initial EKG: Attestation: I personally reviewed and interpreted this EKG as follows: Interpretation: Sinus Rhythm (76 with occasional PACs) and LBBB Comments: EKG was obtained. On my independent interpretation, shows a normal sinus rhythm with a rate of 76 with occasional PACs. UT interval was normal at 198 ms. QRS interval was slightly prolonged at 156 ms. QTc interval was 546 ms. There is left axis deviation at -57. There is a left bundle branch block pattern noted. There are no acute ST or T wave changes noted. Prior EKG tracings: available for review Prior: Unchanged (08/19/2024) Management Discussion w/another healthcare provider: Hospitalist and Purchasing Specialist (Dr. Ross) Treatment and Re-Evaluation :: Patient was started on Protonix. Patient was not given any aspirin for the elevated troponin because of the gastrointestinal bleeding. Patient was advised of his findings. Case was discussed with Dr. Ross. He will follow-up with the patient in the hospital. Case was discussed with the hospitalist. She will admit the patient to her service. Patient understood and was agreeable with the plan. All questions were answered. Discharge Plan Dx/Rx/DC Orders Clinical Impression: Gastrointestinal bleeding, upper, Anemia, Left bundle branch block, Elevated troponin Disposition Disposition: Acute Care Hospital [facility] Discharge Date/Time: 12/27/24 20:20
[2024-12-27 17:29] VITALS: BP 141/79; PULSE 81; RESP 16; O2SAT 98
[2024-12-27 17:29] LABS: Absolute Lymphocyte Count 0.68 X10^3/uL (0.83-4.51); Absolute Neutrophil Count 11.3 X10^3/uL (2.0-7.7); Basophil# 0.05 X10^3/uL; Basophil% 0.4 % (0-1); Eosinophil# 0.08 X10^3/uL; Eosinophils% 0.6 % (0-5); Hematocrit 25.7 % (40-54); Hemoglobin 8.9 g/dL (13.0-16.5); Lymphocyte # 0.68 X10^3/ul (0.83-4.51); Lymphocyte % 5.2 % (19-41); Mean Corp Hgb Conc 34.6 g/dL (32-36); Monocyte# 0.99 X10^3/uL; Monocyte% 7.5 % (0-10); NRBC Flagged by Analyzer 0 % (0-5); Neutrophil # 11.28 X10^3/uL (2.7-7.7); Neutrophil % 85.9 % (47-70); Platelet Count 217 K/mm3 (150-450); RBC Distribution Width CV 14.8 % (11.6-14.6); RBC Distribution Width SD 55.6 fl (35.1-43.9); Red Blood Count 2.47 M/mm3 (4.6-6.2); White Blood Count 13.1 K/mm3 (4.4-11.0)
[2024-12-27] MEDS: Pantoprazole Sodium 80 MG in 0.9% Normal Saline (50mL Bag) 15 ML 420 MG IV BOLUS (17:50)
[2024-12-27 17:57] LABS: ALB/GLOB Ratio 0.8 RATIO (0.9-2.4); AST(SGOT) 17 U/L (15-37); Alanine Aminotransfer ALT/SGPT 17 U/L (16-61); Albumin, Serum 3.2 g/dL (3.2-5.0); Alkaline Phosphatase 49 U/L (45-117); Anion Gap 10 (5-15); BUN 55 mg/dL (7-18); BUN/Creat Ratio 13.1 RATIO (10-20); Calcium,Total 8.4 mg/dL (8.5-10.1); Chloride 93 mmol/L (98-107); Creatinine, Serum 4.21 mg/dL (0.70-1.30); EST Glomerular Filtration Rate 15 mL/min (>60); Est Glom Filt Rate - Afr Amer 18 mL/min (>60); Estimated Creatinine Clearance 18.54 ml/min; Globulin 4.2 g/dL (2.2-4.2); Glucose 112 mg/dL (74-106); Potassium 3.7 mmol/L (3.5-5.1); Protein, Total 7.4 g/dL (6.4-8.2); Sodium Level 135 mmol/L (136-145); Troponin-I HS 155 pg/mL (3.0-78.0)
[2024-12-27 18:14] LABS: International Normalized Ratio 1.1; Prothrombin Time (Protime)PT. 14.1 SECONDS (11.7-14.9)
[2024-12-27 18:15] LABS: Partial Thromboplast Time 30.4 Seconds (24.1-36.2)
[2024-12-27 18:46] VITALS: BP 141/79; PULSE 81; RESP 16; TEMP 36.7; O2SAT 98
[2024-12-27 19:00] VITALS: BP 110/60; PULSE 82; RESP 17
--- NOTE | 2024-12-27 19:25 | CASEMGMT ---
Care Management Face to Face with patient for initial transition planning/care coordination assessment in the ED.? This science writer introduced self and role at [facility]. Patient alert and oriented. Patient willing to participate in assessment and is able to answer all questions appropriately.? Care providers, pharmacy, and demographics verified. Admitting Diagnosis: GI Bleed Other diagnosis history: Rheumatoid arthritis, diverticulitis, hypertension, ESRD PCP: Padmini Specialists: Stacia Ross Preferred Pharmacy: [facility] Insurance: Medicare Prescription Benefit: [place] Living Will/HPOA: ?Has HPOA LNOK: Living Arrangements: Lives with in one story home?? Mostly independent with ADLS and IADLs, what he needs assistance with helps. Transportation: mostly drives patient where needed DME: cane, blood pressure cuff, pulse ox HHC: none SNF/Rehab: none Community Resources: none Behavioral Health History: none Patient goals: Patient wishes to discharge home, denies need for home health care at this time. Patient denies any further needs or concerns at this time. Disposition Plan: admission to acute; RN CM/SW to follow for discharge planning needs that may arise. Morena Bella, LOAN PROCESSOR, BRIM STRETCHER
--- NOTE | 2024-12-27 19:38 | PCM.HP.STD ---
HPI - General General Date of Admission: 12/27/24 Date of Service: 12/27/24 Chief Complaint: Dark stool HPI Narrative BINDU DUMONT, is a 69-year-old male with history of TAVR, hypertension, coronary artery disease, end-stage renal disease on hemodialysis who presented to [facility] ED 12/27/2024 due to black stools over the past 4 to 5 days with increasing weakness and fatigue. Hemoglobin last week was 11.4 and this week 8.8. He notes history of peptic ulcer disease with 4 ulcers cauterized in the past. Is on aspirin for history of coronary artery disease. In the ED patient initially vitally stable with temp 98.1, heart rate 86 with blood pressure 122/72, respiratory rate 18 pulse ox 100% on room air. He was found to have troponin of 155 but does have chronically elevated troponin and has no chest pain. Fecal occult negative however given whole clinical picture and history GI contacted and were agreeable with PPI and will see in consult. Hospitalist contacted for admission. Patient reports black stool for around 5 days and has been feeling very weak and fatigued like he has before when he had a bleeding ulcer. Also reports couple weeks ago had some kind of cold-like symptoms that did improved but has been feeling bad again over the past few days with a dark stool. Denies any current cough or shortness of breath, no fever, swelling in legs at baseline [facility] Medical History History of transcatheter aortic valve replacement (TAVR) Wears glasses History of steroid therapy History of renal disease Low iron Rheumatoid arthritis Back pain Migraine headache Dietary restriction History of diverticulitis History of ulceration Shortness of breath on exertion Lymphedema History of echocardiogram Cardiology follow-up encounter Hypertension Chronic renal failure Anemia DVT (deep venous thrombosis) End stage renal disease on dialysis Secondary hyperparathyroidism Generalized weakness Acute on chronic anemia Chronic anemia Acute upper GI bleed History of end stage renal disease History of renal dialysis Dialysis patient Hepatitis Smoker Bursitis Problem with dialysis access Rectal bleeding Subclavian aneurysm Kidney failure due to vascular disorder Cardiac disease Rheumatoid vasculitis Rheumatoid aortitis Home Medications ?Medication ?Instructions ?Recorded ?Last Taken ?Type vitamin B complex-vitamin C-folic 1 tab PO DAILY RENAL HEALTH 12/12/23 12/27/24 History acid 0.8 mg tablet (Nephro-Christiano) cyanocobalamin (vitamin B-12) 1,000 mcg PO DAILY supplement 01/12/24 12/27/24 History 1,000 mcg tablet (Vitamin B-12) acetaminophen 500 mg tablet 1,000 mg PO BID PAIN 12/02/24 12/27/24 History carvedilol 12.5 mg tablet 12.5 mg PO BID 12/02/24 12/27/24 History coenzyme Q10 200 mg capsule (Co 200 mg PO QDAY 12/02/24 12/27/24 History Q-10) epoetin beta, methoxy peg subcut PRN low blood counts 12/02/24 Unknown History losartan 25 mg tablet 25 mg PO BID 12/27/24 12/26/24 History sevelamer carbonate 800 mg tablet 800 mg PO TIDCM 12/27/24 12/27/24 History Allergy/AdvReac Type Severity Reaction Status Date / Time No Known Allergies Allergy Verified 12/27/24 15:26 Family History Other Cancer Diabetes Heart disease Surgical History History of cardiac catheterization Hx of colonoscopy with polypectomy History of esophagogastroduodenoscopy (EGD) Hx of arteriovenostomy for renal dialysis (~12/2019) Status post insertion of dialysis catheter (~11/2019) History of umbilical hernia s/p subclavian graft S/P knee surgery History of bicuspid aortic valve Social History household members: spouse housing: house Smoking Status: Heavy Smoker (>10/day) alcohol intake: never substance use type: does not use caffeine: Yes Type: coffee Number of servings: 2 ROS ROS Narrative General: Denies fever/chills HENT: Was having some URI-like symptoms but these have been improving EYES: Denies changes in vision Resp: Denies acute cough, denies shortness of breath Cardiac: Denies chest pain GI: Denies abdominal pain, does report the black stools but denies any bright red blood, denies nausea/vomiting : Denies changes in urination Extremity: Swelling is at baseline MSK: Generalized weakness Neuro: Denies any numbness/tingling Heme: Denies any bleeding or bruising Skin: Denies rashes Psychiatric: Patient upset that he has not yet been able to eat Vital Signs Vital Signs Vital Signs: 12/27/24 15:26 12/27/24 17:29 12/27/24 18:46 Temperature 98.1 F 98.1 F Temperature Source Oral Pulse Rate 86 81 81 Respiratory Rate 18 16 16 Blood Pressure 122/72 H 141/79 H 141/79 H Blood Pressure Mean 88 99 99 Pulse Ox 100 98 98 Oxygen Delivery Method Room Air Room Air 12/27/24 19:00 Temperature Temperature Source Pulse Rate 82 Respiratory Rate 17 Blood Pressure 110/60 Blood Pressure Mean 76 Pulse Ox Oxygen Delivery Method Weight Weight: 88.4 kg Body Mass Index (BMI) 27.9 Physical Exam Narrative General: Alert, oriented, no apparent distress HEENT: Atraumatic, normocephalic Eyes: Anicteric, normal conjunctiva, extraocular movements grossly intact Neck: Supple Respiratory: Clear to auscultation bilaterally, normal respiratory effort Cardiovascular: Regular rate GI: Soft, nontender, nondistended Extremities: Edema bilateral lower extremities the patient reports baseline, presently has compression socks in place Musculoskeletal: Moving all extremities Neuro: No overt focal neurological deficits Skin: No rashes appreciated Psych: Cooperative Results Lab / Micro Data 12/27/24 16:30 12/27/24 16:30 Labs: Laboratory Results - last 24 hr 12/27/24 16:30: WBC 13.1 H, RBC 2.47 L, Hgb 8.9 L, Hct 25.7 L, MCV 104.0 H, MCH 36.0 H, MCHC 34.6, RDW Std Deviation 55.6 H, RDW Coeff of Brynn 14.8 H, Plt Count 217, MPV 11.0, Immature Gran % (Auto) 0.400, Neut % (Auto) 85.9 H, Lymph % (Auto) 5.2 L, [place] % (Auto) 7.5, Eos % (Auto) 0.6, Baso % (Auto) 0.4, Absolute Neuts (auto) 11.3 H, Absolute Lymphs (auto) 0.68 L, Nucleated RBC % 0, PT 14.1, INR 1.1, APTT 30.4, Sodium 135 L, Potassium 3.7, Chloride 93 L, Carbon Dioxide 32.0, Anion Gap 10, BUN 55 H, Creatinine 4.21 H, Estim Creat Clear Calc 18.54, Est GFR (MDRD) Af Amer 18 L, Est GFR (MDRD) Non-Af 15 L, BUN/Creatinine Ratio 13.1, Glucose 112 H, Calcium 8.4 L, Total Bilirubin 0.30, AST 17, ALT 17, Alkaline Phosphatase 49, Troponin I High Sens 155 H*, Total Protein 7.4, Albumin 3.2, Globulin 4.2, Albumin/Globulin Ratio 0.8 L, Blood Type A POSITIVE, Antibody Screen NEGATIVE Micro: Microbiology 12/27/24 17:09 Stool Stool Occult Blood (LAMONTE) - Final Assessment & Plan Assessment/Plan (1) Black stool: PLAN: Plan # Black stool with worsening anemia suspect secondary to upper GI bleed -Patient has a history of bleeding ulcers and has had 4 peptic ulcers cauterized in the past -Patient's hemoglobin 8.9, reportedly last week was 11.4 with baseline somewhere between 8 and 10 based on our labs with some values higher. Fecal occult was negative however given patient's drop in hemoglobin from last week to this week as well as his medical complexity and history feel it is reasonable for inpatient admission and workup, -IV PPI -Trend H&H -N.p.o. at midnight in the event patient is a candidate for endoscopy -GI consult #ESRD on HD -Consult nephrology, patient's last treatment was earlier today reports he is able to complete this treatment, next due on -Renal diet -Daily weights, I's and O's #Elevated trop -Patient with chronically elevated troponin, no chest pain or other cardiac complaints so this was not further pursued at this time -Low threshold to repeat and consult cardiology if patient has chest pain or any concerns arise # History of coronary artery disease/history of TAVR -Given suspected active GI bleed holding aspirin -Patient does have known coronary artery disease and at some point is supposed to have a stent however had not tolerated aspirin so that had not yet been pursued, patient supposed to have a capsule endoscopy on an outpatient basis -Patient did have TAVR last year, follows with Dr. Palomo with cardiology # History of chronic heart failure with reduced ejection fraction -Patient's last echo 09/28/2024 with EF of 25% -Follows with cardiology on outpatient basis, cardiology note reviewed -Daily weights, I's and O's #Hypertension -Will decrease Coreg and have holding parameters given presenting complaint and blood pressure presently 110/60 in the ED -hold losartan #Tobacco use -Advise cessation -Nicotine replacement available if desired #DVT ppx: SCDs Yara Delacruz MD Time spent in the patient's overall evaluation, decision-making process, review of diagnostic data, adjustment of management, discussion with other providers, nursing and ancillary staff involved in patient's care documentation, 57 Minutes Charges/Coding Visit Charges Inpatient E&M: 36260 Init Hosp L2
[2024-12-27 20:31] VITALS: BP 151/99; PULSE 75; RESP 16; TEMP 36.7; O2SAT 99
[2024-12-27 20:32] VITALS: BMI 27.8
[2024-12-27 21:16] LABS: Hematocrit 24.6 % (40-54); Hemoglobin 8.2 g/dL (13.0-16.5)
[2024-12-27] MEDS: Pantoprazole Sodium 40 MG in 0.9% Normal Saline (100mL MB+) 100 ML 330 MG IV (22:40)
[2024-12-27] MEDS: Losartan Potassium 25 MG Tablet PO (22:46)
[2024-12-27] MEDS: Acetaminophen 500 MG Tablet 1000 MG PO (22:47)
--- NOTE | 2024-12-27 23:23 | EX.PCM.CON.G ---
HPI Consult Data Date of Consult: 12/27/24 HPI Narrative Reason for Consultation: GI bleed HPI Narrative: BINDU DUMONT, is a 69-year-old male with history of TAVR, hypertension, coronary artery disease, end-stage renal disease on hemodialysis who presented to [facility] ED 12/27/2024 due to black stools over the past 4 to 5 days with increasing weakness and fatigue. Hemoglobin last week was 11.4 and this week 8.8. He notes history of peptic ulcer disease with 4 ulcers cauterized in the past. He is on aspirin for history of coronary artery disease and he gets heparin during his dialysis. In the ED patient initially vitally stable with temp 98.1, heart rate 86 with blood pressure 122/72, respiratory rate 18 pulse ox 100% on room air. He was found to have troponin of 155 but does have chronically elevated troponin and has no chest pain. Patient reports black stool for around 5 days and has been feeling very weak and fatigued like he has before when he had a bleeding ulcer. Also reports couple weeks ago had some kind of cold-like symptoms that did improved but has been feeling bad again over the past few days with a dark stool. [facility] Medical History History of transcatheter aortic valve replacement (TAVR) Wears glasses History of steroid therapy History of renal disease Low iron Rheumatoid arthritis Back pain Migraine headache Dietary restriction History of diverticulitis History of ulceration Shortness of breath on exertion Lymphedema History of echocardiogram Cardiology follow-up encounter Hypertension Chronic renal failure Anemia DVT (deep venous thrombosis) End stage renal disease on dialysis Secondary hyperparathyroidism Generalized weakness Acute on chronic anemia Chronic anemia Acute upper GI bleed History of end stage renal disease History of renal dialysis Dialysis patient Hepatitis Smoker Bursitis Problem with dialysis access Rectal bleeding Subclavian aneurysm Kidney failure due to vascular disorder Cardiac disease Rheumatoid vasculitis Rheumatoid aortitis Home Medications ?Medication ?Instructions ?Recorded ?Last Taken ?Type vitamin B complex-vitamin C-folic 1 tab PO DAILY RENAL HEALTH 12/12/23 12/27/24 History acid 0.8 mg tablet (Nephro-Christiano) cyanocobalamin (vitamin B-12) 1,000 mcg PO DAILY supplement 01/12/24 12/27/24 History 1,000 mcg tablet (Vitamin B-12) acetaminophen 500 mg tablet 1,000 mg PO BID PAIN 12/02/24 12/27/24 History carvedilol 12.5 mg tablet 12.5 mg PO BID 12/02/24 12/27/24 History coenzyme Q10 200 mg capsule (Co 200 mg PO QDAY 12/02/24 12/27/24 History Q-10) epoetin beta, methoxy peg subcut PRN low blood counts 12/02/24 Unknown History losartan 25 mg tablet 25 mg PO BID 12/27/24 12/26/24 History sevelamer carbonate 800 mg tablet 800 mg PO TIDCM 12/27/24 12/27/24 History Allergy/AdvReac Type Severity Reaction Status Date / Time No Known Allergies Allergy Verified 12/27/24 15:26 Family History Other Cancer Diabetes Heart disease Surgical History History of cardiac catheterization Hx of colonoscopy with polypectomy History of esophagogastroduodenoscopy (EGD) Hx of arteriovenostomy for renal dialysis (~12/2019) Status post insertion of dialysis catheter (~11/2019) History of umbilical hernia s/p subclavian graft S/P knee surgery History of bicuspid aortic valve Social History household members: spouse housing: house Smoking Status: Heavy Smoker (>10/day) alcohol intake: never substance use type: does not use caffeine: Yes Type: coffee Number of servings: 2 ROS Constitutional Constitutional: Denies fatigue, fever(s), poor appetite, weight gain or weight loss Gastrointestinal Gastrointestinal: Denies belching, bloating, change in bowel habits, change in stool character, chewing difficulty, coffee ground emesis, constipation, cramping, diarrhea, dyspepsia, dysphagia, early satiety, excessive flatus, fecal incontinence, heartburn, hematemesis, hematochezia, hemorrhoids, loose stools, melena, nausea, odynophagia, rectal bleeding, tenesmus, vomiting or weight changes Physical Exam Const alert, oriented x3, no apparent distress and healthy appearing General Appearance: cooperative GI normal to inspection, nondistended, normoactive bowel sounds, soft to palpation, non-tender and non-distended Percussion: normal to percussion Rectal Exam: deferred Lab / Micro Data 12/28/24 08:30 12/28/24 08:30 Labs: Laboratory Results - last 24 hr 12/27/24 16:30: WBC 13.1 H, RBC 2.47 L, Hgb 8.9 L, Hct 25.7 L, MCV 104.0 H, MCH 36.0 H, MCHC 34.6, RDW Std Deviation 55.6 H, RDW Coeff of Brynn 14.8 H, Plt Count 217, MPV 11.0, Immature Gran % (Auto) 0.400, Neut % (Auto) 85.9 H, Lymph % (Auto) 5.2 L, Gates % (Auto) 7.5, Eos % (Auto) 0.6, Baso % (Auto) 0.4, Absolute Neuts (auto) 11.3 H, Absolute Lymphs (auto) 0.68 L, Nucleated RBC % 0, PT 14.1, INR 1.1, APTT 30.4, Sodium 135 L, Potassium 3.7, Chloride 93 L, Carbon Dioxide 32.0, Anion Gap 10, BUN 55 H, Creatinine 4.21 H, Estim Creat Clear Calc 18.54, Est GFR (MDRD) Af Amer 18 L, Est GFR (MDRD) Non-Af 15 L, BUN/Creatinine Ratio 13.1, Glucose 112 H, Calcium 8.4 L, Total Bilirubin 0.30, AST 17, ALT 17, Alkaline Phosphatase 49, Troponin I High Sens 155 H*, Total Protein 7.4, Albumin 3.2, Globulin 4.2, Albumin/Globulin Ratio 0.8 L, Blood Type A POSITIVE, Antibody Screen NEGATIVE, Crossmatch See Detail 12/27/24 16:30: Crossmatch See Detail 12/27/24 21:05: Hgb 8.2 L, Hct 24.6 L 12/28/24 02:21: Hgb 7.2 L, Hct 22.0 L 12/28/24 08:30: WBC 7.8, RBC 2.15 L, Hgb 7.6 L, Hct 22.6 L, MCV 105.1 H, MCH 35.3 H, MCHC 33.6, RDW Std Deviation 56.3 H, RDW Coeff of Brynn 14.9 H, Plt Count 195, MPV 11.2, Immature Gran % (Auto) 0.300, Neut % (Auto) 76.7 H, Lymph % (Auto) 10.5 L, Gates % (Auto) 11.1 H, Eos % (Auto) 0.9, Baso % (Auto) 0.5, Absolute Neuts (auto) 6.0, Absolute Lymphs (auto) 0.82 L, Nucleated RBC % 0.3, Sodium 132 L, Potassium 4.3, Chloride 95 L, Carbon Dioxide 26.0, Anion Gap 12, BUN 75 H, Creatinine 5.81 H, Estim Creat Clear Calc 13.42, Est GFR (MDRD) Af Amer 13 L, Est GFR (MDRD) Non-Af 10 L, BUN/Creatinine Ratio 12.9, Glucose 81, Calcium 8.9 Micro: Microbiology 12/27/24 17:09 Stool Stool Occult Blood (LAMONTE) - Final Assessment & Plan Assessment/Plan (1) Black stool: PLAN: Plan 69 gentleman with a history of end-stage renal disease known to GI service due to frequent GI bleed from angiodysplastic lesions, peptic ulcer disease arrives with black stool with worsening anemia suspect secondary to upper GI bleed -Patient has a history of bleeding ulcers and has had 4 peptic ulcers cauterized in the past -Patient's hemoglobin 8.9, reportedly last week was 11.4 with baseline somewhere between 8 and 10 based on our labs with some values higher. Fecal occult was negative however given patient's drop in hemoglobin from last week to this week as well as his medical complexity and history feel it is reasonable for inpatient admission and workup, -IV PPI -Trend H&H -N.p.o. at midnight Charges/Coding Visit Charges Inpatient E&M: 91633 Init Hosp L3
[2024-12-28] VITALS (13 sets, daily range): BP systolic 91–128; BP diastolic 58–83; PULSE 65–77; RESP 16–18; TEMP 36.2–37; O2SAT 96–99; BMI 27.8
[2024-12-28 02:28] LABS: Hemoglobin 7.2 g/dL (13.0-16.5)
--- NOTE | 2024-12-28 06:34 | PCM.HOSP.N ---
Hospitalist Note Repeat Hgb 7.2, given cardiac history will order 1 u PRBC and will repeat HH ~ 1 hour following completion.
[2024-12-28] MEDS: Acetaminophen 500 MG Tablet 1000 MG PO ×2 (08:25→22:03)
[2024-12-28] MEDS: Losartan Potassium 25 MG Tablet PO ×2 (08:25→22:03)
[2024-12-28] MEDS: Carvedilol 6.25 MG Tablet PO ×2 (08:26→17:35)
--- NOTE | 2024-12-28 08:58 | PN.HOSP_ITS ---
Reason for Visit Reason for Visit: Diagnoses Melena (12/27/24) Objective Data Objective Data Vital Signs: Vital Signs Temp Pulse Resp BP Pulse Ox O2 Del Method 97.9 F 76 16 123/83 H 99 Room Air 12/28/24 08:19 12/28/24 08:19 12/28/24 08:19 12/28/24 08:19 12/28/24 08:19 12/28/24 08:19 Oxygen Delivery Method Room Air Weight: 194 lb 3.636 oz Body Mass Index (BMI) 27.8 Intake & Output: Intake and Output for Last 24 Hours 12/26/24 12/27/24 12/28/24 23:59 23:59 23:59 Intake Total 145 / 245 100 / 100 Output Total 0 / 0 Balance 145 / 245 100 / 100 Lab / Micro Data 12/28/24 08:30 12/28/24 08:30 Labs: Laboratory Results - last 24 hr 12/27/24 16:30: WBC 13.1 H, RBC 2.47 L, Hgb 8.9 L, Hct 25.7 L, MCV 104.0 H, MCH 36.0 H, MCHC 34.6, RDW Std Deviation 55.6 H, RDW Coeff of Brynn 14.8 H, Plt Count 217, MPV 11.0, Immature Gran % (Auto) 0.400, Neut % (Auto) 85.9 H, Lymph % (Auto) 5.2 L, [place] % (Auto) 7.5, Eos % (Auto) 0.6, Baso % (Auto) 0.4, Absolute Neuts (auto) 11.3 H, Absolute Lymphs (auto) 0.68 L, Nucleated RBC % 0, PT 14.1, INR 1.1, APTT 30.4, Sodium 135 L, Potassium 3.7, Chloride 93 L, Carbon Dioxide 32.0, Anion Gap 10, BUN 55 H, Creatinine 4.21 H, Estim Creat Clear Calc 18.54, Est GFR (MDRD) Af Amer 18 L, Est GFR (MDRD) Non-Af 15 L, BUN/Creatinine Ratio 13.1, Glucose 112 H, Calcium 8.4 L, Total Bilirubin 0.30, AST 17, ALT 17, Alkaline Phosphatase 49, T roponin I High Sens 155 H*, Total Protein 7.4, Albumin 3.2, Globulin 4.2, A lbumin/Globulin Ratio 0.8 L, Blood Type A POSITIVE, Antibody Screen NEGATIVE, Crossmatch See Detail 12/27/24 21:05: Hgb 8.2 L, Hct 24.6 L 12/28/24 02:21: Hgb 7.2 L, Hct 22.0 L Micro: Microbiology 12/27/24 17:09 Stool Stool Occult Blood (LAMONTE) - Final Physical Exam Narrative Seen and examined Patient denies abdominal pain. His main complaint is fatigue. Denies any cardiac complaint chest pain or shortness of breath including dizziness or lightheadedness. Admitted with melena Physical exam General: Alert, Oriented x3, Cooperative HEENT: Atraumatic, PERRLA, EOMI, Normocephalic Oral: No Gingival or Mucosal Lesions/ Ulcerations Neck: Supple, No JVD, Negative Carotid Bruits Chest wall/Lungs: Air entry diminished in bilateral lung bases. No crepitation/rhonchi Cardiovascular: Regular rate, Regular Rhythm, Normal S1, Normal S2, soft systolic murmur. TAVR Abdomen: Bowel Sounds Present, Soft, Non Tender, Non-Distended : No significant urine output. On dialysis. No renal angle tenderness. No suprapubic tenderness. Extremities: Chronic bilateral lower extremity lymphedema, Capillary Refill Less than 3 Seconds Skin: No rashes, No breakdown Musculoskeletal: No Tenderness to Palpation of Joints or Extremities Neurological: Cranial nerves II-XII grossly intact, DTR 2+/4. No acute focal neurological deficit. Psych/Mental Status: Normal Affect, Appropriate. Assessment & Plan Assessment/Plan (1) Black stool: PLAN: Plan 69-year-old gentleman was admitted with 5 to 6 days history of black stool/melena. Patient has increased weakness and fatigue. Hemoglobin dropped from 11.4-8.8 in 1 week. No abdominal pain. 1. Black stool with worsening anemia suspect secondary to upper GI bleed: -Patient has a history of bleeding ulcers and has had 4 peptic ulcers cauterized in the past -His baseline hemoglobin reviewed and stays between generally 8 to 10 g%. Fecal occult was negative. IV PPI. H&H monitoring was done.Hemoglobin is 7.6/hematocrit 22.6%. Platelet count 195K. 1 unit PRBC ordered. GI consulted. #ESRD on HD -Consult nephrology, patient's last treatment was earlier today reports he is able to complete this treatment, next due on -Renal diet -Daily weights, I's and O's #Elevated trop -Patient with chronically elevated troponin, no chest pain or other cardiac complaints so this was not further pursued at this time. # History of coronary artery disease/history of TAVR -Given suspected active GI bleed holding aspirin -Patient does have known coronary artery disease and at some point is supposed to have a stent however had not tolerated aspirin so that had not yet been pursued, patient supposed to have a capsule endoscopy on an outpatient basis -Patient did have TAVR last year, follows with Dr. Palomo with cardiology # History of chronic heart failure with reduced ejection fraction -Patient's last echo 09/28/2024 with EF of 25% -Follows with cardiology on outpatient basis, cardiology note reviewed -Daily weights, I's and O's #Hypertension -Will decrease Coreg and have holding parameters given presenting complaint and blood pressure presently 110/60 in the ED -hold losartan #Tobacco use -Advise cessation -Nicotine replacement available if desired #DVT ppx: SCDs Charges/Coding Visit Charges Inpatient E&M: 60170 Subs Hosp L2
[2024-12-28 09:14] LABS: Absolute Lymphocyte Count 0.82 X10^3/uL (0.83-4.51); Basophil# 0.04 X10^3/uL; Basophil% 0.5 % (0-1); Eosinophil# 0.07 X10^3/uL; Eosinophils% 0.9 % (0-5); Hematocrit 22.6 % (40-54); Hemoglobin 7.6 g/dL (13.0-16.5); Lymphocyte # 0.82 X10^3/ul (0.83-4.51); Lymphocyte % 10.5 % (19-41); Mean Corp Hgb Conc 33.6 g/dL (32-36); Mean Corpuscular Hgb 35.3 pg (27.0-32.0); Mean Corpuscular Volume 105.1 fL (80-94); Mean Platelet Vol. 11.2 fl (6.2-12.0); Monocyte# 0.87 X10^3/uL; Monocyte% 11.1 % (0-10); NRBC Flagged by Analyzer 0.3 % (0-5); Neutrophil # 6.02 X10^3/uL (2.7-7.7); Neutrophil % 76.7 % (47-70); Platelet Count 195 K/mm3 (150-450); RBC Distribution Width CV 14.9 % (11.6-14.6); RBC Distribution Width SD 56.3 fl (35.1-43.9); Red Blood Count 2.15 M/mm3 (4.6-6.2); White Blood Count 7.8 K/mm3 (4.4-11.0)
[2024-12-28 09:47] LABS: Anion Gap 12 (5-15); BUN 75 mg/dL (7-18); BUN/Creat Ratio 12.9 RATIO (10-20); Calcium,Total 8.9 mg/dL (8.5-10.1); Chloride 95 mmol/L (98-107); Creatinine, Serum 5.81 mg/dL (0.70-1.30); EST Glomerular Filtration Rate 10 mL/min (>60); Est Glom Filt Rate - Afr Amer 13 mL/min (>60); Estimated Creatinine Clearance 13.42 ml/min; Glucose 81 mg/dL (74-106); Potassium 4.3 mmol/L (3.5-5.1); Sodium Level 132 mmol/L (136-145)
--- NOTE | 2024-12-28 12:09 | PCM.CONS.R ---
Assessment & Plan Assessment/Plan (1) ESRD (end stage renal disease) on dialysis: (2) Black stool: (3) Acute anemia: PLAN: Plan This is a pleasant 69-year-old male with past medical history significant for ESRD who dialyzes Thursday at [facility] (EDW 86kg), last dialyzed yesterday who presented to the emergency room with complaints of lethargy, feeling unwell and noted black stools. Patient was admitted. Nephrology consulted for hemodialysis needs. There is no acute indication for [facility] today, patient's last hemodialysis was yesterday, he did not receive heparin with dialysis yesterday. Patient's hemoglobin trends at [facility] have been above 11 over the past month, last hgb 11.4 on 12/20/2024 and 11.3 on 12/13/2024. Patient received 1 unit PRBC today. He is on PPI drip. GI consulted. Further orders forthcoming as hospitalization evolves, thank you for allowing us to participate in the care of Mr. Dumont. HPI Consult Data Date of Consult: 12/28/24 HPI Narrative HPI Narrative: BINDU DUMONT, is a 69 M with past medical history significant for ESRD who dialyzes at [facility] Thursday who presented to the hospital yesterday after dialysis session for complaints of feeling tired, no energy and noting black tarry stools. Patient has history of hypertension, coronary artery disease, TAVR. Patient also has history of recurrent upper GI bleed with ulcers cauterized within past year. Patient sitting in chair, at bedside. Patient did receive 1 unit PRBC early this morning. No other complaints. [facility], [facility] Medical History History of transcatheter aortic valve replacement (TAVR) Wears glasses History of steroid therapy History of renal disease Low iron Rheumatoid arthritis Back pain Migraine headache Dietary restriction History of diverticulitis History of ulceration Shortness of breath on exertion Lymphedema History of echocardiogram Cardiology follow-up encounter Hypertension Chronic renal failure Anemia DVT (deep venous thrombosis) End stage renal disease on dialysis Secondary hyperparathyroidism Generalized weakness Acute on chronic anemia Chronic anemia Acute upper GI bleed History of end stage renal disease History of renal dialysis Dialysis patient Hepatitis Smoker Bursitis Problem with dialysis access Rectal bleeding Subclavian aneurysm Kidney failure due to vascular disorder Cardiac disease Rheumatoid vasculitis Rheumatoid aortitis Home Medications ?Medication ?Instructions ?Recorded ?Last Taken ?Type vitamin B complex-vitamin C-folic 1 tab PO DAILY RENAL HEALTH 12/12/23 12/27/24 History acid 0.8 mg tablet (Nephro-Christiano) cyanocobalamin (vitamin B-12) 1,000 mcg PO DAILY supplement 01/12/24 12/27/24 History 1,000 mcg tablet (Vitamin B-12) acetaminophen 500 mg tablet 1,000 mg PO BID PAIN 12/02/24 12/27/24 History carvedilol 12.5 mg tablet 12.5 mg PO BID 12/02/24 12/27/24 History coenzyme Q10 200 mg capsule (Co 200 mg PO QDAY 12/02/24 12/27/24 History Q-10) epoetin beta, methoxy peg subcut PRN low blood counts 12/02/24 Unknown History losartan 25 mg tablet 25 mg PO BID 12/27/24 12/26/24 History sevelamer carbonate 800 mg tablet 800 mg PO TIDCM 12/27/24 12/27/24 History Allergy/AdvReac Type Severity Reaction Status Date / Time No Known Allergies Allergy Verified 12/27/24 15:26 Family History Other Cancer Diabetes Heart disease Surgical History History of cardiac catheterization Hx of colonoscopy with polypectomy History of esophagogastroduodenoscopy (EGD) Hx of arteriovenostomy for renal dialysis (~12/2019) Status post insertion of dialysis catheter (~11/2019) History of umbilical hernia s/p subclavian graft S/P knee surgery History of bicuspid aortic valve Social History household members: spouse housing: house Smoking Status: Heavy Smoker (>10/day) alcohol intake: never substance use type: does not use caffeine: Yes Type: coffee Number of servings: 2 ROS ROS Narrative As in HPI Physical Exam Narrative Alert and oriented x 3, no apparent distress S1, S2, RRR Lung sounds clear Abdomen soft, nontender No significant pitting edema bilateral lower legs AV fistula left arm Lab / Micro Data 12/28/24 08:30 12/28/24 08:30 Labs: Laboratory Results - last 24 hr 12/27/24 16:30: WBC 13.1 H, RBC 2.47 L, Hgb 8.9 L, Hct 25.7 L, MCV 104.0 H, MCH 36.0 H, MCHC 34.6, RDW Std Deviation 55.6 H, RDW Coeff of Brynn 14.8 H, Plt Count 217, MPV 11.0, Immature Gran % (Auto) 0.400, Neut % (Auto) 85.9 H, Lymph % (Auto) 5.2 L, [place] % (Auto) 7.5, Eos % (Auto) 0.6, Baso % (Auto) 0.4, Absolute Neuts (auto) 11.3 H, Absolute Lymphs (auto) 0.68 L, Nucleated RBC % 0, PT 14.1, INR 1.1, APTT 30.4, Sodium 135 L, Potassium 3.7, Chloride 93 L, Carbon Dioxide 32.0, Anion Gap 10, BUN 55 H, Creatinine 4.21 H, Estim Creat Clear Calc 18.54, Est GFR (MDRD) Af Amer 18 L, Est GFR (MDRD) Non-Af 15 L, BUN/Creatinine Ratio 13.1, Glucose 112 H, Calcium 8.4 L, Total Bilirubin 0.30, AST 17, ALT 17, Alkaline Phosphatase 49, Troponin I High Sens 155 H*, Total Protein 7.4, Albumin 3.2, Globulin 4.2, Albumin/Globulin Ratio 0.8 L, Blood Type A POSITIVE, Antibody Screen NEGATIVE, Crossmatch See Detail 12/27/24 16:30: Crossmatch See Detail 12/27/24 21:05: Hgb 8.2 L, Hct 24.6 L 12/28/24 02:21: Hgb 7.2 L, Hct 22.0 L 12/28/24 08:30: WBC 7.8, RBC 2.15 L, Hgb 7.6 L, Hct 22.6 L, MCV 105.1 H, MCH 35.3 H, MCHC 33.6, RDW Std Deviation 56.3 H, RDW Coeff of Brynn 14.9 H, Plt Count 195, MPV 11.2, Immature Gran % (Auto) 0.300, Neut % (Auto) 76.7 H, Lymph % (Auto) 10.5 L, [place] % (Auto) 11.1 H, Eos % (Auto) 0.9, Baso % (Auto) 0.5, Absolute Neuts (auto) 6.0, Absolute Lymphs (auto) 0.82 L, Nucleated RBC % 0.3, Sodium 132 L, Potassium 4.3, Chloride 95 L, Carbon Dioxide 26.0, Anion Gap 12, BUN 75 H, Creatinine 5.81 H, Estim Creat Clear Calc 13.42, Est GFR (MDRD) Af Amer 13 L, Est GFR (MDRD) Non-Af 10 L, BUN/Creatinine Ratio 12.9, Glucose 81, Calcium 8.9 Micro: Microbiology 12/27/24 17:09 Stool Stool Occult Blood (LAMONTE) - Final
--- NOTE | 2024-12-28 12:57 | CASEMGMT ---
REBECCA REDMOND NOTE: Fabby @ [facility] pt has been admitted to [facility]. She states, I think his chair time is 10 AM, //Thu. Gordon JEROME RN, CM
[2024-12-28] MEDS: Pantoprazole Sodium 40 MG in 0.9% Normal Saline (100mL MB+) 100 ML 330 MG IV ×2 (13:48→22:07)
--- NOTE | 2024-12-28 14:26 | PN_ITS ---
Progress Note Patient has been n.p.o. after midnight for EGD today. He did not have any more signs of GI bleeding today. Physical Exam Const alert, oriented x3, no apparent distress and healthy appearing General Appearance: cooperative GI normal to inspection, nondistended, normoactive bowel sounds, soft to palpation, non-tender and non-distended Percussion: normal to percussion Rectal Exam: deferred Assessment & Plan Assessment/Plan (1) Black stool: PLAN: Plan 69 gentleman with a history of end-stage renal disease known to GI service due to frequent GI bleed from angiodysplastic lesions, peptic ulcer disease arrives with black stool with worsening anemia suspect secondary to upper GI bleed -Patient has a history of bleeding ulcers and has had 4 peptic ulcers cauterized in the past -Patient's hemoglobin 8.9, reportedly last week was 11.4 with baseline somewhere between 8 and 10 based on our labs with some values higher. Fecal occult was negative however given patient's drop in hemoglobin from last week to this week as well as his medical complexity and history feel it is reasonable for inpatien t admission and workup, -IV PPI -Trend H&H -He was explained alternatives, risk and benefits include not withstanding bleeding, infection, sepsis, perforation, need for emergent urgent .-ASA of 3. Visit Charges Inpatient E&M: 93421 Subs Hosp L2
[2024-12-28 14:28] LABS: Hematocrit 24.9 % (40-54); Hemoglobin 8.1 g/dL (13.0-16.5)
--- NOTE | 2024-12-28 14:31 | PCM.PRE.AN2 ---
ASA Classification* ASA Classification ASA Classification: 3 Assessment & Plan Anesthesia* Anesthesia Assessment Anesthesia Assessment: Discussed sedation and/or anesthesia options, risks, benefits, and alternatives with patient/parents/legal guardian/POA. Questions invited. The patient/parents/legal guardian/POA seems to understand and agrees to proceed with anesthesia plan. Reviewed the physical assessment, medical history, allergy history and patient home medications list prior to surgery/procedure/anesthetic and documented any changes. Performed airway and anesthesia risk assessments. Anesthesia Type Anesthesia Type: MAC History Source History Obtained from:: Patient and Chart Anesthesia Focused Assessment* Temperature: 98.6 F Pulse Rate: 68 Blood Pressure: 115/80 Respiratory Rate: 18 Pulse Ox: 99 Oxygen Delivery Method: Room Air Airway Assessment Mouth opens: >3 cm Mallampati Score: I Teeth Condition: Missing (Multiple missing teeth.) Neck Range of motion (ROM): Limited ROM Focused Labs Anesthesia Preop lab: CBC WBC 7.8 K/mm3 (4.4-11.0) 12/28/24 08:30 12/28/24 RBC 2.15 M/mm3 (4.6-6.2) L 12/28/24 08:30 12/28/24 Hgb 8.1 g/dL (13.0-16.5) L 12/28/24 14:21 12/28/24 Hct 24.9 % (40-54) L 12/28/24 14:21 12/28/24 Plt Count 195 K/mm3 (150-450) 12/28/24 08:30 12/28/24 CHEMISTRY Potassium 4.3 mmol/L (3.5-5.1) 12/28/24 08:30 12/28/24 Sodium 132 mmol/L (136-145) L 12/28/24 08:30 12/28/24 Magnesium 2.9 mg/dL (1.6-2.6) H 03/11/24 05:35 03/11/24 Phosphorus 4.5 mg/dL (2.5-4.9) 03/11/24 05:35 03/11/24 BUN 75 mg/dL (7-18) H 12/28/24 08:30 12/28/24 Creatinine 5.81 mg/dL (0.70-1.30) H 12/28/24 08:30 12/28/24 Glucose 81 mg/dL (74-106) 12/28/24 08:30 12/28/24 COAG PT 14.1 SECONDS (11.7-14.9) 12/27/24 16:30 12/27/24 Pre-Assessment Diagnosis/Proposed Procedure Planned Operative Procedure(s): Esophagogastroduodenoscopy. 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 When Was Last Pacemaker Check QUESTION #4 FULL TEXT: You/Your Family Experience fever (hyperthermia) with Anesthesia Last Oral Intake Last Oral intake: Last Oral Intake NPO since Meds taken in AM with sips of water? Meds patient instructed to take am of surgery Any additional information?: Yes NPO since: 00:00 Meds taken in AM with sips of water?: Yes PONV PONV - head mixer: PONV - head mixer Female HX of Motion Sickness HX of N/V After Surgery Non-Smoker Duration of Surgery greater than 60 minutes Number of Risk Factors PONV Score Height & Weight Height & Weight: Anesthesia: Height & Weight Height 5 ft 10 in 12/28/24 13:02 Weight: 88.1 kg 12/28/24 13:02 Body Mass Index (BMI) 27.8 12/28/24 04:29 Respiratory Assessment Respiratory Assessment - head mixer: Respiratory Tract Infection Hx - head mixer Hx Respiratory Tract Infection No 02/08/24 11:38 Any additional information?: Yes Hx Respiratory Tract Infection: Yes (Patient is recovering from a cold. Still some productive cough.) STOP Sleep Apnea STOP Sleep Apnea - head mixer: STOP Sleep Apnea - head mixer Hx Hypertension Yes 12/27/24 20:32 Hx Sleep Apnea No 12/27/24 20:32 CPAP No 02/10/24 07:33 BIPAP Do you snore loudly (louder No 12/27/24 20:32 than talking or can be heard Do you often feel tired/ No 12/27/24 20:32 fatigued/ sleepy during daytime? Has anyone observed you stop No 12/27/24 20:32 breathing during sleep? STOP Results Negative 12/27/24 20:32 QUESTION #5 FULL TEXT : Do you snore loudly (louder than talking or can be heard through closed doors)? 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 Specify any problems Hx of Preganancy in last 3 N/A 12/27/24 20:32 Months Nurse Filling Out Transfusion RSMAILES 12/27/24 20:32 & Questions: Date: 12/27/24 12/27/24 20:32 Time: 20:52 12/27/24 20:32 Patient unable to answer at Yes 12/27/24 20:32 this time (ie. confused, unrespo /Reproduction History /Reproductive History - head mixer: /Reproductive Hx- head mixer Hx Now Gestational Age (in weeks): EDC: Hx Hx Para Hx Section SAB No 02/08/24 11:38 Active Medications Active Medications: Current Medications Generic Name Dose Route Start Last Admin Trade Name Freq PRN Reason Stop Dose Admin Acetaminophen 1,000 mg 12/27/24 22:00 12/28/24 08:25 Acetaminophen 500 Mg Tablet PO 1,000 mg BID DEBORAH Administration Albuterol Sulfate 2.5 mg 12/27/24 20:31 Albuterol 2.5 Mg/3 Ml Vial.Neb. INHALATION Q2H PRN PRN SOB &/OR WHEEZING Carvedilol 6.25 mg 12/28/24 08:00 12/28/24 08:26 Carvedilol 6.25 Mg Tablet PO 6.25 mg BIDCM [facility] Administration Protocol Pantoprazole Sodium 40 mg/ 110 mls @ 330 mls/hr 12/27/24 22:00 12/28/24 14:14 Sodium Chloride IV Infused Q12 DEBORAH Infusion Losartan Potassium 25 mg 12/28/24 10:00 12/28/24 08:25 Losartan Potassium 25 Mg Tablet PO 25 mg DAILY DEBORAH Administration Protocol Losartan Potassium 25 mg 12/27/24 22:00 12/27/24 22:46 Losartan Potassium 25 Mg Tablet PO 25 mg [id number]@[id number] [facility] Administration Protocol Melatonin 3 mg 12/27/24 20:31 Melatonin 3 Mg Tablet PO QHS PRN PRN INSOMNIA Ondansetron HCl 4 mg 12/27/24 20:31 Ondansetron 4 Mg/2 Ml Vial IV Q8H PRN PRN NAUSEA/VOMITING Senna/Docusate Sodium 2 tablet 12/27/24 20:31 Senna/Docusate Sodium 1 Tablet PO BID PRN PRN Constipation Sevelamer Carbonate 800 mg 12/28/24 08:00 12/28/24 13:41 Sevelamer Carbonate 800 Mg Tablet PO Not Given TIDCM [facility] Sodium Chloride 10 - 40 ml 12/27/24 20:38 0.9% Saline Lock 10 Ml Syringe IV UD PRN SALINE FLUSH PFSH Medical History History of transcatheter aortic valve replacement (TAVR) Wears glasses History of steroid therapy History of renal disease Low iron Rheumatoid arthritis Back pain Migraine headache Dietary restriction History of diverticulitis History of ulceration Shortness of breath on exertion Lymphedema History of echocardiogram Cardiology follow-up encounter Hypertension Chronic renal failure Anemia DVT (deep venous thrombosis) End stage renal disease on dialysis Secondary hyperparathyroidism Generalized weakness Acute on chronic anemia Chronic anemia Acute upper GI bleed History of end stage renal disease History of renal dialysis Dialysis patient Hepatitis Smoker Bursitis Problem with dialysis access Rectal bleeding Subclavian aneurysm Kidney failure due to vascular disorder Cardiac disease Rheumatoid vasculitis Rheumatoid aortitis Home Medications ?Medication ?Instructions ?Recorded ?Last Taken ?Type vitamin B complex-vitamin C-folic 1 tab PO DAILY [facility] 12/12/23 12/27/24 History acid 0.8 mg tablet (Nephro-Christiano) cyanocobalamin (vitamin B-12) 1,000 mcg PO DAILY supplement 01/12/24 12/27/24 History 1,000 mcg tablet (Vitamin B-12) acetaminophen 500 mg tablet 1,000 mg PO BID PAIN 12/02/24 12/28/24 History carvedilol 12.5 mg tablet 12.5 mg PO BID High bp 12/02/24 12/28/24 History coenzyme Q10 200 mg capsule (Co 200 mg PO QDAY 12/02/24 12/27/24 History Q-10) epoetin beta, methoxy peg subcut PRN low blood counts 12/02/24 Unknown History losartan 25 mg tablet 25 mg PO BID high bp 12/27/24 12/28/24 History sevelamer carbonate 800 mg tablet 800 mg PO TIDCM 12/27/24 12/27/24 History Allergy/AdvReac Type Severity Reaction Status Date / Time No Known Allergies Allergy Verified 12/27/24 15:26 Family History Other Cancer Diabetes Heart disease Surgical History History of cardiac catheterization Hx of colonoscopy with polypectomy History of esophagogastroduodenoscopy (EGD) Hx of arteriovenostomy for renal dialysis (~12/2019) Status post insertion of dialysis catheter (~11/2019) History of umbilical hernia s/p subclavian graft S/P knee surgery History of bicuspid aortic valve Social History household members: spouse housing: house Smoking Status: Heavy Smoker (>10/day) alcohol intake: never substance use type: does not use caffeine: Yes Type: coffee Number of servings: 2 Review of Systems (Anesthesia) ROS Narrative System reviewed and no additional complaints, except as documented.
--- NOTE | 2024-12-28 15:05 | OP.EGD_ITS ---
Patient Name: Barry Joe Procedure Date: 12/28/2024 2:33 PM Date of : 1955 Age: 69 Procedure: Upper GI endoscopy Indications: Melena Providers: Cade Ross DO Medicines: Monitored Anesthesia Care Patient Profile: This is a 69 year old male. Refer to note in patient chart for documentation of history and physical. Patient has symptoms. Complications: No immediate complications. Procedure: Pre-Anesthesia Assessment: - Prior to the procedure, a History and Physical was performed, and patient medications and allergies were reviewed. The patient is competent. The risks and benefits of the procedure and the sedation options and risks were discussed with the patient. All questions were answered and informed consent was obtained. Patient identification and proposed procedure were verified by the physician in the pre-procedure area. Mental Status Examination: alert and oriented. Airway Examination: normal oropharyngeal airway and neck mobility. Respiratory Examination: clear to auscultation. CV Examination: normal. Prophylactic Antibiotics: The patient does not require prophylactic antibiotics. Prior Anticoagulants: The patient has taken no anticoagulant or antiplatelet agents. ASA Grade Assessment: II - A patient with mild systemic disease. After reviewing the risks and benefits, the patient was deemed in satisfactory condition to undergo the procedure. The anesthesia plan was to use monitored anesthesia care (MAC). Immediately prior to administration of medications, the patient was re-assessed for adequacy to receive sedatives. The heart rate, respiratory rate, oxygen saturations, blood pressure, adequacy of pulmonary ventilation, and response to care were monitored throughout the procedure. The physical status of the patient was re-assessed after the procedure. After obtaining informed consent, the endoscope was passed under direct vision. Throughout the procedure, the patient's blood pressure, pulse, and oxygen saturations were monitored continuously. The Colonoscope was introduced through the mouth, and advanced to the jejunum. Small bowel enteroscopy was deemed necessary. The upper GI endoscopy was accomplished without difficulty. The patient tolerated the procedure well. Scope In: 2:50:32 PM Scope Out: 3:00:13 PM Total Procedure Duration Time 0 hours 9 minutes 41 seconds Findings: The examined esophagus was normal. A single 5 mm angiodysplastic lesion with bleeding was found in the gastric fundus. Coagulation for hemostasis using heater probe was successful. Estimated blood loss was minimal. The examined duodenum was normal. The examined jejunum was normal. Impression: - Normal esophagus. - A single bleeding angiodysplastic lesion in the stomach. Treated with a heater probe. - Normal examined duodenum. - Normal examined jejunum. - No specimens collected. Recommendation: - Return patient to [facility] for ongoing care. - Resume regular diet. - Use Protonix (pantoprazole) 40 mg PO BID. - Continue present medications. Procedure Code(s): --- Professional --- 53496, Small intestinal endoscopy, enteroscopy beyond second portion of duodenum, not including ileum; with control of bleeding (eg, injection, bipolar cautery, unipolar cautery, laser, heater probe, stapler, plasma clicker operator) CPT copyright 2021 [employer]. All rights reserved. The codes documented in this report are preliminary and upon death surveys coder review may be revised to meet current compliance requirements. Cade Ross DO 12/28/2024 3:05:27 PM This report has been signed electronically. Number of Addenda: 0 Note Initiated On: 12/28/2024 2:33 PM
--- NOTE | 2024-12-28 15:06 | OP.CCLET_ITS ---
12/28/2024 Bekah Washington Md Re : Upper GI endoscopy procedure for Barry Joe Sabino Washington This procedure was performed on Saturday, December 28, 2024. My impressions and recommendations are as follows: Impressions : - Normal esophagus. - A single bleeding angiodysplastic lesion in the stomach. Treated with a heater probe. - Normal examined duodenum. - Normal examined jejunum. - No specimens collected. Recommendations : - Return patient to [facility] for ongoing care. - Resume regular diet. - Use Protonix (pantoprazole) 40 mg PO BID. - Continue present medications. My findings are described in the full procedure note, which is enclosed. If I can be of further assistance, please feel free to contact me at . Sincerely, Cade Ross, 12/28/2024 3:05:27 PM This report has been signed electronically.
--- NOTE | 2024-12-28 15:06 | PCM.PN.BLA ---
Progress Note Follow-up in office: 7 days Okay to restart continue to hold antiplatelets and anticoagulants until patient is seen in office New GI related medications for discharge: [Protonix 40 mg p.o. twice daily] Follow-up procedures needed: [Capsule endoscopy] Visit Charges Inpatient E&M: 88308 Subs Hosp L2
--- NOTE | 2024-12-28 15:14 | PCM.POST.ANE ---
Anesthesia: Postop Eval I Current Vital Signs Temperature: 97.1 F Pulse Rate: 71 Blood Pressure: 114/70 Respiratory Rate: 16 Pulse Ox: 97 Oxygen Delivery Method: Room Air Assessment Airway patent: Yes Spontaneous unlabored respirations: Yes Mental status: Awake nausea: No Vomiting: No Anesthesia Complication: No Fluid Hydration Crystalloid volume administer (ml): 30 Total IV fluid infused: 30 Progress Note Anesthesia document: Postop Eval 1 completed: Yes
--- NOTE | 2024-12-28 15:52 | CHAPLAIN ---
Type of Pastoral Visit _x__ Initial Visit ___ Follow-up Visit ___ On-call Visit ___ General Patient Visit ___ Spiritual Assessment ___ Family Conference ___ Bereavement ___ Rapid Response ___ Code Blue ___ Other (describe below) Pastoral Care Referral From _x__ Patient ___ Family ___ Nurse ___ Physician ___ Fruit Bar Maker ___ Hand Ii Thermal Cutter ___ Other (describe below) Sacrament/Intervention _x__ Active listening ___ Anointing ___ Congregation ___ Bereavement ___ Communion ___ Mee exploration ___ _x__ Life review ___ Prayer ___ Reconciliation ___ Sacrament of Sick ___ Supportive presence ___ Wedding ___ Other (describe below) Pastoral Comments patient and spouse are in the room; pt is very welcoming and said he was glad to have the bean viner come into room to visit; pt speaks of a great relationship for his father with the hospital bean viner that saw here when he was in need; pt is talkative about his situation but then he was being taken to a procedure and the visit ended; offer of ongoing support given to pt and spouse
--- NOTE | 2024-12-28 16:57 | PCM.POSTANE2 ---
Anesthesia Postop Eval I Sum Postop Eval Completion status Anesthesia document: Postop Eval 1 completed: Yes Anesthesia Postop Eval I Summary Anesthesia Postop Eval I Summary: Anesthesia Postop Eval I: Assessment Summary Airway patent Yes 12/28/24 15:15 [email or web address] Spontaneous unlabored Yes 12/28/24 15:15 [email or web address] respirations Mental status Awake 12/28/24 15:15 [email or web address] nausea No 12/28/24 15:15 [email or web address] Vomiting No 12/28/24 15:15 [email or web address] Anesthesia Postop Eval I: Fluid Summary Crystalloid volume administer 30 12/28/24 15:15 [email or web address] (ml) Colloids volume administered ( ml) Blood Product volume administered (ml) Total IV fluid infused 30 12/28/24 15:15 [email or web address] Anesthesia Postop Eval I: Summary Notes Anesthesia Complication No 12/28/24 15:15 [email or web address] Anesthesia Complication Comment: Post-operative progress note Anesthesia: Postop Eval II Evaluation Mental status: Awake Pain Level: 0 nausea: No Vomiting: No
[2024-12-28] MEDS: SEVELAMER CARBONATE 800 MG TABLET PO (17:35)
[2024-12-28] MEDS: 0.9% Saline Lock 10 ML Syringe IV (22:07)
[2024-12-29] VITALS (13 sets, daily range): BP systolic 107–344; BP diastolic 74–98; PULSE 61–78; RESP 12–16; TEMP 36.7–37.1; O2SAT 98–100; BMI 28.7; BMI 27.8
[2024-12-29] MEDS: PureFlow B 2K Dialysis Soln 1 BAG 6 BAG PF (08:18)
[2024-12-29] MEDS: 0.9% Normal Saline 1,000 ML IV.SOLN. 1000 ML OPERA.SITE (08:18)
[2024-12-29] MEDS: Epoetin Alfa epbx 10,000 UNIT/ML 20000 UNIT IV (10:16)
--- NOTE | 2024-12-29 10:23 | DCINST_ITS ---
Discharge Instructions Diet Discharge Diet: Low fat / Low cholesterol, 8 Cup Fluid Restriction and Renal Diet DC O2, CPAP, BIPAP needs Home O2 Discharge instructions: No Dressing / Incision Discharge Activity: Return to Normal Activity Weight Bearing Status: Weight bearing as tolerated Dressing / Incision Call your doctor if you observe: Fever of 101 or Higher, Coldness, Increased Pain, Numbness or Tingling, Change in Color, Inability to urinate, Inability to have a bowel movement, Shortness of breath, Dizziness, Fainting spells, Swelling in the ankles, Chest pain, Prolonged hiccupping, Increased palpitations (irregular heartbeat) and Calf discomfort Follow Up Care When: IN 2 WEEKS Test Results: Test results from this visit will be discussed in further detail at your follow- up appointment, if applicable. Discharge Plan Admission Admit Date/Time: 12/27/24 19:38 Primary Reason for Your Visit: Upper GI bleed Attending Provider: Kian Calvert Primary Care Provider: Bekah Washington Consulting Providers: Hanh Russo; Yara Delacruz Discharge Orders/Prescriptions Prescriptions: New losartan 25 mg Tablet 25 mg PO QHS Qty: 0 0RF losartan 25 mg Tablet 25 mg PO [id number] Qty: 0 0RF pantoprazole [Protonix] 40 mg tablet,delayed release (DR/EC) 40 mg PO BID Qty: 60 1RF ferrous sulfate 325 mg (65 mg iron) tablet 325 mg PO QODAY Qty: 30 2RF ascorbic acid (vitamin C) 500 mg tablet 500 mg PO BID Qty: 60 2RF Continued carvedilol 12.5 mg tablet 12.5 mg PO BID Rx Instructions: Does not take on Tuesdays, , and Saturdays due to dialysis coenzyme Q10 [Co Q-10] 200 mg capsule 200 mg PO QDAY epoetin beta, methoxy peg [Mircera] subcut PRN (Reason: low blood counts) Rx Instructions: administered by dialysis infusion acetaminophen 500 mg tablet 1,000 mg PO BID Nephro-Christiano 0.8 mg tablet 1 tab PO DAILY cyanocobalamin (vitamin B-12) [Vitamin B-12] 1,000 mcg tablet 1,000 mcg PO DAILY sevelamer carbonate 800 mg tablet 800 mg PO TIDCM Discontinued losartan 25 mg tablet 25 mg PO BID Rx Instructions: only takes evening dose on thursday, , and thursday Referrals / Follow Up: Hanh Russo MD [Med Staff - Consulting] - Within 1 Month (For ESRD hemodialysis and anemia of chronic disease/CKD) Bekah Washington MD [Primary Care Provider] - 01/25/25 8:30 am Cade Ross DO [Med Staff - Active Staff] - Within 1 Week Disposition Disposition (needs filled in before D/C Order can be placed): Home, Self Care
[2024-12-29 10:40] LABS: Absolute Lymphocyte Count 0.69 X10^3/uL (0.83-4.51); Absolute Neutrophil Count 6.7 X10^3/uL (2.0-7.7); Basophil# 0.04 X10^3/uL; Basophil% 0.5 % (0-1); Eosinophil# 0.12 X10^3/uL; Eosinophils% 1.4 % (0-5); Hematocrit 25.3 % (40-54); Hemoglobin 8.3 g/dL (13.0-16.5); Lymphocyte # 0.69 X10^3/ul (0.83-4.51); Lymphocyte % 8.2 % (19-41); Mean Corp Hgb Conc 32.8 g/dL (32-36); Mean Corpuscular Hgb 33.6 pg (27.0-32.0); Mean Corpuscular Volume 102.4 fL (80-94); Mean Platelet Vol. 10.5 fl (6.2-12.0); Monocyte# 0.82 X10^3/uL; Monocyte% 9.7 % (0-10); NRBC Flagged by Analyzer 0 % (0-5); Neutrophil # 6.73 X10^3/uL (2.7-7.7); Neutrophil % 79.8 % (47-70); Platelet Count 187 K/mm3 (150-450); RBC Distribution Width CV 16.4 % (11.6-14.6); RBC Distribution Width SD 61.8 fl (35.1-43.9); Red Blood Count 2.47 M/mm3 (4.6-6.2); White Blood Count 8.4 K/mm3 (4.4-11.0)
[2024-12-29 11:29] LABS: Anion Gap 10 (5-15); BUN 59 mg/dL (7-18); BUN/Creat Ratio 13.3 RATIO (10-20); Calcium,Total 9.3 mg/dL (8.5-10.1); Chloride 98 mmol/L (98-107); Creatinine, Serum 4.44 mg/dL (0.70-1.30); EST Glomerular Filtration Rate 14 mL/min (>60); Est Glom Filt Rate - Afr Amer 17 mL/min (>60); Estimated Creatinine Clearance 17.79 ml/min; Glucose 107 mg/dL (74-106); Potassium 3.8 mmol/L (3.5-5.1); Sodium Level 136 mmol/L (136-145)
--- NOTE | 2024-12-29 11:45 | PCM.DC.SUM ---
Providers Date of Admission: 12/27/24 Date of Discharge: 12/29/24 Primary Care Physician: Dr. Bekah Washington MD Consultations 12/27/24 20:31 Consult: Gastroenterology Routine Consulting Provider: [facility] Reason for Consult: GI bleed EMERGENT Consult: No Notified: Yes Date Notified: 12/27/24 Time Notified: 20:18 Method of Notification: ED Physician Initiated Consult: Nephrology Routine Consulting Provider: Hanh Russo Reason for Consult: esrd on hd EMERGENT Consult: No Notified: Yes Date Notified: 12/27/24 Time Notified: 21:47 Method of Notification: Answering Service Reason For Visit: GASTROINTESTINAL BLEED ANEMIA Diagnosis Discharge Diagnosis (1) Black stool: Status: Acute Code(s): K92.1 - Melena Plan 69-year-old gentleman was admitted with 5 to 6 days history of black stool/melena. Patient has increased weakness and fatigue. Hemoglobin dropped from 11.4-8.8 in 1 week. No abdominal pain. 1. Black stool with worsening anemia suspect secondary to upper GI bleed: -Patient has a history of bleeding ulcers and has had 4 peptic ulcers cauterized in the past -His baseline hemoglobin reviewed and stays between generally 8 to 10 g%. Fecal occult was negative. IV PPI. H&H monitoring was done.Hemoglobin is 7.6/hematocrit 22.6%. Platelet count 195K. 1 unit PRBC ordered. GI consulted. 12/29/2024: Patient had EGD on 12/28: Impressions : - Normal esophagus. - A single bleeding angiodysplastic lesion in the stomach. Treated with a heater probe. - Normal examined duodenum. - Normal examined jejunum. - No specimens collected. Recommendations : - [facility] care. - Resume regular diet. - Use Protonix (pantoprazole) 40 mg PO BID. Patient is discharged on pantoprazole 40 mg p.o. twice daily. IV iron was given for anemia. Hemoglobin was 8 .3 in the morning, microcytic in nature. Prescription given for pantoprazole, ferrous sulfate and ascorbic acid. Follow-up with GI in 1 week. Severe anemia due to anemia of blood loss and CKD #ESRD on HD -Consult nephrology, patient's last treatment was earlier today reports he is able to complete this treatment, next due on -Renal diet -Daily weights, I's and O's 12/29: Patient was dialyzed today. Dialysis days are Thursday and Thursday. #Elevated trop -Patient with chronically elevated troponin, no chest pain or other cardiac complaints so this was not further pursued at this time. Elevated troponin due to demand ischemia # History of coronary artery disease/history of TAVR -Given suspected active GI bleed holding aspirin -Patient does have known coronary artery disease and at some point is supposed to have a stent however had not tolerated aspirin so that had not yet been pursued, patient supposed to have a capsule endoscopy on an outpatient basis -Patient did have TAVR last year, follows with Dr. Palomo with cardiology # History of chronic heart failure with reduced ejection fraction -Patient's last echo 09/28/2024 with EF of 25% -Follows with cardiology on outpatient basis, cardiology note reviewed -Daily weights, I's and O's #Hypertension -Will decrease Coreg and have holding parameters given presenting complaint and blood pressure presently 110/60 in the ED -hold losartan 12/29: Losartan dosing frequency was corrected. Patient on 25 mg daily at bedtime. 25 mg a.m. only on the days of not hemodialysis. Therefore Thursday and Thursday. #Tobacco use -Advise cessation -Nicotine replacement available if desired #DVT ppx: SCDs Discharge medication reconciliation done. Discharge follow-up instructions completed. Discharge process discussed with the patient and all questions were answered to patient's satisfaction. Follow with PCP in 1 to 2 weeks Total time spent, exact 35 minutes on discharge meds reconciliation, examination, coordination of care with nurses and ancillary staff, review of imaging and blood test and discussion with the patient on follow-up instructions. Medications at Discharge Home Medications vitamin B complex-vitamin C-folic acid 0.8 mg tablet (Nephro-Christiano) 1 tab PO DAILY RENAL HEALTH 12/12/23 cyanocobalamin (vitamin B-12) 1,000 mcg tablet (Vitamin B-12) 1,000 mcg PO DAILY supplement 01/12/24 acetaminophen 500 mg tablet 1,000 mg PO BID PAIN 12/02/24 carvedilol 12.5 mg tablet 12.5 mg PO BID High bp 12/02/24 coenzyme Q10 200 mg capsule (Co Q-10) 200 mg PO QDAY 12/02/24 epoetin beta, methoxy peg subcut PRN low blood counts 12/02/24 sevelamer carbonate 800 mg tablet 800 mg PO TIDCM 12/27/24 ascorbic acid (vitamin C) 500 mg tablet 500 mg PO BID #60 tabs 12/29/24 ferrous sulfate 325 mg (65 mg iron) tablet 325 mg PO QODAY #30 tabs 12/29/24 losartan 25 mg tablet 25 mg PO QHS #0 tabs 12/29/24 losartan 25 mg tablet 25 mg PO SuMoWeFr@1000 #0 tabs 12/29/24 pantoprazole 40 mg tablet,delayed release (Protonix) 40 mg PO BID #60 tabs 12/29/24 Physical Exam Narrative Seen and examined Patient denies abdominal pain. His main complaint is fatigue. EGD findings discussed with the patient. Hemoglobin 8 point 3 in the morning. IV iron ordered. Denies any cardiac complaint chest pain or shortness of breath including dizziness or lightheadedness. Admitted with melena Physical exam General: Alert, Oriented x3, Cooperative HEENT: Atraumatic, PERRLA, EOMI, Normocephalic Oral: No Gingival or Mucosal Lesions/ Ulcerations Neck: Supple, No JVD, Negative Carotid Bruits Chest wall/Lungs: Air entry diminished in bilateral lung bases. No crepitation/rhonchi Cardiovascular: Regular rate, Regular Rhythm, Normal S1, Normal S2, soft systolic murmur. TAVR Abdomen: Bowel Sounds Present, Soft, Non Tender, Non-Distended : No significant urine output. On dialysis. No renal angle tenderness. No suprapubic tenderness. Extremities: Chronic bilateral lower extremity lymphedema, Capillary Refill Less than 3 Seconds Skin: No rashes, No breakdown Musculoskeletal: No Tenderness to Palpation of Joints or Extremities Neurological: Cranial nerves II-XII grossly intact, DTR 2+/4. No acute focal neurological deficit. Psych/Mental Status: Normal Affect, Appropriate. Weight / BMI Weight Weight: 199 lb 15.348 oz Body Mass Index (BMI) 28.7 ABG / Lab / Microbiology Data 12/29/24 10:13 12/29/24 10:30 Laboratory: Laboratory Results - last 24 hr 12/27/24 16:30: Crossmatch See Detail 12/28/24 14:21: Hgb 8.1 L, Hct 24.9 L 12/29/24 10:13: WBC 8.4, RBC 2.47 L, Hgb 8.3 L, Hct 25.3 L, MCV 102.4 H, MCH 33.6 H, MCHC 32.8, RDW Std Deviation 61.8 H, RDW Coeff of Brynn 16.4 H, Plt Count 187, MPV 10.5, Immature Gran % (Auto) 0.400, Neut % (Auto) 79.8 H, Lymph % (Auto) 8.2 L, [place] % (Auto) 9.7, Eos % (Auto) 1.4, Baso % (Auto) 0.5, Absolute Neuts (auto) 6.7, Absolute Lymphs (auto) 0.69 L, Nucleated RBC % 0 12/29/24 10:30: Sodium 136, Potassium 3.8, Chloride 98, Carbon Dioxide 28.0, Anion Gap 10, BUN 59 H, Creatinine 4.44 H, Estim Creat Clear Calc 17.79, Est GFR (MDRD) Af Amer 17 L, Est GFR (MDRD) Non-Af 14 L, BUN/Creatinine Ratio 13.3, Glucose 107 H, Calcium 9.3 Microbiology: Microbiology 12/27/24 17:09 Stool Stool Occult Blood (LAMONTE) - Final D/C Instructions Discharge Diet: Low fat / Low cholesterol, 8 Cup Fluid Restriction and Renal Diet Weight Bearing Status: Weight bearing as tolerated Call your doctor if you observe: Fever of 101 or Higher, Coldness, Increased Pain, Numbness or Tingling, Change in Color, Inability to urinate, Inability to have a bowel movement, Shortness of breath, Dizziness, Fainting spells, Swelling in the ankles, Chest pain, Prolonged hiccupping, Increased palpitations (irregular heartbeat) and Calf discomfort DC O2, CPAP, BIPAP Needs Home O2 Discharge instructions: No When: IN 2 WEEKS Meaningful Use Info Meaningful Use Meaningful Use Diagnoses (Choose all that apply): None applicable Ischemic Stroke Statin Dosing Therapy Reference: STATIN DOSE THERAPY REFERENCE: * Patients > 75 years receive moderate or high dose statin therapy. * Patients 75 years or YOUNGER should receive HIGH intensity statin dose unless contraindicated. You will be required to document reason for non-treatment if statin daily dose does not meet guidelines. HIGH DOSE STATIN THERAPY DAILY Atorvastatin > than or = to 40 mg Rosuvastatin > than or = to 20 mg Amlodipine + Atorvastatin > than or = to 2.5/40 mg Ezetimibe + Simvastatin 10/80 mg Simvastatin 80mg Discharge Plan Admission Admit Date/Time: 12/27/24 19:38 Primary Reason for Your Visit: Upper GI bleed Attending Provider: Kian Calvert Primary Care Provider: Bekah Washington Consulting Providers: Hanh Russo; Yara Delacruz Discharge Orders/Prescriptions Prescriptions: New losartan 25 mg Tablet 25 mg PO QHS Qty: 0 0RF losartan 25 mg Tablet 25 mg PO SuMoWeFr@1000 Qty: 0 0RF pantoprazole [Protonix] 40 mg tablet,delayed release (DR/EC) 40 mg PO BID Qty: 60 1RF ferrous sulfate 325 mg (65 mg iron) tablet 325 mg PO QODAY Qty: 30 2RF ascorbic acid (vitamin C) 500 mg tablet 500 mg PO BID Qty: 60 2RF Continued carvedilol 12.5 mg tablet 12.5 mg PO BID Rx Instructions: Does not take on Tuesdays, , and Saturdays due to dialysis coenzyme Q10 [Co Q-10] 200 mg capsule 200 mg PO QDAY epoetin beta, methoxy peg [Mircera] subcut PRN (Reason: low blood counts) Rx Instructions: administered by dialysis infusion acetaminophen 500 mg tablet 1,000 mg PO BID Nephro-Christiano 0.8 mg tablet 1 tab PO DAILY cyanocobalamin (vitamin B-12) [Vitamin B-12] 1,000 mcg tablet 1,000 mcg PO DAILY sevelamer carbonate 800 mg tablet 800 mg PO TIDCM Discontinued losartan 25 mg tablet 25 mg PO BID Rx Instructions: only takes evening dose on thursday, , and thursday Referrals / Follow Up: Hanh Russo MD [Med Staff - Consulting] - Within 1 Month (For ESRD hemodialysis and anemia of chronic disease/CKD) Bekah Washington MD [Primary Care Provider] - 01/25/25 8:30 am Cade Ross DO [Med Staff - Active Staff] - Within 1 Week Disposition Disposition (needs filled in before D/C Order can be placed): Home, Self Care Charges/Coding Visit Charges Inpatient E&M: 74810 Disch Hosp >30min
--- NOTE | 2024-12-29 11:51 | CASEMGMT ---
REBECCA REDMOND NOTE: Per Dr Calvert, pt to discharge home today if Hgb around 8. RN CM to room. Pt resting in bed, receiving HD. Pt denies having any discharge needs/concerns. His will take him home @ discharge & she would like to be present when discharge instructions are reviewed. Mian FERNANDEZ, aware. Pt is aware dc order/instructions are not in yet, will be printed off when ready, and Mian FERNANDEZ aware to review w/pt and both. Pt also aware will need IV iron infusion prior to discharge. Pt requesting instructions on how to use IS and flutter device. Mian FERNANDEZ, aware. Gordon LUCERON REBECCA CM
--- NOTE | 2024-12-29 11:56 | CASEMGMT ---
Addendum entered by Jacob Jimenez 12/29/24 11:58: Call placed to [facility]. No answer. VM left to notify them pt is discharging home today, OP HD to resume @ [facility] on Sat. Original Note: REBECCA REDMOND NOTE: Per Dr Calvert, pt to discharge home today if Hgb around 8. RN CM to room. Pt resting in bed, receiving HD. Pt denies having any discharge needs/concerns. His will take him home @ discharge & she would like to be present when discharge instructions are reviewed. Mian FERNANDEZ aware. Pt aware will need IV iron infusion after HD completed, prior to discharge. Pt requesting instructions on how to use IS and flutter device. Mian FERNANDEZ aware. Gordon JEROME RN CM
[2024-12-29] MEDS: Pantoprazole Sodium 40 MG in 0.9% Normal Saline (100mL MB+) 100 ML 330 MG IV (12:33)
--- NOTE | 2024-12-29 12:37 | PHA.DC_ITS ---
Pharmacy [facility] has performed discharge medication reconciliation and counseling for this patient. The patient's discharge medication list was reviewed for discrepancies and discrepancies were resolved. The patient was counseled on the following discharge medications and changes in medications for homegoing were reviewed. 1. PROTONIX 2. FERREX 3. VITAMIN C The Reason for Use, instructions for use, and potential side effects were reviewed for all new medications. The patient's questions regarding all of their medications were answered. The patient was able to verbally demonstrate an understanding of their discharge medications. Medications at Discharge Home Medications vitamin B complex-vitamin C-folic acid 0.8 mg tablet (Nephro-Christiano) 1 tab PO DAILY RENAL HEALTH 12/12/23 cyanocobalamin (vitamin B-12) 1,000 mcg tablet (Vitamin B-12) 1,000 mcg PO DAILY supplement 01/12/24 acetaminophen 500 mg tablet 1,000 mg PO BID PAIN 12/02/24 carvedilol 12.5 mg tablet 12.5 mg PO BID High bp 12/02/24 coenzyme Q10 200 mg capsule (Co Q-10) 200 mg PO QDAY 12/02/24 epoetin beta, methoxy peg subcut PRN low blood counts 12/02/24 sevelamer carbonate 800 mg tablet 800 mg PO TIDCM 12/27/24 ascorbic acid (vitamin C) 500 mg tablet 500 mg PO BID #60 tabs 12/29/24 ferrous sulfate 325 mg (65 mg iron) tablet 325 mg PO QODAY #30 tabs 12/29/24 losartan 25 mg tablet 25 mg PO QHS #0 tabs 12/29/24 losartan 25 mg tablet 25 mg PO SuMoWeFr@1000 #0 tabs 12/29/24 pantoprazole 40 mg tablet,delayed release (Protonix) 40 mg PO BID #60 tabs 12/29/24
--- NOTE | 2024-12-29 12:39 | PCM.PN.REN ---
Subjective Subjective Patient finishing dialysis. No complaints. No overnight events. Objective Data Objective Data Vital Signs: Vital Signs Temp Pulse Resp BP Pulse Ox O2 Del Method 98.1 F 77 12 134/74 H 100 Room Air 12/29/24 12:28 12/29/24 12:28 12/29/24 12:28 12/29/24 12:28 12/29/24 12:28 12/29/24 12:28 Oxygen Delivery Method Room Air Weight: 87.9 kg Body Mass Index (BMI) 27.8 Intake & Output: Intake and Output for Last 24 Hours 12/27/24 12/28/24 12/29/24 23:59 23:59 23:59 Intake Total 145 / 245 1220 / 1720 875 / 875 Output Total 700 / 700 2880 / 2880 Balance 145 / 245 520 / 1020 -2004 / Lab / Micro Data 12/29/24 10:13 12/29/24 10:30 Labs: Laboratory Results - last 24 hr 12/27/24 16:30: Crossmatch See Detail 12/28/24 14:21: Hgb 8.1 L, Hct 24.9 L 12/29/24 10:13: WBC 8.4, RBC 2.47 L, Hgb 8.3 L, Hct 25.3 L, MCV 102.4 H, MCH 33.6 H, MCHC 32.8, RDW Std Deviation 61.8 H, RDW Coeff of Brynn 16.4 H, Plt Count 187, MPV 10.5, Immature Gran % (Auto) 0.400, Neut % (Auto) 79.8 H, Lymph % (Auto) 8.2 L, [place] % (Auto) 9.7, Eos % (Auto) 1.4, Baso % (Auto) 0.5, Absolute Neuts (auto) 6.7, Absolute Lymphs (auto) 0.69 L, Nucleated RBC % 0 12/29/24 10:30: Sodium 136, Potassium 3.8, Chloride 98, Carbon Dioxide 28.0, Anion Gap 10, BUN 59 H, Creatinine 4.44 H, Estim Creat Clear Calc 17.79, Est GFR (MDRD) Af Amer 17 L, Est GFR (MDRD) Non-Af 14 L, BUN/Creatinine Ratio 13.3, Glucose 107 H, Calcium 9.3 Micro: Microbiology 12/27/24 17:09 Stool Stool Occult Blood (LAMONTE) - Final Physical Exam Narrative Alert and oriented x 3, no apparent distress S1, S2, RRR Lung sounds clear Abdomen soft, nontender No significant pitting edema bilateral lower legs AV fistula left arm Assessment & Plan Assessment/Plan (1) ESRD (end stage renal disease) on dialysis: (2) Black stool: (3) Acute anemia: PLAN: Plan -ESRD: dialyzes Thursday at [facility] (EDW 86kg), underwent HD today with ~2.8L fluid removed. - acute anemia of chronic disease; had EGD showed bleeding lesion in stomach. Will continue to hold heparin at HD center. Patient's hemoglobin trends at [facility] have been above 11 over the past month, last hgb 11.4 on 12/20/2024 and 11.3 on 12/13/2024. Patient received 1 unit PRBC. Hgb improved. Possible discharge to home today, next HD Thursday at [facility].
[2024-12-29] MEDS: Acetaminophen 500 MG Tablet 1000 MG PO (12:41)
[2024-12-29] MEDS: Sodium Ferric Gluconat/Sucrose 250 MG in 0.9% Normal Saline (250mL Bag) 250 ML 135 MG IV (13:36)
== END 2024-12-29 16:10 | disposition home or self-care (01) | DRG 377 ==
LOC: ED 18:36 → PCU 23:16
PROVIDERS: Internal Medicine Gastroenterology; Admitting Provider Internal Medicine; Emergency Provider Emergency Medicine; PCP Internal Medicine; Visit Provider Internal Medicine
PROC: 0DJ08ZZ Inspection of Upper Intestinal Tract, Via Natural or Artificial Opening Endoscopic (ICD-10-PCS; CPT 43235; principal; 2024-12-28 14:35)
DX: K31.811 Angiodysplasia of stomach and duodenum with bleeding (principal); N18.6 End stage renal disease; I13.2 Hypertensive heart and chronic kidney disease with heart failure and with stage 5 chronic kidney disease, or end stage renal disease; I24.89 Other forms of acute ischemic heart disease; D62 Acute posthemorrhagic anemia; I50.22 Chronic systolic (congestive) heart failure; D63.1 Anemia in chronic kidney disease; M06.9 Rheumatoid arthritis, unspecified; Z95.2 Presence of prosthetic heart valve; Z99.2 Dependence on renal dialysis; F17.200 Nicotine dependence, unspecified, uncomplicated; I44.7 Left bundle-branch block, unspecified; I25.10 Atherosclerotic heart disease of native coronary artery without angina pectoris; I49.1 Atrial premature depolarization; Z87.11 Personal history of peptic ulcer disease; Z87.19 Personal history of other diseases of the digestive system; Z86.718 Personal history of other venous thrombosis and embolism; Z79.899 Other long term (current) drug therapy; Z98.890 Other specified postprocedural states; Z79.82 Long term (current) use of aspirin
CPT/HCPCS: 36415; 80048; 80053; 82274; 84484; 85014; 85018; 85025; 85610; 85730; 86850; 86900; 86901; 90937; 93005; 99284; 99406; P9016; A4216; G0257; J2405; J2916; Q5106

== ENCOUNTER 2025-01-08 03:39 | Inpatient (IN) | payer MEDICARE, BC, SELFPAY ==
[2024-12-30 10:19] VITALS: BMI 29.4
[2025-01-08] VITALS (18 sets, daily range): BP systolic 132–179; BP diastolic 73–112; PULSE 84–104; RESP 14–20; TEMP 36.3–37.1; O2SAT 95–100; BMI 27.3; BMI 28.4
--- NOTE | 2025-01-08 03:40 | EKG12_ITS ---
Test Reason : STROKE Blood Pressure : */* mmHG Vent. Rate : 103 BPM Atrial Rate : * BPM P-R Int : * ms QRS Dur : 152 ms QT Int : 360 ms P-R-T Axes : * -45 101 degrees QTcB Int : 471 ms Sinus tachycardia with PVC's Left axis deviation Left bundle branch block Abnormal ECG Confirmed by Aric Palomo ([id number]), commercial production editor DARRIUS ALONSO ([id number]) on 01/09/2025 6:52:48 AM Referred By: Confirmed By: Aric Palomo
--- NOTE | 2025-01-08 03:40 | CT_ITS ---
PROCEDURE: STROKE BRAIN/HEAD WITHOUT CONT REASON FOR EXAM: Acute neurological deficit. TECHNIQUE: Noncontrast CT of the head was obtained. Multiplanar reformats were generated. Dose reduction techniques include automated exposure control and/or adjustment of mA and/or kv according to patient size and or use of iterative reconstructive technique COMPARISON: 12/12/2023 FINDINGS: No acute intracranial hemorrhage or extra-axial collection. The marx-white matter differentiation is normal, and there are no CT findings for acute territorial infarct. Ventricles are normal in size and configuration, without midline shift or mass effect. Imaged globes and orbits are normal post lens removal. There is an air-fluid level in the left maxillary sinus and complete opacification of the right maxillary sinus. Cerumen is noted in the right external auditory canal. Discussed with Dr. Hernandez at 4 a.m. EST on 01/08/2025. CT/STROKE Brain/Head without Cont IMPRESSION: NO ACUTE INTRACRANIAL ABNORMALITY. Reading Location: [id number]
--- NOTE | 2025-01-08 03:41 | CT_ITS ---
PROCEDURE: STROKE CTA HEAD AND NECK W/CON REASON FOR EXAM: Neuro deficit, acute, stroke suspected TECHNIQUE: CTA imaging of the head and neck from the aortic arch to the skull vertex with intravenous contrast. 3D reconstructions. CONTRAST: 99 cc Isovue 370 COMPARISON: Preceding noncontrast head CT FINDINGS: Motion at the visualized aortic. Origin of 3 great vessels appears within limits. Note is made of a right subclavian graft which contains contrast visualized portion. Calcific plaque formation at the origin and proximal right vertebral artery without flow significant stenosis. Right vertebral artery is dominant. The vertebrals appear patent to the basilar artery. Calcifications of the intracranial portion of the right vertebral artery. Left common carotid, internal carotid and external carotid arteries appear within limits without flow significant stenosis, dissection or vessel cut off. Mild plaque formation left carotid bulb and internal carotid artery. Undulating internal carotid artery. The right common carotid and external carotid arteries appear within limits. Soft and calcific plaque formation at the carotid bifurcation and right carotid bulb and internal carotid artery with associated luminal narrowing. There is focal narrowing of the proximal right internal carotid artery with greater than 70% stenosis for example axial 259 and sagittal 98. Contrast is seen beyond. The anterior and posterior circulation appears intact without flow significant stenosis, vessel cut off or aneurysm identified. No intracranial aneurysms or large vascular malformations are identified. Anterior cerebral arteries: Unremarkable. Middle cerebral arteries: Unremarkable. Basilar artery: Unremarkable. Posterior cerebral arteries: Unremarkable. Other major branches of the posterior circulation: Unremarkable. Major venous structures: Unremarkable. Other findings: No lymphadenopathy. Lung apices are clear. Multilevel cervical spondylosis/discogenic change. Poor dentition Left maxillary sinus air-fluid level may represent sinusitis. Opacification right maxillary sinus. Opacification left mastoid tip. CT/STROKE CTA Head AND Neck W/Con IMPRESSION: Soft and calcific plaque formation of the right carotid bulb and internal carot id artery with an associated greater than 70% luminal stenosis. Contrast is seen beyond throughout the remainder of the righ t internal carotid artery. Recommend follow-up vascular consult. [id number] appears intact without flow significant stenosis, vessel cut o ff or aneurysm. Paranasal sinus disease as above. Results were reported verbally by myself to Dr. Hernandez at 4:28 a.m. 01/08/2025 One or more dose reduction techniques were used (e.g., Automated exposure contr ol, adjustment of the mA and/or kV according to patient size, use of iterative reconstruction technique). Reading Location: [id number]
--- NOTE | 2025-01-08 03:43 | EDS_ITS ---
HPI History of Present Illness Chief Complaint: Stroke Alert Informant: patient and EMS Narrative Narrative: Patient arrives at about 3:40 AM, he woke up 25 minutes ago difficulty talking, some weakness in the right arm according to EMS, last known well at midnight when he went to bed without the symptoms. Prehospital stroke alert was called. This patient was discharged from the hospital 10 days ago after being admitted for 2 or 3 days for an upper GI bleed. He is a dialysis patient he gets heparin during dialysis, but is on no other anticoagulants. [facility] Medical History Acute anemia Black stool History of transcatheter aortic valve replacement (TAVR) Wears glasses History of steroid therapy History of renal disease Low iron Rheumatoid arthritis Back pain Migraine headache Dietary restriction History of diverticulitis History of ulceration Shortness of breath on exertion Lymphedema History of echocardiogram Cardiology follow-up encounter Hypertension Chronic renal failure Anemia DVT (deep venous thrombosis) End stage renal disease on dialysis Secondary hyperparathyroidism Generalized weakness Acute on chronic anemia Chronic anemia Acute upper GI bleed History of end stage renal disease History of renal dialysis Dialysis patient Hepatitis Smoker Bursitis Problem with dialysis access Rectal bleeding Subclavian aneurysm Kidney failure due to vascular disorder Cardiac disease Rheumatoid vasculitis Rheumatoid aortitis Home Medications ?Medication ?Instructions ?Recorded ?Last Taken ?Type vitamin B complex-vitamin C-folic 1 tab PO DAILY RENAL HEALTH 12/12/23 12/27/24 History acid 0.8 mg tablet (Nephro-Christiano) cyanocobalamin (vitamin B-12) 1,000 mcg PO DAILY suppl ement 01/12/24 12/27/24 History 1,000 mcg tablet (Vitamin B-12) acetaminophen 500 mg tablet 1,000 mg PO BID PAIN 12/0212/28/24 History carvedilol 12.5 mg tablet 12.5 mg PO BID High bp 12/0212/28/24 History coenzyme Q10 200 mg capsule (Co 200 mg PO QDAY 5 12/27/24 History Q-10) epoetin beta, methoxy peg subcut PRN low blood counts 12/02/24 Unknown History sevelamer carbonate 800 mg tablet 800 mg PO TIDCM 12/1012/27/24 History ascorbic acid (vitamin C) 500 mg 500 mg PO BID #60 tab s 12/29/24 Unknown Rx tablet ferrous sulfate 325 mg (65 mg 325 mg PO QODAY #30 tabs 12/29/24 Unknown Rx iron) tablet losartan 25 mg tablet 25 mg PO QHS #0 tabs 5 Unknown Rx losartan 25 mg tablet 25 mg PO SuMoWeFr@1000 #0 ta bs 12/29/24 Unknown Rx pantoprazole 40 mg tablet,delayed 40 mg PO BID #60 tab s 12/29/24 Unknown Rx release (Protonix) cholecalciferol (vitamin D3) 10 10 mcg PO 3XW 01/06/25 Unknown History mcg (400 unit) capsule sensitar 90 mg PO 3XW 01/06/25 Unknow n History Allergy/AdvReac Type Severity Reaction Status Date / Time No Known Allergies Allergy Verified 01/08/25 03:40 Family History Other Cancer Diabetes Heart disease Surgical History History of cardiac catheterization Hx of colonoscopy with polypectomy History of esophagogastroduodenoscopy (EGD) Hx of arteriovenostomy for renal dialysis (~12/2019) Status post insertion of dialysis catheter (~11/2019) History of umbilical hernia s/p subclavian graft S/P knee surgery History of bicuspid aortic valve Social History household members: spouse housing: house Smoking Status: Heavy Smoker (>10/day) alcohol intake: never substance use type: does not use caffeine: Yes Type: coffee Number of servings: 2 ROS ROS ED Constitutional Constitutional ED: Denies chills or fever(s) Eyes Eyes: Denies change in vision or diplopia ENT ENT ED: Denies rhinorrhea or sore throat Cardiovascular Cardiovascular: Denies chest pain or palpitations Respiratory/Chest Respiratory/Chest: Reports cough and dyspnea; Denies sputum Gastrointestinal Gastrointestinal: Denies abdominal pain, diarrhea, nausea or vomiting Musculoskeletal Musculoskeletal: Denies back pain or neck pain Integumentary Denies abscess or rash Neurologic Neurologic: Reports as per HPI and abnormal speech; Denies abnormal gait, convulsions, disequilibrium, focal weakness, headache(s), paresthesias or weakness EXAM Physical Exam Const Vital Signs: 01/08/25 03:39 01/08/25 03:39 01/08/25 03:40 Temperature 98.1 F Temperature Source Oral Pulse Rate 104 H 100 99 Respiratory Rate 18 19 H 20 H Blood Pressure 163/107 H 163/107 H Blood Pressure Mean 125 125 Pulse Ox 96 96 96 Oxygen Delivery Method Room Air Room Air Room Air 01/08/25 03:46 01/08/25 04:10 01/08/25 04:27 Temperature Temperature Source Pulse Rate 104 H 101 H Respiratory Rate 15 17 Blood Pressure 179/112 H Blood Pressure Mean 134 Pulse Ox 96 97 Oxygen Delivery Method Room Air Room Air 01/08/25 04:30 01/08/25 04:36 01/08/25 05:00 Temperature 97.4 F L Temperature Source Pulse Rate 98 102 H 100 Respiratory Rate 17 18 20 H Blood Pressure 179/109 H 169/105 H 155/99 H Blood Pressure Mean 132 126 117 Pulse Ox 100 100 98 Oxygen Delivery Method Room Air Room Air Positive well nourished and well developed General Appearance ED: well developed and NAD HEENT Reports moist mucous membranes normocephalic and atraumatic Eyes PERRL and EOMs intact bilaterally Neck full ROM and supple Resp normal respiratory effort and clear to auscultation bilaterally Cardio regular rate, regular rhythm and no murmurs GI non-tender and non-distended Auscultation: normoactive bowel sounds Palpation: soft Back/Spine no CVA tenderness General Back: other FROM Extremity normal to inspection General Extremety ED: Negative for edema, pulses abnormal or tenderness General Extremity: Negative for edema or pulses abnormal Neuro oriented x3 and no sensory deficits noted Neuro Narrative: See NIHSS attached. Patient dysarthric and has a dense right facial droop, he has symmetric forehead movement. Does not appear to be aphasic but refuses to answer some questions, saying no, I cannot talk right. Sensorium / Orientation: awake and alert Motor Exam: strength 5/5 throughout Skin no rashes or lesions noted and no wounds NIHSS NIHSS Initial: 1a Level of Consciousness: 0 1b LOC Questions (Score 2 if aphasic/stupor): 0 1c LOC Commands (Only score 1st attempt): 0 2 Best Gaze (If aphasic, use reflexive mvmts.): 0 3 Visual: 0 4 Facial Palsy: 2 5 Motor Arm Right (UN = amputation/fusion): 0 5 Motor Arm Left: 0 6 Motor Leg Right: 0 6 Motor Leg Left: 0 7 Limb ataxia (Only + if out of proportion): 0 8 Sensory (Aphasia/stupor=0 or 1, coma=2): 0 9 Best Language: 0 10 Dysarthria (mute, coma=2, intubated=UN): 1 11 Extinction and Inattention (only scored if +): 0 Total Score: 3 MDM MDM MDM Narrative Medical decision making narrative: Patient seen in the ambulance bay and sent emergently to CT, I reviewed the images and discussed with the radiologist, there is no hemorrhage on the plain CT. Exam the patient fully in the room. Reviewed some old records, he was just discharged from the hospital 10 days ago with upper GI bleeding. His NIHSS is 3, and given the fact that this is relatively low and he just had a GI bleed, I do not think the benefits of thrombolytics outweigh the risks here. [facility] stroke neurology in agreement. Discussed with radiology concerning CT angiography of the head and neck, no LVO but he does have plaque in the right ICA greater than 70%. He seems to be wheezing clinically but no respiratory distress. The patient agrees this is new since he woke up. Given albuterol treatment, and obtained a chest x-ray for that reason. 1 view on my interpretation shows what appears to be some cardiomegaly, but no acute pneumonia or pneumothorax or pulmonary edema. The patient is a dialysis patient, but he just had his last dialysis yesterday, and has not scheduled again until Thursday, even though we do not have dialysis available this weekend, the patient therefore can still stay at this hospital. Radiology confirms this chest x-ray is unremarkable. While waiting for admission patient said that he was having some heartburn. His initial troponin was nonspecifically elevated likely due to his renal failure, repeated his EKG but by the time we did it, he said he did not have any discomfort anymore. His EKG still shows a left bundle branch block and a PVC but nothing else acute, no changes compared with his prior Lab Data Attestation: I reviewed the patient's lab results. Labs: Laboratory Results - last 24 hr 01/08/25 03:42 WBC 7.5 RBC 3.21 L Hgb 10.7 L Hct 33.7 L MCV 105.0 H MCH 33.3 H MCHC 31.8 L RDW Std Deviation 65.7 H RDW Coeff of Brynn 17.0 H Plt Count 258 MPV 9.6 Immature Gran % (Auto) 0.500 Neut % (Auto) 62.3 Lymph % (Auto) 17.8 L Guadalupe % (Auto) 15.9 H Eos % (Auto) 2.7 Baso % (Auto) 0.8 Absolute Neuts (auto) 4.7 Absolute Lymphs (auto) 1.33 Nucleated RBC % 0.3 Anisocytosis 1+ PT 13.6 INR 1.0 APTT 30.4 Sodium 139 Potassium 4.2 Chloride Direct 93 L Carbon Dioxide 29.6 H Anion Gap 16 H BUN 27 H Creatinine 4.51 H Estim Creat Clear Calc 15.96 L Est GFR (MDRD) Non-Af 13 L BUN/Creatinine Ratio 6.0 L Glucose 88 Calcium 9.2 Troponin T High Sens 263 H* Radiography Diagnostic Testing: Clinical Impression(s) from Imaging Studies Brain CT 01/08/25 03:40 IMPRESSION: NO ACUTE INTRACRANIAL ABNORMALITY. Reading Location: [facility] Head/Neck CTA 01/08/25 03:41 IMPRESSION: Soft and calcific plaque formation of the right carotid bulb and internal carotid artery with an associated greater than 70% luminal stenosis. Contrast is seen beyond throughout the remainder of the right internal carotid artery. Recommend follow-up vascular consult. [id number] appears intact without flow significant stenosis, vessel cut off or aneurysm. Paranasal sinus disease as above. Results were reported verbally by myself to Dr. Hernandez at 4:28 a.m. 01/08/2025 One or more dose reduction techniques were used (e.g., Automated exposure control, adjustment of the mA and/or kV according to patient size, use of iterative reconstruction technique). Reading Location: [facility] Chest X-Ray 01/08/25 04:17 IMPRESSION: No evidence of acute disease. Reading Location: [facility] Rhythm Strip Rhythm Strip: Sinus Rhythm Rate: 100 Ectopy: None EKG Initial EKG: Attestation: I personally reviewed and interpreted this EKG as follows: Interpretation: Sinus Rhythm, No Acute Injury Pattern and LBBB Prior EKG tracings: available for review Prior: Unchanged Follow-up EKG: Attestation: I personally reviewed and interpreted this EKG as follows: Interpretation: Sinus Rhythm, No Acute Injury Pattern and LBBB Comments: pvc Management Discussion w/another healthcare provider: Hospitalist, [employer]ate Roofer Helper and Radiologist Stroke Documentation Questions Stroke Team Activated: Yes Reviewed Inclusion/Exclusion criteria: Yes Was Patient considered for Endovascular Intervention?: No-CTA negative, determined not to be an endovascular candidate IV Thrombolytic Administered: No (Due to recent heparin and recent GI hemorrhage 10 days ago) Critical Care Time Critical Care Time: Yes Critical care time (excluding procedures): 30-74 minutes (35 min), Including time spent:, Discussing w/Patient &/or Family/Customs Opener Verifier Packer, Discussing w/Consultants, Arranging Admission or Transfer and Performing Direct Patient Care at Bedside Discharge Plan Dx/Rx/DC Orders Clinical Impression: Acute ischemic stroke, Chronic renal insufficiency, stage V, More 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
[2025-01-08 03:53] LABS: Absolute Lymphocyte Count 1.33 X10^3/uL (0.83-4.51); Absolute Neutrophil Count 4.7 X10^3/uL (2.0-7.7); Basophil# 0.06 X10^3/uL; Basophil% 0.8 % (0-1); Eosinophils% 2.7 % (0-5); Hematocrit 33.7 % (40-54); Hemoglobin 10.7 g/dL (13.0-16.5); Lymphocyte # 1.33 X10^3/ul (0.83-4.51); Lymphocyte % 17.8 % (19-41); Mean Corp Hgb Conc 31.8 g/dL (32-36); Mean Corpuscular Hgb 33.3 pg (27.0-32.0); Mean Platelet Vol. 9.6 fl (6.2-12.0); Monocyte# 1.19 X10^3/uL; Monocyte% 15.9 % (0-10); NRBC Flagged by Analyzer 0.3 % (0-5); Neutrophil # 4.66 X10^3/uL (2.7-7.7); Neutrophil % 62.3 % (47-70); POSITIVE MORPHOLOGY YES; Platelet Count 258 K/mm3 (150-450); RBC Distribution Width SD 65.7 fl (35.1-43.9); Red Blood Count 3.21 M/mm3 (4.6-6.2); White Blood Count 7.5 K/mm3 (4.4-11.0)
[2025-01-08 04:05] LABS: Prothrombin Time (Protime)PT. 13.6 SECONDS (11.7-14.9)
[2025-01-08 04:06] LABS: Partial Thromboplast Time 30.4 Seconds (24.1-36.2)
--- NOTE | 2025-01-08 04:17 | RAD_ITS ---
PROCEDURE: CHEST 1 VIEW (PORTABLE) REASON FOR EXAM: Shortness of breath TECHNIQUE: Frontal view of the chest. 2 frontal views to include the entire chest. COMPARISON: 04/13/2024 FINDINGS: The lungs appear clear. Pulmonary vascularity appears within limits. Ectatic appearing thoracic aorta. Interval valve replacement now seen. Bilateral shoulder degenerative changes. Surgical clips right lower neck and axilla. RAD/Chest 1 View (Portable) IMPRESSION: No evidence of acute disease. Reading Location: [id number]
[2025-01-08] MEDS: Albuterol 2.5 MG/3 ML VIAL.NEB. INHALATION (04:25)
[2025-01-08 04:27] LABS: Anisocytosis 1+; Differential Indicated SCAN CRITERIA MET
--- NOTE | 2025-01-08 04:51 | PCM.HP.STD ---
[facility] - General General Date of Admission: 01/08/25 Date of Service: 01/08/25 Chief Complaint: Slurred Speech and Right Facial Droop. HPI Narrative BINDU JOE, is a 69 M with a past medical history of essential hypertension; on losartan and carvedilol, overweight with BMI of 27.4 this admission, ESRD; on HD () with last dialysis yesterday, chronic anemia; primarily due to renal disease with superimposed BERTRAND on oral ferrous sulfate and epoetin beta, history of bicuspid aortic valve with insufficiency; s/p TAVR (04/2024), history of CAD; with patient in need of stent when he can tolerate aspirin, chronic systolic CHF; LVEF ~25% (09/2024), RA; with associated rheumatoid vasculitis and aortitis, history of subclavian aneurysm (~2014); s/p subclavian graft, history of RUE DVT due to aneurysm (~2014), hepatitis C positive; with genotype 1b without cirrhosis PCR RNA quant was 1 million with patient having completed Epclusa therapy x 12 weeks with subsequent PCR RNA quant continuing to be normal, history of diverticulitis, history of colonoscopy with polypectomy (2023), history of umbilical hernia, history of lower extremity lymphedema, chronic tobacco abuse, history of migraine headache, GERD with history of PUD causing for peptic ulcers cauterized in the past; on pantoprazole, OA; with history of knee surgery and chronic back pain and recent admission here from December 27, 2024 to December 29, 2024 for treatment of Melanotic Stools with increased weakness and fatigue for ~4-5 days secondary to UGIB with 1 unit of PRBCs ordered and patient found to have a single bleeding angiodysplastic lesion in the stomach treated with a heater probe by Dr. Ross of gastroenterology in addition to elevated troponin suspected to be due to demand ischemia this who re-presents to [facility] complaining of slurred speech and Right facial droop. Mr. Joe reports he woke up approximately 25 minutes prior to admission at ~3:40 AM with difficulty talking and weakness in his Right arm so he immediately activated EMS. He denies abnormal gait, seizure activity, disequilibrium, headache, paresthesias or other focal neurologic deficits. There was no report of fever, chills, nausea, vomiting, constipation, diarrhea, abdominal pain, chest pain, shortness of breath, rash or currently being on antiplatelet/anticoagulation therapy. In the ER he was noted to have a CTA of the head and neck with IV contrast that revealed soft and calcific plaque formation of the Right carotid bulb and internal carotid artery with an associated ~70% luminal stenosis with contrast seen beyond throughout the remainder of the Right internal coronary artery with recommended follow-up with vascular surgery with additional mention of [id number] appearing intact without flow significant stenosis, vessel cutoff or aneurysm and paranasal sinus disease with a CXR that was also negative for acute pathologic findings. He was noted to have a hemoglobin of 10.7 g/dL present on admission (up from his last check on December 29, 2024 and 8.3 g/dL) with otherwise unremarkable laboratory studies. He was then diagnosed with Acute Ischemic CVA; likely due to significant Right Carotid Artery Stenosis in the setting of recent UGIB with melanotic stool requiring transfusion of 1 unit PRBCs with subsequent EGD finding Angiodysplastic Lesion in the stomach treated with electrocautery and he was then admitted to the PCU for ongoing care for status expected to extend beyond 2 midnights. [facility] Medical History Acute anemia Black stool History of transcatheter aortic valve replacement (TAVR) Wears glasses History of steroid therapy History of renal disease Low iron Rheumatoid arthritis Back pain Migraine headache Dietary restriction History of diverticulitis History of ulceration Shortness of breath on exertion Lymphedema History of echocardiogram Cardiology follow-up encounter Hypertension Chronic renal failure Anemia DVT (deep venous thrombosis) End stage renal disease on dialysis Secondary hyperparathyroidism Generalized weakness Acute on chronic anemia Chronic anemia Acute upper GI bleed History of end stage renal disease History of renal dialysis Dialysis patient Hepatitis Smoker Bursitis Problem with dialysis access Rectal bleeding Subclavian aneurysm Kidney failure due to vascular disorder Cardiac disease Rheumatoid vasculitis Rheumatoid aortitis Home Medications ?Medication ?Instructions ?Recorded ?Last Taken ?Type vitamin B complex-vitamin C-folic 1 tab PO DAILY RENAL HEALTH 12/12/23 12/27/24 History acid 0.8 mg tablet (Nephro-Christiano) cyanocobalamin (vitamin B-12) 1,000 mcg PO DAILY supplement 01/12/24 12/27/24 History 1,000 mcg tablet (Vitamin B-12) acetaminophen 500 mg tablet 1,000 mg PO BID PAIN 12/02/24 12/28/24 History carvedilol 12.5 mg tablet 12.5 mg PO BID High bp 12/02/24 12/28/24 History coenzyme Q10 200 mg capsule (Co 200 mg PO QDAY 12/02/24 12/27/24 History Q-10) epoetin beta, methoxy peg subcut PRN low blood counts 12/02/24 Unknown History sevelamer carbonate 800 mg tablet 800 mg PO TIDCM 12/27/24 12/27/24 History ascorbic acid (vitamin C) 500 mg 500 mg PO BID #60 tabs 12/29/24 Unknown Rx tablet ferrous sulfate 325 mg (65 mg 325 mg PO QODAY #30 tabs 12/29/24 Unknown Rx iron) tablet losartan 25 mg tablet 25 mg PO QHS #0 tabs 12/29/24 Unknown Rx losartan 25 mg tablet 25 mg PO SuMoWeFr@1000 #0 tabs 12/29/24 Unknown Rx pantoprazole 40 mg tablet,delayed 40 mg PO BID #60 tabs 12/29/24 Unknown Rx release (Protonix) cholecalciferol (vitamin D3) 10 10 mcg PO 3XW 01/06/25 Unknown History mcg (400 unit) capsule sensitar 90 mg PO 3XW 01/06/25 Unknown History Allergy/AdvReac Type Severity Reaction Status Date / Time No Known Allergies Allergy Verified 01/08/25 03:40 Family History Other Cancer Diabetes Heart disease Surgical History History of cardiac catheterization Hx of colonoscopy with polypectomy History of esophagogastroduodenoscopy (EGD) Hx of arteriovenostomy for renal dialysis (~12/2019) Status post insertion of dialysis catheter (~11/2019) History of umbilical hernia s/p subclavian graft S/P knee surgery History of bicuspid aortic valve Social History household members: spouse housing: house Smoking Status: Heavy Smoker (>10/day) alcohol intake: never substance use type: does not use caffeine: Yes Type: coffee Number of servings: 2 ROS ROS Narrative Review of Systems: Constitutional: Patient denies fever or chills. Eyes: Patient denies changes vision or discharge from eyes. ENT: Patient denies runny nose, sore throat or ear pain. Resp: Patient admits to nonproductive cough but he denies shortness of breath. CV: Patient denies chest pain, palpitations or heart racing. GI: Patient denies abdominal pain, nausea, vomiting, diarrhea, constipation or recent recurrent bleeding. : Patient denies dysuria or hematuria. MSK: Patient admits to Right upper extremity weakness as per HPI. Skin: Patient denies rash, abscess, wounds or jaundice. Psych: Patient denies symptoms of uncontrolled depression or anxiety. Neuro: Patient admits to slurred speech and weakness in the Right upper extremity but he denies headache or paresthesias as per HPI. Allergy: Patient denies lip swelling, tongue swelling or urticaria. Hematology: Patient denies easy bleeding or easy bruisability. Endocrinology: Patient denies polyuria, polydipsia or polyphagia. 14 point ROS otherwise negative except for positives noted above in HPI. Vital Signs Vital Signs Vital Signs: 01/08/25 03:39 01/08/25 03:39 01/08/25 03:40 Temperature 98.1 F Temperature Source Oral Pulse Rate 104 H 100 99 Respiratory Rate 18 19 H 20 H Blood Pressure 163/107 H 163/107 H Blood Pressure Mean 125 125 Pulse Ox 96 96 96 Oxygen Delivery Method Room Air Room Air Room Air 01/08/25 03:46 01/08/25 04:10 01/08/25 04:27 Temperature Temperature Source Pulse Rate 104 H 101 H Respiratory Rate 15 17 Blood Pressure 179/112 H Blood Pressure Mean 134 Pulse Ox 96 97 Oxygen Delivery Method Room Air Room Air 01/08/25 04:30 01/08/25 04:36 Temperature 97.4 F L Temperature Source Pulse Rate 98 102 H Respiratory Rate 17 18 Blood Pressure 179/109 H 169/105 H Blood Pressure Mean 132 126 Pulse Ox 100 100 Oxygen Delivery Method Room Air Weight Weight: 190 lb 11.198 oz Body Mass Index (BMI) 27.3 Physical Exam Const alert, oriented x3, no apparent distress and average body habitus Constitutional Narrative: Patient appears chronically ill. General Appearance: cooperative HEENT normocephalic, head/scalp atraumatic and hearing grossly normal bilaterally Eyes PERRL, EOMs intact bilaterally and conjunctivae normal Neck no lymphadenopathy and supple Neck Narrative: Right carotid bruit auscultated. Resp normal respiratory effort, no retractions, no use of accessory muscles and clear to auscultation bilaterally Cardio regular rate and regular rhythm GI normal to inspection, nondistended, normoactive bowel sounds, soft to palpation, non-tender and non-distended Skin Skin Narrative: Patient has no evidence of rash, abscess, wounds or jaundice. Neuro oriented x3, CN's II-XII intact bilaterally and moves all extremities Neuro Narrative: Patient is dysarthric and has a dense Right facial droop and is refusing to answer questions because of his compromised ability to communicate, stating I cannot talk right. Sensorium / Orientation: awake, alert, oriented to person, oriented to place and oriented to time Speech: speech normal Psych affect normal Results Medical Records Data Attestation: I reviewed the patient's medical records Lab / Micro Data Attestation: I reviewed the patient's lab results. 01/08/25 03:42 01/08/25 03:42 Labs: Laboratory Results - last 24 hr 01/08/25 03:42: WBC 7.5, RBC 3.21 L, Hgb 10.7 L, Hct 33.7 L, MCV 105.0 H, MCH 33.3 H, MCHC 31.8 L, RDW Std Deviation 65.7 H, RDW Coeff of Brynn 17.0 H, Plt Count 258, MPV 9.6, Immature Gran % (Auto) 0.500, Neut % (Auto) 62.3, Lymph % (Auto) 17.8 L, Bremer % (Auto) 15.9 H, Eos % (Auto) 2.7, Baso % (Auto) 0.8, Absolute Neuts (auto) 4.7, Absolute Lymphs (auto) 1.33, Nucleated RBC % 0.3, Anisocytosis 1+, PT 13.6, INR 1.0, APTT 30.4 Rhythm Strip Rhythm Strip: Sinus Rhythm Rate: 100 Ectopy: None Imaging Radiology Impression Brain CT 01/08/25 03:40 IMPRESSION: NO ACUTE INTRACRANIAL ABNORMALITY. Reading Location: [id number] Head/Neck CTA 01/08/25 03:41 IMPRESSION: Soft and calcific plaque formation of the right carotid bulb and internal carotid artery with an associated greater than 70% luminal stenosis. Contrast is seen beyond throughout the remainder of the right internal carotid artery. Recommend follow-up vascular consult. [id number] appears intact without flow significant stenosis, vessel cut off or aneurysm. Paranasal sinus disease as above. Results were reported verbally by myself to Dr. Hernandez at 4:28 a.m. 01/08/2025 One or more dose reduction techniques were used (e.g., Automated exposure control, adjustment of the mA and/or kV according to patient size, use of iterative reconstruction technique). Reading Location: [facility] Chest X-Ray 01/08/25 04:17 IMPRESSION: No evidence of acute disease. Reading Location: [facility] Assessment & Plan Assessment/Plan (1) Acute ischemic stroke: (2) More than 50 percent stenosis of right internal carotid artery: (3) History of upper gastrointestinal bleeding: (4) CAD (coronary artery disease): QUALIFIERS: Coronary Disease-Associated Artery/Lesion type: [place] artery [place] vs. transplanted heart: [place] heart Associated angina: without angina Qualified Code(s): I25.10 - Atherosclerotic heart disease of [place] coronary artery without angina pectoris (5) ESRD (end stage renal disease) on dialysis: (6) Tobacco abuse: (7) HTN (hypertension): QUALIFIERS: Hypertension type: essential hypertension Qualified Code(s): I10 - Essential (primary) hypertension (8) Overweight (BMI 25.0-29.9): PLAN: Plan 1. Acute Ischemic CVA; likely due to significant Right Carotid Artery Stenosis with CTA of the head and neck with IV contrast that revealed soft and calcific plaque formation of the Right carotid bulb and internal carotid artery with an associated ~70% luminal stenosis with contrast seen beyond throughout the remainder of the Right internal coronary artery with recommended follow-up with vascular surgery - Admit to PCU. Start baby aspirin and statin plus check lipid profile. [facility] teleneurology consult appreciated. Check carotid Doppler to further delineate carotid lesion suspected to be culprit for CVA. Check TSH, B12, hemoglobin A1c, UDS and ISELA. Finally, we will consult vascular surgery to see this patient on rounds in the a.m. for further recommendations with help appreciated in advance. 2. Recent admission here from December 27, 2024 to December 29, 2024 for treatment of Melanotic Stools with increased weakness and fatigue for ~4-5 days secondary to UGIB with 1 unit of PRBCs ordered and patient found to have a single bleeding angiodysplastic lesion in the stomach treated with a heater probe by Dr. Ross of gastroenterology in addition to elevated troponin suspected to be due to demand ischemia complicating #1 - He was noted to have a hemoglobin of 10.7 g/dL present on admission (up from his last check on December 29, 2024 and 8.3 g/dL) with otherwise unremarkable laboratory studies with report of no recent bleeding episodes. 3. History of CAD; with patient in need of stent when he can tolerate aspirin compounding #1 & #2 - Serialize troponin to ensure continued stability. 4. ESRD; on HD since 2019 (--Thu) with most recent dialysis yesterday adding to the medical complexity of #1 - #3 - Patient not due for next dialysis session until Friday, January 10, 2025. Nephrology should be consulted if patient is still in the hospital at that time. 5. Chronic Tobacco Abuse in vasculopathic dialysis patient adding to the already significant burden of disease outlined from #1 - #4 - Tobacco Cessation will be strongly encouraged with no nicotine patch offered in light of #1. 6. Essential Hypertension; on losartan and carvedilol - Hold scheduled antihypertensives to allow for 'permissive hypertension' in light of #1. 7. Overweight with BMI of 27.4 this admission - Weight loss will be recommended. 8. Chronic anemia; primarily due to renal disease with superimposed BERTRAND on oral ferrous sulfate and epoetin beta - Continue current treatment strategy with hemoglobin of 10.7 g/dL present on admission. 9. History of bicuspid aortic valve with insufficiency; s/p TAVR (04/2024) - Noted. 10. Chronic systolic CHF; LVEF ~25% (09/2024) - Stable with no current evidence of volume overload. 11. RA; with associated rheumatoid vasculitis and aortitis - Stable. 12. History of subclavian aneurysm (~2014); s/p subclavian graft - Noted. 13. History of RUE DVT due to aneurysm (~2014) - Noted with no evidence of recurrence at this time. 14. Hepatitis C positive; with genotype 1b without cirrhosis PCR RNA quant was 1 million with patient having completed Epclusa therapy x 12 weeks with subsequent PCR RNA quant continuing to be normal followed by Dr. Ross of gastroenterology - Noted. 15. History of diverticulitis - Noted. 16. History of colonoscopy with polypectomy (2023) - Noted. 16. History of umbilical hernia - Noted. 18. History of lower extremity lymphedema - Resolved. 19. History of migraine headache - Previously resolved. 20. GERD with history of PUD causing for peptic ulcers cauterized in the past; on pantoprazole - Maintain PPI. 21. OA; with history of knee surgery and chronic back pain - Give acetaminophen prn pain or fever. 22. DVT prophylaxis - SCD's only in llight of #2. Total time: Approximately (but not less than) 75 minutes. Charges/Coding Visit Charges Inpatient E&M: 20487 Init Hosp L3
[2025-01-08 05:04] LABS: Anion Gap 16 (5-15); BUN 27 mg/dL (4-19); Calcium 9.2 mg/dL (7.6-11.0); Carbon Dioxide 29.6 mmol/L (22.0-29.0); Chloride 93 mmol/L (96-108); Creatinine, Serum 4.51 mg/dL (0.70-1.20); EST Glomerular Filtration Rate 13 (>60); Estimated Creatinine Clearance 15.96 ml/min (50-250); Glucose 88 mg/dL (70-99); Potassium 4.2 mmol/L (3.3-5.1); Sodium Level 139 mmol/L (133-145)
[2025-01-08 05:22] LABS: Troponin T High Sensitivity 263 ng/L (<=22)
--- NOTE | 2025-01-08 05:51 | MRI_ITS ---
EXAM: BRAIN WITHOUT CONTRAST CLINICAL HISTORY: Acute CVA COMPARISON: None. TECHNIQUE: PROCEDURE: Multiplanar sequences of the brain were obtained on a 1.5 Ondina MRI system, including T1, T2, FLAIR, DWI, and ADC. No intravenous contrast was administered. FINDINGS: MRI BRAIN: No intraparenchymal hemorrhage is evident. There is diffusion restriction noted in the gyri of the mid left temporal lobe and postcentral gyrus of the left parietal lobe. There is no extra-axial fluid collection, mass effect, or shift of midline structures. The basal cisterns are visualized. The ventricles and cortical sulci are in proportion and consistent with the patient's age. There is no signal abnormality in the marx matter. There are a few scattered foci of T2/FLAIR hyperintensities in the supratentorial deep white matter that are nonspecific but most likely related to chronic small vessels ischemic changes and is age-appropriate. The midline structures demonstrate normal contours. The craniocervical junction is unremarkable. The flow voids of the large intracranial vessels are normal. The calvarium is unremarkable. Opacification of the right maxillary sinus with fluid layering in the left maxillary sinus. Fluid/cerumen in the left external auditory canal.. MRI/Brain without Contrast IMPRESSION: 1. Acute ischemia in the mid left temporal lobe and postcentral gyrus of the l eft parietal lobe. 2. Age-appropriate volume loss and remote small vessel ischemic changes 3. Chronic sinusitis 4. Fluid/cerumen in the left external auditory canal Findings communicated to Ila Oneal RN on 01/08/2025 at 1509 hours Reading Location: [facility]
--- NOTE | 2025-01-08 05:51 | EKG12_ITS ---
Test Reason : Blood Pressure : */* mmHG Vent. Rate : 91 BPM Atrial Rate : 91 BPM P-R Int : 226 ms QRS Dur : 156 ms QT Int : 424 ms P-R-T Axes : 62 -57 78 degrees QTcB Int : 521 ms Sinus rhythm with 1st degree A-V block with Fusion complexes and Premature atrial complexes Left axis deviation Left bundle branch block Abnormal ECG When compared with ECG of 08-Jan-2025 05:48, MANUAL COMPARISON REQUIRED DATA IS UNCONFIRMED Confirmed by Aric Palomo ([id number]), story editor BHAVNA LOOMIS ([id number]) on 01/09/2025 9:45:31 AM Referred By: Confirmed By: Aric Palomo
--- NOTE | 2025-01-08 05:51 | CDU_ITS ---
Reason For Study Reason For Study: Carotid stenosis Rt. Velocities/BP Lt. Velocities/BP Prox CCA 53.2/12.6 cm/sec. Prox CCA 72.8/15.1 cm/sec. Mid CCA 41.9/14.5 cm/sec. Mid CCA 64.2/15.1 cm/sec. Dist CCA 38.1/15.4 cm/sec. Dist CCA 60.5/13.9 cm/sec. Prox ICA 334.7/111 cm/sec. Prox ICA 52/21.2 cm/sec. Mid ICA 107/31.9 cm/sec. Mid ICA 98.1/35.5 cm/sec. Dist ICA 59.8/22 cm/sec. Dist ICA 98/27 cm/sec. Rt. ICA/CCA = 7.99. Lt. ICA/CCA = 1.53. Prox ECA 171.8/34.5 cm/sec. Prox ECA 71.8/10.2 cm/sec. Rt. Vert. 64.1/17.9 cm/sec. Lt. Vert. 52/13.5 cm/sec. Right Extracranial There is homogeneous, smooth atherosclerotic plaque noted in the right common carotid artery. There is heterogeneous, irregular atherosclerotic plaque noted in the right internal carotid artery. The right internal carotid artery is very tortuous. There is heterogeneous, irregular atherosclerotic plaque noted in the right external carotid artery. Antegrade flow is noted in the right vertebral artery. Left Extracranial There is homogeneous, smooth atherosclerotic plaque noted in the left common carotid artery. There is heterogeneous, irregular atherosclerotic plaque noted in the left internal carotid artery. There is homogeneous, smooth atherosclerotic plaque noted in the left external carotid artery. Antegrade flow is noted in the left vertebral artery. Procedure Carotid Duplex [id number]. This is a Carotid Duplex examination using B-mode, color flow and specral Doppler. Preliminary report given to Dr. Vargas. Exam performed portable in patient room. VL/Carotid Duplex Ultrasound Interpretation Summary Severe (>70%) stenosis right extracranial internal carotid. Mild (<50%) stenosis left extracranial internal carotid. Patent and antegrade vertebrals bilaterally Ordering Physician: Landon Martinez Referring Physician: Bekah Washington Performed By: Ashlie Mast RVT
[2025-01-08 06:24] LABS: TROPONIN VARIANCE 2 HR 32; Troponin T High Sens 2 HR 231 ng/L (<=22)
[2025-01-08 08:17] LABS: Alcohol, Blood (Medical)-Serum < 10.1 mg/dL (<=10.0); Hemoglobin A1c 4.6 % (<=5.6)
[2025-01-08 09:00] LABS: Vitamin B12 2441 pg/mL (180-914)
[2025-01-08 09:06] LABS: TROPONIN VARIANCE 4 HR 6; Troponin T High Sens 4 HR 257 ng/L (<=22)
[2025-01-08] MEDS: SEVELAMER CARBONATE 800 MG TABLET PO ×2 (12:25→17:21)
[2025-01-08] MEDS: Ascorbic Acid 500 MG Tablet PO ×2 (12:25→17:21)
[2025-01-08] MEDS: Atorvastatin Calcium 40 MG Tablet PO (12:25)
[2025-01-08] MEDS: Pantoprazole Sodium 40 MG Tablet PO ×2 (12:25→21:14)
[2025-01-08] MEDS: Aspirin 81 MG TAB.CHEW PO (12:25)
--- NOTE | 2025-01-08 13:06 | EX.PCM.CON.S ---
Assessment & Plan Assessment/Plan (1) Carotid stenosis, right: PLAN: -speech and facial symptoms most consistent with left hemispheric event -CTA images reviewed, right ICA 73% stenosis, soft plaque with minimal calcification with significant tortuousity beyond lesion -MRI pending -if left hemispheric infarct then not secondary to carotid disease; right HORACE lesion warrants consideration of treatment even if asymptomatic though this can be done after GI bleed and cardiac issues resolved -if right hemispheric infarct then ICA is likely the etiology and would warrant treatment more expedited; will still need cardiac optimization and may require [facility] tertiary level of care -will d/w Dr. Palomo who he follows with for his cardiac care HPI Consult Data Date of Consult: 01/08/25 HPI Narrative HPI Narrative: BINDU DUMONT, is a 69 M who presents with acute onset of right facial droop and expressive aphasia this morning which prompted him to seek medical attention. He has had no similar symptoms in the past. Since admission this morning his facial droop has improved some as has his expressive aphasia. He initially was completely unable to speak according to his and now he has some trouble finding words but for the most part can answer questions and converse in normal conversation. He has significant medical history and comorbidities including a recent TAVR done at [facility] and also apparently need for coronary artery stenting and a pacemaker which have yet to be performed. He also has significant recurrent GI bleeds most recently admitted approximately 2 weeks ago. He currently is not on antiplatelet medication at home that this has been initiated after admission. He is also end-stage renal disease currently on dialysis Thursday, , Thursday and he states that they have recently begun initiating heparinization with dialysis sessions again as there was concern is contributing to his GI bleed events. He has significant arthritis and has some limited mobility of his neck though he denies prior neck surgeries or radiation. [facility] Medical History Acute anemia Black stool History of transcatheter aortic valve replacement (TAVR) Wears glasses History of steroid therapy History of renal disease Low iron Rheumatoid arthritis Back pain Migraine headache Dietary restriction History of diverticulitis History of ulceration Shortness of breath on exertion Lymphedema History of echocardiogram Cardiology follow-up encounter Hypertension Chronic renal failure Anemia DVT (deep venous thrombosis) End stage renal disease on dialysis Secondary hyperparathyroidism Generalized weakness Acute on chronic anemia Chronic anemia Acute upper GI bleed History of end stage renal disease History of renal dialysis Dialysis patient Hepatitis Smoker Bursitis Problem with dialysis access Rectal bleeding Subclavian aneurysm Kidney failure due to vascular disorder Cardiac disease Rheumatoid vasculitis Rheumatoid aortitis Home Medications ?Medication ?Instructions ?Recorded ?Last Taken ?Type vitamin B complex-vitamin C-folic 1 tab PO DAILY RENAL HEALTH 12/12/23 12/27/24 History acid 0.8 mg tablet (Nephro-Christiano) cyanocobalamin (vitamin B-12) 1,000 mcg PO DAILY supplement 01/12/24 12/27/24 History 1,000 mcg tablet (Vitamin B-12) acetaminophen 500 mg tablet 1,000 mg PO BID PAIN 12/02/24 12/28/24 History carvedilol 12.5 mg tablet 12.5 mg PO BID High bp 12/02/24 12/28/24 History coenzyme Q10 200 mg capsule (Co 200 mg PO QDAY suppliment 12/02/24 12/27/24 History Q-10) epoetin beta, methoxy peg See Rx Instructions subcut 12/02/24 Unknown History .COMPLEX PRN low blood counts sevelamer carbonate 800 mg tablet 800 mg PO TIDCM phosphate binder 12/27/24 12/27/24 History ascorbic acid (vitamin C) 500 mg 500 mg PO BID suppliment #60 tabs 12/29/24 Unknown Rx tablet ferrous sulfate 325 mg (65 mg 325 mg PO QODAY anemia #30 tabs 12/29/24 Unknown Rx iron) tablet pantoprazole 40 mg tablet,delayed 40 mg PO BID stomach #60 tabs 12/29/24 Unknown Rx release (Protonix) cholecalciferol (vitamin D3) 10 10 mcg PO 3XW suppliment 01/06/25 Unknown History mcg (400 unit) capsule sensitar 90 mg PO 3XW 01/06/25 Unknown History losartan 25 mg tablet 25 mg PO BID heart 01/08/25 Unknown History Allergy/AdvReac Type Severity Reaction Status Date / Time No Known Allergies Allergy Verified 01/08/25 03:40 Family History Other Cancer Diabetes Heart disease Surgical History History of cardiac catheterization Hx of colonoscopy with polypectomy History of esophagogastroduodenoscopy (EGD) Hx of arteriovenostomy for renal dialysis (~12/2019) Status post insertion of dialysis catheter (~11/2019) History of umbilical hernia s/p subclavian graft S/P knee surgery History of bicuspid aortic valve Social History (Updated 01/08/25 @ 07:43 by Ila Oneal) household members: spouse housing: house Smoking Status: Heavy Smoker (>10/day) alcohol intake: never substance use type: does not use caffeine: Yes Type: coffee Number of servings: 2 ROS Constitutional Constitutional: Denies chills, fever(s), frequent falls, lethargy or weakness Eyes Eyes: Denies blind spots, change in vision or loss of vision ENT HEENT: Denies bleeding gums, hoarseness or sore throat Cardiovascular Cardiovascular: Reports leg edema; Denies abdominal pain, bluish discoloration of hand/feet, chest pain with activity, claudication, cold extremities, cyanosis, dyspnea on exertion, erythema on extremities, irregular heart rhythm, leg ulcers, numbness in extremities or weakness in extremities Respiratory/Chest Respiratory/Chest: Denies cough, excessive phlegm production, shortness of breath at rest, shortness of breath with exertion or wheezing Gastrointestinal Gastrointestinal: Denies anorexia, change in stool character, constipation, diarrhea, melena or rectal bleeding Genitourinary Genitourinary: Denies dysuria or hematuria Musculoskeletal Musculoskeletal: Denies abnormal gait Integumentary Integumentary: Denies erythema, non-healing lesions or wounds Neurologic Neurologic: Reports as per HPI and abnormal speech; Denies focal weakness, headache(s), loss of vision, numbness, paresthesias or sensory deficit Hematologic/Lymphatic Hematologic/Lymphatic: Denies easy bleeding, easy bruising or lymphadenopathy Physical Exam Const alert, oriented x3, no apparent distress and healthy appearing General Appearance: cooperative; Negative for combative or lethargic Orientation / Consciousness: awake Exam Limitations: no limitations HEENT Head and Scalp: normocephalic and atraumatic Eyes EOMs intact bilaterally General Eye: normal appearance of both eyes Neck full ROM and no lymphadenopathy General: trachea midline Resp normal respiratory effort and no use of accessory muscles Effort and Inspection: Negative for labored, stridor or audible wheezes Cardio regular rate and regular rhythm Peripheral Pulses: brachial pulses present and radial pulses present Back/Spine Cervical Spine: cervical ROM normal Extremity full ROM, normal capillary refill and no clubbing, cyanosis or edema Skin no rashes or lesions noted and no wounds Neuro oriented x3, CN's II-XII intact bilaterally and no sensory deficits noted Neuro Narrative: right facial droop Psych thought process normal, cooperative, affect normal, speech normal and activity/motor behavior normal Lab / Micro Data 01/08/25 03:42 01/08/25 03:42 Labs: Laboratory Results - last 24 hr 01/08/25 03:42: WBC 7.5, RBC 3.21 L, Hgb 10.7 L, Hct 33.7 L, MCV 105.0 H, MCH 33.3 H, MCHC 31.8 L, RDW Std Deviation 65.7 H, RDW Coeff of Brynn 17.0 H, Plt Count 258, MPV 9.6, Immature Gran % (Auto) 0.500, Neut % (Auto) 62.3, Lymph % (Auto) 17.8 L, [place] % (Auto) 15.9 H, Eos % (Auto) 2.7, Baso % (Auto) 0.8, Absolute Neuts (auto) 4.7, Absolute Lymphs (auto) 1.33, Nucleated RBC % 0.3, Anisocytosis 1+, PT 13.6, INR 1.0, APTT 30.4, Sodium 139, Potassium 4.2, Chloride Direct 93 L, Carbon Dioxide 29.6 H, Anion Gap 16 H, BUN 27 H, Creatinine 4.51 H, Estim Creat Clear Calc 15.96 L, Est GFR (MDRD) Non-Af 13 L, BUN/Creatinine Ratio 6.0 L, Glucose 88, Calcium 9.2, Troponin T High Sens 263 H* 01/08/25 05:47: Troponin T Hi Sens 2 Hr 231 H*, Troponin T Hi Sens 2Hr Delta 32 01/08/25 07:35: Hemoglobin A1c 4.6 L, Troponin T Hi Sens 4Hr 257 H*, Troponin T Hi Sens 4Hr Delta 6, Vitamin B12 2441 H, TSH 2.700, Ethyl Alcohol < 10.1 Rhythm Strip Rhythm Strip: Sinus Rhythm Rate: 100 Ectopy: None Imaging Radiology Impression Brain CT 01/08/25 03:40 IMPRESSION: NO ACUTE INTRACRANIAL ABNORMALITY. Reading Location: [id number] Head/Neck CTA 01/08/25 03:41 IMPRESSION: Soft and calcific plaque formation of the right carotid bulb and internal carotid artery with an associated greater than 70% luminal stenosis. Contrast is seen beyond throughout the remainder of the right internal carotid artery. Recommend follow-up vascular consult. [id number] appears intact without flow significant stenosis, vessel cut off or aneurysm. Paranasal sinus disease as above. Results were reported verbally by myself to Dr. Hernandez at 4:28 a.m. 01/08/2025 One or more dose reduction techniques were used (e.g., Automated exposure control, adjustment of the mA and/or kV according to patient size, use of iterative reconstruction technique). Reading Location: [id number] Chest X-Ray 01/08/25 04:17 IMPRESSION: No evidence of acute disease. Reading Location: [id number] Charges/Coding Visit Charges Inpatient E&M: 15815 Init Hosp L3
--- NOTE | 2025-01-08 13:45 | EKG12_ITS ---
Test Reason : REPEAT Blood Pressure : */* mmHG Vent. Rate : 103 BPM Atrial Rate : 103 BPM P-R Int : 196 ms QRS Dur : 156 ms QT Int : 406 ms P-R-T Axes : 21 -51 101 degrees QTcB Int : 531 ms Sinus tachycardia with occasional and consecutive Premature ventricular complexes and Fusion complexes Left axis deviation Left bundle branch block Abnormal ECG Confirmed by Aric Palomo ([id number]), editor index DARRIUS ALONSO ([id number]) on 01/09/2025 10:53:05 AM Referred By: Confirmed By: Aric Palomo
[2025-01-08 14:31] LABS: Cholesterol 129 mg/dL (<=200); High Density Lipoprotein 56 mg/dL; Low Density Lipoprotein Calc. 62 mg/dL; Triglycerides 56 mg/dL; Very Low Density Lipoprotein 11 mg/dL (5-40)
[2025-01-08] MEDS: 0.9% Saline Lock 10 ML Syringe IV (21:14)
[2025-01-09 03:18] VITALS: BP 140/84; PULSE 82; RESP 17; TEMP 37.1; O2SAT 97
[2025-01-09 03:23] VITALS: BMI 28.4
[2025-01-09 07:13] VITALS: BP 144/72; PULSE 80; RESP 16; TEMP 37.2; O2SAT 98
[2025-01-09 07:46] VITALS: O2SAT 96
[2025-01-09 08:46] LABS: Cholesterol 116 mg/dL (<=200); High Density Lipoprotein 51 mg/dL; Low Density Lipoprotein Calc. 57 mg/dL; Triglycerides 40 mg/dL; Very Low Density Lipoprotein 8 mg/dL (5-40); cholesterol:hdl ratio screen 2.27
[2025-01-09] MEDS: Ascorbic Acid 500 MG Tablet PO (09:01)
[2025-01-09] MEDS: Cyanocobalamin 500 MCG Tablet 1000 MCG PO (09:01)
[2025-01-09] MEDS: Aspirin 81 MG TAB.CHEW PO (09:01)
[2025-01-09] MEDS: SEVELAMER CARBONATE 800 MG TABLET PO ×2 (09:01→14:13)
[2025-01-09] MEDS: Pantoprazole Sodium 40 MG Tablet PO (09:01)
[2025-01-09] MEDS: Folic Acid/Vitamin B Comp W-C 1 Capsule 1 CAP PO ×2 (09:01→14:12)
[2025-01-09 11:10] VITALS: BP 152/94; PULSE 86; RESP 17; TEMP 37.2; O2SAT 99
--- NOTE | 2025-01-09 11:12 | CASEMGMT ---
SW completed a PHQ 9 with patient as he had a Stroke. Patient scored a 0 which indicates no depression. Patient declined need for counseling resources. Minnie DURON
[2025-01-09] MEDS: Acetaminophen 325 MG Tablet 650 MG PO (11:34)
--- NOTE | 2025-01-09 13:55 | DCINST_ITS ---
Discharge Instructions Diet Discharge Diet: Low fat / Low cholesterol and Renal Diet DC O2, CPAP, BIPAP needs Home O2 Discharge instructions: No Dressing / Incision Discharge Activity: Return to Normal Activity Dressing / Incision Call your doctor if you observe: Fever of 101 or Higher, Shortness of breath, Dizziness, Fainting spells, Swelling in the ankles, Chest pain and Increased palpitations (irregular heartbeat) Follow Up Care Test Results: Test results from this visit will be discussed in further detail at your follow- up appointment, if applicable. Discharge Plan Admission Admit Date/Time: 01/08/25 05:42 Attending Provider: Mathew Vargas Primary Care Provider: Bekah Washington Consulting Providers: Landon Martinez; Trevor Jerome; Michelle Gaytan; Pooja Vila; Eunice Banks; Grazyna Rene; Rell Kahn; Lacie Matos; Thaddeus Izquierdo; Mike Ca; Woodrow La; Keisha Brown; Travis De La Rosa; Candi Montes; Eris Salcedo; Rhett Hoyos; Marino Hirsch; Tamia Garza; Cal Muñiz; Mirian Walls; Angelica Petersen; Kojo Garcia Discharge Orders/Prescriptions Prescriptions: New atorvastatin 40 mg Tablet 40 mg PO QHS 30 Days Qty: 30 0RF aspirin 81 mg Tablet,Chewable 81 mg PO DAILYCM 30 Days Qty: 30 0RF Continued carvedilol 12.5 mg tablet 12.5 mg PO BID Rx Instructions: Does not take on Tuesdays, , and Saturdays due to dialysis coenzyme Q10 [Co Q-10] 200 mg capsule 200 mg PO QDAY epoetin beta, methoxy peg [Mircera] See Rx Instructions subcut .COMPLEX PRN (Reason: low blood counts) Rx Instructions: only in dialysis subcutaneously PRN; administered by dialysis infusion cholecalciferol (vitamin D3) 10 mcg (400 unit) capsule 10 mcg PO 3XW Rx Instructions: On dialysis day. Tue, car, Sat sensitar 90 mg PO 3XW Rx Instructions: Dialysis days. Tue, car, sat acetaminophen 500 mg tablet 1,000 mg PO BID Nephro-Christiano 0.8 mg tablet 1 tab PO DAILY cyanocobalamin (vitamin B-12) [Vitamin B-12] 1,000 mcg tablet 1,000 mcg PO DAILY sevelamer carbonate 800 mg tablet 800 mg PO TIDCM pantoprazole [Protonix] 40 mg tablet,delayed release (DR/EC) 40 mg PO BID Qty: 60 1RF ferrous sulfate 325 mg (65 mg iron) tablet 325 mg PO QODAY Qty: 30 2RF ascorbic acid (vitamin C) 500 mg tablet 500 mg PO BID Qty: 60 2RF losartan 25 mg Tablet 25 mg PO BID Rx Instructions: does not take am dose on dialysis days sat Other Ambulatory Orders: 30 Day Event Recorder Preventi (Routine) Timeframe: 1 Day Facility: [facility] - Location: Cardiovascular Services Ordered By: Dr. Mathew Vargas Referrals / Follow Up: Gino Case MD [Med Staff - Active Staff] - 04/13/25 6:00 pm Kojo Garcia MD [Med Staff - Active Staff] - Within 2 Weeks Hanh Russo MD [Med Staff - Consulting] - Within 3 Months Bekah Washington MD [Primary Care Provider] - Vitaly Dougherty MD [Non-Staff -Ordering Privileges] - Within 1 Week Disposition Disposition (needs filled in before D/C Order can be placed): Home, Self Care
[2025-01-09] MEDS: Ferrous Sulfate 325 MG Tablet PO (14:12)
[2025-01-09 15:00] VITALS: BP 153/88; PULSE 80; RESP 17; TEMP 37; O2SAT 98
--- NOTE | 2025-01-09 15:17 | CASEMGMT ---
REBECCA REDMOND received script for outpatient speech therapy. REBECCA REDMOND faxed order to [facility] [employer] with request to call patient to schedule appt. Discharge plan updated.
[2025-01-09 15:43] VITALS: BMI 28.4
--- NOTE | 2025-01-09 15:50 | CHAPLAIN ---
Type of Pastoral Visit _x__ Initial Visit ___ Follow-up Visit ___ On-call Visit ___ General Patient Visit ___ Spiritual Assessment ___ Family Conference ___ Bereavement ___ Rapid Response ___ Code Blue ___ Other (describe below) Pastoral Care Referral From _x__ Patient _x__ Family _x__ Nurse ___ Physician ___ Category Development Analyst ___ Ruby Software Developer ___ Other (describe below) Sacrament/Intervention _x__ Active listening ___ Anointing ___ Shinto ___ Bereavement ___ Communion ___ Mee exploration ___ ___ Life review _x__ Prayer ___ Reconciliation ___ Sacrament of Sick _x__ Supportive presence ___ Wedding ___ Other (describe below) Pastoral Comments requests came from spouse and RN to have a spiritual care visit for this patient; pt had been seen a couple of weeks ago for another issue that he had; pt was welcoming and explained his stroke and what had happened to him yesterday morning; pt expects to go home tonight but wants support and encouragement for the process ahead; pt's speech is affected but he is still able to express himself; pt is tearful at times in the conversation; pt welcomes presence and support for today and in the future if possible; prayer given
--- NOTE | 2025-01-09 16:33 | CASEMGMT ---
REBECCA REDMOND chart review: Patient was admitted 12/27-12/29/24 for GI bleed and anemia. See assessment from 12/27/24. Patient was discharged to home with family support and follow-up plans in place. Patient returned to [facility] ED on 01/08/25 for slurred speech right facial droop. Patient was admitted for stroke work-up and was positive for stroke. REBECCA REDMOND in to discuss readmission and needs at discharge. Patient states he was taking medications as prescribed and attended his follow-up appts. Patient and would like outpatient speech therapy at [facility] and prefers that [facility] call patient to schedule. Patient and deny further questions or concerns.
--- NOTE | 2025-01-09 16:37 | PCM.DC.SUM ---
Providers Date of Admission: 01/08/25 Primary Care Physician: Dr. Bekah Washington MD Consultations 01/08/25 07:38 Consult: Tele-Neurology Routine Consulting Provider: [facility] Reason for Consult: Acute Ischemic Stroke/TIA EMERGENT Consult: No Notified: Yes Date Notified: 01/08/25 Time Notified: 07:54 Method of Notification: Answering Service Nursing Unit Staff Notify [facility] of Tele-Neurology Consult: Yes Consult: Vascular Surgery Routine Consulting Provider: Kojo Garcia Reason for Consult: ~70% Right Carotid Stenosis on CTA with Acute Ischemic CVA EMERGENT Consult: No Notified: Yes Date Notified: 01/08/25 Time Notified: 12:00 Method of Notification: Verbal Comments:: md in room Reason For Visit: ACUTE ISCHEMIC RIGHT CVA WITH RIGHT CAROTID Diagnosis Discharge Diagnosis (1) Carotid stenosis, right: Status: Acute Code(s): I65.21 - Occlusion and stenosis of right carotid artery Medications at Discharge Home Medications vitamin B complex-vitamin C-folic acid 0.8 mg tablet (Nephro-Christiano) 1 tab PO DAILY RENAL HEALTH 12/12/23 cyanocobalamin (vitamin B-12) 1,000 mcg tablet (Vitamin B-12) 1,000 mcg PO DAILY supplement 01/12/24 acetaminophen 500 mg tablet 1,000 mg PO BID PAIN 12/02/24 carvedilol 12.5 mg tablet 12.5 mg PO BID High bp 12/02/24 coenzyme Q10 200 mg capsule (Co Q-10) 200 mg PO QDAY suppliment 12/02/24 epoetin beta, methoxy peg See Rx Instructions subcut .COMPLEX PRN low blood counts 12/02/24 sevelamer carbonate 800 mg tablet 800 mg PO TIDCM phosphate binder 12/27/24 ascorbic acid (vitamin C) 500 mg tablet 500 mg PO BID suppliment #60 tabs 12/29/24 ferrous sulfate 325 mg (65 mg iron) tablet 325 mg PO QODAY anemia #30 tabs 12/29/24 pantoprazole 40 mg tablet,delayed release (Protonix) 40 mg PO BID stomach #60 tabs 12/29/24 cholecalciferol (vitamin D3) 10 mcg (400 unit) capsule 10 mcg PO 3XW suppliment 01/06/25 sensitar 90 mg PO 3XW 01/06/25 losartan 25 mg tablet 25 mg PO BID heart 01/08/25 aspirin 81 mg chewable tablet 81 mg PO DAILYCM 30 days #30 tabs 01/09/25 atorvastatin 40 mg tablet 40 mg PO QHS 30 days #30 tabs 01/09/25 Hospital Course Operations None Procedures None Summary of Care Provided Minutes Spent on Discharge: 39 Hospital Course: Per HPI: BINDU JOE, is a 69 M with a past medical history of essential hypertension; on losartan and carvedilol, overweight with BMI of 27.4 this admission, ESRD; on HD () with last dialysis yesterday, chronic anemia; primarily due to renal disease with superimposed BERTRAND on oral ferrous sulfate and epoetin beta, history of bicuspid aortic valve with insufficiency; s/p TAVR (04/2024), history of CAD; with patient in need of stent when he can tolerate aspirin, chronic systolic CHF; LVEF ~25% (09/2024), RA; with associated rheumatoid vasculitis and aortitis, history of subclavian aneurysm (~2014); s/p subclavian graft, history of RUE DVT due to aneurysm (~2014), hepatitis C positive; with genotype 1b without cirrhosis PCR RNA quant was 1 million with patient having completed Epclusa therapy x 12 weeks with subsequent PCR RNA quant continuing to be normal, history of diverticulitis, history of colonoscopy with polypectomy (2023), history of umbilical hernia, history of lower extremity lymphedema, chronic tobacco abuse, history of migraine headache, GERD with history of PUD causing for peptic ulcers cauterized in the past; on pantoprazole, OA; with history of knee surgery and chronic back pain and recent admission here from December 27, 2024 to December 29, 2024 for treatment of Melanotic Stools with increased weakness and fatigue for ~4-5 days secondary to UGIB with 1 unit of PRBCs ordered and patient found to have a single bleeding angiodysplastic lesion in the stomach treated with a heater probe by Dr. Ross of gastroenterology in addition to elevated troponin suspected to be due to demand ischemia this who re-presents to [facility] ER complaining of slurred speech and Right facial droop. Mr. Joe reports he woke up approximately 25 minutes prior to admission at ~3:40 AM with difficulty talking and weakness in his Right arm so he immediately activated EMS. He denies abnormal gait, seizure activity, disequilibrium, headache, paresthesias or other focal neurologic deficits. There was no report of fever, chills, nausea, vomiting, constipation, diarrhea, abdominal pain, chest pain, shortness of breath, rash or currently being on antiplatelet/anticoagulation therapy. In the ER he was noted to have a CTA of the head and neck with IV contrast that revealed soft and calcific plaque formation of the Right carotid bulb and internal carotid artery with an associated ~70% luminal stenosis with contrast seen beyond throughout the remainder of the Right internal coronary artery with recommended follow-up with vascular surgery with additional mention of [id number] appearing intact without flow significant stenosis, vessel cutoff or aneurysm and paranasal sinus disease with a CXR that was also negative for acute pathologic findings. He was noted to have a hemoglobin of 10.7 g/dL present on admission (up from his last check on December 29, 2024 and 8.3 g/dL) with otherwise unremarkable laboratory studies. He was then diagnosed with Acute Ischemic CVA; likely due to significant Right Carotid Artery Stenosis in the setting of recent UGIB with melanotic stool requiring transfusion of 1 unit PRBCs with subsequent EGD finding Angiodysplastic Lesion in the stomach treated with electrocautery and he was then admitted to the PCU for ongoing care for status expected to extend beyond 2 midnights. Hospital Course: 1. Acute CVA in the left temporal lobe and postcentral gyrus of the left parietal lobe?69-year-old male presented to the hospital signs and symptoms consistent of a left-sided stroke with facial droop. Speech was impacted but every visit thing is improving though he still has a left facial droop. His case is exceedingly complicated with the fact that he has a right sided internal carotid artery stenosis that will need to be repaired as an outpatient also vascular surgery noted that the new [place] in him is not intact which complicates said repair. He also has an EF of 25% because of a history of rheumatoid vasculitis and aortitis and a history of subclavian aneurysm. He also is on dialysis for renal failure which has led to new onset AVMs which puts him at a decent risk of bleeding however given his stroke he needs to be on aspirin. He did have ulcers in the past but these seem to have healed and his last GI bleed 10 days ago was due to an AVM. He needs to follow-up with gastroenterology as an outpatient for capsule endoscopy of the small bowel. Since we do not have a choice he will be started on aspirin and continued on Protonix 40 mg p.o. twice daily. Also continue with Lipitor. Did not repeat his echocardiogram as he had one from September 2024. Appreciate cardiology's assistance. Will continue with his home blood pressure medications and have him follow-up with vascular surgery as an outpatient as well as neurology. Will order 30-day event monitor on discharge as well. I discussed with him and his the plan for discharge today and they expressed understanding of the risks and benefits of going home and would like to go home today. 2. Essential hypertension, chronic systolic CHF, hyperlipidemia, history of GI bleed with AVMs and gastric ulcers, iron deficiency anemia, end-stage renal disease, rheumatoid arthritis are all chronic medical conditions which complicate his care. His home medications were continued continued where appropriate. Of note, he does need to have a cardiac stent placed so he will need close follow-up with cardiology as well hopefully the cardiac stent as well as the right carotid artery can be done in close chronological order to minimize the duration of dual antiplatelet therapy is much as possible. Physical Exam Narrative General: Alert, Oriented x3, Cooperative, No apparent distress HEENT: Atraumatic, PERRLA, EOMI, Normocephalic Oral: Moist Mucosa Neck: Supple, No JVD Lungs: Diminished, Normal air movement, No rhonchi, No wheeze, No rales Cardiovascular: Regular rate, Regular Rhythm, Normal S1, Normal S2, No murmurs Abdomen: Soft, Non Tender, Non-Distended, No Hepato-splenomegaly Extremities: Edema, Capillary Refill Less than 3 Seconds Skin: No rashes, No breakdown Musculoskeletal: No Tenderness to Palpation of Joints or Extremities Neurological: Left facial droop with mild dysarthria Psych/Mental Status: Normal Affect, Appropriate Weight / BMI Weight Weight: 198 lb 3.129 oz Body Mass Index (BMI) 28.4 ABG / Lab / Microbiology Data 01/08/25 03:42 01/08/25 03:42 Laboratory: Laboratory Results - last 24 hr 01/08/25 07:35: Troponin T Hi Sens 4Hr 257 H*, Troponin T Hi Sens 4Hr Delta 6, Triglycerides 56, Cholesterol 129, LDL Cholesterol, Calc 62, VLDL Cholesterol 11, HDL Cholesterol 56, Cholesterol/HDL Ratio 2.30, Vitamin B12 2441 H, TSH 2.700 01/09/25 07:00: Triglycerides 40, Cholesterol 116, LDL Cholesterol, Calc 57, VLDL Cholesterol 8, HDL Cholesterol 51, Cholesterol/HDL Ratio 2.27 Radiography Diagnostic Testing: Radiology Impression Carotid Duplex 01/08/25 05:51 Interpretation Summary Severe (>70%) stenosis right extracranial internal carotid. Mild (<50%) stenosis left extracranial internal carotid. Patent and antegrade vertebrals bilaterally Ordering Physician: Landon Martinez Referring Physician: Bekah Washington Performed By: Ashlie Mast Juan D/C Instructions Discharge Diet: Low fat / Low cholesterol and Renal Diet Call your doctor if you observe: Fever of 101 or Higher, Shortness of breath, Dizziness, Fainting spells, Swelling in the ankles, Chest pain and Increased palpitations (irregular heartbeat) DC O2, CPAP, BIPAP Needs Home O2 Discharge instructions: No Meaningful Use Info Meaningful Use Meaningful Use Diagnoses (Choose all that apply): None applicable Ischemic Stroke Statin Dosing Therapy Reference: STATIN DOSE THERAPY REFERENCE: * Patients > 75 years receive moderate or high dose statin therapy. * Patients 75 years or YOUNGER should receive HIGH intensity statin dose unless contraindicated. You will be required to document reason for non-treatment if statin daily dose does not meet guidelines. HIGH DOSE STATIN THERAPY DAILY Atorvastatin > than or = to 40 mg Rosuvastatin > than or = to 20 mg Amlodipine + Atorvastatin > than or = to 2.5/40 mg Ezetimibe + Simvastatin 10/80 mg Simvastatin 80mg Discharge Plan Admission Admit Date/Time: 01/08/25 05:42 Attending Provider: Mathew Vargas Primary Care Provider: Bekah Washington Consulting Providers: Landon Martinez; Trevor Jerome; Michelle Gaytan; Pooja Vila; Eunice Banks; Grazyna Rene; Rell Kahn; Lacie Matos; Thaddeus Izquierdo; Mike Ca; Woodrow La; Keisha Brown; Travis De La Rosa; Candi Montes; Eris Salcedo; Rhett Hoyos; Marino Hirsch; Tamia Garza; Cal Muñiz; Mirian Walls; Angelica Petersen; Kojo Garcia Discharge Orders/Prescriptions Prescriptions: New atorvastatin 40 mg Tablet 40 mg PO QHS 30 Days Qty: 30 0RF aspirin 81 mg Tablet,Chewable 81 mg PO DAILYCM 30 Days Qty: 30 0RF Continued carvedilol 12.5 mg tablet 12.5 mg PO BID Rx Instructions: Does not take on Tuesdays, , and Saturdays due to dialysis coenzyme Q10 [Co Q-10] 200 mg capsule 200 mg PO QDAY epoetin beta, methoxy peg [Mircera] See Rx Instructions subcut .COMPLEX PRN (Reason: low blood counts) Rx Instructions: only in dialysis subcutaneously PRN; administered by dialysis infusion cholecalciferol (vitamin D3) 10 mcg (400 unit) capsule 10 mcg PO 3XW Rx Instructions: On dialysis day. Thu, Sat sensitar 90 mg PO 3XW Rx Instructions: Dialysis days. Thu, car, sat acetaminophen 500 mg tablet 1,000 mg PO BID Nephro-Christiano 0.8 mg tablet 1 tab PO DAILY cyanocobalamin (vitamin B-12) [Vitamin B-12] 1,000 mcg tablet 1,000 mcg PO DAILY sevelamer carbonate 800 mg tablet 800 mg PO TIDCM pantoprazole [Protonix] 40 mg tablet,delayed release (DR/EC) 40 mg PO BID Qty: 60 1RF ferrous sulfate 325 mg (65 mg iron) tablet 325 mg PO QODAY Qty: 30 2RF ascorbic acid (vitamin C) 500 mg tablet 500 mg PO BID Qty: 60 2RF losartan 25 mg Tablet 25 mg PO BID Rx Instructions: does not take am dose on dialysis days sat Other Ambulatory Orders: 30 Day Event Recorder Preventi (Routine) Timeframe: 1 Day Facility: [facility] - Location: Cardiovascular Services Ordered By: Dr. Mathew Vargas Referrals / Follow Up: Gino Case MD [Med Staff - Active Staff] - 04/13/25 6:00 pm Kojo Garcia MD [Med Staff - Active Staff] - 02/10/25 2:30 pm Hanh Russo MD [Med Staff - Consulting] - Within 3 Months Bekah Washington MD [Primary Care Provider] - Vitaly Dougherty MD [Non-Staff -Ordering Privileges] - 04/12/25 8:30 am (Appointment is with Dr. Arrieta) Disposition Disposition (needs filled in before D/C Order can be placed): Home, Self Care Charges/Coding Visit Charges Inpatient E&M: 01981 Disch Hosp >30min
[2025-01-09 16:45] VITALS: BMI 28.4
--- NOTE | 2025-01-10 00:02 | STROKE.CONS ---
Assessment and Plan: Stroke Assessment/Plan BINDU DUMONT is a 69 M with a history of CAD, [place] stenosis, h/o TAVR, CHF ESRD, who presents for evaluation of aphasia. Seen on tele by me, could not get TNK due to recent GiB. Neurological examination shows NIH 1. Improved significantly. Neuroimaging shows L MCA stroke. [place] stenosis. - Anti-platelet medication: Aspirin 81 mg daily. He gets his hemoglobin checked weekly. SO if it goes down again or another GiB stop ASA. - Occupational/ Physical therapy consults - NPO until swallow evaluation. IVF until able to take po - DVT prophylaxis with SCDs and heparin SQ - Vascular risk factor modification. The following are the recommended guidelines: LDL Goal < 70 Smoking Cessation Diabetes Management A1C < 6.5 care home blood pressure control should achieve <130/80 mmHg. BP management should aim to achieve snf control in a reasonable amount of time, taking into consideration the individual patient's requirements and characteristics. Weight Management: Goal for BMI is 18.5 -24.9 kg/m2 Alcohol: No more than 2 drinks/day for men or 1 drink/day for non- women - Promote lifestyle modification: weight control, physical activity, moderation of alcohol intake, moderate sodium intake. Followup with PCP in 1-2 weeks, and in Neurology clinic in 6-12 weeks HPI Consult Data Date of Consult: 01/10/25 HPI Narrative HPI Narrative: BINDU DUMONT, is a 69 M who presentswith aphasia. Was seen on tele. No TNK due to GiB. CT no ICH. CTA with CAROL[place] stenosis, 70%. [facility] Medical History Acute anemia Black stool History of transcatheter aortic valve replacement (TAVR) Wears glasses History of steroid therapy History of renal disease Low iron Rheumatoid arthritis Back pain Migraine headache Dietary restriction History of diverticulitis History of ulceration Shortness of breath on exertion Lymphedema History of echocardiogram Cardiology follow-up encounter Hypertension Chronic renal failure Anemia DVT (deep venous thrombosis) End stage renal disease on dialysis Secondary hyperparathyroidism Generalized weakness Acute on chronic anemia Chronic anemia Acute upper GI bleed History of end stage renal disease History of renal dialysis Dialysis patient Hepatitis Smoker Bursitis Problem with dialysis access Rectal bleeding Subclavian aneurysm Kidney failure due to vascular disorder Cardiac disease Rheumatoid vasculitis Rheumatoid aortitis Home Medications ?Medication ?Instructions ?Recorded ?Last Taken ?Type vitamin B complex-vitamin C-folic 1 tab PO DAILY RENAL HEALTH 12/12/23 12/27/24 History acid 0.8 mg tablet (Nephro-Christiano) cyanocobalamin (vitamin B-12) 1,000 mcg PO DAILY supplement 01/12/24 12/27/24 History 1,000 mcg tablet (Vitamin B-12) acetaminophen 500 mg tablet 1,000 mg PO BID PAIN 12/02/24 12/28/24 History carvedilol 12.5 mg tablet 12.5 mg PO BID High bp 12/02/24 12/28/24 History coenzyme Q10 200 mg capsule (Co 200 mg PO QDAY suppliment 12/02/24 12/27/24 History Q-10) epoetin beta, methoxy peg See Rx Instructions subcut 12/02/24 Unknown History .COMPLEX PRN low blood counts sevelamer carbonate 800 mg tablet 800 mg PO TIDCM phosphate binder 12/27/24 12/27/24 History ascorbic acid (vitamin C) 500 mg 500 mg PO BID suppliment #60 tabs 12/29/24 Unknown Rx tablet ferrous sulfate 325 mg (65 mg 325 mg PO QODAY anemia #30 tabs 12/29/24 Unknown Rx iron) tablet pantoprazole 40 mg tablet,delayed 40 mg PO BID stomach #60 tabs 12/29/24 Unknown Rx release (Protonix) cholecalciferol (vitamin D3) 10 10 mcg PO 3XW suppliment 01/06/25 Unknown History mcg (400 unit) capsule sensitar 90 mg PO 3XW 01/06/25 Unknown History losartan 25 mg tablet 25 mg PO BID heart 01/08/25 Unknown History aspirin 81 mg chewable tablet 81 mg PO DAILYCM 30 days #30 tabs 01/09/25 Unknown Rx atorvastatin 40 mg tablet 40 mg PO QHS 30 days #30 tabs 01/09/25 Unknown Rx Allergy/AdvReac Type Severity Reaction Status Date / Time No Known Allergies Allergy Verified 01/08/25 03:40 Family History Other Cancer Diabetes Heart disease Surgical History History of cardiac catheterization Hx of colonoscopy with polypectomy History of esophagogastroduodenoscopy (EGD) Hx of arteriovenostomy for renal dialysis (~12/2019) Status post insertion of dialysis catheter (~11/2019) History of umbilical hernia s/p subclavian graft S/P knee surgery History of bicuspid aortic valve Social History household members: spouse housing: house Smoking Status: Heavy Smoker (>10/day) alcohol intake: never substance use type: does not use caffeine: Yes Type: coffee Number of servings: 2 Vital Signs Vital Signs Vital Signs: 01/09/25 03:18 01/09/25 03:24 01/09/25 07:10 Temperature 98.8 F Temperature Source Oral Pulse Rate 82 Respiratory Rate 17 Respiratory Effort Normal Non-Labored Normal Respiratory Depth Normal Respiratory Pattern Normal Blood Pressure 140/84 H Blood Pressure Mean 102 Blood Pressure Source Monitor Blood Pressure Position Sitting Blood Pressure Location Right Forearm Pulse Ox 97 Oxygen Delivery Method Room Air Room Air Room Air 01/09/25 07:13 01/09/25 07:46 01/09/25 11:10 Temperature 99.0 F 98.9 F Temperature Source Temporal Oral Pulse Rate 80 86 Respiratory Rate 16 17 Respiratory Effort Respiratory Depth Respiratory Pattern Blood Pressure 144/72 H 152/94 H Blood Pressure Mean 96 113 Blood Pressure Source Monitor Monitor Blood Pressure Position Semi-Fowlers Semi-Fowlers Blood Pressure Location Right Arm Right Arm Pulse Ox 98 96 99 Oxygen Delivery Method Room Air Room Air Room Air 01/09/25 15:00 Temperature 98.6 F Temperature Source Oral Pulse Rate 80 Respiratory Rate 17 Respiratory Effort Respiratory Depth Respiratory Pattern Blood Pressure 153/88 H Blood Pressure Mean 109 Blood Pressure Source Monitor Blood Pressure Position Semi-Fowlers Blood Pressure Location Right Arm Pulse Ox 98 Oxygen Delivery Method Room Air Weight Weight: 89.9 kg Body Mass Index (BMI) 28.4 EEG Results Procedure Details EEG Procedure Details: BINDU DUMONT is a 69 year old M with a past medical history of , who presents for evaluation of Electroencephalogram on DATE at TIME NIHSS NIHSS Nursing Documentation NIHSS Nursing Documentation: NIHSS: Ischemic Stroke/TIA Start: 01/08/25 07:16 Freq: [id number] Status: Discharge Protocol: Activity Type Activity Date Activity User E-sign Co-sign Detail Recorded Client Recorded Date Recorded By Document 01/09/25 16:43 ML [id number] 01/09/25 16:43 ML 01/09/25 16:43 NIH Stroke Scale [NIHSS] A score of 0 is normal or asymptomatic . Total possible score is 42. Inpatient: RN or Physician to activate a stroke alert for onset of new stroke symptoms or with NIHSS increase >/= 3 points. Following change in neurological status, NIHSS will be performed per physician order or more frequently PRN. -1a. Level of Consciousness Alert; keenly responsive -1b. LOC Questions Answers BOTH questions correctly. -1c. LOC Commands Performs both tasks correctly . -2. Best Gaze Normal -3. Visual No visual loss -4. Facial Palsy Minor paralysis (flattened nasolabial fold , asymmetry on smiling) -5a. Left Arm No drift; arm holds 90 (or 45 ) degrees for full 10 seconds -5b. Right Arm No drift; arm holds 90 (or 45 ) degrees for full 10 seconds -6a. Left Leg No drift; leg holds 30-degree position for full 5 seconds -6b. Right Leg No drift; leg holds 30-degree position for full 5 seconds -7. Limb Ataxia Absent -8. Sensory Normal; no sensory loss -9. Best Language Mild-to- moderate aphasia; -10. Dysarthria Mild-to- moderate dysarthria; -11. Extinction and Inattention No abnormality -Total 3 Query Text:A score of 0 is normal or asymptomatic. Total possible score is 42 . ED: Notify Physician for NIHSS increase by > / = 3 points. Inpatient: RN or Physician to activate a stroke alert for NIHSS increase of > / = 3 points. Coma Scale [Assess] -Eye Opening Spontaneous -Motor Obeys Commands -Verbal Oriented [Total] -Coma Scale Total 15 Lab / Micro Data 01/08/25 03:42 01/08/25 03:42 Labs: Laboratory Results - last 24 hr 01/08/25 07:35: Troponin T Hi Sens 4Hr 257 H*, Troponin T Hi Sens 4Hr Delta 6, Triglycerides 56, Cholesterol 129, LDL Cholesterol, Calc 62, VLDL Cholesterol 11, HDL Cholesterol 56, Cholesterol/HDL Ratio 2.30, Vitamin B12 2441 H, TSH 2.700 01/09/25 07:00: Triglycerides 40, Cholesterol 116, LDL Cholesterol, Calc 57, VLDL Cholesterol 8, HDL Cholesterol 51, Cholesterol/HDL Ratio 2.27 Rhythm Strip Rhythm Strip: Sinus Rhythm Rate: 100 Ectopy: None Imaging Radiology Impression Carotid Duplex 01/08/25 05:51 Interpretation Summary Severe (>70%) stenosis right extracranial internal carotid. Mild (<50%) stenosis left extracranial internal carotid. Patent and antegrade vertebrals bilaterally Ordering Physician: Landon Martinez Referring Physician: Bekah Washington Performed By: Ashlie Mast RVT
== END 2025-01-09 16:48 | disposition home or self-care (01) | DRG 64 ==
LOC: ED 04:38 → PCU 05:56
PROVIDERS: Admitting Provider Internal Medicine; Emergency Provider Emergency Medicine; PCP Internal Medicine; Visit Provider Family Medicine
DX: I63.89 Other cerebral infarction (principal); N18.6 End stage renal disease; I13.2 Hypertensive heart and chronic kidney disease with heart failure and with stage 5 chronic kidney disease, or end stage renal disease; I01.1 Acute rheumatic endocarditis; I50.22 Chronic systolic (congestive) heart failure; M05.20 Rheumatoid vasculitis with rheumatoid arthritis of unspecified site; D63.1 Anemia in chronic kidney disease; G83.23 Monoplegia of upper limb affecting right nondominant side; I65.21 Occlusion and stenosis of right carotid artery; I35.2 Nonrheumatic aortic (valve) stenosis with insufficiency; Z99.2 Dependence on renal dialysis; D50.9 Iron deficiency anemia, unspecified; F17.200 Nicotine dependence, unspecified, uncomplicated; I25.10 Atherosclerotic heart disease of native coronary artery without angina pectoris; I44.7 Left bundle-branch block, unspecified; K21.9 Gastro-esophageal reflux disease without esophagitis; M19.90 Unspecified osteoarthritis, unspecified site; M54.9 Dorsalgia, unspecified; Z95.2 Presence of prosthetic heart valve; E66.3 Overweight; R29.703 NIHSS score 3; I49.3 Ventricular premature depolarization; R29.810 Facial weakness; R47.1 Dysarthria and anarthria; G89.29 Other chronic pain; Z87.19 Personal history of other diseases of the digestive system; Z86.718 Personal history of other venous thrombosis and embolism; Z79.899 Other long term (current) drug therapy; Z68.27 Body mass index [BMI] 27.0-27.9, adult; Z87.11 Personal history of peptic ulcer disease; Q23.81 Bicuspid aortic valve
CPT/HCPCS: 70450; 70496; 70498; 70551; 71045; 80048; 80061; 82077; 82607; 83036; 84443; 84484; 85025; 85610; 85730; 92523; 92526; 92610; 93005; 93880; 94640; 94762; 97116; 97129; 97130; 97162; 97166; 97802; 99285; Q9967; A4216

== ENCOUNTER 2025-01-19 17:09 | Inpatient (IN) | payer MEDICARE, BC, SELFPAY ==
[2024-12-30 10:19] VITALS: BMI 29.4
[2025-01-19 17:10] VITALS: BP 135/60; PULSE 91; RESP 16; TEMP 36.4; O2SAT 96
[2025-01-19 17:12] VITALS: BMI 28.6
--- NOTE | 2025-01-19 17:19 | EX.ED.DYSGE1 ---
HPI History of Present Illness Chief Complaint: GI Bleed [facility] Medical History Acute anemia Black stool History of transcatheter aortic valve replacement (TAVR) Wears glasses History of steroid therapy History of renal disease Low iron Rheumatoid arthritis Back pain Migraine headache Dietary restriction History of diverticulitis History of ulceration Shortness of breath on exertion Lymphedema History of echocardiogram Cardiology follow-up encounter Hypertension Chronic renal failure Anemia DVT (deep venous thrombosis) End stage renal disease on dialysis Secondary hyperparathyroidism Generalized weakness Acute on chronic anemia Chronic anemia Acute upper GI bleed History of end stage renal disease History of renal dialysis Dialysis patient Hepatitis Smoker Bursitis Problem with dialysis access Rectal bleeding Subclavian aneurysm Kidney failure due to vascular disorder Cardiac disease Rheumatoid vasculitis Rheumatoid aortitis Home Medications ?Medication ?Instructions ?Recorded ?Last Taken ?Type vitamin B complex-vitamin C-folic 1 tab PO DAILY RENAL HEALTH 12/12/23 01/18/25 History acid 0.8 mg tablet (Nephro-Christiano) cyanocobalamin (vitamin B-12) 1,000 mcg PO DAILY supplement 01/12/24 01/19/25 History 1,000 mcg tablet (Vitamin B-12) acetaminophen 500 mg tablet 1,000 mg PO BID PAIN 12/02/24 01/19/25 History carvedilol 12.5 mg tablet 12.5 mg PO BID High bp 12/02/24 01/18/25 History coenzyme Q10 200 mg capsule (Co 200 mg PO DAILY suppliment 12/02/24 01/19/25 History Q-10) epoetin beta, methoxy peg See Rx Instructions subcut 12/02/24 01/05/25 History .COMPLEX PRN low blood counts sevelamer carbonate 800 mg tablet 800 mg PO TIDCM phosphate binder 12/27/24 01/19/25 History ascorbic acid (vitamin C) 500 mg 500 mg PO BID suppliment #60 tabs 12/29/24 01/19/25 Rx tablet ferrous sulfate 325 mg (65 mg 325 mg PO QODAY anemia #30 tabs 12/29/24 01/17/25 Rx iron) tablet pantoprazole 40 mg tablet,delayed 40 mg PO BID stomach #60 tabs 12/29/24 01/19/25 Rx release (Protonix) cholecalciferol (vitamin D3) 10 10 mcg PO 3XW suppliment 01/06/25 01/19/25 History mcg (400 unit) capsule sensitar 90 mg PO 3XW 01/06/25 01/19/25 History losartan 25 mg tablet 25 mg PO BID heart 01/08/25 Unknown History atorvastatin 40 mg tablet 40 mg PO QHS #90 tabs 01/16/25 01/18/25 Rx aspirin 81 mg chewable tablet 81 mg PO DAILY 01/19/25 01/19/25 History Allergy/AdvReac Type Severity Reaction Status Date / Time No Known Allergies Allergy Verified 01/19/25 17:12 Family History Other Cancer Diabetes Heart disease Surgical History History of cardiac catheterization Hx of colonoscopy with polypectomy History of esophagogastroduodenoscopy (EGD) Hx of arteriovenostomy for renal dialysis (~12/2019) Status post insertion of dialysis catheter (~11/2019) History of umbilical hernia s/p subclavian graft S/P knee surgery History of bicuspid aortic valve Social History household members: spouse housing: house Smoking Status: Light Smoker (<10/day) alcohol intake: never substance use type: does not use caffeine: Yes Type: coffee Number of servings: 2 EXAM Physical Exam Const Vital Signs: 01/19/25 17:10 01/19/25 19:09 Temperature 97.5 F L Temperature Source Temporal Pulse Rate 91 74 Respiratory Rate 16 14 Blood Pressure 135/60 H 141/62 H Blood Pressure Mean 85 88 Pulse Ox 96 Oxygen Delivery Method Room Air MDM MDM MDM Narrative Medical decision making narrative: HISTORY OF PRESENT ILLNESS: 69-year-old male presents concern for GI bleed. Notes this afternoon he had a large amount of bright red blood per rectum filling the toilet. He is not currently bleeding now. Denies symptoms such as lightheadedness, dizziness, fatigue, chest pain or shortness of breath. Does not think he appears more pale than usual. His agrees with this. REVIEW OF SYSTEMS: Pertinent positives: Bright red blood per rectum Pertinent negatives: Lightheadedness, fatigue, chest pain PHYSICAL EXAM: Nursing triage notes reviewed, Vital signs reviewed Constitutional: please see [facility] HENT: MMM Eyes: Pupils equal round and reactive to light, Extraocular muscles intact Neck: No stridor, no JVD, full neck ROM Lungs: Clear to auscultation, No wheezing or rales. No increased work of breathing, no conversational dyspnea, no accessory muscle use, no nasal flaring. No respiratory distress noted Heart: Regular rate and rhythm, No murmurs, No rubs and No gallops, 2+ distal pulses (radial, femoral, posterior tibial) in all extremities Abdomen: Soft, there is no tenderness, rigidity, rebound or guarding, no obvious peritoneal signs, no palpable pulsatile abdominal masses, no auscultated abdominal bruit : No CVAT Extremities: No edema Neuro: No new focal neurological deficits, cranial nerves II through XII intact, 5/5 strength in all present extremities. Intact sensation to light touch in all present extremities, 2+ reflexes bilateral patella tendons. Skin: No rash or lesions noted Rectal: Performed patient transport orderly in room shows dark stool. Hemoccult sent. MEDICAL DECISION MAKING: Chief Complaint: GI bleed External records reviewed: Reviewed medications. No blood thinners noted. Last ejection fraction 25%. Reviewed prior GI evaluation. Reviewed EGD from 12/28/[address] Ross which showed a normal esophagus, single bleeding angiodysplastic lesion in the stomach treated with heater probe. Reviewed recent GI outpatient visit. Factors affecting care: ESRD, CAD, CHF, gastric ulcer, gastric AVMs, hypertension, iron deficiency anemia Social determinants of health: none History obtained from others: none Consults: Gastroenterology (Dr. Ross), internal medicine (Dr. Reddy) [facility] Narrative: The patient was initially hemodynamically stable, afebrile and nontoxic-appearing. Exam obvious cardiopulmonary abnormalities. Rectal exam as above. I considered the following differential diagnosis: GI bleed, anemia I obtained a broad lab and imaging workup to further elucidate etiology of the patient's complaints. ALL IMAGES (IF OBTAINED) HAVE BEEN PERSONALLY REVIEWED AND INTERPRETED BY MYSELF. EKG with sinus rhythm, first-degree AV block prolonged HI interval 252, prolonged QTc interval, left ax deviation, occasional PVCs, no obvious STEMI, similar morphology compared to prior EKG from January 08, 2025 CBC with worsening anemia, no thrombocytopenia, BMP without evidence of significant electrolyte abnormalities, no anion gap, no acute kidney injury. Without significant electrolyte abnormalities, noted ESRD Discussed with the GI doctor who agrees to see the patient as an inpatient. Will admit for GI evaluation and possible urgent endoscopy/colonoscopy. Discussed with internal medicine physician agree to admit the patient The patient and/or family, caregivers express understanding. The patient and/or family, caregivers agrees with the plan. Shared decision making: I will have a discussion with the patient and or visitors regarding risk/benefits of further testing or admission. They will be made aware of of the risk/benefits inherent in this decision they will be given the opportunity to voice understanding. Total critical care time today provided was at least 0 minutes. This excludes separately billable procedures. Critical care time (if documented) is secondary to the patient having high probability of clinically significant/life threatening deterioration in the patient's condition which required my urgent intervention. Impression: 1. Bright red blood per rectum 2. History of ESRD Dispo: Admit to [facility] This note was generated with [employer] dictation software. It may contain incorrect words, spelling, and punctuation that were not noted in review of the chart prior to signing. Lab Data Labs: Laboratory Results - last 24 hr 01/19/25 17:25 WBC 6.8 RBC 2.79 L Hgb 9.2 L Hct 28.4 L MCV 101.8 H MCH 33.0 H MCHC 32.4 RDW Std Deviation 56.8 H RDW Coeff of Brynn 15.2 H Plt Count 192 MPV 11.2 Sodium 137 Potassium 3.6 Chloride 92 L Carbon Dioxide 29.7 Anion Gap 15 BUN 26 H Creatinine 3.85 H Est GFR (MDRD) Non-Af 16 L BUN/Creatinine Ratio 6.6 L Glucose 113 H Calcium 8.5 Discharge Plan Disposition Disposition: Acute Care Hospital [facility] Discharge Date/Time: 01/19/25 20:13
--- NOTE | 2025-01-19 17:46 | EKG12_ITS ---
Test Reason : BRADYCARDIA Blood Pressure : */* mmHG Vent. Rate : 75 BPM Atrial Rate : 75 BPM P-R Int : 252 ms QRS Dur : 166 ms QT Int : 482 ms P-R-T Axes : 53 -66 96 degrees QTcB Int : 538 ms Sinus rhythm with 1st degree A-V block with frequent Premature ventricular complexes Left axis deviation Left bundle branch block Abnormal ECG Confirmed by DEV NDIAYE, JACQUELINE ([id number]), film and video editor BHAVNA LOOMIS ([id number]) on 01/23/2025 10:50:32 AM Referred By: Confirmed By: JACQUELINE MÉNDEZ MD
[2025-01-19 17:58] LABS: Hematocrit 28.4 % (40-54); Hemoglobin 9.2 g/dL (13.0-16.5); Mean Corp Hgb Conc 32.4 g/dL (32-36); Mean Corpuscular Volume 101.8 fL (80-94); Mean Platelet Vol. 11.2 fl (6.2-12.0); Platelet Count 192 K/mm3 (150-450); RBC Distribution Width CV 15.2 % (11.6-14.6); RBC Distribution Width SD 56.8 fl (35.1-43.9); Red Blood Count 2.79 M/mm3 (4.6-6.2); White Blood Count 6.8 K/mm3 (4.4-11.0)
[2025-01-19 18:24] LABS: Anion Gap 15 (5-15); BUN 26 mg/dL (4-19); BUN/Creat Ratio 6.6 RATIO (10-20); Calcium,Total 8.5 mg/dL (7.6-11.0); Carbon Dioxide 29.7 mmol/L (21.0-32.0); Chloride 92 mmol/L (98-108); Creatinine, Serum 3.85 mg/dL (0.70-1.20); EST Glomerular Filtration Rate 16 (>60); Glucose 113 mg/dL (70-99); Potassium 3.6 mmol/L (3.3-5.1); Sodium Level 137 mmol/L (133-145)
[2025-01-19 19:09] VITALS: BP 141/62; PULSE 74; RESP 14
--- NOTE | 2025-01-19 19:25 | PCM.HP.STD ---
[facility] - General General Date of Admission: 01/19/25 Date of Service: 01/19/25 Chief Complaint: GI bleeding HPI Narrative BINDU DUMONT, is a 69 M with past medical history of recent ischemic stroke, with right-sided carotid stenosis essential hypertension; on losartan and carvedilol, overweight with BMI of 27.4 this admission, ESRD; on HD () with last dialysis yesterday, chronic anemia; primarily due to renal disease with superimposed BERTRAND on oral ferrous sulfate and epoetin beta, history of bicuspid aortic valve with insufficiency; s/p TAVR (04/2024), history of CAD; with patient in need of stent when he can tolerate aspirin, chronic systolic CHF; LVEF ~25% (09/2024), RA; with associated rheumatoid vasculitis and aortitis, history of subclavian aneurysm (~2014); s/p subclavian graft, history of RUE DVT due to aneurysm (~2014), hepatitis C positive; with genotype 1b without cirrhosis PCR RNA quant was 1 million with patient having completed Epclusa therapy x 12 weeks with subsequent PCR RNA quant continuing to be normal, history of diverticulitis, history of colonoscopy with polypectomy (2023), history of umbilical hernia, history of lower extremity lymphedema, chronic tobacco abuse, history of migraine headache, GERD with history of PUD causing for peptic ulcers cauterized in the past; on pantoprazole, OA; with history of knee surgery and chronic back pain who presents to the ED with concerns regarding 1 episode of bright red blood per rectum, mixed with stools He was recently admitted from December 27 to 2024 for concerns regarding upper GI bleeding and was found to have 1 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 At the time he was also planned for colonoscopy but the procedure could not be completed due to bad bowel preparation. Since his discharge he was readmitted for slurred speech and right facial droop and was found to have an ischemic stroke. Today at the time of presentation in the ED, his hemoglobin was 9.2 down from 10.7 on 01/08/2025, and WBC of 6.8, platelet of 192, BUN of 26, with a creatinine of 3.8, his blood pressure was 141/62, pulse 74, respiratory rate 14. He is being admitted for further management of his upper GI bleeding. [facility] Medical History Acute anemia Black stool History of transcatheter aortic valve replacement (TAVR) Wears glasses History of steroid therapy History of renal disease Low iron Rheumatoid arthritis Back pain Migraine headache Dietary restriction History of diverticulitis History of ulceration Shortness of breath on exertion Lymphedema History of echocardiogram Cardiology follow-up encounter Hypertension Chronic renal failure Anemia DVT (deep venous thrombosis) End stage renal disease on dialysis Secondary hyperparathyroidism Generalized weakness Acute on chronic anemia Chronic anemia Acute upper GI bleed History of end stage renal disease History of renal dialysis Dialysis patient Hepatitis Smoker Bursitis Problem with dialysis access Rectal bleeding Subclavian aneurysm Kidney failure due to vascular disorder Cardiac disease Rheumatoid vasculitis Rheumatoid aortitis Home Medications ?Medication ?Instructions ?Recorded ?Last Taken ?Type vitamin B complex-vitamin C-folic 1 tab PO DAILY RENAL HEALTH 12/12/23 01/18/25 History acid 0.8 mg tablet (Nephro-Christiano) cyanocobalamin (vitamin B-12) 1,000 mcg PO DAILY supplement 01/12/24 01/19/25 History 1,000 mcg tablet (Vitamin B-12) acetaminophen 500 mg tablet 1,000 mg PO BID PAIN 12/02/24 01/19/25 History carvedilol 12.5 mg tablet 12.5 mg PO BID High bp 12/02/24 01/18/25 History coenzyme Q10 200 mg capsule (Co 200 mg PO DAILY suppliment 12/02/24 01/19/25 History Q-10) epoetin beta, methoxy peg See Rx Instructions subcut 12/02/24 01/05/25 History .COMPLEX PRN low blood counts sevelamer carbonate 800 mg tablet 800 mg PO TIDCM phosphate binder 12/27/24 01/19/25 History ascorbic acid (vitamin C) 500 mg 500 mg PO BID suppliment #60 tabs 12/29/24 01/19/25 Rx tablet ferrous sulfate 325 mg (65 mg 325 mg PO QODAY anemia #30 tabs 12/29/24 01/17/25 Rx iron) tablet pantoprazole 40 mg tablet,delayed 40 mg PO BID stomach #60 tabs 12/29/24 01/19/25 Rx release (Protonix) cholecalciferol (vitamin D3) 10 10 mcg PO 3XW suppliment 01/06/25 01/19/25 History mcg (400 unit) capsule sensitar 90 mg PO 3XW 01/06/25 01/19/25 History losartan 25 mg tablet 25 mg PO BID heart 01/08/25 Unknown History atorvastatin 40 mg tablet 40 mg PO QHS #90 tabs 01/16/25 01/18/25 Rx aspirin 81 mg chewable tablet 81 mg PO DAILY 01/19/25 01/19/25 History Allergy/AdvReac Type Severity Reaction Status Date / Time No Known Allergies Allergy Verified 01/19/25 17:12 Family History Other Cancer Diabetes Heart disease Surgical History History of cardiac catheterization Hx of colonoscopy with polypectomy History of esophagogastroduodenoscopy (EGD) Hx of arteriovenostomy for renal dialysis (~12/2019) Status post insertion of dialysis catheter (~11/2019) History of umbilical hernia s/p subclavian graft S/P knee surgery History of bicuspid aortic valve Social History household members: spouse housing: house Smoking Status: Current some day smoker tobacco type: cigarettes alcohol intake: never substance use type: does not use caffeine: Yes Type: coffee Number of servings: 2 ROS Review of Systems ROS Unobtainable: Denies due to encephalopathy, due to endotracheal tube, due to mental condition, due to mental status or other Constitutional Constitutional: Denies anorexia, change in weight, chills, fatigue, fever(s), malaise, night sweats, weakness or other Eyes Eyes: Denies blurry vision, change in eye color, change in vision, discharge from eye(s), double vision, erythema, eye pain, loss of vision or other ENT HEENT: Denies abnormal hearing, dysphagia, ear pain, epistaxis, headache(s), hearing loss, nasal congestion, nasal discharge, post nasal drip, sinus pressure, sore throat or other Cardiovascular Cardiovascular: Denies chest pain, claudication, dyspnea on exertion, edema, lightheadedness, orthopnea, palpitations, paroxysmal nocturnal dyspnea, rapid heart rate, syncope or other Respiratory/Chest Respiratory/Chest: Denies cough, dyspnea, excessive phlegm production, hemoptysis, productive cough, shortness of breath at rest, shortness of breath with exertion, wheezing or other Gastrointestinal Gastrointestinal: Reports hematochezia Genitourinary Genitourinary: Denies burning urination, difficulty urinating, dysuria, hematuria, nocturia, urinary frequency, urinary hesitancy, urinary incontinence, urinary urgency or other Musculoskeletal Musculoskeletal: Denies arthralgias, back pain, joint pain, joint stiffness, joint swelling, myalgias, neck pain or other Neurologic Neurologic: Denies abnormal gait, abnormal speech, confusion, disequilibrium, dizziness, focal weakness, headache(s), numbness, paresthesias, seizure-like activity, seizures, syncope, tingling, tremor(s) or other Psychiatric Psychiatric: Denies anxiety, depression, homicidal ideation, suicidal ideation or other Endocrine Endocrinology: Denies change in body appearance, cold intolerance, excessive sweating, heat intolerance, polydipsia, polyuria or other Hematologic/Lymphatic Hematologic/Lymphatic: Denies anemia, easy bleeding, easy bruising, lymphadenopathy or other Allergic/Immunologic Allergic/Immunologic: Denies rhinitis, hives, eczemia, asthma or other Vital Signs Vital Signs Vital Signs: 01/19/25 17:10 01/19/25 19:09 Temperature 97.5 F L Temperature Source Temporal Pulse Rate 91 74 Respiratory Rate 16 14 Blood Pressure 135/60 H 141/62 H Blood Pressure Mean 85 88 Pulse Ox 96 Oxygen Delivery Method Room Air Physical Exam Const alert and oriented x3 HEENT normocephalic and head/scalp atraumatic Eyes PERRL Neck no lymphadenopathy Neck Narrative: Right carotid bruit present Resp normal respiratory effort and no retractions Cardio regular rate and regular rhythm Cardio Narrative: Ejection systolic murmur with mechanical character GI normal to inspection, nondistended, normoactive bowel sounds Extremity normal to inspection Neuro oriented x3 and CN's II-XII intact bilaterally Psych affect normal Results Medical Records Data Attestation: I reviewed the patient's medical records Lab / Micro Data Attestation: I reviewed the patient's lab results. 01/19/25 17:25 01/19/25 17:25 Labs: Laboratory Results - last 24 hr 01/19/25 17:25: WBC 6.8, RBC 2.79 L, Hgb 9.2 L, Hct 28.4 L, MCV 101.8 H, MCH 33.0 H, MCHC 32.4, RDW Std Deviation 56.8 H, RDW Coeff of Brynn 15.2 H, Plt Count 192, MPV 11.2, Sodium 137, Potassium 3.6, Chloride 92 L, Carbon Dioxide 29.7, Anion Gap 15, BUN 26 H, Creatinine 3.85 H, Est GFR (MDRD) Non-Af 16 L, BUN/Creatinine Ratio 6.6 L, Glucose 113 H, Calcium 8.5 Micro: Microbiology 01/19/25 17:15 Stool Stool Occult Blood (LAMONTE) - Final Occult Blood Positive Assessment & Plan Assessment/Plan (1) Carotid stenosis, right: PLAN: Plan 69-year-old male with past medical history of coronary artery disease, aortic stenosis s/p TAVR, R ICA stenosis, ischemic stroke, peptic ulcer disease, stomach AVMs, ESRD on hemodialysis is admitted for another episode of upper GI bleeding. Patient's history is extremely complicated as he is having ischemic events as well as bleeding complications. The reason for his upper GI bleeding is likely related to AVMs, will need the decision for push enteroscopy plus or minus colonoscopy up to gastroenterology. Previously had 1 bad bowel preparation and will require prolonged preparation this time for his colonoscopy. # GI bleeding #Stomach AVM #Incomplete colonoscopy -Gastroenterology consult -Will start him on a clear liquid diet for 2 days followed by bowel preparation tomorrow for colonoscopy possibly over the weekend -CBC twice daily -N.p.o. after midnight if gastroenterology decides to do upper endoscopy/push enteroscopy -Maintain to IV lines at all times -IV Protonix 40 mg twice daily # L MCA stroke #R ICA stenosis -Continue aspirin daily despite the upper GI bleed given the risk-benefit of recurrent strokes -Patient will require further revascularization procedures after the GI bleeding is controlled # CAD - with patient in need of stent when he can tolerate DAPT # ESRD; on HD since 2019 () - Nephrology should be consulted if patient is still in the hospital for dialysis on Thursday # Chronic Tobacco Abuse in vasculopathic dialysis patient # Essential Hypertension; on losartan and carvedilol -Holding carvedilol for now given the bleeding # Acute on chronic anemia -Close monitoring, component of anemia of chronic disease present # History of bicuspid aortic valve with insufficiency; s/p TAVR (04/2024) - Noted. # Chronic systolic CHF; LVEF ~25% (09/2024) - Stable with no current evidence of volume overload. # RA; with associated rheumatoid vasculitis and aortitis - Stable. # History of subclavian aneurysm (~2014); s/p subclavian graft - Noted. # History of RUE DVT due to aneurysm (~2014) - Noted with no evidence of recurrence at this time. # Hepatitis C positive; with genotype 1b without cirrhosis PCR RNA quant was 1 million with patient having completed Epclusa therapy x 12 weeks with subsequent PCR RNA quant continuing to be normal followed by Dr. Ross of gastroenterology - Noted. # History of diverticulitis - Noted. # History of umbilical hernia - Noted. # History of lower extremity lymphedema - Resolved. # History of migraine headache - Previously resolved. DVT prophylaxis - SCD's only as he is having GI hemorrhage
[2025-01-19 20:02] VITALS: BP 142/77; PULSE 74; RESP 16; TEMP 36.4; O2SAT 95
[2025-01-19 20:27] VITALS: BMI 28.2
[2025-01-19 20:43] VITALS: BP 140/90; PULSE 78; RESP 16; TEMP 36.7; O2SAT 100
[2025-01-19 22:25] VITALS: BP 133/68; PULSE 68; RESP 16; TEMP 36.9; O2SAT 99
[2025-01-19] MEDS: 0.9% Saline Lock 10 ML Syringe IV (22:28)
[2025-01-19] MEDS: Pantoprazole Sodium 40 MG in 0.9% Normal Saline (100mL MB+) 100 ML 330 MG IV (22:30)
[2025-01-19] MEDS: Acetaminophen 500 MG Tablet 1000 MG PO (22:31)
[2025-01-19] MEDS: Ascorbic Acid 500 MG Tablet PO (22:31)
[2025-01-19] MEDS: Atorvastatin Calcium 40 MG Tablet PO (22:31)
[2025-01-19] MEDS: Losartan Potassium 25 MG Tablet PO (22:31)
[2025-01-20] VITALS (10 sets, daily range): BP systolic 112–142; BP diastolic 65–93; PULSE 75–90; RESP 16–18; TEMP 36.7–37.1; O2SAT 97–100
[2025-01-20 06:35] LABS: Absolute Lymphocyte Count 0.95 X10^3/uL (0.83-4.51); Absolute Neutrophil Count 3.6 X10^3/uL (2.0-7.7); Basophil# 0.04 X10^3/uL; Basophil% 0.7 % (0-1); Eosinophil# 0.09 X10^3/uL; Eosinophils% 1.7 % (0-5); Hematocrit 25.3 % (40-54); Hemoglobin 8.1 g/dL (13.0-16.5); Lymphocyte # 0.95 X10^3/ul (0.83-4.51); Lymphocyte % 17.5 % (19-41); Mean Corpuscular Hgb 32.7 pg (27.0-32.0); Mean Platelet Vol. 10.8 fl (6.2-12.0); Monocyte# 0.75 X10^3/uL; Monocyte% 13.8 % (0-10); NRBC Flagged by Analyzer 0 % (0-5); Neutrophil # 3.59 X10^3/uL (2.7-7.7); Neutrophil % 65.9 % (47-70); Platelet Count 158 K/mm3 (150-450); RBC Distribution Width CV 15.4 % (11.6-14.6); RBC Distribution Width SD 57.2 fl (35.1-43.9); Red Blood Count 2.48 M/mm3 (4.6-6.2); White Blood Count 5.4 K/mm3 (4.4-11.0)
[2025-01-20 06:49] LABS: International Normalized Ratio 1.2
[2025-01-20 09:12] LABS: ALB/GLOB Ratio 1.4 RATIO (0.9-2.4); AST(SGOT) 20 U/L (<=37); Alanine Aminotransfer ALT/SGPT 7 U/L (<=46); Albumin, Serum 3.6 g/dL (3.4-4.8); Alkaline Phosphatase 38 U/L (40-129); Anion Gap 15 (5-15); BUN 35 mg/dL (4-19); BUN/Creat Ratio 7.2 RATIO (10-20); Bilirubin, Direct 0.14 mg/dL (0.00-0.30); Calcium,Total 8.3 mg/dL (7.6-11.0); Chloride 93 mmol/L (98-108); Creatinine, Serum 4.88 mg/dL (0.70-1.20); EST Glomerular Filtration Rate 12 (>60); Estimated Creatinine Clearance 16.06 ml/min (50-250); Globulin 2.6 g/dL (2.2-4.2); Glucose 79 mg/dL (70-99); Magnesium 2.4 mg/dL (1.5-2.2); Phosphorus 4.8 mg/dL (2.7-4.5); Potassium 3.8 mmol/L (3.3-5.1); Protein, Total 6.2 g/dL (5.9-8.4); Sodium Level 136 mmol/L (133-145); Total Bilirubin 0.32 mg/dL (0.00-1.30)
[2025-01-20] MEDS: Bisacodyl 5 MG Tablet 20 MG PO (09:44)
[2025-01-20] MEDS: Pantoprazole Sodium 40 MG in 0.9% Normal Saline (100mL MB+) 100 ML 330 MG IV ×2 (09:50→22:01)
--- NOTE | 2025-01-20 11:12 | PN_ITS ---
Subjective Subjective Patient seen and examined. His was by his bedside. He denied any dark stools or bleeding per rectum overnight. He had no active complaints. Review of systems otherwise negative. He was due for EGD today. However parents noticed gastroenterology has decided to give him the prep today as well so he can have the upper and lower scope likely later today. He has remained hemodynamically stable. He does look pale and his hemoglobin is down to 8.1 from 9.2 yesterday. Objective Data Objective Data Vital Signs: Vital Signs Temp Pulse Resp BP Pulse Ox O2 Del Method 98.6 F 82 18 124/81 H 97 Room Air 01/20/25 05:13 01/20/25 05:13 01/20/25 05:13 01/20/25 05:13 01/20/25 05:13 01/20/25 09:11 Oxygen Delivery Method Room Air Weight: 196 lb 10.437 oz Body Mass Index (BMI) 28.2 Intake & Output: Intake and Output for Last 24 Hours 01/18/25 01/19/25 01/20/25 23:59 23:59 23:59 Intake Total 110 / 110 Balance 110 / 110 Lab / Micro Data 01/20/25 06:18 01/20/25 06:18 Labs: Laboratory Results - last 24 hr 01/19/25 17:25: WBC 6.8, RBC 2.79 L, Hgb 9.2 L, Hct 28.4 L, MCV 101.8 H, MCH 33.0 H, MCHC 32.4, RDW Std Deviation 56.8 H, RDW Coeff of Brynn 15.2 H, Plt Count 192, MPV 11.2, Sodium 137, Potassium 3.6, Chloride 92 L, Carbon Dioxide 29.7, Anion Gap 15, BUN 26 H, Creatinine 3.85 H, Est GFR (MDRD) Non-Af 16 L, B UN/Creatinine Ratio 6.6 L, Glucose 113 H, Calcium 8.5 01/20/25 06:18: WBC 5.4, RBC 2.48 L, Hgb 8.1 L, Hct 25.3 L, MCV 102.0 H, MCH 32.7 H, MCHC 32.0, RDW Std Deviation 57.2 H, RDW Coeff of Brynn 15.4 H, Plt Count 158, MPV 10.8, Immature Gran % (Auto) 0.400, Neut % (Auto) 65.9, Lymph % (Auto) 17.5 L, [place] % (Auto) 13.8 H, Eos % (Auto) 1.7, Baso % (Auto) 0.7, Absolute Neuts (auto) 3.6, Absolute Lymphs (auto) 0.95, Nucleated RBC % 0, PT 15.0 H, INR 1.2, Sodium 136, Potassium 3.8, Chloride 93 L, Carbon Dioxide 28.0, Anion Gap 15, BUN 35 H, Creatinine 4.88 H, Estim Creat Clear Calc 16.06 L, Est GFR (MDRD) Non-Af 12 L, BUN/Creatinine Ratio 7.2 L, Glucose 79, Calcium 8.3, Phosphorus 4.8 H, Magnesium 2.4 H, Total Bilirubin 0.32, Direct Bilirubin 0.14, AST 20, ALT 7, Alkaline Phosphatase 38 L, Total Protein 6.2, Albumin 3.6, Globulin 2.6, Albumin/Globulin Ratio 1.4, TSH 4.270 H Micro: Microbiology 01/19/25 17:15 Stool Stool Occult Blood (LAMONTE) - Final Occult Blood Positive Physical Exam Const alert, oriented x3 and no apparent distress Constitutional Narrative: skin looks visibly pale General Appearance: cooperative HEENT normocephalic, head/scalp atraumatic, moist oral mucous membranes, oropharynx normal and gingiva normal Eyes PERRL and EOMs intact bilaterally Neck no lymphadenopathy, supple and no JVD Lymph Lymphatic: no lymphadenopathy noted and no lymphedema noted Resp normal respiratory effort, normal air movement and clear to auscultation bilaterally Cardio regular rate, regular rhythm, S1 normal heart sound, S2 normal heart sound and no murmurs GI normal to inspection, nondistended, normoactive bowel sounds, soft to palpation, non-tender and non-distended Extremity normal capillary refill, no clubbing, cyanosis or edema and no calf tenderness General Extremity: no tenderness to palpation of joints or extremities Skin General Skin Exam: no breakdown Neuro CN's II-XII intact bilaterally, no focal motor deficits and no sensory deficits noted Motor Exam: strength 5/5 throughout and general weakness Psych thought process normal, cooperative and affect normal Appearance: appropriate Assessment & Plan Assessment/Plan (1) Rectal bleeding: PLAN: Plan #Acute on chronic anemia due to lower GI bleed * Hb is 8.1. Was 9.2 on admission. Does have chronic anemia * Gastroenterology on board. He said he has not had any more rectal bleeding without any melena stools. * For EGD and colonoscopy today. On IV pantoprazole * Transfuse to keep hemoglobin greater than 7. * #ESRD * on hemodialysis. Nephrology consulted * on cinacalcet and renvela * #History of stroke * was recently diagnosed with a stroke. * On aspirin. This was continued in light of patient's recent stroke. * #History of peptic ulcer disease * on IV pantoprazole * #Hypertension: on losartan and carvedilol #History of bicuspid aortic valve: S/p TAVR in April 2024. 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 Stable. #History of hepatitis C: Follow-up with gastroenterology on outpatient basis #HFrEF: has known EF of 25%. NOT in exacerbation. Breathing treatment with bronchodilators. DVT prophylaxis: SCDs. Charges/Coding Visit Charges Inpatient E&M: 67989 Subs Hosp L2
[2025-01-20] MEDS: Electrolyte Solution/Peg's 4000 ML PO (11:34)
--- NOTE | 2025-01-20 13:11 | CASEMGMT ---
Addendum entered by Alanna Durán 01/20/25 15:22: REBECCA REDMOND into pt room, pt being taken down for scope at this time. Original Note: REBECCA REDMOND Readmission Note Previous Admission: 01/08/25-01/09/25 Diagnosis: acute ischemia, R CVA DC Disposition: Home with OP ST Current Admission: Admitted 01/19/25 Current Diagnosis: GI bleeding Pt was dc'd with ST rx as an outpt on prior admission d/t CVA. Pt also had been hospitalized prior to that admission for GI bleeding. Pt returns to ER with complaints of blood per rectum. Pt to have EGD this date. REBECCA REDMOND into pt room and pt is off of the floor at this time. Pt was to f/u with PCP upon dc from last hospital stay, see Dr. Garcia in 2 wks and in 1wk. REBECCA REDMOND to confirm if these appts were made when pt returns to floor and assess any other homegoing needs. Per chart, pt has dialysis on /. DC Plan: TBD
--- NOTE | 2025-01-20 15:42 | PN_ITS ---
Progress Note 69-year-old male presents concern for GI bleed. Notes this afternoon he had a large amount of bright red blood per rectum filling the toilet. He is not currently bleeding now. Denies symptoms such as lightheadedness, dizziness, fatigue, chest pain or shortness of breath. His hemoglobin was 10.7 when he was discharged from the hospital after his previous upper GI bleed and currently is down to 9. He took a prep last night and today and has been n.p.o. Physical Exam Const alert, oriented x3 and no apparent distress Constitutional Narrative: skin looks visibly pale General Appearance: cooperative HEENT normocephalic, head/scalp atraumatic, moist oral mucous membranes, oropharynx normal and gingiva normal Eyes PERRL and EOMs intact bilaterally Neck no lymphadenopathy, supple and no JVD Lymph Lymphatic: no lymphadenopathy noted and no lymphedema noted Resp normal respiratory effort, normal air movement and clear to auscultation bilaterally Cardio regular rate, regular rhythm, S1 normal heart sound, S2 normal heart sound and no murmurs GI normal to inspection, nondistended, normoactive bowel sounds, soft to palpation, non-tender and non-distended Extremity normal capillary refill, no clubbing, cyanosis or edema and no calf tenderness General Extremity: no tenderness to palpation of joints or extremities Skin General Skin Exam: no breakdown Neuro CN's II-XII intact bilaterally, no focal motor deficits and no sensory deficits noted Motor Exam: strength 5/5 throughout and general weakness Psych thought process normal, cooperative and affect normal Appearance: appropriate Assessment & Plan Assessment/Plan (1) Carotid stenosis, right: PLAN: Plan 69-year-old male with past medical history of coronary artery disease, aortic stenosis s/p TAVR, R ICA stenosis, ischemic stroke, peptic ulcer disease, stomach AVMs, ESRD on hemodialysis is admitted for another episode of upper GI bleeding. Patient's history is extremely complicated as he is having ischemic events as well as bleeding complications. The reason for his upper GI bleeding is likely related to AVMs, will need the decision for push enteroscopy plus colonoscopy. He was explained alternatives, risk and benefits include not withstanding bleeding, infection, sepsis, perforation, need for emergent urgent . He will have an ASA of 3. Visit Charges Inpatient E&M: 61854 [facility] Hosp L3
--- NOTE | 2025-01-20 16:06 | PCM.CONS.R ---
Assessment & Plan Assessment/Plan (1) ESRD (end stage renal disease) on dialysis: PLAN: On hemodialysis Thursday, , Thursday schedule. Last dialysis was yesterday. Had complete session. Will plan for dialysis tomorrow. Potassium is okay today. Asymptomatic. No signs of volume overload. Anemia. History of ESRD. Ongoing GI bleed as well. Workup as per gastroenterology. He does get HERMINIO with dialysis. Recent history of stroke. We discussed about FDA package insert explaining the risk of stroke associated with HERMINIO. However he has ongoing GI bleed and is on fairly high dose of HERMINIO. Without HERMINIO I think his hemoglobin will drop drastically and he will need blood transfusions. He is also in the process of trying to get a kidney transplant and blood transfusions will increase his risk of HLA antibodies. For now we are continuing with the HERMINIO. Explained to the patient and . HPI Consult Data Date of Consult: 01/20/25 HPI Narrative Reason for Consultation: ESRD HPI Narrative: BINDU DUMONT, is a 69 M who presents To the hospital with GI bleed. Nephrology on consultation in view of ESRD. On hemodialysis Thursday, , Thursday schedule. Last dialysis was yesterday. Recently was admitted here with a stroke. Issues with ongoing GI bleed for the last few weeks. Had multiple endoscopy, colonoscopy. [facility], [facility] Medical History Acute anemia Black stool History of transcatheter aortic valve replacement (TAVR) Wears glasses History of steroid therapy History of renal disease Low iron Rheumatoid arthritis Back pain Migraine headache Dietary restriction History of diverticulitis History of ulceration Shortness of breath on exertion Lymphedema History of echocardiogram Cardiology follow-up encounter Hypertension Chronic renal failure Anemia DVT (deep venous thrombosis) End stage renal disease on dialysis Secondary hyperparathyroidism Generalized weakness Acute on chronic anemia Chronic anemia Acute upper GI bleed History of end stage renal disease History of renal dialysis Dialysis patient Hepatitis Smoker Bursitis Problem with dialysis access Rectal bleeding Subclavian aneurysm Kidney failure due to vascular disorder Cardiac disease Rheumatoid vasculitis Rheumatoid aortitis Home Medications ?Medication ?Instructions ?Recorded ?Last Taken ?Type vitamin B complex-vitamin C-folic 1 tab PO DAILY RENAL HEALTH 12/12/23 01/18/25 History acid 0.8 mg tablet (Nephro-Christiano) cyanocobalamin (vitamin B-12) 1,000 mcg PO DAILY supplement 01/12/24 01/19/25 History 1,000 mcg tablet (Vitamin B-12) acetaminophen 500 mg tablet 1,000 mg PO BID PAIN 12/02/24 01/19/25 History carvedilol 12.5 mg tablet 12.5 mg PO BID High bp 12/02/24 01/18/25 History coenzyme Q10 200 mg capsule (Co 200 mg PO DAILY suppliment 12/02/24 01/19/25 History Q-10) epoetin beta, methoxy peg See Rx Instructions subcut 12/02/24 01/05/25 History .COMPLEX PRN low blood counts sevelamer carbonate 800 mg tablet 800 mg PO TIDCM phosphate binder 12/27/24 01/19/25 History ascorbic acid (vitamin C) 500 mg 500 mg PO BID suppliment #60 tabs 12/29/24 01/19/25 Rx tablet ferrous sulfate 325 mg (65 mg 325 mg PO QODAY anemia #30 tabs 12/29/24 01/17/25 Rx iron) tablet pantoprazole 40 mg tablet,delayed 40 mg PO BID stomach #60 tabs 12/29/24 01/19/25 Rx release (Protonix) cholecalciferol (vitamin D3) 10 10 mcg PO 3XW suppliment 01/06/25 01/19/25 History mcg (400 unit) capsule sensitar 90 mg PO 3XW 01/06/25 01/19/25 History losartan 25 mg tablet 25 mg PO BID heart 01/08/25 Unknown History atorvastatin 40 mg tablet 40 mg PO QHS #90 tabs 01/16/25 01/18/25 Rx aspirin 81 mg chewable tablet 81 mg PO DAILY 01/19/25 01/19/25 History Allergy/AdvReac Type Severity Reaction Status Date / Time No Known Allergies Allergy Verified 01/19/25 17:12 Family History Other Cancer Diabetes Heart disease Surgical History History of cardiac catheterization Hx of colonoscopy with polypectomy History of esophagogastroduodenoscopy (EGD) Hx of arteriovenostomy for renal dialysis (~12/2019) Status post insertion of dialysis catheter (~11/2019) History of umbilical hernia s/p subclavian graft S/P knee surgery History of bicuspid aortic valve Social History household members: spouse housing: house Smoking Status: Light Smoker (<10/day) alcohol intake: never substance use type: does not use caffeine: Yes Type: coffee Number of servings: 2 ROS ROS Narrative Negative except above Physical Exam Narrative Alert awake oriented x 3 no obvious distress no pallor no icterus no JVD s1s2 no murmurs lungs clear Lab / Micro Data 01/20/25 06:18 01/20/25 06:18 Labs: Laboratory Results - last 24 hr 01/19/25 17:25: WBC 6.8, RBC 2.79 L, Hgb 9.2 L, Hct 28.4 L, MCV 101.8 H, MCH 33.0 H, MCHC 32.4, RDW Std Deviation 56.8 H, RDW Coeff of Brynn 15.2 H, Plt Count 192, MPV 11.2, Sodium 137, Potassium 3.6, Chloride 92 L, Carbon Dioxide 29.7, Anion Gap 15, BUN 26 H, Creatinine 3.85 H, Est GFR (MDRD) Non-Af 16 L, BUN/Creatinine Ratio 6.6 L, Glucose 113 H, Calcium 8.5 01/20/25 06:18: WBC 5.4, RBC 2.48 L, Hgb 8.1 L, Hct 25.3 L, MCV 102.0 H, MCH 32.7 H, MCHC 32.0, RDW Std Deviation 57.2 H, RDW Coeff of Brynn 15.4 H, Plt Count 158, MPV 10.8, Immature Gran % (Auto) 0.400, Neut % (Auto) 65.9, Lymph % (Auto) 17.5 L, [place] % (Auto) 13.8 H, Eos % (Auto) 1.7, Baso % (Auto) 0.7, Absolute Neuts (auto) 3.6, Absolute Lymphs (auto) 0.95, Nucleated RBC % 0, PT 15.0 H, INR 1.2, Sodium 136, Potassium 3.8, Chloride 93 L, Carbon Dioxide 28.0, Anion Gap 15, BUN 35 H, Creatinine 4.88 H, Estim Creat Clear Calc 16.06 L, Est GFR (MDRD) Non-Af 12 L, BUN/Creatinine Ratio 7.2 L, Glucose 79, Calcium 8.3, Phosphorus 4.8 H, Magnesium 2.4 H, Total Bilirubin 0.32, Direct Bilirubin 0.14, AST 20, ALT 7, Alkaline Phosphatase 38 L, Total Protein 6.2, Albumin 3.6, Globulin 2.6, Albumin/Globulin Ratio 1.4, TSH 4.270 H Micro: Microbiology 01/19/25 17:15 Stool Stool Occult Blood (LAMONTE) - Final Occult Blood Positive
--- NOTE | 2025-01-20 16:07 | PCM.PRE.AN2 ---
ASA Classification* ASA Classification ASA Classification: 4 and E Assessment & Plan Anesthesia* Anesthesia Assessment Anesthesia Assessment: Discussed sedation and/or anesthesia options, risks, benefits, and alternatives with patient/parents/legal guardian/POA. Questions invited. The patient/parents/legal guardian/POA seems to understand and agrees to proceed with anesthesia plan. Reviewed the physical assessment, medical history, allergy history and patient home medications list prior to surgery/procedure/anesthetic and documented any changes. Performed airway and anesthesia risk assessments. Anesthesia Type Anesthesia Type: MAC Anesthesia Focused Assessment* Temperature: 98.0 F Pulse Rate: 75 Blood Pressure: 136/65 Respiratory Rate: 18 Pulse Ox: 98 Airway Assessment Mouth opens: >3 cm Mallampati Score: II Focused Labs Anesthesia Preop lab: CBC WBC 5.4 K/mm3 (4.4-11.0) 01/20/25 06:18 01/20/25 RBC 2.48 M/mm3 (4.6-6.2) L 01/20/25 06:18 01/20/25 Hgb 8.1 g/dL (13.0-16.5) L 01/20/25 06:18 01/20/25 Hct 25.3 % (40-54) L 01/20/25 06:18 01/20/25 Plt Count 158 K/mm3 (150-450) 01/20/25 06:18 01/20/25 CHEMISTRY Potassium 3.8 mmol/L (3.3-5.1) 01/20/25 06:18 01/20/25 Sodium 136 mmol/L (133-145) 01/20/25 06:18 01/20/25 Magnesium 2.4 mg/dL (1.5-2.2) H 01/20/25 06:18 01/20/25 Phosphorus 4.8 mg/dL (2.7-4.5) H 01/20/25 06:18 01/20/25 BUN 35 mg/dL (4-19) H 01/20/25 06:18 01/20/25 Creatinine 4.88 mg/dL (0.70-1.20) H 01/20/25 06:18 01/20/25 Glucose 79 mg/dL (70-99) 01/20/25 06:18 01/20/25 TSH 4.270 uIU/mL (0.300-4.200) H 01/20/25 06:18 01/20/25 COAG PT 15.0 SECONDS (11.7-14.9) H 01/20/25 06:18 01/20/25 Pre-Assessment Diagnosis/Proposed Procedure Planned Operative Procedure(s): EGD, Colonoscopy Anesthesia History 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 When Was Last Pacemaker Check QUESTION #4 FULL TEXT: You/Your Family Experience fever (hyperthermia) with Anesthesia Last Oral Intake Last Oral intake: Last Oral Intake NPO since Meds taken in AM with sips of water? 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 Still some productive cough. STOP Sleep Apnea STOP Sleep Apnea - deputy harbormaster: STOP Sleep Apnea - deputy harbormaster Hx Hypertension Yes 01/19/25 20:27 Hx Sleep Apnea No 01/19/25 20:27 CPAP No 01/19/25 20:27 BIPAP Do you snore loudly (louder Yes 01/19/25 20:27 than talking or can be heard Do you often feel tired/ Yes 01/19/25 20:27 fatigued/ sleepy during daytime? Has anyone observed you stop No 01/19/25 20:27 breathing during sleep? STOP Results Positive 01/19/25 20:27 QUESTION #5 FULL TEXT : Do you snore loudly (louder than talking or can be heard through closed doors)? 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 Specify any problems Hx of Preganancy in last 3 N/A 01/19/25 20:27 Months Nurse Filling Out Transfusion EVIZZO 01/19/25 20:27 & Questions: Date: 01/19/25 01/19/25 20:27 Time: 20:36 01/19/25 20:27 Patient unable to answer at this time (ie. confused, unrespo /Reproduction History /Reproductive History - deputy harbormaster: /Reproductive Hx- deputy harbormaster Hx Now Gestational Age (in weeks): EDC: Hx Hx Para Hx Section SAB No 12/30/24 10:19 Active Medications Active Medications: Current Medications Generic Name Dose Route Start Last Admin Trade Name Freq PRN Reason Stop Dose Admin Acetaminophen 1,000 mg 01/19/25 22:00 01/20/25 10:14 Acetaminophen 500 Mg Tablet PO Not Given BID DEBORAH Ascorbic Acid 500 mg 01/19/25 22:00 01/20/25 10:14 Ascorbic Acid 500 Mg Tablet PO Not Given BID DEBORAH Aspirin 81 mg 01/20/25 08:00 01/20/25 10:14 Aspirin 81 Mg Tab.Chew PO Not Given BREAKFAST [facility] Atorvastatin Calcium 40 mg 01/19/25 22:00 01/19/25 22:31 Atorvastatin Calcium 40 Mg Tablet PO 40 mg QHS DEBORAH Administration Cinacalcet 90 mg 01/21/25 10:00 Cinacalcet Hcl 30 Mg Tablet PO TuThSa@1000 [facility] Ferrous Sulfate 325 mg 01/20/25 12:00 01/20/25 12:37 Ferrous Sulfate 325 Mg Tablet PO Not Given Q48@1200 [facility] Pantoprazole Sodium 40 mg/ 110 mls @ 330 mls/hr 01/19/25 22:00 01/20/25 10:10 Sodium Chloride IV Infused Q12 [facility] Infusion Losartan Potassium 25 mg 01/19/25 22:00 01/20/25 10:14 Losartan Potassium 25 Mg Tablet PO Not Given BID [facility] Protocol Multivit/Ca Carb/B Cmplx/FA/Prenat 1 cap 01/20/25 10:00 01/20/25 10:14 Folic Acid/Vitamin B Comp W-C 1 Capsule PO Not Given DAILY [facility] Sevelamer Carbonate 800 mg 01/20/25 08:00 01/20/25 12:37 Sevelamer Carbonate 800 Mg Tablet PO Not Given TIDCM [facility] Sodium Chloride 10 - 40 ml 01/19/25 20:40 01/19/25 22:28 0.9% Saline Lock 10 Ml Syringe IV 10 ml UD PRN Administration SALINE FLUSH PFSH Medical History Acute anemia Black stool History of transcatheter aortic valve replacement (TAVR) Wears glasses History of steroid therapy History of renal disease Low iron Rheumatoid arthritis Back pain Migraine headache Dietary restriction History of diverticulitis History of ulceration Shortness of breath on exertion Lymphedema History of echocardiogram Cardiology follow-up encounter Hypertension Chronic renal failure Anemia DVT (deep venous thrombosis) End stage renal disease on dialysis Secondary hyperparathyroidism Generalized weakness Acute on chronic anemia Chronic anemia Acute upper GI bleed History of end stage renal disease History of renal dialysis Dialysis patient Hepatitis Smoker Bursitis Problem with dialysis access Rectal bleeding Subclavian aneurysm Kidney failure due to vascular disorder Cardiac disease Rheumatoid vasculitis Rheumatoid aortitis Home Medications ?Medication ?Instructions ?Recorded ?Last Taken ?Type vitamin B complex-vitamin C-folic 1 tab PO DAILY RENAL HEALTH 12/12/23 01/18/25 History acid 0.8 mg tablet (Nephro-Christiano) cyanocobalamin (vitamin B-12) 1,000 mcg PO DAILY supplement 01/12/24 01/19/25 History 1,000 mcg tablet (Vitamin B-12) acetaminophen 500 mg tablet 1,000 mg PO BID PAIN 12/02/24 01/19/25 History carvedilol 12.5 mg tablet 12.5 mg PO BID High bp 12/02/24 01/18/25 History coenzyme Q10 200 mg capsule (Co 200 mg PO DAILY suppliment 12/02/24 01/19/25 History Q-10) epoetin beta, methoxy peg See Rx Instructions subcut 12/02/24 01/05/25 History .COMPLEX PRN low blood counts sevelamer carbonate 800 mg tablet 800 mg PO TIDCM phosphate binder 12/27/24 01/19/25 History ascorbic acid (vitamin C) 500 mg 500 mg PO BID suppliment #60 tabs 12/29/24 01/19/25 Rx tablet ferrous sulfate 325 mg (65 mg 325 mg PO QODAY anemia #30 tabs 12/29/24 01/17/25 Rx iron) tablet pantoprazole 40 mg tablet,delayed 40 mg PO BID stomach #60 tabs 12/29/24 01/19/25 Rx release (Protonix) cholecalciferol (vitamin D3) 10 10 mcg PO 3XW suppliment 01/06/25 01/19/25 History mcg (400 unit) capsule sensitar 90 mg PO 3XW 01/06/25 01/19/25 History losartan 25 mg tablet 25 mg PO BID heart 01/08/25 Unknown History atorvastatin 40 mg tablet 40 mg PO QHS #90 tabs 01/16/25 01/18/25 Rx aspirin 81 mg chewable tablet 81 mg PO DAILY 01/19/25 01/19/25 History Allergy/AdvReac Type Severity Reaction Status Date / Time No Known Allergies Allergy Verified 01/19/25 17:12 Family History Other Cancer Diabetes Heart disease Surgical History History of cardiac catheterization Hx of colonoscopy with polypectomy History of esophagogastroduodenoscopy (EGD) Hx of arteriovenostomy for renal dialysis (~12/2019) Status post insertion of dialysis catheter (~11/2019) History of umbilical hernia s/p subclavian graft S/P knee surgery History of bicuspid aortic valve Social History household members: spouse housing: house Smoking Status: Light Smoker (<10/day) alcohol intake: never substance use type: does not use caffeine: Yes Type: coffee Number of servings: 2 Review of Systems (Anesthesia) ROS Narrative System reviewed and no additional complaints, except as documented.
--- NOTE | 2025-01-20 19:08 | PCM.POST.ANE ---
Anesthesia: Postop Eval I Current Vital Signs Temperature: 98.8 F Pulse Rate: 83 Blood Pressure: 132/81 Respiratory Rate: 16 Pulse Ox: 100 Oxygen Delivery Method: Room Air Assessment Airway patent: Yes Spontaneous unlabored respirations: Yes nausea: No Vomiting: No Anesthesia Complication: No Fluid Hydration Crystalloid volume administer (ml): 50 Total IV fluid infused: 50 Progress Note Anesthesia document: Postop Eval 1 completed: Yes
--- NOTE | 2025-01-20 19:12 | PCM.POSTANE2 ---
Anesthesia Postop Eval I Sum Postop Eval Completion status Anesthesia document: Postop Eval 1 completed: Yes Anesthesia Postop Eval I Summary Anesthesia Postop Eval I Summary: Anesthesia Postop Eval I: Assessment Summary Airway patent Yes 01/20/25 19:09 Spontaneous unlabored Yes 01/20/25 19:09 respirations Mental status nausea No 01/20/25 19:09 Vomiting No 01/20/25 19:09 Anesthesia Postop Eval I: Fluid Summary Crystalloid volume administer 50 01/20/25 19:09 (ml) Colloids volume administered ( ml) Blood Product volume administered (ml) Total IV fluid infused 50 01/20/25 19:09 Anesthesia Postop Eval I: Summary Notes Anesthesia Complication No 01/20/25 19:09 Anesthesia Complication Comment: Post-operative progress note Anesthesia: Postop Eval II Evaluation Mental status: Awake Pain Level: 0 nausea: No Vomiting: No
[2025-01-20] MEDS: 0.9% Saline Lock 10 ML Syringe IV (21:58)
[2025-01-20] MEDS: Acetaminophen 500 MG Tablet 1000 MG PO (22:02)
[2025-01-20] MEDS: Atorvastatin Calcium 40 MG Tablet PO (22:02)
[2025-01-20] MEDS: Losartan Potassium 25 MG Tablet PO (22:02)
[2025-01-20] MEDS: Ascorbic Acid 500 MG Tablet PO (22:03)
[2025-01-21] VITALS (8 sets, daily range): BP systolic 138–222; BP diastolic 70–113; PULSE 75–87; RESP 14–18; TEMP 36.5–36.6; O2SAT 100; BMI 28.1; BMI 27.1
[2025-01-21 06:32] LABS: Absolute Lymphocyte Count 0.89 X10^3/uL (0.83-4.51); Basophil# 0.06 X10^3/uL; Eosinophil# 0.12 X10^3/uL; Hematocrit 26.4 % (40-54); Hemoglobin 8.3 g/dL (13.0-16.5); Lymphocyte # 0.89 X10^3/ul (0.83-4.51); Lymphocyte % 14.8 % (19-41); Mean Corp Hgb Conc 31.4 g/dL (32-36); Mean Corpuscular Hgb 32.2 pg (27.0-32.0); Mean Corpuscular Volume 102.3 fL (80-94); Mean Platelet Vol. 11.3 fl (6.2-12.0); Monocyte# 0.95 X10^3/uL; Monocyte% 15.8 % (0-10); NRBC Flagged by Analyzer 0 % (0-5); Neutrophil % 66.2 % (47-70); Platelet Count 167 K/mm3 (150-450); RBC Distribution Width CV 15.3 % (11.6-14.6); RBC Distribution Width SD 56.8 fl (35.1-43.9); Red Blood Count 2.58 M/mm3 (4.6-6.2)
[2025-01-21 07:24] LABS: Anion Gap 17 (5-15); BUN 50 mg/dL (4-19); BUN/Creat Ratio 7.4 RATIO (10-20); Calcium,Total 8.5 mg/dL (7.6-11.0); Carbon Dioxide 26.8 mmol/L (21.0-32.0); Chloride 93 mmol/L (98-108); Creatinine, Serum 6.72 mg/dL (0.70-1.20); EST Glomerular Filtration Rate 8 (>60); Estimated Creatinine Clearance 11.66 ml/min (50-250); Glucose 106 mg/dL (70-99); Potassium 3.7 mmol/L (3.3-5.1); Sodium Level 136 mmol/L (133-145)
[2025-01-21] MEDS: 0.9% Normal Saline 1,000 ML IV.SOLN. 1000 ML OPERA.SITE (08:09)
[2025-01-21] MEDS: PureFlow B 3K Dialysis Soln 1 BAG 6 BAG PF (08:09)
[2025-01-21] MEDS: Aspirin 81 MG TAB.CHEW PO (11:35)
[2025-01-21] MEDS: Losartan Potassium 25 MG Tablet PO (11:36)
[2025-01-21] MEDS: Folic Acid/Vitamin B Comp W-C 1 Capsule 1 CAP PO (11:36)
[2025-01-21] MEDS: SEVELAMER CARBONATE 800 MG TABLET PO (11:36)
[2025-01-21] MEDS: Cinacalcet HCl 30 MG Tablet 90 MG PO (11:36)
[2025-01-21] MEDS: Ascorbic Acid 500 MG Tablet PO (11:36)
[2025-01-21] MEDS: Acetaminophen 500 MG Tablet 1000 MG PO (11:37)
[2025-01-21] MEDS: 0.9% Saline Lock 10 ML Syringe IV (11:40)
[2025-01-21] MEDS: Pantoprazole Sodium 40 MG in 0.9% Normal Saline (100mL MB+) 100 ML 330 MG IV (11:40)
--- NOTE | 2025-01-21 12:01 | DS.PCM_ITS ---
Providers Date of Admission: 01/19/25 Date of Discharge: 01/21/25 Primary Care Physician: Dr. Bekah Washington MD Consultations 01/19/25 20:29 Consult: Gastroenterology Routine Consulting Provider: Cade Ross Reason for Consult: GI bleeding EMERGENT Consult: No Notified: Yes Date Notified: 01/20/25 Time Notified: 06:57 Method of Notification: Text 01/20/25 09:46 Consult: Nephrology Routine Consulting Provider: Hanh Russo Reason for Consult: ESRD, on hemodialysis EMERGENT Consult: No Notified: Yes Date Notified: 01/20/25 Time Notified: 09:46 Method of Notification: Verbal Reason For Visit: GI BLEEDING Diagnosis Discharge Diagnosis (1) ESRD (end stage renal disease) on dialysis: Status: Inactive Code(s): N18.6 - End stage renal disease; Z99.2 - Dependence on renal dialysis Plan #Acute on chronic anemia due to lower GI bleed * Hb is 8.1. Was 9.2 on admission. Does have chronic anemia * Gastroenterology on board. He said he has not had any more rectal bleeding without any melena stools. * For EGD and colonoscopy today. On IV pantoprazole * Transfuse to keep hemoglobin greater than 7. * #ESRD * on hemodialysis. Nephrology consulted * on cinacalcet and renvela * #History of stroke * was recently diagnosed with a stroke. * On aspirin. This was continued in light of patient's recent stroke. * #History of peptic ulcer disease * on IV pantoprazole * #Hypertension: on losartan and carvedilol #History of bicuspid aortic valve: S/p TAVR in April 2024. 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 Stable. #History of hepatitis C: Follow-up with gastroenterology on outpatient basis #HFrEF: has known EF of 25%. NOT in exacerbation. Breathing treatment with bronchodilators. DVT prophylaxis: SCDs. Medications at Discharge Home Medications vitamin B complex-vitamin C-folic acid 0.8 mg tablet (Nephro-Christiano) 1 tab PO DAILY RENAL HEALTH 12/12/23 cyanocobalamin (vitamin B-12) 1,000 mcg tablet (Vitamin B-12) 1,000 mcg PO DAILY supplement 01/12/24 acetaminophen 500 mg tablet 1,000 mg PO BID PAIN 12/02/24 carvedilol 12.5 mg tablet 12.5 mg PO BID High bp 12/02/24 coenzyme Q10 200 mg capsule (Co Q-10) 200 mg PO DAILY suppliment 12/02/24 epoetin beta, methoxy peg See Rx Instructions subcut .COMPLEX PRN low blood counts 12/02/24 sevelamer carbonate 800 mg tablet 800 mg PO TIDCM phosphate binder 12/27/24 ascorbic acid (vitamin C) 500 mg tablet 500 mg PO BID suppliment #60 tabs 12/29/24 ferrous sulfate 325 mg (65 mg iron) tablet 325 mg PO QODAY anemia #30 tabs 12/29/24 pantoprazole 40 mg tablet,delayed release (Protonix) 40 mg PO BID stomach #60 tabs 12/29/24 cholecalciferol (vitamin D3) 10 mcg (400 unit) capsule 10 mcg PO 3XW suppliment 01/06/25 sensitar 90 mg PO 3XW 01/06/25 losartan 25 mg tablet 25 mg PO BID heart 01/08/25 atorvastatin 40 mg tablet 40 mg PO QHS #90 tabs 01/16/25 aspirin 81 mg chewable tablet 81 mg PO DAILY 01/19/25 pantoprazole 40 mg tablet,delayed release 40 mg PO BID #60 tabs 01/21/25 Hospital Course Operations None Procedures EGD Summary of Care Provided Minutes Spent on Discharge: 55 Hospital Course: Patient is a 69-year-old male with past medical history as outlined including recent right ischemic stroke and hypertension as well as right-sided carotid stenosis was admitted through the ED on 01/19/2025 with a complaint of bright red blood per rectum. He had 1 episode of bright red blood per rectum. 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 At the time of admission plan was for colonoscopy but this could not be completed due to bad bowel prep. Upon his discharge from that admission he was readmitted for slurred speech and right facial droop and diagnosed with ischemic stroke. Patient stated had 1 episode of bleeding per rectum and so came into the ED due to concerns for GI bleed. His aspirin was continued on admission due to concerns about the recent stroke. Gastroenterology was consulted. Of note patient was on dialysis and nephrology was also consulted. Patient had EGD and colonoscopy on 01/20/2025. Per discussion with gastroenterology the EGD showed a single bleeding angiectasia he also had some bleeding diverticuli which were all cauterized. Patient remained stable afterwards. Aspirin was continued and he was placed on p.o. pantoprazole 40 mg twice daily. Hemoglobin was 8.3 on day of discharge. 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 Patient seen and examined prior to discharge. He had no complaints and was eager to be discharged home. Review of systems otherwise negative. Labs and vitals reviewed. Home medication reviewed and reconciled. Physical Exam Const alert, oriented x3 and no apparent distress General Appearance: cooperative Orientation / Consciousness: awake Exam Limitations: no limitations HEENT normocephalic, head/scalp atraumatic, hearing grossly normal bilaterally, moist oral mucous membranes, oropharynx normal and gingiva normal Mouth: oral and palatal mucosa normal Eyes PERRL, EOMs intact bilaterally and conjunctivae normal Neck no lymphadenopathy, supple and no JVD Neck Narrative: Right carotid bruit present Lymph Lymphatic: no lymphadenopathy noted and no lymphedema noted Resp normal respiratory effort, normal air movement, no retractions, no use of accessory muscles and clear to auscultation bilaterally Cardio regular rate, regular rhythm, S1 normal heart sound, S2 normal heart sound and no murmurs GI normal to inspection, nondistended, normoactive bowel sounds, soft to palpation, non-tender and non-distended Extremity normal to inspection, full ROM, normal capillary refill, no clubbing, cyanosis or edema and no calf tenderness General Extremity: no tenderness to palpation of joints or extremities Skin no rashes or lesions noted General Skin Exam: no breakdown Neuro oriented x3, CN's II-XII intact bilaterally, moves all extremities, no focal motor deficits and no sensory deficits noted Sensorium / Orientation: awake and alert Motor Exam: strength 5/5 throughout and general weakness Psych thought process normal, cooperative and affect normal Appearance: appropriate Weight / BMI Weight Weight: 190 lb 0.615 oz Body Mass Index (BMI) 27.1 ABG / Lab / Microbiology Data 01/21/25 06:24 01/21/25 06:24 Laboratory: Laboratory Results - last 24 hr 01/21/25 06:24: WBC 6.0, RBC 2.58 L, Hgb 8.3 L, Hct 26.4 L, MCV 102.3 H, MCH 32.2 H, MCHC 31.4 L, RDW Std Deviation 56.8 H, RDW Coeff of Brynn 15.3 H, Plt Count 167, MPV 11.3, Immature Gran % (Auto) 0.200, Neut % (Auto) 66.2, Lymph % (Auto) 14.8 L, Gregory % (Auto) 15.8 H, Eos % (Auto) 2.0, Baso % (Auto) 1.0, Absolute Neuts (auto) 4.0, Absolute Lymphs (auto) 0.89, Nucleated RBC % 0, Sodium 136, Potassium 3.7, Chloride 93 L, Carbon Dioxide 26.8, Anion Gap 17 H, B UN 50 H, Creatinine 6.72 H, Estim Creat Clear Calc 11.66 L, Est GFR (MDRD) Non- Af 8 L, BUN/Creatinine Ratio 7.4 L, Glucose 106 H, Calcium 8.5 Microbiology: Microbiology 01/19/25 17:15 Stool Stool Occult Blood (LAMONTE) - Final Occult Blood Positive D/C Instructions Discharge Diet: Low fat / Low cholesterol Discharge Activity: Return to Normal Activity Weight Bearing Status: Weight bearing as tolerated Call your doctor if you observe: Fever of 101 or Higher, Shortness of breath, Dizziness, Swelling in the ankles, Chest pain and - (dark stools or bleeding from rectum) DC O2, CPAP, BIPAP Needs Home O2 Discharge instructions: No DC home with Oxygen: No Meaningful Use Info Meaningful Use Meaningful Use Diagnoses (Choose all that apply): None applicable Ischemic Stroke Statin Dosing Therapy Reference: STATIN DOSE THERAPY REFERENCE: * Patients > 75 years receive moderate or high dose statin therapy. * Patients 75 years or YOUNGER should receive HIGH intensity statin dose unless contraindicated. You will be required to document reason for non-treatment if statin daily dose does not meet guidelines. HIGH DOSE STATIN THERAPY DAILY Atorvastatin > than or = to 40 mg Rosuvastatin > than or = to 20 mg Amlodipine + Atorvastatin > than or = to 2.5/40 mg Ezetimibe + Simvastatin 10/80 mg Simvastatin 80mg Discharge Plan Admission Admit Date/Time: 01/19/25 19:16 Primary Reason for Your Visit: GI bleed Attending Provider: Venita Dunbar Primary Care Provider: Bekah Washington Consulting Providers: Sara Reddy; Cade Ross; Hanh Russo Instructions Patient Instructions: GI Bleeding Ch Discharge Orders/Prescriptions Prescriptions: New pantoprazole 40 mg tablet,delayed release (DR/EC) 40 mg PO BID Qty: 60 2RF Continued carvedilol 12.5 mg tablet 12.5 mg PO BID Rx Instructions: Does not take on Tuesdays, , and Saturdays due to dialysis coenzyme Q10 [Co Q-10] 200 mg capsule 200 mg PO DAILY epoetin beta, methoxy peg [Mircera] See Rx Instructions subcut .COMPLEX PRN (Reason: low blood counts) Patient Comments: THIS IS NOT ON A PERIOD SCHEDULE. Rx Instructions: only in dialysis subcutaneously PRN; administered by dialysis infusion cholecalciferol (vitamin D3) 10 mcg (400 unit) capsule 10 mcg PO 3XW Rx Instructions: On dialysis day. Thu, thu, Sat sensitar 90 mg PO 3XW Rx Instructions: Dialysis days. Thu, car, sat acetaminophen 500 mg tablet 1,000 mg PO BID Nephro-Christiano 0.8 mg tablet 1 tab PO DAILY cyanocobalamin (vitamin B-12) [Vitamin B-12] 1,000 mcg tablet 1,000 mcg PO DAILY sevelamer carbonate 800 mg tablet 800 mg PO TIDCM pantoprazole [Protonix] 40 mg tablet,delayed release (DR/EC) 40 mg PO BID Qty: 60 1RF ferrous sulfate 325 mg (65 mg iron) tablet 325 mg PO QODAY Qty: 30 2RF ascorbic acid (vitamin C) 500 mg tablet 500 mg PO BID Qty: 60 2RF aspirin 81 mg Tablet,Chewable 81 mg PO DAILY losartan 25 mg Tablet 25 mg PO BID Rx Instructions: does not take am dose on dialysis days sat atorvastatin 40 mg tablet 40 mg PO QHS Qty: 90 3RF Referrals / Follow Up: Bekah Washington MD [Primary Care Provider] - Within 1 Week Cade Ross DO [Med Staff - Active Staff] - Within 1 Week Disposition Disposition (needs filled in before D/C Order can be placed): Home, Self Care Charges/Coding Visit Charges Inpatient E&M: 78420 Disch Hosp >30min
--- NOTE | 2025-01-21 12:01 | DCINST_ITS ---
Discharge Instructions Diet Discharge Diet: Low fat / Low cholesterol DC O2, CPAP, BIPAP needs Home O2 Discharge instructions: No Dressing / Incision Discharge Activity: Return to Normal Activity Weight Bearing Status: Weight bearing as tolerated Dressing / Incision Call your doctor if you observe: Fever of 101 or Higher, Shortness of breath, Dizziness, Swelling in the ankles, Chest pain and - (dark stools or bleeding from rectum) Follow Up Care Test Results: Test results from this visit will be discussed in further detail at your follow- up appointment, if applicable. Discharge Plan Admission Admit Date/Time: 01/19/25 19:16 Primary Reason for Your Visit: GI bleed Attending Provider: Venita Dunbar Primary Care Provider: Bekah Washington Consulting Providers: Sara Reddy; Cade Ross; Hanh Russo Instructions Patient Instructions: GI Bleeding Ch Discharge Orders/Prescriptions Prescriptions: New pantoprazole 40 mg tablet,delayed release (DR/EC) 40 mg PO BID Qty: 60 2RF Continued carvedilol 12.5 mg tablet 12.5 mg PO BID Rx Instructions: Does not take on Tuesdays, , and Saturdays due to dialysis coenzyme Q10 [Co Q-10] 200 mg capsule 200 mg PO DAILY epoetin beta, methoxy peg [Mircera] See Rx Instructions subcut .COMPLEX PRN (Reason: low blood counts) Patient Comments: THIS IS NOT ON A PERIOD SCHEDULE. Rx Instructions: only in dialysis subcutaneously PRN; administered by dialysis infusion cholecalciferol (vitamin D3) 10 mcg (400 unit) capsule 10 mcg PO 3XW Rx Instructions: On dialysis day. Tue, car, Sat sensitar 90 mg PO 3XW Rx Instructions: Dialysis days. Tue, car, sat acetaminophen 500 mg tablet 1,000 mg PO BID Nephro-Christiano 0.8 mg tablet 1 tab PO DAILY cyanocobalamin (vitamin B-12) [Vitamin B-12] 1,000 mcg tablet 1,000 mcg PO DAILY sevelamer carbonate 800 mg tablet 800 mg PO TIDCM pantoprazole [Protonix] 40 mg tablet,delayed release (DR/EC) 40 mg PO BID Qty: 60 1RF ferrous sulfate 325 mg (65 mg iron) tablet 325 mg PO QODAY Qty: 30 2RF ascorbic acid (vitamin C) 500 mg tablet 500 mg PO BID Qty: 60 2RF aspirin 81 mg Tablet,Chewable 81 mg PO DAILY losartan 25 mg Tablet 25 mg PO BID Rx Instructions: does not take am dose on dialysis days thu atorvastatin 40 mg tablet 40 mg PO QHS Qty: 90 3RF Referrals / Follow Up: Bekah Washington MD [Primary Care Provider] - Within 1 Week Friend,DO Cade [Med Staff - Active Staff] - Within 1 Week Disposition Disposition (needs filled in before D/C Order can be placed): Home, Self Care
== END 2025-01-21 12:52 | disposition home or self-care (01) | DRG 377 ==
LOC: ED 18:57 → MS3 19:35
PROVIDERS: Internal Medicine Gastroenterology; Admitting Provider Internal Medicine; Emergency Provider Emergency Medicine; PCP Internal Medicine; Visit Provider Student in an Organized Health Care Education/Training Program
PROC: 0DJ08ZZ Inspection of Upper Intestinal Tract, Via Natural or Artificial Opening Endoscopic (ICD-10-PCS; CPT 43235; principal; 2025-01-20 16:40)
DX: K31.811 Angiodysplasia of stomach and duodenum with bleeding (principal); N18.6 End stage renal disease; I13.2 Hypertensive heart and chronic kidney disease with heart failure and with stage 5 chronic kidney disease, or end stage renal disease; I01.1 Acute rheumatic endocarditis; I50.22 Chronic systolic (congestive) heart failure; N25.81 Secondary hyperparathyroidism of renal origin; M05.20 Rheumatoid vasculitis with rheumatoid arthritis of unspecified site; D63.1 Anemia in chronic kidney disease; I65.21 Occlusion and stenosis of right carotid artery; Z99.2 Dependence on renal dialysis; D50.9 Iron deficiency anemia, unspecified; F17.210 Nicotine dependence, cigarettes, uncomplicated; I25.10 Atherosclerotic heart disease of native coronary artery without angina pectoris; I44.0 Atrioventricular block, first degree; I35.1 Nonrheumatic aortic (valve) insufficiency; K21.9 Gastro-esophageal reflux disease without esophagitis; M19.90 Unspecified osteoarthritis, unspecified site; M54.9 Dorsalgia, unspecified; K44.9 Diaphragmatic hernia without obstruction or gangrene; Z95.2 Presence of prosthetic heart valve; G89.29 Other chronic pain; E66.3 Overweight; K57.33 Diverticulitis of large intestine without perforation or abscess with bleeding; Z87.19 Personal history of other diseases of the digestive system; Q23.81 Bicuspid aortic valve; Z79.82 Long term (current) use of aspirin; Z87.11 Personal history of peptic ulcer disease; Z86.73 Personal history of transient ischemic attack (TIA), and cerebral infarction without residual deficits; Z68.27 Body mass index [BMI] 27.0-27.9, adult; Z86.718 Personal history of other venous thrombosis and embolism; Z86.79 Personal history of other diseases of the circulatory system; Z86.19 Personal history of other infectious and parasitic diseases; Z79.899 Other long term (current) drug therapy
CPT/HCPCS: 36415; 80048; 80053; 82248; 82274; 83735; 84100; 84443; 85025; 85027; 85610; 90937; 93005; 99285; 99406; C1889; A4216; G0257

== ENCOUNTER 2025-02-08 08:50 | Inpatient (IN) | payer MEDICARE, BC, SELFPAY ==
[2024-12-30 10:19] VITALS: BMI 29.4
[2025-02-08] VITALS (10 sets, daily range): BP systolic 89–137; BP diastolic 51–82; PULSE 75–89; RESP 14–22; TEMP 36.6–37.1; O2SAT 96–99; BMI 28.8
--- NOTE | 2025-02-08 09:02 | EKG12_ITS ---
Test Reason : Blood Pressure : */* mmHG Vent. Rate : 84 BPM Atrial Rate : 84 BPM P-R Int : 206 ms QRS Dur : 162 ms QT Int : 458 ms P-R-T Axes : * -60 95 degrees QTcB Int : 541 ms Sinus rhythm with Premature atrial complexes Left axis deviation Left bundle branch block Abnormal ECG Confirmed by Aric Palomo ([id number]), newspaper editor managing BHAVNA LOOMIS ([id number]) on 02/09/2025 7:54:43 AM Referred By: SUSAN Confirmed By: Aric Palomo
--- NOTE | 2025-02-08 09:05 | EDS_ITS ---
HPI History of Present Illness Chief Complaint: GI Bleed Detail of Chief Complaint: Black tarry stools noted yesterday Informant: patient and spouse/S.O. 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 He had a recent TAVR procedure at [facility]. He is on a baby aspirin. He is on no anticoagulant. He is dialyzed on Thursday, and Thursday. He does not receive heparin during dialysis. The helps with history since she has everything [place] a piece of paper and he is not as quick since having a stroke June 2024. He denies nausea or vomiting. He denies upper abdominal pain. He does have history of diverticulosis and diverticular bleed. He has a fistula left forearm. He denies fever, chills night sweats. He denies double vision blurred vision loss of vision. He denies trouble with speech or hearing. He denies chest discomfort, orthopnea or PND. He does endorse dyspnea with activity. He denies dysuria, frequency, urgency or hematuria. He denies bruising easily. He is seen by Dr. Garcia for a 75% lesion of his carotid. Plan is repair once he is cleared for antithrombotics/anticoagulants. Prior similar symptoms: Yes Recent Illness/Hospitalization: Yes (December 26) [facility] Medical History Carotid stenosis, right ESRD (end stage renal disease) on dialysis Acute anemia Black stool History of transcatheter aortic valve replacement (TAVR) Wears glasses History of steroid therapy History of renal disease Low iron Rheumatoid arthritis Back pain Migraine headache Dietary restriction History of diverticulitis History of ulceration Shortness of breath on exertion Lymphedema History of echocardiogram Cardiology follow-up encounter Hypertension Chronic renal failure Anemia DVT (deep venous thrombosis) End stage renal disease on dialysis Secondary hyperparathyroidism Generalized weakness Acute on chronic anemia Chronic anemia Acute upper GI bleed History of end stage renal disease History of renal dialysis Dialysis patient Hepatitis Smoker Bursitis Problem with dialysis access Rectal bleeding Subclavian aneurysm Kidney failure due to vascular disorder Cardiac disease Rheumatoid vasculitis Rheumatoid aortitis Home Medications ?Medication ?Instructions ?Recorded ?Last Taken ?Type vitamin B complex-vitamin C-folic 1 tab PO DAILY RENAL HEALTH 12/12/23 02/07/25 History acid 0.8 mg tablet (Nephro-Christiano) cyanocobalamin (vitamin B-12) 1,000 mcg PO DAILY suppl ement 01/12/24 02/08/25 History 1,000 mcg tablet (Vitamin B-12) acetaminophen 500 mg tablet 1,000 mg PO BID PAIN 12/0202/08/25 History carvedilol 12.5 mg tablet 12.5 mg PO BID High bp 12/0202/08/25 History coenzyme Q10 200 mg capsule (Co 200 mg PO DAILY suppli ment 12/02/24 02/08/25 History Q-10) epoetin beta, methoxy peg See Rx Instructions subcut 0 12/02/24 02/04/25 History .COMPLEX PRN low blood counts sevelamer carbonate 800 mg tablet 800 mg PO TIDCM phos phate binder 12/27/24 02/07/25 History ascorbic acid (vitamin C) 500 mg 500 mg PO BID supplim ent #60 tabs 12/29/24 01/19/25 Rx tablet pantoprazole 40 mg tablet,delayed 40 mg PO BID stomach #60 tabs 12/29/24 02/08/25 Rx release (Protonix) cholecalciferol (vitamin D3) 10 10 mcg PO 3XW supplime nt 01/06/25 02/07/25 History mcg (400 unit) capsule sensitar 90 mg PO 3XW 01/06/25 History atorvastatin 40 mg tablet 40 mg PO QHS #90 tabs 02/07/25 Rx aspirin 81 mg chewable tablet 81 mg PO DAILY 01/19/25 01/19/25 History ferrous sulfate 325 mg (65 mg 325 mg PO .COMPLEX anemi a 02/03/25 02/06/25 History iron) tablet losartan 25 mg tablet 25 mg PO BID heart 02/03/25 02/08/25 History Allergy/AdvReac Type Severity Reaction Status Date / Time No Known Allergies Allergy Verified 02/08/25 08:53 Family History Father Heart disease Atrial fibrillation Mother , 88 Heart disease Myocardial infarction Other Cancer Diabetes Surgical History History of cardiac catheterization Hx of colonoscopy with polypectomy History of esophagogastroduodenoscopy (EGD) Hx of arteriovenostomy for renal dialysis (~12/2019) Status post insertion of dialysis catheter (~11/2019) History of umbilical hernia s/p subclavian graft S/P knee surgery History of bicuspid aortic valve Social History household members: spouse housing: house Smoking Status: Light Smoker (<10/day) alcohol intake: never substance use type: does not use caffeine: Yes Type: coffee Number of servings: 2 ROS ROS ED Constitutional Constitutional ED: Denies chills, fever(s), subjective, sweats or weight loss Eyes Eyes: Denies blurry vision or change in vision ENT ENT ED: Denies rhinorrhea or sore throat Cardiovascular Cardiovascular: Reports other Details: He denied orthostatic symptoms. ; Denies chest pain, orthopnea, palpitations, paroxysmal nocturnal dyspnea or racing heartbeat Respiratory/Chest Respiratory/Chest: Reports dyspnea and dyspnea on exertion; Denies cough, orthopnea or paroxysmal nocturnal dyspnea Gastrointestinal Gastrointestinal: Reports melena; Denies abdominal pain, diarrhea, nausea or vomiting Genitourinary Genitourinary ED: Denies dysuria or hematuria Musculoskeletal Musculoskeletal: Denies arthralgias or myalgias Integumentary Denies rash Neurologic Neurologic: Reports weakness Hematologic/Lymphatic Hematologic/Lymphatic: Reports systems reviewed and no addt'l complaints, except as documented EXAM Physical Exam Const Vital Signs: 02/08/25 08:51 02/08/25 09:35 Temperature 98.2 F Temperature Source Oral Pulse Rate 89 Pulse Rate [Lying] 75 Pulse Rate [Sitting (for 1 minute prior to obtaining)] 79 Pulse Rate [Standing (for 1 minute prior to obtaining)] 81 Respiratory Rate 14 Blood Pressure 131/77 H Blood Pressure [Lying] 103/72 Blood Pressure [Sitting (for 1 minute prior to obtaining)] 109/75 Blood Pressure [Standing (for 1 minute prior to obtaining)] 110/74 Blood Pressure Mean 95 Blood Pressure Mean [Lying] 82 Blood Pressure Mean [Sitting (for 1 minute prior to obtaining)] 86 Blood Pressure Mean [Standing (for 1 minute prior to obtaining)] 86 Pulse Ox 99 Oxygen Delivery Method Room Air Positive well nourished and well developed Constitutional Narrative: Patient appears pale. He appears ill. Vital signs are marked for slight elevation of blood pressure. General Appearance ED: well developed and pallor HEENT Reports moist mucous membranes HEENT Narrative: Head is atraumatic and normocephalic. Nares are patent. Posterior pharynx is normal. Eyes PERRL and EOMs intact bilaterally General Eye ED: Yes pale conjunctiva; Negative for scleral icterus Neck no lymphadenopathy, supple and no JVD Neck Narrative: Question of a carotid bruit on the right. Chest Wall Negative for inspection of chest normal or palpation of chest normal Resp normal respiratory effort and clear to auscultation bilaterally Cardio regular rate, regular rhythm, S1 normal heart sound and S2 normal heart sound; Negative for no murmurs GI normal to inspection, nondistended, normoactive bowel sounds, non-tender, non- distended and no masses; Negative for hepatosplenomegaly GI Narrative: Rectal exam revealed no fissures, fistulas or hemorrhoids. Stool is tarry and appears to be blackish maroon in color. Auscultation: normoactive bowel sounds Palpation: soft Narrative: External genitalia normal. Back/Spine no CVA tenderness Extremity Negative for normal to inspection Extremity Narrative: Right lower extremity is swollen compared to left. This is chronic per patient and . Also noted on prior history and physicals. Neuro oriented x3 and CN's II-XII intact bilaterally Neuro Narrative: He is awake. Sensorium / Orientation: Negative for alert Psych Mood & Affect: depressed Skin No no rashes or lesions noted and no wounds Skin Narrative: Patient has significant dry skin possible early pressure sores buttocks. General Skin Exam: pallor; Negative for elasticity normal or jaundice MDM MDM MDM Narrative Medical decision making narrative: Patient with GI bleed. Patient has history of both upper and lower GI bleed. Dr. Ross's office note from January 20 was reviewed. Since patient clinically has signs and symptoms of anemia and is symptomatic he was typed and screened. He was informed as was his that he will require admission. Will obtain EKG to evaluate for evidence of cardiac ischemia. CBC to determine H&H compared to prior as well as platelet count. BMP to assess BUN to creatinine ratio and determine what his BUN and creatinine are since he is on hemodialysis. History & Record Review Additional record(s) reviewed:: Prior inpatient record (Discharge note authored by Dr. Smith January 21 for GI bleed. Also noted to have carotid stenosis.), Prior outpatient record (Dr. Ross's office note from January 20, 2025. Nephrology note from December 29, 2024.), Prior ED visit and Prior labs Lab Data Attestation: I reviewed the patient's lab results. Lab results narrative: CBC is remarkable and H&H 8.3 and 26.2. This is approximately patient's baseline. MCV is elevated 101.6 basic metabolic panel reveals a BUN/creatinine of 50 and 5.61 which is not unexpected in a patient on hemodialysis. He also has hypochloremia, which she has had on prior results. Hemoccult test was positive. Labs: Laboratory Results - last 24 hr 02/08/25 09:23 WBC 7.0 RBC 2.58 L Hgb 8.3 L Hct 26.2 L MCV 101.6 H MCH 32.2 H MCHC 31.7 L RDW Std Deviation 58.3 H RDW Coeff of Brynn 15.6 H Plt Count 166 MPV 11.4 Sodium 136 Potassium 3.7 Chloride 91 L Carbon Dioxide 28.0 Anion Gap 17 H BUN 50 H Creatinine 5.61 H Estim Creat Clear Calc 14.11 L Est GFR (MDRD) Non-Af 10 L BUN/Creatinine Ratio 9.0 L Glucose 109 H Lactic Acid 1.2 Calcium 9.1 Blood Type A POSITIVE Antibody Screen NEGATIVE EKG Initial EKG: Attestation: I personally reviewed and interpreted this EKG as follows: Interpretation: Sinus Rhythm (Rate is 84. There are premature atrial beats. Patient has a left axis and left bundle branch block. This is known. MA interval is 206 ms. History is 162 ms. QT duration 458 ms. There are no acute ischemic changes.) Management Discussion w/another healthcare provider: Hospitalist (Spoke with Dr. Torre the hospitalist admitting patient. Full admission PCU.) and [facility]atic [facility] Manager (Spoke with Angelique Ross's nurse practitioner. She will notify Dr. Ross that patient presented with GI bleed with maroon-colored stool.) Discharge Plan Triage Chief Complaint: GI Bleed ED Provider: Rios,Chago Dx/Rx/DC Orders Clinical Impression: Acute gastrointestinal bleeding, HTN (hypertension), Chronic renal insufficiency, stage V, Obesity (BMI 30-39.9), Hepatitis C test positive, History of transcatheter aortic valve replacement (TAVR), Left bundle branch block, CAD (coronary artery disease), Signs and symptoms of anemia, Symptomatic anemia Prescriptions: No Action carvedilol 12.5 mg tablet 12.5 mg PO BID Rx Instructions: Does not take on Tuesdays, , and Saturdays due to dialysis coenzyme Q10 [Co Q-10] 200 mg capsule 200 mg PO DAILY epoetin beta, methoxy peg [Mircera] See Rx Instructions subcut .COMPLEX PRN (Reason: low blood counts) Patient Comments: GETS [facility] Rx Instructions: only in dialysis subcutaneously PRN; administered by dialysis infusion cholecalciferol (vitamin D3) 10 mcg (400 unit) capsule 10 mcg PO 3XW Patient Comments: GETS AT [facility] Rx Instructions: On dialysis day. Thu, thu, Sat sensitar 90 mg PO 3XW Patient Comments: GETS AT [facility] Rx Instructions: Dialysis days. Tue, car, sat ferrous sulfate 325 mg (65 mg iron) tablet 325 mg PO .COMPLEX Patient Comments: TAKES AT DINNER TIME Rx Instructions: 325 mg orally Thursday, , and Thu; acetaminophen 500 mg tablet 1,000 mg PO BID Nephro-Christiano 0.8 mg tablet 1 tab PO DAILY Patient Comments: TAKES IN AM ON THURSDAY, THURSDAY, THURSDAY, AND THURSDAY. TAKES AT DINNER TIME ON THURSDAY, THURSDAY, AND THURSDAY. cyanocobalamin (vitamin B-12) [Vitamin B-12] 1,000 mcg tablet 1,000 mcg PO DAILY sevelamer carbonate 800 mg tablet 800 mg PO TIDCM pantoprazole [Protonix] 40 mg tablet,delayed release (DR/EC) 40 mg PO BID Qty: 60 1RF ascorbic acid (vitamin C) 500 mg tablet 500 mg PO BID Qty: 60 2RF aspirin 81 mg Tablet,Chewable 81 mg PO DAILY Patient Comments: TAKES AT DINNER TIME losartan 25 mg tablet 25 mg PO BID Rx Instructions: does not take am dose on dialysis days sat atorvastatin 40 mg tablet 40 mg PO QHS Qty: 90 3RF Primary Care Provider: Pavithra Henning Referrals: Bekah Washington MD [Non-Staff] - Print Language: Hong Konger Disposition Disposition: Acute Care Hospital [facility]
[2025-02-08 09:29] LABS: Hematocrit 26.2 % (40-54); Hemoglobin 8.3 g/dL (13.0-16.5); Mean Corp Hgb Conc 31.7 g/dL (32-36); Mean Corpuscular Hgb 32.2 pg (27.0-32.0); Mean Corpuscular Volume 101.6 fL (80-94); Mean Platelet Vol. 11.4 fl (6.2-12.0); Platelet Count 166 K/mm3 (150-450); RBC Distribution Width CV 15.6 % (11.6-14.6); RBC Distribution Width SD 58.3 fl (35.1-43.9); Red Blood Count 2.58 M/mm3 (4.6-6.2)
[2025-02-08 09:56] LABS: Lactic Acid 1.2 mmol/L (0.0-2.0)
[2025-02-08 10:01] LABS: Anion Gap 17 (5-15); BUN 50 mg/dL (4-19); Calcium,Total 9.1 mg/dL (7.6-11.0); Chloride 91 mmol/L (98-108); Creatinine, Serum 5.61 mg/dL (0.70-1.20); EST Glomerular Filtration Rate 10 (>60); Estimated Creatinine Clearance 14.11 ml/min (50-250); Glucose 109 mg/dL (70-99); Potassium 3.7 mmol/L (3.3-5.1); Sodium Level 136 mmol/L (133-145)
--- NOTE | 2025-02-08 10:55 | PCM.HP.STD ---
HPI - General General Date of Admission: 02/08/25 Date of Service: 02/08/25 Chief Complaint: 3 days of black tarry stool. HPI Narrative BINDU DUMONT, is a 69 M with multiple comorbidities came to ED with 3 days of black tarry stool, 3 times a day. Patient had a history of GI bleed in the past, last admission on 01/21/2025. Patient denies abdominal pain but had transient heartburn yesterday which got resolved. No fever or chills. Patient is on hemodialysis and makes 1 tablespoon of urine. Denies chest pain or shortness of breath. In ED, hemoglobin is low. Patient denies feeling of dizziness or lightheadedness. BP 131/77. Orthostatic vital does not show significant change in heart rate or blood pressure. He is further admitted [facility] Medical History Carotid stenosis, right ESRD (end stage renal disease) on dialysis Acute anemia Black stool History of transcatheter aortic valve replacement (TAVR) Wears glasses History of steroid therapy History of renal disease Low iron Rheumatoid arthritis Back pain Migraine headache Dietary restriction History of diverticulitis History of ulceration Shortness of breath on exertion Lymphedema History of echocardiogram Cardiology follow-up encounter Hypertension Chronic renal failure Anemia DVT (deep venous thrombosis) End stage renal disease on dialysis Secondary hyperparathyroidism Generalized weakness Acute on chronic anemia Chronic anemia Acute upper GI bleed History of end stage renal disease History of renal dialysis Dialysis patient Hepatitis Smoker Bursitis Problem with dialysis access Rectal bleeding Subclavian aneurysm Kidney failure due to vascular disorder Cardiac disease Rheumatoid vasculitis Rheumatoid aortitis Home Medications ?Medication ?Instructions ?Recorded ?Last Taken ?Type vitamin B complex-vitamin C-folic 1 tab PO DAILY RENAL HEALTH 12/12/23 02/07/25 History acid 0.8 mg tablet (Nephro-Christiano) cyanocobalamin (vitamin B-12) 1,000 mcg PO DAILY supplement 01/12/24 02/08/25 History 1,000 mcg tablet (Vitamin B-12) acetaminophen 500 mg tablet 1,000 mg PO BID PAIN 12/02/24 02/08/25 History carvedilol 12.5 mg tablet 12.5 mg PO BID High bp 12/02/24 02/08/25 History coenzyme Q10 200 mg capsule (Co 200 mg PO DAILY suppliment 12/02/24 02/08/25 History Q-10) epoetin beta, methoxy peg See Rx Instructions subcut 12/02/24 02/04/25 History .COMPLEX PRN low blood counts sevelamer carbonate 800 mg tablet 800 mg PO TIDCM phosphate binder 12/27/24 02/07/25 History ascorbic acid (vitamin C) 500 mg 500 mg PO BID suppliment #60 tabs 12/29/24 01/19/25 Rx tablet pantoprazole 40 mg tablet,delayed 40 mg PO BID stomach #60 tabs 12/29/24 02/08/25 Rx release (Protonix) cholecalciferol (vitamin D3) 10 10 mcg PO 3XW suppliment 01/06/25 02/07/25 History mcg (400 unit) capsule sensitar 90 mg PO 3XW 01/06/25 02/07/25 History atorvastatin 40 mg tablet 40 mg PO QHS #90 tabs 01/16/25 02/07/25 Rx aspirin 81 mg chewable tablet 81 mg PO DAILY 01/19/25 01/19/25 History ferrous sulfate 325 mg (65 mg 325 mg PO .COMPLEX anemia 02/03/25 02/06/25 History iron) tablet losartan 25 mg tablet 25 mg PO BID heart 02/03/25 02/08/25 History Allergy/AdvReac Type Severity Reaction Status Date / Time No Known Allergies Allergy Verified 02/08/25 08:53 Family History Father Heart disease Atrial fibrillation Mother , 88 Heart disease Myocardial infarction Other Cancer Diabetes Surgical History History of cardiac catheterization Hx of colonoscopy with polypectomy History of esophagogastroduodenoscopy (EGD) Hx of arteriovenostomy for renal dialysis (~12/2019) Status post insertion of dialysis catheter (~11/2019) History of umbilical hernia s/p subclavian graft S/P knee surgery History of bicuspid aortic valve Social History household members: spouse housing: house Smoking Status: Light Smoker (<10/day) alcohol intake: never substance use type: does not use caffeine: Yes Type: coffee Number of servings: 2 ROS ROS Narrative Constitutional: Reports fatigue and weakness. No fever. HEENT: Reports systems reviewed and no addt'l complaints, except as documented Respiratory/Chest: surgical scar right clavicular region for repair of right subclavian artery aneurysm. No acute shortness of breath or respiratory distress or wheezing. CVS: No chest pain. No pacemaker. Gastrointestinal: Denies coffee ground emesis, hematemesis or vomiting Genitourinary: On hemodialysis. Musculoskeletal: Chronic joint pain. Denies acute joint pain or limited range of motion. No acute injury Neurologic: Denies seizure-like symptoms. skin: Bilateral lymphedema. No ulcer. No rash Endocrinology: Reports systems reviewed and no addt'l complaints, except as documented Hematologic/Lymphatic: Reports systems reviewed and no addt'l complaints, except as documented Rest 14 ROS are negative except as mentioned in HPI Vital Signs Vital Signs Vital Signs: 02/08/25 08:51 02/08/25 09:35 Temperature 98.2 F Temperature Source Oral Pulse Rate 89 Pulse Rate [Lying] 75 Pulse Rate [Sitting (for 1 minute prior to obtaining)] 79 Pulse Rate [Standing (for 1 minute prior to obtaining)] 81 Respiratory Rate 14 Blood Pressure 131/77 H Blood Pressure [Lying] 103/72 Blood Pressure [Sitting (for 1 minute prior to obtaining)] 109/75 Blood Pressure [Standing (for 1 minute prior to obtaining)] 110/74 Blood Pressure Mean 95 Blood Pressure Mean [Lying] 82 Blood Pressure Mean [Sitting (for 1 minute prior to obtaining)] 86 Blood Pressure Mean [Standing (for 1 minute prior to obtaining)] 86 Pulse Ox 99 Oxygen Delivery Method Room Air Weight Weight: 201 lb 0.985 oz Body Mass Index (BMI) 28.8 Physical Exam Narrative General: Alert, Oriented x3, Cooperative HEENT: Chronic photophobia. Wears tinted glasses. Atraumatic, PERRLA, EOMI, Normocephalic Oral: Oral mucosa dry. No Gingival or Mucosal Lesions/ Ulcerations Neck: Supple, No JVD, Negative Carotid Bruits Chest wall/Lungs: Air entry diminished in bilateral lung bases. No crepitation/rhonchi Cardiovascular: Sinus rhythm, Normal S1, Normal S2, systolic murmur. Abdomen: Bowel Sounds Present, Soft, Non Tender, Non-Distended : No dysuria. No renal angle tenderness. No suprapubic tenderness. Extremities: Bilateral lower extremity lymphedema, wears stockings. Capillary Refill Less than 3 Seconds Skin: No rashes, No breakdown Musculoskeletal: No Tenderness to Palpation of Joints or Extremities Neurological: Cranial nerves II-XII grossly intact, DTR 2+/4. No acute focal neurological deficit. Psych/Mental Status: Flat affect. Results Lab / Micro Data 02/08/25 09:23 02/08/25 09:23 Labs: Laboratory Results - last 24 hr 02/08/25 09:23: WBC 7.0, RBC 2.58 L, Hgb 8.3 L, Hct 26.2 L, MCV 101.6 H, MCH 32.2 H, MCHC 31.7 L, RDW Std Deviation 58.3 H, RDW Coeff of Brynn 15.6 H, Plt Count 166, MPV 11.4, Sodium 136, Potassium 3.7, Chloride 91 L, Carbon Dioxide 28.0, Anion Gap 17 H, BUN 50 H, Creatinine 5.61 H, Estim Creat Clear Calc 14.11 L, Est GFR (MDRD) Non-Af 10 L, BUN/Creatinine Ratio 9.0 L, Glucose 109 H, Lactic Acid 1.2, Calcium 9.1, Blood Type A POSITIVE, Antibody Screen NEGATIVE Micro: Microbiology 02/08/25 09:14 Stool Stool Occult Blood (LAMONTE) - Final Occult Blood Positive Assessment & Plan Assessment/Plan (1) Symptomatic anemia: (2) Acute gastrointestinal bleeding: PLAN: Plan 69-year-old gentleman was admitted with3 days history of black tarry stool. Has recurrent admission for GI bleed. Patient has increased weakness and fatigue. No abdominal pain. 1. Most likely acute upper GI bleed with severe anemia: Patient is being admitted in PCU. His hemoglobin is on baseline, hematocrit 26%. His H&H baseline stays around 9 g/28%. Stool for occult blood positive. GI consulted. Pantoprazole 40 mg IV every 12 hourly. -Patient has a history of bleeding ulcers and has had 4 peptic ulcers and angiodysplastic lesion cauterized in the past. Type and crossmatch ordered - 12/29/2024: Patient had EGD on 12/28: Impressions : - Normal esophagus. - A single bleeding angiodysplastic lesion in the stomach. Treated with a heater probe. - Normal examined duodenum. - Normal examined jejunum. Colonoscopy 01/20/2025: Diffuse diverticulosis in the sigmoid colon, sigmoid colon, DC, splenic flexure, TC and hepatic flexure and ascending colon. Examined portion of ileum normal. Impression likely diverticular bleed. 2. ESRD on HD: Pediatrics Hospitalist consulted -Daily weights, I's and O's, renal Dialysis days are Thursday and Thursday. PT and OT ordered 3. History of chronic heart failure with reduced ejection fraction: Twelve-lead EKG shows sinus rhythm, PAC, 84 bpm, LAD, chronic LBBB. -Patient's last echo 09/28/2024 with EF of 25% -Maintain heart failure core measures including intake and output, fluid restriction less than 1500 mL, daily weight monitoring, kidney and electrolytes monitoring. 4. Hypertension: BP is borderline 98/65, 89/66 but most recent 116/75. Hold antihypertensive medications for now. 5. Chronic Tobacco use, smokes less than 10 cigarettes/day. -Advise cessation -Nicotine replacement offered 6 DVT prophylaxis, high risk: SCDs. Pharmacological prophylaxis contraindicated. Living will/advanced directive/end of life care: Patient does not have living will or advanced directive. His power of risk mgr for anything is his present in the ED. After discussion of benefits/risks procedures involved with full code, DNR CC arrest and DNR CC, the patient and his opted for full code. Patient does want artificial life support including intubation, tube feed, ventilator and/chest compression, central venous catheter, vasopressor and DC shock if needed Total time spent in [id number] encounter in discussion of advanced directive 17 minutes. Microbiology Past 72 Hours 02/08/25 09:14 Stool Stool Occult Blood (LAMONTE) - Final Occult Blood Positive Laboratory Results 02/08/25 09:23: WBC 7.0, RBC 2.58 L, Hgb 8.3 L, Hct 26.2 L, MCV 101.6 H, MCH 32.2 H, MCHC 31.7 L, RDW Std Deviation 58.3 H, RDW Coeff of Brynn 15.6 H, Plt Count 166, MPV 11.4, Sodium 136, Potassium 3.7, Chloride 91 L, Carbon Dioxide 28.0, Anion Gap 17 H, BUN 50 H, Creatinine 5.61 H, Estim Creat Clear Calc 14.11 L, Est GFR (MDRD) Non-Af 10 L, BUN/Creatinine Ratio 9.0 L, Glucose 109 H, Lactic Acid 1.2, Calcium 9.1, Magnesium 2.3 H, Blood Type A POSITIVE, Antibody Screen NEGATIVE Charges/Coding Multi Select Codes Visit Charges Visit Charges: 80255 Init Hosp Hospitalists' Procedures Procedures: 85998 Advncd Care Plan 30 Min
[2025-02-08 11:41] LABS: Magnesium 2.3 mg/dL (1.5-2.2)
--- NOTE | 2025-02-08 11:52 | ED.RN ---
Pt's blood pressure decreased, ordered 500ml of NS. Pt refuses fluids, states he had dialysis yesterday and they weren't able to remove all of his fluid. aware.
--- NOTE | 2025-02-08 15:17 | CASEMGMT ---
Social Work Patient had recent admission from 01/19-01/21/25. No changes from last CM assessment other than patient is currently seeing ST at [facility]. Patient anticipates dc home when medically ready. Morena Bella, TEST DESK OPERATOR, LEAD CYTOGENETIC TECHNOLOGIST
--- NOTE | 2025-02-08 15:33 | PCM.CONS.R ---
Assessment & Plan Assessment/Plan (1) ESRD (end stage renal disease): PLAN: Plan Patient has history of ESRD, dialyzes 3 times weekly. Patient is compliant with dialysis and usually does not have large fluid gains between sessions. Last dialysis yesterday. Patient is not getting heparin with dialysis. No acute indication for SLOT KEY PERSON today and likely will plan for dialysis tomorrow. GI has been consulted. Further orders forthcoming as hospitalization evolves. Assessment and plan reviewed with Dr. Russo. HPI Consult Data Date of Consult: 02/08/25 HPI Narrative HPI Narrative: BINDU DUMONT, is a 69 M with past medical history significant for ESRD who dialyzes on a Thursday schedule at [facility], last dialyzed yesterday, presented emergency room today with complaints of black tarry stools for past few days. Patient admitted for further evaluation and treatment. Nephrology consulted in view of history of ESRD and for dialysis management. Patient denies any chest pain or shortness of breath. [facility] Medical History Carotid stenosis, right ESRD (end stage renal disease) on dialysis Acute anemia Black stool History of transcatheter aortic valve replacement (TAVR) Wears glasses History of steroid therapy History of renal disease Low iron Rheumatoid arthritis Back pain Migraine headache Dietary restriction History of diverticulitis History of ulceration Shortness of breath on exertion Lymphedema History of echocardiogram Cardiology follow-up encounter Hypertension Chronic renal failure Anemia DVT (deep venous thrombosis) End stage renal disease on dialysis Secondary hyperparathyroidism Generalized weakness Acute on chronic anemia Chronic anemia Acute upper GI bleed History of end stage renal disease History of renal dialysis Dialysis patient Hepatitis Smoker Bursitis Problem with dialysis access Rectal bleeding Subclavian aneurysm Kidney failure due to vascular disorder Cardiac disease Rheumatoid vasculitis Rheumatoid aortitis Home Medications ?Medication ?Instructions ?Recorded ?Last Taken ?Type vitamin B complex-vitamin C-folic 1 tab PO DAILY RENAL HEALTH 12/12/23 02/07/25 History acid 0.8 mg tablet (Nephro-Christiano) cyanocobalamin (vitamin B-12) 1,000 mcg PO DAILY supplement 01/12/24 02/08/25 History 1,000 mcg tablet (Vitamin B-12) acetaminophen 500 mg tablet 1,000 mg PO BID PAIN 12/02/24 02/08/25 History carvedilol 12.5 mg tablet 12.5 mg PO BID High bp 12/02/24 02/08/25 History coenzyme Q10 200 mg capsule (Co 200 mg PO DAILY suppliment 12/02/24 02/08/25 History Q-10) epoetin beta, methoxy peg See Rx Instructions subcut 12/02/24 02/04/25 History .COMPLEX PRN low blood counts sevelamer carbonate 800 mg tablet 800 mg PO TIDCM phosphate binder 12/27/24 02/07/25 History ascorbic acid (vitamin C) 500 mg 500 mg PO BID suppliment #60 tabs 12/29/24 01/19/25 Rx tablet pantoprazole 40 mg tablet,delayed 40 mg PO BID stomach #60 tabs 12/29/24 02/08/25 Rx release (Protonix) cholecalciferol (vitamin D3) 10 10 mcg PO 3XW suppliment 01/06/25 02/07/25 History mcg (400 unit) capsule sensitar 90 mg PO 3XW 01/06/25 02/07/25 History atorvastatin 40 mg tablet 40 mg PO QHS #90 tabs 01/16/25 02/07/25 Rx aspirin 81 mg chewable tablet 81 mg PO DAILY 01/19/25 01/19/25 History ferrous sulfate 325 mg (65 mg 325 mg PO .COMPLEX anemia 02/03/25 02/06/25 History iron) tablet losartan 25 mg tablet 25 mg PO BID heart 02/03/25 02/08/25 History Allergy/AdvReac Type Severity Reaction Status Date / Time No Known Allergies Allergy Verified 02/08/25 08:53 Family History Father Heart disease Atrial fibrillation Mother , 88 Heart disease Myocardial infarction Other Cancer Diabetes Surgical History History of cardiac catheterization Hx of colonoscopy with polypectomy History of esophagogastroduodenoscopy (EGD) Hx of arteriovenostomy for renal dialysis (~12/2019) Status post insertion of dialysis catheter (~11/2019) History of umbilical hernia s/p subclavian graft S/P knee surgery History of bicuspid aortic valve Social History household members: spouse housing: house Smoking Status: Light Smoker (<10/day) alcohol intake: never substance use type: does not use caffeine: Yes Type: coffee Number of servings: 2 ROS ROS Narrative As in HPI Physical Exam Narrative Alert and oriented x 3, no apparent stress S1, S2, RRR Lungs sound clear Abdomen soft, nontender No pitting edema AV fistula left arm positive thrill and bruit. Tape to cannulation sites Lab / Micro Data 02/08/25 09:23 02/08/25 09:23 Labs: Laboratory Results - last 24 hr 02/08/25 09:23: WBC 7.0, RBC 2.58 L, Hgb 8.3 L, Hct 26.2 L, MCV 101.6 H, MCH 32.2 H, MCHC 31.7 L, RDW Std Deviation 58.3 H, RDW Coeff of Brynn 15.6 H, Plt Count 166, MPV 11.4, Sodium 136, Potassium 3.7, Chloride 91 L, Carbon Dioxide 28.0, Anion Gap 17 H, BUN 50 H, Creatinine 5.61 H, Estim Creat Clear Calc 14.11 L, Est GFR (MDRD) Non-Af 10 L, BUN/Creatinine Ratio 9.0 L, Glucose 109 H, Lactic Acid 1.2, Calcium 9.1, Magnesium 2.3 H, Blood Type A POSITIVE, Antibody Screen NEGATIVE Micro: Microbiology 02/08/25 09:14 Stool Stool Occult Blood (LAMONTE) - Final Occult Blood Positive
[2025-02-08 16:12] LABS: Hematocrit 23.7 % (40-54); Hemoglobin 7.8 g/dL (13.0-16.5)
[2025-02-08] MEDS: 0.9% Saline Lock 10 ML Syringe IV (17:14)
[2025-02-08] MEDS: 0.9% Normal Saline (100mL Bag) 100 ML 15 ML IV (17:14)
[2025-02-08] MEDS: Pantoprazole Sodium 40 MG in 0.9% Normal Saline (100mL MB+) 100 ML 330 MG IV ×2 (17:14→21:46)
[2025-02-08 22:37] LABS: Hematocrit 24.4 % (40-54); Hemoglobin 7.7 g/dL (13.0-16.5)
[2025-02-09] VITALS (25 sets, daily range): BP systolic 120–215; BP diastolic 67–99; PULSE 14–78; RESP 14–18; TEMP 36.5–37.1; O2SAT 96–100; BMI 28.8; BMI 27.9; BMI 28.0
[2025-02-09 03:08] LABS: Absolute Lymphocyte Count 1.06 X10^3/uL (0.83-4.51); Basophil# 0.04 X10^3/uL; Basophil% 0.6 % (0-1); Eosinophil# 0.15 X10^3/uL; Eosinophils% 2.1 % (0-5); Hematocrit 21.2 % (40-54); Hemoglobin 6.8 g/dL (13.0-16.5); Lymphocyte # 1.06 X10^3/ul (0.83-4.51); Lymphocyte % 14.8 % (19-41); Mean Corp Hgb Conc 32.1 g/dL (32-36); Mean Corpuscular Hgb 32.2 pg (27.0-32.0); Mean Corpuscular Volume 100.5 fL (80-94); Mean Platelet Vol. 10.6 fl (6.2-12.0); Monocyte% 12.5 % (0-10); NRBC Flagged by Analyzer 0 % (0-5); Neutrophil # 5.01 X10^3/uL (2.7-7.7); Neutrophil % 69.7 % (47-70); Platelet Count 138 K/mm3 (150-450); RBC Distribution Width CV 15.5 % (11.6-14.6); RBC Distribution Width SD 57.2 fl (35.1-43.9); Red Blood Count 2.11 M/mm3 (4.6-6.2); White Blood Count 7.2 K/mm3 (4.4-11.0)
[2025-02-09 03:33] LABS: Anion Gap 16 (5-15); BUN 64 mg/dL (4-19); Carbon Dioxide 27.6 mmol/L (21.0-32.0); Chloride 93 mmol/L (98-108); EST Glomerular Filtration Rate 8 (>60); Estimated Creatinine Clearance 11.15 ml/min (50-250); Glucose 76 mg/dL (70-99); Phosphorus 5.7 mg/dL (2.7-4.5); Potassium 3.8 mmol/L (3.3-5.1); Sodium Level 136 mmol/L (133-145)
[2025-02-09] MEDS: PureFlow B 3K Dialysis Soln 1 BAG 6 BAG PF (07:30)
[2025-02-09] MEDS: 0.9% Normal Saline 1,000 ML IV.SOLN. 1000 ML OPERA.SITE (07:30)
--- NOTE | 2025-02-09 08:39 | PCM.PN.HOSP ---
Reason for Visit Reason for Visit: Diagnoses Anemia, unspecified (02/08/25) Gastrointestinal hemorrhage, unspecified (02/08/25) Objective Data Objective Data Vital Signs: Vital Signs Temp Pulse Resp BP Pulse Ox O2 Del Method 98.1 F 76 16 140/94 H 99 Room Air 02/09/25 08:30 02/09/25 08:30 02/09/25 08:30 02/09/25 08:30 02/09/25 08:30 02/09/25 08:30 Oxygen Delivery Method Room Air Weight: 201 lb 0.985 oz Body Mass Index (BMI) 28.8 Intake & Output: Intake and Output for Last 24 Hours 02/07/25 02/08/25 02/09/25 23:59 23:59 23:59 Intake Total 520 / 620 250 / 250 Balance 520 / 620 250 / 250 Lab / Micro Data 02/09/25 03:00 02/09/25 03:00 Labs: Laboratory Results - last 24 hr 02/08/25 09:23: WBC 7.0, RBC 2.58 L, Hgb 8.3 L, Hct 26.2 L, MCV 101.6 H, MCH 32.2 H, MCHC 31.7 L, RDW Std Deviation 58.3 H, RDW Coeff of Brynn 15.6 H, Plt Count 166, MPV 11.4, Sodium 136, Potassium 3.7, Chloride 91 L, Carbon Dioxide 28.0, Anion Gap 17 H, BUN 50 H, Creatinine 5.61 H, Estim Creat Clear Calc 14.11 L, Est GFR (MDRD) Non-Af 10 L, BUN/Creatinine Ratio 9.0 L, Glucose 109 H, Lactic Acid 1.2, Calcium 9.1, Magnesium 2.3 H, Blood Type A POSITIVE, Antibody Screen NEGATIVE 02/08/25 15:53: Hgb 7.8 L, Hct 23.7 L 02/08/25 22:25: Hgb 7.7 L, Hct 24.4 L 02/09/25 03:00: WBC 7.2, RBC 2.11 L, Hgb 6.8 L, Hct 21.2 L, MCV 100.5 H, MCH 32.2 H, MCHC 32.1, RDW Std Deviation 57.2 H, RDW Coeff of Brynn 15.5 H, Plt Count 138 L, MPV 10.6, Immature Gran % (Auto) 0.300, Neut % (Auto) 69.7, Lymph % (Auto) 14.8 L, Cecil % (Auto) 12.5 H, Eos % (Auto) 2.1, Baso % (Auto) 0.6, Absolute Neuts (auto) 5.0, Absolute Lymphs (auto) 1.06, Nucleated RBC % 0, Sodium 136, Potassium 3.8, Chloride 93 L, Carbon Dioxide 27.6, Anion Gap 16 H, BUN 64 H, Creatinine 7.10 H, Estim Creat Clear Calc 11.15 L, Est GFR (MDRD) Non-Af 8 L, BUN/Creatinine Ratio 9.0 L, Glucose 76, Calcium 9.0, Phosphorus 5.7 H, TSH 1.800 Micro: Microbiology 02/08/25 09:14 Stool Stool Occult Blood (LAMONTE) - Final Occult Blood Positive Physical Exam Narrative Seen and examined No acute issues. Patient dropped hemoglobin 6.8. Monitor PRBC ordered. No chest pain or shortness of breath. Getting hemodialysis Physical exam General: Alert, Oriented x3, Cooperative HEENT: Atraumatic, PERRLA, EOMI, Normocephalic Oral: Oral mucosa dry. No Gingival or Mucosal Lesions/ Ulcerations Neck: Supple, No JVD, Negative Carotid Bruits Chest wall/Lungs: Air entry diminished in bilateral lung bases. No crepitation/rhonchi Cardiovascular: Sinus rhythm, Normal S1, Normal S2, systolic murmur. Abdomen: Bowel Sounds Present, Soft, Non Tender, Non-Distended : No dysuria. No renal angle tenderness. No suprapubic tenderness. Extremities: Bilateral lower extremity lymphedema. Capillary Refill Less than 3 Seconds Skin: No rashes, No breakdown Musculoskeletal: No Tenderness to Palpation of Joints or Extremities Neurological: Cranial nerves II-XII grossly intact, DTR 2+/4. No acute focal neurological deficit. Psych/Mental Status: Flat affect. Assessment & Plan Assessment/Plan (1) Symptomatic anemia: (2) Acute gastrointestinal bleeding: PLAN: Plan 69-year-old gentleman was admitted with3 days history of black tarry stool. Has recurrent admission for GI bleed. Patient has increased weakness and fatigue. No abdominal pain. 1. Most likely acute upper GI bleed with severe anemia: Patient is being admitted in PCU. His hemoglobin is on baseline, hematocrit 26%. His H&H baseline stays around 9 g/28%. Stool for occult blood positive. GI consulted. Pantoprazole 40 mg IV every 12 hourly. -Patient has a history of bleeding ulcers and has had 4 peptic ulcers and angiodysplastic lesion cauterized in the past. Type and crossmatch ordered - 12/29/2024: Patient had EGD on 12/28: Impressions : - Normal esophagus. - A single bleeding angiodysplastic lesion in the stomach. Treated with a heater probe. - Normal examined duodenum. - Normal examined jejunum. Colonoscopy 01/20/2025: Diffuse diverticulosis in the sigmoid colon, sigmoid colon, DC, splenic flexure, TC and hepatic flexure and ascending colon. Examined portion of ileum normal. Impression likely diverticular bleed. 4/: Monitor PRBC ordered. H&H 6.8/21%. Posttransfusion H&H ordered. GI updated about drop in hemoglobin and evaluation for EGD. B12 level is high therefore we will discontinue cyanocobalamin. Anemia workup ordered 2. ESRD on HD: [employer] In[employer] consulted -Daily weights, I's and O's, renal Dialysis days are Thursday and Thursday. PT and OT ordered 02/09: Patient getting hemodialysis. On sevelamer 3. History of chronic heart failure with reduced ejection fraction: Twelve-lead EKG shows sinus rhythm, PAC, 84 bpm, LAD, chronic LBBB. -Patient's last echo 09/28/2024 with EF of 25% -Maintain heart failure core measures including intake and output, fluid restriction less than 1500 mL, daily weight monitoring, kidney and electrolytes monitoring. 4/3: Home medications, carvedilol, losartan, atorvastatin continued. Hold baby aspirin. 4. Hypertension: BP is borderline 98/65, 89/66 but most recent 116/75. Hold antihypertensive medications for now. 5. Chronic Tobacco use, smokes less than 10 cigarettes/day. -Advise cessation -Nicotine replacement offered 6 DVT prophylaxis, high risk: SCDs. Pharmacological prophylaxis contraindicated. Living will/advanced directive/end of life care: Patient does not have living will or advanced directive. His power of claims attorney for anything is his present in the ED. After discussion of benefits/risks procedures involved with full code, DNR CC arrest and DNR CC, the patient and his opted for full code. Patient does want artificial life support including intubation, tube feed, ventilator and/chest compression, central venous catheter, vasopressor and DC shock if needed Total time spent in [id number] encounter in discussion of advanced directive 17 minutes. Microbiology Past 72 Hours 02/08/25 09:14 Stool Stool Occult Blood (LAMONTE) - Final Occult Blood Positive Laboratory Results 02/08/25 09:23: WBC 7.0, RBC 2.58 L, Hgb 8.3 L, Hct 26.2 L, MCV 101.6 H, MCH 32.2 H, MCHC 31.7 L, RDW Std Deviation 58.3 H, RDW Coeff of Brynn 15.6 H, Plt Count 166, MPV 11.4, Sodium 136, Potassium 3.7, Chloride 91 L, Carbon Dioxide 28.0, Anion Gap 17 H, BUN 50 H, Creatinine 5.61 H, Estim Creat Clear Calc 14.11 L, Est GFR (MDRD) Non-Af 10 L, BUN/Creatinine Ratio 9.0 L, Glucose 109 H, Lactic Acid 1.2, Calcium 9.1, Magnesium 2.3 H, Blood Type A POSITIVE, Antibody Screen NEGATIVE 02/08/25 15:53: Hgb 7.8 L, Hct 23.7 L 02/08/25 22:25: Hgb 7.7 L, Hct 24.4 L 02/09/25 03:00: WBC 7.2, RBC 2.11 L, Hgb 6.8 L, Hct 21.2 L, MCV 100.5 H, MCH 32.2 H, MCHC 32.1, RDW Std Deviation 57.2 H, RDW Coeff of Brynn 15.5 H, Plt Count 138 L, MPV 10.6, Immature Gran % (Auto) 0.300, Neut % (Auto) 69.7, Lymph % (Auto) 14.8 L, Cecil % (Auto) 12.5 H, Eos % (Auto) 2.1, Baso % (Auto) 0.6, Absolute Neuts (auto) 5.0, Absolute Lymphs (auto) 1.06, Nucleated RBC % 0, Sodium 136, Potassium 3.8, Chloride 93 L, Carbon Dioxide 27.6, Anion Gap 16 H, BUN 64 H, Creatinine 7.10 H, Estim Creat Clear Calc 11.15 L, Est GFR (MDRD) Non-Af 8 L, BUN/Creatinine Ratio 9.0 L, Glucose 76, Calcium 9.0, Phosphorus 5.7 H, TSH 1.800 Charges/Coding Visit Charges Inpatient E&M: 20728 Subs Hosp L3
[2025-02-09] MEDS: Pantoprazole Sodium 40 MG in 0.9% Normal Saline (100mL MB+) 100 ML 330 MG IV ×2 (09:41→21:57)
[2025-02-09] MEDS: Acetaminophen 500 MG Tablet 1000 MG PO ×2 (09:41→21:56)
[2025-02-09] MEDS: Ascorbic Acid 500 MG Tablet PO ×2 (09:41→21:57)
--- NOTE | 2025-02-09 10:54 | PCM.PN.REN ---
Documented by User: HELEN Ga 02/09/25 10:56 Subjective Subjective Seen during dialysis. No complaints. No overnight events. Objective Data Objective Data Vital Signs: Vital Signs Temp Pulse Resp BP Pulse Ox O2 Del Method 97.9 F 71 17 132/86 H 99 Room Air 02/09/25 10:45 02/09/25 10:45 02/09/25 10:45 02/09/25 10:45 02/09/25 10:45 02/09/25 10:45 Oxygen Delivery Method Room Air Weight: 91.2 kg Body Mass Index (BMI) 28.8 Intake & Output: Intake and Output for Last 24 Hours 02/07/25 02/08/25 02/09/25 23:59 23:59 23:59 Intake Total 520 / 620 360 / 360 Balance 520 / 620 360 / 360 Lab / Micro Data 02/09/25 14:50 02/09/25 03:00 Labs: Laboratory Results - last 24 hr 02/08/25 09:14: Crossmatch See Detail 02/08/25 09:23: Magnesium 2.3 H 02/08/25 15:53: Hgb 7.8 L, Hct 23.7 L 02/08/25 22:25: Hgb 7.7 L, Hct 24.4 L 02/09/25 03:00: WBC 7.2, RBC 2.11 L, Hgb 6.8 L, Hct 21.2 L, MCV 100.5 H, MCH 32.2 H, MCHC 32.1, RDW Std Deviation 57.2 H, RDW Coeff of Brynn 15.5 H, Plt Count 138 L, MPV 10.6, Immature Gran % (Auto) 0.300, Neut % (Auto) 69.7, Lymph % (Auto) 14.8 L, [place] % (Auto) 12.5 H, Eos % (Auto) 2.1, Baso % (Auto) 0.6, Absolute Neuts (auto) 5.0, Absolute Lymphs (auto) 1.06, Nucleated RBC % 0, Sodium 136, Potassium 3.8, Chloride 93 L, Carbon Dioxide 27.6, Anion Gap 16 H, BUN 64 H, Creatinine 7.10 H, Estim Creat Clear Calc 11.15 L, Est GFR (MDRD) Non-Af 8 L, BUN/Creatinine Ratio 9.0 L, Glucose 76, Calcium 9.0, Phosphorus 5.7 H, TSH 1.800 Micro: Microbiology 02/08/25 09:14 Stool Stool Occult Blood (LAMONTE) - Final Occult Blood Positive Physical Exam Narrative Alert and oriented x 3, no apparent stress S1, S2, RRR Lungs sound clear Abdomen soft, nontender No pitting edema AV fistula left arm accessed for hemodialysis Assessment & Plan Assessment/Plan (1) ESRD (end stage renal disease): PLAN: Plan Patient has history of ESRD, dialyzes 3 times weekly. Patient is compliant with dialysis and usually does not have large fluid gains between sessions. While in hospital we will try to maintain Thursday dialysis schedule. Undergoing hemodialysis today over 4 hours on 2K bath with fluid removal as patient/blood pressure tolerates. Receiving PRBC during dialysis. GI consulted. Assessment and plan reviewed with Dr. Russo. Documented by User: Dr. Hanh Russo MD 02/09/25 21:09 Objective Data Lab / Micro Data 02/09/25 14:50 02/09/25 03:00 Assessment & Plan Assessment/Plan (1) ESRD (end stage renal disease): PLAN: Plan Patient has history of ESRD, dialyzes 3 times weekly. Patient is compliant with dialysis and usually does not have large fluid gains between sessions. While in hospital we will try to maintain Thursday dialysis schedule. Undergoing hemodialysis today over 4 hours on 2K bath with fluid removal as patient/blood pressure tolerates. Receiving PRBC during dialysis. GI consulted. Assessment and plan reviewed with Dr. Russo. Addendum dw EMBROIDERY ASSISTANT HD as per schedule GI on consult
[2025-02-09 11:18] LABS: Platelet Count 142 K/mm3 (150-450); RET-HE 32.7 pg (30-35); Reticulocyte Count 2.35 % (0.5-1.5)
--- NOTE | 2025-02-09 11:41 | CHAPLAIN ---
Type of Pastoral Visit _x__ Initial Visit ___ Follow-up Visit ___ On-call Visit ___ General Patient Visit ___ Spiritual Assessment ___ Family Conference ___ Bereavement ___ Rapid Response ___ Code Blue ___ Other (describe below) Pastoral Care Referral From _x__ Patient ___ Family ___ Nurse ___ Physician ___ Ward Maid ___ Drywall Sander ___ Other (describe below) Sacrament/Intervention _x__ Active listening ___ Anointing ___ Samaritan ___ Bereavement ___ Communion ___ Mee exploration ___ ___ Life review ___ Prayer ___ Reconciliation ___ Sacrament of Sick _x__ Supportive presence ___ Wedding ___ Other (describe below) Pastoral Comments patient has been seen several times recently in this hospital; pt has a new issue and is finishing up his dialysis at the time of this visit; pt gives report on what he has been facing and the therapies he is doing since his recent stroke; pt is encouraged that he is making good progress; pt has goals for the future and repeatedly said I have things to do yet; pt denies other concerns or needs but expresses thanks for the visit and support
--- NOTE | 2025-02-09 14:46 | CASEMGMT ---
REBECCA REDMOND chart review: Patient was admitted 01/19-01/21/25 for GI Bleed. See assessment from 12/27/24 and ED SW note from 02/08/25. Patient was discharged to home with resumption of ST at [facility], family support, outpatient HD, and follow-up plans in place. Patient returned to [facility] ED on 02/08/25 with complaint of GI Bleed with black tarry stools. Patient was admitted for GI bleed workup with GI consult and scopes planned for today. REBECCA REDMOND in to discuss readmission and needs at discharge, at bedside. Patient has been taking medications as prescribed and attending scheduled follow-up appts. Patient is compliant with outpatient HD and has been attending outpatient ST at [facility]. Patient and deny needs or help at discharge and plan is to discharge home with patient resuming outpatient ST. CM will continue to follow this patient and plan for a safe discharge.
[2025-02-09 15:05] LABS: Hematocrit 25.1 % (40-54)
[2025-02-09 15:20] LABS: Ferritin 71 ng/mL (37-417); Iron 32 ug/dL (65-175); Iron Binding Capacity,Total 261 ug/dL (250-450); Iron Binding Capacity,Unsat 229 ug/dL (228-428)
--- NOTE | 2025-02-09 16:37 | PRE.ANES_ITS ---
ASA Classification* ASA Classification ASA Classification: 3 Assessment & Plan Anesthesia* Anesthesia Assessment Anesthesia Assessment: Discussed sedation and/or anesthesia options, risks, benefits, and alternatives with patient/parents/legal guardian/POA. Questions invited. The patient/parents/legal guardian/POA seems to understand and agrees to proceed with anesthesia plan. Reviewed the physical assessment, medical history, allergy history and patient home medications list prior to surgery/procedure/anesthetic and documented any changes. Performed airway and anesthesia risk assessments. Anesthesia Type Anesthesia Type: MAC History Source History Obtained from:: Patient and Chart Anesthesia Focused Assessment* Temperature: 98.6 F Pulse Rate: 69 Blood Pressure: 138/89 Respiratory Rate: 16 Pulse Ox: 100 Oxygen Delivery Method: Room Air Airway Assessment Mouth opens: >3 cm Mallampati Score: III Teeth Condition: Chipped/Broken (Multiple broken teeth. Nothing loose at this time.) and Missing (Multiple missing teeth.) Neck Range of motion (ROM): Limited ROM (Somewhat decreased extension) Focused Labs Anesthesia Preop lab: CBC WBC 7.2 K/mm3 (4.4-11.0) 02/09/25 03:00 02/09/25 RBC 2.11 M/mm3 (4.6-6.2) L 02/09/25 03:00 02/09/25 Hgb 8.0 g/dL (13.0-16.5) L 02/09/25 14:50 02/09/25 Hct 25.1 % (40-54) L 02/09/25 14:50 02/09/25 Plt Count 138 K/mm3 (150-450) L 02/09/25 03:00 02/09/25 CHEMISTRY Potassium 3.8 mmol/L (3.3-5.1) 02/09/25 03:00 02/09/25 Sodium 136 mmol/L (133-145) 02/09/25 03:00 02/09/25 Magnesium 2.3 mg/dL (1.5-2.2) H 02/08/25 09:23 02/08/25 Phosphorus 5.7 mg/dL (2.7-4.5) H 02/09/25 03:00 02/09/25 BUN 64 mg/dL (4-19) H 02/09/25 03:00 02/09/25 Creatinine 7.10 mg/dL (0.70-1.20) H 02/09/25 03:00 Glucose 76 mg/dL (70-99) 02/09/25 03:00 02/09/25 TSH 1.800 uIU/mL (0.300-4.200) 02/09/25 03:00 04/01/31 COAG PT 15.0 SECONDS (11.7-14.9) H 01/20/25 06:18 01/07 03/03 Pre-Assessment Diagnosis/Proposed Procedure Planned Operative Procedure(s): Esophagogastroduodenoscopy with possible biopsy. Anesthesia History Anesthesia History - global risk management director: Anesthesia History - global risk management director Hx Hospitalization Yes: MULTIPLE TIMES IN 12/30/24 10:19 Any Problems With Anesthesia No 12/30/24 10:19 Cholinesterase deficiency No 12/30/24 10:19 You/Your Family Experience No 12/30/24 10:19 fever (hyperthermia) with Relationship Recent Exposure to Contagious No 02/09/25 16:12 Disease Does patient have nerve No 12/30/24 10:19 stimulator Patient instructed to have device shut off --Does patient have Pacemaker No 02/09/25 16:12 or ICD? When Was Last Pacemaker Check QUESTION #4 FULL TEXT: You/Your Family Experience fever (hyperthermia) with Anesthesia Last Oral Intake Last Oral intake: Last Oral Intake NPO since 0000 02/09/25 16:12 Meds taken in AM with sips of Yes 02/09/25 16:12 water? Meds patient instructed to take am of surgery Any additional information?: Yes NPO since: 00:00 Meds taken in AM with sips of water?: Yes PONV PONV - global risk management director: PONV - global risk management director Female HX of Motion Sickness HX of N/V After Surgery Non-Smoker Duration of Surgery greater than 60 minutes Number of Risk Factors PONV Score Height & Weight Height & Weight: Anesthesia: Height & Weight Height 5 ft 10 in 02/09/25 16:12 Weight: 88.5 kg 02/09/25 16:12 Body Mass Index (BMI) 28.0 02/09/25 16:12 Respiratory Assessment Respiratory Assessment - global risk management director: Respiratory Tract Infection Hx - global risk management director Hx Respiratory Tract Infection Yes: Patient is recovering 12/30/24 10:19 from a cold. Still some productive cough. STOP Sleep Apnea STOP Sleep Apnea - global risk management director: STOP Sleep Apnea - global risk management director Hx Hypertension Yes 02/09/25 14:27 Hx Sleep Apnea No 02/08/25 14:24 CPAP No 01/20/25 18:01 BIPAP Do you snore loudly (louder Yes 02/08/25 14:24 than talking or can be heard Do you often feel tired/ Yes 02/08/25 14:24 fatigued/ sleepy during daytime? Has anyone observed you stop No 02/08/25 14:24 breathing during sleep? STOP Results Positive 02/08/25 14:24 QUESTION #5 FULL TEXT : Do you snore loudly (louder than talking or can be heard through closed doors)? Tobacco Use History Tobacco Use History - global risk management director: Tobacco Use History - global risk management director Tobacco Use Cigarettes 01/09/25 16:45 Smoking Status Light Smoker (<10/day) 02/09/25 16:23 Hx Tobacco Use Yes 02/08/25 14:24 Years Smoking Packs Smoked per Day Smoking Cessation Date was within the last 15 years Hx Smoking Cessation Date Hx Smoking Cessation No 02/08/25 14:24 Counseling Hematologic Medial History Hematologic Hx - global risk management director: Hematologic Medical Hx - [employer] of [employer] Hx of Blood Transfusion Yes 02/08/25 14:24 Hx of Transfusion in last 3 No 02/08/25 14:24 Months Date of Last Transfusion (if within last 3 months) Ever experience any problems No 02/08/25 14:24 with transfusion(s)? Specify any problems Hx of Preganancy in last 3 N/A 02/08/25 14:24 Months Nurse Filling Out Transfusion CDANTONE 02/08/25 14:24 & Questions: Date: 02/08/25 02/08/25 14:24 Time: 14:39 02/08/25 14:24 Patient unable to answer at this time (ie. confused, unrespo /Reproduction History /Reproductive History - global risk management director: /Reproductive Hx- global risk management director Hx Now Gestational Age (in weeks): EDC: Hx Hx Para Hx Section SAB No 12/30/24 10:19 Active Medications Active Medications: Current Medications Generic Name Dose Route Start Last Admin Trade Name Freq PRN Reason Stop Dose Admin Acetaminophen 1,000 mg 02/09/25 10:00 02/09/25 09:41 Acetaminophen 500 Mg Tablet PO 1,000 mg BID DEBORAH Administration Ascorbic Acid 500 mg 02/09/25 10:00 02/09/25 09:41 Ascorbic Acid 500 Mg Tablet PO 500 mg BID DEBORAH Administration Atorvastatin Calcium 40 mg 02/09/25 22:00 Atorvastatin Calcium 40 Mg Tablet PO QHS DEBORAH Carvedilol 12.5 mg 02/09/25 17:00 Carvedilol 12.5 Mg Tablet PO BIDCM DEBORAH Protocol Ferrous Sulfate 325 mg 02/10/25 17:00 Ferrous Sulfate 325 Mg Tablet PO [id number] DEBORAH Hemodialysis Solution 6 bag 02/09/25 07:15 02/09/25 07:30 Pureflow B 3k Dialysis Soln 1 Bag PF 02/09/25 19:08 6 bag UD DEBORAH Administration Protocol Pantoprazole Sodium 40 mg/ 110 mls @ 330 mls/hr 02/08/25 14:33 02/09/25 10:21 Sodium Chloride IV Infused Q12 DEBORAH Infusion Sodium Chloride 100 mls @ 15 mls/hr 02/08/25 14:41 02/09/25 00:17 IV Infused .Q6H40M PRN Infusion Saline Flush Sodium Chloride 100 mls @ 15 mls/hr 02/08/25 14:41 IV .Q6H40M PRN Additional IVPB Infusion Losartan Potassium 25 mg 02/09/25 22:00 Losartan Potassium 25 Mg Tablet PO [email or web address] [facility] Protocol Losartan Potassium 25 mg 02/10/25 10:00 Losartan Potassium 25 Mg Tablet PO [id number] [facility] Protocol Sevelamer Carbonate 800 mg 02/09/25 12:00 02/09/25 12:34 Sevelamer Carbonate 800 Mg Tablet PO Not Given TIDCM DEBORAH Sodium Chloride 10 - 40 ml 02/08/25 14:41 02/08/25 17:14 0.9% Saline Lock 10 Ml Syringe IV 20 ml UD PRN Administration SALINE FLUSH Sodium Chloride 1,000 ml 02/09/25 07:10 02/09/25 07:30 0.9% Normal Saline 1,000 Ml Iv.Soln. OPERA.SITE 02/09/25 19:07 1,000 ml X1 DEBORAH Administration Sodium Chloride 200 ml 02/09/25 07:07 0.9% Normal Saline 1,000 Ml Iv.Soln. IV 02/09/25 19:07 X1 PRN to maintain SBP >90mmHg during Dialysis [facility] Medical History Carotid stenosis, right ESRD (end stage renal disease) on dialysis Acute anemia Black stool History of transcatheter aortic valve replacement (TAVR) Wears glasses History of steroid therapy History of renal disease Low iron Rheumatoid arthritis Back pain Migraine headache Dietary restriction History of diverticulitis History of ulceration Shortness of breath on exertion Lymphedema History of echocardiogram Cardiology follow-up encounter Hypertension Chronic renal failure Anemia DVT (deep venous thrombosis) End stage renal disease on dialysis Secondary hyperparathyroidism Generalized weakness Acute on chronic anemia Chronic anemia Acute upper GI bleed History of end stage renal disease History of renal dialysis Dialysis patient Hepatitis Smoker Bursitis Problem with dialysis access Rectal bleeding Subclavian aneurysm Kidney failure due to vascular disorder Cardiac disease Rheumatoid vasculitis Rheumatoid aortitis Home Medications ?Medication ?Instructions ?Recorded ?Last Taken ?Type vitamin B complex-vitamin C-folic 1 tab PO DAILY [facility] 12/12/23 02/07/25 History acid 0.8 mg tablet (Nephro-Christiano) cyanocobalamin (vitamin B-12) 1,000 mcg PO DAILY suppl ement 01/12/24 02/08/25 History 1,000 mcg tablet (Vitamin B-12) acetaminophen 500 mg tablet 1,000 mg PO BID PAIN 12/0202/08/25 History carvedilol 12.5 mg tablet 12.5 mg PO BID High bp 12/0202/08/25 History coenzyme Q10 200 mg capsule (Co 200 mg PO DAILY suppli ment 12/02/24 02/08/25 History Q-10) epoetin beta, methoxy peg See Rx Instructions subcut 0 12/02/24 02/04/25 History .COMPLEX PRN low blood counts sevelamer carbonate 800 mg tablet 800 mg PO TIDCM phos phate binder 12/27/24 02/07/25 History ascorbic acid (vitamin C) 500 mg 500 mg PO BID supplim ent #60 tabs 12/29/24 01/19/25 Rx tablet pantoprazole 40 mg tablet,delayed 40 mg PO BID stomach #60 tabs 12/29/24 02/08/25 Rx release (Protonix) cholecalciferol (vitamin D3) 10 10 mcg PO 3XW supplime nt 01/06/25 02/07/25 History mcg (400 unit) capsule sensitar 90 mg PO 3XW 01/06/25 History atorvastatin 40 mg tablet 40 mg PO QHS #90 tabs 02/07/25 Rx aspirin 81 mg chewable tablet 81 mg PO DAILY 01/19/25 01/19/25 History ferrous sulfate 325 mg (65 mg 325 mg PO .COMPLEX anemi a 02/03/25 02/06/25 History iron) tablet losartan 25 mg tablet 25 mg PO BID heart 02/03/25 02/08/25 History Allergy/AdvReac Type Severity Reaction Status Date / Time No Known Allergies Allergy Verified 02/08/25 08:53 Family History Father Heart disease Atrial fibrillation Mother , 88 Heart disease Myocardial infarction Other Cancer Diabetes Surgical History History of cardiac catheterization Hx of colonoscopy with polypectomy History of esophagogastroduodenoscopy (EGD) Hx of arteriovenostomy for renal dialysis (~12/2019) Status post insertion of dialysis catheter (~11/2019) History of umbilical hernia s/p subclavian graft S/P knee surgery History of bicuspid aortic valve Social History household members: spouse housing: house Smoking Status: Light Smoker (<10/day) alcohol intake: never substance use type: does not use caffeine: Yes Type: coffee Number of servings: 2 Review of Systems (Anesthesia) ROS Narrative System reviewed and no additional complaints, except as documented.
--- NOTE | 2025-02-09 17:37 | EX.PCM.CON.G ---
HPI Consult Data Date of Consult: 02/09/25 HPI Narrative Reason for Consultation: GI bleed HPI Narrative: BINDU DUMONT, is a 69 M with past medical history of recent ischemic stroke, with right-sided carotid stenosis essential hypertension; on losartan and carvedilol, overweight with BMI of 27.4 this admission, ESRD; on HD () with last dialysis yesterday, chronic anemia; primarily due to renal disease with superimposed BERTRAND on oral ferrous sulfate and epoetin beta, history of bicuspid aortic valve with insufficiency; s/p TAVR (04/2024), history of CAD; with patient in need of stent when he can tolerate aspirin, chronic systolic CHF; LVEF ~25% (09/2024), RA; with associated rheumatoid vasculitis and aortitis, history of subclavian aneurysm (~2014); s/p subclavian graft, history of RUE DVT due to aneurysm (~2014), hepatitis C positive; with genotype 1b without cirrhosis PCR RNA quant was 1 million with patient having completed Epclusa therapy x 12 weeks with subsequent PCR RNA quant continuing to be normal, history of diverticulitis, history of colonoscopy with polypectomy (2023), history of umbilical hernia, history of lower extremity lymphedema, chronic tobacco abuse, history of migraine headache, GERD with history of PUD causing for peptic ulcers cauterized in the past; on pantoprazole, OA; with history of knee surgery and chronic back pain who presents to the ED with concerns regarding 1 episode of bright red blood per rectum, mixed with stools He was recently admitted from December 27 to 2024 for concerns regarding upper GI bleeding and was found to have 1 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 At the time he was also planned for colonoscopy but the procedure could not be completed due to bad bowel preparation. Since his discharge he was readmitted for slurred speech and right facial droop and was found to have an ischemic stroke. Today at the time of presentation in the ED, his hemoglobin was 9.2 down from 10.7 on 01/08/2025, and WBC of 6.8, platelet of 192, BUN of 26, with a creatinine of 3.8, his blood pressure was 141/62, pulse 74, respiratory rate 14. He is being admitted for further management of his upper GI bleeding. He also recently underwent a TAVR procedure. [facility] Medical History Carotid stenosis, right ESRD (end stage renal disease) on dialysis Acute anemia Black stool History of transcatheter aortic valve replacement (TAVR) Wears glasses History of steroid therapy History of renal disease Low iron Rheumatoid arthritis Back pain Migraine headache Dietary restriction History of diverticulitis History of ulceration Shortness of breath on exertion Lymphedema History of echocardiogram Cardiology follow-up encounter Hypertension Chronic renal failure Anemia DVT (deep venous thrombosis) End stage renal disease on dialysis Secondary hyperparathyroidism Generalized weakness Acute on chronic anemia Chronic anemia Acute upper GI bleed History of end stage renal disease History of renal dialysis Dialysis patient Hepatitis Smoker Bursitis Problem with dialysis access Rectal bleeding Subclavian aneurysm Kidney failure due to vascular disorder Cardiac disease Rheumatoid vasculitis Rheumatoid aortitis Home Medications ?Medication ?Instructions ?Recorded ?Last Taken ?Type vitamin B complex-vitamin C-folic 1 tab PO DAILY RENAL HEALTH 12/12/23 02/07/25 History acid 0.8 mg tablet (Nephro-Christiano) cyanocobalamin (vitamin B-12) 1,000 mcg PO DAILY supplement 01/12/24 02/08/25 History 1,000 mcg tablet (Vitamin B-12) acetaminophen 500 mg tablet 1,000 mg PO BID PAIN 12/02/24 02/08/25 History carvedilol 12.5 mg tablet 12.5 mg PO BID High bp 12/02/24 02/08/25 History coenzyme Q10 200 mg capsule (Co 200 mg PO DAILY suppliment 12/02/24 02/08/25 History Q-10) epoetin beta, methoxy peg See Rx Instructions subcut 12/02/24 02/04/25 History .COMPLEX PRN low blood counts sevelamer carbonate 800 mg tablet 800 mg PO TIDCM phosphate binder 12/27/24 02/07/25 History ascorbic acid (vitamin C) 500 mg 500 mg PO BID suppliment #60 tabs 12/29/24 01/19/25 Rx tablet pantoprazole 40 mg tablet,delayed 40 mg PO BID stomach #60 tabs 12/29/24 02/08/25 Rx release (Protonix) cholecalciferol (vitamin D3) 10 10 mcg PO 3XW suppliment 01/06/25 02/07/25 History mcg (400 unit) capsule sensitar 90 mg PO 3XW 01/06/25 02/07/25 History atorvastatin 40 mg tablet 40 mg PO QHS #90 tabs 01/16/25 02/07/25 Rx aspirin 81 mg chewable tablet 81 mg PO DAILY 01/19/25 01/19/25 History ferrous sulfate 325 mg (65 mg 325 mg PO .COMPLEX anemia 02/03/25 02/06/25 History iron) tablet losartan 25 mg tablet 25 mg PO BID heart 02/03/25 02/08/25 History Allergy/AdvReac Type Severity Reaction Status Date / Time No Known Allergies Allergy Verified 02/08/25 08:53 Family History Father Heart disease Atrial fibrillation Mother , 88 Heart disease Myocardial infarction Other Cancer Diabetes Surgical History History of cardiac catheterization Hx of colonoscopy with polypectomy History of esophagogastroduodenoscopy (EGD) Hx of arteriovenostomy for renal dialysis (~12/2019) Status post insertion of dialysis catheter (~11/2019) History of umbilical hernia s/p subclavian graft S/P knee surgery History of bicuspid aortic valve Social History household members: spouse housing: house Smoking Status: Light Smoker (<10/day) alcohol intake: never substance use type: does not use caffeine: Yes Type: coffee Number of servings: 2 ROS ROS Narrative Constitutional: Reports fatigue and weakness. No fever. HEENT: Reports systems reviewed and no addt'l complaints, except as documented Respiratory/Chest: surgical scar right clavicular region for repair of right subclavian artery aneurysm. No acute shortness of breath or respiratory distress or wheezing. CVS: No chest pain. No pacemaker. Gastrointestinal: Denies coffee ground emesis, hematemesis or vomiting Genitourinary: On hemodialysis. Musculoskeletal: Chronic joint pain. Denies acute joint pain or limited range of motion. No acute injury Neurologic: Denies seizure-like symptoms. skin: Bilateral lymphedema. No ulcer. No rash Endocrinology: Reports systems reviewed and no addt'l complaints, except as documented Hematologic/Lymphatic: Reports systems reviewed and no addt'l complaints, except as documented Rest 14 ROS are negative except as mentioned in HPI Physical Exam Narrative Alert and oriented x 3, no apparent stress S1, S2, RRR Lungs sound clear Abdomen soft, nontender No pitting edema AV fistula left arm accessed for hemodialysis Lab / Micro Data 02/09/25 14:50 02/09/25 03:00 Labs: Laboratory Results - last 24 hr 02/08/25 09:14: Crossmatch See Detail 02/08/25 22:25: Hgb 7.7 L, Hct 24.4 L, Direct Antiglob Test NEG w/POLYSPECIFIC 02/09/25 03:00: WBC 7.2, RBC 2.11 L, Hgb 6.8 L, Hct 21.2 L, MCV 100.5 H, MCH 32.2 H, MCHC 32.1, RDW Std Deviation 57.2 H, RDW Coeff of Brynn 15.5 H, Plt Count 138 L, MPV 10.6, Immature Gran % (Auto) 0.300, Neut % (Auto) 69.7, Lymph % (Auto) 14.8 L, Carlton % (Auto) 12.5 H, Eos % (Auto) 2.1, Baso % (Auto) 0.6, Absolute Neuts (auto) 5.0, Absolute Lymphs (auto) 1.06, Nucleated RBC % 0, Sodium 136, Potassium 3.8, Chloride 93 L, Carbon Dioxide 27.6, Anion Gap 16 H, BUN 64 H, Creatinine 7.10 H, Estim Creat Clear Calc 11.15 L, Est GFR (MDRD) Non-Af 8 L, BUN/Creatinine Ratio 9.0 L, Glucose 76, Calcium 9.0, Phosphorus 5.7 H, TSH 1.800 02/09/25 11:14: Retic Count 2.35 H, Immature Retic Fraction 25.60 H, Retic Hgb Equivalent 32.7, Iron 32 L, TIBC 261, Iron Saturation 12.0, Unsaturated IBC 229, Ferritin 71 02/09/25 14:50: Hgb 8.0 L, Hct 25.1 L Assessment & Plan Assessment/Plan (1) Carotid stenosis, right: PLAN: Plan 69-year-old male with past medical history of coronary artery disease, aortic stenosis s/p TAVR, R ICA stenosis, ischemic stroke, peptic ulcer disease, stomach AVMs, ESRD on hemodialysis is admitted for another episode of upper GI bleeding. Patient's history is extremely complicated as he is having ischemic events as well as bleeding complications. The reason for his upper GI bleeding is likely related to AVMs, will need the decision for push enteroscopy plus colonoscopy. He was explained alternatives, risk and benefits include not withstanding bleeding, infection, sepsis, perforation, need for emergent urgent . He will have an ASA of 3. Charges/Coding Visit Charges Inpatient E&M: 89069 Init Hosp L3
--- NOTE | 2025-02-09 17:42 | OP.EGD_ITS ---
Patient Name: Barry Joe Procedure Date: 02/09/2025 5:15 PM Date of : 1955 Age: 69 Procedure: Upper GI endoscopy Indications: Iron deficiency anemia, Melena Providers: Cade Ross DO Medicines: Monitored Anesthesia Care Patient Profile: This is a 69 year old male. Refer to note in patient chart for documentation of history and physical. Patient has symptoms. His most recent colonoscopy for treatment of bleeding and EGD for treatment of bleeding. Complications: No immediate complications. Procedure: Pre-Anesthesia Assessment: - Prior to the procedure, a History and Physical was performed, and patient medications and allergies were reviewed. The patient is competent. The risks and benefits of the procedure and the sedation options and risks were discussed with the patient. All questions were answered and informed consent was obtained. Patient identification and proposed procedure were verified by the physician in the pre-procedure area. Mental Status Examination: alert and oriented. Airway Examination: normal oropharyngeal airway and neck mobility. Respiratory Examination: clear to auscultation. CV Examination: normal. Prophylactic Antibiotics: The patient does not require prophylactic antibiotics. Prior Anticoagulants: The patient has taken no anticoagulant or antiplatelet agents except for NSAID medication. ASA Grade Assessment: II - A patient with mild systemic disease. After reviewing the risks and benefits, the patient was deemed in satisfactory condition to undergo the procedure. The anesthesia plan was to use monitored anesthesia care (MAC). Immediately prior to administration of medications, the patient was re-assessed for adequacy to receive sedatives. The heart rate, respiratory rate, oxygen saturations, blood pressure, adequacy of pulmonary ventilation, and response to care were monitored throughout the procedure. The physical status of the patient was re-assessed after the procedure. After obtaining informed consent, the endoscope was passed under direct vision. Throughout the procedure, the patient's blood pressure, pulse, and oxygen saturations were monitored continuously. The colonoscope was introduced through the mouth, and advanced to the jejunum. Small bowel enteroscopy was deemed necessary. The upper GI endoscopy was accomplished without difficulty. The patient tolerated the procedure well. Scope In: 5:21:25 PM Scope Out: 5:31:07 PM Total Procedure Duration Time 0 hours 9 minutes 42 seconds Findings: The examined esophagus was normal. A small hiatal hernia was present. Three 5 mm angiodysplastic lesions with bleeding were found on the greater curvature of the stomach. Coagulation for hemostasis using heater probe was successful. Estimated blood loss was minimal. Three 6 mm angiodysplastic lesions with bleeding were found in the second portion of the duodenum and in the third portion of the duodenum. Coagulation for hemostasis using heater probe was successful. Estimated blood loss was minimal. One 5 mm angiodysplastic lesion without bleeding was found in the jejunum. Coagulation for destruction of remaining portion of lesion using heater probe was successful. Estimated blood loss was minimal. Impression: - Normal esophagus. - Small hiatal hernia. - Three bleeding angiodysplastic lesions in the stomach. Treated with a heater probe. - Three bleeding angiodysplastic lesions in the duodenum. Treated with a heater probe. - One non-bleeding angiodysplastic lesion in the jejunum. Treated with a heater probe. - No specimens collected. Recommendation: - Discharge patient to home. - Resume previous diet. - Continue present medications. -Hematology consult for Avastin therapy to prevent recurrent angiodysplastic lesions in the setting of a dialysis patient. Procedure Code(s): --- Professional --- 84350, Small intestinal endoscopy, enteroscopy beyond second portion of duodenum, not including ileum; with ablation of tumor(s), polyp(s), or other lesion(s) not amenable to removal by hot biopsy forceps, bipolar cautery or snare technique 23604, 59,51, Small intestinal endoscopy, enteroscopy beyond second portion of duodenum, not including ileum; with control of bleeding (eg, injection, bipolar cautery, unipolar cautery, laser, heater probe, stapler, plasma sample distributor) CPT copyright 2021 [employer]. All rights reserved. The codes documented in this report are preliminary and upon algorithm developer review may be revised to meet current compliance requirements. Cade Ross DO 02/09/2025 5:41:50 PM This report has been signed electronically. Number of Addenda: 0 Note Initiated On: 02/09/2025 5:15 PM
--- NOTE | 2025-02-09 17:42 | OP.CCLET_ITS ---
02/09/2025 Pavithra Henning Md Re : Upper GI endoscopy procedure for Barry Joe Dear Juvencio This procedure was performed on February. My impressions and recommendations are as follows: Impressions : - Normal esophagus. - Small hiatal hernia. - Three bleeding angiodysplastic lesions in the stomach. Treated with a heater probe. - Three bleeding angiodysplastic lesions in the duodenum. Treated with a heater probe. - One non-bleeding angiodysplastic lesion in the jejunum. Treated with a heater probe. - No specimens collected. Recommendations : - Discharge patient to home. - Resume previous diet. - Continue present medications. -Hematology consult for Avastin therapy to prevent recurrent angiodysplastic lesions in the setting of a dialysis patient. My findings are described in the full procedure note, which is enclosed. If I can be of further assistance, please feel free to contact me at . Sincerely, Cade Ross DO 02/09/2025 5:41:50 PM This report has been signed electronically.
--- NOTE | 2025-02-09 17:44 | PCM.POST.ANE ---
Anesthesia: Postop Eval I Current Vital Signs Temperature: 98.1 F Pulse Rate: 77 Blood Pressure: 120/67 Respiratory Rate: 16 Pulse Ox: 99 Oxygen Delivery Method: Room Air Assessment Airway patent: Yes Spontaneous unlabored respirations: Yes Mental status: Awake and Calm nausea: No Vomiting: No Anesthesia Complication: No Fluid Hydration Crystalloid volume administer (ml): 20 Total IV fluid infused: 20 Progress Note Anesthesia document: Postop Eval 1 completed: Yes
[2025-02-09] MEDS: Carvedilol 12.5 MG Tablet PO (18:12)
[2025-02-09] MEDS: SEVELAMER CARBONATE 800 MG TABLET PO (18:12)
--- NOTE | 2025-02-09 20:14 | PCM.POSTANE2 ---
Anesthesia Postop Eval I Sum Postop Eval Completion status Anesthesia document: Postop Eval 1 completed: Yes Anesthesia Postop Eval I Summary Anesthesia Postop Eval I Summary: Anesthesia Postop Eval I: Assessment Summary Airway patent Yes 02/09/25 17:45 Spontaneous unlabored Yes 02/09/25 17:45 respirations Mental status Awake,Calm 02/09/25 17:45 nausea No 02/09/25 17:45 Vomiting No 02/09/25 17:45 Anesthesia Postop Eval I: Fluid Summary Crystalloid volume administer 20 02/09/25 17:45 (ml) Colloids volume administered ( ml) Blood Product volume administered (ml) Total IV fluid infused 20 02/09/25 17:45 Anesthesia Postop Eval I: Summary Notes Anesthesia Complication No 02/09/25 17:45 Anesthesia Complication Comment: Post-operative progress note Anesthesia: Postop Eval II Evaluation Mental status: Awake and Calm Pain Level: 0 nausea: No Vomiting: No Complications Anesthesia Complication: No
[2025-02-09] MEDS: Atorvastatin Calcium 40 MG Tablet PO (21:56)
[2025-02-09] MEDS: Losartan Potassium 25 MG Tablet PO (21:56)
[2025-02-10 03:45] VITALS: BP 132/85; PULSE 74; RESP 16; TEMP 36.4; O2SAT 100
[2025-02-10 05:59] LABS: Absolute Lymphocyte Count 0.76 X10^3/uL (0.83-4.51); Absolute Neutrophil Count 3.6 X10^3/uL (2.0-7.7); Basophil# 0.04 X10^3/uL; Basophil% 0.7 % (0-1); Eosinophil# 0.18 X10^3/uL; Eosinophils% 3.3 % (0-5); Hematocrit 24.7 % (40-54); Hemoglobin 7.8 g/dL (13.0-16.5); Lymphocyte # 0.76 X10^3/ul (0.83-4.51); Lymphocyte % 13.9 % (19-41); Mean Corp Hgb Conc 31.6 g/dL (32-36); Mean Corpuscular Hgb 31.7 pg (27.0-32.0); Mean Corpuscular Volume 100.4 fL (80-94); Mean Platelet Vol. 11.9 fl (6.2-12.0); Monocyte# 0.82 X10^3/uL; NRBC Flagged by Analyzer 0 % (0-5); Neutrophil # 3.62 X10^3/uL (2.7-7.7); Neutrophil % 66.5 % (47-70); Platelet Count 139 K/mm3 (150-450); RBC Distribution Width SD 58.8 fl (35.1-43.9); Red Blood Count 2.46 M/mm3 (4.6-6.2); White Blood Count 5.5 K/mm3 (4.4-11.0)
[2025-02-10 06:43] LABS: Anion Gap 15 (5-15); BUN 49 mg/dL (4-19); BUN/Creat Ratio 8.1 RATIO (10-20); Calcium,Total 9.2 mg/dL (7.6-11.0); Carbon Dioxide 24.7 mmol/L (21.0-32.0); Chloride 98 mmol/L (98-108); Creatinine, Serum 6.07 mg/dL (0.70-1.20); EST Glomerular Filtration Rate 9 (>60); Estimated Creatinine Clearance 12.87 ml/min (50-250); Glucose 101 mg/dL (70-99); Sodium Level 137 mmol/L (133-145)
[2025-02-10 08:09] LABS: Haptoglobin 93 mg/dL (32-363); Transferrin 220 mg/dL (177-329)
--- NOTE | 2025-02-10 08:37 | PN.HOSP_ITS ---
Reason for Visit Reason for Visit: Diagnoses Anemia, unspecified (02/08/25) Occlusion and stenosis of right carotid artery (02/08/25) Gastrointestinal hemorrhage, unspecified (02/08/25) End stage renal disease (02/08/25) Objective Data Objective Data Vital Signs: Vital Signs Temp Pulse Resp BP Pulse Ox O2 Del Method 97.5 F L 74 16 132/85 H 100 Room Air 02/10/25 03:45 02/10/25 03:45 02/10/25 03:45 02/10/25 03:45 02/10/25 03:45 02/10/25 08:31 Oxygen Delivery Method Room Air Weight: 195 lb 1.745 oz Body Mass Index (BMI) 28.0 Intake & Output: Intake and Output for Last 24 Hours 02/08/25 02/09/25 02/10/25 23:59 23:59 23:59 Intake Total 520 / 620 470 / 470 Output Total 2720 / 2720 Balance 520 / 620 -2250 / -2250 Lab / Micro Data 02/10/25 04:54 02/10/25 04:54 Labs: Laboratory Results - last 24 hr 02/08/25 09:14: Crossmatch See Detail 02/08/25 22:25: Direct Antiglob Test NEG w/POLYSPECIFIC 02/09/25 11:14: Retic Count 2.35 H, Immature Retic Fraction 25.60 H, Retic Hgb Equivalent 32.7, Haptoglobin 93, Iron 32 L, TIBC 261, Iron Saturation 12.0, Unsaturated IBC 229, Transferrin 220, Ferritin 71 02/09/25 14:50: Hgb 8.0 L, Hct 25.1 L 02/10/25 04:54: WBC 5.5, RBC 2.46 L, Hgb 7.8 L, Hct 24.7 L, MCV 100.4 H, MCH 31.7, MCHC 31.6 L, RDW Std Deviation 58.8 H, RDW Coeff of Brynn 16.0 H, Plt Count 139 L, MPV 11.9, Immature Gran % (Auto) 0.600, Neut % (Auto) 66.5, Lymph % (Auto) 13.9 L, [place] % (Auto) 15.0 H, Eos % (Auto) 3.3, Baso % (Auto) 0.7, Absolute Neuts (auto) 3.6, Absolute Lymphs (auto) 0.76 L, Nucleated RBC % 0, Sodium 137, Potassium 4.0, Chloride 98, Carbon Dioxide 24.7, Anion Gap 15, BUN 49 H, Creatinine 6.07 H, Estim Creat Clear Calc 12.87 L, Est GFR (MDRD) Non-Af 9 L, BUN/Creatinine Ratio 8.1 L, Glucose 101 H, Calcium 9.2 Micro: Microbiology 02/08/25 09:14 Stool Stool Occult Blood (LAMONTE) - Final Occult Blood Positive Physical Exam Narrative Seen and examined No acute issues. Patient dropped hemoglobin 6.8. Monitor PRBC ordered. No chest pain or shortness of breath. Getting hemodialysis Physical exam General: Alert, Oriented x3, Cooperative HEENT: Atraumatic, PERRLA, EOMI, Normocephalic Oral: Oral mucosa dry. No Gingival or Mucosal Lesions/ Ulcerations Neck: Supple, No JVD, Negative Carotid Bruits Chest wall/Lungs: Air entry diminished in bilateral lung bases. No crepitation/rhonchi Cardiovascular: Sinus rhythm, Normal S1, Normal S2, systolic murmur. Abdomen: Bowel Sounds Present, Soft, Non Tender, Non-Distended : No dysuria. No renal angle tenderness. No suprapubic tenderness. Extremities: Bilateral lower extremity lymphedema. Capillary Refill Less than 3 Seconds Skin: No rashes, No breakdown Musculoskeletal: No Tenderness to Palpation of Joints or Extremities Neurological: Cranial nerves II-XII grossly intact, DTR 2+/4. No acute focal neurological deficit. Psych/Mental Status: Flat affect. Assessment & Plan Assessment/Plan (1) Symptomatic anemia: (2) Acute gastrointestinal bleeding: PLAN: Plan 69-year-old gentleman was admitted with3 days history of black tarry stool. Has recurrent admission for GI bleed. Patient has increased weakness and fatigue. No abdominal pain. 1. Most likely acute upper GI bleed with severe anemia: Patient is being admitted in PCU. His hemoglobin is on baseline, hematocrit 26%. His H&H baseline stays around 9 g/28%. Stool for occult blood positive. GI consulted. Pantoprazole 40 mg IV every 12 hourly. -Patient has a history of bleeding ulcers and has had 4 peptic ulcers and angiodysplastic lesion cauterized in the past. Type and crossmatch ordered EGD 02/11/2020 Impressions : - Normal esophagus. - Small hiatal hernia. - Three bleeding angiodysplastic lesions in the stomach. Treated with a heater probe. - Three bleeding angiodysplastic lesions in the duodenum. Treated with a heater probe. - One non-bleeding angiodysplastic lesion in the jejunum. Treated with a heater probe. - No specimens collected. Was recommended hematology consult for Avastin therapy to prevent recurrent angiodysplastic lesions in dialysis patient - 12/29/2024: Patient had EGD on 12/28: Impressions : - Normal esophagus. - A single bleeding angiodysplastic lesion in the stomach. Treated with a heater probe. - Normal examined duodenum. - Normal examined jejunum. Colonoscopy 01/20/2025: Diffuse diverticulosis in the sigmoid colon, sigmoid colon, DC, splenic flexure, TC and hepatic flexure and ascending colon. Examined portion of ileum normal. Impression likely diverticular bleed. 02/09: Monitor PRBC ordered. H&H 6.8/21%. Posttransfusion H&H ordered. GI updated about drop in hemoglobin and evaluation for EGD. B12 level is high therefore we will discontinue cyanocobalamin. Anemia workup ordered 2. ESRD on HD: Building Rental Manager consulted -Daily weights, I's and O's, renal Dialysis days are Thursday and Thursday. PT and OT ordered 02/09: Patient getting hemodialysis. On sevelamer 3. History of chronic heart failure with reduced ejection fraction: Twelve-lead EKG shows sinus rhythm, PAC, 84 bpm, LAD, chronic LBBB. -Patient's last echo 09/28/2024 with EF of 25% -Maintain heart failure core measures including intake and output, fluid restriction less than 1500 mL, daily weight monitoring, kidney and electrolytes monitoring. 4/3: Home medications, carvedilol, losartan, atorvastatin continued. Hold baby aspirin. 4. Hypertension: BP is borderline 98/65, 89/66 but most recent 116/75. Hold antihypertensive medications for now. 5. Chronic Tobacco use, smokes less than 10 cigarettes/day. -Advise cessation -Nicotine replacement offered 6 DVT prophylaxis, high risk: SCDs. Pharmacological prophylaxis contraindicated. Living will/advanced directive/end of life care: Patient does not have living will or advanced directive. His power of finishing trimmer for anything is his present in the ED. After discussion of benefits/risks procedures involved with full code, DNR CC arrest and DNR CC, the patient and his opted for full code. Patient does want artificial life support including intubation, tube feed, ventilator and/chest compression, central venous catheter, vasopressor and DC shock if needed Total time spent in [id number] encounter in discussion of advanced directive 17 minutes. Microbiology Past 72 Hours 02/08/25 09:14 Stool Stool Occult Blood (LAMONTE) - Final Occult Blood Positive Laboratory Results 02/08/25 09:23: WBC 7.0, RBC 2.58 L, Hgb 8.3 L, Hct 26.2 L, MCV 101.6 H, MCH 32.2 H, MCHC 31.7 L, RDW Std Deviation 58.3 H, RDW Coeff of Brynn 15.6 H, Plt Count 166, MPV 11.4, Sodium 136, Potassium 3.7, Chloride 91 L, Carbon Dioxide 28.0, Anion Gap 17 H, BUN 50 H, Creatinine 5.61 H, Estim Creat Clear Calc 14.11 L, Est GFR (MDRD) Non-Af 10 L, BUN/Creatinine Ratio 9.0 L, Glucose 109 H, Lactic Acid 1.2, Calcium 9.1, Magnesium 2.3 H, Blood Type A POSITIVE, Antibody Screen NEGATIVE 02/08/25 15:53: Hgb 7.8 L, Hct 23.7 L 02/08/25 22:25: Hgb 7.7 L, Hct 24.4 L 02/09/25 03:00: WBC 7.2, RBC 2.11 L, Hgb 6.8 L, Hct 21.2 L, MCV 100.5 H, MCH 32.2 H, MCHC 32.1, RDW Std Deviation 57.2 H, RDW Coeff of Brynn 15.5 H, Plt Count 138 L, MPV 10.6, Immature Gran % (Auto) 0.300, Neut % (Auto) 69.7, Lymph % (Auto) 14.8 L, [place] % (Auto) 12.5 H, Eos % (Auto) 2.1, Baso % (Auto) 0.6, Absolute Neuts (auto) 5.0, Absolute Lymphs (auto) 1.06, Nucleated RBC % 0, Sodium 136, Potassium 3.8, Chloride 93 L, Carbon Dioxide 27.6, Anion Gap 16 H, B UN 64 H, Creatinine 7.10 H, Estim Creat Clear Calc 11.15 L, Est GFR (MDRD) Non- Af 8 L, BUN/Creatinine Ratio 9.0 L, Glucose 76, Calcium 9.0, Phosphorus 5.7 H, TSH 1.800
--- NOTE | 2025-02-10 09:22 | PN.RENAL_ITS ---
Subjective Subjective No overnight events. Objective Data Objective Data Vital Signs: Vital Signs Temp Pulse Resp BP Pulse Ox O2 Del Method 97.5 F L 74 16 132/85 H 100 Room Air 02/10/25 03:45 02/10/25 03:45 02/10/25 03:45 02/10/25 03:45 02/10/25 03:45 02/10/25 08:31 Oxygen Delivery Method Room Air Weight: 88.5 kg Body Mass Index (BMI) 28.0 Intake & Output: Intake and Output for Last 24 Hours 02/08/25 02/09/25 02/10/25 23:59 23:59 23:59 Intake Total 520 / 620 470 / 470 Output Total 2720 / 2720 Balance 520 / 620 -2250 / -2250 Lab / Micro Data 02/10/25 04:54 02/10/25 04:54 Labs: Laboratory Results - last 24 hr 02/08/25 09:14: Crossmatch See Detail 02/08/25 22:25: Direct Antiglob Test NEG w/POLYSPECIFIC 02/09/25 11:14: Retic Count 2.35 H, Immature Retic Fraction 25.60 H, Retic Hgb Equivalent 32.7, Haptoglobin 93, Iron 32 L, TIBC 261, Iron Saturation 12.0, Unsaturated IBC 229, Transferrin 220, Ferritin 71 02/09/25 14:50: Hgb 8.0 L, Hct 25.1 L 02/10/25 04:54: WBC 5.5, RBC 2.46 L, Hgb 7.8 L, Hct 24.7 L, MCV 100.4 H, MCH 31.7, MCHC 31.6 L, RDW Std Deviation 58.8 H, RDW Coeff of Brynn 16.0 H, Plt Count 139 L, MPV 11.9, Immature Gran % (Auto) 0.600, Neut % (Auto) 66.5, Lymph % (Auto) 13.9 L, [place] % (Auto) 15.0 H, Eos % (Auto) 3.3, Baso % (Auto) 0.7, Absolute Neuts (auto) 3.6, Absolute Lymphs (auto) 0.76 L, Nucleated RBC % 0, Sodium 137, Potassium 4.0, Chloride 98, Carbon Dioxide 24.7, Anion Gap 15, BUN 49 H, Creatinine 6.07 H, Estim Creat Clear Calc 12.87 L, Est GFR (MDRD) Non-Af 9 L, BUN/Creatinine Ratio 8.1 L, Glucose 101 H, Calcium 9.2 Micro: Microbiology 02/08/25 09:14 Stool Stool Occult Blood (LAMONTE) - Final Occult Blood Positive Physical Exam Narrative Alert and oriented x 3, no apparent stress S1, S2, RRR Lungs sound clear Abdomen soft, nontender No pitting edema AV fistula left arm Assessment & Plan Assessment/Plan (1) ESRD (end stage renal disease): PLAN: Plan Patient has history of ESRD, dialyzes 3 times weekly. Patient tolerated dialysis yesterday. No acute indication for SUPERVISOR TYPE DISK QUALITY CONTROL today. Next dialysis tomorrow. Assessment and plan reviewed with Dr. Russo.
[2025-02-10 09:35] VITALS: BP 138/100; PULSE 69; RESP 18; TEMP 36.5; O2SAT 100
[2025-02-10] MEDS: Pantoprazole Sodium 40 MG in 0.9% Normal Saline (100mL MB+) 100 ML 330 MG IV (09:41)
[2025-02-10] MEDS: Acetaminophen 500 MG Tablet 1000 MG PO (09:43)
[2025-02-10] MEDS: Losartan Potassium 25 MG Tablet PO (09:43)
[2025-02-10] MEDS: Carvedilol 12.5 MG Tablet PO (09:43)
[2025-02-10] MEDS: Ascorbic Acid 500 MG Tablet PO (09:43)
[2025-02-10] MEDS: SEVELAMER CARBONATE 800 MG TABLET PO ×2 (09:44→12:11)
[2025-02-10] MEDS: 0.9% Saline Lock 10 ML Syringe IV (09:45)
--- NOTE | 2025-02-10 09:55 | CASEMGMT ---
RN CM NOTE: Per Dr Calvert, pt to discharge home today. Call received from nurse Brenda @ [facility]. She was made plan is for pt to discharge today. Gordon JEROME RN CM
--- NOTE | 2025-02-10 10:07 | DCINST_ITS ---
Discharge Instructions Diet Discharge Diet: Renal Diet DC O2, CPAP, BIPAP needs Home O2 Discharge instructions: No Dressing / Incision Discharge Activity: Return to Normal Activity Weight Bearing Status: Weight bearing as tolerated Dressing / Incision Call your doctor if you observe: Fever of 101 or Higher, Coldness, Increased Pain, Numbness or Tingling, Change in Color, Inability to urinate, Inability to have a bowel movement, Shortness of breath, Dizziness, Fainting spells, Swelling in the ankles, Chest pain, Prolonged hiccupping, Increased palpitations (irregular heartbeat) and Calf discomfort Follow Up Care When: IN 2 WEEKS Test Results: Test results from this visit will be discussed in further detail at your follow- up appointment, if applicable. Discharge Plan Admission Admit Date/Time: 02/08/25 10:55 Primary Reason for Your Visit: Upper GI bleed, angiodysplastic lesion. Attending Provider: Kian Calvert Primary Care Provider: Pavithra Henning Consulting Providers: Hanh Russo Discharge Orders/Prescriptions Prescriptions: Continued carvedilol 12.5 mg tablet 12.5 mg PO BID Rx Instructions: Does not take on Tuesdays, , and Saturdays due to dialysis coenzyme Q10 [Co Q-10] 200 mg capsule 200 mg PO DAILY epoetin beta, methoxy peg [Mircera] See Rx Instructions subcut .COMPLEX PRN (Reason: low blood counts) Patient Comments: GETS AT [facility]IS CENTER Rx Instructions: only in dialysis subcutaneously PRN; administered by dialysis infusion cholecalciferol (vitamin D3) 10 mcg (400 unit) capsule 10 mcg PO 3XW Patient Comments: GETS AT DIALYSIS CENTER Rx Instructions: On dialysis day. Tu, car, Sat sensitar 90 mg PO 3XW Patient Comments: GETS AT [facility] Rx Instructions: Dialysis days. Tue, car, sat ferrous sulfate 325 mg (65 mg iron) tablet 325 mg PO .COMPLEX Patient Comments: TAKES AT DINNER TIME Rx Instructions: 325 mg orally Thursday, , and Thu; acetaminophen 500 mg tablet 1,000 mg PO BID Nephro-Christiano 0.8 mg tablet 1 tab PO DAILY Patient Comments: TAKES IN AM ON THURSDAY, THURSDAY, THURSDAY, AND THURSDAY. TAKES AT DINNER TIME ON THURSDAY, THURSDAY, AND THURSDAY. cyanocobalamin (vitamin B-12) [Vitamin B-12] 1,000 mcg tablet 1,000 mcg PO DAILY sevelamer carbonate 800 mg tablet 800 mg PO TIDCM ascorbic acid (vitamin C) 500 mg tablet 500 mg PO BID Qty: 60 2RF pantoprazole [Protonix] 40 mg tablet,delayed release (DR/EC) 40 mg PO BID 30 Days Qty: 60 1RF losartan 25 mg tablet 25 mg PO BID Rx Instructions: does not take am dose on dialysis days sat atorvastatin 40 mg tablet 40 mg PO QHS Qty: 90 3RF Held aspirin 81 mg Tablet,Chewable 81 mg PO DAILY Hold Instructions: Hold for 5 days Patient Comments: TAKES AT DINNER TIME Referrals / Follow Up: Pavithra Henning MD [Primary Care Provider] - Sean Mera MD [Med Staff - Active Staff] - 02/21/25 9:00 am (The appointment will be in the [facility]patient [facility], please arrive 15 minutes before your scheduled appointment. ) Bekah Washington MD [Non-Staff] - Yocasta Winkler NP-C [Med Staff - Adv Practice Prof] - Within 1 Month Disposition Disposition (needs filled in before D/C Order can be placed): Home, Self Care
[2025-02-10 11:11] VITALS: BP 138/100; PULSE 69; RESP 18; TEMP 36.5; O2SAT 100
--- NOTE | 2025-02-10 11:29 | PCM.DC.SUM ---
Providers Date of Admission: 02/08/25 Date of Discharge: 02/10/25 Primary Care Physician: Dr. Pavithra Henning MD Consultations 02/08/25 14:33 Consult: Gastroenterology Routine Consulting Provider: [facility] Reason for Consult: GI bleed EMERGENT Consult: No Notified: Yes Date Notified: 02/08/25 Time Notified: 10:56 Method of Notification: Text Consult: Nephrology Routine Consulting Provider: Hanh Russo Reason for Consult: esrd on hd EMERGENT Consult: No Notified: Yes Date Notified: 02/08/25 Time Notified: 11:04 Method of Notification: Text Reason For Visit: GI Bleed Diagnosis Discharge Diagnosis (1) ESRD (end stage renal disease): Status: Acute Code(s): N18.6 - End stage renal disease Plan 69-year-old gentleman was admitted with3 days history of black tarry stool. Has recurrent admission for GI bleed. Patient has increased weakness and fatigue. No abdominal pain. 1. Most likely acute upper GI bleed with severe anemia: Patient is being admitted in PCU. His hemoglobin is on baseline, hematocrit 26%. His H&H baseline stays around 9 g/28%. Stool for occult blood positive. GI consulted. Pantoprazole 40 mg IV every 12 hourly. -Patient has a history of bleeding ulcers and has had 4 peptic ulcers and angiodysplastic lesion cauterized in the past. Type and crossmatch ordered EGD 02/11/2020 Impressions : - Normal esophagus. - Small hiatal hernia. - Three bleeding angiodysplastic lesions in the stomach. Treated with a heater probe. - Three bleeding angiodysplastic lesions in the duodenum. Treated with a heater probe. - One non-bleeding angiodysplastic lesion in the jejunum. Treated with a heater probe. - No specimens collected. Was recommended hematology consult for Avastin therapy to prevent recurrent angiodysplastic lesions in dialysis patient. I talked to oncologist Alma CORONADO and agree with following in office in [address] Mera will follow up on 02/21/2025. Clinical information of EGD, angiodysplastic lesions and the indication of a Avastin discussed. Hold baby aspirin for 5 days. Prescription for pantoprazole 40 mg twice daily given. - 12/29/2024: Patient had EGD on 12/28: Impressions : - Normal esophagus. - A single bleeding angiodysplastic lesion in the stomach. Treated with a heater probe. - Normal examined duodenum. - Normal examined jejunum. Colonoscopy 01/20/2025: Diffuse diverticulosis in the sigmoid colon, sigmoid colon, DC, splenic flexure, TC and hepatic flexure and ascending colon. Examined portion of ileum normal. Impression likely diverticular bleed. 4/: Monitor PRBC ordered. H&H 6.8/21%. Posttransfusion H&H ordered. GI updated about drop in hemoglobin and evaluation for EGD. B12 level is high therefore we will discontinue cyanocobalamin. Anemia workup ordered 02/10: Patient on ascorbic acid and iron supplement. Follow-up in hematology office. 2. ESRD on HD: [employer] Loan Collections Supervisor consulted -Daily weights, I's and O's, renal Dialysis days are Thursday and Thursday. PT and OT ordered 02/09: Patient getting hemodialysis. On sevelamer 3. History of chronic heart failure with reduced ejection fraction: Twelve-lead EKG shows sinus rhythm, PAC, 84 bpm, LAD, chronic LBBB. -Patient's last echo 09/28/2024 with EF of 25% -Maintain heart failure core measures including intake and output, fluid restriction less than 1500 mL, daily weight monitoring, kidney and electrolytes monitoring. 4/3: Home medications, carvedilol, losartan, atorvastatin continued. Hold baby aspirin. 4. Hypertension: BP is borderline 98/65, 89/66 but most recent 116/75. Hold antihypertensive medications for now. 5. Chronic Tobacco use, smokes less than 10 cigarettes/day. -Advise cessation -Nicotine replacement offered 6 DVT prophylaxis, high risk: SCDs. Pharmacological prophylaxis contraindicated. Discharge medication reconciliation done. Discharge follow-up instructions completed. Discharge process discussed with the patient and all questions were answered to patient's satisfaction. Follow with PCP in 1 to 2 weeks Total time spent, exact 35 minutes on discharge meds reconciliation, examination, coordination of care with nurses and ancillary staff, review of imaging and blood test and discussion with the patient on follow-up instructions. Living will/advanced directive/end of life care: Patient does not have living will or advanced directive. His power of commercial real estate attorney for anything is his present in the ED. After discussion of benefits/risks procedures involved with full code, DNR CC arrest and DNR CC, the patient and his opted for full code. Patient does want artificial life support including intubation, tube feed, ventilator and/chest compression, central venous catheter, vasopressor and DC shock if needed Microbiology Past 72 Hours 02/08/25 09:14 Stool Stool Occult Blood (LAMONTE) - Final Occult Blood Positive Laboratory Results 02/08/25 09:23: WBC 7.0, RBC 2.58 L, Hgb 8.3 L, Hct 26.2 L, MCV 101.6 H, MCH 32.2 H, MCHC 31.7 L, RDW Std Deviation 58.3 H, RDW Coeff of Brynn 15.6 H, Plt Count 166, MPV 11.4, Sodium 136, Potassium 3.7, Chloride 91 L, Carbon Dioxide 28.0, Anion Gap 17 H, BUN 50 H, Creatinine 5.61 H, Estim Creat Clear Calc 14.11 L, Est GFR (MDRD) Non-Af 10 L, BUN/Creatinine Ratio 9.0 L, Glucose 109 H, Lactic Acid 1.2, Calcium 9.1, Magnesium 2.3 H, Blood Type A POSITIVE, Antibody Screen NEGATIVE 02/08/25 15:53: Hgb 7.8 L, Hct 23.7 L 02/08/25 22:25: Hgb 7.7 L, Hct 24.4 L 02/09/25 03:00: WBC 7.2, RBC 2.11 L, Hgb 6.8 L, Hct 21.2 L, MCV 100.5 H, MCH 32.2 H, MCHC 32.1, RDW Std Deviation 57.2 H, RDW Coeff of Brynn 15.5 H, Plt Count 138 L, MPV 10.6, Immature Gran % (Auto) 0.300, Neut % (Auto) 69.7, Lymph % (Auto) 14.8 L, Furn[place] % (Auto) 12.5 H, Eos % (Auto) 2.1, Baso % (Auto) 0.6, Absolute Neuts (auto) 5.0, Absolute Lymphs (auto) 1.06, Nucleated RBC % 0, Sodium 136, Potassium 3.8, Chloride 93 L, Carbon Dioxide 27.6, Anion Gap 16 H, BUN 64 H, Creatinine 7.10 H, Estim Creat Clear Calc 11.15 L, Est GFR (MDRD) Non-Af 8 L, BUN/Creatinine Ratio 9.0 L, Glucose 76, Calcium 9.0, Phosphorus 5.7 H, TSH 1.800 Medications at Discharge Home Medications vitamin B complex-vitamin C-folic acid 0.8 mg tablet (Nephro-Christiano) 1 tab PO DAILY RENAL HEALTH 12/12/23 cyanocobalamin (vitamin B-12) 1,000 mcg tablet (Vitamin B-12) 1,000 mcg PO DAILY supplement 01/12/24 acetaminophen 500 mg tablet 1,000 mg PO BID PAIN 12/02/24 carvedilol 12.5 mg tablet 12.5 mg PO BID High bp 12/02/24 coenzyme Q10 200 mg capsule (Co Q-10) 200 mg PO DAILY supplement 12/02/24 epoetin beta, methoxy peg See Rx Instructions subcut .COMPLEX PRN low blood counts 12/02/24 sevelamer carbonate 800 mg tablet 800 mg PO TIDCM phosphate binder 12/27/24 ascorbic acid (vitamin C) 500 mg tablet 500 mg PO BID supplement #60 tabs 12/29/24 cholecalciferol (vitamin D3) 10 mcg (400 unit) capsule 10 mcg PO 3XW supplement 01/06/25 sensitar 90 mg PO 3XW 01/06/25 atorvastatin 40 mg tablet 40 mg PO QHS cholesterol #90 tabs 01/16/25 aspirin 81 mg chewable tablet [address] [facility] 01/19/25 Held on 02/10/25. Instructions: Hold for 5 days ferrous sulfate 325 mg (65 mg iron) tablet 325 mg PO .COMPLEX anemia 02/03/25 losartan 25 mg tablet 25 mg PO BID heart 02/03/25 pantoprazole 40 mg tablet,delayed release (Protonix) 40 mg PO BID stomach 30 days #60 tabs 02/10/25 Physical Exam Narrative Seen and examined No acute issues. PRBC was transfused. Repeat hemoglobin 7.8 increased from 6.8. EGD finding discussed with the patient. Patient wants to go home. Physical exam General: Alert, Oriented x3, Cooperative HEENT: Atraumatic, PERRLA, EOMI, Normocephalic Oral: Oral mucosa moist. No Gingival or Mucosal Lesions/ Ulcerations Neck: Supple, No JVD, Negative Carotid Bruits Chest wall/Lungs: Air entry diminished in bilateral lung bases. No crepitation/rhonchi Cardiovascular: Sinus rhythm, Normal S1, Normal S2, systolic murmur. Abdomen: Bowel Sounds Present, Soft, Non Tender, Non-Distended : No dysuria. No renal angle tenderness. No suprapubic tenderness. Extremities: Bilateral lower extremity lymphedema. Capillary Refill Less than 3 Seconds Skin: No rashes, No breakdown Musculoskeletal: No Tenderness to Palpation of Joints or Extremities Neurological: Cranial nerves II-XII grossly intact, DTR 2+/4. No acute focal neurological deficit. Psych/Mental Status: Flat affect. Weight / BMI Weight Weight: 195 lb 1.745 oz Body Mass Index (BMI) 28.0 ABG / Lab / Microbiology Data 02/10/25 04:54 02/10/25 04:54 Laboratory: Laboratory Results - last 24 hr 02/09/25 11:14: Haptoglobin 93, Iron 32 L, TIBC 261, Iron Saturation 12.0, Unsaturated IBC 229, Transferrin 220, Ferritin 71 02/09/25 14:50: Hgb 8.0 L, Hct 25.1 L 02/10/25 04:54: WBC 5.5, RBC 2.46 L, Hgb 7.8 L, Hct 24.7 L, MCV 100.4 H, MCH 31.7, MCHC 31.6 L, RDW Std Deviation 58.8 H, RDW Coeff of Brynn 16.0 H, Plt Count 139 L, MPV 11.9, Immature Gran % (Auto) 0.600, Neut % (Auto) 66.5, Lymph % (Auto) 13.9 L, Furnas % (Auto) 15.0 H, Eos % (Auto) 3.3, Baso % (Auto) 0.7, Absolute Neuts (auto) 3.6, Absolute Lymphs (auto) 0.76 L, Nucleated RBC % 0, Sodium 137, Potassium 4.0, Chloride 98, Carbon Dioxide 24.7, Anion Gap 15, BUN 49 H, Creatinine 6.07 H, Estim Creat Clear Calc 12.87 L, Est GFR (MDRD) Non-Af 9 L, BUN/Creatinine Ratio 8.1 L, Glucose 101 H, Calcium 9.2 Microbiology: Microbiology 02/08/25 09:14 Stool Stool Occult Blood (LAMONTE) - Final Occult Blood Positive D/C Instructions Discharge Diet: Renal Diet Weight Bearing Status: Weight bearing as tolerated Call your doctor if you observe: Fever of 101 or Higher, Coldness, Increased Pain, Numbness or Tingling, Change in Color, Inability to urinate, Inability to have a bowel movement, Shortness of breath, Dizziness, Fainting spells, Swelling in the ankles, Chest pain, Prolonged hiccupping, Increased palpitations (irregular heartbeat) and Calf discomfort DC O2, CPAP, BIPAP Needs Home O2 Discharge instructions: No When: IN 2 WEEKS Meaningful Use Info Meaningful Use Meaningful Use Diagnoses (Choose all that apply): None applicable Ischemic Stroke Statin Dosing Therapy Reference: STATIN DOSE THERAPY REFERENCE: * Patients > 75 years receive moderate or high dose statin therapy. * Patients 75 years or YOUNGER should receive HIGH intensity statin dose unless contraindicated. You will be required to document reason for non-treatment if statin daily dose does not meet guidelines. HIGH DOSE STATIN THERAPY DAILY Atorvastatin > than or = to 40 mg Rosuvastatin > than or = to 20 mg Amlodipine + Atorvastatin > than or = to 2.5/40 mg Ezetimibe + Simvastatin 10/80 mg Simvastatin 80mg Discharge Plan Admission Admit Date/Time: 02/08/25 10:55 Primary Reason for Your Visit: Upper GI bleed, angiodysplastic lesion. Attending Provider: Kian Calvert Primary Care Provider: Pavithra Henning Consulting Providers: Hanh Russo Discharge Orders/Prescriptions Prescriptions: Continued carvedilol 12.5 mg tablet 12.5 mg PO BID Rx Instructions: Does not take on Tuesdays, , and Saturdays due to dialysis coenzyme Q10 [Co Q-10] 200 mg capsule 200 mg PO DAILY epoetin beta, methoxy peg [Mircera] See Rx Instructions subcut .COMPLEX PRN (Reason: low blood counts) Patient Comments: GETS AT [facility]IALYSIS CENTER Rx Instructions: only in dialysis subcutaneously PRN; administered by dialysis infusion cholecalciferol (vitamin D3) 10 mcg (400 unit) capsule 10 mcg PO 3XW Patient Comments: GETS AT DIALYSIS CENTER Rx Instructions: On dialysis day. Tue, car, Sat sensitar 90 mg PO 3XW Patient Comments: GETS AT [facility] CENTER Rx Instructions: Dialysis days. Tue, car, sat ferrous sulfate 325 mg (65 mg iron) tablet 325 mg PO .COMPLEX Patient Comments: TAKES AT DINNER TIME Rx Instructions: 325 mg orally Thursday, , and Thu; acetaminophen 500 mg tablet 1,000 mg PO BID Nephro-Christiano 0.8 mg tablet 1 tab PO DAILY Patient Comments: TAKES IN AM ON THURSDAY, THURSDAY, THURSDAY, AND THURSDAY. TAKES AT DINNER TIME ON THURSDAY, THURSDAY, AND THURSDAY. cyanocobalamin (vitamin B-12) [Vitamin B-12] 1,000 mcg tablet 1,000 mcg PO DAILY sevelamer carbonate 800 mg tablet 800 mg PO TIDCM ascorbic acid (vitamin C) 500 mg tablet 500 mg PO BID Qty: 60 2RF pantoprazole [Protonix] 40 mg tablet,delayed release (DR/EC) 40 mg PO BID 30 Days Qty: 60 1RF losartan 25 mg tablet 25 mg PO BID Rx Instructions: does not take am dose on dialysis sat atorvastatin 40 mg tablet 40 mg PO QHS Qty: 90 3RF Held aspirin 81 mg Tablet,Chewable 81 mg PO DAILY Hold Instructions: Hold for 5 days Patient Comments: TAKES AT DINNER TIME Referrals / Follow Up: Pavithra Henning MD [Primary Care Provider] - 02/22/25 1:30 pm (Appointment is with CLIFF Gilmore) Sean Mera MD [Med Staff - Active Staff] - 02/21/25 9:00 am (The appointment will be in the [facility], please arrive 15 minutes before your scheduled appointment. ) Bekah Washington MD [Non-Staff] - 03/10/25 3:30 pm Yocasta Winkler NP-C [Med Staff - Adv Practice Prof] - 03/03/25 1:00 pm Disposition Disposition (needs filled in before D/C Order can be placed): Home, Self Care Charges/Coding Visit Charges Inpatient E&M: 46874 Disch Hosp >30min
--- NOTE | 2025-02-10 12:53 | CASEMGMT ---
Addendum entered by Jacob Jimenez 02/10/25 13:05: Call placed to Alessia, Oncology Nurse Patient Navigator, @ [facility] re: referral to Dr Mera. No answer. VM left, informing her of referral. Original Note: RN NYLA NOTE: Discharge order is in. RN CM to room. Pt sitting up in chair, in room and will take pt home. Introduced self and role. Pt will be going to OP HD appt @ [facility] tomorrow as previously scheduled and will resume w/OP ST @ [facility]. Pt and made aware he is to f/u with IT SECURITY CONSULTANT, Yocasta Winkler w/in a month and that an appt has been scheduled w/Dr Mera 02/21 @ 0900 and an appt w/Dr Garcia 02/27. states pt has an appt Dr Henning to get established as a new pt on 03/07. Made aware an appt has been scheduled w/PA Federico @ Dr Henning's office as well. Pt/ to f/u to inquire if appt w/Dr Henning will still be needed 03/07. states Bekah Washington was pt's PCP previously. She is aware an appt has been made for 03/10 and she states she will call and cancel this. Pt and deny having any further discharge needs/concerns/questions. Gordon JEROME RN, CM
== END 2025-02-10 13:07 | disposition home or self-care (01) | DRG 377 ==
LOC: ED 10:57 → ICU 13:47 → PCU 02-09 15:07
PROVIDERS: Internal Medicine Gastroenterology; Admitting Provider Internal Medicine; Emergency Provider Emergency Medicine; PCP Internal Medicine; Visit Provider Internal Medicine
PROC: 0DJ08ZZ Inspection of Upper Intestinal Tract, Via Natural or Artificial Opening Endoscopic (ICD-10-PCS; CPT 43235; principal; 2025-02-09 16:55)
DX: K31.811 Angiodysplasia of stomach and duodenum with bleeding (principal); N18.6 End stage renal disease; I13.2 Hypertensive heart and chronic kidney disease with heart failure and with stage 5 chronic kidney disease, or end stage renal disease; I50.22 Chronic systolic (congestive) heart failure; D63.1 Anemia in chronic kidney disease; E66.9 Obesity, unspecified; D50.9 Iron deficiency anemia, unspecified; I25.10 Atherosclerotic heart disease of native coronary artery without angina pectoris; F17.210 Nicotine dependence, cigarettes, uncomplicated; I65.21 Occlusion and stenosis of right carotid artery; L98.8 Other specified disorders of the skin and subcutaneous tissue; Z99.2 Dependence on renal dialysis; K57.30 Diverticulosis of large intestine without perforation or abscess without bleeding; I44.7 Left bundle-branch block, unspecified; K44.9 Diaphragmatic hernia without obstruction or gangrene; Z79.82 Long term (current) use of aspirin; Z82.49 Family history of ischemic heart disease and other diseases of the circulatory system; K63.89 Other specified diseases of intestine; Z68.30 Body mass index [BMI] 30.0-30.9, adult
CPT/HCPCS: 36415; 80048; 82274; 82728; 83010; 83540; 83550; 83605; 83735; 84100; 84443; 84466; 85014; 85018; 85025; 85027; 85045; 86850; 86880; 86900; 86901; 90937; 93005; 94668; 97802; 99285; C1889; P9016; A4216; G0257; J2405

== ENCOUNTER 2025-03-02 22:21 | Inpatient (IN) | payer MEDICARE, BC, SELFPAY ==
[2025-02-10 11:35] VITALS: BMI 29.4
[2025-03-02 22:22] VITALS: BP 132/71; PULSE 94; RESP 15; TEMP 36.4; O2SAT 99
--- NOTE | 2025-03-02 22:29 | EX.ED.DYSGE1 ---
HPI History of Present Illness Chief Complaint: GI Bleed Narrative Narrative: Chief complaint and HPI: GI bleed. History taken by patient as well as medical record. 69-year-old male with past medical history of ischemic stroke, HTN, CHF with an EF of 25%, ESRD on HD Thursday, , Thursday and recurrent GI bleeds who presents for evaluation of GI bleed. Patient states that around 5 PM this evening he had a blowout stool. He states he then had another bowel movement that was bright red blood. Denies any abdominal pain. States he has been weak and fatigued all day. Did receive dialysis. On chart review, patient had a GI bleed in December as well as earlier this month. Patient had a EGD performed on 02/09/[address] Ross. 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 Treated with heater probe. Small hiatal hernia. 1 nonbleeding angiodysplastic lesion in the jejunum. Treated with heater probe. Recommendation by Dr. Ross after the procedure was hematology consult for Avastin therapy to prevent recurrent angiodysplastic lesions in the setting of the dialysis patient. He had a colonoscopy performed on 12/26/2023 that was unsatisfactory given preparation. Diverticulosis. Polyp that was removed. Patient saw Dr. Mera on 02/21/2025 for Avastin. Per his note given his comorbidities he is a poor candidate. He is scheduled to see GI tomorrow. Review of systems: See HPI Medications: As listed on the chart Allergies: As listed on the chart PFSH: Per chart Vital signs: As listed on the chart. Reviewed. Physical exam: Gen: A&O x3, NAD Head: Normocephalic, atraumatic Eyes: No sclera icterus, conjunctiva clear ENT: Moist mucous membranes Neck: Trachea midline, No JVD CV: RRR, no murmurs, no peripheral edema Resp: Lungs CTA BL, no w/r/c GI: Abd soft, non-distended, non-tender, no r/r/g Rectal: Normal external examination. No evidence of hemorrhoids or fissures. Normal tone and sensation. No masses, fluctuance, or tenderness. No pain out of proportion. Black stool on gloved finger. Musc: Full ROM, no deformity Skin: Warm, dry Neuro: Alert, oriented, grossly intact, sensation intact Psych: Cooperative, appropriate mood and affect [facility] Medical History CVA (cerebral vascular accident) ESRD (end stage renal disease) Symptomatic anemia Carotid stenosis, right ESRD (end stage renal disease) on dialysis Acute anemia Black stool History of transcatheter aortic valve replacement (TAVR) Wears glasses History of steroid therapy History of renal disease Low iron Rheumatoid arthritis Back pain Migraine headache Dietary restriction History of diverticulitis History of ulceration Shortness of breath on exertion Lymphedema History of echocardiogram Cardiology follow-up encounter Hypertension Chronic renal failure Anemia DVT (deep venous thrombosis) End stage renal disease on dialysis Secondary hyperparathyroidism Generalized weakness Acute on chronic anemia Chronic anemia Acute upper GI bleed History of end stage renal disease History of renal dialysis Dialysis patient Hepatitis Smoker Bursitis Problem with dialysis access Rectal bleeding Subclavian aneurysm Kidney failure due to vascular disorder Cardiac disease Rheumatoid vasculitis Rheumatoid aortitis Home Medications ?Medication ?Instructions ?Recorded ?Last Taken ?Type vitamin B complex-vitamin C-folic 1 tab PO DAILY RENAL HEALTH 12/12/23 02/07/25 History acid 0.8 mg tablet (Nephro-Christiano) cyanocobalamin (vitamin B-12) 1,000 mcg PO DAILY supplement 01/12/24 02/08/25 History 1,000 mcg tablet (Vitamin B-12) acetaminophen 500 mg tablet 1,000 mg PO BID PAIN 12/02/24 02/08/25 History carvedilol 12.5 mg tablet 12.5 mg PO BID High bp 12/02/24 02/08/25 History coenzyme Q10 200 mg capsule (Co 200 mg PO DAILY supplement 12/02/24 02/08/25 History Q-10) epoetin beta, methoxy peg See Rx Instructions subcut 12/02/24 02/04/25 History .COMPLEX PRN low blood counts sevelamer carbonate 800 mg tablet 800 mg PO TIDCM phosphate binder 12/27/24 02/07/25 History ascorbic acid (vitamin C) 500 mg 500 mg PO BID supplement #60 tabs 12/29/24 01/19/25 Rx tablet sensitar 90 mg PO 3XW 01/06/25 02/07/25 History atorvastatin 40 mg tablet 40 mg PO QHS cholesterol #90 tabs 01/16/25 03/02/25 Rx aspirin 81 mg chewable tablet 81 mg PO DAILY heart health 01/19/25 01/19/25 History ferrous sulfate 325 mg (65 mg 325 mg PO .COMPLEX anemia 02/03/25 02/06/25 History iron) tablet losartan 25 mg tablet 25 mg PO BID heart 02/03/25 02/08/25 History pantoprazole 40 mg tablet,delayed 40 mg PO BID stomach 30 days #60 02/10/25 Unknown Rx release (Protonix) tabs vitamin D 1.25 1.25 mcg PO 3XD 02/22/25 Unknown History heparin (porcine) 5,000 unit/mL 5,000 unit subcut ONCE 02/27/25 Unknown History injection solution Allergy/AdvReac Type Severity Reaction Status Date / Time No Known Allergies Allergy Verified 03/02/25 22:22 Family History Father Heart disease Atrial fibrillation Mother , 88 Heart disease Myocardial infarction Brother Heart disease Myocardial infarction Surgical History History of cardiac catheterization Hx of colonoscopy with polypectomy History of esophagogastroduodenoscopy (EGD) Hx of arteriovenostomy for renal dialysis (~12/2019) Status post insertion of dialysis catheter (~11/2019) History of umbilical hernia s/p subclavian graft S/P knee surgery History of bicuspid aortic valve Social History household members: spouse housing: house Smoking Status: Light Smoker (<10/day) alcohol intake: never substance use type: does not use caffeine: Yes Type: coffee Number of servings: 2 EXAM Physical Exam Const Vital Signs: 03/02/25 22:22 03/02/25 23:07 03/02/25 23:15 Temperature 97.5 F L Temperature Source Temporal Pulse Rate 94 90 92 Respiratory Rate 15 16 15 Blood Pressure 132/71 H Blood Pressure Mean 91 Pulse Ox 99 97 97 Oxygen Delivery Method Room Air 03/02/25 23:30 03/02/25 23:45 03/03/25 00:00 Temperature Temperature Source Pulse Rate 87 83 79 Respiratory Rate 15 15 16 Blood Pressure 112/63 105/81 H Blood Pressure Mean 79 90 Pulse Ox 95 96 97 Oxygen Delivery Method 03/03/25 00:15 Temperature Temperature Source Pulse Rate 85 Respiratory Rate 14 Blood Pressure Blood Pressure Mean Pulse Ox 97 Oxygen Delivery Method MDM MDM MDM Narrative Medical decision making narrative: 69-year-old male with past medical history of ischemic stroke, HTN, CHF with an EF of 25%, ESRD on HD Thursday, , Thursday and recurrent GI bleeds who presents for evaluation of GI bleed. See [facility] for chart review. Patient has recurrent bleeding from angiodysplastic lesions. Follows with Dr. Ross. Differential diagnosis includes but is not limited to upper GI bleed, lower GI bleed, acute on chronic anemia, electrolyte abnormality. NS bolus and Protonix ordered. NS bolus DC'd as patient did receive dialysis today and does not look dehydrated. Laboratory workup ordered including type and screen. Patient not having abdominal pain therefore CT abdomen pelvis not needed at this time. CBC without leukocytosis. Patient at his baseline anemia of 7.7. Platelet count unremarkable. Coagulation panel unremarkable. CMP shows baseline ESRD. No transaminitis. Patient will warrant admission for endoscopy. Patient follows with Dr. Ross, he is not on consult this evening however given that it is his personal patient he was paged. I was unable to get a hold of Dr. Ross however patient will still require admission. I spoke with the hospitalist service, Dr. Lopez. He accepted admission. We did call the carbon dioxide operator and was informed that Dr. Ross is not on-call tomorrow but is present and not out of town. Patient was actually supposed to see him in the clinic tomorrow. Impression: 1. Recurrent GI bleed with history of angiodysplastic lesions 2. ESRD on HD 3. Chronic anemia Lab Data Labs: Laboratory Results - last 24 hr 03/02/25 22:55 WBC 7.3 RBC 2.49 L Hgb 7.7 L Hct 24.7 L MCV 99.2 H MCH 30.9 MCHC 31.2 L RDW Std Deviation 54.0 H RDW Coeff of Brynn 14.9 H Plt Count 165 MPV 11.2 Immature Gran % (Auto) 0.400 Neut % (Auto) 75.6 H Lymph % (Auto) 9.9 L Bremer % (Auto) 11.7 H Eos % (Auto) 1.8 Baso % (Auto) 0.6 Absolute Neuts (auto) 5.5 Absolute Lymphs (auto) 0.72 L Nucleated RBC % 0 PT 14.8 INR 1.1 APTT 30.1 Sodium 137 Potassium 3.8 Chloride 94 L Carbon Dioxide 29.2 Anion Gap 14 BUN 30 H Creatinine 4.37 H Estim Creat Clear Calc 18.21 L Est GFR (MDRD) Non-Af 14 L BUN/Creatinine Ratio 6.8 L Glucose 135 H Lactic Acid 1.8 Calcium 8.8 Total Bilirubin 0.29 AST 24 ALT < 5 Alkaline Phosphatase 49 Total Protein 6.4 Albumin 3.7 Globulin 2.6 Albumin/Globulin Ratio 1.4 Blood Type A POSITIVE Antibody Screen NEGATIVE Discharge Plan Triage Chief Complaint: GI Bleed ED Provider: Tristan Cronin Dx/Rx/DC Orders Prescriptions: No Action carvedilol 12.5 mg tablet 12.5 mg PO BID Rx Instructions: Does not take on Tuesdays, , and Saturdays due to dialysis coenzyme Q10 [Co Q-10] 200 mg capsule 200 mg PO DAILY epoetin beta, methoxy peg [Mircera] See Rx Instructions subcut .COMPLEX PRN (Reason: low blood counts) Patient Comments: [facility] Rx Instructions: only in dialysis subcutaneously PRN; administered by dialysis infusion sensitar 90 mg PO 3XW Patient Comments: GETS [facility] Rx Instructions: Dialysis days. Thu, thu, thu heparin (porcine) 5,000 unit/mL solution 5,000 unit subcut ONCE Rx Instructions: Given as an infusion during dialysis ferrous sulfate 325 mg (65 mg iron) tablet 325 mg PO .COMPLEX Patient Comments: TAKES AT DINNER TIME Rx Instructions: 325 mg orally Thursday, , and Thu; vitamin D 1.25 1.25 mcg PO 3XD Rx Instructions: 1 total per day taken after dialysis on , , and Thursday acetaminophen 500 mg tablet 1,000 mg PO BID Nephro-Christiano 0.8 mg tablet 1 tab PO DAILY Patient Comments: TAKES IN AM ON THURSDAY, THURSDAY, THURSDAY, AND THURSDAY. TAKES AT DINNER TIME ON THURSDAY, THURSDAY, AND THURSDAY. cyanocobalamin (vitamin B-12) [Vitamin B-12] 1,000 mcg tablet 1,000 mcg PO DAILY sevelamer carbonate 800 mg tablet 800 mg PO TIDCM ascorbic acid (vitamin C) 500 mg tablet 500 mg PO BID Qty: 60 2RF aspirin 81 mg Tablet,Chewable 81 mg PO DAILY Patient Comments: TAKES AT DINNER TIME pantoprazole [Protonix] 40 mg tablet,delayed release (DR/EC) 40 mg PO BID 30 Days Qty: 60 1RF losartan 25 mg tablet 25 mg PO BID Rx Instructions: does not take am dose on dialysis days sat atorvastatin 40 mg tablet 40 mg PO QHS Qty: 90 3RF Primary Care Provider: Pavithra Henning Referrals: Pavithra Henning MD [Primary Care Provider] - Print Language: Macedonian
[2025-03-02 23:07] VITALS: PULSE 90; RESP 16; O2SAT 97
[2025-03-02 23:11] LABS: Absolute Lymphocyte Count 0.72 X10^3/uL (0.83-4.51); Absolute Neutrophil Count 5.5 X10^3/uL (2.0-7.7); Basophil# 0.04 X10^3/uL; Basophil% 0.6 % (0-1); Eosinophil# 0.13 X10^3/uL; Eosinophils% 1.8 % (0-5); Hematocrit 24.7 % (40-54); Hemoglobin 7.7 g/dL (13.0-16.5); Lymphocyte # 0.72 X10^3/ul (0.83-4.51); Lymphocyte % 9.9 % (19-41); Mean Corp Hgb Conc 31.2 g/dL (32-36); Mean Corpuscular Hgb 30.9 pg (27.0-32.0); Mean Corpuscular Volume 99.2 fL (80-94); Mean Platelet Vol. 11.2 fl (6.2-12.0); Monocyte# 0.85 X10^3/uL; Monocyte% 11.7 % (0-10); NRBC Flagged by Analyzer 0 % (0-5); Neutrophil # 5.48 X10^3/uL (2.7-7.7); Neutrophil % 75.6 % (47-70); Platelet Count 165 K/mm3 (150-450); RBC Distribution Width CV 14.9 % (11.6-14.6); Red Blood Count 2.49 M/mm3 (4.6-6.2); White Blood Count 7.3 K/mm3 (4.4-11.0)
[2025-03-02 23:15] VITALS: PULSE 92; RESP 15; O2SAT 97
[2025-03-02 23:24] LABS: International Normalized Ratio 1.1; Partial Thromboplast Time 30.1 Seconds (24.1-36.2); Prothrombin Time (Protime)PT. 14.8 SECONDS (11.7-14.9)
[2025-03-02 23:30] VITALS: BP 112/63; PULSE 87; RESP 15; O2SAT 95
[2025-03-02] MEDS: Pantoprazole Sodium 40 MG in 0.9% Normal Saline (100mL MB+) 100 ML 330 MG IV (23:31)
[2025-03-02 23:33] VITALS: BMI 29.2
[2025-03-02 23:38] LABS: Lactic Acid 1.8 mmol/L (0.0-2.0)
[2025-03-02 23:45] VITALS: PULSE 83; RESP 15; O2SAT 96
[2025-03-02 23:50] LABS: ALB/GLOB Ratio 1.4 RATIO (0.9-2.4); AST(SGOT) 24 U/L (<=37); Alanine Aminotransfer ALT/SGPT < 5 U/L (<=46); Albumin, Serum 3.7 g/dL (3.4-4.8); Alkaline Phosphatase 49 U/L (40-129); Anion Gap 14 (5-15); BUN 30 mg/dL (4-19); BUN/Creat Ratio 6.8 RATIO (10-20); Calcium,Total 8.8 mg/dL (7.6-11.0); Carbon Dioxide 29.2 mmol/L (21.0-32.0); Chloride 94 mmol/L (98-108); Creatinine, Serum 4.37 mg/dL (0.70-1.20); EST Glomerular Filtration Rate 14 (>60); Estimated Creatinine Clearance 18.21 ml/min (50-250); Globulin 2.6 g/dL (2.2-4.2); Glucose 135 mg/dL (70-99); Potassium 3.8 mmol/L (3.3-5.1); Protein, Total 6.4 g/dL (5.9-8.4); Sodium Level 137 mmol/L (133-145); Total Bilirubin 0.29 mg/dL (0.00-1.30)
[2025-03-03] VITALS (11 sets, daily range): BP systolic 91–117; BP diastolic 52–90; PULSE 52–97; RESP 14–18; TEMP 36.8–37.4; O2SAT 94–100; BMI 28.0
--- NOTE | 2025-03-03 00:54 | PCM.HP.STD ---
[facility] - General General Date of Admission: 03/03/25 Date of Service: 03/03/25 Chief Complaint: LGIB with BRBPR. HPI Narrative BINDU DUMONT, is a 69 M with a past medical history of essential hypertension; on losartan and carvedilol, overweight with BMI of 27.4 this admission, ESRD; on HD (), chronic anemia; primarily due to renal disease with superimposed BERTRAND on oral ferrous sulfate and epoetin beta, history of bicuspid aortic valve with insufficiency; s/p TAVR (04/2024), history of CAD; with patient in need of stent when he can tolerate aspirin, chronic systolic CHF; LVEF ~25% (09/2024), RA; with associated rheumatoid vasculitis and aortitis, history of subclavian aneurysm (~2014); s/p subclavian graft, history of RUE DVT due to aneurysm (~2014), hepatitis C positive; with genotype 1b without cirrhosis PCR RNA quant was 1 million with patient having completed Epclusa therapy x 12 weeks with subsequent PCR RNA quant continuing to be normal, history of diverticulitis, history of colonoscopy with polypectomy (2023), history of umbilical hernia, history of lower extremity lymphedema, chronic tobacco abuse, history of migraine headache, GERD with history of PUD causing for peptic ulcers cauterized in the past; on pantoprazole, OA; with history of knee surgery and chronic back pain and recent admission here from December 27, 2024 to December 29, 2024 for treatment of Melanotic Stools with increased weakness and fatigue for ~4-5 days secondary to UGIB with 1 unit of PRBCs ordered and patient found to have a single bleeding angiodysplastic lesion in the stomach treated with a heater probe by Dr. Ross of gastroenterology in addition to elevated troponin suspected to be due to demand ischemia followed by most recent admission here from February 08, 2025 to February 10, 2025 for treatment of black tarry stools 3 times daily but the patient noted to have three ~5 mm angiodysplastic lesions found in the greater curvature of the stomach in addition to three ~6 mm angiodysplastic lesions found in the second and third portion of the duodenum on EGD with patient subsequently treated with heater probe for hemostasis with subsequent recommendation by Dr. Ross for patient to potentially undergo a Avastin therapy to prevent recurrent angiodysplastic lesions in the setting of being on chronic hemodialysis but unfortunately he was not deemed to be suitable candidate for this agent by oncology who now re-presents to [facility] ER complaining of lower GI bleed with BRBPR. Mr. Dumont reports his symptoms began around 5 PM on the evening of March 02, 2025 when he had a large blowout stool followed by bright red blood per rectum. He has subsequently felt weak and fatigued all day but he did undergo hemodialysis. He denies associated abdominal pain, nausea, vomiting, fever, chills, chest pain, shortness of breath, headache or rash. In the ER he was diagnosed with recurrent GI bleed with BRBPR with a hemoglobin of 7.7 g/dL present on admission and he was then admitted to the PCU for ongoing care for stay that is expected to extend beyond 2 midnights. [facility] Medical History (Updated 03/03/25 @ 01:[address] Landon Martinez, DO) Chronic anemia CVA (cerebral vascular accident) ESRD (end stage renal disease) Symptomatic anemia Carotid stenosis, right ESRD (end stage renal disease) on dialysis Acute anemia Black stool History of transcatheter aortic valve replacement (TAVR) Wears glasses History of steroid therapy History of renal disease Low iron Rheumatoid arthritis Back pain Migraine headache Dietary restriction History of diverticulitis History of ulceration Shortness of breath on exertion Lymphedema History of echocardiogram Cardiology follow-up encounter Hypertension Chronic renal failure Anemia DVT (deep venous thrombosis) End stage renal disease on dialysis Secondary hyperparathyroidism Generalized weakness Acute on chronic anemia Acute upper GI bleed History of end stage renal disease History of renal dialysis Dialysis patient Hepatitis Smoker Bursitis Problem with dialysis access Rectal bleeding Subclavian aneurysm Kidney failure due to vascular disorder Cardiac disease Rheumatoid vasculitis Rheumatoid aortitis Home Medications ?Medication ?Instructions ?Recorded ?Last Taken ?Type vitamin B complex-vitamin C-folic 1 tab PO DAILY RENAL HEALTH 12/12/23 02/07/25 History acid 0.8 mg tablet (Nephro-Christiano) cyanocobalamin (vitamin B-12) 1,000 mcg PO DAILY supplement 01/12/24 02/08/25 History 1,000 mcg tablet (Vitamin B-12) acetaminophen 500 mg tablet 1,000 mg PO BID PAIN 12/02/24 02/08/25 History carvedilol 12.5 mg tablet 12.5 mg PO BID High bp 12/02/24 02/08/25 History coenzyme Q10 200 mg capsule (Co 200 mg PO DAILY supplement 12/02/24 02/08/25 History Q-10) epoetin beta, methoxy peg See Rx Instructions subcut 12/02/24 02/04/25 History .COMPLEX PRN low blood counts sevelamer carbonate 800 mg tablet 800 mg PO TIDCM phosphate binder 12/27/24 02/07/25 History ascorbic acid (vitamin C) 500 mg 500 mg PO BID supplement #60 tabs 12/29/24 01/19/25 Rx tablet sensitar 90 mg PO 3XW 01/06/25 02/07/25 History atorvastatin 40 mg tablet 40 mg PO QHS cholesterol #90 tabs 01/16/25 03/02/25 Rx aspirin 81 mg chewable tablet 81 mg PO DAILY heart health 01/19/25 01/19/25 History ferrous sulfate 325 mg (65 mg 325 mg PO .COMPLEX anemia 02/03/25 02/06/25 History iron) tablet losartan 25 mg tablet 25 mg PO BID heart 02/03/25 02/08/25 History pantoprazole 40 mg tablet,delayed 40 mg PO BID stomach 30 days #60 02/10/25 Unknown Rx release (Protonix) tabs vitamin D 1.25 1.25 mcg PO 3XD 02/22/25 Unknown History heparin (porcine) 5,000 unit/mL 5,000 unit subcut ONCE 02/27/25 Unknown History injection solution Allergy/AdvReac Type Severity Reaction Status Date / Time No Known Allergies Allergy Verified 03/02/25 22:22 Family History Father Heart disease Atrial fibrillation Mother , 88 Heart disease Myocardial infarction Brother Heart disease Myocardial infarction Surgical History History of cardiac catheterization Hx of colonoscopy with polypectomy History of esophagogastroduodenoscopy (EGD) Hx of arteriovenostomy for renal dialysis (~12/2019) Status post insertion of dialysis catheter (~11/2019) History of umbilical hernia s/p subclavian graft S/P knee surgery History of bicuspid aortic valve Social History household members: spouse housing: house Smoking Status: Light Smoker (<10/day) alcohol intake: never substance use type: does not use caffeine: Yes Type: coffee Number of servings: 2 ROS ROS Narrative Review of Systems: Constitutional: Patient denies fever or chills. Eyes: Patient denies changes in vision or discharge from eyes. ENT: Patient denies runny nose, sore throat or ear pain. Resp: Patient denies shortness of breath or cough. CV: Patient denies chest pain, palpitations, heart racing or lower extremity edema. GI: Patient admits to large blowout stool followed by LGIB with BRBPR as per HPI. He denies nausea, vomiting or constipation. : Patient only makes approximately 10 cc of urine daily. MSK: Patient admits to generalized weakness and fatigue but he denies arthralgias or myalgias. Skin: Patient denies rash, abscess, wounds or jaundice. Psych: Patient denies symptoms of uncontrolled depression or anxiety. Neuro: Patient denies headache, paresthesias or focal neurologic deficits. Allergy: Patient denies lip swelling, tongue swelling or urticaria. Hematology: Patient admits to LGIB with BRBPR in the setting of chronic recurrent GI bleeding episodes requiring serial readmission. Endocrinology: Patient denies polyuria, polydipsia, polyphagia or heat/cold intolerance. 14 point ROS otherwise negative except for positives noted above in HPI. Vital Signs Vital Signs Vital Signs: 03/02/25 22:22 03/02/25 23:07 03/02/25 23:15 Temperature 97.5 F L Temperature Source Temporal Pulse Rate 94 90 92 Respiratory Rate 15 16 15 Blood Pressure 132/71 H Blood Pressure Mean 91 Pulse Ox 99 97 97 Oxygen Delivery Method Room Air 03/02/25 23:30 03/02/25 23:45 03/03/25 00:00 Temperature Temperature Source Pulse Rate 87 83 79 Respiratory Rate 15 15 16 Blood Pressure 112/63 105/81 H Blood Pressure Mean 79 90 Pulse Ox 95 96 97 Oxygen Delivery Method 03/03/25 00:15 Temperature Temperature Source Pulse Rate 85 Respiratory Rate 14 Blood Pressure Blood Pressure Mean Pulse Ox 97 Oxygen Delivery Method Weight Weight: 203 lb 7.787 oz Body Mass Index (BMI) 29.2 Physical Exam Const alert, oriented x3, no apparent distress and average body habitus Constitutional Narrative: Patient has chronically ill appearance. General Appearance: cooperative HEENT normocephalic, head/scalp atraumatic, hearing grossly normal bilaterally and moist oral mucous membranes Eyes PERRL, EOMs intact bilaterally and conjunctivae normal Neck no lymphadenopathy and supple Resp normal respiratory effort, no retractions, no use of accessory muscles and clear to auscultation bilaterally Cardio regular rate and regular rhythm GI normal to inspection, nondistended, normoactive bowel sounds, soft to palpation, non-tender and non-distended Extremity normal to inspection, full ROM and no clubbing, cyanosis or edema Skin Skin Narrative: Patient has evidence of rash, abscess, wounds or jaundice. Neuro oriented x3, CN's II-XII intact bilaterally, moves all extremities and no focal motor deficits Sensorium / Orientation: awake, alert, oriented to person, oriented to place and oriented to time Speech: speech normal Psych affect normal Results Medical Records Data Attestation: I reviewed the patient's medical records Lab / Micro Data Attestation: I reviewed the patient's lab results. 03/03/25 03:43 03/03/25 03:43 Labs: Laboratory Results - last 24 hr 03/02/25 22:55: WBC 7.3, RBC 2.49 L, Hgb 7.7 L, Hct 24.7 L, MCV 99.2 H, MCH 30.9, MCHC 31.2 L, RDW Std Deviation 54.0 H, RDW Coeff of Brynn 14.9 H, Plt Count 165, MPV 11.2, Immature Gran % (Auto) 0.400, Neut % (Auto) 75.6 H, Lymph % (Auto) 9.9 L, [place] % (Auto) 11.7 H, Eos % (Auto) 1.8, Baso % (Auto) 0.6, Absolute Neuts (auto) 5.5, Absolute Lymphs (auto) 0.72 L, Nucleated RBC % 0, PT 14.8, INR 1.1, APTT 30.1, Sodium 137, Potassium 3.8, Chloride 94 L, Carbon Dioxide 29.2, Anion Gap 14, BUN 30 H, Creatinine 4.37 H, Estim Creat Clear Calc 18.21 L, Est GFR (MDRD) Non-Af 14 L, BUN/Creatinine Ratio 6.8 L, Glucose 135 H, Lactic Acid 1.8, Calcium 8.8, Total Bilirubin 0.29, AST 24, ALT < 5, Alkaline Phosphatase 49, Total Protein 6.4, Albumin 3.7, Globulin 2.6, Albumin/Globulin Ratio 1.4, Blood Type A POSITIVE, Antibody Screen NEGATIVE Micro: Microbiology 03/02/25 22:55 Stool Stool Occult Blood (LAMONTE) - Final Occult Blood Positive Assessment & Plan Assessment/Plan (1) LGI bleed: (2) BRBPR (bright red blood per rectum): (3) Chronic anemia: (4) Angiodysplasia of stomach and duodenum: (5) ESRD on hemodialysis: PLAN: Plan 1. Recurrent LGIB with BRBPR in the setting of known chronic anemia; primarily due to renal disease with superimposed BERTRAND on ferrous sulfate - Admit to PCU. Type and screen blood and transfuse if hemoglobin less than 7 g/dL. Keep n.p.o. until GI evaluation. We will consult Dr. Ross of gastroenterology to see patient on rounds in the a.m. for further recommendations regarding possible colonoscopy this admission. Recheck of patient's hemoglobin was 6.9 g/dL with the patient ordered 1 unit of PRBCs. Finally, given patient's serial pattern readmission for recurrent GI bleeds and his inability to be treated with a Avastin he may require palliative care consultation to avoid further serial readmission if gastroenterology is agreeable, as this patient is still desperate for an effective treatment. 2. Recent admission here from February 08, 2025 to February 10, 2025 for treatment of black tarry stools 3 times daily but the patient noted to have three ~5 mm angiodysplastic lesions found in the greater curvature of the stomach in addition to three ~6 mm angiodysplastic lesions found in the second and third portion of the duodenum on EGD with patient subsequently treated with heater probe for hemostasis with subsequent recommendation by Dr. Ross for patient to potentially undergo a Avastin therapy to prevent recurrent angiodysplastic lesions in the setting of being on chronic hemodialysis but unfortunately he was not deemed to be suitable candidate for this agent by oncology complicating #1 - Noted. 3. History of admission here from December 27, 2024 to December 29, 2024 for treatment of Melanotic Stools with increased weakness and fatigue for ~4-5 days secondary to UGIB with 1 unit of PRBCs ordered and patient found to have a single bleeding angiodysplastic lesion in the stomach treated with a heater probe by Dr. Ross of gastroenterology in addition to elevated troponin suspected to be due to demand ischemia compounding #1 & #2. 4. History of Ischemic CVA; likely due to significant Right Carotid Artery Stenosis with CTA of the head and neck with IV contrast that revealed soft and calcific plaque formation of the Right carotid bulb and internal carotid artery with an associated ~70% luminal stenosis with contrast seen beyond throughout the remainder of the Right internal coronary artery with recommended follow-up with vascular surgery adding to the medical complexity of #1 - #3 - Noted. 5. History of CAD; with patient in need of stent when he can tolerate aspirin amplifying the pathology of #1 - #4 - Serialize troponin to ensure continued stability. 6. ESRD; on HD since 2019 (--Thu) with most recent dialysis yesterday - Noted with patient not due for another hemodialysis session until Thursday. 7. Chronic Tobacco Abuse in vasculopathic dialysis patient adding to the already significant burden of disease outlined from #1 - #4 - Tobacco Cessation will be strongly encouraged with no nicotine patch offered in light of #1 - #6. 8. Essential Hypertension; on losartan and carvedilol - Hold scheduled antihypertensives in light of #1. Give hydralazine IV as needed for systolic blood pressure greater than 160 mmHg. 9. Overweight with BMI of 29.2 this admission - Weight loss will be recommended. 10. History of bicuspid aortic valve with insufficiency; s/p TAVR (04/2024) - Noted. 11. Chronic systolic CHF; LVEF ~25% (09/2024) - Stable with no current evidence of volume overload. 12. RA; with associated rheumatoid vasculitis and aortitis - Stable. 13. History of subclavian aneurysm (~2014); s/p subclavian graft - Noted. 14. History of RUE DVT due to aneurysm (~2014) - Noted with no evidence of recurrence at this time. 15. Hepatitis C positive; with genotype 1b without cirrhosis PCR RNA quant was 1 million with patient having completed Epclusa therapy x 12 weeks with subsequent PCR RNA quant continuing to be normal followed by Dr. Ross of gastroenterology - Noted. 16. History of diverticulitis - Noted. 17. History of colonoscopy with polypectomy (2023) - Noted. 18. History of umbilical hernia - Noted. 19. History of lower extremity lymphedema - Resolved. 20. History of migraine headache - Previously resolved. 21. GERD with history of PUD causing for peptic ulcers cauterized in the past; on pantoprazole - Maintain PPI IV. 22. OA; with history of knee surgery and chronic back pain - Stable. 23. DVT prophylaxis - SCD's only in light of #1. Total time: Approximately (but not less than) 75 minutes. Charges/Coding Visit Charges Inpatient E&M: 59761 Init Hosp L3
--- NOTE | 2025-03-03 02:21 | ED.RN ---
The patient called out requesting the side rail be put down. This RN stated We are taking you up to the floor now, can you wait? Pt states No put the rail down now. This RN put the rail down. Patient sat on the side of the bed and threw all of his blankets down. This RN said are you done with the blankets because I can't leave blankets in the floor like this and I'm about to clean the room because youre going upstairs now. Patient states Yes I am done with the blankets. Lois GAY walks in to take patient up to the floor. Pt requests wheelchair to go up and refuses monitor for the ride up. This RN removes the monitor due to patient agitation and he goes up via wheelchair.
[2025-03-03 04:24] LABS: Absolute Lymphocyte Count 0.97 X10^3/uL (0.83-4.51); Absolute Neutrophil Count 4.3 X10^3/uL (2.0-7.7); Basophil# 0.03 X10^3/uL; Basophil% 0.5 % (0-1); Eosinophil# 0.12 X10^3/uL; Eosinophils% 1.9 % (0-5); Hematocrit 21.6 % (40-54); Hemoglobin 6.9 g/dL (13.0-16.5); Lymphocyte # 0.97 X10^3/ul (0.83-4.51); Lymphocyte % 15.2 % (19-41); Mean Corp Hgb Conc 31.9 g/dL (32-36); Mean Corpuscular Hgb 31.7 pg (27.0-32.0); Mean Corpuscular Volume 99.1 fL (80-94); Mean Platelet Vol. 11.7 fl (6.2-12.0); Monocyte# 0.96 X10^3/uL; NRBC Flagged by Analyzer 0 % (0-5); Neutrophil # 4.28 X10^3/uL (2.7-7.7); Neutrophil % 67.1 % (47-70); Platelet Count 161 K/mm3 (150-450); RBC Distribution Width CV 14.9 % (11.6-14.6); RBC Distribution Width SD 53.8 fl (35.1-43.9); Red Blood Count 2.18 M/mm3 (4.6-6.2); White Blood Count 6.4 K/mm3 (4.4-11.0)
[2025-03-03 06:08] LABS: ALB/GLOB Ratio 1.5 RATIO (0.9-2.4); AST(SGOT) 22 U/L (<=37); Alanine Aminotransfer ALT/SGPT 5 U/L (<=46); Albumin, Serum 3.6 g/dL (3.4-4.8); Alkaline Phosphatase 44 U/L (40-129); Anion Gap 15 (5-15); BUN 39 mg/dL (4-19); BUN/Creat Ratio 8.1 RATIO (10-20); Carbon Dioxide 28.1 mmol/L (21.0-32.0); Chloride 96 mmol/L (98-108); Creatinine, Serum 4.82 mg/dL (0.70-1.20); EST Glomerular Filtration Rate 12 (>60); Globulin 2.4 g/dL (2.2-4.2); Glucose 101 mg/dL (70-99); Potassium 4.1 mmol/L (3.3-5.1); Sodium Level 139 mmol/L (133-145); Total Bilirubin 0.25 mg/dL (0.00-1.30)
[2025-03-03 06:30] LABS: Ferritin 63 ng/mL (37-417); Iron 45 ug/dL (65-175); Iron Binding Capacity,Total 242 ug/dL (250-450); Iron Binding Capacity,Unsat 197 ug/dL (228-428); Magnesium 2.2 mg/dL (1.5-2.2)
--- NOTE | 2025-03-03 09:09 | CASEMGMT ---
Addendum entered by Catherine Portillo 03/03/25 11:11: Pts brought in a financial power of maintenance technician 2nd shift. She states that this is the only thing she has and has made an appt for both herself and pt to complete HC POA with their maintenance technician 2nd shift. SW updated. Catherine Portillo DC Planning Asst Original Note: Discharge Planning Call placed to pts who confirmed that pt has a HC POA. She will bring in today. SW updated. Catherine Portillo DC Planning Asst.
[2025-03-03] MEDS: Pantoprazole Sodium 40 MG in 0.9% Normal Saline (100mL MB+) 100 ML 330 MG IV (11:21)
[2025-03-03] MEDS: 0.9% Normal Saline (100mL Bag) 100 ML 15 ML IV (11:22)
--- NOTE | 2025-03-03 13:01 | CHAPLAIN ---
Type of Pastoral Visit _x__ Initial Visit ___ Follow-up Visit ___ On-call Visit ___ General Patient Visit ___ Spiritual Assessment ___ Family Conference ___ Bereavement ___ Rapid Response ___ Code Blue ___ Other (describe below) Pastoral Care Referral From _x__ Patient ___ Family ___ Nurse ___ Physician ___ Spiral Machine Operator ___ Jig And Fixture Builder Apprentice ___ Other (describe below) Sacrament/Intervention _x__ Active listening ___ Anointing ___ Evangelical ___ Bereavement ___ Communion ___ Mee exploration ___ ___ Life review _x__ Prayer ___ Reconciliation ___ Sacrament of Sick _x__ Supportive presence ___ Wedding ___ Other (describe below) Pastoral Comments patient has been seen regularly in recent months; pt speaks of the ongoing issue and his late admission to the hospital; pt has not felt well or slept much recently and is losing blood; this condition is acknowledged as making it harder to cope with life; frustrations are mounting for pt who says why can't they find out what is going on or do different testing than the same old thing?; pt was offended when he was told by a medical person that he should consider hospice when he doesn't know me at all and I'm not ready for that; pt was offered palliative care also from medical people; this manager scientific gave some explanation of what palliative care is and does which was helpful for pt who did not understand it; spouse came into the room at this time and joined in the conversation; pt was asked about what he needs and if prayer would be helpful; pt said yes to prayer and when it was over, he was tearful; offered ongoing support
[2025-03-03 14:18] LABS: Hematocrit 23.9 % (40-54); Hemoglobin 7.7 g/dL (13.0-16.5)
--- NOTE | 2025-03-03 15:02 | CASEMGMT ---
REBECCA REDMOND NOTE: Tanya @ [facility] notified that pt has been admitted to [facility]. She verifies pt is on a TTS scheduled, chair time [id number]. Gordon JEROME RN CM
--- NOTE | 2025-03-03 16:30 | CASEMGMT ---
REBECCA REDMOND readmission note: Index admission: 02/08-02/10, GIB. Pt had EGD done 02/[address] Ross[address] Per ED physician note, Patient had 3 bleeding angiodysplastic lesions in the stomach. Treated with heater probe. Small hiatal hernia. 1 nonbleeding angiodysplastic lesion in the jejunum. Treated with heater probe. Recommendation by Dr. Ross after the procedure was hematology consult for Avastin therapy to prevent recurrent angiodysplastic lesions in the setting of the dialysis patient. Pt was going to [facility] for OP ST after recent CVA and dc'd 02/10 w/plan to resume this. Current admission: Admitted 03/03 w/LGIB. Pt reports having bright red blood BM's on arrival to ER. Pt w/hx of ischemic stroke, HTN, CHF with an EF of 25%, ESRD on HD Thursday, , Thursday and recurrent GI bleeds. Per ED note, patient saw Dr. Mera on 02/21/2025 for Avastin and per his note, given his comorbidities, he is a poor candidate. Pt was also dc'd home on protonix which was e[facility]scribed to [facility]. Pt also to f/u with his PCP after last admission, as well as Dr Ross. Pt had an appt scheduled w/Dr Ross today. REBECCA REDMOND to room to discuss readmission and discharge plan. Introduced self and role. Pt sitting up in chair in room, just getting off of the phone w/his . Pt states Dr Irene was just in to see him and was informed that plan is to transfer him to [facility] [place]. REBECCA REDMOND did discuss how things have been going for him since last admission. He states he did sweet pickle maker the Rx/protonix and is taking as prescribed. He also reports going to all scheduled appts that have scheduled since then, including appt w/SOFTWARE COMPUTER SPECIALIST, Federico, @ Dr Henning's office. He has an upcoming appt w/Dr Henning 03/07 to get established as a new pt. He is still going to [facility] for OP ST and states this has been going very well, stating he has had much improvement. He has 2 more visits remaining and that Raven GIBSON, informed him, if more visits are needed, she will work on getting this. Pt made aware [facility] has been updated on his admission to [facility] and voices appreciation. Discussed palliative care. Pt initially thought RN NYLA was referring to hospice, but did allow RN NYLA to educate on differences b/w palliative and hospice. He stated is not interested in a referral at this time, but was agreeable to taking info/handout on it and thanked REBECCA REDMOND for the info/education. He was made aware if he changes his mind re: referral in the future, to discuss this w/his PCP or other physicians. He voices understanding. Pt denies having further questions, concerns, or needs. Gordon LUECRON REBECCA CM
--- NOTE | 2025-03-03 18:41 | PN.HOSP_ITS ---
Reason for Visit Reason for Visit: Diagnoses Anemia, unspecified (03/03/25) Angiodysplasia of stomach and duodenum without bleeding (03/03/25) Hemorrhage of anus and rectum (03/03/25) Gastrointestinal hemorrhage, unspecified (03/03/25) End stage renal disease (03/03/25) Dependence on renal dialysis (03/03/25) Subjective Subjective Patient was seen and examined today , I talked with gastroenterology about his care, gastroenterology did not feel they could add to his care by doing any endoscopy, they felt that the patient needed either an angiogram or a deep endoscopy performed to try to locate the area of bleeding. Patient's repeat hemoglobin today was 7.7, I had a discussion with the patient concerning transfer to a tertiary facility and the patient was in agreement and ask if I could check with [facility] to see if they would accept him. I talked with [facility] earlier this evening, and they had a bed available. Patient will be transferred tonight. Objective Data Objective Data Vital Signs: Vital Signs Temp Pulse Resp BP Pulse Ox O2 Del Method 98.9 F 52 L 16 117/90 H 100 Room Air 03/03/25 15:33 03/03/25 15:33 03/03/25 15:33 03/03/25 15:33 03/03/25 15:33 03/03/25 16:30 Oxygen Delivery Method Room Air Weight: 88.5 kg Body Mass Index (BMI) 28.0 Intake & Output: Intake and Output for Last 24 Hours 03/01/25 03/02/25 03/03/25 23:59 23:59 23:59 Intake Total 110 / 110 517 / 517 Balance 110 / 110 517 / 517 Lab / Micro Data 03/03/25 14:00 03/03/25 03:43 Labs: Laboratory Results - last 24 hr 03/02/25 22:55: WBC 7.3, RBC 2.49 L, Hgb 7.7 L, Hct 24.7 L, MCV 99.2 H, MCH 30.9, MCHC 31.2 L, RDW Std Deviation 54.0 H, RDW Coeff of Brynn 14.9 H, Plt Count 165, MPV 11.2, Immature Gran % (Auto) 0.400, Neut % (Auto) 75.6 H, Lymph % (Auto) 9.9 L, Evangeline % (Auto) 11.7 H, Eos % (Auto) 1.8, Baso % (Auto) 0.6, Absolute Neuts (auto) 5.5, Absolute Lymphs (auto) 0.72 L, Nucleated RBC % 0, PT 14.8, INR 1.1, APTT 30.1, Sodium 137, Potassium 3.8, Chloride 94 L, Carbon Dioxide 29.2, Anion Gap 14, BUN 30 H, Creatinine 4.37 H, Estim Creat Clear Calc 18.21 L, Est GFR (MDRD) Non-Af 14 L, BUN/Creatinine Ratio 6.8 L, Glucose 135 H, Lactic Acid 1.8, Calcium 8.8, Total Bilirubin 0.29, AST 24, ALT < 5, Alkaline Phosphatase 49, Total Protein 6.4, Albumin 3.7, Globulin 2.6, Albumin/Globulin Ratio 1.4, Blood Type A POSITIVE, Antibody Screen NEGATIVE, Crossmatch See Detail 03/03/25 03:43: WBC 6.4, RBC 2.18 L, Hgb 6.9 L, Hct 21.6 L, MCV 99.1 H, MCH 31.7, MCHC 31.9 L, RDW Std Deviation 53.8 H, RDW Coeff of Brynn 14.9 H, Plt Count 161, MPV 11.7, Immature Gran % (Auto) 0.300, Neut % (Auto) 67.1, Lymph % (Auto) 15.2 L, Evangeline % (Auto) 15.0 H, Eos % (Auto) 1.9, Baso % (Auto) 0.5, Absolute Neuts (auto) 4.3, Absolute Lymphs (auto) 0.97, Nucleated RBC % 0, Sodium 139, Potassium 4.1, Chloride 96 L, Carbon Dioxide 28.1, Anion Gap 15, BUN 39 H, C reatinine 4.82 H, Estim Creat Clear Calc 16.20 L, Est GFR (MDRD) Non-Af 12 L, B UN/Creatinine Ratio 8.1 L, Glucose 101 H, Calcium 9.0, Magnesium 2.2, Iron 45 L, TIBC 242 L, Iron Saturation 18.0, Unsaturated IBC 197 L, Ferritin 63, Total Bilirubin 0.25, AST 22, ALT 5, Alkaline Phosphatase 44, Total Protein 6.0, Albumin 3.6, Globulin 2.4, Albumin/Globulin Ratio 1.5, TSH 1.430 03/03/25 14:00: Hgb 7.7 L, Hct 23.9 L Micro: Microbiology 03/03/25 02:43 Stool Stool Lactoferrin - Final 03/03/25 02:43 Stool Enteric Bacteriology - Final 03/03/25 02:43 Stool C. difficile GDH Antigen & Toxins - Final 03/03/25 02:43 Stool Clostridioides difficile (PCR) - Final 03/02/25 22:55 Stool Stool Occult Blood (LAMONTE) - Final Occult Blood Positive Physical Exam Const alert, oriented x3, no apparent distress and average body habitus General Appearance: cooperative, well kempt and well developed Orientation / Consciousness: awake, oriented to person, oriented to place and oriented to time HEENT normocephalic, head/scalp atraumatic and moist oral mucous membranes Eyes PERRL, EOMs intact bilaterally and conjunctivae normal Neck supple, no JVD, thyroid normal and no carotid bruits General: trachea midline Resp normal respiratory effort, no retractions, no use of accessory muscles and clear to auscultation bilaterally Auscultation: Negative for rales, rhonchi or wheezes Cardio regular rate, regular rhythm, S1 normal heart sound, S2 normal heart sound, no murmurs, no rub and no gallops GI normal to inspection, nondistended, normoactive bowel sounds, soft to palpation, non-tender and non-distended Extremity no clubbing, cyanosis or edema Skin no rashes or lesions noted General Skin Exam: no breakdown Neuro oriented x3, CN's II-XII intact bilaterally, moves all extremities, no focal motor deficits and no sensory deficits noted Sensorium / Orientation: awake and alert Speech: speech normal Psych affect normal Assessment & Plan Assessment/Plan (1) BRBPR (bright red blood per rectum): PLAN: Plan 1. Bright red rectal bleeding-thought to be secondary to bleeding from AVM- again patient will be transferred to [facility] for further care, he will need to get undergo a deep endoscopy or possibly an angiogram. 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
[2025-03-03] MEDS: Carvedilol 12.5 MG Tablet PO (18:48)
[2025-03-03] MEDS: SEVELAMER CARBONATE 800 MG TABLET PO (18:48)
--- NOTE | 2025-03-03 19:59 | DS.PCM_ITS ---
Providers Date of Admission: 03/03/25 Date of Discharge: 03/03/25 Primary Care Physician: Dr. Pavithra Henning MD Reason For Visit: LGIB WITH BRBPR Diagnosis Discharge Diagnosis (1) BRBPR (bright red blood per rectum): Status: Acute Code(s): K62.5 - Hemorrhage of anus and rectum Plan 1. Bright red rectal bleeding-thought to be secondary to bleeding from AVM- again patient will be transferred to [facility] for further care, he will need to get undergo a deep endoscopy or possibly an angiogram. 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-complicates care, management, recovery, and prognosis #5 essential hypertension #6 Aortic valvular heart disease-status post TAVR May 2024 Total clinical time spent by myself addressing the patient's medical issues, reviewing all of his data, and collaborating with patient's care team: 50 minutes Medications at Discharge Home Medications vitamin B complex-vitamin C-folic acid 0.8 mg tablet (Nephro-Christiano) 1 tab PO DAILY RENAL HEALTH 12/12/23 cyanocobalamin (vitamin B-12) 1,000 mcg tablet (Vitamin B-12) 1,000 mcg PO DAILY supplement 01/12/24 acetaminophen 500 mg tablet 1,000 mg PO BID PAIN 12/02/24 carvedilol 12.5 mg tablet 12.5 mg PO BID High bp 12/02/24 coenzyme Q10 200 mg capsule (Co Q-10) 200 mg PO DAILY supplement 12/02/24 epoetin beta, methoxy peg See Rx Instructions subcut .COMPLEX PRN low blood counts 12/02/24 sevelamer carbonate 800 mg tablet 800 mg PO TIDCM phosphate binder 12/27/24 ascorbic acid (vitamin C) 500 mg tablet 500 mg PO BID supplement #60 tabs 12/29/24 sensitar 90 mg PO 3XW 01/06/25 atorvastatin 40 mg tablet 40 mg PO QHS cholesterol #90 tabs 01/16/25 aspirin 81 mg chewable tablet 81 mg PO DAILY heart health 01/19/25 ferrous sulfate 325 mg (65 mg iron) tablet 325 mg PO .COMPLEX anemia 02/03/25 losartan 25 mg tablet 25 mg PO BID heart 02/03/25 pantoprazole 40 mg tablet,delayed release (Protonix) 40 mg PO BID stomach 30 days #60 tabs 02/10/25 vitamin D 1.25 1.25 mcg PO 3XD 02/22/25 heparin (porcine) 5,000 unit/mL injection solution 5,000 unit subcut ONCE 02/27/25 Hospital Course Operations None Procedures Blood transfusion Summary of Care Provided Minutes Spent on Discharge: 70 Hospital Course: This 69-year-old white male was seen in the emergency room at [facility] with a chief complaint of bright red rectal bleeding, he had been admitted multiple times to the hospital before for the same complaint, it was detected that he had angiodysplastic lesions in the past and was seen by gastroenterology. Hemoglobin in the emergency room was noted to be 7.7, chemistry profile showed a creatinine of 4.37 and a BUN of 30, patient's vital signs are stable. Patient was admitted to PCU and a CBC was repeated which showed his hemoglobin to be 6.9, he was transfused 1 unit of packed red blood cells and hemoglobin afterwards was 7.7. I had a long discussion with the patient after talking with his gynecological assistant by phone-his gynecological assistant (Dr. Ross) stated that he did not think that endoscopy was warranted on the patient and that he needed to go to a tertiary facility for deep endoscopy or an angiogram to determine the site of his bleeding. I discussed this with the patient and he agreed, a phone call was placed to [facility] (patient requested his hospital) and the patient was accepted there and they had a bed for the patient. On 03/03/25, patient was seen and examined: On examination he appeared in good health and spirits. Vital signs as documented. Skin warm and dry and without overt rashes. Neck without JVD, neck was supple, trachea midline, thyroid was normal. Lungs clear bilaterally, normal air movement was noted. Heart exam notable for regular rhythm, normal sounds and absence of murmurs, rubs or gallops. Abdomen unremarkable and without evidence of organomegaly, masses, or abdominal aortic enlargement. Bowel sounds are present, abdomen is not distended. Extremities nonedematous, no cyanosis was noted, no clubbing was noted. Neuro: Cranial nerves II through XII are grossly intact, no focal motor deficits were noted, sensation to light touch and pinprick intact, motor exam 5/5 throughout. Psych: Patient is alert and oriented x3, he does not appear anxious or depressed, he does not appear agitated. Patient was transferred to [facility] on 03/03/2025 in stable condition Weight / BMI Weight Weight: 88.5 kg Body Mass Index (BMI) 28.0 ABG / Lab / Microbiology Data 03/03/25 14:00 03/03/25 03:43 Laboratory: Laboratory Results - last 24 hr 03/02/25 22:55: WBC 7.3, RBC 2.49 L, Hgb 7.7 L, Hct 24.7 L, MCV 99.2 H, MCH 30.9, MCHC 31.2 L, RDW Std Deviation 54.0 H, RDW Coeff of Brynn 14.9 H, Plt Count 165, MPV 11.2, Immature Gran % (Auto) 0.400, Neut % (Auto) 75.6 H, Lymph % (Auto) 9.9 L, Placer % (Auto) 11.7 H, Eos % (Auto) 1.8, Baso % (Auto) 0.6, Absolute Neuts (auto) 5.5, Absolute Lymphs (auto) 0.72 L, Nucleated RBC % 0, PT 14.8, INR 1.1, APTT 30.1, Sodium 137, Potassium 3.8, Chloride 94 L, Carbon Dioxide 29.2, Anion Gap 14, BUN 30 H, Creatinine 4.37 H, Estim Creat Clear Calc 18.21 L, Est GFR (MDRD) Non-Af 14 L, BUN/Creatinine Ratio 6.8 L, Glucose 135 H, Lactic Acid 1.8, Calcium 8.8, Total Bilirubin 0.29, AST 24, ALT < 5, Alkaline Phosphatase 49, Total Protein 6.4, Albumin 3.7, Globulin 2.6, Albumin/Globulin Ratio 1.4, Blood Type A POSITIVE, Antibody Screen NEGATIVE, Crossmatch See Detail 03/03/25 03:43: WBC 6.4, RBC 2.18 L, Hgb 6.9 L, Hct 21.6 L, MCV 99.1 H, MCH 31.7, MCHC 31.9 L, RDW Std Deviation 53.8 H, RDW Coeff of Brynn 14.9 H, Plt Count 161, MPV 11.7, Immature Gran % (Auto) 0.300, Neut % (Auto) 67.1, Lymph % (Auto) 15.2 L, Placer % (Auto) 15.0 H, Eos % (Auto) 1.9, Baso % (Auto) 0.5, Absolute Neuts (auto) 4.3, Absolute Lymphs (auto) 0.97, Nucleated RBC % 0, Sodium 139, Potassium 4.1, Chloride 96 L, Carbon Dioxide 28.1, Anion Gap 15, BUN 39 H, C reatinine 4.82 H, Estim Creat Clear Calc 16.20 L, Est GFR (MDRD) Non-Af 12 L, B UN/Creatinine Ratio 8.1 L, Glucose 101 H, Calcium 9.0, Magnesium 2.2, Iron 45 L, TIBC 242 L, Iron Saturation 18.0, Unsaturated IBC 197 L, Ferritin 63, Total Bilirubin 0.25, AST 22, ALT 5, Alkaline Phosphatase 44, Total Protein 6.0, Albumin 3.6, Globulin 2.4, Albumin/Globulin Ratio 1.5, TSH 1.430 03/03/25 14:00: Hgb 7.7 L, Hct 23.9 L Microbiology: Microbiology 03/03/25 02:43 Stool Stool Lactoferrin - Final 03/03/25 02:43 Stool Enteric Bacteriology - Final 03/03/25 02:43 Stool C. difficile GDH Antigen & Toxins - Final 03/03/25 02:43 Stool Clostridioides difficile (PCR) - Final 03/02/25 22:55 Stool Stool Occult Blood (LAMONTE) - Final Occult Blood Positive D/C Instructions DC O2, CPAP, BIPAP Needs Home O2 Discharge instructions: No Meaningful Use Info Meaningful Use Meaningful Use Diagnoses (Choose all that apply): None applicable Ischemic Stroke Statin Dosing Therapy Reference: STATIN DOSE THERAPY REFERENCE: * Patients > 75 years receive moderate or high dose statin therapy. * Patients 75 years or YOUNGER should receive HIGH intensity statin dose unless contraindicated. You will be required to document reason for non-treatment if statin daily dose does not meet guidelines. HIGH DOSE STATIN THERAPY DAILY Atorvastatin > than or = to 40 mg Rosuvastatin > than or = to 20 mg Amlodipine + Atorvastatin > than or = to 2.5/40 mg Ezetimibe + Simvastatin 10/80 mg Simvastatin 80mg Discharge Plan Admission Admit Date/Time: 03/03/25 01:52 Attending Provider: Juan Irene Primary Care Provider: Pavithra Henning Consulting Providers: Landon Martinez Discharge Orders/Prescriptions Prescriptions: No Action carvedilol 12.5 mg tablet 12.5 mg PO BID Rx Instructions: Does not take on Tuesdays, , and Saturdays due to dialysis coenzyme Q10 [Co Q-10] 200 mg capsule 200 mg PO DAILY epoetin beta, methoxy peg [Mircera] See Rx Instructions subcut .COMPLEX PRN (Reason: low blood counts) Patient Comments: GETS AT [facility] Rx Instructions: only in dialysis subcutaneously PRN; administered by dialysis infusion sensitar 90 mg PO 3XW Patient Comments: GETS AT [facility] Rx Instructions: Dialysis days. Thu, sat heparin (porcine) 5,000 unit/mL solution 5,000 unit subcut ONCE Rx Instructions: Given as an infusion during dialysis ferrous sulfate 325 mg (65 mg iron) tablet 325 mg PO .COMPLEX Patient Comments: TAKES AT DINNER TIME Rx Instructions: 325 mg orally Thursday, , and Thu; vitamin D 1.25 1.25 mcg PO 3XD Rx Instructions: 1 total per day taken after dialysis on , , and Thursday acetaminophen 500 mg tablet 1,000 mg PO BID Nephro-Christiano 0.8 mg tablet 1 tab PO DAILY Patient Comments: TAKES IN AM ON THURSDAY, THURSDAY, THURSDAY, AND THURSDAY. TAKES AT DINNER TIME ON THURSDAY, THURSDAY, AND THURSDAY. cyanocobalamin (vitamin B-12) [Vitamin B-12] 1,000 mcg tablet 1,000 mcg PO DAILY sevelamer carbonate 800 mg tablet 800 mg PO TIDCM ascorbic acid (vitamin C) 500 mg tablet 500 mg PO BID Qty: 60 2RF aspirin 81 mg Tablet,Chewable 81 mg PO DAILY Patient Comments: TAKES AT DINNER TIME pantoprazole [Protonix] 40 mg tablet,delayed release (DR/EC) 40 mg PO BID 30 Days Qty: 60 1RF losartan 25 mg tablet 25 mg PO BID Rx Instructions: does not take am dose on dialysis days sat atorvastatin 40 mg tablet 40 mg PO QHS Qty: 90 3RF Referrals / Follow Up: Pavithra Henning MD [Primary Care Provider] - Disposition Discharge Orders: Discharge Patient (Routine); Ordered 03/03/25 Ordered By: Dr. Juan Irene Charges/Coding Visit Charges OBSV E&M: [id number] Observ/hosp same date L2
[2025-03-03] MEDS: Acetaminophen 500 MG Tablet 1000 MG PO (20:02)
[2025-03-03] MEDS: Pantoprazole Sodium 40 MG Tablet PO (20:02)
[2025-03-03] MEDS: 0.9% Saline Lock 10 ML Syringe IV (20:02)
[2025-03-03] MEDS: Ascorbic Acid 500 MG Tablet PO (20:02)
[2025-03-03] MEDS: Atorvastatin Calcium 40 MG Tablet PO (20:03)
[2025-03-03] MEDS: Losartan Potassium 25 MG Tablet PO (20:04)
== END 2025-03-03 22:12 | disposition short-term general hospital (02) | DRG 377 ==
LOC: ED 03-03 01:14 → PCU 03-03 01:55
PROVIDERS: Admitting Provider Internal Medicine; Emergency Provider Surgery; PCP Internal Medicine; Referring Provider Surgery; Visit Provider Internal Medicine
DX: K31.811 Angiodysplasia of stomach and duodenum with bleeding (principal); N18.6 End stage renal disease; I13.2 Hypertensive heart and chronic kidney disease with heart failure and with stage 5 chronic kidney disease, or end stage renal disease; D62 Acute posthemorrhagic anemia; I50.22 Chronic systolic (congestive) heart failure; M05.20 Rheumatoid vasculitis with rheumatoid arthritis of unspecified site; D63.1 Anemia in chronic kidney disease; I65.21 Occlusion and stenosis of right carotid artery; Q23.81 Bicuspid aortic valve; Z95.828 Presence of other vascular implants and grafts; Z99.2 Dependence on renal dialysis; F17.200 Nicotine dependence, unspecified, uncomplicated; D50.9 Iron deficiency anemia, unspecified; I25.10 Atherosclerotic heart disease of native coronary artery without angina pectoris; K21.9 Gastro-esophageal reflux disease without esophagitis; M19.90 Unspecified osteoarthritis, unspecified site; M54.9 Dorsalgia, unspecified; E66.3 Overweight; G89.29 Other chronic pain; Z95.2 Presence of prosthetic heart valve; Z68.29 Body mass index [BMI] 29.0-29.9, adult; Z86.73 Personal history of transient ischemic attack (TIA), and cerebral infarction without residual deficits; Z87.19 Personal history of other diseases of the digestive system; Z87.11 Personal history of peptic ulcer disease; Z86.79 Personal history of other diseases of the circulatory system; Z79.82 Long term (current) use of aspirin; Z86.718 Personal history of other venous thrombosis and embolism; Z79.899 Other long term (current) drug therapy
CPT/HCPCS: 36415; 80053; 82274; 82728; 83540; 83550; 83605; 83630; 83735; 84443; 85014; 85018; 85025; 85610; 85730; 86850; 86900; 86901; 87177; 87209; 87493; 87506; 97802; 99285; 99406; P9016; A4216

== ENCOUNTER 2025-03-16 01:44 | Observation (INO) | payer MEDICARE, BC, SELFPAY ==
[2025-02-10 11:35] VITALS: BMI 29.4
[2025-03-16] VITALS (28 sets, daily range): BP systolic 91–223; BP diastolic 48–98; PULSE 66–88; RESP 13–19; TEMP 36.2–37.2; O2SAT 96–100; BMI 28.1; BMI 27.8; BMI 26.9
--- NOTE | 2025-03-16 02:06 | ED.VIS.GI ---
HPI HPI - GI History of Present Illness Chief Complaint: GI Bleed Informant: patient and spouse/S.O. Narrative Narrative: 69-year-old male presenting with rectal bleeding. He states it was mixed in with dark stool, but the blood was bright red in the toilet, twice before coming here and then once after getting here. Started within the last hour or 2. No abdominal pain, nausea, vomiting. Feeling weak and tired and lightheaded but no syncope. This is different than when he had melena associated with stomach and duodenal angiodysplastic lesion bleeding. He has had that several times, the last time he was sent to [facility] and then forwarded to from there to have enteroscopy, which according to him and spouse did not show anything. He has history of diverticulosis as well. He takes baby aspirin no other antiplatelet or anticoagulant medications right now, he had a stroke/TIA several months ago. Following with Dr. Ross for the bleeding. He was referred to hematology for possible a Avastin therapy but he was not a good candidate for that, now patient states they are trying to get him approved for octreotide therapy. [facility] Medical History Chronic anemia CVA (cerebral vascular accident) ESRD (end stage renal disease) Symptomatic anemia Carotid stenosis, right ESRD (end stage renal disease) on dialysis Acute anemia Black stool History of transcatheter aortic valve replacement (TAVR) Wears glasses History of steroid therapy History of renal disease Low iron Rheumatoid arthritis Back pain Migraine headache Dietary restriction History of diverticulitis History of ulceration Shortness of breath on exertion Lymphedema History of echocardiogram Cardiology follow-up encounter Hypertension Chronic renal failure Anemia DVT (deep venous thrombosis) End stage renal disease on dialysis Secondary hyperparathyroidism Generalized weakness Acute on chronic anemia Acute upper GI bleed History of end stage renal disease History of renal dialysis Dialysis patient Hepatitis Smoker Bursitis Problem with dialysis access Rectal bleeding Subclavian aneurysm Kidney failure due to vascular disorder Cardiac disease Rheumatoid vasculitis Rheumatoid aortitis Home Medications ?Medication ?Instructions ?Recorded ?Last Taken ?Type vitamin B complex-vitamin C-folic 1 tab PO DAILY RENAL HEALTH 12/12/23 02/07/25 History acid 0.8 mg tablet (Nephro-Christiano) cyanocobalamin (vitamin B-12) 1,000 mcg PO DAILY supplement 01/12/24 02/08/25 History 1,000 mcg tablet (Vitamin B-12) acetaminophen 500 mg tablet 1,000 mg PO BID PAIN 12/02/24 02/08/25 History carvedilol 12.5 mg tablet 12.5 mg PO BID High bp 12/02/24 02/08/25 History coenzyme Q10 200 mg capsule (Co 200 mg PO DAILY supplement 12/02/24 02/08/25 History Q-10) epoetin beta, methoxy peg See Rx Instructions subcut 12/02/24 02/04/25 History .COMPLEX PRN low blood counts sevelamer carbonate 800 mg tablet 800 mg PO TIDCM phosphate binder 12/27/24 02/07/25 History ascorbic acid (vitamin C) 500 mg 500 mg PO BID supplement #60 tabs 12/29/24 01/19/25 Rx tablet sensitar 90 mg PO 3XW 01/06/25 02/07/25 History atorvastatin 40 mg tablet 40 mg PO QHS cholesterol #90 tabs 01/16/25 03/02/25 Rx aspirin 81 mg chewable tablet 81 mg PO DAILY heart health 01/19/25 01/19/25 History ferrous sulfate 325 mg (65 mg 325 mg PO .COMPLEX anemia 02/03/25 02/06/25 History iron) tablet losartan 25 mg tablet 25 mg PO BID heart 02/03/25 02/08/25 History pantoprazole 40 mg tablet,delayed 40 mg PO BID stomach 30 days #60 02/10/25 Unknown Rx release (Protonix) tabs vitamin D 1.25 1.25 mcg PO 3XD 02/22/25 Unknown History heparin (porcine) 5,000 unit/mL 5,000 unit subcut ONCE 02/27/25 Unknown History injection solution Allergy/AdvReac Type Severity Reaction Status Date / Time No Known Allergies Allergy Verified 03/16/25 01:48 Family History Father Heart disease Atrial fibrillation Mother , 88 Heart disease Myocardial infarction Brother Heart disease Myocardial infarction Surgical History History of cardiac catheterization Hx of colonoscopy with polypectomy History of esophagogastroduodenoscopy (EGD) Hx of arteriovenostomy for renal dialysis (~12/2019) Status post insertion of dialysis catheter (~11/2019) History of umbilical hernia s/p subclavian graft S/P knee surgery History of bicuspid aortic valve Social History household members: spouse housing: house Smoking Status: Light Smoker (<10/day) alcohol intake: never substance use type: does not use caffeine: Yes Type: coffee Number of servings: 2 ROS ROS ED Constitutional Constitutional ED: Reports weakness; Denies chills or fever(s) Eyes Eyes: Denies change in vision or diplopia ENT ENT ED: Denies rhinorrhea or sore throat Cardiovascular Cardiovascular: Reports lightheadedness; Denies chest pain, palpitations or syncope Respiratory/Chest Respiratory/Chest: Denies cough or dyspnea Gastrointestinal Gastrointestinal: Reports hematochezia; Denies abdominal pain, diarrhea, melena, nausea or vomiting Genitourinary Genitourinary ED: Denies dysuria or hematuria Musculoskeletal Musculoskeletal: Denies back pain or neck pain Integumentary Denies abscess or rash Neurologic Neurologic: Denies headache(s), paresthesias or weakness Psychiatric Psychiatric: Denies anxiety or suicidal thoughts EXAM Physical Exam Const Vital Signs: 03/16/25 01:44 03/16/25 01:58 03/16/25 02:58 Temperature 97.1 F L 98.1 F 97.8 F Temperature Source Oral Oral Oral Pulse Rate 88 73 69 Respiratory Rate 18 16 18 Blood Pressure 100/86 H 100/86 H 92/61 Blood Pressure Mean 90 90 71 Pulse Ox 99 98 96 Oxygen Delivery Method Room Air Room Air Room Air 03/16/25 03:00 Temperature 97.8 F Temperature Source Oral Pulse Rate 69 Respiratory Rate 18 Blood Pressure 92/61 Blood Pressure Mean 71 Pulse Ox 96 Oxygen Delivery Method Room Air Positive well nourished and well developed General Appearance ED: well developed and NAD HEENT Reports moist mucous membranes normocephalic and atraumatic Eyes PERRL and EOMs intact bilaterally Neck full ROM and supple Resp normal respiratory effort and clear to auscultation bilaterally Cardio regular rate, regular rhythm and no murmurs Rate: Negative for tachycardic GI non-tender and non-distended GI Narrative: On rectal, there is a small amount of dark red blood but no active bleeding or pooling. No tenderness. Auscultation: normoactive bowel sounds Palpation: soft Back/Spine no CVA tenderness General Back: other FROM Extremity normal to inspection General Extremety ED: Negative for edema, pulses abnormal or tenderness General Extremity: Negative for edema or pulses abnormal Neuro oriented x3, CN's II-XII intact bilaterally and no sensory deficits noted Sensorium / Orientation: awake and alert Motor Exam: strength 5/5 throughout Skin no rashes or lesions noted and no wounds MDM MDM MDM Narrative Medical decision making narrative: Concern for this potentially being a diverticular bleed rather than his angiodysplasia, but both are in the differential. He is down more than 1 g of hemoglobin compared to 2 weeks ago. Given that he still has bleeding although it is not severe at this time, I am ordering him 2 units of blood, we discussed the pros and cons of transfusion which he has had before and he consents to getting a transfusion. On my reevaluation the patient is feeling okay, he is not actively bleeding right now, but his blood pressure is 82 systolic so I am having nurses skip orthostatics and I am giving him some IV fluids. Plan is for admission, but since he is already responding positively to the for small amount of the IV fluids I think he can go to PCU as opposed to the unit. He is doing well clinically. It is 3 AM and today is dialysis today, nurses of confirm we have the capability he follows with Dr. Russo. Lab Data Attestation: I reviewed the patient's lab results. Labs: Laboratory Results - last 24 hr 03/16/25 02:16 WBC 6.5 RBC 2.04 L Hgb 6.5 L Hct 20.7 L MCV 101.5 H MCH 31.9 MCHC 31.4 L RDW Std Deviation 61.4 H RDW Coeff of Brynn 17.1 H Plt Count 189 MPV 10.6 Immature Gran % (Auto) 0.500 Neut % (Auto) 69.3 Lymph % (Auto) 16.6 L Russell % (Auto) 10.7 H Eos % (Auto) 2.6 Baso % (Auto) 0.3 Absolute Neuts (auto) 4.5 Absolute Lymphs (auto) 1.07 Nucleated RBC % 0 Sodium 138 Potassium 4.4 Chloride 96 L Carbon Dioxide 27.8 Anion Gap 15 BUN 42 H Creatinine 6.43 H Estim Creat Clear Calc 12.18 L Est GFR (MDRD) Non-Af 9 L BUN/Creatinine Ratio 6.5 L Glucose 112 H Calcium 8.5 Blood Type A POSITIVE Antibody Screen NEGATIVE Crossmatch See Detail Management Discussion w/another healthcare provider: Hospitalist Critical Care Time Critical Care Time: Yes Critical care time (excluding procedures): 30-74 minutes (38 min), Including time spent:, Discussing w/Patient &/or Family/Supervisor [employer], Discussing w/Consultants, Arranging Admission or Transfer and Performing Direct Patient Care at Bedside Discharge Plan Dx/Rx/DC Orders Clinical Impression: Acute on chronic blood loss anemia, Angiodysplasia of stomach and duodenum, Acute lower GI bleeding, Diverticulosis, ESRD on hemodialysis Disposition Disposition: Acute Care [facility]
[2025-03-16 02:28] LABS: Absolute Lymphocyte Count 1.07 X10^3/uL (0.83-4.51); Absolute Neutrophil Count 4.5 X10^3/uL (2.0-7.7); Basophil# 0.02 X10^3/uL; Basophil% 0.3 % (0-1); Eosinophil# 0.17 X10^3/uL; Eosinophils% 2.6 % (0-5); Hematocrit 20.7 % (40-54); Hemoglobin 6.5 g/dL (13.0-16.5); Lymphocyte # 1.07 X10^3/ul (0.83-4.51); Lymphocyte % 16.6 % (19-41); Mean Corp Hgb Conc 31.4 g/dL (32-36); Mean Corpuscular Hgb 31.9 pg (27.0-32.0); Mean Corpuscular Volume 101.5 fL (80-94); Mean Platelet Vol. 10.6 fl (6.2-12.0); Monocyte# 0.69 X10^3/uL; Monocyte% 10.7 % (0-10); NRBC Flagged by Analyzer 0 % (0-5); Neutrophil # 4.48 X10^3/uL (2.7-7.7); Neutrophil % 69.3 % (47-70); Platelet Count 189 K/mm3 (150-450); RBC Distribution Width CV 17.1 % (11.6-14.6); RBC Distribution Width SD 61.4 fl (35.1-43.9); Red Blood Count 2.04 M/mm3 (4.6-6.2); White Blood Count 6.5 K/mm3 (4.4-11.0)
[2025-03-16 02:46] LABS: Anion Gap 15 (5-15); BUN 42 mg/dL (4-19); BUN/Creat Ratio 6.5 RATIO (10-20); Calcium,Total 8.5 mg/dL (7.6-11.0); Carbon Dioxide 27.8 mmol/L (21.0-32.0); Chloride 96 mmol/L (98-108); Creatinine, Serum 6.43 mg/dL (0.70-1.20); EST Glomerular Filtration Rate 9 (>60); Estimated Creatinine Clearance 12.18 ml/min (50-250); Glucose 112 mg/dL (70-99); Potassium 4.4 mmol/L (3.3-5.1); Sodium Level 138 mmol/L (133-145)
[2025-03-16] MEDS: 0.9% Normal Saline (500mL Bag) 500 ML 999 ML IV (03:33)
--- NOTE | 2025-03-16 03:36 | HP.PCM.HOS_ITS ---
[facility] Date of Service: 03/16/25 Chief Complaint: LGIB with BRBPR. [facility] Narrative BINDU DUMONT, is a 69 M with a past medical history of essential hypertension; on losartan and carvedilol, overweight with BMI of 27.4 this admission, ESRD; on HD (), chronic anemia; primarily due to renal disease with superimposed BERTRAND on oral ferrous sulfate and epoetin beta, history of bicuspid aortic valve with insufficiency; s/p TAVR (04/2024), history of CAD; with patient in need of stent when he can tolerate aspirin, chronic systolic CHF; LVEF ~25% (09/2024), RA; with associated rheumatoid vasculitis and aortitis, history of subclavian aneurysm (~2014); s/p subclavian graft, history of RUE DVT due to aneurysm (~2014), hepatitis C positive; with genotype 1b without cirrhosis PCR RNA quant was 1 million with patient having completed Epclusa therapy x 12 weeks with subsequent PCR RNA quant continuing to be normal, history of diverticulitis, history of colonoscopy with polypectomy (2023), history of umbilical hernia, history of lower extremity lymphedema, chronic tobacco abuse, history of migraine headache, GERD with history of PUD causing for peptic ulcers cauterized in the past; on pantoprazole, OA; with history of knee surgery and chronic back pain and recent admission here from December 27, 2024 to December 29, 2024 for treatment of Melanotic Stools with increased weakness and fatigue for ~4-5 days secondary to UGIB with 1 unit of PRBCs ordered and patient found to have a single bleeding angiodysplastic lesion in the stomach treated with a heater probe by Dr. Ross of gastroenterology in addition to elevated troponin suspected to be due to demand ischemia followed by most recent admission here from February 08, 2025 to February 10, 2025 for treatment of black tarry stools 3 times daily but the patient noted to have three ~5 mm angiodysplastic lesions found in the greater curvature of the stomach in addition to three ~6 mm angiodysplastic lesions found in the second and third portion of the duodenum on EGD with patient subsequently treated with heater probe for hemostasis with subsequent recommendation by Dr. Ross for patient to potentially undergo a Avastin therapy to prevent recurrent angiodysplastic lesions in the setting of being on chronic hemodialysis but unfortunately he was not deemed to be suitable candidate for this agent by oncology followed by another more recent admission on March 03, 2025 for yet another episode of recurrent LGIB with BRBPR in the setting of known chronic anemia with patient requiring transfusion for hemoglobin of 6.9 g/dL prior to him being transferred to [facility] for further evaluation and treatment with subsequent workup that was apparently unrevealing and with Dr. Ross of gastroenterology trying to get him approved for octreotide therapy who now re-presents to [facility] ER complaining of another lower GI bleed with BRBPR. Mr. Dumont reports his symptoms began approximately 2 hours prior to arrival with patient having recurrent rectal bleeding that he states was mixed with dark stool that was bright red blood in the toilet. He then had a second episode of BRBPR shortly after arrival. He admits to feeling generally weak and tired but he denies syncope or near syncope. He also denies associated fever, chills, abdominal pain, nausea, vomiting, constipation, chest pain, palpitations, heart racing, headache or rash. In the ER he was diagnosed with recurrent LGIB with BRBPR with severe acute blood loss anemia of 6.5 g/dL present on admission requiring transfusion of PRBC's and he was then admitted to the PCU for ongoing care for a stay that is expected to extend beyond 2 midnights. [facility] Medical History Chronic anemia CVA (cerebral vascular accident) ESRD (end stage renal disease) Symptomatic anemia Carotid stenosis, right ESRD (end stage renal disease) on dialysis Acute anemia Black stool History of transcatheter aortic valve replacement (TAVR) Wears glasses History of steroid therapy History of renal disease Low iron Rheumatoid arthritis Back pain Migraine headache Dietary restriction History of diverticulitis History of ulceration Shortness of breath on exertion Lymphedema History of echocardiogram Cardiology follow-up encounter Hypertension Chronic renal failure Anemia DVT (deep venous thrombosis) End stage renal disease on dialysis Secondary hyperparathyroidism Generalized weakness Acute on chronic anemia Acute upper GI bleed History of end stage renal disease History of renal dialysis Dialysis patient Hepatitis Smoker Bursitis Problem with dialysis access Rectal bleeding Subclavian aneurysm Kidney failure due to vascular disorder Cardiac disease Rheumatoid vasculitis Rheumatoid aortitis Home Medications ?Medication ?Instructions ?Recorded ?Last Taken ?Type vitamin B complex-vitamin C-folic 1 tab PO DAILY RENAL HEALTH 12/12/23 02/07/25 History acid 0.8 mg tablet (Nephro-Christiano) cyanocobalamin (vitamin B-12) 1,000 mcg PO DAILY suppl ement 01/12/24 02/08/25 History 1,000 mcg tablet (Vitamin B-12) acetaminophen 500 mg tablet 1,000 mg PO BID PAIN 12/0202/08/25 History carvedilol 12.5 mg tablet 12.5 mg PO BID High bp 12/0202/08/25 History coenzyme Q10 200 mg capsule (Co 200 mg PO DAILY supple ment 12/02/24 02/08/25 History Q-10) epoetin beta, methoxy peg See Rx Instructions subcut 0 12/02/24 02/04/25 History .COMPLEX PRN low blood counts sevelamer carbonate 800 mg tablet 800 mg PO TIDCM phos phate binder 12/27/24 02/07/25 History ascorbic acid (vitamin C) 500 mg 500 mg PO BID supplem ent #60 tabs 12/29/24 01/19/25 Rx tablet sensitar 90 mg PO 3XW 01/06/25 History atorvastatin 40 mg tablet 40 mg PO QHS cholesterol #90 tabs 01/16/25 03/02/25 Rx aspirin 81 mg chewable tablet 81 mg PO DAILY heart hea lth 01/19/25 01/19/25 History ferrous sulfate 325 mg (65 mg 325 mg PO .COMPLEX anemi a 02/03/25 02/06/25 History iron) tablet losartan 25 mg tablet 25 mg PO BID heart 02/03/25 02/08/25 History pantoprazole 40 mg tablet,delayed 40 mg PO BID stomach 30 days #60 02/10/25 Unknown Rx release (Protonix) tabs vitamin D 1.25 1.25 mcg PO 3XD 02/22/25 Unk nown History heparin (porcine) 5,000 unit/mL 5,000 unit subcut ONCE 02/27/25 Unknown History injection solution Allergy/AdvReac Type Severity Reaction Status Date / Time No Known Allergies Allergy Verified 03/16/25 01:48 Family History Father Heart disease Atrial fibrillation Mother , 88 Heart disease Myocardial infarction Brother Heart disease Myocardial infarction Surgical History History of cardiac catheterization Hx of colonoscopy with polypectomy History of esophagogastroduodenoscopy (EGD) Hx of arteriovenostomy for renal dialysis (~12/2019) Status post insertion of dialysis catheter (~11/2019) History of umbilical hernia s/p subclavian graft S/P knee surgery History of bicuspid aortic valve Social History household members: spouse housing: house Smoking Status: Light Smoker (<10/day) alcohol intake: never substance use type: does not use caffeine: Yes Type: coffee Number of servings: 2 ROS ROS Narrative Review of Systems: Constitutional: Patient admits to generalized weakness but he denies fever or chills. Eyes: Patient denies changes in vision or discharge from eyes. ENT: Patient denies runny nose, sore throat or ear pain. CV: Patient admits to lightheadedness but he denies chest pain, palpitations, heart racing, syncope or near syncope. GI: Patient admits to LGIB with BRBPR but he denies abdominal pain, nausea, vomiting, diarrhea or constipation. : Patient denies dysuria or hematuria. MSK: Patient denies arthralgias or myalgias. Skin: Patient denies rash, abscess, wounds or jaundice. Psych: Patient denies symptoms of uncontrolled depression or anxiety. Neuro: Patient denies headache, paresthesias or focal neurologic deficits. Allergy: Patient denies lip swelling, tongue swelling or urticaria. Hematology: Patient admits to recurrent LGIB with BRBPR. Endocrinology: Patient denies polyuria, polydipsia, polyphagia or heat/cold intolerance. 14 point ROS otherwise negative except for positives noted above in HPI. Vital Signs Vital Signs Vital Signs: 03/16/25 01:44 03/16/25 01:58 03/16/25 02:58 Temperature 97.1 F L 98.1 F 97.8 F Temperature Source Oral Oral Oral Pulse Rate 88 73 69 Respiratory Rate 18 16 18 Blood Pressure 100/86 H 100/86 H 92/61 Blood Pressure Mean 90 90 71 Pulse Ox 99 98 96 Oxygen Delivery Method Room Air Room Air Room Air 03/16/25 03:00 Temperature 97.8 F Temperature Source Oral Pulse Rate 69 Respiratory Rate 18 Blood Pressure 92/61 Blood Pressure Mean 71 Pulse Ox 96 Oxygen Delivery Method Room Air Weight Weight: 196 lb 6.91 oz Body Mass Index (BMI) 28.1 Physical Exam Const alert, oriented x3, no apparent distress and average body habitus General Appearance: cooperative HEENT normocephalic, head/scalp atraumatic, hearing grossly normal bilaterally and moist oral mucous membranes Eyes PERRL and EOMs intact bilaterally Neck no lymphadenopathy, supple and no JVD Resp normal respiratory effort, no retractions, no use of accessory muscles and clear to auscultation bilaterally Cardio regular rate and regular rhythm GI normal to inspection, nondistended, normoactive bowel sounds, soft to palpation, non-tender and non-distended Extremity normal to inspection, full ROM and no clubbing, cyanosis or edema Skin Skin Narrative: Patient is evidence of rash, abscess, wounds or jaundice. Neuro oriented x3, CN's II-XII intact bilaterally, moves all extremities and no focal motor deficits Sensorium / Orientation: awake, alert, oriented to person, oriented to place and oriented to time Speech: speech normal Psych affect normal Results Medical Records Data Attestation: I reviewed the patient's medical records Lab / Micro Data Attestation: I reviewed the patient's lab results. 03/16/25 02:16 03/16/25 02:16 Labs: Laboratory Results - last 24 hr 03/16/25 02:16: WBC 6.5, RBC 2.04 L, Hgb 6.5 L, Hct 20.7 L, MCV 101.5 H, MCH 31.9, MCHC 31.4 L, RDW Std Deviation 61.4 H, RDW Coeff of Brynn 17.1 H, Plt Count 189, MPV 10.6, Immature Gran % (Auto) 0.500, Neut % (Auto) 69.3, Lymph % (Auto) 16.6 L, Glynn % (Auto) 10.7 H, Eos % (Auto) 2.6, Baso % (Auto) 0.3, Absolute Neuts (auto) 4.5, Absolute Lymphs (auto) 1.07, Nucleated RBC % 0, Sodium 138, Potassium 4.4, Chloride 96 L, Carbon Dioxide 27.8, Anion Gap 15, BUN 42 H, C reatinine 6.43 H, Estim Creat Clear Calc 12.18 L, Est GFR (MDRD) Non-Af 9 L, B UN/Creatinine Ratio 6.5 L, Glucose 112 H, Calcium 8.5, Blood Type A POSITIVE, Antibody Screen NEGATIVE, Crossmatch See Detail Assessment & Plan Assessment/Plan (1) Acute on chronic blood loss anemia: (2) BRBPR (bright red blood per rectum): (3) LGI bleed: (4) Angiodysplasia of stomach and duodenum: (5) ESRD on hemodialysis: (6) Diverticulosis: (7) CVA (cerebral vascular accident): QUALIFIERS: CVA mechanism: unspecified Qualified Code(s): I63.9 - Cerebral infarction, unspecified PLAN: Plan 1. Recurrent LGIB with BRBPR with gripu-ym-ivybefi anemia requiring transfusion with hemoglobin of 6.5 g/dL present on admission with superimposed BERTRAND on ferrous sulfate while on HD - Admit to PCU. Type and screen blood and transfuse one unit of PRBC's. Keep n.p.o. until GI evaluation. We will consult Dr. Ross of gastroenterology to see patient on rounds in the a.m. for further recommendations regarding possible colonoscopy this admission. 2. Recent admission here for LGIB with BRBPR on March 03, 2025 before transferring to [facility] and another from February 08, 2025 to February 10, 2025 for treatment of black tarry stools 3 times daily but the patient noted to have three ~5 mm angiodysplastic lesions found in the greater curvature of the stomach in addition to three ~6 mm angiodysplastic lesions found in the second and third portion of the duodenum on EGD with patient subsequently treated with heater probe for hemostasis with subsequent recommendation by Dr. Ross for patient to potentially undergo a Avastin therapy to prevent recurrent angiodysplastic lesions in the setting of being on chronic hemodialysis but unfortunately he was not deemed to be suitable candidate for this agent by oncology and cancer registrar currently trying to get this patient approved for octretotide complicating #1 - Noted. 3. History of admission here from December 27, 2024 to December 29, 2024 for treatment of Melanotic Stools with increased weakness and fatigue for ~4-5 days secondary to UGIB with 1 unit of PRBCs ordered and patient found to have a single bleeding angiodysplastic lesion in the stomach treated with a heater probe by Dr. Ross of gastroenterology in addition to elevated troponin suspected to be due to demand ischemia compounding #1 & #2. 4. History of Ischemic CVA; likely due to significant Right Carotid Artery Stenosis with CTA of the head and neck with IV contrast that revealed soft and calcific plaque formation of the Right carotid bulb and internal carotid artery with an associated ~70% luminal stenosis with contrast seen beyond throughout the remainder of the Right internal coronary artery with recommended follow-up with vascular surgery adding to the medical complexity of #1 - #3 - Noted. 5. History of CAD; with patient in need of stent when he can tolerate aspirin amplifying the pathology of #1 - #4 - Serialize troponin to ensure continued stability. 6. ESRD; on HD since 2019 (--Thu) with most recent dialysis yesterday - We will consult nephrology to see this patient on-rounds in AM with help appreciated in advance. 7. Chronic Tobacco Abuse in vasculopathic dialysis patient adding to the already significant burden of disease outlined from #1 - #4 - Tobacco Cessation will be strongly encouraged with no nicotine patch offered in light of #1 - #6. 8. Essential Hypertension; on losartan and carvedilol - Hold scheduled antihypertensives in light of #1. Give hydralazine IV as needed for systolic blood pressure greater than 160 mmHg. 9. Overweight with BMI of 28.2 this admission - Weight loss will be recommended. 10. History of bicuspid aortic valve with insufficiency; s/p TAVR (04/2024) - Noted. 11. Chronic systolic CHF; LVEF ~25% (09/2024) - Stable with no current evidence of volume overload. 12. RA; with associated rheumatoid vasculitis and aortitis - Stable. 13. History of subclavian aneurysm (~2014); s/p subclavian graft - Noted. 14. History of RUE DVT due to aneurysm (~2014) - Noted with no evidence of recurrence at this time. 15. Hepatitis C positive; with genotype 1b without cirrhosis PCR RNA quant was 1 million with patient having completed Epclusa therapy x 12 weeks with subsequent PCR RNA quant continuing to be normal followed by Dr. Ross of gastroenterology - Noted. 16. History of diverticulitis - Noted. 17. History of colonoscopy with polypectomy (2023) - Noted. 18. History of umbilical hernia - Noted. 19. History of lower extremity lymphedema - Resolved. 20. History of migraine headache - Previously resolved. 21. GERD with history of PUD causing for peptic ulcers cauterized in the past; on pantoprazole - Maintain PPI IV. 22. OA; with history of knee surgery and chronic back pain - Stable. 23. DVT prophylaxis - SCD's only in light of #1. Total time: Approximately (but not less than) 75 minutes. Charges/Coding Visit Charges Inpatient E&M: 92137 Init Hosp L3
[2025-03-16 05:12] LABS: Magnesium 2.1 mg/dL (1.5-2.2)
[2025-03-16] MEDS: 0.9% Normal Saline 1,000 ML IV.SOLN. 1000 ML OPERA.SITE (08:13)
[2025-03-16] MEDS: PureFlow B 2K Dialysis Soln 1 BAG 6 BAG PF (08:13)
--- NOTE | 2025-03-16 08:28 | PN.HOSP_ITS ---
Reason for Visit Reason for Visit: Diagnoses Acute posthemorrhagic anemia (03/16/25) Cerebral infarction, unspecified (03/16/25) Angiodysplasia of stomach and duodenum without bleeding (03/16/25) Diverticulosis of intestine, part unspecified, without perforation or abscess without bleeding (03/16/25) Hemorrhage of anus and rectum (03/16/25) Gastrointestinal hemorrhage, unspecified (03/16/25) End stage renal disease (03/16/25) Dependence on renal dialysis (03/16/25) Objective Data Objective Data Vital Signs: Vital Signs Temp Pulse Resp BP Pulse Ox O2 Del Method 97.8 F 72 14 123/78 H 100 Room Air 03/16/25 07:45 03/16/25 08:15 03/16/25 08:15 03/16/25 08:15 03/16/25 07:45 03/16/25 08:15 Oxygen Delivery Method Room Air Weight: 88 kg Body Mass Index (BMI) 27.8 Intake & Output: Intake and Output for Last 24 Hours 03/14/25 03/15/25 03/16/25 23:59 23:59 23:59 Intake Total 950 / 950 Balance 950 / 950 Lab / Micro Data 03/16/25 02:16 03/16/25 02:16 Labs: Laboratory Results - last 24 hr 03/16/25 02:16: WBC 6.5, RBC 2.04 L, Hgb 6.5 L, Hct 20.7 L, MCV 101.5 H, MCH 31.9, MCHC 31.4 L, RDW Std Deviation 61.4 H, RDW Coeff of Brynn 17.1 H, Plt Count 189, MPV 10.6, Immature Gran % (Auto) 0.500, Neut % (Auto) 69.3, Lymph % (Auto) 16.6 L, Summers % (Auto) 10.7 H, Eos % (Auto) 2.6, Baso % (Auto) 0.3, Absolute Neuts (auto) 4.5, Absolute Lymphs (auto) 1.07, Nucleated RBC % 0, Sodium 138, Potassium 4.4, Chloride 96 L, Carbon Dioxide 27.8, Anion Gap 15, BUN 42 H, C reatinine 6.43 H, Estim Creat Clear Calc 12.18 L, Est GFR (MDRD) Non-Af 9 L, B UN/Creatinine Ratio 6.5 L, Glucose 112 H, Calcium 8.5, Magnesium 2.1, Blood Type A POSITIVE, Antibody Screen NEGATIVE, Crossmatch See Detail
--- NOTE | 2025-03-16 10:50 | CASEMGMT ---
Hospitalist updated RN CM that patient will be discharging on octreotide acetate. REBECCA REDMOND called [facility], medication is not covered by insurance, cost is $39.09 and needs PA, medication also need to be order and will be available tomorrow, hospitalist updated and ok with medication starting tomorrow. [facility] provided PA information and REBECCA REDMOND completed PA with insurance and requested it be expedited, ref #[id number]. Also clinical information was faxed [phone]. REBECCA REDMOND updated patient regarding medication. CM will continue to follow this patient and plan for a safe discharge.
[2025-03-16 11:37] LABS: Hematocrit 25.5 % (40-54); Hemoglobin 8.3 g/dL (13.0-16.5)
--- NOTE | 2025-03-16 12:18 | PCM.DC.SUM ---
Providers Date of Admission: 03/16/25 Date of Discharge: 03/16/25 Primary Care Physician: Dr. Pavithra Henning MD Consultations 03/16/25 04:54 Consult: Gastroenterology Routine Consulting Provider: [facility] Reason for Consult: Recurrent LGIB with BRBPR EMERGENT Consult: No Notified: Yes Date Notified: 03/16/25 Time Notified: 05:20 Method of Notification: Text Consult: Nephrology Routine Consulting Provider: Hanh Russo Reason for Consult: ESRD on HD (). EMERGENT Consult: No Notified: Yes Date Notified: 03/16/25 Time Notified: 05:17 Method of Notification: Answering Service Reason For Visit: LGIB; WITH BRBPR (RECURRET) WITH ABLA REQ XFUSION Diagnosis Discharge Diagnosis (1) Acute on chronic blood loss anemia: Status: Chronic Code(s): D62 - Acute posthemorrhagic anemia (2) BRBPR (bright red blood per rectum): Status: Acute Code(s): K62.5 - Hemorrhage of anus and rectum (3) LGI bleed: Status: Acute Code(s): K92.2 - Gastrointestinal hemorrhage, unspecified (4) Angiodysplasia of stomach and duodenum: Status: Acute Code(s): K31.819 - Angiodysplasia of stomach and duodenum without bleeding (5) ESRD on hemodialysis: Status: Acute Code(s): N18.6 - End stage renal disease; Z99.2 - Dependence on renal dialysis (6) Diverticulosis: Status: Acute Code(s): K57.90 - Diverticulosis of intestine, part unspecified, without perforation or abscess without bleeding (7) CVA (cerebral vascular accident): Status: Acute Code(s): I63.9 - Cerebral infarction, unspecified Qualifiers: CVA mechanism: unspecified Qualified Code(s): I63.9 - Cerebral infarction, unspecified Medications at Discharge Home Medications vitamin B complex-vitamin C-folic acid 0.8 mg tablet (Nephro-Christiano) 1 tab PO DAILY RENAL HEALTH 12/12/23 cyanocobalamin (vitamin B-12) 1,000 mcg tablet (Vitamin B-12) 1,000 mcg PO DAILY supplement 01/12/24 acetaminophen 500 mg tablet 1,000 mg PO BID PAIN 12/02/24 carvedilol 12.5 mg tablet 12.5 mg PO BID High bp 12/02/24 coenzyme Q10 200 mg capsule (Co Q-10) 200 mg PO DAILY supplement 12/02/24 epoetin beta, methoxy peg See Rx Instructions subcut .COMPLEX PRN low blood counts 12/02/24 sevelamer carbonate 800 mg tablet 800 mg PO TIDCM phosphate binder 12/27/24 ascorbic acid (vitamin C) 500 mg tablet 500 mg PO BID supplement #60 tabs 12/29/24 sensitar 90 mg PO 3XW ckd 01/06/25 atorvastatin 40 mg tablet 40 mg PO QHS cholesterol #90 tabs 01/16/25 aspirin 81 mg chewable tablet 81 mg PO DAILY heart health 01/19/25 ferrous sulfate 325 mg (65 mg iron) tablet 325 mg PO .COMPLEX anemia 02/03/25 losartan 25 mg tablet 25 mg PO BID heart 02/03/25 pantoprazole 40 mg tablet,delayed release (Protonix) 40 mg PO BID stomach 30 days #60 tabs 02/10/25 vitamin D 1.25 1.25 mcg PO 3XD supp 02/22/25 heparin (porcine) 5,000 unit/mL injection solution 5,000 unit subcut ONCE 02/27/25 octreotide acetate 100 mcg/mL injection solution 100 mcg subcut TID #10 mL 03/16/25 Hospital Course Operations None Procedures Blood transfusion and Dialysis Summary of Care Provided Minutes Spent on Discharge: 38 Hospital Course: Mr. Joe is a 69-year-old white male who has a history of recurrent admissions for lower GI bleeds due to recurrent angiodysplastic lesions in his GI tract. He gets these due to his chronic renal disease and dialysis needs and has been evaluated for a renal transplant however is not a candidate for to his baseline cardiac function. Given this he has had recurrent GI bleeds. He has had multiple scopes with cauterization and continues to get bleeds due to angiodysplastic lesions. He follows closely with GI as an outpatient and they had him referred to try to get him on Avastin for his recurrent angiodysplastic lesions however oncology felt that the risk was too great given his cardiac disease at baseline and he was declined. I did discuss the case with Dr. Ross and he would like to try octreotide as a last ditch effort to help decreasing his frequency of GI bleeds due to his angiodysplastic lesions so he suggested we start him on subcu octreotide 100 mcg 3 times daily. The patient presented to the emergency department at [facility] early this morning on 03/16/2025 due to bright red blood per rectum. As noted above he is extensive workup for this in the past and was last time transferred to both [facility] and [facility] and they were not able to do anything to help him either. 2 hours prior to presentation he had rectal bleeding with bright red blood per rectum and dark stool with a second episode just prior to arrival. He is on dialysis at baseline and was due for dialysis on the day of admission. He was transfused 2 units of packed red blood cells and received dialysis. His hemoglobin up prior to transfusion was 6.5 after transfusion and dialysis was 8.3 and stable. He is not having any ongoing bright red blood per rectum and I did discuss the case with Dr. Ross he felt we could discharge him with close follow-up. He has an appointment to see Dr. Ross in the office on 03/23/2025 and we were able to obtain an preauthorize octreotide subcu 3 times daily prior to discharge. He is to pick this up at the pharmacy tomorrow and start injections. He was instructed in injection and drawing up the medication prior to discharge. Nursing reviewed this with him extensively and he felt comfortable. He was able to be discharged home in stable condition on 03/16/2025 with a prescription for octreotide to start tomorrow when it is available at the pharmacy. No other medication changes were made at that time. He is to follow-up with his primary care physician and on as needed basis. Continue dialysis as currently scheduled and follow-up with Dr. Ross as noted above. The patient was initially admitted under full admission status however it was later determined that the patient does not require full admission status and his status was changed to outpatient status after discussion with utilization management physician Dr. Mike Nayak. Discharge diagnoses: Recurrent lower GI bleed secondary to angiodysplastic lesions Acute on chronic anemia History of ischemic stroke History of carotid artery stenosis CAD End-stage renal disease HD dependent Tobacco abuse Essential hypertension History of bicuspid aortic valve status post TAVR Chronic HFrEF RA Subclavian aneurysm-status post clavian graft History of right upper extremity DVT Hepatitis C positive Diverticulitis History of migraine headaches GERD PUD OA Hyperlipidemia Essential hypertension Secondary Parahyperthyroidism Physical Exam Const alert, oriented x3, no apparent distress, no limitations and well nourished; Negative for average body habitus or healthy appearing Constitutional Narrative: Overweight, upper middle-aged, white male, sitting up in bed, appears older than stated age, appears comfortable, nontoxic, currently on dialysis, dialysis nurse at bedside General Appearance: cooperative, comfortable, well kempt and well developed Exam Limitations: no limitations Nutritional Appearance: overweight HEENT normocephalic, head/scalp atraumatic, hearing grossly normal bilaterally and moist oral mucous membranes HEENT Narrative: Mallampati is 2-3, no thrush Eyes Negative for conjunctivae normal Eyes Narrative: Conjunctival pallor is noted, no scleral icterus Neck no lymphadenopathy, supple and no JVD Resp normal respiratory effort, no retractions, no use of accessory muscles and clear to auscultation bilaterally Auscultation: Negative for rales, rhonchi or wheezes Cardio regular rate, regular rhythm, S1 normal heart sound, S2 normal heart sound, no rub and no gallops; Negative for no murmurs Cardio Narrative: 3-6 systolic murmur GI normal to inspection, nondistended, normoactive bowel sounds, soft to palpation and non-tender Extremity no clubbing, cyanosis or edema Extremity Narrative: Pedal and radial pulses are 2+ Skin skin turgor normal, no jaundice, no petechiae and no mottling Skin Narrative: Pale Neuro oriented x3, moves all extremities and no focal motor deficits Speech: speech normal Psych affect normal Psych Narrative: Very pleasant, eye contact is good and patient interacts appropriately Weight / BMI Weight Weight: 85.3 kg Body Mass Index (BMI) 26.9 ABG / Lab / Microbiology Data 03/16/25 11:20 03/16/25 02:16 Laboratory: Laboratory Results - last 24 hr 03/16/25 02:16: WBC 6.5, RBC 2.04 L, Hgb 6.5 L, Hct 20.7 L, MCV 101.5 H, MCH 31.9, MCHC 31.4 L, RDW Std Deviation 61.4 H, RDW Coeff of Brynn 17.1 H, Plt Count 189, MPV 10.6, Immature Gran % (Auto) 0.500, Neut % (Auto) 69.3, Lymph % (Auto) 16.6 L, [place] % (Auto) 10.7 H, Eos % (Auto) 2.6, Baso % (Auto) 0.3, Absolute Neuts (auto) 4.5, Absolute Lymphs (auto) 1.07, Nucleated RBC % 0, Sodium 138, Potassium 4.4, Chloride 96 L, Carbon Dioxide 27.8, Anion Gap 15, BUN 42 H, Creatinine 6.43 H, Estim Creat Clear Calc 12.18 L, Est GFR (MDRD) Non-Af 9 L, BUN/Creatinine Ratio 6.5 L, Glucose 112 H, Calcium 8.5, Magnesium 2.1, Blood Type A POSITIVE, Antibody Screen NEGATIVE, Crossmatch See Detail 03/16/25 11:20: Hgb 8.3 L, Hct 25.5 L D/C Instructions Discharge Diet: Renal Diet Discharge Activity: Return to Normal Activity DC O2, CPAP, BIPAP Needs Home O2 Discharge instructions: No Meaningful Use Info Meaningful Use Meaningful Use Diagnoses (Choose all that apply): None applicable Ischemic Stroke Statin Dosing Therapy Reference: STATIN DOSE THERAPY REFERENCE: * Patients > 75 years receive moderate or high dose statin therapy. * Patients 75 years or YOUNGER should receive HIGH intensity statin dose unless contraindicated. You will be required to document reason for non-treatment if statin daily dose does not meet guidelines. HIGH DOSE STATIN THERAPY DAILY Atorvastatin > than or = to 40 mg Rosuvastatin > than or = to 20 mg Amlodipine + Atorvastatin > than or = to 2.5/40 mg Ezetimibe + Simvastatin 10/80 mg Simvastatin 80mg Discharge Plan Admission Admit Date/Time: 03/16/25 03:56 Primary Reason for Your Visit: Recurrent GI bleed due to angiodysplastic lesions Attending Provider: Ofelia Walls Primary Care Provider: Pavithra Henning Consulting Providers: Landon Martinez; Hanh Russo Instructions Additional Instructions / Restrictions: 1. The plan is to start you on octreotide subcutaneously 3 times daily at 100 mcg please continue this until directed otherwise by Dr. Ross the hope is that the utilization of this medication will decrease the formation of these lesions that are bleeding and decrease your GI bleed occurrence 2. No other medication changes were made at this time Discharge Orders/Prescriptions Prescriptions: New octreotide acetate 100 mcg/mL Solution 100 mcg subcut TID Qty: 10 1RF Continued carvedilol 12.5 mg tablet 12.5 mg PO BID Rx Instructions: Does not take on Tuesdays, , and Saturdays due to dialysis coenzyme Q10 [Co Q-10] 200 mg capsule 200 mg PO DAILY epoetin beta, methoxy peg [Mircera] See Rx Instructions subcut .COMPLEX PRN (Reason: low blood counts) Patient Comments: [facility] Rx Instructions: only in dialysis subcutaneously PRN; administered by dialysis infusion sensitar 90 mg PO 3XW Patient Comments: GETS AT [facility]ENTER Rx Instructions: Dialysis days. Thu, thu, sat heparin (porcine) 5,000 unit/mL solution 5,000 unit subcut ONCE Rx Instructions: Given as an infusion during dialysis ferrous sulfate 325 mg (65 mg iron) tablet 325 mg PO .COMPLEX Patient Comments: TAKES AT DINNER TIME Rx Instructions: 325 mg orally Thursday, , and Thu; vitamin D 1.25 1.25 mcg PO 3XD Rx Instructions: 1 total per day taken after dialysis on , , and Thursday acetaminophen 500 mg tablet 1,000 mg PO BID Nephro-Christiano 0.8 mg tablet 1 tab PO DAILY Patient Comments: TAKES IN AM ON THURSDAY, THURSDAY, THURSDAY, AND THURSDAY. TAKES AT DINNER TIME ON THURSDAY, THURSDAY, AND THURSDAY. cyanocobalamin (vitamin B-12) [Vitamin B-12] 1,000 mcg tablet 1,000 mcg PO DAILY sevelamer carbonate 800 mg tablet 800 mg PO TIDCM ascorbic acid (vitamin C) 500 mg tablet 500 mg PO BID Qty: 60 2RF aspirin 81 mg Tablet,Chewable 81 mg PO DAILY Patient Comments: TAKES AT DINNER TIME pantoprazole [Protonix] 40 mg tablet,delayed release (DR/EC) 40 mg PO BID 30 Days Qty: 60 1RF losartan 25 mg tablet 25 mg PO BID Rx Instructions: does not take am dose on dialysis days sat atorvastatin 40 mg tablet 40 mg PO QHS Qty: 90 3RF Referrals / Follow Up: Pavithra Henning MD [Primary Care Provider] - 03/20/25 11:00 am Cade Ross DO [Med Staff - Active Staff] - 03/23/25 2:00 pm (Appointment is with PAPER GLUING OPERATOR Yocasta Winkler. ) Disposition Disposition (needs filled in before D/C Order can be placed): Home, Self Care Charges/Coding Visit Charges Inpatient E&M: 65223 Disch Hosp >30min
[2025-03-16] MEDS: Acetaminophen 500 MG Tablet 1000 MG PO (12:37)
[2025-03-16] MEDS: Pantoprazole Sodium 40 MG in 0.9% Normal Saline (100mL MB+) 100 ML 330 MG IV (12:40)
--- NOTE | 2025-03-16 13:09 | CASEMGMT ---
Inpatient order reviewed against Medicare medical necessity requirements. Current documentation does not support an inpatient status. Case submitted to physician advisor for review who states patient is approviate for observation level of care. Dr. Walls notified of patient being appropriate for outpatient status and is agreeable. Pt notified of status change from inpatient to outpatient. GOFF form provided and signed by pt. Pt provided a copy and original placed in pt?s chart.
--- NOTE | 2025-03-16 13:16 | PCM.CONS.R ---
Assessment & Plan Assessment/Plan (1) ESRD on hemodialysis: PLAN: On hemodialysis. Dialysis today, see orders. GI bleed. Multiple discussions with gastroenterology over the last 2 to 3 weeks. He is starting octreotide this week. Has an appointment with GI next week. HPI Consult Data Date of Consult: 03/16/25 HPI Narrative Reason for Consultation: ESRD HPI Narrative: BINDU DUMONT, is a 69 M who presents With GI bleed. Nephrology on consultation in view of ESRD. Currently on hemodialysis. Multiple episodes of GI bleed recently. Presumably this is AV malformation related. Has had extensive workup including multiple endoscopy, colonoscopy, capsule endoscopy. He had a tagged RBC scan at [facility] recently which showed bleeding from upper GI site. Follow-up upper GI endoscopy did not show any bleeding sites. I spoke to gastroenterology at [facility] after last admission, they recommended to consider 2 drugs, lenalidomide versus octreotide. I spoke to Dr. Ross after that and plan was to start octreotide. He had an appointment with gastroenterology next week. Presented with another episode of GI bleed which is resolved now. Dialysis today. [facility] Medical History Chronic anemia CVA (cerebral vascular accident) ESRD (end stage renal disease) Symptomatic anemia Carotid stenosis, right ESRD (end stage renal disease) on dialysis Acute anemia Black stool History of transcatheter aortic valve replacement (TAVR) Wears glasses History of steroid therapy History of renal disease Low iron Rheumatoid arthritis Back pain Migraine headache Dietary restriction History of diverticulitis History of ulceration Shortness of breath on exertion Lymphedema History of echocardiogram Cardiology follow-up encounter Hypertension Chronic renal failure Anemia DVT (deep venous thrombosis) End stage renal disease on dialysis Secondary hyperparathyroidism Generalized weakness Acute on chronic anemia Acute upper GI bleed History of end stage renal disease History of renal dialysis Dialysis patient Hepatitis Smoker Bursitis Problem with dialysis access Rectal bleeding Subclavian aneurysm Kidney failure due to vascular disorder Cardiac disease Rheumatoid vasculitis Rheumatoid aortitis Home Medications ?Medication ?Instructions ?Recorded ?Last Taken ?Type vitamin B complex-vitamin C-folic 1 tab PO DAILY RENAL HEALTH 12/12/23 02/07/25 History acid 0.8 mg tablet (Nephro-Christiano) cyanocobalamin (vitamin B-12) 1,000 mcg PO DAILY supplement 01/12/24 03/15/25 History 1,000 mcg tablet (Vitamin B-12) acetaminophen 500 mg tablet 1,000 mg PO BID PAIN 12/02/24 03/15/25 History carvedilol 12.5 mg tablet 12.5 mg PO BID High bp 12/02/24 03/15/25 History coenzyme Q10 200 mg capsule (Co 200 mg PO DAILY supplement 12/02/24 03/15/25 History Q-10) epoetin beta, methoxy peg See Rx Instructions subcut 12/02/24 02/04/25 History .COMPLEX PRN low blood counts sevelamer carbonate 800 mg tablet 800 mg PO TIDCM phosphate binder 12/27/24 03/15/25 History ascorbic acid (vitamin C) 500 mg 500 mg PO BID supplement #60 tabs 12/29/24 03/14/25 Rx tablet sensitar 90 mg PO 3XW ckd 01/06/25 03/14/25 History atorvastatin 40 mg tablet 40 mg PO QHS cholesterol #90 tabs 01/16/25 03/15/25 Rx aspirin 81 mg chewable tablet 81 mg PO DAILY heart health 01/19/25 03/15/25 History ferrous sulfate 325 mg (65 mg 325 mg PO .COMPLEX anemia 02/03/25 02/06/25 History iron) tablet losartan 25 mg tablet 25 mg PO BID heart 02/03/25 03/15/25 History pantoprazole 40 mg tablet,delayed 40 mg PO BID stomach 30 days #60 02/10/25 03/15/25 Rx release (Protonix) tabs vitamin D 1.25 1.25 mcg PO 3XD supp 02/22/25 03/14/25 History heparin (porcine) 5,000 unit/mL 5,000 unit subcut ONCE 02/27/25 Unknown History injection solution octreotide acetate 100 mcg/mL 100 mcg subcut TID #10 mL 03/16/25 Unknown Rx injection solution Allergy/AdvReac Type Severity Reaction Status Date / Time No Known Allergies Allergy Verified 03/16/25 01:48 Family History Father Heart disease Atrial fibrillation Mother , 88 Heart disease Myocardial infarction Brother Heart disease Myocardial infarction Surgical History History of cardiac catheterization Hx of colonoscopy with polypectomy History of esophagogastroduodenoscopy (EGD) Hx of arteriovenostomy for renal dialysis (~12/2019) Status post insertion of dialysis catheter (~11/2019) History of umbilical hernia s/p subclavian graft S/P knee surgery History of bicuspid aortic valve Social History household members: spouse housing: house Smoking Status: Light Smoker (<10/day) alcohol intake: never substance use type: does not use caffeine: Yes Type: coffee Number of servings: 2 ROS ROS Narrative negative except above Physical Exam Narrative Alert awake oriented x 3 no obvious distress no pallor no icterus no JVD s1s2 no murmurs lungs clear abdomen soft no organomegaly no edema no cyanosis Lab / Micro Data 03/16/25 11:20 03/16/25 02:16 Labs: Laboratory Results - last 24 hr 03/16/25 02:16: WBC 6.5, RBC 2.04 L, Hgb 6.5 L, Hct 20.7 L, MCV 101.5 H, MCH 31.9, MCHC 31.4 L, RDW Std Deviation 61.4 H, RDW Coeff of Brynn 17.1 H, Plt Count 189, MPV 10.6, Immature Gran % (Auto) 0.500, Neut % (Auto) 69.3, Lymph % (Auto) 16.6 L, [place] % (Auto) 10.7 H, Eos % (Auto) 2.6, Baso % (Auto) 0.3, Absolute Neuts (auto) 4.5, Absolute Lymphs (auto) 1.07, Nucleated RBC % 0, Sodium 138, Potassium 4.4, Chloride 96 L, Carbon Dioxide 27.8, Anion Gap 15, BUN 42 H, Creatinine 6.43 H, Estim Creat Clear Calc 12.18 L, Est GFR (MDRD) Non-Af 9 L, BUN/Creatinine Ratio 6.5 L, Glucose 112 H, Calcium 8.5, Magnesium 2.1, Blood Type A POSITIVE, Antibody Screen NEGATIVE, Crossmatch See Detail 03/16/25 11:20: Hgb 8.3 L, Hct 25.5 L
[2025-03-16] MEDS: Octreotide 0.1 MG/ML ML SC (13:56)
--- NOTE | 2025-03-16 14:26 | NURSING ---
pt & requested confirmation from MD that it was ok to begin octreotide before discharge since he will miss several doses. Dr. Walls confirmed, ok to administer. Pt educated on self-administering subcutaneous injection and self administered under the direction of this nurse.
--- NOTE | 2025-03-16 14:37 | CASEMGMT ---
Physically therapy notified SW that patient told her ever since his stroke he has been having nightmares about having another Stroke. SW met with patient and his . Introduced self and role at [facility]. SW mentioned patient's comment that he made to therapy Patient said he has been having a hard time. Patient said he would be talking to his and just start crying for no reason. SW listened to patient and provided emotional support. SW assured patient that those feelings are common after a stroke. SW mentioned [facility] stroke support, but patient said he does not do well with groups. SW asked patient and his if they have access to the internet and they do. SW provided patient with information from [employer] website as well as a list of local mental health providers. Patient and his were very appreciative. Minnie DURON
== END 2025-03-16 14:50 | disposition home or self-care (01) ==
LOC: ED 02:33 → PCU 06:53
PROVIDERS: Admitting Provider Internal Medicine; Emergency Provider Emergency Medicine; PCP Internal Medicine; Visit Provider Internal Medicine
DX: K31.811 Angiodysplasia of stomach and duodenum with bleeding (principal); I13.2 Hypertensive heart and chronic kidney disease with heart failure and with stage 5 chronic kidney disease, or end stage renal disease; N18.6 End stage renal disease; I50.22 Chronic systolic (congestive) heart failure; D62 Acute posthemorrhagic anemia; K62.5 Hemorrhage of anus and rectum; D63.1 Anemia in chronic kidney disease; F17.200 Nicotine dependence, unspecified, uncomplicated; I25.10 Atherosclerotic heart disease of native coronary artery without angina pectoris; Z99.2 Dependence on renal dialysis; K21.9 Gastro-esophageal reflux disease without esophagitis; B19.20 Unspecified viral hepatitis C without hepatic coma; K57.90 Diverticulosis of intestine, part unspecified, without perforation or abscess without bleeding; Z68.28 Body mass index [BMI] 28.0-28.9, adult; E66.3 Overweight; G89.29 Other chronic pain; Z79.82 Long term (current) use of aspirin; Z86.718 Personal history of other venous thrombosis and embolism; Z86.73 Personal history of transient ischemic attack (TIA), and cerebral infarction without residual deficits
CPT/HCPCS: 36430; 80048; 83735; 85014; 85018; 85025; 86850; 86900; 86901; 90937; 96361; 96365; 99221; 99284; P9016; A4216; G0257; G0378; J2354

== ENCOUNTER 2025-03-29 10:00 | Outpatient (RCR) | payer MEDICARE, BC, SELFPAY ==
[2024-12-30 10:19] VITALS: BMI 29.4
--- NOTE | 2025-01-18 14:39 | HP.SP.EVAL ---
Visit History Visit Info Date of Eval: 01/18/25 Visit: 1 Plugger: HUI History Attending Doctor: Referring Doctor: Reason for Referral: INPATIENT TO OUTPATIENT PT HAS RX Medical Diagnosis: I63.9 Stroke Date of Onset of Diagnosis: 01-08-25 Previous speech therapy: Yes Results: Evaluated by EXERCISE EQUIPMENT REPAIR TECHNICIAN on acute and received 1 treatment for dysarthria and dysphagia. Other Relevant Medical History/Diagnoses/Surgery: Essential hypertension, chronic systolic CHF, hyperlipidemia, history of GI bleed with AVMs and gastric ulcers, iron deficiency anemia, end-stage renal disease, rheumatoid arthritis, carotid stenosis Medications related to this diagnosis: n/a Smoking Status: Current some day smoker Diagnosis Diagnosis: Dysarthria following CVA, Oral dysphagia following CVA Pain Is pain an issue with your current prescribed condition?: No Personal Preferred language: Latvian Patient Allergies Allergies Allergies: Allergies No Known Allergies Allergy (Verified 01/08/25 03:40) Subjective Dysphagia Symptoms Reported Symptoms/Problems with: Drooling Current Diet Solids Current Diet: Regular Current Diet Liquids Current Liquids: Thin Abraham free water Protocol: No Objective Dysphagia Administered by Administered by: Self Thin Liquids Administred via: Cup and Straw Oral Transit: Delay > 1 seconds Bolus clearance: significant clearance/minimal residue Gagging: No Cough: none observed/unable to assess Pharyngeal phase: immediate laryngeal elevation Patient Report: Patient reports dysphagia with foods and liquids has resolved, and he consuming baseline diet at home without difficulty. Endorses drooling and right buccal residue. Demonstrates use of lingual sweep, liquid wash, and multiple swallows to clear right buccal and medial lingual residue resulting from unilateral right oral flaccidity. Oral sensation intact, with patient aware of drooling (constantly wiping with tissue) and able to ID and clear oral residue. No overt indications of pharyngeal dysphagia or aspiration at this time. Pureed Administered via: Spoon Oral Preparation: lip or tongue seal bolus escape Oral Transit: WNL Bolus clearance: significant clearance/minimal residue Gagging: No Cough: none observed/unable to assess Pharyngeal phase: immediate laryngeal elevation Regular Oral Preparation: lip or tongue seal bolus escape Oral Transit: Delay > 1 seconds Bolus clearance: significant clearance/minimal residue Gagging: No Cough: none observed/unable to assess Pharyngeal phase: immediate laryngeal elevation Swallowing Impairment Contributing Factors to Swallowing Impairment: Reduced Oral Strength/Coordination/Sensation and Mastication Inefficiency Impact Impact on Safety & Functioning: No Limitations Recommendations Modified Barium Swallow/Cookie Swallow Recommended: No Swallowing Treatment: Yes Diet Texture Recommendations Solids: Regular (Level 7) Liquids: Thin (Level 0) Other liquids: Thin Abraham free water Protocol: No Safety Saftey Precautions/Swallowing Recommendations (Check all that Apply): Small Sips & Bites when Eating and Alternate Liquids & Solids Other: Upright positioning for all intake. Small bites and sips. Alternate bite/sip. Liquid wash and lingual sweep with solids to clear buccal and lingual residue. Exaggerate labial seal and use of Effortful swallow for salivary containment. Results Swallowing Within Normal Limits: No Swallowing Diagnosis: Oral Phase Dysphagia (R13.11) Severity: Mild Subjective Oral Motor Subjective Patient Reports: Drooling, Slurred Speech and Difficulty being Understood Facial Drooping: Right Dentures ill fitting: No Comments Comments: Patient endorses embarrassment with slurred speech and poor labial seal impacting saliva management resulting in anterior loss of saliva or drooling. Objective Oral Motor Oral Status Dentition: Missing Teeth and Decay Labial Impairment: Moderate Observation at Rest: Right Droop Closure: Drooling Pucker: Moderate Retraction: Moderate Alternating Pucker/Retraction: Moderate Involuntary Movement noted: No Labial Comments Comments: -9mm right labiofacial flaccidity via measurement with labiogoniometer Lingual Impairment: Mild Observation: Deviated Right Protrusion: Mild Retraction: Mild Lateralization: Mild Involuntary Movement: No Lingual Comments Comments: Xerostomia Jaw Impairment: WNL Opening: WNL Closing: WNL Involuntary Movement: No Respiratory Status Respiratory Status: Room Air ANNUAL GIVING DIRECTOR VII Facial Nerve VII Facial Nerve Assessment (colten assessemnts performed): - VII Facial Nerve Result: Impaired Comment: Right labial facial flaccidity -9 mm Objective Dysarthira/Motor Speech Intelligibility Phonemes: Mild Single Words: Mild Phrases: Moderate Sentences: Moderate Paragraphs: Moderate Conversation: Moderate Volume Volume: WNL Loudness: Variable loudness Sounds Sounds in Error: bilabials, fricatives, affricates, Speech precision diminishes as words and sentences increase in complexity Consistency w/Multiple Repetitions Words: Moderate Phrases: Moderate Observation Observation of Apraxia of Speech: No Oral Groping for Placement: No Inconsistent Errors: No Awareness/Strategy Use Aware of motor speech impairment, unable to use strategies to improve intelligibility: Yes Uses strategies intermittently to improve intelligibility or listener's understanding of message: Yes Reference: Neuro-QoL instrument Radiation Oncology Patient Plan Plan Plan: Skilled speech therapy services warranted to remediate and compensate for functional impairments in motor speech and oral phase of swallowing to facilitate effective communication skills for participation in health management and socialization as well as saliva management to promote self-confidence for highest quality of life s/p CVA. Focus of care to include training in compensatory strategies for speech and swallowing, orofacial ther ex, NMES, verbal agility training, and patient education. Recommendations Treatment Warranted: Yes Treatment Warranted: Speech Sound Production and Dysphagia Progress Prognosis: Excellent Frequency Frequency: 1x/Week Duration: 2 Months Visits in this POC: 8 Patient/Family Goal Patient/Family Goal: To speak normally. Goals that are Established Determination:: Goals will be added/modified as deemed necessary and appropriate. Therapy will be discontinued when results of re-evaluation indicate therapy is no longer needed or lack of progress has been documented. Goal #1-5 Goal #1: Patient will demonstrate independence with orofacial ther ex program to remediate dysarthria and dysphagia. Goal #2: Patient will improve speech precision at the structured sentence level to 80% with minimal cues for compensatory strategies for dysarthria management. Goal #3: Patient will demonstrate use of compensatory strategies for oral dysphagia with minimal cues as evidenced by no anterior loss of saliva in 5/10 trials. Goal #4: Patient will improve facial symmetry and motor responses as evidenced by <-6mm flaccidity via labiogoniometer measurement. Education Patient has Indicated that the Following Identified Educational Needs: None The Patient has indicated that they have no educational or learning abilities that may effect their care.: Yes Patient Instruction Patient Education: Diagnosis, Treatment Plan, Goals and Home Exercise Program Person Taught: Patient and Family Teaching Method: Discussion, Demonstration, Handout and Teach Back Response to teaching: Verbalize Understanding and Reinforcement Needed
--- NOTE | 2025-03-29 10:37 | HP.SP.DC ---
ST Discharge Summary Discharged: Discharge: Patient participated in skilled speech therapy services targeting right facial flaccidity impacting oral phase of swallow as well as speech precision at the conversational level. Patient POC targeted orofacial ther ex, KinesioTaping and NMES to right lateral face, and training in compensatory strategies. Patient has achieved goals and is able to demonstrate teach back of prescribed HEP for ongoing rehabilitation and maintenance. Discharge to care of self and physicians this date.
== END 2025-03-29 10:58 | disposition home or self-care (01) ==
LOC: SP 10:00
PROVIDERS: PCP Internal Medicine; Referring Provider Family Medicine; Visit Provider Family Medicine
DX: I69.322 Dysarthria following cerebral infarction; I69.391 Dysphagia following cerebral infarction
CPT/HCPCS: 92507; 92526; 92610

== ENCOUNTER 2025-04-09 10:11 | Inpatient (IN) | payer MEDICARE, BC, SELFPAY ==
[2025-02-10 11:35] VITALS: BMI 29.4
[2025-04-09] VITALS (12 sets, daily range): BP systolic 82–108; BP diastolic 67–83; PULSE 73–117; RESP 12–20; TEMP 36.5–37.2; O2SAT 92–97; BMI 26.9
--- NOTE | 2025-04-09 10:57 | EKG12_ITS ---
Test Reason : Blood Pressure : */* mmHG Vent. Rate : 116 BPM Atrial Rate : * BPM P-R Int : * ms QRS Dur : 166 ms QT Int : 414 ms P-R-T Axes : * -64 120 degrees QTcB Int : 575 ms Atrial fibrillation with rapid ventricular response with premature ventricular or aberrantly conducted complexes Left axis deviation Left bundle branch block Abnormal ECG Confirmed by Aric Palomo ([id number]), movie editor DARRIUS ALONSO ([id number]) on 04/10/2025 10:59:53 AM Referred By: Danny Wilkes Confirmed By: Aric Palomo
--- NOTE | 2025-04-09 11:09 | ED.VIS.GI ---
HPI HPI - GI History of Present Illness Chief Complaint: GI Bleed Informant: patient and spouse/S.O. Diarrhea/Melena/Hematochezia GI Symptom: Positive for Melena Onset: Days Stool Quality: Positive for Loose Severity: Moderate Associated Symptoms Associated Symptoms: Negative for Dysuria, Frequency, Hematuria or Urgency Narrative Narrative: 69-year-old male history of end-stage renal his dialysis was last dialyzed for 1 yesterday. Prior stroke and anemia. History of GI bleed sees Dr. Ross. Is on aspirin only no other blood thinners. He also has a bioprosthetic aortic valve that was replaced. States has had a GI bleed for last 3 days with black stool. No hematemesis. Noted around Thursday. 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 Has been cauterized in the past. Sometimes it resolves on its own. His last admission for this was March 15 about 3 to 4 weeks ago. Prior similar symptoms: Yes Recent Illness/Hospitalization: Yes PFSH [facility] Medical History Diverticulosis ESRD on hemodialysis Ischemic stroke Chronic anemia CVA (cerebral vascular accident) ESRD (end stage renal disease) Symptomatic anemia Carotid stenosis, right ESRD (end stage renal disease) on dialysis Acute anemia Black stool History of transcatheter aortic valve replacement (TAVR) Wears glasses History of steroid therapy History of renal disease Low iron Rheumatoid arthritis Back pain Migraine headache Dietary restriction History of diverticulitis History of ulceration Shortness of breath on exertion Lymphedema History of echocardiogram Cardiology follow-up encounter Hypertension Chronic renal failure Anemia DVT (deep venous thrombosis) End stage renal disease on dialysis Secondary hyperparathyroidism Generalized weakness Acute on chronic anemia Acute upper GI bleed History of end stage renal disease History of renal dialysis Dialysis patient Hepatitis Smoker Bursitis Problem with dialysis access Rectal bleeding Subclavian aneurysm Kidney failure due to vascular disorder Cardiac disease Rheumatoid vasculitis Rheumatoid aortitis Home Medications ?Medication ?Instructions ?Recorded ?Last Taken ?Type cyanocobalamin (vitamin B-12) 1,000 mcg PO DAILY supplement 01/12/24 04/09/25 History 1,000 mcg tablet (Vitamin B-12) acetaminophen 500 mg tablet 1,000 mg PO BID PAIN 12/02/24 04/09/25 History carvedilol 12.5 mg tablet 25 mg PO SUMOWEFR High bp 12/02/24 04/09/25 History coenzyme Q10 200 mg capsule (Co 200 mg PO DAILY supplement 12/02/24 04/09/25 History Q-10) epoetin beta, methoxy peg See Rx Instructions subcut 12/02/24 04/08/25 History .COMPLEX PRN low blood counts sevelamer carbonate 800 mg tablet 800 mg PO TIDCM phosphate binder 12/27/24 04/08/25 History ascorbic acid (vitamin C) 500 mg 500 mg PO BID supplement #60 tabs 12/29/24 04/08/25 Rx tablet aspirin 81 mg chewable tablet 81 mg PO DINNER heart health 01/19/25 04/08/25 History losartan 25 mg tablet 25 mg PO BID heart 02/03/25 04/09/25 History pantoprazole 40 mg tablet,delayed 40 mg PO BID stomach 30 days #60 02/10/25 04/09/25 Rx release (Protonix) tabs heparin (porcine) 5,000 unit/mL 5,000 unit subcut ONCE 02/27/25 04/08/25 History injection solution atorvastatin 40 mg tablet 40 mg PO QHS cholesterol #90 tabs 03/20/25 04/08/25 Rx iron IV .ONCE 03/20/25 04/08/25 History psyllium husk 0.4 gram capsule 0.4 g PO DAILY 03/23/25 04/08/25 History (Metamucil) octreotide,microspheres 30 mg 30 mg IM Q4W #1 ea 03/27/25 03/28/25 Rx intramuscular susp, extended release (Sandostatin LAR Depot) cholecalciferol (vitamin D3) 125 125 mcg PO TUTHSA 04/09/25 04/08/25 History mcg (5,000 unit) capsule cinacalcet 90 mg tablet (Sensipar) 90 mg PO TUTHSA 04/09/25 04/08/25 History vitamin B complex-vitamin C-folic 1 tab PO SUMOWEFR 04/09/25 04/08/25 History acid 0.8 mg tablet (Dialyvite 800) Allergy/AdvReac Type Severity Reaction Status Date / Time No Known Allergies Allergy Verified 04/09/25 10:12 Family History Father Heart disease Atrial fibrillation Mother , 88 Heart disease Myocardial infarction Brother Heart disease Myocardial infarction Surgical History History of cardiac catheterization Hx of colonoscopy with polypectomy History of esophagogastroduodenoscopy (EGD) Hx of arteriovenostomy for renal dialysis (~12/2019) Status post insertion of dialysis catheter (~11/2019) History of umbilical hernia s/p subclavian graft S/P knee surgery History of bicuspid aortic valve Social History adopted: No household members: spouse housing: house number of children: 2 current occupational status: retired pets and animals: No sexually active: No Smoking Status: Light Smoker (<10/day) Tobacco: How many years used: 40 quit status: has quit before alcohol intake: never substance use type: does not use caffeine: Yes (2) Type: coffee what type of physical activity do you participate in: aerobics and other details: leg excercises frequency: 3-4 times per week do you feel safe at home: Yes ROS ROS ED ROS Narrative Black stool. Constitutional Constitutional ED: Denies chills or fever(s) ENT ENT ED: Denies ear pain Cardiovascular Cardiovascular: Denies chest pain Respiratory/Chest Respiratory/Chest: Denies cough or dyspnea Gastrointestinal Gastrointestinal: Reports melena; Denies abdominal pain, constipation, diarrhea, nausea or vomiting Genitourinary Genitourinary ED: Denies dysuria or hematuria Musculoskeletal Musculoskeletal: Denies arthralgias Integumentary Denies abscess Neurologic Neurologic: Denies headache(s) Psychiatric Psychiatric: Denies anxiety Endocrine Endocrinology: Denies polydipsia Hematologic/Lymphatic Hematologic/Lymphatic: Denies easy bleeding or lymphadenopathy Allergic/Immunologic Allergic/Immunologic ED: Denies mouth swelling, tongue swelling or urticaria EXAM Physical Exam Narrative Exam Narrative: 69-year-old male initial blood pressure 82/67 currently he is on 100/80. He is in A-fib he reportedly does not have a history of A-fib. H EENT exam pupils round reactive light. Moist with membranes. He is pale. Neck nontender no lymphadenopathy. Lungs clear to auscultation bilaterally. Heart A-fib rate in the 70s. He does have a 4/6 systolic ejection murmur. Abdomen is soft, nontender nondistended normal bowel sounds without peritoneal signs. Moving all 4 extremities. He has a left arm fistula with a good thrill. Normal filter press pumper strength. Normal dorsi plantarflexion. 1-2+ pitting edema both lower extremities which is chronic. Back nontender. Neurologically he is awake and alert. Answering questions following commands. present in the room. Const Vital Signs: 04/09/25 10:12 04/09/25 11:12 04/09/25 12:00 Temperature 97.7 F L Temperature Source Oral Pulse Rate 73 117 H 112 H Respiratory Rate 18 17 20 H Blood Pressure 82/67 L 101/83 H 108/82 H Blood Pressure Mean 72 89 90 Pulse Ox 92 96 96 Oxygen Delivery Method Room Air Room Air Room Air 04/09/25 12:00 Temperature 98 F Temperature Source Pulse Rate 112 H Respiratory Rate 12 Blood Pressure 108/82 H Blood Pressure Mean 90 Pulse Ox 97 Oxygen Delivery Method Positive well nourished and well developed; Negative for cachectic, contractures or unkempt General Appearance ED: well developed and pallor; Negative for unkempt, cachectic, contractures or NAD Nutritional Appearance: Negative for cachectic HEENT Reports moist mucous membranes normocephalic and atraumatic Eyes PERRL and EOMs intact bilaterally General Eye ED: Yes pale conjunctiva; Negative for scleral icterus Neck no lymphadenopathy, supple and no JVD Resp normal respiratory effort and clear to auscultation bilaterally Cardio no murmurs; Negative for regular rate or regular rhythm Cardio Narrative: A-fib rate in the 70s. For over 6 systolic ejection murmur. Rhythm: abnormal rhythm GI non-tender, non-distended and no masses Palpation: soft; Negative for tender, guarding, mass, pulsatile mass or rebound tenderness present Back/Spine no CVA tenderness Extremity full ROM General Extremety ED: Yes edema; Negative for tenderness General Extremity: edema Neuro CN's II-XII intact bilaterally and moves all extremities Sensorium / Orientation: alert, oriented to person, oriented to place and oriented to time Motor Exam: strength 5/5 throughout Psych mental status grossly normal and thought process normal Appearance: Negative for unkempt Skin no wounds General Skin Exam: pallor; Negative for jaundice Lesions: no lesions Rashes: no rashes MDM MDM MDM Narrative Medical decision making narrative: 69-year-old male suspect upper GI bleed with melena. Typed and crossed. Given Protonix. Labs and will be admitted. Repeat exam around 12:08 PM. Patient responded well to the Cardizem currently his heart rate is in the 70s. He remains in A-fib. We discussed his test results. I have already spoken to the hospitalist. Patient will be admitted to the PCU. He will be given 1 unit of blood. He also be given IV potassium 20 mill equivalents. History & Record Review Discussion w/independent historian: Patient and Family Additional record(s) reviewed:: Prior inpatient record, Prior outpatient record, Prior ED visit and Prior labs Lab Data Attestation: I reviewed the patient's lab results. Lab results narrative: CBC shows a white count of 5.8. H&H 7.2 and 22.9. Platelets 171 Chemistry shows sodium 138. Potassium 2.8. Gap 16. BUN 26 creatinine 4.71 known dialysis patient. Glucose 100. Liver enzymes unremarkable. Labs: Laboratory Results - last 24 hr 04/09/25 10:24 WBC 5.8 RBC 2.29 L Hgb 7.2 L Hct 22.9 L MCV 100.0 H MCH 31.4 MCHC 31.4 L RDW Std Deviation 59.3 H RDW Coeff of Brynn 16.3 H Plt Count 171 MPV 12.0 Immature Gran % (Auto) 0.300 Neut % (Auto) 73.1 H Lymph % (Auto) 10.9 L Gray % (Auto) 13.1 H Eos % (Auto) 2.1 Baso % (Auto) 0.5 Absolute Neuts (auto) 4.2 Absolute Lymphs (auto) 0.63 L Nucleated RBC % 0 PT 15.0 H INR 1.2 APTT 31.8 Sodium 138 Potassium 2.8 L Chloride 94 L Carbon Dioxide 28.4 Anion Gap 16 H BUN 26 H Creatinine 4.71 H Estim Creat Clear Calc 15.28 L Est GFR (MDRD) Non-Af 13 L BUN/Creatinine Ratio 5.5 L Glucose 100 H Calcium 8.3 Total Bilirubin 0.45 AST 23 ALT 8 Alkaline Phosphatase 48 Total Protein 6.4 Albumin 3.9 Globulin 2.5 Albumin/Globulin Ratio 1.5 Blood Type A POSITIVE Antibody Screen NEGATIVE Crossmatch See Detail Radiography Diagnostic Testing: Clinical Impression(s) from Imaging Studies Chest X-Ray 04/09/25 11:20 IMPRESSION: No significant change since last exam. Reading Location: [facility] Rhythm Strip Rhythm Strip: A-fib Rate: 116 Ectopy: None EKG Initial EKG: Attestation: I personally reviewed and interpreted this EKG as follows: Interpretation: Atrial Fibrillation Comments: A-fib RVR rate 116. Left bundle branch block. Apparent CAD A-fib. Critical Care Time Critical Care Time: Yes Critical care time (excluding procedures): Including time spent:, Discussing w/Patient &/or Family/Retail Support Associate, Discussing w/Consultants, Arranging Admission or Transfer, Performing Direct Patient Care at Bedside and - (35 minutes) Discharge Plan Dx/Rx/DC Orders Clinical Impression: Acute upper gastrointestinal bleeding, Acute on chronic anemia, Atrial fibrillation, new onset, End stage chronic kidney disease, Dialysis patient, History of stroke, Acute hypokalemia Disposition Disposition: Acute Care Hospital [facility]
[2025-04-09 11:12] LABS: Absolute Lymphocyte Count 0.63 X10^3/uL (0.83-4.51); Absolute Neutrophil Count 4.2 X10^3/uL (2.0-7.7); Basophil# 0.03 X10^3/uL; Basophil% 0.5 % (0-1); Eosinophil# 0.12 X10^3/uL; Eosinophils% 2.1 % (0-5); Hematocrit 22.9 % (40-54); Hemoglobin 7.2 g/dL (13.0-16.5); Lymphocyte # 0.63 X10^3/ul (0.83-4.51); Lymphocyte % 10.9 % (19-41); Mean Corp Hgb Conc 31.4 g/dL (32-36); Mean Corpuscular Hgb 31.4 pg (27.0-32.0); Monocyte# 0.76 X10^3/uL; Monocyte% 13.1 % (0-10); NRBC Flagged by Analyzer 0 % (0-5); Neutrophil # 4.24 X10^3/uL (2.7-7.7); Neutrophil % 73.1 % (47-70); Platelet Count 171 K/mm3 (150-450); RBC Distribution Width CV 16.3 % (11.6-14.6); RBC Distribution Width SD 59.3 fl (35.1-43.9); Red Blood Count 2.29 M/mm3 (4.6-6.2); White Blood Count 5.8 K/mm3 (4.4-11.0)
[2025-04-09] MEDS: Pantoprazole Sodium 80 MG in 0.9% Normal Saline (50mL Bag) 15 ML 420 MG IV BOLUS (11:19)
--- NOTE | 2025-04-09 11:20 | RAD_ITS ---
PROCEDURE: CHEST 1 VIEW (PORTABLE) 04/09/2025 REASON FOR EXAM: NEW ONSET A-FIB TECHNIQUE: Frontal view of the chest. COMPARISON: Chest radiograph 01/08/2025. FINDINGS: Hardware: Aortic valve replacement/repair. Heart: Stable cardiomegaly, likely due to ectasia of the thoracic aorta. Lungs: No focal consolidation, pleural effusion or pneumothorax. Bones: Degenerative changes are identified within the thoracic spine. RAD/Chest 1 View (Portable) IMPRESSION: No significant change since last exam. Reading Location: [id number]
[2025-04-09 11:51] LABS: ALB/GLOB Ratio 1.5 RATIO (0.9-2.4); AST(SGOT) 23 U/L (<=37); Alanine Aminotransfer ALT/SGPT 8 U/L (<=46); Albumin, Serum 3.9 g/dL (3.4-4.8); Alkaline Phosphatase 48 U/L (40-129); Anion Gap 16 (5-15); BUN 26 mg/dL (4-19); BUN/Creat Ratio 5.5 RATIO (10-20); Calcium,Total 8.3 mg/dL (7.6-11.0); Carbon Dioxide 28.4 mmol/L (21.0-32.0); Chloride 94 mmol/L (98-108); Creatinine, Serum 4.71 mg/dL (0.70-1.20); EST Glomerular Filtration Rate 13 (>60); Estimated Creatinine Clearance 15.28 ml/min (50-250); Globulin 2.5 g/dL (2.2-4.2); Glucose 100 mg/dL (70-99); Potassium 2.8 mmol/L (3.3-5.1); Protein, Total 6.4 g/dL (5.9-8.4); Sodium Level 138 mmol/L (133-145); Total Bilirubin 0.45 mg/dL (0.00-1.30)
[2025-04-09 11:52] LABS: International Normalized Ratio 1.2
[2025-04-09 11:53] LABS: Partial Thromboplast Time 31.8 Seconds (24.1-36.2)
[2025-04-09] MEDS: dilTIAZem 25 MG/5 ML Vial IV BOLUS (11:58)
--- NOTE | 2025-04-09 12:00 | HP.PCM.HOS_ITS ---
[facility] - General General Date of Admission: 04/09/25 Date of Service: 04/09/25 Chief Complaint: Recurrent GI bleed HPI Narrative BINDU DUMONT, is a 69 M who presented to [facility] ED on 04/09/2025 with concern for recurrent GI bleed. Patient has history of recurrent admissions for GI bleeds, follows with Dr. Ross. Was hospitalized about 3 weeks ago for a lower GI bleed due to recurrent angiodysplastic lesions in his GI tract. Lesions are secondary to his chronic renal disease and dialysis needs; has been evaluated for renal transplant but is not a candidate due to his baseline cardiac function. He now reports dark stools over the past 3 days. Denies any bright red blood per rectum. Has progressively gotten more fatigued over that timeframe. He is on dialysis Thursday and last dialysis session was yesterday; he tolerated this session without issue. On arrival to the ED he was tachycardic to the 110s and BP was in the 80s systolic. He was given a fluid bolus with improvement in blood pressure to the 100 systolic. He was noted to be in A-fib with RVR which is apparently a new diagnosis for him. He denied any palpitations. He was given a dose of IV Protonix and 2 units of blood were ordered. Hospitalist was then contacted for admission. I saw the patient at bedside in the ED, and son were present. Patient was fairly pale and fatigued appearing but was otherwise laying back comfortably in bed, conversing normally and in no acute distress. Had not had any bowel movements since arrival to the ED. Denied any abdominal pain or discomfort. No other acute concerns at this time. FORMERLY [facility], 1928–1983 Medical History Diverticulosis ESRD on hemodialysis Ischemic stroke Chronic anemia CVA (cerebral vascular accident) ESRD (end stage renal disease) Symptomatic anemia Carotid stenosis, right ESRD (end stage renal disease) on dialysis Acute anemia Black stool History of transcatheter aortic valve replacement (TAVR) Wears glasses History of steroid therapy History of renal disease Low iron Rheumatoid arthritis Back pain Migraine headache Dietary restriction History of diverticulitis History of ulceration Shortness of breath on exertion Lymphedema History of echocardiogram Cardiology follow-up encounter Hypertension Chronic renal failure Anemia DVT (deep venous thrombosis) End stage renal disease on dialysis Secondary hyperparathyroidism Generalized weakness Acute on chronic anemia Acute upper GI bleed History of end stage renal disease History of renal dialysis Dialysis patient Hepatitis Smoker Bursitis Problem with dialysis access Rectal bleeding Subclavian aneurysm Kidney failure due to vascular disorder Cardiac disease Rheumatoid vasculitis Rheumatoid aortitis Home Medications ?Medication ?Instructions ?Recorded ?Last Taken ?Type cyanocobalamin (vitamin B-12) 1,000 mcg PO DAILY suppl ement 01/12/24 04/09/25 History 1,000 mcg tablet (Vitamin B-12) acetaminophen 500 mg tablet 1,000 mg PO BID PAIN 12/0204/09/25 History carvedilol 12.5 mg tablet 25 mg PO SUMOWEFR High bp 04/09/25 History coenzyme Q10 200 mg capsule (Co 200 mg PO DAILY supple ment 12/02/24 04/09/25 History Q-10) epoetin beta, methoxy peg See Rx Instructions subcut 0 12/02/24 04/08/25 History .COMPLEX PRN low blood counts sevelamer carbonate 800 mg tablet 800 mg PO TIDCM phos phate binder 12/27/24 04/08/25 History ascorbic acid (vitamin C) 500 mg 500 mg PO BID supplem ent #60 tabs 12/29/24 04/08/25 Rx tablet aspirin 81 mg chewable tablet 81 mg PO DINNER heart he alth 01/19/25 04/08/25 History losartan 25 mg tablet 25 mg PO BID heart 02/03/25 04/09/25 History pantoprazole 40 mg tablet,delayed 40 mg PO BID stomach 30 days #60 02/10/25 04/09/25 Rx release (Protonix) tabs heparin (porcine) 5,000 unit/mL 5,000 unit subcut ONCE 02/27/25 04/08/25 History injection solution atorvastatin 40 mg tablet 40 mg PO QHS cholesterol #90 tabs 03/20/25 04/08/25 Rx iron IV .ONCE 03/20/25 04/08/25 H istory psyllium husk 0.4 gram capsule 0.4 g PO DAILY 03/23/25 04/08/25 History (Metamucil) octreotide,microspheres 30 mg 30 mg IM Q4W #1 ea 03/2703/28/25 Rx intramuscular susp, extended release (Sandostatin LAR Depot) cholecalciferol (vitamin D3) 125 125 mcg PO TUTHSA 12/0304/08/25 History mcg (5,000 unit) capsule cinacalcet 90 mg tablet (Sensipar) 90 mg PO TUTHSA 12/0304/08/25 History vitamin B complex-vitamin C-folic 1 tab PO SUMOWEFR 04/08/25 History acid 0.8 mg tablet (Dialyvite 800) Allergy/AdvReac Type Severity Reaction Status Date / Time No Known Allergies Allergy Verified 04/09/25 10:12 Family History Father Heart disease Atrial fibrillation Mother , 88 Heart disease Myocardial infarction Brother Heart disease Myocardial infarction Surgical History History of cardiac catheterization Hx of colonoscopy with polypectomy History of esophagogastroduodenoscopy (EGD) Hx of arteriovenostomy for renal dialysis (~12/2019) Status post insertion of dialysis catheter (~11/2019) History of umbilical hernia s/p subclavian graft S/P knee surgery History of bicuspid aortic valve Social History adopted: No household members: spouse housing: house number of children: 2 current occupational status: retired pets and animals: No sexually active: No Smoking Status: Light Smoker (<10/day) Tobacco: How many years used: 40 quit status: has quit before alcohol intake: never substance use type: does not use caffeine: Yes (2) Type: coffee what type of physical activity do you participate in: aerobics and other details: leg excercises frequency: 3-4 times per week do you feel safe at home: Yes ROS Constitutional Constitutional: Reports fatigue; Denies chills, fever(s) or weakness Eyes Eyes: Denies change in vision Cardiovascular Cardiovascular: Denies chest pain Respiratory/Chest Respiratory/Chest: Denies shortness of breath at rest Gastrointestinal Gastrointestinal: Reports melena; Denies abdominal pain, nausea or vomiting Genitourinary Genitourinary: Denies dysuria Musculoskeletal Musculoskeletal: Denies arthralgias or myalgias Neurologic Neurologic: Denies dizziness, focal weakness or headache(s) Vital Signs Vital Signs Vital Signs: 04/09/25 10:12 04/09/25 11:12 Temperature 97.7 F L Temperature Source Oral Pulse Rate 73 117 H Respiratory Rate 18 17 Blood Pressure 82/67 L 101/83 H Blood Pressure Mean 72 89 Pulse Ox 92 96 Oxygen Delivery Method Room Air Room Air Weight Weight: 85 kg Body Mass Index (BMI) 26.9 Physical Exam Const alert, oriented x3, no apparent distress and average body habitus Constitutional Narrative: Elderly male, fatigued and fairly pale appearing, otherwise laying back comfortably in bed, conversing normally, in no acute distress. General Appearance: cooperative and comfortable HEENT normocephalic, head/scalp atraumatic, hearing grossly normal bilaterally, nasal mucous membranes and turbinates normal and moist oral mucous membranes Eyes PERRL, EOMs intact bilaterally and conjunctivae normal Neck full ROM Chest inspection of chest normal Resp normal respiratory effort, normal air movement, no use of accessory muscles and clear to auscultation bilaterally Cardio no murmurs and peripheral pulses 2+ throughout Cardio Narrative: A-fib with RVR. GI normal to inspection, nondistended, normoactive bowel sounds, soft to palpation, non-tender and non-distended Back/Spine normal ROM Extremity normal to inspection, full ROM and no pedal edema Skin no rashes or lesions noted Psych mental status grossly normal Results Lab / Micro Data 04/09/25 10:24 04/09/25 10:24 Labs: Laboratory Results - last 24 hr 04/09/25 10:24: WBC 5.8, RBC 2.29 L, Hgb 7.2 L, Hct 22.9 L, MCV 100.0 H, MCH 31.4, MCHC 31.4 L, RDW Std Deviation 59.3 H, RDW Coeff of Brynn 16.3 H, Plt Count 171, MPV 12.0, Immature Gran % (Auto) 0.300, Neut % (Auto) 73.1 H, Lymph % (Auto) 10.9 L, [place] % (Auto) 13.1 H, Eos % (Auto) 2.1, Baso % (Auto) 0.5, Absolute Neuts (auto) 4.2, Absolute Lymphs (auto) 0.63 L, Nucleated RBC % 0, PT 15.0 H, INR 1.2, APTT 31.8, Sodium 138, Potassium 2.8 L, Chloride 94 L, Carbon Dioxide 28.4, Anion Gap 16 H, BUN 26 H, Creatinine 4.71 H, Estim Creat Clear Calc 15.28 L, Est GFR (MDRD) Non-Af 13 L, BUN/Creatinine Ratio 5.5 L, Glucose 100 H, Calcium 8.3, Total Bilirubin 0.45, AST 23, ALT 8, Alkaline Phosphatase 48, Total Protein 6.4, Albumin 3.9, Globulin 2.5, Albumin/Globulin Ratio 1.5, Crossmatch See Detail Rhythm Strip Rhythm Strip: A-fib Rate: 116 Ectopy: None Imaging Radiology Impression Chest X-Ray 04/09/25 11:20 IMPRESSION: No significant change since last exam. Reading Location: [id number] Assessment & Plan Assessment/Plan (1) Recurrent gastrointestinal hemorrhage: (2) Acute on chronic anemia: (3) Atrial fibrillation, new onset: PLAN: Plan Patient is a 69-year-old male who presented [facility] ED on 04/09/2025 with concern for recurrent GI bleed. 1. Recurrent GI bleed with acute on chronic anemia ? Admit under inpatient status to PCU. GI consulted. See recent GI notes and recent discharge summary from 03/16 for further details. Has history of recurrent lower GI bleeds due to angiodysplasias; presented with 3-day history of dark stools so unclear if upper versus lower GI bleed at this time. Hemoglobin 7.2 on admit, most recent hemoglobin 8.3 on 03/16. Patient tachycardic and pale appearing on exam. Will give 2 units of blood at this time. Follow-up a.m. CBC. Will start IV PPI twice daily for now. Okay for clear liquid diet today. Will keep n.p.o. at midnight with plan for upper and/or lower scopes tomorrow. 2. New onset A-fib with RVR ? Follows with outpatient cardiology. No prior diagnosis of A-fib noted on chart. EKG on admit confirmed A-fib with RVR with rate in the 110s. Suspect rate will improve with administration of blood as noted above. Discussed with patient and family that his stroke risk is increased and unfortunately we cannot mitigate this with a blood thinner given his recurrent GI bleeds. Will continue home baby aspirin at this time. Can consider cardiology consult while inpatient versus close outpatient follow-up after discharge. Continue home carvedilol for rate control. 3. ESRD on HD ? Nephrology consulted. On HD Thursday. Last HD session on day prior to admission. Appreciate nephrology recommendations. 4. Hypokalemia ? Potassium 2.8 on admit. Magnesium 1.8. Both are likely contributing to his A-fib as noted above. Replacing with IV potassium and magnesium. Follow-up a.m. potassium and magnesium levels. 5. Recent CVA with right carotid artery stenosis, hypertension, hyperlipidemia, history of bicuspid aortic valve s/p TAVR ? Recent hospitalization in early January for acute CVA. Was found to have severe right-sided carotid artery stenosis. Vascular surgery followed and noted that his severe anemia was likely contributing to the severe findings on carotid ultrasound and it was felt this was not the source of his stroke. Was suspected by neurology to be an ischemic stroke. Patient did not wear heart monitor to evaluate for A-fib. Continue home aspirin, statin, and Coreg. Holding home losartan in setting of mild hypotension on admission, resume as able. DVT prophylaxis: SCDs CODE STATUS: Full code, verified Expected disposition: Home, TBD Total clinical time spent by myself addressing the patient's medical issues, reviewing all the data, and collaborating with patient's care team: 75 minutes. Charges/Coding Visit Charges Inpatient E&M: 06559 Init Hosp L3
[2025-04-09] MEDS: Potassium Chloride 10mEq/100mL 10 MEQ/100 ML IV.SOLN. 100 MEQ IV BOLUS ×2 (12:08→13:14)
[2025-04-09 12:19] LABS: Troponin T High Sensitivity 159 ng/L (<=22)
[2025-04-09 12:30] LABS: Magnesium 1.8 mg/dL (1.5-2.2); Phosphorus 3.2 mg/dL (2.7-4.5)
[2025-04-09 13:34] LABS: Troponin T High Sens 2 HR 214 ng/L (<=22)
[2025-04-09] MEDS: Magnesium Sulfate 2 GM in Dextrose 5%-Water (100mL Bag) 100 ML IV (15:09)
[2025-04-09 17:18] LABS: Troponin T High Sens 4 HR 394 ng/L (<=22)
[2025-04-09 19:35] LABS: Hemoglobin 8.6 g/dL (13.0-16.5)
[2025-04-09] MEDS: 0.9% Saline Lock 10 ML Syringe IV (22:29)
[2025-04-09] MEDS: Pantoprazole Sodium 40 MG in 0.9% Normal Saline (100mL MB+) 100 ML 330 MG IV (22:29)
[2025-04-09] MEDS: Atorvastatin Calcium 40 MG Tablet PO (22:32)
[2025-04-09] MEDS: Acetaminophen 500 MG Tablet 1000 MG PO (22:32)
[2025-04-10] VITALS (15 sets, daily range): BP systolic 71–118; BP diastolic 60–92; PULSE 90–124; RESP 16–18; TEMP 36.4–37; O2SAT 93–98; BMI 26.9
[2025-04-10 04:57] LABS: Hematocrit 27.6 % (40-54); Mean Corp Hgb Conc 32.6 g/dL (32-36); Mean Corpuscular Hgb 31.1 pg (27.0-32.0); Mean Corpuscular Volume 95.5 fL (80-94); Mean Platelet Vol. 11.8 fl (6.2-12.0); Platelet Count 169 K/mm3 (150-450); RBC Distribution Width CV 18.2 % (11.6-14.6); RBC Distribution Width SD 62.6 fl (35.1-43.9); Red Blood Count 2.89 M/mm3 (4.6-6.2); White Blood Count 8.1 K/mm3 (4.4-11.0)
[2025-04-10 05:24] LABS: Anion Gap 16 (5-15); BUN 32 mg/dL (4-19); BUN/Creat Ratio 5.6 RATIO (10-20); Calcium,Total 8.6 mg/dL (7.6-11.0); Carbon Dioxide 27.2 mmol/L (21.0-32.0); Chloride 95 mmol/L (98-108); Creatinine, Serum 5.79 mg/dL (0.70-1.20); EST Glomerular Filtration Rate 10 (>60); Estimated Creatinine Clearance 12.43 ml/min (50-250); Glucose 81 mg/dL (70-99); Potassium 3.2 mmol/L (3.3-5.1); Sodium Level 138 mmol/L (133-145)
--- NOTE | 2025-04-10 08:45 | PCM.PN.HOSP ---
Reason for Visit Reason for Visit: Diagnoses Anemia, unspecified (04/09/25) Unspecified atrial fibrillation (04/09/25) Gastrointestinal hemorrhage, unspecified (04/09/25) Subjective Subjective Stool still black, but less intense. Asking for cardiology consultation given the afib. Objective Data Objective Data Vital Signs: Vital Signs Temp Pulse Resp BP Pulse Ox O2 Del Method 36.9 C 108 H 16 104/91 H 93 Room Air 04/10/25 02:35 04/10/25 02:35 04/10/25 02:35 04/10/25 02:35 04/10/25 02:35 04/10/25 02:38 Oxygen Delivery Method Room Air Weight: 85 kg Body Mass Index (BMI) 26.9 Intake & Output: Intake and Output for Last 24 Hours 04/08/25 04/09/25 04/10/25 23:59 23:59 23:59 Intake Total 1637.33 / 1637.33 Balance 1637.33 / 1637.33 Lab / Micro Data 04/10/25 04:28 04/10/25 04:28 Labs: Laboratory Results - last 24 hr 04/09/25 10:24: WBC 5.8, RBC 2.29 L, Hgb 7.2 L, Hct 22.9 L, MCV 100.0 H, MCH 31.4, MCHC 31.4 L, RDW Std Deviation 59.3 H, RDW Coeff of Brynn 16.3 H, Plt Count 171, MPV 12.0, Immature Gran % (Auto) 0.300, Neut % (Auto) 73.1 H, Lymph % (Auto) 10.9 L, Yates % (Auto) 13.1 H, Eos % (Auto) 2.1, Baso % (Auto) 0.5, Absolute Neuts (auto) 4.2, Absolute Lymphs (auto) 0.63 L, Nucleated RBC % 0, PT 15.0 H, INR 1.2, APTT 31.8, Sodium 138, Potassium 2.8 L, Chloride 94 L, Carbon Dioxide 28.4, Anion Gap 16 H, BUN 26 H, Creatinine 4.71 H, Estim Creat Clear Calc 15.28 L, Est GFR (MDRD) Non-Af 13 L, BUN/Creatinine Ratio 5.5 L, Glucose 100 H, Calcium 8.3, Phosphorus 3.2, Magnesium 1.8, Total Bilirubin 0.45, AST 23, ALT 8, Alkaline Phosphatase 48, Troponin T High Sens 159 H* D, Total Protein 6.4, Albumin 3.9, Globulin 2.5, Albumin/Globulin Ratio 1.5, Blood Type A POSITIVE, Antibody Screen NEGATIVE, Crossmatch See Detail 04/09/25 12:46: Troponin T Hi Sens 2 Hr 214 H* 04/09/25 15:18: Troponin T Hi Sens 4Hr 394 H* 04/09/25 19:23: Hgb 8.6 L 04/10/25 04:28: WBC 8.1, RBC 2.89 L, Hgb 9.0 L, Hct 27.6 L, MCV 95.5 H, MCH 31.1, MCHC 32.6, RDW Std Deviation 62.6 H, RDW Coeff of Brynn 18.2 H, Plt Count 169, MPV 11.8, Sodium 138, Potassium 3.2 L, Chloride 95 L, Carbon Dioxide 27.2, Anion Gap 16 H, BUN 32 H, Creatinine 5.79 H, Estim Creat Clear Calc 12.43 L, Est GFR (MDRD) Non-Af 10 L, BUN/Creatinine Ratio 5.6 L, Glucose 81, Calcium 8.6 Radiography Diagnostic Testing: Radiology Impression Chest X-Ray 04/09/25 11:20 IMPRESSION: No significant change since last exam. Reading Location: [facility] Rhythm Strip Rhythm Strip: A-fib Rate: 116 Ectopy: None Physical Exam Const alert and no apparent distress Constitutional Narrative: up in chair. non toxic. HEENT head/scalp atraumatic and moist oral mucous membranes Resp normal respiratory effort, no retractions, no use of accessory muscles and clear to auscultation bilaterally Cardio regular rate, regular rhythm, S1 normal heart sound and S2 normal heart sound Assessment & Plan Assessment/Plan (1) Recurrent gastrointestinal hemorrhage: PLAN: Recurrent GI bleed with acute on chronic anemia Admit under inpatient status to PCU. GI consulted. See recent GI notes and recent discharge summary from 03/16 for further details. Has history of recurrent lower GI bleeds due to angiodysplasias; presented with 3-day history of dark stools so unclear if upper versus lower GI bleed at this time. Hemoglobin 7.2 on admit, most recent hemoglobin 8.3 on 03/16. Patient tachycardic and pale appearing on exam. Will give 2 units of blood at this time. Follow-up a.m. CBC. Will start IV PPI twice daily for now. Okay for clear liquid diet today. Will keep n.p.o. at midnight with plan for upper and/or lower scopes tomorrow. (2) Acute on chronic anemia: PLAN: s/p transfusion of PRBCs. (3) Atrial fibrillation, new onset: PLAN: new onset A-fib with RVR Follows with outpatient cardiology. Still in afib. DW Dr. Palomo, the patient's cork compounder, he does not feel a consult is necessary at this time, but recommended changing his carvedilol. At home his carvedilol is 25 QSuMoWeFr, he recommeded changing it to 6.25 BID daily. Since patient already received his 25 of carvedilol today, will start the changed dosing on 04/11. PLAN: Plan Chronic conditions: ESRD on HD? Nephrology consulted. On HD Thursday. Last HD session on day prior to admission. Appreciate nephrology recommendations. Recent CVA with right carotid artery stenosis, hypertension, hyperlipidemia, history of bicuspid aortic valve s/p TAVR? Recent hospitalization in early January for acute CVA. Was found to have severe right-sided carotid artery stenosis. Vascular surgery followed and noted that his severe anemia was likely contributing to the severe findings on carotid ultrasound and it was felt this was not the source of his stroke. Was suspected by neurology to be an ischemic stroke. Patient did not wear heart monitor to evaluate for A-fib. Continue home aspirin, statin, and Coreg. Holding home losartan in setting of mild hypotension on admission, resume as able. DVT prophylaxis: SCDs IRIS patient's at bedside. Greater than 55 minutes, of which greater than 50% of the time was counseling the patient at bedside about GI bleed, afib with he and his spouse. Charges/Coding Visit Charges Inpatient E&M: 67737 Subs Hosp L3
[2025-04-10] MEDS: Carvedilol 25 MG Tablet PO (09:44)
[2025-04-10] MEDS: Acetaminophen 500 MG Tablet 1000 MG PO ×2 (09:44→20:38)
[2025-04-10] MEDS: 0.9% Saline Lock 10 ML Syringe IV ×3 (09:44→20:49)
[2025-04-10] MEDS: Pantoprazole Sodium 40 MG in 0.9% Normal Saline (100mL MB+) 100 ML 330 MG IV ×2 (09:46→20:49)
[2025-04-10] MEDS: Potassium Chloride 10mEq/100mL 10 MEQ/100 ML IV.SOLN. 100 MEQ IV BOLUS ×4 (11:39→16:06)
[2025-04-10] MEDS: 0.9% Normal Saline (250mL Bag) 250 ML 15 ML IV (11:40)
--- NOTE | 2025-04-10 11:51 | CASEMGMT ---
REBECCA REDMOND Assessment Face to Face with patient for initial transition planning/care coordination assessment. REBECCA REDMOND introduced self and role at [facility], pt voices understanding. Pt is A&Ox4 and is resting comfortably in bed and is calm. Pt at bedside. Care providers, pharmacy, and demographics verified. Admitting dx: Recurrent GI Bleed LACE Strata: 3 PCP: Pavithra Henning Specialists: Cody (GI), Stacia ([facility]), Beckie (Clinical Psychology Teacher - [facility]), Rafaela (Nephro), Jose (Vascular), Hawk (Neuro), Ede (Hematology), Dr. García and Dr. Pro (Vascular Surgery - [facility]) Preferred Pharmacy: [facility] Insurance: [employer] A/B, [employer] Prescription Benefit: Yes LNOK: Rohini (W) Living Arrangements: Pt lives with his in a single story home with 2 steps to enter ADLs/IADLs: Independent Transportation: Pt's DME: Cane, BP Machine, pulse ox HHC/SNF: Denies hx or needs HD: Pt attends HD at [facility] in [facility] with a 0945 chair time. Pt's drives the pt and denies concerns Pt?s goal: Home Plan: GI scope today. Pt wishes to DC home subsequently and states that he wishes to go to his OP HD center tomorrow. 6-Click score is 24. Pt denies additional therapy needs. Pt and pt's are requesting cardiology to be consulted d/t the new onset A-Fib. Dr. Palomo and the hospitalist are aware. Pt and pt's deny further DC needs at this time. Report given to RN OBSERVATION CM. Verena Sanchez RN, CM
--- NOTE | 2025-04-10 12:57 | NURSING ---
Report called to Sallie in [facility].
[2025-04-10] MEDS: 0.9% Normal Saline (500mL Bag) 500 ML 15 ML IV (13:21)
--- NOTE | 2025-04-10 13:28 | PRE.ANES_ITS ---
ASA Classification* ASA Classification ASA Classification: 4 (hx CVA 01/2025 with speech deficits, s/p TAVR 04/2024, CAD, ESRD, b/l carotid artery stenosis, new onset Afib with RVR on carvedilol for rate control, hypokalemia and magnesium low. ) and E (Use etomidate for induction, then can use small boluses of propofol. Have esmolol available and ready. Let anesthesiologist know prior to starting case so I am aware. Very sick patient ) Assessment & Plan Anesthesia* Anesthesia Assessment Anesthesia Assessment: Discussed sedation and/or anesthesia options, risks, benefits, and alternatives with patient/parents/legal guardian/POA. Questions invited. The patient/parents/legal guardian/POA seems to understand and agrees to proceed with anesthesia plan. Reviewed the physical assessment, medical history, allergy history and patient home medications list prior to surgery/procedure/anesthetic and documented any changes. Performed airway and anesthesia risk assessments. Anesthesia Type Anesthesia Type: General History Source History Obtained from:: Patient and Chart Anesthesia Focused Assessment* Temperature: 98.6 F Pulse Rate: 124 Blood Pressure: 118/92 Respiratory Rate: 17 Pulse Ox: 96 Oxygen Delivery Method: Room Air Airway Assessment Mouth opens: >3 cm Mallampati Score: II Teeth Condition: Intact Neck Range of motion (ROM): Full ROM Focused Labs Anesthesia Preop lab: CBC WBC 8.1 K/mm3 (4.4-11.0) 04/10/25 04:04/10/25 RBC 2.89 M/mm3 (4.6-6.2) L 04/10/25 04:04/10/25 Hgb 9.0 g/dL (13.0-16.5) L 04/10/25 04:28 04/10/25 Hct 27.6 % (40-54) L 04/10/25 04:28 04/10/25 Plt Count 169 K/mm3 (150-450) 04/10/25 04:28 04/10/25 CHEMISTRY Potassium 3.2 mmol/L (3.3-5.1) L 04/10/25 04:28 04/10/25 Sodium 138 mmol/L (133-145) 04/10/25 04:28 04/10/25 Magnesium 1.8 mg/dL (1.5-2.2) 04/09/25 10:24 04/09/25 Phosphorus 3.2 mg/dL (2.7-4.5) 04/09/25 10:24 04/09/25 BUN 32 mg/dL (4-19) H 04/10/25 04:28 04/10/25 Creatinine 5.79 mg/dL (0.70-1.20) H 04/10/25 04:28 Glucose 81 mg/dL (70-99) 04/10/25 04:04/10/25 TSH 1.430 uIU/mL (0.300-4.200) 03/03/25 03:43 0404/02 COAG PT 15.0 SECONDS (11.7-14.9) H 04/09/25 10:24 12/03 Pre-Assessment Diagnosis/Proposed Procedure Planned Operative Procedure(s): EGD Anesthesia History Anesthesia History - partner management consultant: Anesthesia History - partner management consultant Hx Hospitalization Yes: MULTIPLE TIMES IN 02/10/25 11:35 Any Problems With Anesthesia No 04/10/25 12:47 Cholinesterase deficiency No 04/10/25 12:47 You/Your Family Experience No 04/10/25 12:47 fever (hyperthermia) with Relationship Recent Exposure to Contagious No 04/10/25 12:47 Disease Does patient have nerve No 04/10/25 12:47 stimulator Patient instructed to have device shut off --Does patient have Pacemaker No 04/10/25 09:58 or ICD? When Was Last Pacemaker Check QUESTION #4 FULL TEXT: You/Your Family Experience fever (hyperthermia) with Anesthesia Last Oral Intake Last Oral intake: Last Oral Intake NPO since 00:00 04/10/25 09:58 Meds taken in AM with sips of Yes 04/10/25 09:58 water? Meds patient instructed to coreg 25mg @ 0944 04/10/25 09:58 take am of surgery tylenol 100mg @ 0944 PONV PONV - partner management consultant: PONV - partner management consultant Female HX of Motion Sickness HX of N/V After Surgery Non-Smoker Duration of Surgery greater than 60 minutes Number of Risk Factors PONV Score Height & Weight Height & Weight: Anesthesia: Height & Weight Height 5 ft 10 in 04/10/25 09:58 Weight: 85 kg 04/10/25 09:58 Body Mass Index (BMI) 26.9 04/10/25 09:58 Respiratory Assessment Respiratory Assessment - partner management consultant: Respiratory Tract Infection Hx - partner management consultant Hx Respiratory Tract Infection No 04/10/25 12:47 STOP Sleep Apnea STOP Sleep Apnea - partner management consultant: STOP Sleep Apnea - partner management consultant Hx Hypertension Yes 04/09/25 13:51 Hx Sleep Apnea No 04/09/25 13:51 CPAP No 03/03/25 02:22 BIPAP Do you snore loudly (louder No 04/09/25 13:51 than talking or can be heard Do you often feel tired/ No 04/09/25 13:51 fatigued/ sleepy during daytime? Has anyone observed you stop No 04/09/25 13:51 breathing during sleep? STOP Results Negative 04/09/25 13:51 QUESTION #5 FULL TEXT : Do you snore loudly (louder than talking or can be heard through closed doors)? 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 Specify any problems Hx of Preganancy in last 3 N/A 04/09/25 13:51 Months Nurse Filling Out Transfusion NBILANCIN 04/09/25 13:51 & Questions: Date: 04/09/25 04/09/25 13:51 Time: 13:54 04/09/25 13:51 Patient unable to answer at this time (ie. confused, unrespo /Reproduction History /Reproductive History - partner management consultant: /Reproductive Hx- partner management consultant Hx Now No 04/10/25 12:47 Gestational Age (in weeks): EDC: Hx Hx Para Hx Section SAB No 02/10/25 11:35 Active Medications Active Medications: Current Medications Generic Name Dose Route Start Last Admin Trade Name Freq PRN Reason Stop Dose Admin Acetaminophen 1,000 mg 04/09/25 22:00 04/10/25 09:44 Acetaminophen 500 Mg Tablet PO 1,000 mg BID DEBORAH Administration Ascorbic Acid 500 mg 04/09/25 22:00 04/10/25 09:45 Ascorbic Acid 500 Mg Tablet PO Not Given BID DEBORAH Aspirin 81 mg 04/09/25 17:00 Aspirin 81 Mg Tab.Chew PO DINNER DEBORAH Atorvastatin Calcium 40 mg 04/09/25 22:00 04/09/25 22:32 Atorvastatin Calcium 40 Mg Tablet PO 40 mg QHS DEBORAH Administration Carvedilol 25 mg 04/10/25 10:00 04/10/25 09:44 Carvedilol 25 Mg Tablet PO 25 mg SuMoWeFr@1000 DEBORAH Administration Cholecalciferol 125 mcg 04/11/25 10:00 Cholecalciferol (Vit D3) 125 Mcg Capsule (5,000 Units) PO TuThSa@1000 DEBORAH Cinacalcet 90 mg 04/11/25 16:00 Cinacalcet Hcl 30 Mg Tablet PO TuThSa@1600 [facility] Cyanocobalamin 1,000 mcg 04/10/25 10:00 04/10/25 09:45 Cyanocobalamin 500 Mcg Tablet PO Not Given DAILY DEBORAH Sodium Chloride 500 mls @ 15 mls/hr 04/09/25 13:57 IV PRN PRN Blood Transfusion Sodium Chloride 250 mls @ 15 mls/hr 04/09/25 13:57 04/10/25 11:41 IV 0 mls/hr .[id number] PRN Infusion Saline Flush Sodium Chloride 250 mls @ 15 mls/hr 04/09/25 13:57 IV .[id number] PRN Additional IVPB Infusion Pantoprazole Sodium 40 mg/ 100 mls @ 330 mls/hr 04/09/25 22:00 04/10/25 10:15 Sodium Chloride IV Infused Q12 DEBORAH Infusion Potassium Chloride 10 meq in 100 mls @ 100 mls/hr 04/10/25 11:30 04/10/25 12:44 IV BOLUS 04/10/25 15:29 100 mls/hr Q1H DEBORAH Administration Sodium Chloride 500 mls @ 0 mls/hr 04/10/25 13:30 04/10/25 13:21 IV 15 mls/hr .Q0M DEBORAH Administration KVO Melatonin 3 mg 04/09/25 14:04 Melatonin 3 Mg Tablet PO QHS PRN PRN INSOMNIA Metoprolol Tartrate 5 mg 04/09/25 17:33 Metoprolol Tartrate 5 Mg/5 Ml Vial IV Q6H PRN PRN Tachycardia Protocol Multivitamins 1 tablet 04/10/25 08:00 04/10/25 09:45 Multivitamins,Therapeutic Tablet PO Not Given SuMoWeFr@0800 DEBORAH Ondansetron HCl 4 mg 04/09/25 14:04 Ondansetron 4 Mg/2 Ml Vial IV Q8H PRN PRN NAUSEA/VOMITING Sevelamer Carbonate 800 mg 04/09/25 17:00 04/10/25 11:19 Sevelamer Carbonate 800 Mg Tablet PO Not Given TIDCM DEBORAH Sodium Chloride 10 - 40 ml 04/09/25 13:57 04/10/25 09:44 0.9% Saline Lock 10 Ml Syringe IV 10 ml UD PRN Administration SALINE FLUSH PFSH Medical History Diverticulosis ESRD on hemodialysis Ischemic stroke Chronic anemia CVA (cerebral vascular accident) ESRD (end stage renal disease) Symptomatic anemia Carotid stenosis, right ESRD (end stage renal disease) on dialysis Acute anemia Black stool History of transcatheter aortic valve replacement (TAVR) Wears glasses History of steroid therapy History of renal disease Low iron Rheumatoid arthritis Back pain Migraine headache Dietary restriction History of diverticulitis History of ulceration Shortness of breath on exertion Lymphedema History of echocardiogram Cardiology follow-up encounter Hypertension Chronic renal failure Anemia DVT (deep venous thrombosis) End stage renal disease on dialysis Secondary hyperparathyroidism Generalized weakness Acute on chronic anemia Acute upper GI bleed History of end stage renal disease History of renal dialysis Dialysis patient Hepatitis Smoker Bursitis Problem with dialysis access Rectal bleeding Subclavian aneurysm Kidney failure due to vascular disorder Cardiac disease Rheumatoid vasculitis Rheumatoid aortitis Home Medications ?Medication ?Instructions ?Recorded ?Last Taken ?Type cyanocobalamin (vitamin B-12) 1,000 mcg PO DAILY suppl ement 01/12/24 04/09/25 History 1,000 mcg tablet (Vitamin B-12) acetaminophen 500 mg tablet 1,000 mg PO BID PAIN 12/0204/09/25 History carvedilol 12.5 mg tablet 25 mg PO SUMOWEFR High bp 04/09/25 History coenzyme Q10 200 mg capsule (Co 200 mg PO DAILY supple ment 12/02/24 04/09/25 History Q-10) epoetin beta, methoxy peg See Rx Instructions subcut 0 12/02/24 04/08/25 History .COMPLEX PRN low blood counts sevelamer carbonate 800 mg tablet 800 mg PO TIDCM phos phate binder 12/27/24 History ascorbic acid (vitamin C) 500 mg 500 mg PO BID supplem ent #60 tabs 12/29/24 04/08/25 Rx tablet aspirin 81 mg chewable tablet 81 mg PO DINNER heart he alth 01/19/25 04/08/25 History losartan 25 mg tablet 25 mg PO BID heart 02/03/25 04/09/25 History pantoprazole 40 mg tablet,delayed 40 mg PO BID stomach 30 days #60 02/10/25 04/09/25 Rx release (Protonix) tabs heparin (porcine) 5,000 unit/mL 5,000 unit subcut ONCE 02/27/25 04/08/25 History injection solution atorvastatin 40 mg tablet 40 mg PO QHS cholesterol #90 tabs 03/20/25 04/08/25 Rx iron IV .ONCE 03/20/25 04/08/25 H istory psyllium husk 0.4 gram capsule 0.4 g PO DAILY 03/23/25 04/08/25 History (Metamucil) octreotide,microspheres 30 mg 30 mg IM Q4W #1 ea 03/2703/28/25 Rx intramuscular susp, extended release (Sandostatin [place]) cholecalciferol (vitamin D3) 125 125 mcg PO TUTHSA 12/0304/08/25 History mcg (5,000 unit) capsule cinacalcet 90 mg tablet (Sensipar) 90 mg PO TUTHSA 12/0304/08/25 History vitamin B complex-vitamin C-folic 1 tab PO SUMOWEFR 04/08/25 History acid 0.8 mg tablet (Dialyvite 800) Allergy/AdvReac Type Severity Reaction Status Date / Time No Known Allergies Allergy Verified 04/09/25 10:12 Family History Father Heart disease Atrial fibrillation Mother , 88 Heart disease Myocardial infarction Brother Heart disease Myocardial infarction Surgical History History of cardiac catheterization Hx of colonoscopy with polypectomy History of esophagogastroduodenoscopy (EGD) Hx of arteriovenostomy for renal dialysis (~12/2019) Status post insertion of dialysis catheter (~11/2019) History of umbilical hernia s/p subclavian graft S/P knee surgery History of bicuspid aortic valve Social History adopted: No household members: spouse housing: house number of children: 2 current occupational status: retired pets and animals: No sexually active: No Smoking Status: Light Smoker (<10/day) Tobacco: How many years used: 40 quit status: has quit before alcohol intake: never substance use type: does not use caffeine: Yes (2) Type: coffee what type of physical activity do you participate in: aerobics and other details: leg excercises frequency: 3-4 times per week do you feel safe at home: Yes Review of Systems (Anesthesia) ROS Narrative System reviewed and no additional complaints, except as documented.
--- NOTE | 2025-04-10 13:41 | PCM.PN.BLA ---
Progress Note Patient is known to GI service. He comes in with recurrent small bowel bleed secondary to angiodysplasia. He is status post transfusion of 2 units of packed red blood cells. He has been NPO. Physical Exam Const alert, oriented x3, no apparent distress and average body habitus General Appearance: cooperative and comfortable HEENT normocephalic, head/scalp atraumatic, hearing grossly normal bilaterally, nasal mucous membranes and turbinates normal and moist oral mucous membranes Eyes PERRL, EOMs intact bilaterally and conjunctivae normal Neck full ROM Chest inspection of chest normal Resp normal respiratory effort, normal air movement, no use of accessory muscles and clear to auscultation bilaterally Cardio no murmurs and peripheral pulses 2+ throughout Cardio Narrative: A-fib with RVR. GI normal to inspection, nondistended, normoactive bowel sounds, soft to palpation, non-tender and non-distended Back/Spine normal ROM Extremity normal to inspection, full ROM and no pedal edema Skin no rashes or lesions noted Psych mental status grossly normal Assessment & Plan Assessment/Plan (1) Recurrent gastrointestinal hemorrhage: PLAN: Patient will undergo EGD with push enteroscopy. He was explained alternatives, risk and benefits going understanding bleeding, infection, sepsis, perforation, need emergent . He will then ASA of 3. Visit Charges Inpatient E&M: 51537 Subs Hosp L2
--- NOTE | 2025-04-10 13:46 | PRE.ANES_ITS ---
ASA Classification* ASA Classification ASA Classification: 4 (hx CVA 01/2025 with speech deficits, s/p TAVR 04/2024, CAD, ESRD, b/l carotid artery stenosis, new onset Afib with RVR on carvedilol for rate control, hypokalemia and magnesium low. ) and E (Use etomidate for induction, then can use small boluses of propofol. Have esmolol available and ready. Let anesthesiologist know prior to starting case so I am aware. Very sick patient ) Assessment & Plan Anesthesia* Anesthesia Assessment Anesthesia Assessment: Discussed sedation and/or anesthesia options, risks, benefits, and alternatives with patient/parents/legal guardian/POA. Questions invited. The patient/parents/legal guardian/POA seems to understand and agrees to proceed with anesthesia plan. Reviewed the physical assessment, medical history, allergy history and patient home medications list prior to surgery/procedure/anesthetic and documented any changes. Performed airway and anesthesia risk assessments. Anesthesia Type Anesthesia Type: General History Source History Obtained from:: Patient and Chart Anesthesia Focused Assessment* Temperature: 98.6 F Pulse Rate: 124 Blood Pressure: 118/92 Respiratory Rate: 17 Pulse Ox: 96 Oxygen Delivery Method: Room Air Airway Assessment Mouth opens: >3 cm Mallampati Score: II Teeth Condition: Missing (no teeth) Neck Range of motion (ROM): Full ROM Focused Labs Anesthesia Preop lab: CBC WBC 8.1 K/mm3 (4.4-11.0) 04/10/25 04:04/10/25 RBC 2.89 M/mm3 (4.6-6.2) L 04/10/25 04:28 04/10/25 Hgb 9.0 g/dL (13.0-16.5) L 04/10/25 04:28 04/10/25 Hct 27.6 % (40-54) L 04/10/25 04:28 04/10/25 Plt Count 169 K/mm3 (150-450) 04/10/25 04:28 04/10/25 CHEMISTRY Potassium 3.2 mmol/L (3.3-5.1) L 04/10/25 04:28 04/10/25 Sodium 138 mmol/L (133-145) 04/10/25 04:28 04/10/25 Magnesium 1.8 mg/dL (1.5-2.2) 04/09/25 10:24 04/09/25 Phosphorus 3.2 mg/dL (2.7-4.5) 04/09/25 10:24 04/09/25 BUN 32 mg/dL (4-19) H 04/10/25 04:28 04/10/25 Creatinine 5.79 mg/dL (0.70-1.20) H 04/10/25 04:28 Glucose 81 mg/dL (70-99) 04/10/25 04:04/10/25 TSH 1.430 uIU/mL (0.300-4.200) 03/03/25 03:43 02/08 04/02 COAG PT 15.0 SECONDS (11.7-14.9) H 04/09/25 10:24 12/03 Pre-Assessment Diagnosis/Proposed Procedure Planned Operative Procedure(s): EGD Anesthesia History Anesthesia History - diagnostics sales developer: Anesthesia History - diagnostics sales developer Hx Hospitalization Yes: MULTIPLE TIMES IN 02/10/25 11:35 Any Problems With Anesthesia No 04/10/25 12:47 Cholinesterase deficiency No 04/10/25 12:47 You/Your Family Experience No 04/10/25 12:47 fever (hyperthermia) with Relationship Recent Exposure to Contagious No 04/10/25 12:47 Disease Does patient have nerve No 04/10/25 12:47 stimulator Patient instructed to have device shut off --Does patient have Pacemaker No 04/10/25 09:58 or ICD? When Was Last Pacemaker Check QUESTION #4 FULL TEXT: You/Your Family Experience fever (hyperthermia) with Anesthesia Last Oral Intake Last Oral intake: Last Oral Intake NPO since 00:00 04/10/25 09:58 Meds taken in AM with sips of Yes 04/10/25 09:58 water? Meds patient instructed to coreg 25mg @ 0944 04/10/25 09:58 take am of surgery tylenol 100mg @ 0944 PONV PONV - diagnostics sales developer: PONV - diagnostics sales developer Female HX of Motion Sickness HX of N/V After Surgery Non-Smoker Duration of Surgery greater than 60 minutes Number of Risk Factors PONV Score Height & Weight Height & Weight: Anesthesia: Height & Weight Height 5 ft 10 in 04/10/25 09:58 Weight: 85 kg 04/10/25 09:58 Body Mass Index (BMI) 26.9 04/10/25 09:58 Respiratory Assessment Respiratory Assessment - diagnostics sales developer: Respiratory Tract Infection Hx - diagnostics sales developer Hx Respiratory Tract Infection No 04/10/25 12:47 STOP Sleep Apnea STOP Sleep Apnea - diagnostics sales developer: STOP Sleep Apnea - diagnostics sales developer Hx Hypertension Yes 04/09/25 13:51 Hx Sleep Apnea No 04/09/25 13:51 CPAP No 03/03/25 02:22 BIPAP Do you snore loudly (louder No 04/09/25 13:51 than talking or can be heard Do you often feel tired/ No 04/09/25 13:51 fatigued/ sleepy during daytime? Has anyone observed you stop No 04/09/25 13:51 breathing during sleep? STOP Results Negative 04/09/25 13:51 QUESTION #5 FULL TEXT : Do you snore loudly (louder than talking or can be heard through closed doors)? Tobacco Use History Tobacco Use History - diagnostics sales developer: Tobacco Use History - diagnostics sales developer Tobacco Use Cigarettes 02/10/25 11:35 Smoking Status Light Smoker (<10/day) 04/09/25 14:09 Hx Tobacco Use Yes 04/09/25 13:51 Years Smoking Packs Smoked per Day Smoking Cessation Date was within the last 15 years Hx Smoking Cessation Date Hx Smoking Cessation No 04/09/25 13:51 Counseling Hematologic Medial History Hematologic Hx - diagnostics sales developer: Hematologic Medical Hx - marketing consultant Hx of Blood Transfusion Yes 04/09/25 13:51 Hx of Transfusion in last 3 Yes 04/09/25 13:51 Months Date of Last Transfusion (if 04/09/25 04/09/25 13:51 within last 3 months) Ever experience any problems No 04/09/25 13:51 with transfusion(s)? Specify any problems Hx of Preganancy in last 3 N/A 04/09/25 13:51 Months Nurse Filling Out Transfusion NBILANCIN 04/09/25 13:51 & Questions: Date: 04/09/25 04/09/25 13:51 Time: 13:54 04/09/25 13:51 Patient unable to answer at this time (ie. confused, unrespo /Reproduction History /Reproductive History - diagnostics sales developer: /Reproductive Hx- diagnostics sales developer Hx Now No 04/10/25 12:47 Gestational Age (in weeks): EDC: Hx Hx Para Hx Section SAB No 02/10/25 11:35 Active Medications Active Medications: Current Medications Generic Name Dose Route Start Last Admin Trade Name Freq PRN Reason Stop Dose Admin Acetaminophen 1,000 mg 04/09/25 22:00 04/10/25 09:44 Acetaminophen 500 Mg Tablet PO 1,000 mg BID DEBORAH Administration Ascorbic Acid 500 mg 04/09/25 22:00 04/10/25 09:45 Ascorbic Acid 500 Mg Tablet PO Not Given BID DEBORAH Aspirin 81 mg 04/09/25 17:00 Aspirin 81 Mg Tab.Chew PO DINNER [facility] Atorvastatin Calcium 40 mg 04/09/25 22:00 04/09/25 22:32 Atorvastatin Calcium 40 Mg Tablet PO 40 mg QHS [facility] Administration Carvedilol 6.25 mg 04/11/25 06:00 [facility] 6.[facility] Protocol Cholecalciferol 125 mcg 04/11/25 10:00 Cholecalciferol (Vit D3) 125 Mcg Capsule (5,000 Units) PO TuThSa@1000 [facility] Cinacalcet 90 mg 04/11/25 16:00 Cinacalcet Hcl 30 Mg Tablet PO TuThSa@1600 [facility] Cyanocobalamin 1,000 mcg 04/10/25 10:00 04/10/25 09:45 Cyanocobalamin 500 Mcg Tablet PO Not Given DAILY DEBORAH Sodium Chloride 500 mls @ 15 mls/hr 04/09/25 13:57 IV PRN PRN Blood Transfusion Sodium Chloride 250 mls @ 15 mls/hr 04/09/25 13:57 04/10/25 11:41 IV 0 mls/hr .[id number] PRN Infusion Saline Flush Sodium Chloride 250 mls @ 15 mls/hr 04/09/25 13:57 IV .[id number] PRN Additional IVPB Infusion Pantoprazole Sodium 40 mg/ 100 mls @ 330 mls/hr 04/09/25 22:00 04/10/25 10:15 Sodium Chloride IV Infused Q12 DEBORAH Infusion Potassium Chloride 10 meq in 100 mls @ 100 mls/hr 04/10/25 11:30 04/10/25 12:44 IV BOLUS 04/10/25 15:29 100 mls/hr Q1H DEBORAH Administration Sodium Chloride 500 mls @ 0 mls/hr 04/10/25 13:30 04/10/25 13:21 IV 15 mls/hr .Q0M DEBORAH Administration KVO Melatonin 3 mg 04/09/25 14:04 Melatonin 3 Mg Tablet PO QHS PRN PRN INSOMNIA Metoprolol Tartrate 5 mg 04/09/25 17:33 Metoprolol Tartrate 5 Mg/5 Ml Vial IV Q6H PRN PRN Tachycardia Protocol Multivitamins 1 tablet 04/10/25 08:00 04/10/25 09:45 Multivitamins,Therapeutic Tablet PO Not Given [id number] DEBORAH Ondansetron HCl 4 mg 04/09/25 14:04 Ondansetron 4 Mg/2 Ml Vial IV Q8H PRN PRN NAUSEA/VOMITING Sevelamer Carbonate 800 mg 04/09/25 17:00 04/10/25 11:19 Sevelamer Carbonate 800 Mg Tablet PO Not Given TIDCM DEBORAH Sodium Chloride 10 - 40 ml 04/09/25 13:57 04/10/25 09:44 0.9% Saline Lock 10 Ml Syringe IV 10 ml UD PRN Administration SALINE FLUSH PFSH Medical History Diverticulosis ESRD on hemodialysis Ischemic stroke Chronic anemia CVA (cerebral vascular accident) ESRD (end stage renal disease) Symptomatic anemia Carotid stenosis, right ESRD (end stage renal disease) on dialysis Acute anemia Black stool History of transcatheter aortic valve replacement (TAVR) Wears glasses History of steroid therapy History of renal disease Low iron Rheumatoid arthritis Back pain Migraine headache Dietary restriction History of diverticulitis History of ulceration Shortness of breath on exertion Lymphedema History of echocardiogram Cardiology follow-up encounter Hypertension Chronic renal failure Anemia DVT (deep venous thrombosis) End stage renal disease on dialysis Secondary hyperparathyroidism Generalized weakness Acute on chronic anemia Acute upper GI bleed History of end stage renal disease History of renal dialysis Dialysis patient Hepatitis Smoker Bursitis Problem with dialysis access Rectal bleeding Subclavian aneurysm Kidney failure due to vascular disorder Cardiac disease Rheumatoid vasculitis Rheumatoid aortitis Home Medications ?Medication ?Instructions ?Recorded ?Last Taken ?Type cyanocobalamin (vitamin B-12) 1,000 mcg PO DAILY suppl ement 01/12/24 04/09/25 History 1,000 mcg tablet (Vitamin B-12) acetaminophen 500 mg tablet 1,000 mg PO BID PAIN 12/0204/09/25 History carvedilol 12.5 mg tablet 25 mg PO SUMOWEFR High bp 04/09/25 History coenzyme Q10 200 mg capsule (Co 200 mg PO DAILY supple ment 12/02/24 04/09/25 History Q-10) epoetin beta, methoxy peg See Rx Instructions subcut 0 12/02/24 04/08/25 History .COMPLEX PRN low blood counts sevelamer carbonate 800 mg tablet 800 mg PO TIDCM phos phate binder 12/27/24 04/08/25 History ascorbic acid (vitamin C) 500 mg 500 mg PO BID supplem ent #60 tabs 12/29/24 04/08/25 Rx tablet aspirin 81 mg chewable tablet 81 mg PO DINNER heart he alth 01/19/25 04/08/25 History losartan 25 mg tablet 25 mg PO BID heart 02/03/25 04/09/25 History pantoprazole 40 mg tablet,delayed 40 mg PO BID stomach 30 days #60 02/10/25 04/09/25 Rx release (Protonix) tabs heparin (porcine) 5,000 unit/mL 5,000 unit subcut ONCE 02/27/25 04/08/25 History injection solution atorvastatin 40 mg tablet 40 mg PO QHS cholesterol #90 tabs 03/20/25 04/08/25 Rx iron IV .ONCE 03/20/25 04/08/25 H istory psyllium husk 0.4 gram capsule 0.4 g PO DAILY 03/23/25 04/08/25 History (Metamucil) octreotide,microspheres 30 mg 30 mg IM Q4W #1 ea 03/2703/28/25 Rx intramuscular susp, extended release (Sandostatin [place]) cholecalciferol (vitamin D3) 125 125 mcg PO TUTHSA 12/0304/08/25 History mcg (5,000 unit) capsule cinacalcet 90 mg tablet (Sensipar) 90 mg PO TUTHSA 12/0304/08/25 History vitamin B complex-vitamin C-folic 1 tab PO SUMOWEFR 04/08/25 History acid 0.8 mg tablet (Dialyvite 800) Allergy/AdvReac Type Severity Reaction Status Date / Time No Known Allergies Allergy Verified 04/09/25 10:12 Family History Father Heart disease Atrial fibrillation Mother , 88 Heart disease Myocardial infarction Brother Heart disease Myocardial infarction Surgical History History of cardiac catheterization Hx of colonoscopy with polypectomy History of esophagogastroduodenoscopy (EGD) Hx of arteriovenostomy for renal dialysis (~12/2019) Status post insertion of dialysis catheter (~11/2019) History of umbilical hernia s/p subclavian graft S/P knee surgery History of bicuspid aortic valve Social History adopted: No household members: spouse housing: house number of children: 2 current occupational status: retired pets and animals: No sexually active: No Smoking Status: Light Smoker (<10/day) Tobacco: How many years used: 40 quit status: has quit before alcohol intake: never substance use type: does not use caffeine: Yes (2) Type: coffee what type of physical activity do you participate in: aerobics and other details: leg excercises frequency: 3-4 times per week do you feel safe at home: Yes Review of Systems (Anesthesia) ROS Narrative System reviewed and no additional complaints, except as documented. Physical Exam Const alert, oriented x3 and average body habitus Resp normal respiratory effort, normal air movement and clear to auscultation bilaterally Cardio Rhythm: abnormal rhythm irregularly irregular
--- NOTE | 2025-04-10 14:13 | OP.CCLET_ITS ---
04/10/2025 Pavithra Henning Md Re : Upper GI endoscopy procedure for Barry Joe Dear Juvencio This procedure was performed on Thursday, April 10, 2025. My impressions and recommendations are as follows: Impressions : - Grade I esophageal varices with no stigmata of recent bleeding. - Erythematous mucosa in the stomach. - Portal hypertensive gastropathy. 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 Treated with a heater probe. - No gross lesions in the entire examined duodenum. - No specimens collected. Recommendations : - [facility] to [facility] care. - Resume regular diet. - Continue present medications. My findings are described in the full procedure note, which is enclosed. If I can be of further assistance, please feel free to contact me at . Sincerely, Cade Ross, 04/10/2025 2:12:34 PM This report has been signed electronically.
--- NOTE | 2025-04-10 14:13 | OP.EGD_ITS ---
Patient Name: Barry Joe Procedure Date: 04/10/2025 1:50 PM Date of : 1955 Age: 69 Procedure: Upper GI endoscopy Indications: Iron deficiency anemia, Recent gastrointestinal bleeding, Gastrointestinal bleeding of unknown origin Providers: Cade Ross DO Referring MD: Danny Wilkes Do Medicines: Monitored Anesthesia Care Patient Profile: This is a 69 year old male. Refer to note in patient chart for documentation of history and physical. Patient has symptoms. Complications: No immediate complications. Procedure: Pre-Anesthesia Assessment: - Prior to the procedure, a History and Physical was performed, and patient medications and allergies were reviewed. The patient is competent. The risks and benefits of the procedure and the sedation options and risks were discussed with the patient. All questions were answered and informed consent was obtained. Patient identification and proposed procedure were verified by the physician in the pre-procedure area. Mental Status Examination: alert and oriented. Airway Examination: normal oropharyngeal airway and neck mobility. Respiratory Examination: clear to auscultation. CV Examination: normal. Prophylactic Antibiotics: The patient does not require prophylactic antibiotics. Prior Anticoagulants: The patient has taken no anticoagulant or antiplatelet agents except for aspirin. ASA Grade Assessment: III - A patient with severe systemic disease. After reviewing the risks and benefits, the patient was deemed in satisfactory condition to undergo the procedure. The anesthesia plan was to use monitored anesthesia care (MAC). Immediately prior to administration of medications, the patient was re-assessed for adequacy to receive sedatives. The heart rate, respiratory rate, oxygen saturations, blood pressure, adequacy of pulmonary ventilation, and response to care were monitored throughout the procedure. The physical status of the patient was re-assessed after the procedure. After obtaining informed consent, the endoscope was passed under direct vision. Throughout the procedure, the patient's blood pressure, pulse, and oxygen saturations were monitored continuously. The Colonoscope was introduced through the mouth, and advanced to the fourth part of the duodenum. Small bowel enteroscopy was deemed necessary. The upper GI endoscopy was accomplished without difficulty. The patient tolerated the procedure well. Scope In: 1:59:50 PM Scope Out: 2:05:10 PM Total Procedure Duration Time 0 hours 5 minutes 20 seconds Findings: One column of grade I varices with no stigmata of recent bleeding were found in the lower third of the esophagus, 39 cm from the incisors. No red holly signs were present. Patchy mildly erythematous mucosa without bleeding was found in the stomach. Mild portal hypertensive gastropathy was found in the entire examined stomach. Two 5 mm angiodysplastic lesions with bleeding were found at the pylorus. Coagulation for hemostasis using heater probe was successful. Estimated blood loss was minimal. No gross lesions were noted in the entire examined duodenum. Impression: - Grade I esophageal varices with no stigmata of recent bleeding. - Erythematous mucosa in the stomach. - Portal hypertensive gastropathy. 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 Treated with a heater probe. - No gross lesions in the entire examined duodenum. - No specimens collected. Recommendation: - Return patient to [facility] care. - Resume regular diet. - Continue present medications. Procedure Code(s): --- Professional --- 14433, Small intestinal endoscopy, enteroscopy beyond second portion of duodenum, not including ileum; with control of bleeding (eg, injection, bipolar cautery, unipolar cautery, laser, heater probe, stapler, plasma ash handler) CPT copyright 2021 [employer]. All rights reserved. The codes documented in this report are preliminary and upon plasma center technician review may be revised to meet current compliance requirements. Cade Ross DO 04/10/2025 2:12:34 PM This report has been signed electronically. Number of Addenda: 0 Note Initiated On: 04/10/2025 1:50 PM
--- NOTE | 2025-04-10 14:19 | PCM.POST.ANE ---
Anesthesia: Postop Eval I Current Vital Signs Temperature: 97.6 F Pulse Rate: 102 Blood Pressure: 82/63 Respiratory Rate: 16 Pulse Ox: 97 Oxygen Delivery Method: Nasal Cannula Oxygen Flow Rate (L/min): 3 Assessment Airway patent: Yes Spontaneous unlabored respirations: Yes Mental status: Awake and Calm nausea: No Vomiting: No Anesthesia Complication: No Fluid Hydration Crystalloid volume administer (ml): 100 Total IV fluid infused: 100 Progress Note Anesthesia document: Postop Eval 1 completed: Yes
--- NOTE | 2025-04-10 14:58 | CHAPLAIN ---
Type of Pastoral Visit ___ Initial Visit ___ Follow-up Visit ___ On-call Visit ___ General Patient Visit ___ Spiritual Assessment ___ Family Conference ___ Bereavement ___ Rapid Response ___ Code Blue ___ Other (describe below) Pastoral Care Referral From ___ Patient ___ Family ___ Nurse ___ Physician ___ Business Systems Technician ___ Autocutter ___ Other (describe below) Sacrament/Intervention ___ Active listening ___ Anointing ___ Caodaism ___ Bereavement ___ Communion ___ Mee exploration ___ ___ Life review ___ Prayer ___ Reconciliation ___ Sacrament of Sick ___ Supportive presence ___ Wedding ___ Other (describe below) Pastoral Comments patient and bed are out of the room; left a calling card
--- NOTE | 2025-04-10 16:07 | POSTOPAN2_ITS ---
Anesthesia Postop Eval I Sum Postop Eval Completion status Anesthesia document: Postop Eval 1 completed: Yes Anesthesia Postop Eval I Summary Anesthesia Postop Eval I Summary: Anesthesia Postop Eval I: Assessment Summary Airway patent Yes 04/10/25 14:20 SPEECH AND HEARING CLINIC DIRECTOR.SOBR Spontaneous unlabored Yes 04/10/25 14:20 SPEECH AND HEARING CLINIC DIRECTOR.SOBR respirations Mental status Awake,Calm 04/10/25 14:20 SPEECH AND HEARING CLINIC DIRECTOR.SOBR nausea No 04/10/25 14:20 SPEECH AND HEARING CLINIC DIRECTOR.SOBR Vomiting No 04/10/25 14:20 SPEECH AND HEARING CLINIC DIRECTOR.SOBR Anesthesia Postop Eval I: Fluid Summary Crystalloid volume administer 100 04/10/25 14:20 SPEECH AND HEARING CLINIC DIRECTOR.SOBR (ml) Colloids volume administered ( ml) Blood Product volume administered (ml) Total IV fluid infused 100 04/10/25 14:20 SPEECH AND HEARING CLINIC DIRECTOR.SOBR Anesthesia Postop Eval I: Summary Notes Anesthesia Complication No 04/10/25 14:20 SPEECH AND HEARING CLINIC DIRECTOR.SOBR Anesthesia Complication Comment: Post-operative progress note Anesthesia: Postop Eval II Evaluation Mental status: Awake Pain Level: 0 nausea: No Vomiting: No Complications Anesthesia Complication: No
--- NOTE | 2025-04-10 16:07 | PCM.POSTANE2 ---
Anesthesia Postop Eval I Sum Postop Eval Completion status Anesthesia document: Postop Eval 1 completed: Yes Anesthesia Postop Eval I Summary Anesthesia Postop Eval I Summary: Anesthesia Postop Eval I: Assessment Summary Airway patent Yes 04/10/25 14:20 PIGMENT AND LACQUER MIXER.SOBR Spontaneous unlabored Yes 04/10/25 14:20 PIGMENT AND LACQUER MIXER.SOBR respirations Mental status Awake,Calm 04/10/25 14:20 PIGMENT AND LACQUER MIXER.SOBR nausea No 04/10/25 14:20 PIGMENT AND LACQUER MIXER.SOBR Vomiting No 04/10/25 14:20 PIGMENT AND LACQUER MIXER.SOBR Anesthesia Postop Eval I: Fluid Summary Crystalloid volume administer 100 04/10/25 14:20 PIGMENT AND LACQUER MIXER.SOBR (ml) Colloids volume administered ( ml) Blood Product volume administered (ml) Total IV fluid infused 100 04/10/25 14:20 PIGMENT AND LACQUER MIXER.SOBR Anesthesia Postop Eval I: Summary Notes Anesthesia Complication No 04/10/25 14:20 PIGMENT AND LACQUER MIXER.SOBR Anesthesia Complication Comment: Post-operative progress note Anesthesia: Postop Eval II Evaluation Mental status: Awake Pain Level: 0 nausea: No Vomiting: No Complications Anesthesia Complication: No
[2025-04-10] MEDS: SEVELAMER CARBONATE 800 MG TABLET PO (17:35)
[2025-04-10] MEDS: Atorvastatin Calcium 40 MG Tablet PO (20:37)
[2025-04-11] VITALS (26 sets, daily range): BP systolic 73–188; BP diastolic 60–94; PULSE 100–127; RESP 14–18; TEMP 36.6–37.3; O2SAT 93–100; BMI 26.8; BMI 26.5
--- NOTE | 2025-04-11 00:43 | PCM.HOSP.N ---
Hospitalist Note Patient with hypotension, 73/60, on regimen for PAF RVR, will administer small 250 cc bolus and reassess. ESRD on HD per records review. Also GI bleed history with GI following thus will request HH also to be cautious.
[2025-04-11] MEDS: 0.9% Normal Saline (250mL Bag) 250 ML 999 ML IV ×2 (01:33→02:50)
[2025-04-11 01:36] LABS: Hematocrit 26.7 % (40-54); Hemoglobin 8.6 g/dL (13.0-16.5)
[2025-04-11] MEDS: Midodrine HCl 5 MG Tablet 10 MG PO ×3 (02:46→22:23)
[2025-04-11 05:45] LABS: Absolute Lymphocyte Count 0.73 X10^3/uL (0.83-4.51); Absolute Neutrophil Count 7.7 X10^3/uL (2.0-7.7); Basophil# 0.03 X10^3/uL; Basophil% 0.3 % (0-1); Eosinophil# 0.13 X10^3/uL; Eosinophils% 1.4 % (0-5); Hematocrit 27.9 % (40-54); Hemoglobin 8.8 g/dL (13.0-16.5); Lymphocyte # 0.73 X10^3/ul (0.83-4.51); Lymphocyte % 7.7 % (19-41); Mean Corp Hgb Conc 31.5 g/dL (32-36); Mean Corpuscular Hgb 30.6 pg (27.0-32.0); Mean Corpuscular Volume 96.9 fL (80-94); Mean Platelet Vol. 12.3 fl (6.2-12.0); Monocyte% 9.5 % (0-10); NRBC Flagged by Analyzer 0 % (0-5); Neutrophil # 7.68 X10^3/uL (2.7-7.7); Neutrophil % 80.8 % (47-70); Platelet Count 174 K/mm3 (150-450); RBC Distribution Width CV 18.2 % (11.6-14.6); RBC Distribution Width SD 62.9 fl (35.1-43.9); Red Blood Count 2.88 M/mm3 (4.6-6.2); White Blood Count 9.5 K/mm3 (4.4-11.0)
[2025-04-11 06:28] LABS: Anion Gap 17 (5-15); BUN 45 mg/dL (4-19); BUN/Creat Ratio 6.3 RATIO (10-20); Calcium,Total 8.3 mg/dL (7.6-11.0); Chloride 95 mmol/L (98-108); EST Glomerular Filtration Rate 8 (>60); Estimated Creatinine Clearance 10.14 ml/min (50-250); Glucose 117 mg/dL (70-99); Potassium 3.8 mmol/L (3.3-5.1); Sodium Level 136 mmol/L (133-145)
--- NOTE | 2025-04-11 07:47 | PCM.PN.HOSP ---
Reason for Visit Reason for Visit: Diagnoses Anemia, unspecified (04/09/25) Unspecified atrial fibrillation (04/09/25) Gastrointestinal hemorrhage, unspecified (04/09/25) Subjective Subjective Hypotensive overnight, requiring midodrine. Received midodrine and IVF with HD today. Objective Data Objective Data Vital Signs: Vital Signs Temp Pulse Resp BP Pulse Ox O2 Del Method O2 Flow Rate 36.9 C 115 H 18 80/60 L 95 Room Air 3 04/11/25 06:13 04/11/25 06:13 04/11/25 06:13 04/11/25 06:13 04/11/25 06:13 04/11/25 06:13 04/10/25 14:20 Oxygen Flow Rate (L/min) 3 Oxygen Delivery Method Room Air Weight: 85 kg Body Mass Index (BMI) 26.9 Intake & Output: Intake and Output for Last 24 Hours 04/09/25 04/10/25 04/11/25 23:59 23:59 23:59 Intake Total 1637.33 / 1637.33 903.50 / 903.50 500 / 500 Balance 1637.33 / 1637.33 903.50 / 903.50 500 / 500 Lab / Micro Data 04/11/25 05:13 04/11/25 05:13 Labs: Laboratory Results - last 24 hr 04/11/25 01:18: Hgb 8.6 L, Hct 26.7 L 04/11/25 05:13: WBC 9.5, RBC 2.88 L, Hgb 8.8 L, Hct 27.9 L, MCV 96.9 H, MCH 30.6, MCHC 31.5 L, RDW Std Deviation 62.9 H, RDW Coeff of Brynn 18.2 H, Plt Count 174, MPV 12.3 H, Immature Gran % (Auto) 0.300, Neut % (Auto) 80.8 H, Lymph % (Auto) 7.7 L, [place] % (Auto) 9.5, Eos % (Auto) 1.4, Baso % (Auto) 0.3, Absolute Neuts (auto) 7.7, Absolute Lymphs (auto) 0.73 L, Nucleated RBC % 0, Sodium 136, Potassium 3.8, Chloride 95 L, Carbon Dioxide 24.0, Anion Gap 17 H, BUN 45 H, Creatinine 7.10 H, Estim Creat Clear Calc 10.14 L, Est GFR (MDRD) Non-Af 8 L, BUN/Creatinine Ratio 6.3 L, Glucose 117 H, Calcium 8.3 Rhythm Strip Rhythm Strip: A-fib Rate: 116 Ectopy: None Physical Exam Const alert and no apparent distress HEENT head/scalp atraumatic and moist oral mucous membranes Resp normal respiratory effort, no retractions, no use of accessory muscles and clear to auscultation bilaterally Cardio Cardio Narrative: irregularly irregular. GI normal to inspection, nondistended, normoactive bowel sounds, soft to palpation, non-tender and non-distended Extremity General Extremity: edema bilateral lower extremity Details: mild Assessment & Plan Assessment/Plan (1) Recurrent gastrointestinal hemorrhage: PLAN: Recurrent GI bleed with acute on chronic anemia Admit under inpatient status to PCU. Has history of recurrent lower GI bleeds due to angiodysplasias; presented with 3-day history of dark stools EGD on 04/10 showed grade I esophageal varices w no stigmata of recent bleeding. Erythematous mucosa in the stomach. Portal hypertensive gastropathy. 2 bleeding angiodysplastic lesions in the stomach, treated w heater probe. (2) Acute on chronic anemia: PLAN: s/p transfusion of PRBCs. Improved after 2 units PRBCs. (3) Atrial fibrillation, new onset: PLAN: new onset A-fib with RVR Follows with outpatient cardiology. Still in afib. DW Dr. 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 At home his carvedilol is 25 QSuMoWeFr, he recommeded changing it to 6.25 BID daily. Since patient already received his 25 of carvedilol today, will start the changed dosing on 04/11. Discussed with Dr. Palomo on 04/11, he will now be formally consulted. He recommended DC carvedilol given the hypotension and start amiodarone 400 BID. (4) Hypotension: PLAN: was this AM before dialysis. Did receive midodrine. check cortisol (5) Elevated troponin: PLAN: chronically elevated. Likely demand ischemic from anemia and skewed given CKD on HD. PLAN: Plan Chronic conditions: ESRD on HD? Nephrology consulted. On HD Thursday. Last HD session on day prior to admission. Appreciate nephrology recommendations. Recent CVA with right carotid artery stenosis, hypertension, hyperlipidemia, history of bicuspid aortic valve s/p TAVR? Recent hospitalization in early January for acute CVA. Was found to have severe right-sided carotid artery stenosis. Vascular surgery followed and noted that his severe anemia was likely contributing to the severe findings on carotid ultrasound and it was felt this was not the source of his stroke. Was suspected by neurology to be an ischemic stroke. Patient did not wear heart monitor to evaluate for A-fib. Continue home aspirin, statin, and Coreg. Holding home losartan in setting of mild hypotension on admission, resume as able. DVT prophylaxis: Bri SIMMONS patient's at bedside. Charges/Coding Visit Charges Inpatient E&M: 49458 Subs Hosp L2
[2025-04-11] MEDS: PureFlow B 2K Dialysis Soln 1 BAG 6 BAG PF (09:05)
[2025-04-11] MEDS: 0.9% Normal Saline 1,000 ML IV.SOLN. 1000 ML OPERA.SITE (09:15)
--- NOTE | 2025-04-11 10:26 | PCM.CONS.R ---
Assessment & Plan Assessment/Plan (1) ESRD (end stage renal disease) on dialysis: (2) Recurrent gastrointestinal hemorrhage: (3) Atrial fibrillation, new onset: PLAN: Plan Patient has history of ESRD on hemodialysis Thursday schedule last dialyzed Thursday at the kidney center. Patient will undergo hemodialysis today. Blood pressure is on the low side therefore minimal ultrafiltration with dialysis today. Patient is near EDW. Lungs sound clear and is on room air, no edema. Patient is on carvedilol 6.25 mg twice daily, a.m. dose held this morning because of dialysis. Patient has been seen by GI, he is known to their service as he has history of recurrent small bowel bleed secondary to angiodysplasia. Patient underwent EGD yesterday found to have 2 bleeding angiodysplastic lesions treated with heater probe. Patient did receive PRBC on admission, hemoglobin is 8.8 today. While in hospital we will maintain Thursday dialysis schedule. Further orders forthcoming as hospitalization evolves. HPI Consult Data Date of Consult: 04/11/25 HPI Narrative HPI Narrative: IBNDU DUMONT, is a 69 M with past medical history significant for ESRD on hemodialysis Thursday schedule, last dialyzed Thursday who presented to emergency room with concerns for recurrent GI bleed, noticing darker stools. Hemoglobin was 7.2 on admit, in ER patient patient was found to be in new onset A-fib with RVR and was admitted for further evaluation and treatment. Nephrology consult in view of history of ESRD and for dialysis management. Patient last dialyzed at his kidney center on Thursday. He is dialyzing today. Denies any chest pain or shortness of breath. [facility] Medical History (Updated 04/11/25 @ 10:30 by HELEN Ga) ESRD (end stage renal disease) on dialysis Diverticulosis ESRD on hemodialysis Ischemic stroke Chronic anemia CVA (cerebral vascular accident) ESRD (end stage renal disease) Symptomatic anemia Carotid stenosis, right Acute anemia Black stool History of transcatheter aortic valve replacement (TAVR) Wears glasses History of steroid therapy History of renal disease Low iron Rheumatoid arthritis Back pain Migraine headache Dietary restriction History of diverticulitis History of ulceration Shortness of breath on exertion Lymphedema History of echocardiogram Cardiology follow-up encounter Hypertension Chronic renal failure Anemia DVT (deep venous thrombosis) End stage renal disease on dialysis Secondary hyperparathyroidism Generalized weakness Acute on chronic anemia Acute upper GI bleed History of end stage renal disease History of renal dialysis Dialysis patient Hepatitis Smoker Bursitis Problem with dialysis access Rectal bleeding Subclavian aneurysm Kidney failure due to vascular disorder Cardiac disease Rheumatoid vasculitis Rheumatoid aortitis Home Medications ?Medication ?Instructions ?Recorded ?Last Taken ?Type cyanocobalamin (vitamin B-12) 1,000 mcg PO DAILY supplement 01/12/24 04/09/25 History 1,000 mcg tablet (Vitamin B-12) acetaminophen 500 mg tablet 1,000 mg PO BID PAIN 12/02/24 04/09/25 History coenzyme Q10 200 mg capsule (Co 200 mg PO DAILY supplement 12/02/24 04/09/25 History Q-10) epoetin beta, methoxy peg See Rx Instructions subcut 12/02/24 04/08/25 History .COMPLEX PRN low blood counts sevelamer carbonate 800 mg tablet 800 mg PO TIDCM phosphate binder 12/27/24 04/08/25 History ascorbic acid (vitamin C) 500 mg 500 mg PO BID supplement #60 tabs 12/29/24 04/08/25 Rx tablet aspirin 81 mg chewable tablet 81 mg PO DINNER [employer] health 01/19/25 04/08/25 History losartan 25 mg tablet 25 mg PO BID heart 02/03/25 04/09/25 History pantoprazole 40 mg tablet,delayed 40 mg PO BID stomach 30 days #60 02/10/25 04/09/25 Rx release (Protonix) tabs heparin (porcine) 5,000 unit/mL 5,000 unit subcut ONCE 02/27/25 04/08/25 History injection solution atorvastatin 40 mg tablet 40 mg PO QHS cholesterol #90 tabs 03/20/25 04/08/25 Rx iron IV .ONCE 03/20/25 04/08/25 History psyllium husk 0.4 gram capsule 0.4 g PO DAILY 03/23/25 04/08/25 History (Metamucil) octreotide,microspheres 30 mg 30 mg IM Q4W #1 ea 03/27/25 03/28/25 Rx intramuscular susp, extended release (Sandostatin [place]) cholecalciferol (vitamin D3) 125 125 mcg PO TUTHSA 04/09/25 04/08/25 History mcg (5,000 unit) capsule cinacalcet 90 mg tablet (Sensipar) 90 mg PO TUTHSA 04/09/25 04/08/25 History vitamin B complex-vitamin C-folic 1 tab PO SUMOWEFR 04/09/25 04/08/25 History acid 0.8 mg tablet (Dialyvite 800) carvedilol 12.5 mg tablet 12.5 mg PO SUMOWEFR High bp 04/10/25 Unknown History Allergy/AdvReac Type Severity Reaction Status Date / Time No Known Allergies Allergy Verified 04/09/25 10:12 Family History Father Heart disease Atrial fibrillation Mother , 88 Heart disease Myocardial infarction Brother Heart disease Myocardial infarction Surgical History History of cardiac catheterization Hx of colonoscopy with polypectomy History of esophagogastroduodenoscopy (EGD) Hx of arteriovenostomy for renal dialysis (~12/2019) Status post insertion of dialysis catheter (~11/2019) History of umbilical hernia s/p subclavian graft S/P knee surgery History of bicuspid aortic valve Social History adopted: No household members: spouse housing: house number of children: 2 current occupational status: retired pets and animals: No sexually active: No Smoking Status: Light Smoker (<10/day) Tobacco: How many years used: 40 quit status: has quit before alcohol intake: never substance use type: does not use caffeine: Yes (2) Type: coffee what type of physical activity do you participate in: aerobics and other details: leg excercises frequency: 3-4 times per week do you feel safe at home: Yes ROS ROS Narrative As in HPI Physical Exam Narrative Alert and oriented x 3, no apparent stress S1, S2, rhythm irregular, heart rate low 100s Lungs sound clear Abdomen soft No edema AV fistula accessed for hemodialysis Lab / Micro Data 04/11/25 05:13 04/11/25 05:13 Labs: Laboratory Results - last 24 hr 04/11/25 01:18: Hgb 8.6 L, Hct 26.7 L 04/11/25 05:13: WBC 9.5, RBC 2.88 L, Hgb 8.8 L, Hct 27.9 L, MCV 96.9 H, MCH 30.6, MCHC 31.5 L, RDW Std Deviation 62.9 H, RDW Coeff of Brynn 18.2 H, Plt Count 174, MPV 12.3 H, Immature Gran % (Auto) 0.300, Neut % (Auto) 80.8 H, Lymph % (Auto) 7.7 L, [place] % (Auto) 9.5, Eos % (Auto) 1.4, Baso % (Auto) 0.3, Absolute Neuts (auto) 7.7, Absolute Lymphs (auto) 0.73 L, Nucleated RBC % 0, Sodium 136, Potassium 3.8, Chloride 95 L, Carbon Dioxide 24.0, Anion Gap 17 H, BUN 45 H, Creatinine 7.10 H, Estim Creat Clear Calc 10.14 L, Est GFR (MDRD) Non-Af 8 L, BUN/Creatinine Ratio 6.3 L, Glucose 117 H, Calcium 8.3 Rhythm Strip Rhythm Strip: A-fib Rate: 116 Ectopy: None
[2025-04-11] MEDS: Cholecalciferol (Vit D3) 125 MCG CAPSULE (5,000 UNITS) PO (12:40)
[2025-04-11] MEDS: Acetaminophen 500 MG Tablet 1000 MG PO ×2 (12:40→22:24)
[2025-04-11] MEDS: Amiodarone 200 MG Tablet 400 MG PO ×2 (12:41→18:19)
[2025-04-11] MEDS: SEVELAMER CARBONATE 800 MG TABLET PO ×2 (12:42→17:04)
[2025-04-11] MEDS: Cyanocobalamin 500 MCG Tablet 1000 MCG PO (12:42)
[2025-04-11] MEDS: 0.9% Saline Lock 10 ML Syringe IV (12:43)
[2025-04-11] MEDS: Pantoprazole Sodium 40 MG in 0.9% Normal Saline (100mL MB+) 100 ML 330 MG IV ×2 (12:43→22:24)
--- NOTE | 2025-04-11 12:59 | PCM.CONS.C ---
Assessment & Plan Assessment/Plan (1) Atrial fibrillation, new onset: PLAN: Patient was newly diagnosed with atrial fibrillation April 08, 2025. He does report some episodic heartburn. This last 5 minutes or less and resolve spontaneously and does not occur with activity. This may be his atrial fibrillation as it started on Thursday as well. The patient's heart rate has been difficult to control with his Coreg. He is not a candidate for oral anticoagulation therapy due to recurrent GI bleeds. He has angiodysplasia. At this point in time given his hypotension we will try to use amiodarone to control his heart rate it is possible he will spontaneously convert to sinus rhythm I did explain this in detail with the patient and his that there is a risk of stroke with atrial fibrillation and they are well aware. They are also well aware of the extremely high risk of recurrent GI bleeding. He has had the undergo multiple treatments for his angiodysplasia in the recent months. Long-term plan would be to place the patient on amiodarone p.o. loading, 400 mg twice daily, when discharged to drop it to 200 mg twice daily, after 4 weeks we will reevaluate the patient in the office if he remains in atrial fibrillation would consider bringing him to the hospital for transesophageal echocardiogram guided direct-current cardioversion. The reason for utilizing the JUANCARLOS is were not able to anticoagulate him and if his symptoms continue to persist and we cannot control his rate that may be the only option. I discussed this plan in detail with the patient and his they voiced understanding. (2) Acute upper gastrointestinal bleeding: PLAN: Patient had noted dark tarry stools and presented to the emergency department on Thursday subsequently underwent endoscopy and treatment of a single dysplastic area. He has also been transfused 2 units of packed cells. Hemoglobin today was 8.8. (3) Arteriosclerotic cardiovascular disease: PLAN: Patient has a history of significant circumflex disease that we have not been able to intervene upon he does not have any significant angina at this point in time. I do not feel that placement of a stent in this vessel would be of benefit and would definitely expose him to increased bleeding risk. (4) ESRD (end stage renal disease) on dialysis: PLAN: Patient is dialyzed 3 days a week. Historically he has had to hold his vasoactive medications for his heart failure during dialysis due to hypotension. There is going to be a trial of adding Midrin to his medical regiment to keep his blood pressure up to help with dialysis. (5) Hypotension: QUALIFIERS: Hypotension type: unspecified hypotension type Qualified Code(s): I95.9 - Hypotension, unspecified PLAN: Patient has had issues with dialysis for several months with blood pressure drops. We have altered his medical regiment but now he is persistently having low blood pressures. Will discontinue his Coreg and placed him on amiodarone for beta-ivelisse effect and control of his rate. Losartan will be continued but if he continues to have issues with blood pressure we will have to discontinue that as well. The primary service may implement Midrin. (6) HFrEF (heart failure with reduced ejection fraction): PLAN: Patient carries a history of an ejection fraction in the 25% range. Up until recently the patient has been well compensated in his home environment on low-dose Coreg and losartan. His volume status has been controlled with hemodialysis. Using his atrial kick is probably dropping his cardiac output and therefore we need to control his heart rate as best as possible, keep his hemoglobin above 8, but I am concerned due to the fact we are not able to anticoagulate him about a possible TIA/CVA related to his atrial fibrillation. PLAN: Plan 1. Will discontinue Coreg. 2. Amiodarone 400 g twice daily for 5 days or until discharge and then 200 mg twice daily at discharge. 3. Cardiology will follow along with you for further cardiovascular management. HPI Consult Data Date of Consult: 04/11/25 HPI Narrative Reason for Consultation: New onset atrial fibrillation. HPI Narrative: BINDU DUMONT, is a 69 M who presents with a history of recurrent GI bleeds due to angiodysplasia. On presentation the patient was noted to be profoundly anemic and in atrial fibrillation. He had no prior history of atrial fibrillation. The patient's rate has been difficult to control he has been intolerant of metoprolol of any significant dosing and only gets his carvedilol on nondialysis days. He has difficulty with hypotension during dialysis. The patient was scoped and found 1 area of angiodysplasia which was treated with cautery. He also was transfused 2 units of packed red cells. His heart rate remains elevated despite altering his Coreg dosing to lower the dose and give it every day. The patient has recurrent multiple GI bleeds. We have been unable to put him on anything more than a baby aspirin a day. The patient does have a history of aortic stenosis status post TAVR. He also has known coronary disease with a nonrevascularized circumflex lesion. This was found during his TAVR evaluation but no stent was deployed at that time and subsequently he has had multiple GI bleeds preempting any ability to place him on dual antiplatelet therapy. The patient does complain of some heartburn but this started on Thursday when he came to the hospital and is probably the atrial fibrillation. He has previously been free of any angina even with low hemoglobins despite his circumflex lesion. His other coronaries had no significant disease. The patient's heart rate remains elevated in the 120 bpm range. He remains in atrial fibrillation. His hemoglobin has improved up to 8.8 today. Past echocardiogram September 2024 showed that his prior bioprosthetic arctic valve had a mean gradient of 20 mmHg. His LV ejection fraction was estimated at 25%. The patient has been on losartan and Coreg but has been difficult to titrate due to his hypotension during dialysis. [facility] Medical History ESRD (end stage renal disease) on dialysis Diverticulosis ESRD on hemodialysis Ischemic stroke Chronic anemia CVA (cerebral vascular accident) ESRD (end stage renal disease) Symptomatic anemia Carotid stenosis, right Acute anemia Black stool History of transcatheter aortic valve replacement (TAVR) Wears glasses History of steroid therapy History of renal disease Low iron Rheumatoid arthritis Back pain Migraine headache Dietary restriction History of diverticulitis History of ulceration Shortness of breath on exertion Lymphedema History of echocardiogram Cardiology follow-up encounter Hypertension Chronic renal failure Anemia DVT (deep venous thrombosis) End stage renal disease on dialysis Secondary hyperparathyroidism Generalized weakness Acute on chronic anemia Acute upper GI bleed History of end stage renal disease History of renal dialysis Dialysis patient Hepatitis Smoker Bursitis Problem with dialysis access Rectal bleeding Subclavian aneurysm Kidney failure due to vascular disorder Cardiac disease Rheumatoid vasculitis Rheumatoid aortitis Home Medications ?Medication ?Instructions ?Recorded ?Last Taken ?Type cyanocobalamin (vitamin B-12) 1,000 mcg PO DAILY supplement 01/12/24 04/09/25 History 1,000 mcg tablet (Vitamin B-12) acetaminophen 500 mg tablet 1,000 mg PO BID PAIN 12/02/24 04/09/25 History coenzyme Q10 200 mg capsule (Co 200 mg PO DAILY supplement 12/02/24 04/09/25 History Q-10) epoetin beta, methoxy peg See Rx Instructions subcut 12/02/24 04/08/25 History .COMPLEX PRN low blood counts sevelamer carbonate 800 mg tablet 800 mg PO TIDCM phosphate binder 12/27/24 04/08/25 History ascorbic acid (vitamin C) 500 mg 500 mg PO BID supplement #60 tabs 12/29/24 04/08/25 Rx tablet aspirin 81 mg chewable tablet 81 mg PO DINNER heart health 01/19/25 04/08/25 History losartan 25 mg tablet 25 mg PO BID heart 02/03/25 04/09/25 History pantoprazole 40 mg tablet,delayed 40 mg PO BID stomach 30 days #60 02/10/25 04/09/25 Rx release (Protonix) tabs heparin (porcine) 5,000 unit/mL 5,000 unit subcut ONCE 02/27/25 04/08/25 History injection solution atorvastatin 40 mg tablet 40 mg PO QHS cholesterol #90 tabs 03/20/25 04/08/25 Rx iron IV .ONCE 03/20/25 04/08/25 History psyllium husk 0.4 gram capsule 0.4 g PO DAILY 03/23/25 04/08/25 History (Metamucil) octreotide,microspheres 30 mg 30 mg IM Q4W #1 ea 03/27/25 03/28/25 Rx intramuscular susp, extended release (Sandostatin [place]) cholecalciferol (vitamin D3) 125 125 mcg PO TUTHSA 04/09/25 04/08/25 History mcg (5,000 unit) capsule cinacalcet 90 mg tablet (Sensipar) 90 mg PO TUTHSA 04/09/25 04/08/25 History vitamin B complex-vitamin C-folic 1 tab PO SUMOWEFR 04/09/25 04/08/25 History acid 0.8 mg tablet (Dialyvite 800) carvedilol 12.5 mg tablet 12.5 mg PO SUMOWEFR High bp 04/10/25 Unknown History Allergy/AdvReac Type Severity Reaction Status Date / Time No Known Allergies Allergy Verified 04/09/25 10:12 Family History Father Heart disease Atrial fibrillation Mother , 88 Heart disease Myocardial infarction Brother Heart disease Myocardial infarction Surgical History History of cardiac catheterization Hx of colonoscopy with polypectomy History of esophagogastroduodenoscopy (EGD) Hx of arteriovenostomy for renal dialysis (~12/2019) Status post insertion of dialysis catheter (~11/2019) History of umbilical hernia s/p subclavian graft S/P knee surgery History of bicuspid aortic valve Social History adopted: No household members: spouse housing: house number of children: 2 current occupational status: retired pets and animals: No sexually active: No Smoking Status: Light Smoker (<10/day) Tobacco: How many years used: 40 quit status: has quit before alcohol intake: never substance use type: does not use caffeine: Yes (2) Type: coffee what type of physical activity do you participate in: aerobics and other details: leg excercises frequency: 3-4 times per week do you feel safe at home: Yes ROS Constitutional Constitutional: Reports as per HPI Eyes Eyes: Reports systems reviewed and no addt'l complaints, except as documented ENT HEENT: Reports systems reviewed and no addt'l complaints, except as documented Cardiovascular Cardiovascular: Reports as per HPI Respiratory/Chest Respiratory/Chest: Reports as per HPI Gastrointestinal Gastrointestinal: Reports as per HPI Genitourinary Genitourinary: Reports as per HPI Musculoskeletal Musculoskeletal: Reports systems reviewed and no addt'l complaints, except as documented Integumentary Integumentary: Reports systems reviewed and no addt'l complaints, except as documented Neurologic Neurologic: Reports systems reviewed and no addt'l complaints, except as documented Psychiatric Psychiatric: Reports systems reviewed and no addt'l complaints, except as documented Endocrine Endocrinology: Reports systems reviewed and no addt'l complaints, except as documented Hematologic/Lymphatic Hematologic/Lymphatic: Reports as per HPI Allergic/Immunologic Allergic/Immunologic: Reports systems reviewed and no addt'l complaints, except as documented Physical Exam Const alert and oriented x3 HEENT normocephalic Eyes EOMs intact bilaterally Neck no JVD and no carotid bruits Resp normal respiratory effort and clear to auscultation bilaterally Cardio Rate: tachycardic Rhythm: abnormal rhythm irregularly irregular Heart Sounds: S1 normal, S2 normal and murmur systolic II/ harsh LVOT; Negative for click or gallop Extremity Extremity Narrative: Puffy bilateral ankles. Neuro Neuro Narrative: Alert and oriented x 3 Risk Stratification Risk Stratification Applicable: No Charges/Coding Visit Charges Inpatient E&M: 90189 Init Hosp L3 Objective Data Vital Signs: Vital Signs Temp Pulse Resp BP Pulse Ox O2 Del Method O2 Flow Rate 98.3 F 120 H 16 109/94 H 100 Room Air 3 04/11/25 12:15 04/11/25 12:15 04/11/25 12:15 04/11/25 12:15 04/11/25 12:15 04/11/25 12:15 04/10/25 14:20 Oxygen Flow Rate (L/min) 3 Oxygen Delivery Method Room Air Weight: 185 lb 3.013 oz Body Mass Index (BMI) 26.5 Intake & Output: Intake and Output for Last 24 Hours 04/09/25 04/10/25 04/11/25 23:59 23:59 23:59 Intake Total 1637.33 / 1637.33 903.50 / 903.50 500 / 500 Output Total 1090 / 1090 Balance 1637.33 / 1637.33 903.50 / 903.50 -590 / -590 Lab / Micro Data Attestation: I reviewed the patient's lab results. 04/11/25 05:13 04/11/25 05:13 Labs: Laboratory Results - last 24 hr 04/11/25 01:18: Hgb 8.6 L, Hct 26.7 L 04/11/25 05:13: WBC 9.5, RBC 2.88 L, Hgb 8.8 L, Hct 27.9 L, MCV 96.9 H, MCH 30.6, MCHC 31.5 L, RDW Std Deviation 62.9 H, RDW Coeff of Brynn 18.2 H, Plt Count 174, MPV 12.3 H, Immature Gran % (Auto) 0.300, Neut % (Auto) 80.8 H, Lymph % (Auto) 7.7 L, [place] % (Auto) 9.5, Eos % (Auto) 1.4, Baso % (Auto) 0.3, Absolute Neuts (auto) 7.7, Absolute Lymphs (auto) 0.73 L, Nucleated RBC % 0, Sodium 136, Potassium 3.8, Chloride 95 L, Carbon Dioxide 24.0, Anion Gap 17 H, BUN 45 H, Creatinine 7.10 H, Estim Creat Clear Calc 10.14 L, Est GFR (MDRD) Non-Af 8 L, BUN/Creatinine Ratio 6.3 L, Glucose 117 H, Calcium 8.3 Rhythm Strip Rhythm Strip: A-fib Rate: 120 Ectopy: None Cardiology Labs/Tests 04/11/25 01:18: Hgb 8.6 L, Hct 26.7 L 04/11/25 05:13: WBC 9.5, RBC 2.88 L, Hgb 8.8 L, Hct 27.9 L, MCV 96.9 H, MCH 30.6, MCHC 31.5 L, Plt Count 174, MPV 12.3 H, Immature Gran % (Auto) 0.300, Neut % (Auto) 80.8 H, Lymph % (Auto) 7.7 L, [place] % (Auto) 9.5, Eos % (Auto) 1.4, Baso % (Auto) 0.3, Absolute Neuts (auto) 7.7, Nucleated RBC % 0, Sodium 136, Potassium 3.8, Chloride 95 L, Carbon Dioxide 24.0, Anion Gap 17 H, BUN 45 H, Creatinine 7.10 H, Est GFR (MDRD) Non-Af 8 L, BUN/Creatinine Ratio 6.3 L, Glucose 117 H, Calcium 8.3 Rhythm: EKG: ECHO: Stress Test: Cardiac Cath: PCI: CT Surgery: Holter monitor: EPS: PPM: CXR: Chest CT Scan:
--- NOTE | 2025-04-11 15:48 | CHAPLAIN ---
Type of Pastoral Visit _x__ Initial Visit ___ Follow-up Visit ___ On-call Visit ___ General Patient Visit ___ Spiritual Assessment ___ Family Conference ___ Bereavement ___ Rapid Response ___ Code Blue ___ Other (describe below) Pastoral Care Referral From _x__ Patient _x__ Family ___ Nurse ___ Physician ___ Cloth Stretcher ___ Sisal Operator ___ Other (describe below) Sacrament/Intervention _x__ Active listening ___ Anointing ___ Islam ___ Bereavement ___ Communion ___ Mee exploration ___ ___ Life review _x__ Prayer ___ Reconciliation ___ Sacrament of Sick _x__ Supportive presence ___ Wedding ___ Other (describe below) Pastoral Comments patient begins by thanking this road roller operator for the card and visit attempt made yesterday; pt acknowledges the encouragement that is for him and for spouse; spouse agrees; pt explains that new treatments have been added and that he is hopeful about better days to come; pt is given time to express what better days look like for him; pt has goal to visit his elderly father in [place]; pt is asked about needs and he responds that it is just for prayers at this time; prayer and presence given
[2025-04-11] MEDS: Cinacalcet HCl 30 MG Tablet 90 MG PO (17:04)
--- NOTE | 2025-04-11 17:23 | PCM.PN.BLA ---
Progress Note Patient underwent upper endoscopy yesterday and was discovered to have multiple angiodysplastic lesions that were treated endoscopically. However today he has been doing with hypotension and tachycardia and was diagnosed with atrial fibrillation is being seen by cardiology. Physical Exam Const alert, oriented x3, no apparent distress and average body habitus General Appearance: cooperative and comfortable HEENT normocephalic, head/scalp atraumatic, hearing grossly normal bilaterally, nasal mucous membranes and turbinates normal and moist oral mucous membranes Eyes PERRL, EOMs intact bilaterally and conjunctivae normal Neck full ROM Chest inspection of chest normal Resp normal respiratory effort, normal air movement, no use of accessory muscles and clear to auscultation bilaterally Cardio no murmurs and peripheral pulses 2+ throughout Cardio Narrative: A-fib with RVR. GI normal to inspection, nondistended, normoactive bowel sounds, soft to palpation, non-tender and non-distended Back/Spine normal ROM Extremity normal to inspection, full ROM and no pedal edema Skin no rashes or lesions noted Psych mental status grossly normal Assessment & Plan Assessment/Plan (1) Recurrent gastrointestinal hemorrhage: (2) Acute on chronic anemia: (3) Atrial fibrillation, new onset: PLAN: Plan Patient is a 69-year-old male who presented [facility] ED on 04/09/2025 with concern for recurrent GI bleed. 1. Recurrent GI bleed with acute on chronic anemia ? He has history of recurrent lower GI bleeds due to angiodysplasias; the goal was for him to be on octreotide as an outpatient which he recently started versus Avastin for recurrent GI bleed secondary to angiodysplasia. Avastin is a better drug for prevention of angiodysplastic lesions in the small bowel. However he cannot take it due to his cardiovascular issues. He presented with 3-day history of dark stools so unclear if upper versus lower GI bleed at this time. Hemoglobin 7.2 on admit, most recent hemoglobin 8.3 on 03/16. Patient tachycardic and pale appearing on exam. He was given 2 units of blood. He underwent an upper endoscopy yesterday: Findings: One column of grade I varices with no stigmata of recent bleeding were found in the lower third of the esophagus, 39 cm from the incisors. No red holly signs were present. Patchy mildly erythematous mucosa without bleeding was found in the stomach. Mild portal hypertensive gastropathy was found in the entire examined stomach. Two 5 mm angiodysplastic lesions with bleeding were found at the pylorus. Coagulation for hemostasis using heater probe was successful. Estimated blood loss was minimal. No gross lesions were noted in the entire examined duodenum. Impression: - Grade I esophageal varices with no stigmata of recent bleeding. - Erythematous mucosa in the stomach. - Portal hypertensive gastropathy. 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 Treated with a heater probe. - No gross lesions in the entire examined duodenum. - No specimens collected 2. New onset A-fib with RVR ? Follows with outpatient cardiology. No prior diagnosis of A-fib noted on chart. EKG on admit confirmed A-fib with RVR with rate in the 110s. He has been seen by cardiology and they are doing rate control without anticoagulation due to his high risk of GI bleeding. Visit Charges Inpatient E&M: 13209 Subs Hosp L3
--- NOTE | 2025-04-11 21:57 | PCM.HOSP.N ---
Hospitalist Note Patient with recurrent hypotension, not markedly symptomatic s/p HD today, prefers to avoid fluids, will administer midodrine dose.
[2025-04-11] MEDS: Atorvastatin Calcium 40 MG Tablet PO (22:24)
[2025-04-12 00:30] VITALS: BP 85/69; PULSE 110; RESP 16; TEMP 36.4; O2SAT 94
[2025-04-12 02:30] VITALS: BP 95/83; PULSE 97; RESP 16; TEMP 36.4; O2SAT 94
--- NOTE | 2025-04-12 03:51 | EKG12_ITS ---
Test Reason : RHYTHM CHANGE Blood Pressure : */* mmHG Vent. Rate : 117 BPM Atrial Rate : * BPM P-R Int : * ms QRS Dur : 162 ms QT Int : 390 ms P-R-T Axes : * 48 142 degrees QTcB Int : 544 ms Atrial fibrillation with rapid ventricular response with premature ventricular or aberrantly conducted complexes Left bundle branch block Abnormal ECG When compared with ECG of 09-Apr-2025 10:39, QRS axis Shifted right Confirmed by Aric Palomo ([id number]), editor & co founder BHAVNA LOOMIS ([id number]) on 04/12/2025 8:11:49 AM Referred By: Danny Wilkes Confirmed By: Aric Palomo
[2025-04-12 06:17] VITALS: BP 92/74; PULSE 110; RESP 16; TEMP 36.4; O2SAT 96
[2025-04-12 06:21] LABS: Absolute Neutrophil Count 5.8 X10^3/uL (2.0-7.7); Basophil# 0.05 X10^3/uL; Basophil% 0.6 % (0-1); Eosinophil# 0.13 X10^3/uL; Eosinophils% 1.6 % (0-5); Hematocrit 27.9 % (40-54); Lymphocyte % 13.7 % (19-41); Mean Corp Hgb Conc 32.3 g/dL (32-36); Mean Corpuscular Hgb 31.8 pg (27.0-32.0); Mean Corpuscular Volume 98.6 fL (80-94); Mean Platelet Vol. 12.4 fl (6.2-12.0); Monocyte# 0.88 X10^3/uL; NRBC Flagged by Analyzer 0 % (0-5); Neutrophil # 5.83 X10^3/uL (2.7-7.7); Neutrophil % 72.9 % (47-70); Platelet Count 179 K/mm3 (150-450); RBC Distribution Width CV 18.2 % (11.6-14.6); RBC Distribution Width SD 62.4 fl (35.1-43.9); Red Blood Count 2.83 M/mm3 (4.6-6.2)
[2025-04-12 06:49] LABS: Anion Gap 15 (5-15); BUN 40 mg/dL (4-19); BUN/Creat Ratio 6.5 RATIO (10-20); Calcium,Total 8.4 mg/dL (7.6-11.0); Carbon Dioxide 25.1 mmol/L (21.0-32.0); Chloride 97 mmol/L (98-108); Creatinine, Serum 6.07 mg/dL (0.70-1.20); EST Glomerular Filtration Rate 9 (>60); Estimated Creatinine Clearance 11.86 ml/min (50-250); Glucose 103 mg/dL (70-99); Potassium 3.7 mmol/L (3.3-5.1); Sodium Level 137 mmol/L (133-145)
--- NOTE | 2025-04-12 08:25 | PN.HOSP_ITS ---
Reason for Visit Reason for Visit: Diagnoses Anemia, unspecified (04/09/25) Atherosclerotic heart disease of kaibab coronary artery without angina pectoris (04/09/25) Unspecified atrial fibrillation (04/09/25) Unspecified systolic (congestive) heart failure (04/09/25) Hypotension, unspecified (04/09/25) Gastrointestinal hemorrhage, unspecified (04/09/25) End stage renal disease (04/09/25) Other specified abnormal findings of blood chemistry (04/09/25) Dependence on renal dialysis (04/09/25) Subjective Subjective Feeling well. No issues overnight. Objective Data Objective Data Vital Signs: Vital Signs Temp Pulse Resp BP Pulse Ox O2 Del Method O2 Flow Rate 36.4 C L 110 H 16 92/74 96 Room Air 3 04/12/25 06:17 04/12/25 06:17 04/12/25 06:17 04/12/25 06:17 04/12/25 06:17 04/12/25 06:17 04/10/25 14:20 Oxygen Flow Rate (L/min) 3 Oxygen Delivery Method Room Air Weight: 84 kg Body Mass Index (BMI) 26.5 Intake & Output: Intake and Output for Last 24 Hours 04/10/25 04/11/25 04/12/25 23:59 23:59 23:59 Intake Total 903.50 / 903.50 714.25 / 954.25 240 / 240 Output Total 1090 / 1090 Balance 903.50 / 903.50 -375.75 / -135.75 240 / 240 Lab / Micro Data 04/12/25 05:53 04/12/25 05:53 Labs: Laboratory Results - last 24 hr 04/11/25 08:10: Cortisol AM Sample Cancelled 04/12/25 05:53: WBC 8.0, RBC 2.83 L, Hgb 9.0 L, Hct 27.9 L, MCV 98.6 H, MCH 31.8, MCHC 32.3, RDW Std Deviation 62.4 H, RDW Coeff of Brynn 18.2 H, Plt Count 179, MPV 12.4 H, Immature Gran % (Auto) 0.200, Neut % (Auto) 72.9 H, Lymph % (Auto) 13.7 L, [place] % (Auto) 11.0 H, Eos % (Auto) 1.6, Baso % (Auto) 0.6, Absolute Neuts (auto) 5.8, Absolute Lymphs (auto) 1.10, Nucleated RBC % 0, Sodium 137, Potassium 3.7, Chloride 97 L, Carbon Dioxide 25.1, Anion Gap 15, BUN 40 H, Creatinine 6.07 H, Estim Creat Clear Calc 11.86 L, Est GFR (MDRD) Non-Af 9 L, BUN/Creatinine Ratio 6.5 L, Glucose 103 H, Calcium 8.4 Rhythm Strip Rhythm Strip: A-fib Rate: 120 Ectopy: None Physical Exam Const alert and no apparent distress HEENT head/scalp atraumatic Resp normal respiratory effort and no retractions Cardio Cardio Narrative: irregularly irregular Assessment & Plan Assessment/Plan (1) Recurrent gastrointestinal hemorrhage: PLAN: Recurrent GI bleed with acute on chronic anemia Admit under inpatient status to PCU. Has history of recurrent lower GI bleeds due to angiodysplasias; presented with 3-day history of dark stools EGD on 04/10 showed grade I esophageal varices w no stigmata of recent bleeding. Erythematous mucosa in the stomach. Portal hypertensive gastropathy. 2 bleeding angiodysplastic lesions in the stomach, treated w heater probe. (2) Acute on chronic anemia: PLAN: s/p transfusion of PRBCs. Improved after 2 units PRBCs. And has remained stable. (3) Atrial fibrillation, new onset: PLAN: new onset A-fib with RVR Follows with outpatient cardiology. Still in afib. IRIS Palomo on 04/10, the patient's medicare sales representative, he does not feel a consult is necessary at this time, but recommended changing his carvedilol. At home his carvedilol is 25 QSuMoWeFr, he recommeded changing it to 6.25 BID daily. Since patient already received his 25 of carvedilol today, will start the changed dosing on 04/11. Discussed with Dr. Palomo on 04/11, he will now be formally consulted. He recommended DC carvedilol given the hypotension and start amiodarone 400 BID. Continue amiodarone 400 BID then transition to 200 BID and follow up with cardiology in 4 weeks to see if need for DCCV. Not a candidate for anticoagulation given the ongoing issues with GI bleeding and anemia at this time. DW Dr. Palomo, ok for discharge. Patient to follow up in 10-14 days. (4) Hypotension: QUALIFIERS: Hypotension type: unspecified hypotension type Q ualified Code(s): I95.9 - Hypotension, unspecified PLAN: Recurrent in AM, again receiving midodrine. Cortisol WNL. Seems the hypotension is mostly at night and he is asymptomatic. PRN midodrine (5) Elevated troponin: PLAN: chronically elevated. Likely demand ischemic from anemia and skewed given CKD on HD. PLAN: Plan Chronic conditions: * ESRD on HD? Nephrology consulted. On HD Thursday. Last HD session on day prior to admission. Appreciate nephrology recommendations. * Recent CVA with right carotid artery stenosis, hypertension, hyperlipidemia, history of bicuspid aortic valve s/p TAVR? Recent hospitalization in early January for acute CVA. Was found to have severe right-sided carotid artery stenosis. Vascular surgery followed and noted that his severe anemia was likely contributing to the severe findings on carotid ultrasound and it was felt this was not the source of his stroke. Was suspected by neurology to be an ischemic stroke. Patient did not wear heart monitor to evaluate for A-fib. Continue home aspirin, statin, and Coreg. Holding home losartan in setting of mild hypotension on admission, resume as able. * HFrEF: ACEi/ARB, BB held given issues with hypotension. May restart at a later point as outpt. IRIS patient's at bedside.
--- NOTE | 2025-04-12 09:37 | PCM.PN.CARD ---
Subjective Subjective Patient reports he is feeling better denies any lightheaded or dizzy spells he has been up ambulating in his room. He is tired is his only complaint. Objective Data Vital Signs: Vital Signs Temp Pulse Resp BP Pulse Ox O2 Del Method O2 Flow Rate 97.5 F L 110 H 16 92/74 96 Room Air 3 04/12/25 06:17 04/12/25 06:17 04/12/25 06:17 04/12/25 06:17 04/12/25 06:17 04/12/25 06:17 04/10/25 14:20 Oxygen Flow Rate (L/min) 3 Oxygen Delivery Method Room Air Weight: 185 lb 3.013 oz Body Mass Index (BMI) 26.5 Intake & Output: Intake and Output for Last 24 Hours 04/10/25 04/11/25 04/12/25 23:59 23:59 23:59 Intake Total 903.50 / 903.50 714.25 / 954.25 240 / 240 Output Total 1090 / 1090 Balance 903.50 / 903.50 -375.75 / -135.75 240 / 240 Lab / Micro Data Attestation: I reviewed the patient's lab results. 04/12/25 05:53 04/12/25 05:53 Labs: Laboratory Results - last 24 hr 04/11/25 08:10: Cortisol AM Sample Cancelled 04/12/25 05:53: WBC 8.0, RBC 2.83 L, Hgb 9.0 L, Hct 27.9 L, MCV 98.6 H, MCH 31.8, MCHC 32.3, RDW Std Deviation 62.4 H, RDW Coeff of Brynn 18.2 H, Plt Count 179, MPV 12.4 H, Immature Gran % (Auto) 0.200, Neut % (Auto) 72.9 H, Lymph % (Auto) 13.7 L, [place] % (Auto) 11.0 H, Eos % (Auto) 1.6, Baso % (Auto) 0.6, Absolute Neuts (auto) 5.8, Absolute Lymphs (auto) 1.10, Nucleated RBC % 0, Sodium 137, Potassium 3.7, Chloride 97 L, Carbon Dioxide 25.1, Anion Gap 15, BUN 40 H, Creatinine 6.07 H, Estim Creat Clear Calc 11.86 L, Est GFR (MDRD) Non-Af 9 L, BUN/Creatinine Ratio 6.5 L, Glucose 103 H, Calcium 8.4 Rhythm Strip Rhythm Strip: A-fib Rate: 110 Ectopy: None Cardiology Labs/Tests 04/12/25 05:53: WBC 8.0, RBC 2.83 L, Hgb 9.0 L, Hct 27.9 L, MCV 98.6 H, MCH 31.8, MCHC 32.3, Plt Count 179, MPV 12.4 H, Immature Gran % (Auto) 0.200, Neut % (Auto) 72.9 H, Lymph % (Auto) 13.7 L, [place] % (Auto) 11.0 H, Eos % (Auto) 1.6, Baso % (Auto) 0.6, Absolute Neuts (auto) 5.8, Nucleated RBC % 0, Sodium 137, Potassium 3.7, Chloride 97 L, Carbon Dioxide 25.1, Anion Gap 15, BUN 40 H, Creatinine 6.07 H, Est GFR (MDRD) Non-Af 9 L, BUN/Creatinine Ratio 6.5 L, Glucose 103 H, Calcium 8.4 Rhythm: EKG: ECHO: Stress Test: Cardiac Cath: PCI: CT Surgery: Holter monitor: EPS: PPM: CXR: Chest CT Scan: Physical Exam Const alert and oriented x3 HEENT normocephalic Neck no JVD Resp normal respiratory effort and clear to auscultation bilaterally Cardio Rate: tachycardic Rhythm: abnormal rhythm irregularly irregular Heart Sounds: S1 normal, S2 normal and murmur systolic II/ harsh left sternal border; Negative for click or gallop Extremity no pedal edema Neuro Neuro Narrative: Alert and oriented x 3 Psych mental status grossly normal Assessment & Plan Assessment/Plan (1) HFrEF (heart failure with reduced ejection fraction): PLAN: Patient carries an ejection fraction of 25% related to valvular heart disease. He also has not on revascularized circumflex lesion that has been treated medically. He is not having any evidence of ischemia. Patient has been very difficult to treat with guideline directed medical therapy due to profound hypotension. We actually had to hold his Coreg and losartan on his days of dialysis. Since admission he has been intolerant of the Coreg or metoprolol due to hypotension. He is now in atrial fibrillation and we have switched to amiodarone to try to rate control and without impacting his blood pressure. (2) ESRD (end stage renal disease) on dialysis: PLAN: Patient will continue with his dialysis per his previously arranged schedule. (3) Recurrent gastrointestinal hemorrhage: PLAN: Patient had a GI bleed he has had recurrent multiple GI bleeds related to angiodysplasia. Hemoglobin is stable at 9.0 today. (4) Hypotension: QUALIFIERS: Hypotension type: unspecified hypotension type Qualified Code(s): I95.9 - Hypotension, unspecified PLAN: Patient has been difficult to treat due to his ongoing hypotension. At this point time we have discontinued his Coreg and his losartan. He has been placed on midodrine 10 mg as needed. I would recommend we not try to utilize this in the home environment as he is had no symptoms with his low blood pressure. Will continue to use amiodarone for heart rate control. PLAN: Plan 1. Continue amiodarone 400 mg twice daily until discharge. At discharge decrease the dose to 200 mg twice daily. 2. Have the patient follow-up in 10 to 14 days in the [place] [facility] for repeat ECG. He should be seen by advanced practitioner at that time. 3. As tolerated will try to reimplement low-dose Coreg on the days he does not do dialysis as an outpatient. Will also try to reinstitute his losartan as tolerated. 4. From a cardiovascular standpoint the patient should be able to be discharged to home when felt to be appropriate by the primary service. Charges/Coding Visit Charges Inpatient E&M: 92521 Subs Hosp L2
[2025-04-12 09:38] VITALS: BP 102/79; PULSE 119; RESP 17; TEMP 36.5; O2SAT 96
[2025-04-12] MEDS: Amiodarone 200 MG Tablet 400 MG PO (09:44)
[2025-04-12] MEDS: Multivitamins,Therapeutic Tablet 1 TABLET PO (09:44)
[2025-04-12] MEDS: Acetaminophen 500 MG Tablet 1000 MG PO (09:44)
[2025-04-12] MEDS: SEVELAMER CARBONATE 800 MG TABLET PO ×2 (09:45→13:09)
[2025-04-12] MEDS: Cyanocobalamin 500 MCG Tablet 1000 MCG PO (09:45)
[2025-04-12] MEDS: Pantoprazole Sodium 40 MG in 0.9% Normal Saline (100mL MB+) 100 ML 330 MG IV (09:46)
[2025-04-12] MEDS: 0.9% Saline Lock 10 ML Syringe IV ×2 (09:46→13:09)
--- NOTE | 2025-04-12 12:29 | PCM.DC.SUM ---
Providers Date of Admission: 04/09/25 Primary Care Physician: Dr. Pavithra Henning MD Consultations 04/09/25 14:04 Consult: Gastroenterology Routine Consulting Provider: [facility] Reason for Consult: recurrent GI bleed EMERGENT Consult: No Notified: Yes Date Notified: 04/09/25 Time Notified: 14:07 Method of Notification: Text Consult: Nephrology Routine Consulting Provider: Hanh Russo Reason for Consult: ESRD on HD EMERGENT Consult: No Notified: Yes Date Notified: 04/09/25 Time Notified: 14:09 Method of Notification: Answering Service 04/11/25 11:00 Consult: Cardiology Routine Consulting Provider: Aric Palomo Reason for Consult: afib EMERGENT Consult: No Notified: Yes Date Notified: 04/11/25 Time Notified: 11:00 Method of Notification: Verbal Reason For Visit: RECURRENT GI BLEED Diagnosis Discharge Diagnosis (1) Recurrent gastrointestinal hemorrhage: Status: Acute Code(s): K92.2 - Gastrointestinal hemorrhage, unspecified Plan: Recurrent GI bleed with acute on chronic anemia Admit under inpatient status to PCU. Has history of recurrent lower GI bleeds due to angiodysplasias; presented with 3-day history of dark stools EGD on 04/10 showed grade I esophageal varices w no stigmata of recent bleeding. Erythematous mucosa in the stomach. Portal hypertensive gastropathy. 2 bleeding angiodysplastic lesions in the stomach, treated w heater probe. (2) Acute on chronic anemia: Status: Chronic Code(s): D64.9 - Anemia, unspecified Plan: s/p transfusion of PRBCs. Improved after 2 units PRBCs. And has remained stable. (3) Atrial fibrillation, new onset: Status: Acute Code(s): I48.91 - Unspecified atrial fibrillation Plan: new onset A-fib with RVR Follows with outpatient cardiology. Still in afib. DW Dr. Palomo on 04/10, the patient's check clerk, he does not feel a consult is necessary at this time, but recommended changing his carvedilol. At home his carvedilol is 25 QSuMoWeFr, he recommeded changing it to 6.25 BID daily. Since patient already received his 25 of carvedilol today, will start the changed dosing on 04/11. Discussed with Dr. Palomo on 04/11, he will now be formally consulted. He recommended DC carvedilol given the hypotension and start amiodarone 400 BID. Continue amiodarone 400 BID then transition to 200 BID and follow up with cardiology in 4 weeks to see if need for DCCV. Not a candidate for anticoagulation given the ongoing issues with GI bleeding and anemia at this time. DW Dr. Palomo, mehran for discharge. Patient to follow up in 10-14 days. (4) Hypotension: Status: Acute Code(s): I95.9 - Hypotension, unspecified Qualifiers: Hypotension type: unspecified hypotension type Qualified Code(s): I95.9 - Hypotension, unspecified Plan: Recurrent in AM, again receiving midodrine. Cortisol WNL. Seems the hypotension is mostly at night and he is asymptomatic. PRN midodrine (5) Elevated troponin: Status: Acute Code(s): R79.89 - Other specified abnormal findings of blood chemistry Plan: chronically elevated. Likely demand ischemic from anemia and skewed given CKD on HD. Plan Chronic conditions: ESRD on HD? Nephrology consulted. On HD Thursday. Last HD session on day prior to admission. Appreciate nephrology recommendations. Recent CVA with right carotid artery stenosis, hypertension, hyperlipidemia, history of bicuspid aortic valve s/p TAVR? Recent hospitalization in early January for acute CVA. Was found to have severe right-sided carotid artery stenosis. Vascular surgery followed and noted that his severe anemia was likely contributing to the severe findings on carotid ultrasound and it was felt this was not the source of his stroke. Was suspected by neurology to be an ischemic stroke. Patient did not wear heart monitor to evaluate for A-fib. Continue home aspirin, statin, and Coreg. Holding home losartan in setting of mild hypotension on admission, resume as able. HFrEF: ACEi/ARB, BB held given issues with hypotension. May restart at a later point as outpt. IRIS patient's at bedside. Medications at Discharge Home Medications cyanocobalamin (vitamin B-12) 1,000 mcg tablet (Vitamin B-12) 1,000 mcg PO DAILY supplement 01/12/24 acetaminophen 500 mg tablet 1,000 mg PO BID PAIN 12/02/24 coenzyme Q10 200 mg capsule (Co Q-10) 200 mg PO DAILY supplement 12/02/24 epoetin beta, methoxy peg See Rx Instructions subcut .COMPLEX PRN low blood counts 12/02/24 sevelamer carbonate 800 mg tablet 800 mg PO TIDCM phosphate binder 12/27/24 ascorbic acid (vitamin C) 500 mg tablet 500 mg PO BID supplement #60 tabs 12/29/24 aspirin 81 mg chewable tablet 81 mg PO DINNER [facility] 01/19/25 Held on 04/12/25. Instructions: Resume on 04/16/25. pantoprazole 40 mg tablet,delayed release (Protonix) 40 mg PO BID stomach 30 days #60 tabs 02/10/25 atorvastatin 40 mg tablet 40 mg PO QHS cholesterol #90 tabs 03/20/25 psyllium husk 0.4 gram capsule (Metamucil) 0.4 g PO DAILY 03/23/25 octreotide,microspheres 30 mg intramuscular susp, extended release (Sandostatin LAR Depot) 30 mg IM Q4W #1 ea 03/27/25 cholecalciferol (vitamin D3) 125 mcg (5,000 unit) capsule 125 mcg PO TUTHSA supplement 04/09/25 cinacalcet 90 mg tablet (Sensipar) 90 mg PO TUTHSA 04/09/25 vitamin B complex-vitamin C-folic acid 0.8 mg tablet (Dialyvite 800) 1 tab PO SUMOWEFR 04/09/25 amiodarone 200 mg tablet 200 mg PO BID #60 tabs 04/12/25 midodrine 10 mg tablet 10 mg PO TID PRN low blood pressure. #20 tabs 04/12/25 Hospital Course Operations None Procedures EGD Summary of Care Provided Minutes Spent on Discharge: 35 Weight / BMI Weight Weight: 84 kg Body Mass Index (BMI) 26.5 ABG / Lab / Microbiology Data 04/12/25 05:53 04/12/25 05:53 Laboratory: Laboratory Results - last 24 hr 04/09/25 10:24: Crossmatch See Detail 04/11/25 08:10: Cortisol AM Sample Cancelled 04/12/25 05:53: WBC 8.0, RBC 2.83 L, Hgb 9.0 L, Hct 27.9 L, MCV 98.6 H, MCH 31.8, MCHC 32.3, RDW Std Deviation 62.4 H, RDW Coeff of Brynn 18.2 H, Plt Count 179, MPV 12.4 H, Immature Gran % (Auto) 0.200, Neut % (Auto) 72.9 H, Lymph % (Auto) 13.7 L, [place] % (Auto) 11.0 H, Eos % (Auto) 1.6, Baso % (Auto) 0.6, Absolute Neuts (auto) 5.8, Absolute Lymphs (auto) 1.10, Nucleated RBC % 0, Sodium 137, Potassium 3.7, Chloride 97 L, Carbon Dioxide 25.1, Anion Gap 15, BUN 40 H, Creatinine 6.07 H, Estim Creat Clear Calc 11.86 L, Est GFR (MDRD) Non-Af 9 L, BUN/Creatinine Ratio 6.5 L, Glucose 103 H, Calcium 8.4 04/12/25 09:04: Cortisol AM Sample 15.20 D/C Instructions Discharge Diet: Renal Diet DC O2, CPAP, BIPAP Needs Home O2 Discharge instructions: No Meaningful Use Info Meaningful Use Meaningful Use Diagnoses (Choose all that apply): None applicable Ischemic Stroke Statin Dosing Therapy Reference: STATIN DOSE THERAPY REFERENCE: * Patients > 75 years receive moderate or high dose statin therapy. * Patients 75 years or YOUNGER should receive HIGH intensity statin dose unless contraindicated. You will be required to document reason for non-treatment if statin daily dose does not meet guidelines. HIGH DOSE STATIN THERAPY DAILY Atorvastatin > than or = to 40 mg Rosuvastatin > than or = to 20 mg Amlodipine + Atorvastatin > than or = to 2.5/40 mg Ezetimibe + Simvastatin 10/80 mg Simvastatin 80mg Discharge Plan Admission Admit Date/Time: 04/09/25 12:02 Primary Reason for Your Visit: GI bleed Attending Provider: Kojo Rincon Primary Care Provider: Pavithra Henning Consulting Providers: Hanh Russo; Danny Wilkes; Aric Palomo Discharge Orders/Prescriptions Prescriptions: New amiodarone 200 mg Tablet 200 mg PO BID Qty: 60 0RF midodrine 10 mg tablet 10 mg PO TID PRN (Reason: low blood pressure.) Qty: 20 0RF Rx Instructions: do not give last dose of day after 6PM or within 4 hrs of bedtime Continued coenzyme Q10 [Co Q-10] 200 mg capsule 200 mg PO DAILY epoetin beta, methoxy peg [Mircera] See Rx Instructions subcut .COMPLEX PRN (Reason: low blood counts) Patient Comments: GETS AT [facility] Rx Instructions: only in dialysis subcutaneously PRN; administered by dialysis infusion atorvastatin 40 mg tablet 40 mg PO QHS Qty: 90 3RF psyllium husk [Metamucil] 0.4 gram capsule 0.4 g PO DAILY octreotide,microspheres [Sandostatin LAR Depot] 30 mg suspension,extended rel recon 30 mg IM Q4W Qty: 1 3RF acetaminophen 500 mg tablet 1,000 mg PO BID cyanocobalamin (vitamin B-12) [Vitamin B-12] 1,000 mcg tablet 1,000 mcg PO DAILY sevelamer carbonate 800 mg tablet 800 mg PO TIDCM ascorbic acid (vitamin C) 500 mg tablet 500 mg PO BID Qty: 60 2RF pantoprazole [Protonix] 40 mg tablet,delayed release (DR/EC) 40 mg PO BID 30 Days Qty: 60 1RF Dialyvite 800 0.8 mg tablet 1 tab PO SUMOWEFR cinacalcet [Sensipar] 90 mg tablet 90 mg PO TUTHSA Rx Instructions: TAKE 1 TAB AFTER DIALYSID ONLY/ cholecalciferol (vitamin D3) 125 mcg (5,000 unit) capsule 125 mcg PO TUTHSA Held aspirin 81 mg Tablet,Chewable 81 mg PO DINNER Hold Instructions: Resume on 04/16/25. Discontinued heparin (porcine) 5,000 unit/mL solution 5,000 unit subcut ONCE Rx Instructions: Given as an infusion during dialysis iron IV .ONCE Rx Instructions: given as an infusion during dialysis periodically as needed losartan 25 mg tablet 25 mg PO BID Rx Instructions: does not take am dose on dialysis days THURSDAY, THURSDAY, THURSDAY carvedilol 12.5 mg tablet 12.5 mg PO SUMOWEFR Rx Instructions: Does not take on Tuesdays, , and Saturdays due to dialysis Referrals / Follow Up: [facility] [Provider Group] - Within 1 Month [facility] [Provider Group] - Within 1 Week Pavtihra Henning MD [Primary Care Provider] - Within 2 Weeks Disposition Disposition (needs filled in before D/C Order can be placed): Home, Self Care Charges/Coding Visit Charges Inpatient E&M: 98751 Disch Hosp >30min
--- NOTE | 2025-04-12 14:12 | CASEMGMT ---
Patient has order for discharge. RN CM in to discuss needs at discharge. Patient denies needs or help at discharge. Patient had no further questions or concerns.
[2025-04-12 14:19] VITALS: BP 90/73; PULSE 113; RESP 17; TEMP 36.6; O2SAT 100
--- NOTE | 2025-04-12 14:54 | PHA.DC.MC.R ---
Pharmacy [facility] Counseling Pharmacy Service has performed discharge medication reconciliation and counseling for this patient. 1. AMIODARONE 200MG PO BID 2. MIDODRINE 10MG PO TID PRN BLOOD PRESSURE 3. STOP LOSARTAN AND CARVEDILOL 4. RESTART ASPIRIN 04/16 The patient's discharge medication list was reviewed for discrepancies and discrepancies were resolved. The patient was counseled on the following discharge medications and changes in medications for homegoing were reviewed. The Reason for Use, instructions for use, and potential side effects were reviewed for all new medications. The patient's questions regarding all of their medications were answered. The patient was able to verbally demonstrate an understanding of their discharge medications. Medications at Discharge Home Medications cyanocobalamin (vitamin B-12) 1,000 mcg tablet (Vitamin B-12) 1,000 mcg PO DAILY supplement 01/12/24 acetaminophen 500 mg tablet 1,000 mg PO BID PAIN 12/02/24 coenzyme Q10 200 mg capsule (Co Q-10) 200 mg PO DAILY supplement 12/02/24 epoetin beta, methoxy peg See Rx Instructions subcut .COMPLEX PRN low blood counts 12/02/24 sevelamer carbonate 800 mg tablet 800 mg PO TIDCM phosphate binder 12/27/24 ascorbic acid (vitamin C) 500 mg tablet 500 mg PO BID supplement #60 tabs 12/29/24 aspirin 81 mg chewable tablet 81 mg PO DINNER [employer] 01/19/25 Held on 04/12/25. Instructions: Resume on 04/16/25. pantoprazole 40 mg tablet,delayed release (Protonix) 40 mg PO BID stomach 30 days #60 tabs 02/10/25 atorvastatin 40 mg tablet 40 mg PO QHS cholesterol #90 tabs 03/20/25 psyllium husk 0.4 gram capsule (Metamucil) 0.4 g PO DAILY bowls 03/23/25 octreotide,microspheres 30 mg intramuscular susp, extended release (Sandostatin LAR Depot) 30 mg IM Q4W bowels #1 ea 03/27/25 cholecalciferol (vitamin D3) 125 mcg (5,000 unit) capsule 125 mcg PO TUTHSA supplement 04/09/25 cinacalcet 90 mg tablet (Sensipar) 90 mg PO TUTHSA para thyroid hormone 04/09/25 vitamin B complex-vitamin C-folic acid 0.8 mg tablet (Dialyvite 800) 1 tab PO SUMOWEFR vitamin 04/09/25 amiodarone 200 mg tablet 200 mg PO BID #60 tabs 04/12/25 midodrine 10 mg tablet 10 mg PO TID PRN low blood pressure. #20 tabs 04/12/25
== END 2025-04-12 14:58 | disposition home or self-care (01) | DRG 377 ==
LOC: ED 11:51 → PCU 12:19
PROVIDERS: Family Medicine; Internal Medicine Gastroenterology; Admitting Provider Hospitalist; Emergency Provider Emergency Medicine; PCP Internal Medicine; Referring Provider Hospitalist
PROC: 0DJ08ZZ Inspection of Upper Intestinal Tract, Via Natural or Artificial Opening Endoscopic (ICD-10-PCS; CPT 43235; principal; 2025-04-10 12:05)
DX: K31.811 Angiodysplasia of stomach and duodenum with bleeding (principal); N18.6 End stage renal disease; I13.2 Hypertensive heart and chronic kidney disease with heart failure and with stage 5 chronic kidney disease, or end stage renal disease; I24.89 Other forms of acute ischemic heart disease; D62 Acute posthemorrhagic anemia; K76.6 Portal hypertension; I50.20 Unspecified systolic (congestive) heart failure; D63.1 Anemia in chronic kidney disease; I65.21 Occlusion and stenosis of right carotid artery; Z95.2 Presence of prosthetic heart valve; I48.0 Paroxysmal atrial fibrillation; D50.9 Iron deficiency anemia, unspecified; F17.200 Nicotine dependence, unspecified, uncomplicated; Z99.2 Dependence on renal dialysis; E78.5 Hyperlipidemia, unspecified; E87.6 Hypokalemia; I85.00 Esophageal varices without bleeding; K31.89 Other diseases of stomach and duodenum; I25.10 Atherosclerotic heart disease of native coronary artery without angina pectoris; Z79.82 Long term (current) use of aspirin; Z82.49 Family history of ischemic heart disease and other diseases of the circulatory system; Z86.73 Personal history of transient ischemic attack (TIA), and cerebral infarction without residual deficits
CPT/HCPCS: 36415; 71045; 80048; 80053; 82533; 83735; 84100; 84484; 85014; 85018; 85025; 85027; 85610; 85730; 86850; 86900; 86901; 90937; 93005; 99285; C1889; P9016; A4216; G0257; J2405

== ENCOUNTER 2025-04-18 14:52 | Inpatient (IN) | payer MEDICARE, BC, SELFPAY ==
[2025-02-10 11:35] VITALS: BMI 29.4
[2025-04-18] VITALS (13 sets, daily range): BP systolic 86–103; BP diastolic 67–84; PULSE 56–139; RESP 14–28; TEMP 36.6–36.8; O2SAT 94–100; BMI 27.2; BMI 27.5
--- NOTE | 2025-04-18 15:30 | EKG12_ITS ---
Test Reason : CP Blood Pressure : */* mmHG Vent. Rate : 139 BPM Atrial Rate : * BPM P-R Int : * ms QRS Dur : 172 ms QT Int : 360 ms P-R-T Axes : * -85 107 degrees QTcB Int : 547 ms Atrial fibrillation with rapid ventricular response Left axis deviation Non-specific intra-ventricular conduction block Possible Lateral infarct , age undetermined Abnormal ECG Confirmed by Aric Palomo ([id number]), primer expeditor and drier DARRIUS ALONSO ([id number]) on 04/20/2025 6:12:18 AM Referred By: Confirmed By: Aric Palomo
--- NOTE | 2025-04-18 15:30 | RAD_ITS ---
PROCEDURE: CHEST 1 VIEW (PORTABLE) 04/18/2025 REASON FOR EXAM: DYSPNEA ON EXERTION TECHNIQUE: Frontal view of the chest. COMPARISON: Chest x-ray of 04/09/2025. RAD/Chest 1 View (Portable) IMPRESSION: Progressive interval increase in right basilar airspace disease, albeit in the presence of relative hypoinflation. Differential diagnosis includes pneumonitis and atelectasis. No evidence of pulmonary edema. No pleural effusion is clearly seen. No pneumothorax is evident. Right upper chest surgical clips are again noted. The cardiomediastinal silhouette is unchanged. No interval osseous change is noted. Prominent bilateral glenohumeral joint ar thritic changes are again present. Reading Location: [address]
--- NOTE | 2025-04-18 15:43 | EDS_ITS ---
HPI History of Present Illness Chief Complaint: Weakness Detail of Chief Complaint: Generalized weakness and worsening dyspnea on exertion Informant: patient and spouse/S.O. Onset/Context/Timing Onset: Days Context: Gradual Onset Timing: Continuous Quality: Patient reports he is only able to walk 25 feet. Location: Cardiovascular Current Severity: Mild Maximum Severity: Severe Worsened by: Walking. Relieved by: Rest Associated Symptoms Associated Symptoms: Generalized weakness Narrative Narrative: Patient is a 69-year-old male. He was recently admitted for upper GI bleed. He also was noted to be in atrial fibrillation. He is on amiodarone and a baby aspirin. He is on no anticoagulant because of recent GI bleed. He states he is getting worse. He states he needs a JUANCARLOS before he can be cardioverted. Patient brought a list of his meds. He is on midodrine for low blood pressure. Patient does give orthostatic lightheadedness as well as generalized weakness. He has had increased swelling of his legs. He had swelling of his legs for a long time. He has been on dialysis for 7 to 8 years. He states he makes no urine. Patient arrived in [facility] with RVR. Nurses were concerned he has V. tach. 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 He is hypotensive. Since he is hypotensive Dr. Rodney rosen was paged to discuss and possible emergent cardioversion. Realizing there is a risk since he has not been anticoagulated. Metoprolol may cause him to have further drop in his blood pressure. Discussed possibility of pretreating with calcium gluconate and administering Cardizem for rate control. Dr. Palomo recommended 150 mg bolus of amiodarone. Patient denies chest pain, pressure, tightness or heaviness. Patient sleeps with 1 pillow at night. Patient denies PND. Since patient has not had a discussion with anyone or has not been documented regarding CODE STATUS this was broached by me. Prior similar symptoms: No Recent Illness/Hospitalization: Yes [facility] Medical History (Updated 04/18/25 @ 16:[address] Chago Rios MD) Elevated troponin ESRD (end stage renal disease) on dialysis Diverticulosis ESRD on hemodialysis Ischemic stroke Chronic anemia CVA (cerebral vascular accident) ESRD (end stage renal disease) Symptomatic anemia Carotid stenosis, right Acute anemia Black stool History of transcatheter aortic valve replacement (TAVR) Wears glasses History of steroid therapy History of renal disease Low iron Rheumatoid arthritis Back pain Migraine headache Dietary restriction History of diverticulitis History of ulceration Shortness of breath on exertion Lymphedema History of echocardiogram Cardiology follow-up encounter Hypertension Chronic renal failure Anemia DVT (deep venous thrombosis) End stage renal disease on dialysis Secondary hyperparathyroidism Generalized weakness Acute on chronic anemia Acute upper GI bleed History of end stage renal disease History of renal dialysis Dialysis patient Hepatitis Smoker Bursitis Problem with dialysis access Rectal bleeding Subclavian aneurysm Kidney failure due to vascular disorder Cardiac disease Rheumatoid vasculitis Rheumatoid aortitis Home Medications ?Medication ?Instructions ?Recorded ?Last Taken ?Type cyanocobalamin (vitamin B-12) 1,000 mcg PO DAILY suppl ement 01/12/24 04/18/25 History 1,000 mcg tablet (Vitamin B-12) acetaminophen 500 mg tablet 1,000 mg PO BID PAIN 12/0204/09/25 History coenzyme Q10 200 mg capsule (Co 200 mg PO DAILY supple ment 12/02/24 04/18/25 History Q-10) epoetin beta, methoxy peg See Rx Instructions subcut 0 12/02/24 04/08/25 History .COMPLEX PRN low blood counts sevelamer carbonate 800 mg tablet 800 mg PO TIDCM phos phate binder 12/27/24 04/18/25 History ascorbic acid (vitamin C) 500 mg 500 mg PO BID supplem ent #60 tabs 12/29/24 04/08/25 Rx tablet aspirin 81 mg chewable tablet 81 mg PO DINNER heart he alth 01/19/25 04/08/25 History Held on 04/12/25. Instructions: Resume on 04/16/25. pantoprazole 40 mg tablet,delayed 40 mg PO BID stomach 30 days #60 02/10/25 04/18/25 Rx release (Protonix) tabs atorvastatin 40 mg tablet 40 mg PO QHS cholesterol #90 tabs 03/20/25 04/17/25 Rx psyllium husk 0.4 gram capsule 0.4 g PO DAILY bowls 04/08/25 History (Metamucil) octreotide,microspheres 30 mg 30 mg IM Q4W bowels #1 e a 03/27/25 03/28/25 Rx intramuscular susp, extended release (Sandostatin [place]) cholecalciferol (vitamin D3) 125 125 mcg PO TUTHSA sup plement 04/09/25 04/08/25 History mcg (5,000 unit) capsule cinacalcet 90 mg tablet (Sensipar) 90 mg PO TUTHSA par a thyroid 04/09/25 04/08/25 History hormone vitamin B complex-vitamin C-folic 1 tab PO SUMOWEFR vi tamin 04/09/25 04/18/25 History acid 0.8 mg tablet (Dialyvite 800) amiodarone 200 mg tablet 200 mg PO BID #60 tabs 04/1204/17/25 Rx midodrine 10 mg tablet 10 mg PO TID PRN low blood 0 04/12/25 Unknown Rx pressure. #20 tabs Allergy/AdvReac Type Severity Reaction Status Date / Time No Known Allergies Allergy Verified 04/18/25 14:53 Family History Father Heart disease Atrial fibrillation Mother , 88 Heart disease Myocardial infarction Brother Heart disease Myocardial infarction Surgical History History of cardiac catheterization Hx of colonoscopy with polypectomy History of esophagogastroduodenoscopy (EGD) Hx of arteriovenostomy for renal dialysis (~12/2019) Status post insertion of dialysis catheter (~11/2019) History of umbilical hernia s/p subclavian graft S/P knee surgery History of bicuspid aortic valve Social History adopted: No household members: spouse housing: house number of children: 2 current occupational status: retired pets and animals: No sexually active: No Smoking Status: Current every day smoker tobacco type: cigarettes Tobacco: How many years used: 40 quit status: has quit before alcohol intake: never substance use type: does not use caffeine: Yes (2) Type: coffee what type of physical activity do you participate in: aerobics and other d etails: leg excercises frequency: 3-4 times per week do you feel safe at home: Yes ROS ROS ED Constitutional Constitutional ED: Denies chills, fever(s), subjective, sweats or weight loss Eyes Eyes: Denies blurry vision or change in vision ENT ENT ED: Denies ear pain, rhinorrhea or sore throat Cardiovascular Cardiovascular: Reports palpitations and racing heartbeat; Denies chest pain, orthopnea or paroxysmal nocturnal dyspnea Respiratory/Chest Respiratory/Chest: Reports dyspnea and dyspnea on exertion; Denies cough, orthopnea or paroxysmal nocturnal dyspnea Gastrointestinal Gastrointestinal: Denies abdominal pain, melena, nausea or vomiting Genitourinary Genitourinary ED: Denies dysuria, hematuria or urinary frequency Musculoskeletal Musculoskeletal: Denies arthralgias or myalgias Integumentary Denies rash Neurologic Neurologic: Reports weakness Psychiatric Psychiatric: Denies anxiety Endocrine Endocrinology: Reports cold intolerance Hematologic/Lymphatic Hematologic/Lymphatic: Reports systems reviewed and no addt'l complaints, except as documented EXAM Physical Exam Const Vital Signs: 04/18/25 14:53 04/18/25 15:25 04/18/25 15:29 Temperature 97.9 F Temperature Source Oral Pulse Rate 56 L Respiratory Rate 18 Respiratory Effort Short of Breath Short of Breath Blood Pressure 89/78 L Blood Pressure Mean 81 Pulse Ox 100 Oxygen Delivery Method Room Air 04/18/25 15:44 04/18/25 15:44 04/18/25 15:48 Temperature Temperature Source Pulse Rate 139 H 133 H Respiratory Rate 20 H 22 H Respiratory Effort Blood Pressure 103/84 H 103/84 H Blood Pressure Mean 90 90 Pulse Ox 100 Oxygen Delivery Method Room Air 04/18/25 15:57 04/18/25 16:07 04/18/25 16:49 Temperature Temperature Source Pulse Rate 136 H 133 H 122 H Respiratory Rate 28 H Respiratory Effort Blood Pressure 89/69 L 87/71 L 97/78 Blood Pressure Mean 75 76 84 Pulse Ox 100 100 Oxygen Delivery Method Room Air 04/18/25 17:00 04/18/25 17:09 Temperature 97.9 F Temperature Source Pulse Rate 128 H 125 H Respiratory Rate 14 Respiratory Effort Blood Pressure 87/78 L 87/78 L Blood Pressure Mean 81 81 Pulse Ox 97 99 Oxygen Delivery Method Room Air Positive well nourished and well developed Constitutional Narrative: Patient is hypotensive most likely due to the A-fib with RVR. General Appearance ED: well developed; Negative for pallor HEENT Reports dry mucous membranes HEENT Narrative: Head is atraumatic normocephalic. Patient is wearing sunglasses. Nares patent. Mucosa is slightly dry. Uvula is midline. There is no deviation of the tongue with protrusion. Mouth ED: Yes dry mucous membranes Mouth: dry mucous membranes Eyes PERRL and EOMs intact bilaterally General Eye ED: Negative for pale conjunctiva or scleral icterus Neck no lymphadenopathy, supple and no JVD Chest Wall inspection of chest normal and palpation of chest normal Resp normal respiratory effort and clear to auscultation bilaterally Cardio Rate: tachycardic Rhythm: abnormal rhythm irregularly irregular GI normal to inspection, nondistended, normoactive bowel sounds, non-tender and non-distended; Negative for hepatosplenomegaly Inspection: abdominal distention Auscultation: normoactive bowel sounds Back/Spine no CVA tenderness Extremity normal to inspection General Extremety ED: Yes edema; Negative for tenderness General Extremity: edema Neuro oriented x3 and CN's II-XII intact bilaterally Sensorium / Orientation: alert Psych Mood & Affect: depressed Skin no rashes or lesions noted, no wounds and skin turgor normal General Skin Exam: Negative for jaundice or pallor MDM MDM MDM Narrative Medical decision making narrative: Patient is hypotensive due to his A-fib RVR and Dallin's phenomenon. After discussion with Dr. Palomo patient was treated with amiodarone 150 mg bolus. He will require possible admission. Dr. Palomo is presently seeing him. Reviewed his most recent admission. He was admitted for GI bleed. He will underwent EGD for iron deficiency anemia with recent GI bleed by Dr. Clarke. Patient had 1 column of grade 1 varices with no stigmata of recent bleeding. This was noted at 39 cm from the incisors. There was patchy mildly erythematous mucosa without bleeding noted in the stomach. Mild portal hypertension gastropathy was found as well. This involve the entire stomach. There were two 5 mm angiodysplastic lesions with bleeding. Coagulation for hemostasis using heater probe was successful. Patient was also seen by Dr. Palomo. His consult was reviewed. History & Record Review Discussion w/independent historian: Patient and Significant other Lab Data Attestation: I reviewed the patient's lab results. Lab results narrative: H&H 10.6 and 38.8 with an MCV of 97.6. This is patient's baseline. Labs: Laboratory Results - last 24 hr 04/18/25 04/18/25 15:26 15:45 WBC 10.8 RBC 3.36 L Hgb 10.6 L Hct 32.8 L MCV 97.6 H MCH 31.5 MCHC 32.3 RDW Std Deviation 64.9 H RDW Coeff of Brynn 18.6 H Plt Count 193 MPV 12.4 H Immature Gran % (Auto) 0.400 Neut % (Auto) 84.6 H Lymph % (Auto) 6.0 L Weakley % (Auto) 8.6 Eos % (Auto) 0.2 Baso % (Auto) 0.2 Absolute Neuts (auto) 9.1 H Absolute Lymphs (auto) 0.64 L Nucleated RBC % 0.9 Sodium 138 Potassium 3.0 L Chloride 92 L Carbon Dioxide 25.9 Anion Gap 20 H BUN 21 H Creatinine 4.34 H Estim Creat Clear Calc 16.59 L Est GFR (MDRD) Non-Af 14 L BUN/Creatinine Ratio 4.9 L Glucose 103 H Lactic Acid 3.0 H* Calcium 8.7 Troponin T High Sens 2860 H* D [place] II > 69[address] H Radiography Diagnostic Testing: Clinical Impression(s) from Imaging Studies Chest X-Ray 04/18/25 15:30 IMPRESSION: Progressive interval increase in right basilar airspace disease, albeit in the presence of relative hypoinflation. Differential diagnosis includes pneumonitis and atelectasis. No evidence of pulmonary edema. No pleural effusion is clearly seen. No pneumothorax is evident. Right upper chest surgical clips are again noted. The cardiomediastinal silhouette is unchanged. No interval osseous change is noted. Prominent bilateral glenohumeral joint arthritic changes are again present. Reading Location: [address] Management Discussion w/another healthcare provider: Hospitalist (Dr. Plata was made aware of conversation Dr. Palomo had with family. In light of patient being agreeable to plan of care he will be a full admit to PCU) and [place] Team Leader (Spoke with Dr. Palomo patient's erector operator regarding what best to do. Realizing there is risk benefits with treatment. After discussion patient was bolused with amiodarone 150 mg.) Treatment and Re-Evaluation :: Dr. Palomo did speak with patient and spouse regarding CODE STATUS. They wish to talk to children before making a decision. Patient is considering palliative care. Comments:: Patient cannot be anticoagulated because of the recent GI bleed and documented in the HPI narrative. Patient is presently on a baby aspirin and did take his aspirin today. Critical Care Time Critical Care Time: Yes Critical care time (excluding procedures): 30-74 minutes (34), Including time spent: (History, physical, documentation, independent rotation of labs results and x-ray, discussion with environmental consultant, treatment for A-fib RVR with Dallin's phenomenon and hypotension), Discussing w/Patient &/or Family/Vegetable Scullion (Discussion with patient and regarding CODE STATUS. Patient wants his heart restarted. He would want ventilatory support if short-term.), Discussing w/Consultants (Hospitalist and erector operator) and Arranging Admission or Transfer Discharge Plan Dx/Rx/DC Orders Clinical Impression: Atrial fibrillation with rapid ventricular response, Acute hypotension, History of stroke, Hepatitis C test positive, Left bundle branch block, Non-ST elevation NH (NSTEMI), Acidosis, lactic, Acute exacerbation of CHF (congestive heart failure), End-stage renal disease on hemodialysis, Anemia, macrocytic, DNR (do not resuscitate) discussion Disposition Disposition: Acute Care Hospital [facility]
[2025-04-18] MEDS: Amiodarone 150 MG in Dextrose 5%-Water (100mL Bag) 100 ML 600 MG IV BOLUS (15:48)
[2025-04-18 16:06] LABS: Absolute Lymphocyte Count 0.64 X10^3/uL (0.83-4.51); Absolute Neutrophil Count 9.1 X10^3/uL (2.0-7.7); Basophil# 0.02 X10^3/uL; Basophil% 0.2 % (0-1); Eosinophil# 0.02 X10^3/uL; Eosinophils% 0.2 % (0-5); Hematocrit 32.8 % (40-54); Hemoglobin 10.6 g/dL (13.0-16.5); Lymphocyte # 0.64 X10^3/ul (0.83-4.51); Mean Corp Hgb Conc 32.3 g/dL (32-36); Mean Corpuscular Hgb 31.5 pg (27.0-32.0); Mean Corpuscular Volume 97.6 fL (80-94); Mean Platelet Vol. 12.4 fl (6.2-12.0); Monocyte# 0.92 X10^3/uL; Monocyte% 8.6 % (0-10); NRBC Flagged by Analyzer 0.9 % (0-5); Neutrophil # 9.11 X10^3/uL (2.7-7.7); Neutrophil % 84.6 % (47-70); Platelet Count 193 K/mm3 (150-450); RBC Distribution Width CV 18.6 % (11.6-14.6); RBC Distribution Width SD 64.9 fl (35.1-43.9); Red Blood Count 3.36 M/mm3 (4.6-6.2); White Blood Count 10.8 K/mm3 (4.4-11.0)
[2025-04-18] MEDS: Midodrine HCl 5 MG Tablet 10 MG PO (16:12)
[2025-04-18 16:23] LABS: Anion Gap 20 (5-15); BUN 21 mg/dL (4-19); BUN/Creat Ratio 4.9 RATIO (10-20); Calcium,Total 8.7 mg/dL (7.6-11.0); Carbon Dioxide 25.9 mmol/L (21.0-32.0); Chloride 92 mmol/L (98-108); Creatinine, Serum 4.34 mg/dL (0.70-1.20); EST Glomerular Filtration Rate 14 (>60); Estimated Creatinine Clearance 16.59 ml/min (50-250); Glucose 103 mg/dL (70-99); Sodium Level 138 mmol/L (133-145)
[2025-04-18 16:35] LABS: Pro- Brain NATRIURETIC PEPTIDE > 70000 pg/mL (<=900)
--- NOTE | 2025-04-18 16:36 | PCM.CONS.C ---
Assessment & Plan Assessment/Plan (1) Atrial fibrillation with rapid ventricular response: PLAN: Patient heart rate remains in the 130 bpm range. He is being bolused with IV amiodarone. He will be reinstituted on 400 mg p.o. twice daily when he is hospitalized. If this is unsuccessful in controlling his rate I would add 0.25 IV digoxin as a one-time dose and then 0.125 q. OD to his medical regiment for rate control. We need to avoid any blood pressure modulating rate control drugs. We are limited in treatment options given the fact we cannot anticoagulate him due to his recurrent GI bleeds from angiodysplasia. 1 last option may be a transesophageal echo guided direct-current cardioversion. (2) HFrEF (heart failure with reduced ejection fraction): PLAN: Patient has a history of an EF in the 25% range. He is status post TAVR he does have an nonrevascularizable circumflex lesion. This is not amenable to revascularization due to the inability to have him on dual antiplatelet therapy. This had been controlled medically for several months without issue. (3) ESRD (end stage renal disease) on dialysis: PLAN: Patient received dialysis today. He reports to me his hemoglobin is 10.6 today in the ED.. (4) Hypotension: QUALIFIERS: Hypotension type: unspecified hypotension type Qualified Code(s): I95.9 - Hypotension, unspecified PLAN: Patient's blood pressure is depressed at 87 systolic. It was 103 at 1 point in time when I was evaluating him in the ED. The patient is mentating normally. I do not have any liver function test. (5) Recurrent gastrointestinal hemorrhage: PLAN: Patient has a history of angiodysplasia that is required multiple interventions by Dr. Ross. Most recent one was the first week of April 2025. (6) Elevated troponin: PLAN: Patient's troponin of 2800 is not unexpected in this given situation. The patient has a known nonrevascularizable lesion in his circumflex, he is hypotensive, he has a history of end-stage renal disease, he is tachycardic with atrial fibrillation with a rapid regular response, and he has known heart failure with reduced ejection fraction with EF of 25%. I would expect for him to have a bump in his troponin given this combination of clinical presentation. PLAN: Plan 1. Recommend continue aspirin 81 mg daily. 2. Will attempt to obtain rate control with a IV bolus of amiodarone followed by 400 mg twice daily p.o. 3. Heart rate remains above 120 would add 0.25 mg IV dig as a one-time dose followed by 0.125 every other day. 4. Would recommend palliative care if the family is agreeable. HPI Consult Data Date of Consult: 04/18/25 HPI Narrative HPI Narrative: BINDU DUMONT, is a 69 M who presents with a history of atrial fibrillation with rapid ventricular response. The patient was recently admitted the first week of April with recurrent GI bleeding and was noted to be in new onset atrial fibrillation. His blood pressures historically been difficult to control due to episodes of hypotension. We were able to switch him from Coreg to amiodarone and got relatively decent control of his heart rate in the hospital. However he continues to be more and more debilitated. When they went home he fell trying to get up to 2 steps into the house. The patient subsequently went to dialysis today he tolerated that but when he got home he could not get back in the house due to his debility. He was subsequently brought to the emergency department where he was found to be in atrial fibrillation with a heart rate of 130-140 bpm. He is being given an IV bolus of amiodarone. The patient did not take his amiodarone this morning prior to dialysis. The patient cannot be on oral anticoagulation due to recurrent GI bleeds. He has angiodysplasia. He has been treated multiple times by Dr. Ross with ablation techniques. Last hemoglobin was a little under 10 today in dialysis. We had discussed potential of cardioversion but I am really concerned about the risk of stroke given the fact that we cannot anticoagulate the patient and he has been in it for an unknown period of time at least since April 11. The long-term plan was to place the patient on p.o. amiodarone loading and then bring him back after 4 weeks with a transesophageal echocardiogram if it was felt his blood pressure would tolerate it and do a JUANCARLOS guided direct-current cardioversion. The patient also has a history of aortic stenosis status post TAVR. He also has a history of coronary disease and has a nonrevascularized circumflex lesion that we could not stent due to his recurrent GI bleeds on aspirin alone and he would not tolerate dual antiplatelet therapy. It was determined to treat this medically long-term. The patient's LV function is known to be depressed EF is estimated 25%. The patient remains on dialysis 3 days a week. He actually been placed on Midrin when he was hospitalized to assist with getting him through dialysis. The patient is troponin came back at 2800. This is really not unexpected given his history of nonrevascularized circumflex, his anemia, tachycardia, and his low blood pressure. I did speak to the patient and in detail about end-of-life issues and palliative care. [facility] Medical History (Updated 04/18/25 @ 16:[address] Aric Palomo MD) Elevated troponin ESRD (end stage renal disease) on dialysis Diverticulosis ESRD on hemodialysis Ischemic stroke Chronic anemia CVA (cerebral vascular accident) ESRD (end stage renal disease) Symptomatic anemia Carotid stenosis, right Acute anemia Black stool History of transcatheter aortic valve replacement (TAVR) Wears glasses History of steroid therapy History of renal disease Low iron Rheumatoid arthritis Back pain Migraine headache Dietary restriction History of diverticulitis History of ulceration Shortness of breath on exertion Lymphedema History of echocardiogram Cardiology follow-up encounter Hypertension Chronic renal failure Anemia DVT (deep venous thrombosis) End stage renal disease on dialysis Secondary hyperparathyroidism Generalized weakness Acute on chronic anemia Acute upper GI bleed History of end stage renal disease History of renal dialysis Dialysis patient Hepatitis Smoker Bursitis Problem with dialysis access Rectal bleeding Subclavian aneurysm Kidney failure due to vascular disorder Cardiac disease Rheumatoid vasculitis Rheumatoid aortitis Home Medications ?Medication ?Instructions ?Recorded ?Last Taken ?Type cyanocobalamin (vitamin B-12) 1,000 mcg PO DAILY supplement 01/12/24 04/18/25 History 1,000 mcg tablet (Vitamin B-12) acetaminophen 500 mg tablet 1,000 mg PO BID PAIN 12/02/24 04/09/25 History coenzyme Q10 200 mg capsule (Co 200 mg PO DAILY supplement 12/02/24 04/18/25 History Q-10) epoetin beta, methoxy peg See Rx Instructions subcut 12/02/24 04/08/25 History .COMPLEX PRN low blood counts sevelamer carbonate 800 mg tablet 800 mg PO TIDCM phosphate binder 12/27/24 04/18/25 History ascorbic acid (vitamin C) 500 mg 500 mg PO BID supplement #60 tabs 12/29/24 04/08/25 Rx tablet aspirin 81 mg chewable tablet 81 mg PO DINNER [employer] 01/19/25 04/08/25 History Held on 04/12/25. Instructions: Resume on 04/16/25. pantoprazole 40 mg tablet,delayed 40 mg PO BID stomach 30 days #60 02/10/25 04/18/25 Rx release (Protonix) tabs atorvastatin 40 mg tablet 40 mg PO QHS cholesterol #90 tabs 03/20/25 04/17/25 Rx psyllium husk 0.4 gram capsule 0.4 g PO DAILY bowls 03/23/25 04/08/25 History (Metamucil) octreotide,microspheres 30 mg 30 mg IM Q4W bowels #1 ea 03/27/25 03/28/25 Rx intramuscular susp, extended release (Sandostatin [place]) cholecalciferol (vitamin D3) 125 125 mcg PO TUTHSA supplement 04/09/25 04/08/25 History mcg (5,000 unit) capsule cinacalcet 90 mg tablet (Sensipar) 90 mg PO TUTHSA para thyroid 04/09/25 04/08/25 History hormone vitamin B complex-vitamin C-folic 1 tab PO SUMOWEFR vitamin 04/09/25 04/18/25 History acid 0.8 mg tablet (Dialyvite 800) amiodarone 200 mg tablet 200 mg PO BID #60 tabs 04/12/25 04/17/25 Rx midodrine 10 mg tablet 10 mg PO TID PRN low blood 04/12/25 Unknown Rx pressure. #20 tabs Allergy/AdvReac Type Severity Reaction Status Date / Time No Known Allergies Allergy Verified 04/18/25 14:53 Family History Father Heart disease Atrial fibrillation Mother , 88 Heart disease Myocardial infarction Brother Heart disease Myocardial infarction Surgical History History of cardiac catheterization Hx of colonoscopy with polypectomy History of esophagogastroduodenoscopy (EGD) Hx of arteriovenostomy for renal dialysis (~12/2019) Status post insertion of dialysis catheter (~11/2019) History of umbilical hernia s/p subclavian graft S/P knee surgery History of bicuspid aortic valve Social History adopted: No household members: spouse housing: house number of children: 2 current occupational status: retired pets and animals: No sexually active: No Smoking Status: Current every day smoker tobacco type: cigarettes Tobacco: How many years used: 40 quit status: has quit before alcohol intake: never substance use type: does not use caffeine: Yes (2) Type: coffee what type of physical activity do you participate in: aerobics and other details: leg excercises frequency: 3-4 times per week do you feel safe at home: Yes ROS Constitutional Constitutional: Reports as per HPI Eyes Eyes: Reports systems reviewed and no addt'l complaints, except as documented ENT HEENT: Reports systems reviewed and no addt'l complaints, except as documented Cardiovascular Cardiovascular: Reports as per HPI Respiratory/Chest Respiratory/Chest: Reports as per HPI Gastrointestinal Gastrointestinal: Reports as per HPI Genitourinary Genitourinary: Reports as per HPI Musculoskeletal Musculoskeletal: Reports as per HPI Integumentary Integumentary: Reports systems reviewed and no addt'l complaints, except as documented Neurologic Neurologic: Reports systems reviewed and no addt'l complaints, except as documented Psychiatric Psychiatric: Reports systems reviewed and no addt'l complaints, except as documented Endocrine Endocrinology: Reports systems reviewed and no addt'l complaints, except as documented Hematologic/Lymphatic Hematologic/Lymphatic: Reports as per HPI Allergic/Immunologic Allergic/Immunologic: Reports systems reviewed and no addt'l complaints, except as documented Physical Exam Const alert and oriented x3 HEENT normocephalic Eyes EOMs intact bilaterally Neck no JVD Resp normal respiratory effort and clear to auscultation bilaterally Cardio Rate: tachycardic Rhythm: abnormal rhythm irregularly irregular Heart Sounds: S1 normal, S2 normal and murmur systolic II/ soft mid left sternal border; Negative for click or gallop GI soft to palpation Extremity Extremity Narrative: Bilateral lower extremity lymphedema. Neuro Neuro Narrative: Alert and oriented x 3. Psych mental status grossly normal Risk Stratification Risk Stratification Applicable: Yes Age >/= 65: Yes >/= 3 CAD Risk Factors (HTN, HLD, DM, family hx of CAD, or current smoker): Yes Aspirin Use in the Past 7 Days: Yes Severe Angina (>/= episodes in 24 hours): No EKG ST Changes >/= 0.5mm: No Positive Cardiac Marker: Yes CHRISTA Risk Stratification Score: 4 CHRISTA % Risk: 20% Risk Charges/Coding Visit Charges Inpatient E&M: 90384 Init Hosp L3 Objective Data Vital Signs: Vital Signs Temp Pulse Resp BP Pulse Ox O2 Del Method 97.9 F 133 H 28 H 87/71 L 100 Room Air 04/18/25 14:53 04/18/25 16:07 04/18/25 15:57 04/18/25 16:07 04/18/25 16:07 04/18/25 15:57 Oxygen Delivery Method Room Air Weight: 190 lb 0.615 oz Body Mass Index (BMI) 27.2 Intake & Output: Intake and Output for Last 24 Hours 04/16/25 04/17/25 04/18/25 23:59 23:59 23:59 Intake Total 103 / 103 Balance 103 / 103 Lab / Micro Data Attestation: I reviewed the patient's lab results. 04/18/25 15:26 04/18/25 15:26 Labs: Laboratory Results - last 24 hr 04/18/25 15:26: WBC 10.8, RBC 3.36 L, Hgb 10.6 L, Hct 32.8 L, MCV 97.6 H, MCH 31.5, MCHC 32.3, RDW Std Deviation 64.9 H, RDW Coeff of Brynn 18.6 H, Plt Count 193, MPV 12.4 H, Immature Gran % (Auto) 0.400, Neut % (Auto) 84.6 H, Lymph % (Auto) 6.0 L, Coke % (Auto) 8.6, Eos % (Auto) 0.2, Baso % (Auto) 0.2, Absolute Neuts (auto) 9.1 H, Absolute Lymphs (auto) 0.64 L, Nucleated RBC % 0.9, Sodium 138, Potassium 3.0 L, Chloride 92 L, Carbon Dioxide 25.9, Anion Gap 20 H, BUN 21 H, Creatinine 4.34 H, Estim Creat Clear Calc 16.59 L, Est GFR (MDRD) Non-Af 14 L, BUN/Creatinine Ratio 4.9 L, Glucose 103 H, Calcium 8.7, [place] BNP II > [address]80 H Rhythm Strip Rhythm Strip: A-fib Rate: 130 Cardiology Labs/Tests 04/18/25 15:26: WBC 10.8, RBC 3.36 L, Hgb 10.6 L, Hct 32.8 L, MCV 97.6 H, MCH 31.5, MCHC 32.3, Plt Count 193, MPV 12.4 H, Immature Gran % (Auto) 0.400, Neut % (Auto) 84.6 H, Lymph % (Auto) 6.0 L, Coke % (Auto) 8.6, Eos % (Auto) 0.2, Baso % (Auto) 0.2, Absolute Neuts (auto) 9.1 H, Nucleated RBC % 0.9, Sodium 138, Potassium 3.0 L, Chloride 92 L, Carbon Dioxide 25.9, Anion Gap 20 H, BUN 21 H, Creatinine 4.34 H, Est GFR (MDRD) Non-Af 14 L, BUN/Creatinine Ratio 4.9 L, Glucose 103 H, Calcium 8.7 Rhythm: EKG: ECHO: Stress Test: Cardiac Cath: PCI: CT Surgery: Holter monitor: EPS: PPM: CXR: Chest CT Scan:
[2025-04-18 16:39] LABS: Troponin T High Sensitivity 2860 ng/L (<=22)
--- NOTE | 2025-04-18 17:11 | PCM.HP.STD ---
HPI - General General Date of Admission: 04/18/25 Date of Service: 04/18/25 Chief Complaint: Worsening weakness and dyspnea on exertion HPI Narrative BINDU DUMONT, is a 69 M who presented to [facility] ED on 04/18/2025 with worsening weakness and dyspnea on exertion. Patient has had multiple hospitalizations here recently. Most recent hospitalization was from 04/09-04/12 for a recurrent GI bleed. History also significant for recent new onset A-fib with RVR and ESRD on HD. He was found to be in A-fib with RVR on arrival to the ED today with rates in the 120s-130s. Notably he did have dialysis done today, is on a Thursday schedule. His blood pressure was running low in the 80s-90s systolic. He was seen urgently by Dr. Palomo with cardiology who recommended an amiodarone 150 mg bolus with reinitiation of amiodarone 40 mg twice daily while hospitalized. He noted that if this was unsuccessful, could trial digoxin. Importantly, Dr. Palomo discussed unfortunately patient has a poor long-term prognosis given his multiple medical issues. He noted that patient should strongly consider palliative care at this time. Hospitalist was contacted for admission and I saw him at the bedside shortly after Dr. Palomo. Patient is sharp mentally and noted that he was discouraged after being told that he needs to consider end-of-life care. However he, along with his and son at the bedside, do understand that he has significant medical issues that are unfortunately not going to improve. On further discussion with them, they were amenable to a hospice consult for further discussion on goals of care. Importantly, patient at this time does not think that he wants to stop dialysis but he is willing to discuss this further. He was also agreeable to changing his CODE STATUS from full code which it has been on every previous admission to DNR CCA, DO NOT INTUBATE. Will be admitted for further management. [facility] Medical History (Updated 04/18/25 @ 16:[address] Chago Rios MD) Elevated troponin ESRD (end stage renal disease) on dialysis Diverticulosis ESRD on hemodialysis Ischemic stroke Chronic anemia CVA (cerebral vascular accident) ESRD (end stage renal disease) Symptomatic anemia Carotid stenosis, right Acute anemia Black stool History of transcatheter aortic valve replacement (TAVR) Wears glasses History of steroid therapy History of renal disease Low iron Rheumatoid arthritis Back pain Migraine headache Dietary restriction History of diverticulitis History of ulceration Shortness of breath on exertion Lymphedema History of echocardiogram Cardiology follow-up encounter Hypertension Chronic renal failure Anemia DVT (deep venous thrombosis) End stage renal disease on dialysis Secondary hyperparathyroidism Generalized weakness Acute on chronic anemia Acute upper GI bleed History of end stage renal disease History of renal dialysis Dialysis patient Hepatitis Smoker Bursitis Problem with dialysis access Rectal bleeding Subclavian aneurysm Kidney failure due to vascular disorder Cardiac disease Rheumatoid vasculitis Rheumatoid aortitis Home Medications ?Medication ?Instructions ?Recorded ?Last Taken ?Type cyanocobalamin (vitamin B-12) 1,000 mcg PO DAILY supplement 01/12/24 04/18/25 History 1,000 mcg tablet (Vitamin B-12) acetaminophen 500 mg tablet 1,000 mg PO BID PAIN 12/02/24 04/09/25 History coenzyme Q10 200 mg capsule (Co 200 mg PO DAILY supplement 12/02/24 04/18/25 History Q-10) epoetin beta, methoxy peg See Rx Instructions subcut 12/02/24 04/08/25 History .COMPLEX PRN low blood counts sevelamer carbonate 800 mg tablet 800 mg PO TIDCM phosphate binder 12/27/24 04/18/25 History aspirin 81 mg chewable tablet 81 mg PO DINNER [employer] [facility] 01/19/25 04/08/25 History pantoprazole 40 mg tablet,delayed 40 mg PO BID stomach 30 days #60 02/10/25 04/18/25 Rx release (Protonix) tabs atorvastatin 40 mg tablet 40 mg PO QHS cholesterol #90 tabs 03/20/25 04/17/25 Rx psyllium husk 0.4 gram capsule 0.4 g PO DAILY bowls 03/23/25 04/08/25 History (Metamucil) octreotide,microspheres 30 mg 30 mg IM Q4W bowels #1 ea 03/27/25 03/28/25 Rx intramuscular susp, extended release (Sandostatin [place]) cholecalciferol (vitamin D3) 125 125 mcg PO TUTHSA supplement 04/09/25 04/08/25 History mcg (5,000 unit) capsule cinacalcet 90 mg tablet (Sensipar) 90 mg PO TUTHSA para thyroid 04/09/25 04/08/25 History hormone vitamin B complex-vitamin C-folic 1 tab PO SUMOWEFR vitamin 04/09/25 04/18/25 History acid 0.8 mg tablet (Dialyvite 800) amiodarone 200 mg tablet 200 mg PO BID #60 tabs 04/12/25 04/17/25 Rx midodrine 10 mg tablet 10 mg PO TID PRN low blood 04/12/25 Unknown Rx pressure. #20 tabs Allergy/AdvReac Type Severity Reaction Status Date / Time No Known Allergies Allergy Verified 04/18/25 14:53 Family History Father Heart disease Atrial fibrillation Mother , 88 Heart disease Myocardial infarction Brother Heart disease Myocardial infarction Surgical History History of cardiac catheterization Hx of colonoscopy with polypectomy History of esophagogastroduodenoscopy (EGD) Hx of arteriovenostomy for renal dialysis (~12/2019) Status post insertion of dialysis catheter (~11/2019) History of umbilical hernia s/p subclavian graft S/P knee surgery History of bicuspid aortic valve Social History adopted: No household members: spouse housing: house number of children: 2 current occupational status: retired pets and animals: No sexually active: No Smoking Status: Current every day smoker tobacco type: cigarettes Tobacco: How many years used: 40 quit status: has quit before alcohol intake: never substance use type: does not use caffeine: Yes (2) Type: coffee what type of physical activity do you participate in: aerobics and other details: leg excercises frequency: 3-4 times per week do you feel safe at home: Yes ROS Constitutional Constitutional: Reports fatigue and weakness; Denies chills or fever(s) Eyes Eyes: Denies change in vision Cardiovascular Cardiovascular: Reports dyspnea on exertion; Denies chest pain, edema, lightheadedness or palpitations Respiratory/Chest Respiratory/Chest: Reports cough, dyspnea, shortness of breath at rest and shortness of breath with exertion; Denies productive cough or wheezing Gastrointestinal Gastrointestinal: Denies abdominal pain Musculoskeletal Musculoskeletal: Denies arthralgias or myalgias Neurologic Neurologic: Denies dizziness, focal weakness or headache(s) Vital Signs Vital Signs Vital Signs: 04/18/25 14:53 04/18/25 15:25 04/18/25 15:29 Temperature 97.9 F Temperature Source Oral Pulse Rate 56 L Respiratory Rate 18 Respiratory Effort Short of Breath Short of Breath Blood Pressure 89/78 L Blood Pressure Mean 81 Pulse Ox 100 Oxygen Delivery Method Room Air 04/18/25 15:44 04/18/25 15:44 04/18/25 15:48 Temperature Temperature Source Pulse Rate 139 H 133 H Respiratory Rate 20 H 22 H Respiratory Effort Blood Pressure 103/84 H 103/84 H Blood Pressure Mean 90 90 Pulse Ox 100 Oxygen Delivery Method Room Air 04/18/25 15:57 04/18/25 16:07 04/18/25 16:49 Temperature Temperature Source Pulse Rate 136 H 133 H 122 H Respiratory Rate 28 H Respiratory Effort Blood Pressure 89/69 L 87/71 L 97/78 Blood Pressure Mean 75 76 84 Pulse Ox 100 100 Oxygen Delivery Method Room Air 04/18/25 17:00 Temperature Temperature Source Pulse Rate 128 H Respiratory Rate Respiratory Effort Blood Pressure 87/78 L Blood Pressure Mean 81 Pulse Ox 97 Oxygen Delivery Method Room Air Weight Weight: 86.2 kg Body Mass Index (BMI) 27.2 Physical Exam Const alert, oriented x3, no apparent distress and average body habitus Constitutional Narrative: Elderly male, chronically ill-appearing, fatigued appearing but otherwise sitting back comfortably in bed, conversing normally, in no acute distress. General Appearance: cooperative and comfortable HEENT normocephalic, head/scalp atraumatic, hearing grossly normal bilaterally, nasal mucous membranes and turbinates normal and moist oral mucous membranes Eyes PERRL, EOMs intact bilaterally and conjunctivae normal Neck full ROM Chest inspection of chest normal Resp normal respiratory effort and no use of accessory muscles Resp Narrative: Breathing comfortably on room air at rest. Mild bibasilar crackles noted but otherwise good air movement throughout with no wheezing noted. Cardio no murmurs and peripheral pulses 2+ throughout Cardio Narrative: A-fib with RVR. GI normal to inspection, nondistended, normoactive bowel sounds, soft to palpation, non-tender and non-distended Back/Spine normal ROM Extremity normal to inspection, full ROM and no pedal edema Skin no rashes or lesions noted Psych mental status grossly normal Results Lab / Micro Data 04/18/25 15:26 04/18/25 15:26 Labs: Laboratory Results - last 24 hr 04/18/25 15:26: WBC 10.8, RBC 3.36 L, Hgb 10.6 L, Hct 32.8 L, MCV 97.6 H, MCH 31.5, MCHC 32.3, RDW Std Deviation 64.9 H, RDW Coeff of Brynn 18.6 H, Plt Count 193, MPV 12.4 H, Immature Gran % (Auto) 0.400, Neut % (Auto) 84.6 H, Lymph % (Auto) 6.0 L, [place] % (Auto) 8.6, Eos % (Auto) 0.2, Baso % (Auto) 0.2, Absolute Neuts (auto) 9.1 H, Absolute Lymphs (auto) 0.64 L, Nucleated RBC % 0.9, Sodium 138, Potassium 3.0 L, Chloride 92 L, Carbon Dioxide 25.9, Anion Gap 20 H, BUN 21 H, Creatinine 4.34 H, Estim Creat Clear Calc 16.59 L, Est GFR (MDRD) Non-Af 14 L, BUN/Creatinine Ratio 4.9 L, Glucose 103 H, Calcium 8.7, Troponin T High Sens 2860 H* D, [place] > [address]179 H 04/18/25 15:45: Lactic Acid 3.0 H* Rhythm Strip Rhythm Strip: A-fib Rate: 130 Imaging Radiology Impression Chest X-Ray 04/18/25 15:30 IMPRESSION: Progressive interval increase in right basilar airspace disease, albeit in the presence of relative hypoinflation. Differential diagnosis includes pneumonitis and atelectasis. No evidence of pulmonary edema. No pleural effusion is clearly seen. No pneumothorax is evident. Right upper chest surgical clips are again noted. The cardiomediastinal silhouette is unchanged. No interval osseous change is noted. Prominent bilateral glenohumeral joint arthritic changes are again present. Reading Location: [address] Assessment & Plan Assessment/Plan (1) Atrial fibrillation with rapid ventricular response: PLAN: Plan Patient is a 69-year-old male who presented to [facility] ED on 04/18/2025 with worsening weakness and dyspnea on exertion. 1. A-fib with RVR with mild hypotension ? Admit under inpatient status to PCU. Cardiology consulted. In A-fib with RVR with rate to the 130s on admit and hypotensive to the 80s to 90 systolic. Suspect worsened by volume removal from dialysis today and hypokalemia as noted below. Per cardiology, given IV amiodarone bolus and will continue p.o. amiodarone 400 mg twice daily. Can add 0.25 IV digoxin one-time dose and then 0.125 p.o. digoxin daily to his regimen if needed for rate control. Also gave 500 cc fluid bolus and potassium replacement in the ED. Okay to continue baby aspirin but cannot do anticoagulation given recurrent GI bleeds that below. Monitor cardiac telemetry. Appreciate further cardiology recommendations. 2. Adult failure to thrive ? PT/OT/case management and hospice consulted. Patient has had multiple recent hospitalizations for recurrent GI bleeds in setting of angiodysplasias and poor clotting in setting of ESRD. Has also had multiple episodes of A-fib with RVR in setting of chronic HFrEF as well. Given all of these issues, it appears patient would be a reasonable candidate for palliative care and/or hospice services. Importantly patient does not think that he wishes to stop dialysis at this time but is open to further discussion on this. Appreciate further recommendations from hospice. 3. Recurrent GI bleeds ? See notes from recent discharge summary from 04/12 further details. In short, patient has history of angiodysplasias with frequent GI bleeds requiring intervention by Dr. Ross. No GI bleed on this admission and hemoglobin stable at 10. Continue home PPI twice daily. 4. ESRD on HD ? Nephrology consulted. On HD Thursday, last session on 04/18. Continue home midodrine as needed and phosphate binder. 5. Chronic HFrEF, history of bicuspid aortic valve s/p TAVR, hypertension, hyperlipidemia, recent CVA with right carotid artery stenosis ? Most recent echo in September 2024 showed EF 25%, moderate to severe global hypokinesis of the LV. Hypotensive on admission as noted above and I presume his underlying heart failure is contributing to this. Continue home aspirin and statin. Not on any antihypertensives at this time. 6. Hypokalemia ? Potassium 3.0 on admit. Magnesium 2.0. Replete potassium as needed. DVT prophylaxis: SCDs CODE STATUS: DNR CCA, DNI Expected disposition: TBD Total clinical time spent by myself addressing the patient's medical issues, reviewing all the data, and collaborating with patient's care team: 75 minutes. Charges/Coding Visit Charges Inpatient E&M: 41873 Init Hosp L3
--- NOTE | 2025-04-18 17:17 | ED.RN ---
Dr Rios notified of sepsis alert. Per Dr Rios Pt not septic and septic workup not needed.
[2025-04-18 18:55] LABS: Troponin T High Sens 2 HR 2616 ng/L (<=22)
[2025-04-18] MEDS: Lactated Ringers 1,000 ML 250 ML IV (19:07)
[2025-04-18] MEDS: Potassium Chloride Oral Tablet 20 MEQ 40 MEQ PO (19:08)
[2025-04-18 19:51] LABS: Reflex Lactate? Y
[2025-04-18 21:04] LABS: Lactic Acid 2.4 mmol/L (0.0-2.0); Troponin T High Sens 4 HR 2677 ng/L (<=22)
[2025-04-18] MEDS: Digoxin 250 MCG/ML Ampul IV (21:26)
[2025-04-18] MEDS: Amiodarone 200 MG Tablet 400 MG PO (21:26)
[2025-04-18] MEDS: Acetaminophen 325 MG Tablet 650 MG PO (21:29)
[2025-04-18] MEDS: Pantoprazole Sodium 40 MG Tablet PO (21:29)
[2025-04-18] MEDS: Atorvastatin Calcium 40 MG Tablet PO (21:29)
[2025-04-19] VITALS (17 sets, daily range): BP systolic 90–105; BP diastolic 62–90; PULSE 109–140; RESP 16–18; TEMP 36.6–37.1; O2SAT 94–99
[2025-04-19] MEDS: Amiodarone 200 MG Tablet PO (00:52)
[2025-04-19] MEDS: Midodrine HCl 5 MG Tablet 10 MG PO ×3 (06:33→16:27)
[2025-04-19 06:53] LABS: Hemoglobin 9.4 g/dL (13.0-16.5); Mean Corp Hgb Conc 31.3 g/dL (32-36); Mean Corpuscular Hgb 31.2 pg (27.0-32.0); Mean Corpuscular Volume 99.7 fL (80-94); Mean Platelet Vol. 12.9 fl (6.2-12.0); POSITIVE MORPHOLOGY YES; Platelet Count 177 K/mm3 (150-450); RBC Distribution Width SD 67.7 fl (35.1-43.9); Red Blood Count 3.01 M/mm3 (4.6-6.2); White Blood Count 8.4 K/mm3 (4.4-11.0)
[2025-04-19 06:57] LABS: Scan Indicated on CBC? Y/N YES- FLAGS NOTED
[2025-04-19 08:15] LABS: Anion Gap 17 (5-15); BUN 28 mg/dL (4-19); BUN/Creat Ratio 5.3 RATIO (10-20); Calcium,Total 8.8 mg/dL (7.6-11.0); Carbon Dioxide 25.4 mmol/L (21.0-32.0); Chloride 93 mmol/L (98-108); Creatinine, Serum 5.33 mg/dL (0.70-1.20); EST Glomerular Filtration Rate 11 (>60); Estimated Creatinine Clearance 13.51 ml/min (50-250); Glucose 79 mg/dL (70-99); Potassium 3.4 mmol/L (3.3-5.1); Sodium Level 136 mmol/L (133-145)
--- NOTE | 2025-04-19 08:23 | PN.HOSP_ITS ---
Reason for Visit Reason for Visit: Diagnoses Unspecified atrial fibrillation (04/18/25) Unspecified systolic (congestive) heart failure (04/18/25) Hypotension, unspecified (04/18/25) Gastrointestinal hemorrhage, unspecified (04/18/25) End stage renal disease (04/18/25) Other specified abnormal findings of blood chemistry (04/18/25) Dependence on renal dialysis (04/18/25) Subjective Subjective Complaining of pain in joints. Difficulty moving with walker due to pain in his shoulders. 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 Objective Data Objective Data Vital Signs: Vital Signs Temp Pulse Resp BP Pulse Ox O2 Del Method 36.6 C 109 H 16 98/80 95 Room Air 04/19/25 04:45 04/19/25 04:45 04/19/25 04:45 04/19/25 06:27 04/19/25 04:45 04/19/25 04:45 Oxygen Delivery Method Room Air Weight: 87 kg Body Mass Index (BMI) 27.5 Intake & Output: Intake and Output for Last 24 Hours 04/17/25 04/18/25 04/19/25 23:59 23:59 23:59 Intake Total 1103 / 1103 Balance 1103 / 1103 Lab / Micro Data 04/19/25 06:07 04/19/25 06:07 Labs: Laboratory Results - last 24 hr 04/18/25 15:26: WBC 10.8, RBC 3.36 L, Hgb 10.6 L, Hct 32.8 L, MCV 97.6 H, MCH 31.5, MCHC 32.3, RDW Std Deviation 64.9 H, RDW Coeff of Brynn 18.6 H, Plt Count 193, MPV 12.4 H, Immature Gran % (Auto) 0.400, Neut % (Auto) 84.6 H, Lymph % (Auto) 6.0 L, [place] % (Auto) 8.6, Eos % (Auto) 0.2, Baso % (Auto) 0.2, Absolute Neuts (auto) 9.1 H, Absolute Lymphs (auto) 0.64 L, Nucleated RBC % 0.9, Sodium 138, Potassium 3.0 L, Chloride 92 L, Carbon Dioxide 25.9, Anion Gap 20 H, BUN 21 H, Creatinine 4.34 H, Estim Creat Clear Calc 16.59 L, Est GFR (MDRD) Non-Af 14 L , BUN/Creatinine Ratio 4.9 L, Glucose 103 H, Calcium 8.7, Troponin T High Sens 2860 H* D, [place] > [address]8563 H 04/18/25 15:45: Lactic Acid 3.0 H* 04/18/25 17:35: Magnesium 2.0, Troponin T Hi Sens 2 Hr 2616 H* 04/18/25 20:19: Lactic Acid 2.4 H*, Troponin T Hi Sens 4Hr 2677 H* 04/19/25 06:07: WBC 8.4, RBC 3.01 L, Hgb 9.4 L, Hct 30.0 L, MCV 99.7 H, MCH 31.2, MCHC 31.3 L, RDW Std Deviation 67.7 H, RDW Coeff of Brynn 19.0 H, Plt Count 177, MPV 12.9 H, Differential Comment COMMENT, Sodium 136, Potassium 3.4, C hloride 93 L, Carbon Dioxide 25.4, Anion Gap 17 H, BUN 28 H, Creatinine 5.33 H, Estim Creat Clear Calc 13.51 L, Est GFR (MDRD) Non-Af 11 L, BUN/Creatinine Ratio 5.3 L, Glucose 79, Calcium 8.8 Radiography Diagnostic Testing: Radiology Impression Chest X-Ray 04/18/25 15:30 IMPRESSION: Progressive interval increase in right basilar airspace disease, albeit in the presence of relative hypoinflation. Differential diagnosis includes pneumonitis and atelectasis. No evidence of pulmonary edema. No pleural effusion is clearly seen. No pneumothorax is evident. Right upper chest surgical clips are again noted. The cardiomediastinal silhouette is unchanged. No interval osseous change is noted. Prominent bilateral glenohumeral joint arthritic changes are again present. Reading Location: [address] Rhythm Strip Rhythm Strip: A-fib Rate: 130 Physical Exam Const Constitutional Narrative: up in chair. no respiratory distress. Resp normal respiratory effort, no retractions, no use of accessory muscles and clear to auscultation bilaterally Cardio Cardio Narrative: irregularly irregular. GI normal to inspection, nondistended, normoactive bowel sounds, soft to palpation, non-tender, non-distended and hepatosplenomegaly Extremity General Extremity: edema Neuro Sensorium / Orientation: awake and alert Psych affect normal Assessment & Plan Assessment/Plan (1) Atrial fibrillation with rapid ventricular response: PLAN: Cardiology consult IV amiodarone bolus, and PO 400 BID Digoxin Not a candidate for anticoagulation given GI bleeds (2) Non-ST elevation MD (NSTEMI): PLAN: Trops 2860 to 2616 to 2677. Last admission was was 159 to 214 to 394 PT w known lesion in the circumflex that not been stented given h/o bleeding. Demand ischemia as well with the Afib w RVR and known cardiomyopathy with an EF 25%. PLAN: Plan GI bleeds: has had bleeding angiodysplasias and EGD on 04/10 showed grade I esophageal varices w no stigmata of recent bleeding. Erythematous mucosa in the stomach. Portal hypertensive gastropathy. 2 bleeding angiodysplastic lesions in the stomach, treated w heater probe. Stable. Pain: discussed with patient and family. We can be more aggressive with pain control and focus on quality of life. He is not open to hospice at this time, but open to palliative care. Will schedule acetaminophen, avoid NSAIDs, oxycodone. Chronic conditions: * ESRD on HD? Nephrology consulted. On HD Thursday. Last HD session on day prior to admission. Appreciate nephrology recommendations. * Recent CVA with right carotid artery stenosis, hypertension, hyperlipidemia, history of bicuspid aortic valve s/p TAVR? Recent hospitalization in early January for acute CVA. Was found to have severe right-sided carotid artery stenosis. Vascular surgery followed and noted that his severe anemia was likely contributing to the severe findings on carotid ultrasound and it was felt this was not the source of his stroke. Was suspected by neurology to be an ischemic stroke. Patient did not wear heart monitor to evaluate for A-fib. Continue home aspirin, statin, and Coreg. Holding home losartan in setting of mild hypotension on admission, resume as able. * HFrEF: ACEi/ARB, BB held given issues with hypotension. May restart at a later point as outpt. VTE prophylaxis: SCDs. Greater than 50 minutes spent at bedside discussing with the patient and family. Charges/Coding Visit Charges Inpatient E&M: 55942 Subs Hosp L3
[2025-04-19] MEDS: Cyanocobalamin 500 MCG Tablet 1000 MCG PO (08:35)
[2025-04-19] MEDS: Amiodarone 200 MG Tablet 400 MG PO ×2 (08:36→17:39)
[2025-04-19] MEDS: Digoxin 125 MCG Tablet PO (08:36)
[2025-04-19] MEDS: Pantoprazole Sodium 40 MG Tablet PO ×2 (08:36→21:20)
--- NOTE | 2025-04-19 10:01 | PCM.PN.CARD ---
Subjective Subjective Patient's sitting up in the bedside chair. He is eating breakfast. Patient reports that he is feeling better and he is a lot brighter than he was yesterday in the emergency department. The patient's heart rate continues to run in the 110?130 range. He remains in atrial fibrillation. Objective Data Vital Signs: Vital Signs Temp Pulse Resp BP Pulse Ox O2 Del Method 98.8 F 134 H 18 105/90 H 95 Room Air 04/19/25 08:32 04/19/25 08:36 04/19/25 08:32 04/19/25 08:36 04/19/25 08:32 04/19/25 08:32 Oxygen Delivery Method Room Air Weight: 191 lb 12.835 oz Body Mass Index (BMI) 27.5 Intake & Output: Intake and Output for Last 24 Hours 04/17/25 04/18/25 04/19/25 23:59 23:59 23:59 Intake Total 1103 / 1103 Balance 1103 / 1103 Lab / Micro Data 04/19/25 06:07 04/19/25 06:07 Labs: Laboratory Results - last 24 hr 04/18/25 15:26: WBC 10.8, RBC 3.36 L, Hgb 10.6 L, Hct 32.8 L, MCV 97.6 H, MCH 31.5, MCHC 32.3, RDW Std Deviation 64.9 H, RDW Coeff of Brynn 18.6 H, Plt Count 193, MPV 12.4 H, Immature Gran % (Auto) 0.400, Neut % (Auto) 84.6 H, Lymph % (Auto) 6.0 L, Perkins % (Auto) 8.6, Eos % (Auto) 0.2, Baso % (Auto) 0.2, Absolute Neuts (auto) 9.1 H, Absolute Lymphs (auto) 0.64 L, Nucleated RBC % 0.9, Sodium 138, Potassium 3.0 L, Chloride 92 L, Carbon Dioxide 25.9, Anion Gap 20 H, BUN 21 H, Creatinine 4.34 H, Estim Creat Clear Calc 16.59 L, Est GFR (MDRD) Non-Af 14 L, BUN/Creatinine Ratio 4.9 L, Glucose 103 H, Calcium 8.7, Troponin T High Sens 2860 H* D, [place] > 13161 H 04/18/25 15:45: Lactic Acid 3.0 H* 04/18/25 17:35: Magnesium 2.0, Troponin T Hi Sens 2 Hr 2616 H* 04/18/25 20:19: Lactic Acid 2.4 H*, Troponin T Hi Sens 4Hr 2677 H* 04/19/25 06:07: WBC 8.4, RBC 3.01 L, Hgb 9.4 L, Hct 30.0 L, MCV 99.7 H, MCH 31.2, MCHC 31.3 L, RDW Std Deviation 67.7 H, RDW Coeff of Brynn 19.0 H, Plt Count 177, MPV 12.9 H, Differential Comment COMMENT, Sodium 136, Potassium 3.4, Chloride 93 L, Carbon Dioxide 25.4, Anion Gap 17 H, BUN 28 H, Creatinine 5.33 H, Estim Creat Clear Calc 13.51 L, Est GFR (MDRD) Non-Af 11 L, BUN/Creatinine Ratio 5.3 L, Glucose 79, Calcium 8.8 Rhythm Strip Rhythm Strip: A-fib Rate: 120 Cardiology Labs/Tests 04/18/25 15:26: WBC 10.8, RBC 3.36 L, Hgb 10.6 L, Hct 32.8 L, MCV 97.6 H, MCH 31.5, MCHC 32.3, Plt Count 193, MPV 12.4 H, Immature Gran % (Auto) 0.400, Neut % (Auto) 84.6 H, Lymph % (Auto) 6.0 L, Perkins % (Auto) 8.6, Eos % (Auto) 0.2, Baso % (Auto) 0.2, Absolute Neuts (auto) 9.1 H, Nucleated RBC % 0.9, Sodium 138, Potassium 3.0 L, Chloride 92 L, Carbon Dioxide 25.9, Anion Gap 20 H, BUN 21 H, Creatinine 4.34 H, Est GFR (MDRD) Non-Af 14 L, BUN/Creatinine Ratio 4.9 L, Glucose 103 H, Calcium 8.7 04/18/25 15:45: Lactic Acid 3.0 H* 04/18/25 17:35: Magnesium 2.0 04/18/25 20:19: Lactic Acid 2.4 H* 04/19/25 06:07: WBC 8.4, RBC 3.01 L, Hgb 9.4 L, Hct 30.0 L, MCV 99.7 H, MCH 31.2, MCHC 31.3 L, Plt Count 177, MPV 12.9 H, Sodium 136, Potassium 3.4, Chloride 93 L, Carbon Dioxide 25.4, Anion Gap 17 H, BUN 28 H, Creatinine 5.33 H, Est GFR (MDRD) Non-Af 11 L, BUN/Creatinine Ratio 5.3 L, Glucose 79, Calcium 8.8 Rhythm: EKG: ECHO: Stress Test: Cardiac Cath: PCI: CT Surgery: Holter monitor: EPS: PPM: CXR: Chest CT Scan: Radiography Diagnostic Testing: Radiology Impression Chest X-Ray 04/18/25 15:30 IMPRESSION: Progressive interval increase in right basilar airspace disease, albeit in the presence of relative hypoinflation. Differential diagnosis includes pneumonitis and atelectasis. No evidence of pulmonary edema. No pleural effusion is clearly seen. No pneumothorax is evident. Right upper chest surgical clips are again noted. The cardiomediastinal silhouette is unchanged. No interval osseous change is noted. Prominent bilateral glenohumeral joint arthritic changes are again present. Reading Location: [address] Physical Exam Const alert and oriented x3 HEENT normocephalic Eyes EOMs intact bilaterally Neck no JVD Resp normal respiratory effort and clear to auscultation bilaterally Cardio Rate: tachycardic Rhythm: abnormal rhythm irregularly irregular Heart Sounds: S1 normal, S2 normal and murmur systolic II/ high-pitched left sternal border and right sternal border; Negative for click or gallop Extremity General Extremity: edema bilateral lower extremity (Consistent with known lymphedema.) Details: moderate Psych mental status grossly normal Assessment & Plan Assessment/Plan (1) Non-ST elevation ME (NSTEMI): PLAN: Patient's presentation and enzymes consistent with a non-STEMI. His symptoms have resolved the chest tightness that he was having yesterday. Patient remains in atrial fibrillation with a rapid ventricular response. I did have a long discussion with the patient and the family again today about palliative progression to hospice care in the future. Given the patient's debilitated state he cannot return to his home environment. He cannot get in and out of the house. He will need to go to [place] [facility] for rehab and/or extended care. (2) Atrial fibrillation with rapid ventricular response: PLAN: Patient's heart rate is 120 bpm range this morning it has been up in the 130s. He feels much better and we have given him 0.25 of dig and he has been read loaded with p.o. amiodarone at 400 mg twice daily. If the patient continues to have lactic acidosis and/or other signs or symptoms of hypoperfusion we may have to consider a JUANCARLOS directed direct-current cardioversion. I am really concerned about the risk of stroke given the fact that we are not able to anticoagulate the patient. (3) HFrEF (heart failure with reduced ejection fraction): PLAN: Patient's EF noted to be in the 25% range. He will continue on his current medical therapy. He is intolerant of almost all vasoactive drugs due to his profound hypotension. (4) ESRD (end stage renal disease) on dialysis: PLAN: Patient will continue with his dialysis per his protocol. (5) Hypotension: QUALIFIERS: Hypotension type: unspecified hypotension type Qualified Code(s): I95.9 - Hypotension, unspecified PLAN: Patient's blood pressure is 105 systolic this morning he is on midodrine 10 mg 3 times daily during the daytime. We have been avoiding all vasoactive meds if at all possible. The patient will continue on p.o. amiodarone loading for rate control I am reluctant to add Lanoxin given his end-stage renal disease. If we cannot control his rate better down in the 100?120 range consistently then may have to consider adding 0.125 every other day of Lanoxin. (6) Recurrent gastrointestinal hemorrhage: PLAN: Patient's hemoglobin dropped slightly overnight. He does have a history of angiodysplasia and was recently treated at his last hospitalization with cautery. PLAN: Plan 1. Continue to load the patient with p.o. amiodarone 400 mg twice daily. 2. If the patient is consistently above 125-130 bpm we will add Lanoxin 0.125 mg p.o. q. OD. 3. Recommend facilitate movement to [facility] extended-care facility for palliative care and potential transition to hospice. Charges/Coding Visit Charges Inpatient E&M: 61763 Subs Hosp L2
--- NOTE | 2025-04-19 12:15 | CON.PCM.RE_ITS ---
Assessment & Plan Assessment/Plan (1) End-stage renal disease on hemodialysis: PLAN: On hemodialysis Thursday, , Thursday schedule. Had dialysis yesterday. Volume removed was limited due to low blood pressure. Has midodrine on board for low blood pressures. No acute indications today. Will plan for dialysis tomorrow. A-fib with RVR. Cardiology note reviewed. Amiodarone, possibly digoxin. Okay with midodrine for low blood pressure. Anemia. Due to ESRD and GI bleed. Has had multiple hospitalizations due to GI bleed in the past. Closely monitor hemoglobin. Gets IV iron and HERMINIO for maintenance. HPI Consult Data Date of Consult: 04/19/25 HPI Narrative Reason for Consultation: esrd HPI Narrative: BINDU DUMONT, is a 69 M who presents To the hospital with hypotension, A-fib with RVR. Nephrology on consultation in view of ESRD. He is well-known to me, usually gets dialysis Thursday, , Thursday schedule. Recently has been struggling with GI bleed, extensive workup, finally settled on octreotide. No issues with congestive heart failure, low ejection fraction, A-fib with RVR. Presented with above complaints. Found to have elevated troponin, significantly elevated BNP, elevated lactate. Was seen by cardiology. Initially recommended hospice but overnight he did somewhat better, plan is to continue with medical treatment, options include amiodarone, possibly digoxin with midodrine for blood pressure. Family at bedside. He was not too happy about hearing about hospice consult. [facility] Medical History (Updated 04/18/25 @ 16:[address] Chago Rios MD) Elevated troponin ESRD (end stage renal disease) on dialysis Diverticulosis ESRD on hemodialysis Ischemic stroke Chronic anemia CVA (cerebral vascular accident) ESRD (end stage renal disease) Symptomatic anemia Carotid stenosis, right Acute anemia Black stool History of transcatheter aortic valve replacement (TAVR) Wears glasses History of steroid therapy History of renal disease Low iron Rheumatoid arthritis Back pain Migraine headache Dietary restriction History of diverticulitis History of ulceration Shortness of breath on exertion Lymphedema History of echocardiogram Cardiology follow-up encounter Hypertension Chronic renal failure Anemia DVT (deep venous thrombosis) End stage renal disease on dialysis Secondary hyperparathyroidism Generalized weakness Acute on chronic anemia Acute upper GI bleed History of end stage renal disease History of renal dialysis Dialysis patient Hepatitis Smoker Bursitis Problem with dialysis access Rectal bleeding Subclavian aneurysm Kidney failure due to vascular disorder Cardiac disease Rheumatoid vasculitis Rheumatoid aortitis Home Medications ?Medication ?Instructions ?Recorded ?Last Taken ?Type cyanocobalamin (vitamin B-12) 1,000 mcg PO DAILY suppl ement 01/12/24 04/18/25 History 1,000 mcg tablet (Vitamin B-12) acetaminophen 500 mg tablet 1,000 mg PO BID PAIN 12/0204/09/25 History coenzyme Q10 200 mg capsule (Co 200 mg PO DAILY supple ment 12/02/24 04/18/25 History Q-10) epoetin beta, methoxy peg See Rx Instructions subcut 0 12/02/24 04/08/25 History .COMPLEX PRN low blood counts sevelamer carbonate 800 mg tablet 800 mg PO TIDCM phos phate binder 12/27/24 04/18/25 History aspirin 81 mg chewable tablet 81 mg PO DINNER heart he alth 01/19/25 04/08/25 History pantoprazole 40 mg tablet,delayed 40 mg PO BID stomach 30 days #60 02/10/25 04/18/25 Rx release (Protonix) tabs atorvastatin 40 mg tablet 40 mg PO QHS cholesterol #90 tabs 03/20/25 04/17/25 Rx psyllium husk 0.4 gram capsule 0.4 g PO DAILY bowls 04/08/25 History (Metamucil) octreotide,microspheres 30 mg 30 mg IM Q4W bowels #1 e a 03/27/25 03/28/25 Rx intramuscular susp, extended release (Sandostatin [place]) cholecalciferol (vitamin D3) 125 125 mcg PO TUTHSA sup plement 04/09/25 04/08/25 History mcg (5,000 unit) capsule cinacalcet 90 mg tablet (Sensipar) 90 mg PO TUTHSA par a thyroid 04/09/25 04/08/25 History hormone vitamin B complex-vitamin C-folic 1 tab PO SUMOWEFR vi tamin 04/09/25 04/18/25 History acid 0.8 mg tablet (Dialyvite 800) amiodarone 200 mg tablet 200 mg PO BID #60 tabs 04/1204/17/25 Rx midodrine 10 mg tablet 10 mg PO TID PRN low blood 0 04/12/25 Unknown Rx pressure. #20 tabs Allergy/AdvReac Type Severity Reaction Status Date / Time No Known Allergies Allergy Verified 04/18/25 14:53 Family History Father Heart disease Atrial fibrillation Mother , 88 Heart disease Myocardial infarction Brother Heart disease Myocardial infarction Surgical History History of cardiac catheterization Hx of colonoscopy with polypectomy History of esophagogastroduodenoscopy (EGD) Hx of arteriovenostomy for renal dialysis (~12/2019) Status post insertion of dialysis catheter (~11/2019) History of umbilical hernia s/p subclavian graft S/P knee surgery History of bicuspid aortic valve Social History adopted: No household members: spouse housing: house number of children: 2 current occupational status: retired pets and animals: No sexually active: No Smoking Status: Current every day smoker tobacco type: cigarettes Tobacco: How many years used: 40 quit status: has quit before alcohol intake: never substance use type: does not use caffeine: Yes (2) Type: coffee what type of physical activity do you participate in: aerobics and other details: leg excercises frequency: 3-4 times per week do you feel safe at home: Yes ROS ROS Narrative negative except above Physical Exam Narrative Alert awake oriented x 3 no obvious distress no pallor no icterus no JVD s1s2 no murmurs lungs clear Lab / Micro Data 04/19/25 06:07 04/19/25 06:07 Labs: Laboratory Results - last 24 hr 04/18/25 15:26: WBC 10.8, RBC 3.36 L, Hgb 10.6 L, Hct 32.8 L, MCV 97.6 H, MCH 31.5, MCHC 32.3, RDW Std Deviation 64.9 H, RDW Coeff of Brynn 18.6 H, Plt Count 193, MPV 12.4 H, Immature Gran % (Auto) 0.400, Neut % (Auto) 84.6 H, Lymph % (Auto) 6.0 L, [place] % (Auto) 8.6, Eos % (Auto) 0.2, Baso % (Auto) 0.2, Absolute Neuts (auto) 9.1 H, Absolute Lymphs (auto) 0.64 L, Nucleated RBC % 0.9, Sodium 138, Potassium 3.0 L, Chloride 92 L, Carbon Dioxide 25.9, Anion Gap 20 H, BUN 21 H, Creatinine 4.34 H, Estim Creat Clear Calc 16.59 L, Est GFR (MDRD) Non-Af 14 L , BUN/Creatinine Ratio 4.9 L, Glucose 103 H, Calcium 8.7, Troponin T High Sens 2860 H* D, NT pro BNP II > 38816 H 04/18/25 15:45: Lactic Acid 3.0 H* 04/18/25 17:35: Magnesium 2.0, Troponin T Hi Sens 2 Hr 2616 H* 04/18/25 20:19: Lactic Acid 2.4 H*, Troponin T Hi Sens 4Hr 2677 H* 04/19/25 06:07: WBC 8.4, RBC 3.01 L, Hgb 9.4 L, Hct 30.0 L, MCV 99.7 H, MCH 31.2, MCHC 31.3 L, RDW Std Deviation 67.7 H, RDW Coeff of Brynn 19.0 H, Plt Count 177, MPV 12.9 H, Differential Comment COMMENT, Sodium 136, Potassium 3.4, C hloride 93 L, Carbon Dioxide 25.4, Anion Gap 17 H, BUN 28 H, Creatinine 5.33 H, Estim Creat Clear Calc 13.51 L, Est GFR (MDRD) Non-Af 11 L, BUN/Creatinine Ratio 5.3 L, Glucose 79, Calcium 8.8 Rhythm Strip Rhythm Strip: A-fib Rate: 120 Imaging Radiology Impression Chest X-Ray 04/18/25 15:30 IMPRESSION: Progressive interval increase in right basilar airspace disease, albeit in the presence of relative hypoinflation. Differential diagnosis includes pneumonitis and atelectasis. No evidence of pulmonary edema. No pleural effusion is clearly seen. No pneumothorax is evident. Right upper chest surgical clips are again noted. The cardiomediastinal silhouette is unchanged. No interval osseous change is noted. Prominent bilateral glenohumeral joint arthritic changes are again present. Reading Location: [address]
--- NOTE | 2025-04-19 13:25 | CHAPLAIN ---
Type of Pastoral Visit _x__ Initial Visit ___ Follow-up Visit ___ On-call Visit ___ General Patient Visit ___ Spiritual Assessment ___ Family Conference ___ Bereavement ___ Rapid Response ___ Code Blue ___ Other (describe below) Pastoral Care Referral From _x__ Patient _x__ Family ___ Nurse ___ Physician ___ Agricultural Engineer ___ Safe Technician ___ Other (describe below) Sacrament/Intervention _x__ Active listening ___ Anointing ___ Protestant ___ Bereavement ___ Communion _x__ Mee exploration ___ _x__ Life review _x__ Prayer ___ Reconciliation ___ Sacrament of Sick _x__ Supportive presence ___ Wedding ___ Other (describe below) Pastoral Comments patient has been seen numerous times in recent months for multiple health issues; spouse (Rohini) is present in the room; pt wants to speak openly and ask questions; pt reviews the pronouncement of the doctors from his admission last evening; doctors recommended Palliative or Hospice Care as no more can be done for me; pt states that he had improvement over the night and that this morning doctors are recommending rehab and an attempt to regain strength and some measure of health; pt admits that this is somewhat confusing but he is happy with the turn around today; pt had called family members to give them the news; pt asks this auto body repairman about and graveside services planning; pt states that even with better news this morning he still knows that I don't have much time left; pt acknowledges that he is having questions, distress, over his spiritual life and future; pt is asked to describe; pt gives some life and advent background and speaks of his uncertainty to know what will happen when he dies; pt is given perspective from scripture and answers to process; pt is tearful and states that this is so helpful, thank you, and I will have to ponder on this more; is expressive of appreciation and says this is what you have been wanting, and this is how your father has been praying; pt acknowledges this as truthful; pt is expressive of thanks for time and processing of spiritual issues; will follow up as pt is available
--- NOTE | 2025-04-19 14:27 | CASEMGMT ---
REBECCA REDMOND Readmission Note: Pt hospitalization from 04/09-04/12 for a recurrent GI bleed. Pt also had recent new onset A-fib with RVR and ESRD on HD. He was found to be in A-fib with RVR on arrival to the ED today with rates in the 120s-130s. Pt has dialysis done on a Thursday schedule. Pt was DC'd home with family support. Pt states he bacame increasingly weaker at home and was unable to get into his house. He presented to [facility] ED on 04/18/2025 with worsening weakness and dyspnea on exertion. Pt states he is taking all medications as prescribed. Pt requesting to go to [facility] as first choice or [facility] T[facility] unit a second choice. REBECCA REDMOND notified ANDERSON.
--- NOTE | 2025-04-19 14:45 | CASEMGMT ---
ANDERSON was informed by RN NYLA that patient would like to go to [facility] for short term rehab. Patient's second choice would be [facility]. ANDERSON asked [facility] d/c strategy planning consultant to please send a referral to [facility]. Plan: d/c to SNF, possibly [facility] pending acceptance. Minnie Alvarenga [employer]
[2025-04-19] MEDS: oxyCODONE 5 MG Tablet PO (15:18)
[2025-04-19] MEDS: Acetaminophen 500 MG Tablet 1000 MG PO ×2 (15:19→21:20)
--- NOTE | 2025-04-19 15:52 | CASEMGMT ---
[facility] has accepted patient. will notify patient. Plan: d/c to [facility] when medically ready. Minnie DURON
--- NOTE | 2025-04-19 15:55 | CASEMGMT ---
ANDERSON let patient know. Patient said he will let his know when she comes back. Minnie DURON
[2025-04-19] MEDS: Aspirin 81 MG TAB.CHEW PO (16:28)
[2025-04-19] MEDS: Atorvastatin Calcium 40 MG Tablet PO (21:20)
[2025-04-19] MEDS: Digoxin 250 MCG/ML Ampul 125 MCG IV (22:55)
[2025-04-20] VITALS (14 sets, daily range): BP systolic 97–245; BP diastolic 46–102; PULSE 88–128; RESP 14–16; TEMP 36.4–36.7; O2SAT 93–99; BMI 27.4; BMI 26.6
[2025-04-20] MEDS: oxyCODONE 5 MG Tablet PO ×2 (06:18→13:09)
[2025-04-20] MEDS: Acetaminophen 500 MG Tablet 1000 MG PO ×2 (06:18→13:08)
[2025-04-20] MEDS: Midodrine HCl 5 MG Tablet 10 MG PO ×2 (06:18→13:09)
[2025-04-20] MEDS: 0.9% Saline Lock 10 ML Syringe IV (06:19)
[2025-04-20 07:17] LABS: Absolute Lymphocyte Count 0.68 X10^3/uL (0.83-4.51); Absolute Neutrophil Count 6.8 X10^3/uL (2.0-7.7); Basophil# 0.01 X10^3/uL; Basophil% 0.1 % (0-1); Eosinophil# 0.07 X10^3/uL; Eosinophils% 0.8 % (0-5); Hemoglobin 9.9 g/dL (13.0-16.5); Lymphocyte # 0.68 X10^3/ul (0.83-4.51); Mean Corp Hgb Conc 30.9 g/dL (32-36); Mean Corpuscular Hgb 30.7 pg (27.0-32.0); Mean Corpuscular Volume 99.4 fL (80-94); Mean Platelet Vol. 12.5 fl (6.2-12.0); Monocyte# 0.91 X10^3/uL; Monocyte% 10.7 % (0-10); NRBC Flagged by Analyzer 0.5 % (0-5); Neutrophil % 79.8 % (47-70); POSITIVE MORPHOLOGY YES; Platelet Count 184 K/mm3 (150-450); RBC Distribution Width CV 18.6 % (11.6-14.6); RBC Distribution Width SD 67.8 fl (35.1-43.9); Red Blood Count 3.22 M/mm3 (4.6-6.2); White Blood Count 8.5 K/mm3 (4.4-11.0)
[2025-04-20 07:27] LABS: Differential Indicated SCAN CRITERIA MET
[2025-04-20 07:40] LABS: Anion Gap 17 (5-15); BUN 40 mg/dL (4-19); BUN/Creat Ratio 5.8 RATIO (10-20); Calcium,Total 8.9 mg/dL (7.6-11.0); Carbon Dioxide 26.7 mmol/L (21.0-32.0); Chloride 94 mmol/L (98-108); Creatinine, Serum 6.97 mg/dL (0.70-1.20); EST Glomerular Filtration Rate 8 (>60); Estimated Creatinine Clearance 10.33 ml/min (50-250); Glucose 86 mg/dL (70-99); Potassium 3.5 mmol/L (3.3-5.1); Sodium Level 138 mmol/L (133-145)
--- NOTE | 2025-04-20 07:52 | PN.CARD_ITS ---
Subjective Subjective Patient is upbeat this morning as his request to move to [facility] been approved by his insurance company. He is just awaiting transfer. Heart rate in last evening did go up in the 130 range. We gave him an extra dose of 0.125 mg of digoxin IV and his heart rate from midnight to this morning early was 88-1 04. Now it is 120 on telemetry with occasional PVCs. The patient reports that he feels much better he denies any shortness of breath he is extremely weak. Objective Data Vital Signs: Vital Signs Temp Pulse Resp BP Pulse Ox O2 Del Method 97.5 F L 88 16 104/72 97 Room Air 04/20/25 06:04 04/20/25 06:04 04/20/25 06:04 04/20/25 06:04 04/20/25 06:04 04/20/25 06:04 Oxygen Delivery Method Room Air Weight: 191 lb 12.835 oz Body Mass Index (BMI) 27.5 Intake & Output: Intake and Output for Last 24 Hours 04/18/25 04/19/25 04/20/25 23:59 23:59 23:59 Intake Total 1103 / 1103 900 / 900 Balance 1103 / 1103 900 / 900 Lab / Micro Data Attestation: I reviewed the patient's lab results. 04/20/25 06:52 04/20/25 06:52 Labs: Laboratory Results - last 24 hr 04/19/25 06:07: Sodium 136, Potassium 3.4, Chloride 93 L, Carbon Dioxide 25.4, A nion Gap 17 H, BUN 28 H, Creatinine 5.33 H, Estim Creat Clear Calc 13.51 L, Est GFR (MDRD) Non-Af 11 L, BUN/Creatinine Ratio 5.3 L, Glucose 79, Calcium 8.8 04/20/25 06:52: WBC 8.5, RBC 3.22 L, Hgb 9.9 L, Hct 32.0 L, MCV 99.4 H, MCH 30.7, MCHC 30.9 L, RDW Std Deviation 67.8 H, RDW Coeff of Brynn 18.6 H, Plt Count 184, MPV 12.5 H, Immature Gran % (Auto) 0.600, Neut % (Auto) 79.8 H, Lymph % (Auto) 8.0 L, Lucas % (Auto) 10.7 H, Eos % (Auto) 0.8, Baso % (Auto) 0.1, Absolute Neuts (auto) 6.8, Absolute Lymphs (auto) 0.68 L, Nucleated RBC % 0.5, Sodium 138, Potassium 3.5, Chloride 94 L, Carbon Dioxide 26.7, Anion Gap 17 H, B UN 40 H, Creatinine 6.97 H, Estim Creat Clear Calc 10.33 L, Est GFR (MDRD) Non- Af 8 L, BUN/Creatinine Ratio 5.8 L, Glucose 86, Calcium 8.9 Rhythm Strip Rhythm Strip: A-fib Rate: 120 Cardiology Labs/Tests 04/19/25 06:07: Sodium 136, Potassium 3.4, Chloride 93 L, Carbon Dioxide 25.4, A nion Gap 17 H, BUN 28 H, Creatinine 5.33 H, Est GFR (MDRD) Non-Af 11 L, B UN/Creatinine Ratio 5.3 L, Glucose 79, Calcium 8.8 04/20/25 06:52: WBC 8.5, RBC 3.22 L, Hgb 9.9 L, Hct 32.0 L, MCV 99.4 H, MCH 30.7, MCHC 30.9 L, Plt Count 184, MPV 12.5 H, Immature Gran % (Auto) 0.600, Neut % (Auto) 79.8 H, Lymph % (Auto) 8.0 L, Lucas % (Auto) 10.7 H, Eos % (Auto) 0.8, Baso % (Auto) 0.1, Absolute Neuts (auto) 6.8, Nucleated RBC % 0.5, Sodium 138, Potassium 3.5, Chloride 94 L, Carbon Dioxide 26.7, Anion Gap 17 H, BUN 40 H, C reatinine 6.97 H, Est GFR (MDRD) Non-Af 8 L, BUN/Creatinine Ratio 5.8 L, Glucose 86, Calcium 8.9 Rhythm: EKG: ECHO: Stress Test: Cardiac Cath: PCI: CT Surgery: Holter monitor: EPS: PPM: CXR: Chest CT Scan: Physical Exam Const alert and oriented x3 HEENT normocephalic Eyes EOMs intact bilaterally Neck no JVD Neck Narrative: No JVD at 90 degrees seated in a chair at the bedside Resp normal respiratory effort Auscultation: crackles bilateral base Cardio Rate: tachycardic Rhythm: abnormal rhythm regularly irregular Heart Sounds: S1 normal, S2 normal and murmur systolic II/ soft left sternal border and right sternal border; Negative for click or gallop Extremity General Extremity: edema bilateral lower extremity (Lymphedema) Details: moderate Neuro Neuro Narrative: Alert and oriented x 3 Psych mental status grossly normal Assessment & Plan Assessment/Plan (1) Atrial fibrillation with rapid ventricular response: PLAN: Patient's heart rate continues to be episodically elevated. Given his overall situation with severe LV dysfunction, his valvular heart disease, his recurring GI bleeds due to angiodysplasia, or inability to anticoagulate him, and his continued struggles with hypotension, I do not feel that we have much to offer other than attempted rate control with a combination of amiodarone and Lanoxin. I am very concerned that trying to cardiovert the patient especially now that his blood pressure is somewhat stabilized at the 90?100 systolic range and he continues to mentate normally. He is not having any overt failure symptoms at this point in time. Will continue with amiodarone 200 mg twice daily once he is transferred to [place] and Lanoxin should be decreased to 0.125 mg Thursday given his end-stage renal disease. He should have a dig level checked in 2 weeks. It should be explicitly informed to the [place] staff that his expected heart rate would be between 90 and 130 bpm would be acceptable. If it is over 140 and then Carlos may need to add additional Lanoxin to his medical regimen. (2) HFrEF (heart failure with reduced ejection fraction): PLAN: Patient has a known ejection fraction of 25%. He actually had a bump in his enzymes when he came in consistent with a possible ischemic event. At this point in time we are extremely limited with any afterload reduction therapy due to his hypotension and his volume is controlled with his dialysis. (3) End-stage renal disease on hemodialysis: PLAN: Patient remains on renal replacement therapy with hemodialysis on Thursday and Saturdays. (4) Angiodysplasia of stomach and duodenum: PLAN: Patient's hemoglobin has remained stable during his hospitalization his hemoglobin today is 9.9. He has been followed by Dr. Ross (5) Hypotension: QUALIFIERS: Hypotension type: unspecified hypotension type Q ualified Code(s): I95.9 - Hypotension, unspecified PLAN: The patient's blood pressure remains a constant issue he is on midodrine to assist with his dialysis. He is intolerant of any vasoactive depressant drugs we cannot treat him with beta-ivelisse or CHELA or ARB therapy or any afterload reduction therapy at this time. Given this and his end-stage renal disease and end-stage cardiomyopathy he has been designated at his request and family's agreement to be DNR with no intubation. (6) DNR (do not resuscitate) discussion: PLAN: Patient and family made this decision on this hospitalization. The patient will be discharged to [facility] as palliative care with an expectation of transitioning to hospice. PLAN: Plan 1. Will continue Lanoxin 0.125 mg daily until discharge. Once the patient is discharged this should be dropped down to Thursday giving his end-stage renal disease. 2. The patient should have a dig level done in 2 weeks. 3. The patient should follow-up in the [facility] in approximately a month after he is transferred to [place]. I did tell him given his palliative care if he is feeling fine and there is no need for medication adjustments then he can cancel that appointment and just follow-up on an as-needed basis. 4. From a cardiovascular standpoint the patient could be transferred to [place] with a strict understanding that his heart rate is going to be in the 100-130 bpm range consistently in his atrial fibrillation. 5. Cardiology will sign off if further assistance is needed please call me directly. Charges/Coding Visit Charges Inpatient E&M: 98266 [facility] L3
--- NOTE | 2025-04-20 08:18 | PN.HOSP_ITS ---
Reason for Visit Reason for Visit: Diagnoses Non-ST elevation (NSTEMI) myocardial infarction (04/18/25) Unspecified atrial fibrillation (04/18/25) Unspecified systolic (congestive) heart failure (04/18/25) Hypotension, unspecified (04/18/25) Angiodysplasia of stomach and duodenum without bleeding (04/18/25) Gastrointestinal hemorrhage, unspecified (04/18/25) End stage renal disease (04/18/25) Other specified abnormal findings of blood chemistry (04/18/25) Other specified counseling (04/18/25) Dependence on renal dialysis (04/18/25) Subjective Subjective Feels well. No issues overnight. Objective Data Objective Data Vital Signs: Vital Signs Temp Pulse Resp BP Pulse Ox O2 Del Method 36.4 C L 88 16 104/72 97 Room Air 04/20/25 06:04 04/20/25 06:04 04/20/25 06:04 04/20/25 06:04 04/20/25 06:04 04/20/25 06:04 Oxygen Delivery Method Room Air Weight: 87 kg Body Mass Index (BMI) 27.5 Intake & Output: Intake and Output for Last 24 Hours 04/18/25 04/19/25 04/20/25 23:59 23:59 23:59 Intake Total 1103 / 1103 900 / 900 Balance 1103 / 1103 900 / 900 Lab / Micro Data 04/20/25 06:52 04/20/25 06:52 Labs: Laboratory Results - last 24 hr 04/20/25 06:52: WBC 8.5, RBC 3.22 L, Hgb 9.9 L, Hct 32.0 L, MCV 99.4 H, MCH 30.7, MCHC 30.9 L, RDW Std Deviation 67.8 H, RDW Coeff of Brynn 18.6 H, Plt Count 184, MPV 12.5 H, Immature Gran % (Auto) 0.600, Neut % (Auto) 79.8 H, Lymph % (Auto) 8.0 L, [place] % (Auto) 10.7 H, Eos % (Auto) 0.8, Baso % (Auto) 0.1, Absolute Neuts (auto) 6.8, Absolute Lymphs (auto) 0.68 L, Nucleated RBC % 0.5, Sodium 138, Potassium 3.5, Chloride 94 L, Carbon Dioxide 26.7, Anion Gap 17 H, B UN 40 H, Creatinine 6.97 H, Estim Creat Clear Calc 10.33 L, Est GFR (MDRD) Non- Af 8 L, BUN/Creatinine Ratio 5.8 L, Glucose 86, Calcium 8.9 Rhythm Strip Rhythm Strip: A-fib Rate: 120 Physical Exam Const alert and no apparent distress Constitutional Narrative: seen on HD. Resp normal respiratory effort and no retractions Cardio Cardio Narrative: irregular. GI normal to inspection, nondistended, normoactive bowel sounds and soft to palpation Extremity normal to inspection Assessment & Plan Assessment/Plan (1) Atrial fibrillation with rapid ventricular response: PLAN: IV amiodarone bolus, and PO 200 BID Digoxin Not a candidate for anticoagulation given GI bleeds Per cardiology: digoxin 0.125 QMWF and check digoxin level in 2 weeks. Follow up with [facility] in 2 weeks. A HR of 100-130 will be acceptable. (2) Non-ST elevation DE (NSTEMI): PLAN: Trops 2860 to 2616 to 2677. Last admission was was 159 to 214 to 394 PT w known lesion in the circumflex that not been stented given h/o bleeding. Demand ischemia as well with the Afib w RVR and known cardiomyopathy with an EF 25%. PLAN: Plan GI bleeds: has had bleeding angiodysplasias and EGD on 04/10 showed grade I esophageal varices w no stigmata of recent bleeding. Erythematous mucosa in the stomach. Portal hypertensive gastropathy. 2 bleeding angiodysplastic lesions in the stomach, treated w heater probe. Stable. Pain: discussed with patient and family. We can be more aggressive with pain control and focus on quality of life. He is not open to hospice at this time, but open to palliative care. Will schedule acetaminophen, avoid NSAIDs, oxycodone. Chronic conditions: * ESRD on HD? Nephrology consulted. On HD Thursday. Last HD session on day prior to admission. Appreciate nephrology recommendations. * Recent CVA with right carotid artery stenosis, hypertension, hyperlipidemia, history of bicuspid aortic valve s/p TAVR? Recent hospitalization in early January for acute CVA. Was found to have severe right-sided carotid artery stenosis. Vascular surgery followed and noted that his severe anemia was likely contributing to the severe findings on carotid ultrasound and it was felt this was not the source of his stroke. Was suspected by neurology to be an ischemic stroke. Patient did not wear heart monitor to evaluate for A-fib. Continue home aspirin, statin, and Coreg. Holding home losartan in setting of mild hypotension on admission, resume as able. * HFrEF: ACEi/ARB, BB held given issues with hypotension. May restart at a later point as outpt. VTE prophylaxis: SCDs.
[2025-04-20 08:50] LABS: Anisocytosis 2+
--- NOTE | 2025-04-20 09:51 | PCM.TXEXTCAR ---
Diet Diet Order/Speech Therapy: INPATIENT Hospital Diet / Speech Therapy Order(s) 04/18/25 18:31 Diet: Cardiac - Heart Healthy Food consistency:: Regular Liquid Consistency:: Regular/Thin Routine Orders/Code Status Code Status: DNRCC-A (no intubaton) DC O2, CPAP, BIPAP needs Home O2 Discharge instructions: No Therapies Weight Bearing: Full weight bearing Physical Therapy: Eval and Treat Occupational Therapy: Eval and Treat Problem/Diagnosis (1) Atrial fibrillation with rapid ventricular response: Status: Acute Code(s): I48.91 - Unspecified atrial fibrillation Plan: IV amiodarone bolus, and PO 200 BID Digoxin Not a candidate for anticoagulation given GI bleeds Per cardiology: digoxin 0.125 QMWF and check digoxin level in 2 weeks. Follow up with [facility] in 2 weeks. A HR of 100-130 will be acceptable. (2) Non-ST elevation [place] (NSTEMI): Status: Acute Code(s): I21.4 - Non-ST elevation (NSTEMI) myocardial infarction Plan: Trops 2860 to 2616 to 2677. Last admission was was 159 to 214 to 394 PT w known lesion in the circumflex that not been stented given h/o bleeding. Demand ischemia as well with the Afib w RVR and known cardiomyopathy with an EF 25%. Plan GI bleeds: has had bleeding angiodysplasias and EGD on 04/10 showed grade I esophageal varices w no stigmata of recent bleeding. Erythematous mucosa in the stomach. Portal hypertensive gastropathy. 2 bleeding angiodysplastic lesions in the stomach, treated w heater probe. Stable. Pain: discussed with patient and family. We can be more aggressive with pain control and focus on quality of life. He is not open to hospice at this time, but open to palliative care. Will schedule acetaminophen, avoid NSAIDs, oxycodone. Chronic conditions: ESRD on HD? Nephrology consulted. On HD Thursday. Last HD session on day prior to admission. Appreciate nephrology recommendations. Recent CVA with right carotid artery stenosis, hypertension, hyperlipidemia, history of bicuspid aortic valve s/p TAVR? Recent hospitalization in early January for acute CVA. Was found to have severe right-sided carotid artery stenosis. Vascular surgery followed and noted that his severe anemia was likely contributing to the severe findings on carotid ultrasound and it was felt this was not the source of his stroke. Was suspected by neurology to be an ischemic stroke. Patient did not wear heart monitor to evaluate for A-fib. Continue home aspirin, statin, and Coreg. Holding home losartan in setting of mild hypotension on admission, resume as able. HFrEF: ACEi/ARB, BB held given issues with hypotension. May restart at a later point as outpt. VTE prophylaxis: SCDs. Allergies/Procedures Done in Hospital Allergies No Known Allergies Allergy (Verified 04/18/25 14:53) Procedures: None Type of Care/Length of Stay Estimated LOS: Convalescent Care Less Than 30 days Type of Care Needed: Skilled Rehab Potential: Fair Prognosis: Fair Additional Orders/Day of Discharge Day of Discharge: 04/20/25 Follow Up Care Please follow up with your Primary Care Physician in: 2 weeks Please Follow Up With: Aric Palomo MD When: 1 month [facility] When: Thursday Discharge Plan Admission Admit Date/Time: 04/18/25 17:11 Primary Reason for Your Visit: atrial fibrillation with RVR. Attending Provider: Kojo Rincon Primary Care Provider: Pavithra Henning Consulting Providers: Hanh Russo; Danny Wilkes; Aric Palomo; Landon Orozco; Dilcia Vazquez; Yocasta Marx; July Leon; Susy Sidhu NP; Michelle Rivas Instructions Additional Instructions / Restrictions: Patient will need to have a digoxin level in 2 weeks. Please send the results to Dr. Aric Palomo. Discharge Orders/Prescriptions Prescriptions: New acetaminophen 500 mg Tablet 1,000 mg PO Q8 Qty: 0 0RF digoxin 125 mcg (0.125 mg) Tablet See Rx Instructions .ROUTE .COMPLEX Qty: 30 0RF Rx Instructions: 0.125 mg PO every Thursday, Thursday, Thursday. oxycodone 5 mg Tablet 5 mg PO Q4H PRN PRN (Reason: Pain Score 4-10) 3 Days Qty: 12 0RF Continued coenzyme Q10 [Co Q-10] 200 mg capsule 200 mg PO DAILY epoetin beta, methoxy peg [Mircera] See Rx Instructions subcut .COMPLEX PRN (Reason: low blood counts) Patient Comments: GETS AT [facility]IALYS[facility] Rx Instructions: only in dialysis subcutaneously PRN; administered by dialysis infusion atorvastatin 40 mg tablet 40 mg PO QHS Qty: 90 3RF psyllium husk [Metamucil] 0.4 gram capsule 0.4 g PO DAILY octreotide,microspheres [Sandostatin [place]] 30 mg suspension,extended rel recon 30 mg IM Q4W Qty: 1 3RF cyanocobalamin (vitamin B-12) [Vitamin B-12] 1,000 mcg tablet 1,000 mcg PO DAILY sevelamer carbonate 800 mg tablet 800 mg PO TIDCM aspirin 81 mg Tablet,Chewable 81 mg PO DINNER pantoprazole [Protonix] 40 mg tablet,delayed release (DR/EC) 40 mg PO BID 30 Days Qty: 60 1RF Dialyvite 800 0.8 mg tablet 1 tab PO SUMOWEFR cinacalcet [Sensipar] 90 mg tablet 90 mg PO TUTHSA Rx Instructions: TAKE 1 TAB AFTER DIALYSID ONLY/ cholecalciferol (vitamin D3) 125 mcg (5,000 unit) capsule 125 mcg PO TUTHSA amiodarone 200 mg Tablet 200 mg PO BID Qty: 60 0RF midodrine 10 mg tablet 10 mg PO TID PRN (Reason: low blood pressure.) Qty: 20 0RF Rx Instructions: do not give last dose of day after 6PM or within 4 hrs of bedtime Discontinued acetaminophen 500 mg tablet 1,000 mg PO BID Referrals / Follow Up: [facility] [Provider Group] - Within 1 Month Pavithra Henning MD [Primary Care Provider] - Within 2 Weeks Disposition Disposition (needs filled in before D/C Order can be placed): Shelter Facility
--- NOTE | 2025-04-20 10:07 | CASEMGMT ---
Addendum entered by Minnie Alvarenga 04/20/25 11:02: [facility] indicated they can do assist patient inside. SW went to patient's room. Patient's was present. SW let them both know that [facility] can help him out of the car and into the building. SW told patient's to park under the awning and go inside to let them know she needs assistance getting patient inside. Patient's was very thankful and appreciative. Patient asked SW how this works, he has never done it before. SW explained the process to patient. Patient said he was talking about at [facility]. SW told patient when he gets there the nurse will get him checked in. Beyond that SW cannot tell him exactly what will happen. SW asked dialysis nurse in the room when patient will be done with dialysis. Patient, Said hold on I have not eaten and would like to eat before I go. SW told patient that is fine. SW was simply asking the dialysis nurse when his dialysis will be done. Patient's thanked ANDERSON. SW completed a 7000 in [place]. Plan: d/c to [facility] under skilled level of care on a convalescent stay. Patient's will transport patient via private vehicle. Minnie Alvarenga FIRST AID TEACHERJil DURON Original Note: SW went to notify patient that [facility] is non smoking and is he okay with this. SW re-introduced self as patient did not appear to recognize SW from yesterday. Patient said he is fine with not smoking. Patient was aware he will be discharged today. SW asked patient if he will need transportation to [facility] or if he will need SW to set up transport. Patient said he will need transport arranged. SW told patient that he will get a bill as wheelchair van is not covered by insurance. Patient then asked SW if staff here would help him in his car and then the staff at [facility] help him into [facility]. SW told patient SW will ask [facility] and let him know. SW asked Catherine d/c business planning director to please ask [facility]. Plan: d/c to [facility] under skilled level of care. Minnie Alvarenga FIRST AID TEACHERJil DURON
--- NOTE | 2025-04-20 10:21 | PCM.DC.SUM ---
Providers Date of Admission: 04/18/25 Primary Care Physician: Dr. Pavithra Henning MD Consultations 04/18/25 18:31 Consult: Cardiology Routine Consulting Provider: Aric Palomo Reason for Consult: recurrent afib w/ rvr EMERGENT Consult: No Notified: Yes Date Notified: 04/18/25 Time Notified: 04:00 Method of Notification: ED Physician Initiated Consult: Hospice / Palliative Care Routine Consulting Provider: [facility] Reason for Consult: ESRD on HD, recurrent GIB, recurrent afib w/ rvr EMERGENT Consult: No Notified: Yes Date Notified: 04/18/25 Time Notified: 17:36 Method of Notification: per casemanagement Consult: Nephrology Routine Consulting Provider: Hanh Russo Reason for Consult: ESRD on HD EMERGENT Consult: No Notified: Yes Date Notified: 04/18/25 Time Notified: 22:39 Method of Notification: Answering Service Reason For Visit: RECURRENT AFIB W/RVR Diagnosis Discharge Diagnosis (1) Atrial fibrillation with rapid ventricular response: Status: Acute Code(s): I48.91 - Unspecified atrial fibrillation Plan: IV amiodarone bolus, and PO 200 BID Digoxin Not a candidate for anticoagulation given GI bleeds Per cardiology: digoxin 0.125 QMWF and check digoxin level in 2 weeks. Follow up with [facility] in 2 weeks. A HR of 100-130 will be acceptable. (2) Non-ST elevation MS (NSTEMI): Status: Acute Code(s): I21.4 - Non-ST elevation (NSTEMI) myocardial infarction Plan: Trops 2860 to 2616 to 2677. Last admission was was 159 to 214 to 394 PT w known lesion in the circumflex that not been stented given h/o bleeding. Demand ischemia as well with the Afib w RVR and known cardiomyopathy with an EF 25%. Plan GI bleeds: has had bleeding angiodysplasias and EGD on 04/10 showed grade I esophageal varices w no stigmata of recent bleeding. Erythematous mucosa in the stomach. Portal hypertensive gastropathy. 2 bleeding angiodysplastic lesions in the stomach, treated w heater probe. Stable. Pain: discussed with patient and family. We can be more aggressive with pain control and focus on quality of life. He is not open to hospice at this time, but open to palliative care. Will schedule acetaminophen, avoid NSAIDs, oxycodone. Chronic conditions: ESRD on HD? Nephrology consulted. On HD Thursday. Last HD session on day prior to admission. Appreciate nephrology recommendations. Recent CVA with right carotid artery stenosis, hypertension, hyperlipidemia, history of bicuspid aortic valve s/p TAVR? Recent hospitalization in early January for acute CVA. Was found to have severe right-sided carotid artery stenosis. Vascular surgery followed and noted that his severe anemia was likely contributing to the severe findings on carotid ultrasound and it was felt this was not the source of his stroke. Was suspected by neurology to be an ischemic stroke. Patient did not wear heart monitor to evaluate for A-fib. Continue home aspirin, statin, and Coreg. Holding home losartan in setting of mild hypotension on admission, resume as able. HFrEF: ACEi/ARB, BB held given issues with hypotension. May restart at a later point as outpt. VTE prophylaxis: SCDs. Medications at Discharge Home Medications cyanocobalamin (vitamin B-12) 1,000 mcg tablet (Vitamin B-12) 1,000 mcg PO DAILY supplement 01/12/24 coenzyme Q10 200 mg capsule (Co Q-10) 200 mg PO DAILY supplement 12/02/24 epoetin beta, methoxy peg See Rx Instructions subcut .COMPLEX PRN low blood counts 12/02/24 sevelamer carbonate 800 mg tablet 800 mg PO TIDCM phosphate binder 12/27/24 aspirin 81 mg chewable tablet 81 mg PO DINNER heart [employer] 01/19/25 pantoprazole 40 mg tablet,delayed release (Protonix) 40 mg PO BID stomach 30 days #60 tabs 02/10/25 atorvastatin 40 mg tablet 40 mg PO QHS cholesterol #90 tabs 03/20/25 psyllium husk 0.4 gram capsule (Metamucil) 0.4 g PO DAILY bowls 03/23/25 octreotide,microspheres 30 mg intramuscular susp, extended release (Sandostatin LAR Depot) 30 mg IM Q4W bowels #1 ea 03/27/25 cholecalciferol (vitamin D3) 125 mcg (5,000 unit) capsule 125 mcg PO TUTHSA supplement 04/09/25 cinacalcet 90 mg tablet (Sensipar) 90 mg PO TUTHSA para thyroid hormone 04/09/25 vitamin B complex-vitamin C-folic acid 0.8 mg tablet (Dialyvite 800) 1 tab PO SUMOWEFR vitamin 04/09/25 amiodarone 200 mg tablet 200 mg PO BID #60 tabs 04/12/25 midodrine 10 mg tablet 10 mg PO TID PRN low blood pressure. #20 tabs 04/12/25 acetaminophen 500 mg tablet 1,000 mg (2 x 500 mg) PO Q8 #0 tabs 04/20/25 digoxin 125 mcg (0.125 mg) tablet See Rx Instructions .Route .COMPLEX #30 tabs 04/20/25 oxycodone 5 mg tablet 5 mg PO Q4H PRN PRN Pain Score 4-10 3 days #12 tabs 04/20/25 Hospital Course Operations None Procedures None Summary of Care Provided Minutes Spent on Discharge: 32 Hospital Course: This is a 70-year-old male who presents with weakness and dyspnea on exertion. Patient was noted to be in atrial fibrillation with RVR. To help control his heart rate, he received IV amiodarone as well as p.o. amiodarone for 100 mg twice daily. Did receive IV digoxin as well as oral digoxin. Heart rate overall has improved. Additionally patient did have a non-ST patient cardia infarction with elevated troponins into the thousands. Patient does have a known lesion to the circumflex but has not been intervened upon because of his history of GI bleeds. It is likely that, nation of demand ischemia with A-fib with RVR as well as his known CAD was likely culprit in regards to his NSTEMI. Patient does have reduced ejection fraction with an EF of 25%. Cardiology had a lengthy conversation with the patient and his family family is now DNR Comfort Care arrest with no intubation. He was agreeable to palliative care but not hospice at this time. Patient will continue with medical management for his atrial fibrillation and to continue with hemodialysis. Did also discuss palliation with him patient does complain of pain in his shoulders due to arthritis. Put him on scheduled acetaminophen 1000 mg 3 times daily as well as as needed oxycodone. Patient does have a history of opiate dependence in the past but given his multiple medical comorbidities explained to him that pad of care will be able to help assist in regards to symptomatic control in regards to his numerous medical comorbidities. Patient is weak as he was just discharged from the hospital for GI bleed and atrial fibrillation. Patient be going to [facility] in stable condition. Additionally for the patient's atrial fibrillation, cardiology feels that will be acceptable for the patient at heart rate from 100-1 30s. Patient does have a digoxin level in 2 weeks and to follow-up with the heart group in 1 month. Weight / BMI Weight Weight: 87 kg Body Mass Index (BMI) 27.4 ABG / Lab / Microbiology Data 04/20/25 06:52 04/20/25 06:52 Laboratory: Laboratory Results - last 24 hr 04/20/25 06:52: WBC 8.5, RBC 3.22 L, Hgb 9.9 L, Hct 32.0 L, MCV 99.4 H, MCH 30.7, MCHC 30.9 L, RDW Std Deviation 67.8 H, RDW Coeff of Brynn 18.6 H, Plt Count 184, MPV 12.5 H, Immature Gran % (Auto) 0.600, Neut % (Auto) 79.8 H, Lymph % (Auto) 8.0 L, Routt % (Auto) 10.7 H, Eos % (Auto) 0.8, Baso % (Auto) 0.1, Absolute Neuts (auto) 6.8, Absolute Lymphs (auto) 0.68 L, Nucleated RBC % 0.5, Anisocytosis 2+, Sodium 138, Potassium 3.5, Chloride 94 L, Carbon Dioxide 26.7, Anion Gap 17 H, BUN 40 H, Creatinine 6.97 H, Estim Creat Clear Calc 10.33 L, Est GFR (MDRD) Non-Af 8 L, BUN/Creatinine Ratio 5.8 L, Glucose 86, Calcium 8.9 D/C Instructions DC O2, CPAP, BIPAP Needs Home O2 Discharge instructions: No Please Follow Up With: Aric Palomo MD Meaningful Use Info Meaningful Use Meaningful Use Diagnoses (Choose all that apply): None applicable Ischemic Stroke Statin Dosing Therapy Reference: STATIN DOSE THERAPY REFERENCE: * Patients > 75 years receive moderate or high dose statin therapy. * Patients 75 years or YOUNGER should receive HIGH intensity statin dose unless contraindicated. You will be required to document reason for non-treatment if statin daily dose does not meet guidelines. HIGH DOSE STATIN THERAPY DAILY Atorvastatin > than or = to 40 mg Rosuvastatin > than or = to 20 mg Amlodipine + Atorvastatin > than or = to 2.5/40 mg Ezetimibe + Simvastatin 10/80 mg Simvastatin 80mg Discharge Plan Admission Admit Date/Time: 04/18/25 17:11 Primary Reason for Your Visit: atrial fibrillation with RVR. Attending Provider: Kojo Rincon Primary Care Provider: Pavithra Henning Consulting Providers: Hanh Russo; Danny Wilkes; Aric Palomo; Landon Orozco; Dilcia Vazquez; Yocasta Marx; July Leon; Susy Sidhu EYEGLASS FITTER; Michelle Rivas Instructions Additional Instructions / Restrictions: Patient will need to have a digoxin level in 2 weeks. Please send the results to Dr. Aric aPlomo. Patient will need to meet with Palliative care in regards to symptom managment. Discharge Orders/Prescriptions Prescriptions: New acetaminophen 500 mg Tablet 1,000 mg PO Q8 Qty: 0 0RF digoxin 125 mcg (0.125 mg) Tablet See Rx Instructions .ROUTE .COMPLEX Qty: 30 0RF Rx Instructions: 0.125 mg PO every Thursday, Thursday, Thursday. oxycodone 5 mg Tablet 5 mg PO Q4H PRN PRN (Reason: Pain Score 4-10) 3 Days Qty: 12 0RF Continued coenzyme Q10 [Co Q-10] 200 mg capsule 200 mg PO DAILY epoetin beta, methoxy peg [Mircera] See Rx Instructions subcut .COMPLEX PRN (Reason: low blood counts) Patient Comments: GETS [facility] Rx Instructions: only in dialysis subcutaneously PRN; administered by dialysis infusion atorvastatin 40 mg tablet 40 mg PO QHS Qty: 90 3RF psyllium husk [Metamucil] 0.4 gram capsule 0.4 g PO DAILY octreotide,microspheres [Sandostatin LAR Depot] 30 mg suspension,extended rel recon 30 mg IM Q4W Qty: 1 3RF cyanocobalamin (vitamin B-12) [Vitamin B-12] 1,000 mcg tablet 1,000 mcg PO DAILY sevelamer carbonate 800 mg tablet 800 mg PO TIDCM aspirin 81 mg Tablet,Chewable 81 mg PO DINNER pantoprazole [Protonix] 40 mg tablet,delayed release (DR/EC) 40 mg PO BID 30 Days Qty: 60 1RF Dialyvite 800 0.8 mg tablet 1 tab PO SUMOWEFR cinacalcet [Sensipar] 90 mg tablet 90 mg PO TUTHSA Rx Instructions: TAKE 1 TAB AFTER DIALYSID ONLY/ cholecalciferol (vitamin D3) 125 mcg (5,000 unit) capsule 125 mcg PO TUTHSA amiodarone 200 mg Tablet 200 mg PO BID Qty: 60 0RF midodrine 10 mg tablet 10 mg PO TID PRN (Reason: low blood pressure.) Qty: 20 0RF Rx Instructions: do not give last dose of day after 6PM or within 4 hrs of bedtime Discontinued acetaminophen 500 mg tablet 1,000 mg PO BID Referrals / Follow Up: [facility] [Provider Group] - Within 1 Month Pavithra Henning MD [Primary Care Provider] - Within 2 Weeks Disposition Disposition (needs filled in before D/C Order can be placed): Alf Facility Charges/Coding Visit Charges Inpatient E&M: 30987 Disch Hosp >30min
[2025-04-20] MEDS: PureFlow B 3K Dialysis Soln 1 BAG 6 BAG PF (10:36)
[2025-04-20] MEDS: 0.9% Normal Saline 1,000 ML IV.SOLN. 1000 ML OPERA.SITE (10:36)
--- NOTE | 2025-04-20 10:50 | CASEMGMT ---
REBECCA REDMOND NOTE: Discharge order is in. Call placed to Fabby @ [facility] and she was made aware. Also aware pt is discharging to [facility]. Gordon JEROME RN CM
--- NOTE | 2025-04-20 10:52 | CASEMGMT ---
Discharge Planning Discharge orders, signed med list, and transport time sent to [facility]. Pts will transport patient after dialysis/lunch. Nursing and SW updated. Catherine Portillo DC Planning Asst
[2025-04-20] MEDS: Amiodarone 200 MG Tablet 400 MG PO (13:09)
[2025-04-20] MEDS: Cyanocobalamin 500 MCG Tablet 1000 MCG PO (13:10)
[2025-04-20] MEDS: Digoxin 125 MCG Tablet PO (13:10)
--- NOTE | 2025-04-20 13:44 | PN.RENAL_ITS ---
Subjective Subjective no new events Objective Data Objective Data Vital Signs: Vital Signs Temp Pulse Resp BP Pulse Ox O2 Del Method 98.0 F 128 H 14 119/89 H 98 Room Air 04/20/25 12:47 04/20/25 13:10 04/20/25 12:47 04/20/25 12:47 04/20/25 12:47 04/20/25 12:47 Oxygen Delivery Method Room Air Weight: 84.6 kg Body Mass Index (BMI) 26.6 Intake & Output: Intake and Output for Last 24 Hours 04/18/25 04/19/25 04/20/25 23:59 23:59 23:59 Intake Total 1103 / 1103 900 / 900 Output Total 3340 / 3340 Balance 1103 / 1103 900 / 900 -3340 / -3340 Lab / Micro Data 04/20/25 06:52 04/20/25 06:52 Labs: Laboratory Results - last 24 hr 04/20/25 06:52: WBC 8.5, RBC 3.22 L, Hgb 9.9 L, Hct 32.0 L, MCV 99.4 H, MCH 30.7, MCHC 30.9 L, RDW Std Deviation 67.8 H, RDW Coeff of Brynn 18.6 H, Plt Count 184, MPV 12.5 H, Immature Gran % (Auto) 0.600, Neut % (Auto) 79.8 H, Lymph % (Auto) 8.0 L, Frederick % (Auto) 10.7 H, Eos % (Auto) 0.8, Baso % (Auto) 0.1, Absolute Neuts (auto) 6.8, Absolute Lymphs (auto) 0.68 L, Nucleated RBC % 0.5, Anisocytosis 2+, Sodium 138, Potassium 3.5, Chloride 94 L, Carbon Dioxide 26.7, Anion Gap 17 H, BUN 40 H, Creatinine 6.97 H, Estim Creat Clear Calc 10.33 L, Est GFR (MDRD) Non-Af 8 L, BUN/Creatinine Ratio 5.8 L, Glucose 86, Calcium 8.9 Rhythm Strip Rhythm Strip: A-fib Rate: 120 Physical Exam Narrative Alert awake oriented x 3 no obvious distress no pallor no icterus no JVD s1s2 no murmurs lungs clear Assessment & Plan Assessment/Plan (1) End-stage renal disease on hemodialysis: PLAN: On hemodialysis Thursday, , Thursday schedule. A-fib with RVR. Cardiology note reviewed. HR is better Anemia. Due to ESRD and GI bleed. Has had multiple hospitalizations due to GI bleed in the past. Closely monitor hemoglobin. Gets IV iron and HERMINIO for maintenance in HD.
--- NOTE | 2025-04-20 14:52 | CHAPLAIN ---
Type of Pastoral Visit ___ Initial Visit _x__ Follow-up Visit ___ On-call Visit ___ General Patient Visit ___ Spiritual Assessment ___ Family Conference ___ Bereavement ___ Rapid Response ___ Code Blue ___ Other (describe below) Pastoral Care Referral From _x__ Patient _x__ Family ___ Nurse ___ Physician ___ Warehouse Shipping Associate ___ Vacuum Pan Operator ___ Other (describe below) Sacrament/Intervention _x__ Active listening ___ Anointing ___ Hoahaoism ___ Bereavement ___ Communion ___ Mee exploration ___ ___ Life review ___ Prayer ___ Reconciliation ___ Sacrament of Sick _x__ Supportive presence ___ Wedding ___ Other (describe below) Pastoral Comments patient is completing dialysis and expects to be transferred to [facility] this afternoon; pt is expressive of his care given in particular of the spiritual help that has given pt more peace and answers; spouse is very expressive of the impact that the pt and many family members have had by the care and in particular the spiritual support given to them; pt acknowledges that he is facing the last season of his life and that his needs have been met here; at this point the DR came into room and the visit ended
--- NOTE | 2025-04-20 15:53 | NURSING ---
Report called to Keke at [facility], at this time by this RN.
== END 2025-04-20 15:58 | disposition skilled nursing facility (03) | DRG 280 ==
LOC: ED 17:55 → PCU 18:05
PROVIDERS: Admitting Provider Hospitalist; Emergency Provider Emergency Medicine; PCP Internal Medicine
DX: I48.91 Unspecified atrial fibrillation (principal); I21.A1 Myocardial infarction type 2; N18.6 End stage renal disease; I13.2 Hypertensive heart and chronic kidney disease with heart failure and with stage 5 chronic kidney disease, or end stage renal disease; E87.20 Acidosis, unspecified; K76.6 Portal hypertension; I50.22 Chronic systolic (congestive) heart failure; I85.00 Esophageal varices without bleeding; D63.1 Anemia in chronic kidney disease; R62.7 Adult failure to thrive; Z51.5 Encounter for palliative care; I65.21 Occlusion and stenosis of right carotid artery; D50.0 Iron deficiency anemia secondary to blood loss (chronic); Z95.2 Presence of prosthetic heart valve; Z99.2 Dependence on renal dialysis; E78.5 Hyperlipidemia, unspecified; I25.10 Atherosclerotic heart disease of native coronary artery without angina pectoris; E87.6 Hypokalemia; I95.9 Hypotension, unspecified; I42.9 Cardiomyopathy, unspecified; F17.210 Nicotine dependence, cigarettes, uncomplicated; M19.011 Primary osteoarthritis, right shoulder; M19.012 Primary osteoarthritis, left shoulder; Z66 Do not resuscitate; Z79.82 Long term (current) use of aspirin; Z86.73 Personal history of transient ischemic attack (TIA), and cerebral infarction without residual deficits
CPT/HCPCS: 36415; 71045; 80048; 83605; 83735; 83880; 84484; 85025; 85027; 90937; 93005; 94668; 97162; 97166; 99285; A4216; G0257

== ENCOUNTER → 2025-05-08 | Outpatient (CLI) | payer MEDICARE, BC, SELFPAY ==
[2025-02-10 11:35] VITALS: BMI 29.4
--- NOTE | 2025-05-08 13:57 | AVDS_ITS ---
Reason For Study Reason For Study: AVF LEFT Lt Radial-Cephalic AVF Inflow, 127/63 cm/s Inflow, 789 ml/min. Anastomosis, 167/97 cm/s Anastomosis, 656 ml/min. Prox graft, 269/189 cm/s Prox graft, 333 ml/min. Mid graft, 584/324 cm/s Mid graft, 1212 ml/min. Distal graft, 508/348 cm/s Distal graft, 1601 ml/min. Outflow, 55/38 cm/s Outflow, 346 ml/min. VL/AV Fistula/Dialysis Graft Scan Interpretation Summary Left upper extremity fistula patent with diminished flow volume proximal. Aneurysmal to 1.7 cm mid fistula. Ordering Physician: Eunice Estrada Referring Physician: Pavithra Henning Performed By: Lesly Badillo, DON, RVT
== END | disposition home or self-care (01) ==
LOC: CVS 13:57
PROVIDERS: PCP Internal Medicine; Referring Provider Physician Assistant; Visit Provider Physician Assistant
DX: I77.0 Arteriovenous fistula, acquired (principal); R60.0 Localized edema
CPT/HCPCS: 93990

== ENCOUNTER → 2025-05-15 | Outpatient (CLI) | payer MEDICARE, BC, SELFPAY ==
[2025-02-10 11:35] VITALS: BMI 29.4
[2025-05-15 12:23] LABS: Hematocrit 44.1 % (40-54); Hemoglobin 14.0 g/dL (13.0-16.5); Immature Granulocytes Count 0.020 X10^3/uL (0.0-0.0); Mean Corp Hgb Conc 31.7 g/dL (32-36); Mean Corpuscular Volume 100.7 fL (80-94); Mean Platelet Vol. 12.0 fl (6.2-12.0); NRBC Flagged by Analyzer 0 % (0-5); POSITIVE COUNT YES; POSITIVE MORPHOLOGY YES; Platelet Count 94 K/mm3 (150-450); RBC Distribution Width CV 21.2 % (11.6-14.6); RBC Distribution Width SD 78.3 fl (35.1-43.9); Red Blood Count 4.38 M/mm3 (4.6-6.2); White Blood Count 4.1 K/mm3 (4.4-11.0)
[2025-05-15 12:28] LABS: Differential Indicated SCAN CRITERIA MET
[2025-05-15 12:56] LABS: Potassium 4.2 mmol/L (3.3-5.1)
[2025-05-15 13:01] LABS: AST(SGOT) 34 U/L (<=37); Alanine Aminotransfer ALT/SGPT 17 U/L (<=46); Albumin, Serum 4.1 g/dL (3.4-4.8); Alkaline Phosphatase 90 U/L (40-129); Bilirubin, Direct 0.39 mg/dL (0.00-0.30); Globulin 2.7 g/dL (2.2-4.2)
[2025-05-15 13:45] LABS: Differential Comment SCANNED
== END | disposition home or self-care (01) ==
LOC: BIMLAB 10:57
PROVIDERS: Nurse Practitioner Acute Care; PCP Internal Medicine; Referring Provider Nurse Practitioner Family; Visit Provider Nurse Practitioner Family
DX: R74.8 Abnormal levels of other serum enzymes (principal); N18.6 End stage renal disease; Z99.2 Dependence on renal dialysis; D64.9 Anemia, unspecified
CPT/HCPCS: 36415; 80076; 84132; 85025

== ENCOUNTER 2025-08-09 07:03 | Day surgery (SDC) | payer MEDICARE, BC, SELFPAY ==
[2025-02-10 11:35] VITALS: BMI 29.4
[2025-08-08 09:14] VITALS: BMI 23.3
[2025-08-09 07:22] LABS: Hematocrit 47.6 % (40-54); Hemoglobin 15.3 g/dL (13.0-16.5); Mean Corp Hgb Conc 32.1 g/dL (32-36); Mean Corpuscular Volume 94.4 fL (80-94); Mean Platelet Vol. 12.0 fl (6.2-12.0); Platelet Count 127 K/mm3 (150-450); RBC Distribution Width CV 15.9 % (11.6-14.6); RBC Distribution Width SD 54.8 fl (35.1-43.9); Red Blood Count 5.04 M/mm3 (4.6-6.2); White Blood Count 4.3 K/mm3 (4.4-11.0)
--- NOTE | 2025-08-09 08:09 | HP.PCM_ITS ---
HPI - General HPI Narrative BINDU DUMONT, is a 69 M who presents with left radio-cephalic fistula with decreased access flow results. No prolonged bleeding or difficulty obtaining access. No issues completing sessions or excessive alarms. [facility] Medical History Recurrent gastrointestinal hemorrhage Generalized weakness Rheumatoid arthritis End-stage renal disease on hemodialysis Atrial fibrillation DNR (do not resuscitate) discussion Angiodysplasia of stomach and duodenum History of migraine Overweight (BMI 25.0-29.9) Tobacco abuse CAD (coronary artery disease) History of upper gastrointestinal bleeding More than 50 percent stenosis of right internal carotid artery Decreased left ventricular systolic function Left bundle branch block Aortic stenosis Aortic valve stenosis with insufficiency Bicuspid aortic valve determined by imaging Shoulder pain, right Hepatitis C test positive Chronic renal insufficiency, stage V Tobacco use HTN (hypertension) HFrEF (heart failure with reduced ejection fraction) Hypotension History of stroke Dialysis patient End stage chronic kidney disease Arteriosclerotic cardiovascular disease Elevated troponin ESRD (end stage renal disease) on dialysis Diverticulosis ESRD on hemodialysis Ischemic stroke Chronic anemia CVA (cerebral vascular accident) ESRD (end stage renal disease) Symptomatic anemia Carotid stenosis, right Acute anemia Black stool History of transcatheter aortic valve replacement (TAVR) Wears glasses History of steroid therapy History of renal disease Low iron Rheumatoid arthritis Back pain Migraine headache Dietary restriction History of diverticulitis History of ulceration Shortness of breath on exertion Lymphedema History of echocardiogram Cardiology follow-up encounter Hypertension Chronic renal failure Anemia DVT (deep venous thrombosis) End stage renal disease on dialysis Secondary hyperparathyroidism Acute on chronic anemia Acute upper GI bleed History of end stage renal disease History of renal dialysis Dialysis patient Hepatitis Smoker Bursitis Problem with dialysis access Rectal bleeding Subclavian aneurysm Kidney failure due to vascular disorder Cardiac disease Rheumatoid vasculitis Rheumatoid aortitis Home Medications ?Medication ?Instructions ?Recorded ?Last Taken ?Type cyanocobalamin (vitamin B-12) 1,000 mcg PO DAILY suppl ement 01/12/24 04/18/25 History 1,000 mcg tablet (Vitamin B-12) coenzyme Q10 200 mg capsule (Co 200 mg PO DAILY supple ment 12/02/24 04/18/25 History Q-10) aspirin 81 mg chewable tablet 81 mg PO DINNER heart he alth 01/19/25 04/08/25 History atorvastatin 40 mg tablet 40 mg PO QHS cholesterol #90 tabs 03/20/25 04/17/25 Rx vitamin B complex-vitamin C-folic 1 tab PO SUMOWEFR vi tamin 04/09/25 04/18/25 History acid 0.8 mg tablet (Dialyvite 800) acetaminophen 500 mg tablet 1,000 mg PO BID 05/15/25 U nknown History calcium polycarbophil 625 mg 625 mg PO QDAY #90 tabs 0 05/22/25 Unknown Rx tablet (Fiber Therapy (ca polycarbophil)) octreotide,microspheres 30 mg 30 mg IM Q4W bowels #1 e a 05/22/25 Unknown Rx intramuscular susp, extended release (Sandostatin LAR Depot) pantoprazole 40 mg tablet,delayed 40 mg PO BID stomach 90 days #180 05/22/25 Unknown Rx release (Protonix) tabs amiodarone 200 mg tablet 200 mg PO QDAY #30 tabs 05/09 04/02 Unknown Rx digoxin 125 mcg (0.125 mg) tablet See Rx Instructions .Route 05/23/25 Unknown Rx .COMPLEX #30 tabs midodrine 10 mg tablet 10 mg PO .COMPLEX low blood 05/23/25 Unknown Rx pressure. #20 tabs oxycodone 5 mg tablet 5 mg PO Q4 PRN pain 06/21/25 Unknown History Allergy/AdvReac Type Severity Reaction Status Date / Time No Known Allergies Allergy Verified 07/17/25 10:23 Family History Father Heart disease Atrial fibrillation Mother , 88 Heart disease Myocardial infarction Brother Heart disease Myocardial infarction Surgical History History of cardiac catheterization Hx of colonoscopy with polypectomy History of esophagogastroduodenoscopy (EGD) Hx of arteriovenostomy for renal dialysis (~12/2019) Status post insertion of dialysis catheter (~11/2019) History of umbilical hernia s/p subclavian graft S/P knee surgery History of bicuspid aortic valve Social History adopted: No household members: spouse housing: house number of children: 2 current occupational status: retired pets and animals: No sexually active: No Smoking Status: Former smoker Tobacco: How many years used: 40 how long ago did patient quit smokin.5 months ago quit status: has quit before alcohol intake: never substance use type: does not use caffeine: Yes (2) Type: coffee Number of servings: 2 what type of physical activity do you participate in: aerobics and other details: leg excercises frequency: 3-4 times per week do you feel safe at home: Yes ROS Constitutional Constitutional: Denies chills, fever(s), frequent falls, lethargy or weakness Eyes Eyes: Denies blind spots, change in vision or loss of vision ENT HEENT: Denies bleeding gums, hoarseness or sore throat Cardiovascular Cardiovascular: Denies abdominal pain, bluish discoloration of hand/feet, chest pain with activity, claudication, cold extremities, cyanosis, dyspnea on exertion, erythema on extremities, irregular heart rhythm, leg edema, leg ulcers, numbness in extremities or weakness in extremities Respiratory/Chest Respiratory/Chest: Denies cough, excessive phlegm production, shortness of breath at rest, shortness of breath with exertion or wheezing Gastrointestinal Gastrointestinal: Denies anorexia, change in stool character, constipation, diarrhea, melena or rectal bleeding Genitourinary Genitourinary: Denies dysuria or hematuria Musculoskeletal Musculoskeletal: Denies abnormal gait Integumentary Integumentary: Reports other Details: ; Denies erythema, non-healing lesions or wounds Neurologic Neurologic: Denies abnormal speech, focal weakness, headache(s), loss of vision, numbness, paresthesias or sensory deficit Hematologic/Lymphatic Hematologic/Lymphatic: Denies easy bleeding, easy bruising or lymphadenopathy Vital Signs Vital Signs Vital Signs: Weight Weight: 163 lb Body Mass Index (BMI) 23.3 Physical Exam Const alert, oriented x3, no apparent distress and healthy appearing General Appearance: cooperative; Negative for combative or lethargic Orientation / Consciousness: awake Exam Limitations: no limitations HEENT Head and Scalp: normocephalic and atraumatic Eyes EOMs intact bilaterally General Eye: normal appearance of both eyes Neck full ROM General: trachea midline Resp normal respiratory effort and no use of accessory muscles Effort and Inspection: Negative for labored, stridor or audible wheezes Cardio regular rate and regular rhythm Peripheral Pulses: brachial pulses present and radial pulses present Back/Spine Cervical Spine: cervical ROM normal Extremity full ROM, normal capillary refill and no clubbing, cyanosis or edema Skin no rashes or lesions noted and no wounds Neuro oriented x3, CN's II-XII intact bilaterally, no focal motor deficits and no sensory deficits noted Psych thought process normal, cooperative, affect normal, speech normal and activity/motor behavior normal Results Lab / Micro Data 08/09/25 07:09 Labs: Laboratory Results - last 24 hr 08/09/25 07:09: WBC 4.3 L, RBC 5.04, Hgb 15.3, Hct 47.6, MCV 94.4 H, MCH 30.4, MCHC 32.1, RDW Std Deviation 54.8 H, RDW Coeff of Brynn 15.9 H, Plt Count 127 L, MPV 12.0 Assessment & Plan Assessment/Plan (1) Arteriovenous fistula stenosis: QUALIFIERS: Encounter type: initial encounter Qualified Code(s): T82.858A - Stenosis of other vascular prosthetic devices, implants and grafts, initial encounter PLAN: -fistulagram
--- NOTE | 2025-08-09 11:32 | PCM.OPRPT ---
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 He is noted to have decreased access flow volume measurements by the dialysis unit. The fistula is functioning well and he has no recent bleeding episodes or access difficulty. He presents now for fistulogram with possible intervention. Description of procedure: Upon obtaining informed consent and verification correct patient procedure and site the patient was taken to the [facility] where he was positioned prepped and draped in usual sterile fashion. Timeouts performed consultation ministered Versed and fentanyl. Skin overlying the fistula was anesthetized 1% lidocaine the vessel accessed under ultrasound guidance with a micropuncture needle and wire. This was then exchanged for the 7 Divehi short fistula sheath advanced without resistance. Through the 7 Divehi sheath hand-injection subtraction imaging of the fistula was obtained. In order to visualize the the more proximal fistula adjacent to the anastomosis a Kumpe catheter was advanced and manual pressure held on the outflow of the fistula while imaging was obtained. This revealed 2 aneurysmal segments with an intervening normal caliber cephalic that had a stenosis greater than 75% at the distal aspect. The cephalic vein from the anastomosis to the access sites was patent normal caliber with no sign of stenosis. A BMW wire was then advanced and navigated into the radial artery and the catheter withdrawn. An intravascular ultrasound probe was then advanced and recorded pullback performed of the radial artery, cephalic fistula from the anastomosis to the sheath. 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 The segments of the fistula between the anastomosis and the access sites and between the 2 access sites with smaller in caliber at approximately 4.5 to 5 mm throughout but given the satisfactory function of the fistula is felt that the area of stenosis was the only culprit in the diminished readings at the dialysis center. The patient was then heparinized allowed to circulate for 3 minutes. A 4 mm x 20 Saul angio sculpt angioplasty balloon was then advanced and centered on the area of stenosis and inflated to nominal for multiple inflations then deflated withdrawn. Repeat angiography revealed resolution of the area of stenosis with no extravasation or dissection. Next a [employer] Arin [employer] 5 x 40 paclitaxel coated angioplasty balloon was advanced centered on the area of stenosis and inflated to nominal for 2 minutes and deflated and withdrawn. Completion angiography confirmed satisfactory radiographic result with brisk contrast transit and no extravasation or dissection. Sequential subtraction angiography of the venous outflow including to the vena cava was then performed which revealed patent large caliber cephalic and basilic veins in the upper arm as well as a very large single dominant brachial vein. The axillary and subclavian vein were patent to the costoclavicular angle at which point the vein tapered and appeared to be totally occluded with significant collateral contrast transit towards the IJ and the thoracic cavity. Is felt that given his current clinical situation with regards to his access and no signs of any arm edema/prolonged bleeding/high pressure alarms on the dialysis circuit that we would not attempt anything with the central venous occlusion. Should he develop symptoms it would be reasonable to potentially pursue though with the risk given the location. Wires and catheter then withdrawn and a nylon pursestring placed at the access site after which the sheath was removed and manual pressure until hemostasis was observed. The patient was then taken to recovery with plan discharge to home. Surgical Findings: See above Complications Complications: No
== END 2025-08-09 10:30 | disposition home or self-care (01) ==
PROVIDERS: PCP Internal Medicine; Referring Provider Surgery Trauma Surgery; Visit Provider Surgery Trauma Surgery
DX: T82.858A Stenosis of other vascular prosthetic devices, implants and grafts, initial encounter (principal); I13.2 Hypertensive heart and chronic kidney disease with heart failure and with stage 5 chronic kidney disease, or end stage renal disease; N18.6 End stage renal disease; I50.22 Chronic systolic (congestive) heart failure; I25.10 Atherosclerotic heart disease of native coronary artery without angina pectoris; Z99.2 Dependence on renal dialysis; Z87.891 Personal history of nicotine dependence; Y71.8 Miscellaneous cardiovascular devices associated with adverse incidents, not elsewhere classified
CPT/HCPCS: 36415; 36902; 37252; 37253; 76937; 85027; 99152; 99153; C1725; C1753; C1769; C1894; C2623; Q9967

== ENCOUNTER → 2025-08-18 | Outpatient (CLI) | payer MEDICARE, BC, SELFPAY ==
[2025-02-10 11:35] VITALS: BMI 29.4
== END | disposition home or self-care (01) ==
PROVIDERS: PCP Internal Medicine; Referring Provider Surgery Trauma Surgery; Visit Provider Surgery Trauma Surgery
DX: I65.21 Occlusion and stenosis of right carotid artery (principal)
CPT/HCPCS: 93880